=== PATIENT | female | born 2000 | race Caucasian/White ===

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

== ENCOUNTER 2019-01-17 15:28 | Emergency (ER) | payer MEDICAID, SELFPAY ==
[2019-01-08 10:05] VITALS: BMI 36.3
[2019-01-17 15:29] VITALS: BP 121/80; PULSE 107; RESP 16; TEMP 36.7; O2SAT 96; BMI 39.9
--- NOTE | 2019-01-17 15:52 | ED.VISSUMM ---
- ER Visit Summary Date of Service: 01/17/19 Chief Complaint: Depression History of Present Illness: The patient is a 18 F who presents with depression that has been getting worse over the past 2 weeks. Patient states that has been waxing and waning. Patient states she has had decreased appetite and trouble sleeping. Patient denies any visual or auditory hallucinations. Patient denies any suicidal or homicidal ideations. Patient states nothing in particular has made her more depressed recently. Patient states she does have a history of depression but does not see a psychiatrist. Patient also thinks she may have a urinary tract infection and has been having some dysuria. Physical Examination: Vital signs are stable. Patient is afebrile. Patient is in no acute distress. Oral mucosa is pink and moist. Neck is supple. Trachea is midline. There is no JVD noted. Heart was regular rate and rhythm. Lungs are clear and equal bilateral. Abdomen is soft. Bowel sounds are normal. There is no tenderness. There is no guarding noted. Skin is warm dry. Cranial nerves II through XII are intact. There are no focal motor or sensory deficits noted. The remaining physical exam is within normal limits. Test Results: CBC, basic metabolic profile, serum alcohol level, and hCG were obtained and were all negative. Urinalysis showed leukocyte esterase of 100 with 5-10 epithelial cells. Urine tox screen was positive for benzodiazepines. Emergency Department Course and Treatment: Social work was then to evaluate the patient and will arrange for outpatient follow-up. Patient is not suicidal or homicidal at this time. I do not feel the patient requires hospitalization. Patient will follow-up as an outpatient. Patient understood and was agreeable with the plan. All questions were answered. Disposition: Discharge home Impression: Depression This note was generated with [employer] software. It may contain incorrect words, spelling, and punctuation that were not noted in review of the chart prior to signing ED Disposition - Plan for ED Patient: Disposition: Home or Assisted Living Diagnosis: Depression Instructions: Depression Referrals: Kenna Sanders MD [Primary Care Provider] - 3-5 Days
[2019-01-17 16:17] LABS: Absolute Lymphocyte Count 1.82 X10^3/uL (0.83-4.51); Absolute Neutrophil Count 3.5 X10^3/uL (2.0-7.7); Basophil# 0.04 X10^3/uL; Basophil% 0.7 % (0-1); Eosinophil# 0.24 X10^3/uL; Eosinophils% 3.9 % (0-5); Hemoglobin 12.7 g/dL (12.0-15.0); Lymphocyte # 1.82 X10^3/ul (4.0); Lymphocyte % 29.6 % (19-41); Mean Corp Hgb Conc 31.8 g/dL (32-36); Mean Corpuscular Hgb 26.3 pg (27.0-32.0); Mean Platelet Vol. 8.9 fl (6.2-12.0); Monocyte# 0.54 X10^3/uL; Monocyte% 8.8 % (0-10); NRBC Flagged by Analyzer 0 % (0-5); Neutrophil # 3.49 X10^3/uL (2.7-7.7); Neutrophil % 56.7 % (47-70); Platelet Count 330 K/mm3 (150-450); Red Blood Count 4.82 M/mm3 (4.2-5.4); White Blood Count 6.2 K/mm3 (4.4-11.0)
[2019-01-17 16:24] LABS: Internal QC Validated? YES +Cl - CLEAR BKGD; Pregnancy, Serum, hCG Quali. NEGATIVE Negative
[2019-01-17 16:28] LABS: Anion Gap 8 (5-15); BUN 10 mg/dL (7-18); Calcium,Total 9.4 mg/dL (8.5-10.1); Chloride 108 mmol/L (98-107); Creatinine, Serum 0.83 mg/dL (0.55-1.02); EST Glomerular Filtration Rate 94 mL/min (>60); Est Glom Filt Rate - Afr Amer 113 mL/min (>60); Estimated Creatinine Clearance 154.57 ml/min; Glucose 89 mg/dL (74-106); Potassium 3.6 mmol/L (3.5-5.1); Sodium Level 138 mmol/L (136-145)
[2019-01-17 16:50] LABS: Mucous, Urine 0 SEEN /hpf (<or=2+); Red Blood Cells-Urine 0 SEEN /hpf (0-5)
[2019-01-17 16:52] LABS: Color, Urine Yellow (Yellow); Glucose, Dipstick Normal (Normal); Ketone-Dipstick 15 mg/dl (Negative); Leukocyte Esterase-Dipstick 100 /ul (Negative); Nitrite-Dipstick Negative (Negative); Occult Blood-Urine 25 /ul (Negative); Protein-Dipstick 15 mg/dl (Negative); Specific Gravity, Urine 1.025 (1.002-1.030); Urine Bilirubin Dipstick Negative (Negative); Urine Clarity Sl. Cloudy (Clear); Urine Urobilinogen Normal (Normal)
[2019-01-17 17:06] LABS: Bacteria 1+ /hpf (None Seen); Squamous Epithelial Cells - UA 5-10 SEEN /hpf (5-10); White Blood Cells 0-5 SEEN /hpf (0-5)
[2019-01-17 17:09] LABS: Amphetamine Urine VISTA NEGATIVE (<1000 ng/mL); Barbiturate Urine VISTA NEGATIVE (< 200 ng/mL); Benzodiazepine Urine VISTA POSITIVE (< 200 ng/mL); Cocaine Urine VISTA NEGATIVE (< 300 ng/mL); Ecstacy Urine VISTA NEGATIVE (< 500 ng/mL); Methadone Urine VISTA NEGATIVE (< 300 ng/mL); PCP Urine VISTA NEGATIVE (< 25 ng/mL); THC Urine VISTA NEGATIVE (< 50 ng/mL); Vista UDS pH Range 6
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
== END 2019-01-17 17:38 | disposition home or self-care (01) ==
PROVIDERS: Emergency Provider Emergency Medicine; Family Provider Pediatrics; PCP Pediatrics
DX: F32.9 Major depressive disorder, single episode, unspecified (principal); R30.0 Dysuria; J45.909 Unspecified asthma, uncomplicated; K21.9 Gastro-esophageal reflux disease without esophagitis; Z79.899 Other long term (current) drug therapy
CPT/HCPCS: 36415; 80048; 80307; 80320; 81001; 84703; 85025; 99282; G0480

== ENCOUNTER 2019-01-21 08:00 | Outpatient (RCR) | payer MEDICAID, SELFPAY ==
[2018-12-09 08:43] VITALS: BMI 41.9
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
--- NOTE | 2019-04-03 08:06 | HP.PT.NRP ---
HP - Discharge Summary (1) - Patient Information SAUD CARREON was seen in my office for initial evaluation on 12/16/18. The following Plan of Care was established for this patient: Initial Frequency: 2-3x /Week Initial Duration: 4-6 Weeks - Anticipated Interventions Patient/Client Instruction: Educate patient on: Condition, Plan of Care, Risk Factors, Benefits of Fitness Program For the Purpose of:: To improve self management Therapeutic Exercise to Include: Strength training, Endurance training, Balance training, Postural training, Flexibilty training, Gait and locomotor training, Passive ROM, Active ROM, Dynamic Lumbar Stabilization For the Purpose of:: To decrease pain, To increase ROM, To improve muscle performance and motor function, To increase tolerance to activity/condition/position, To improve ability of physical actions for home/community/work/leisure, To improve gait and locomotor functions This patient was last seen in our office . Pertinent comments regarding their Physical therapy will appear below: Patient has not atteneded PT in over 8 weeks and is appropriate for d/c- return to MD for further evaluation as needed. At this point I will be discontinuing this patient from physical therapy. I would be happy to see this patient again in the future if found appropriate by the physician. Thank you! Keily Cook DPT
== END 2019-01-21 19:00 | disposition home or self-care (01) ==
LOC: PT 08:00
PROVIDERS: Family Provider Pediatrics; PCP Pediatrics; Visit Provider Physician Assistant
DX: Z98.890 Other specified postprocedural states (principal)
CPT/HCPCS: 97110; 97116; 97161; 97530

== ENCOUNTER 2019-01-27 09:00 | Outpatient (RCR) | payer MEDICAID, SELFPAY ==
--- NOTE | 2019-01-27 09:03 | BH.SGPN.GN ---
Behaviors/Verbalizations/Mental Status: []Client alert and oriented, disheveled appearance. Eye contact good. Motor activity appropriate. Speech within normal limits. Affect flat, mood anxious, depressed. Thoughts linear, logical, no signs of hallucinations or delusions. Reviewed client?s symptom tracker, no risk for suicidal ideation, plan, or intent as of 01/27/19. Client Response/Progress/Benefit: []Client responded well to session, engaged and attentive. Client reports feeling ?stressed and depressed? today. It is client?s first day of IOP and client stated she came to IOP because of her worsening depression. Client stated her relationship with her family causes stress in her life and makes her want to isolate. Receptive to supportive statements from peers. Client reported she would like to learn coping skills while in IOP that will help client feel less depressed. Appeared to benefit from connecting with peers and not isolating today. Will continue IOP tx to prevent decompensation and gain knowledge of coping skills.?
--- NOTE | 2019-01-27 10:08 | BH.SGPN.GN ---
Behaviors/Verbalizations/Mental Status: [Client alert and oriented, casually dressed and fair grooming. Eye contact fair to good. Motor activity appropriate. Speech within normal limits. Affect congruent, mood anxious, dysthymic. Thoughts linear, logical, no signs of hallucinations or delusions.] Client Response/Progress/Benefit: [Client remained an active participant during group AEB client contributing to discussion, taking notes, and asking questions throughout. Client at times struggling with appropriate comments, though easily redirected with prompt. Client reported it is important to have a variety of social supports and discussed that we can be our own supports as well. She discussed struggling at times to reach out to her personal supports when needing them. Able to connect with his own supports ability to support him as well. Expressed this is difficult for him when struggling with his own mental health. Client helped group brainstorm potential consequences of not having a support system and barriers to developing social supports, which included: feeling like a burden, lack of effective communication, anxiety, and not knowing where/how to find healthy supports, struggling to set boundaries with unhealthy supports. Group identified benefits of social support as: encouraging us, increased motivation, less loneliness, different perspective, help us challenge ?what if? thoughts, ?keep you grounded?, and accountability. Client took an active role during the group activity and was open to feedback from others. Appeared to benefit from gaining awareness of barriers that keep people from seeking social support as well as identifying the benefits of increasing support. Client progressing AEB client self-report of improved mood and reduced isolation. Will continue IOP tx to reduce depression and anxiety, improve symptom management and healthy communication, and prevent decompensation.] Narrative Note: []
--- NOTE | 2019-01-27 11:20 | BH.SGPN.GN ---
Behaviors/Verbalizations/Mental Status: []Eye contact is fair. Motor activity is appropriate. Appearance is casual, appropriate grooming. Speech is Appropriate. Mood is depressed and anxious. Affect is constricted. Thoughts are linear and logical. No evidence of psychosis. Client Response/Progress/Benefit: []Client responded well to session, contributed thoughts at times during discussion and listened attentively to others. Client helped the group discuss and identify different social supports as well as the benefits of different supports. The group identified examples of personal, self-help, professional, spiritual, and co-worker social supports. Group identified benefits of each type of social support. Client reported she wants to increase healthy personal supports which pt stated would benefit her to have someone to talk to about how she is feeling. Client appeared to benefit from increasing understanding of different types of social support and identifying ways she can improve. Client to continue IOP to prevent decompensation, increase use of coping skills, and challenge distorted thoughts. Narrative Note: []
--- NOTE | 2019-01-28 09:34 | BH.NA ---
Physical Data - Vital Signs Pulse Rate: 68 Respiratory Rate: 14 Blood Pressure: 98/64 - Height/Weight Height: 1.5 m Weight:: 89.811 kg Weight in Pounds: 198.0 lbs Current Medication Compliance - Medication Compliance Do you take your medication as prescribed?: Yes Do you need assistance with taking medication?: No Have you had side effects from medication?: No Nutritional History - Appetite Nutritional Instructions:: If client shows signs of a swallowing problem, weight change of 10 pounds or more in the last month, or is on a diabetic diet, the physician will review and request a dietitian consult, as appropriate. All unintentional weight loss will be referred to the physician for decision on need for dietitian consult. Describe your appetite:: Fair Have you noticed a change in your eating habits lately?: Yes - reports eating only 1x daily Functional Assessment - Sleep Pattern Describe any problems with sleeping: Client reports sleep 4.5-5 hours nights with difficulty falling and staying asleep, which she related to rumination and physical discomfort. - Activities Motor Activity:: Functional Sensory/Communication Assess - Dental Problems Do you have any dental problems?: None - Hearing Problems Do you have any hearing problems?: Adequate - Communication Problems Do you have difficulty understanding what people are saying?: No Do you have trouble putting your thoughts into words or expressing what you want to say?: No Do people ever have trouble understanding what you say?: No What is your primary language?: Polish Learning Assessment - Education What is your level of education?: High School - Learning Barriers Learning Barriers:: Ready to learn Medical Problems/History - Pain Assessment Do you have acute or chronic pain?: Yes - R knee injury at work - Female Reproductive Do you think you may be ?: No Number of pregnancies:: 0 Number of children:: 0 Have you reached menopause?: No Do you have any history of breast disease?: No - Family History Family History: Family History (Last Updated 03/13/18 @ 14:47 by Deo Cedillo) Grandfather Heart disease Grandmother Heart disease Mother Breast cancer Mitral valve prolapse - Additional History Additional comments:: see PMHx in Summary Surgical History - Surgical History Have you had any surgeries? If so, list type and date:: Yes - R knee meniscus repair Substance Abuse - Substance Abuse Please describe substance abuse in the last 30 days:: Denies tobacco, ETOH, and illicit substance use. Mental Status Summary - Mental Status Significant Findings/Observations on Appearance and Mood:: Lisset is A&Ox4 and cooperative with interview. Steady gait. Normal activity. Staring with intense eye contact, dilated pupils. Inadequate hygiene, casually dressed. Speech is clear and of normal rate and volume. Mild anhedonia. Flat affect. Logical associations and normal process. Fair knowledge. Limited insight. Denies hallucinations, HI, and SI. Suicide Assessment - Suicidal Ideation Are you currently or have you been suicidal in the past?: Yes Suicidal Intentional Rating Scale (SIRS): Suicidal thoughts (past) Physician Notification: If Active suicidal thoughts/Will not contract for safety is checked, contact physician and document in the Physician Notification section below. Assault History/Potential - History of Assault Do you have a history of assaulting someone?: No Physician Notification: If yes, notify physician and document notification date and time below. Past Psychiatric History - MH Treatment Hx Past Psychiatric Medications:: Abilify ECT Therapy Details:: N/A Describe (age, circumstance, etc) any past hospitalizations: 2014: [facility] Current providers for mental health treatment (counselor, psychiatrist, insurance case manager, etc.): PCP - Zeny Garcia ([facility] director) Fall Risk Assessment - Age Age: Less than 60 - Mental Status Mental Status: Willing & able to ask for assistance when needed - Physical Status Physical Status: No problems - Impairments Impairments: None - Elimination Elimination: Continent AND independent - Gait or Balance Gait or Balance: Walks independently - Hx of Falls History of falls in the past 6 months: No known history - Medications/Substances Medications/substances used within the past 24 hours or ordered to administer: None of the medications/substances list above - Total Score Total Points:: 0 Physician Notification - Physician Notification Physician Notified: Ciera Harris Method of Notification: Face to Face Comments: treatment planning dicussion RN Summary of Impressions - Impressions Recommendations: Include psychiatric and medical issues, treatment planning recommendations, and discharge planning needs. Impression: General Medical Conditions: GERD, asthma, dwarfism - Level of Care How do the client's current symptoms and functional deficits support need for this level of care?: Lisset has noted a decompensation of her mental health symptoms for approximately 3 month. She endorses crying spells, isolative behavior, anhedonia, decreased concentration, and panic attacks. She has limited support, lives with her mother who does not believe in mental problems, and has had recent conflict with her boyfriend. Client has difficulty falling asleep related to rumination, and has a fair appetite, only eating once daily. IOP will provide social support and skills training to prevent further decompensation and promote gains.
--- NOTE | 2019-01-28 11:08 | BH.SGPN.GN ---
Behaviors/Verbalizations/Mental Status: []Client alert and oriented, casually dressed and groomed. Eye contact good. Motor activity appropriate. Speech within normal limits. Affect flat, mood depressed. Thoughts linear, logical, no signs of hallucinations or delusions. Client Response/Progress/Benefit: []Client responded well to session, providing examples and participating when prompted. Client identified managing depression as the one thing she wants to start taking more action on in her mental health treatment. Client reported focusing on this will help client because ?depression and PTSD are taking over my life.? Client attentive during psychoeducation on the different zones of change. Client able to give examples of benefits and costs in each zone. Client identified two small activities to promote behavioral activation towards her goal of managing depression. Client plans to listen to her favorite bands with friends when she wants to isolate and engage in self-care by going to her favorite store. Client shared both activities will get her out of her house which improves her mood. Benefited from psychoeducation and small goal setting. Progress limited as it is client?s second day in IOP. Will continue tx to prevent decompensation and improve mood stability.
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
--- NOTE | 2019-01-28 12:13 | BH.DR.ITP ---
Initial Treatment Plan - Patient Information Visit Information: ADMISSION DATE: EXPECTED LOS: 4-6 weeks - Problems/Symptoms Problem #1:: Depression Symptom:: Sadness, anhedonia, low energy Problem #2:: Anxiety Symptom:: Panic attacks Problem #3:: PTSD Symptom:: nightmares, glashbacks, avoidance
--- NOTE | 2019-01-29 10:10 | BH.SGPN.GN ---
Behaviors/Verbalizations/Mental Status: []Client alert and oriented, casually dressed and groomed. Eye contact good. Motor activity appropriate. Speech within normal limits. Affect constricted, mood dysthymic. Thoughts linear, logical, no signs of hallucinations or delusions. Client Response/Progress/Benefit: []Client active participant as shown by client?s participation in discussion. Client reported self-care ?isn?t easy?you can?t just put makeup on and feel better.? Client participated in the discussion of the common myths about self-care including self-care is selfish, easy, something one does alone, just personal hygiene, and always fun. Client gave examples of self-care activities such as boundary setting, saying no, and doing things one enjoys. Client stated if one does not engage in self-care it will likely result in being overwhelmed, burnout, and more depressed. Client reported negative thinking and guilt can keep a person from engaging in self-care. Client engaged in activity and able to connect how sometimes to make self-care a priority, a person must set boundaries in other areas of their lives. Client seemed to benefit from increased awareness of the importance of self-care. Client showing progress as shown by her increased engagement and contributions in session. Will continue tx to prevent decompensation and increase ability to manage depressive symptoms.
--- NOTE | 2019-01-29 11:15 | BH.SGPN.GN ---
Behaviors/Verbalizations/Mental Status: [Client alert and oriented, casually dressed and fair grooming. Eye contact fair to good. Motor activity appropriate. Speech within normal limits. Affect congruent, mood anxious, euthymic. Thoughts linear, logical, no signs of hallucinations or delusions.] Client Response/Progress/Benefit: [Client receptive of session, listening and providing some contributions to discussion. At times struggling with off topic remarks or looking at her phone. Willing to complete worksheet activity. Participated as the group further processed the activity and connected with the importance of self-care in maintaining mental health and promoting balance. Client completed self-assessment activity on the different areas of self-care and was able to identify current practices she uses and areas she would benefit to improve upon. Client reported she can improve her social and emotional self-care. Client set a goal to improve in the area of social self-care. Client?s goal is to practice reducing isolation by reaching out more to supports outside of her immediate family. Client shared this would benefit client because client has struggled with conflict and unhealthy communication when relying solely on family supports. She reports this reinforces desire to isolate and depression sx and would benefit from expanding support network. Client appeared to benefit from increasing awareness of how she can improve her self-care balance. Progress noted as client has been able to increase insight regarding impact of personal decisions on her mental health and relationships. Will continue IOP tx to promote gains and to further improve daily functioning.] Narrative Note: []
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
--- NOTE | 2019-01-29 15:05 | BH.PSA ---
Development & Family of Origin - Family History Family History: Family History (Last Updated 03/13/18 @ 14:47 by Deo Cedillo) Grandfather Heart disease Grandmother Heart disease Mother Breast cancer Mitral valve prolapse
--- NOTE | 2019-01-29 15:06 | BH.MTP ---
Master Treatment Plan - Patient Information Program Physician:: Dr. Ciera Davidson Primary Therapist:: EV Boykin - Psychiatric Diagnoses Psychiatric Diagnoses:: Major depressive disorder recurrent severe without psychosis, panic attacks without Agoura phobia. Diagnosis Code(s):: F33.2 - Estimated LOS Estimated LOS (in weeks):: 6 Problem/Goal #1 - Problem/Goal #1 Stated Goal:: Client will decrease depressive symptoms, isolation, hopelessness, anhedonia, and agitation due to Major Depressive Disorder through Intensive Outpatient Program as evidenced by reduction in depression scales on DSM-5 cross-cutting scales. Description of Barriers: hx of non-compliant with medications, poor motivation, tense relationships with supports and limited support, financial stressors, transportation issues. Functional Impact: Pt reports ongoing issues with isolating, not currently working, and not caring for herself or her personal hygiene due to depressive symptoms, daily panic attacks due to increased medical anxiety resulting in nonmedically related ED visits. Goal Relevant Strengths/Supports: Reports desire to learn and is motivated to improve mental health sx, indicates flexibility and willingness to try something new, as well as ability to empathize with others. - Objectives Objective #1 Stated Objective: Identify and replace 3-4 negative self-talk messages that reinforce depressive symptoms. Interventions: Through individual and group counseling will help client identify distorted, negative beliefs about self and world and replace those messages with positive, affirmative messages. Discharge Criteria: Client will have achieved this goal when can identify at least 3 negative self-talk messages and replace those messages with positive, affirmative messages. Target Date: 03/11/19 Review Date: 02/25/19 Objective #2 Stated Objective: Client will identify 2-3 coping strategies to use when feeling overwhelmed and show consistent use of these strategies. Interventions: Group and individual counseling will help client process triggers to increased symptoms, and then identify ways to manage these feelings and thoughts. Therapist will also work on helping client feel less isolated and understand better behaviors and escalating tendencies. Discharge Criteria: Client will have met this goal when can safely use 1-2 coping strategies when feeling overwhelmed. Target Date: 03/11/19 Review Date: 02/25/19 Problem/Goal #2 - Problem/Goal #2 Stated Goal:: Stabilize anxiety level and improve ability to cope with PTSD related triggers, while increasing ability to function on daily basis through Intensive Outpatient Services as evidenced by reduction on DSM 5 anxiety scales. Description of Barriers: hx of non-compliant with medications, poor motivation, tense relationships with supports and limited support, financial stressors, transportation issues. Functional Impact: Pt reports ongoing issues with isolating, not currently working, and not caring for herself or her personal hygiene due to depressive symptoms, daily panic attacks due to increased medical anxiety resulting in nonmedically related ED visits. Goal Relevant Strengths/Supports: Reports desire to learn and is motivated to improve mental health sx, indicates flexibility and willingness to try something new, as well as ability to empathize with others. - Objectives Objective #1 Stated Objective: Client will identify 2-3 anxiety and PTSD related triggers, physiological warning signs, and 2 coping skills to use when feeling anxious Interventions: Through individual and group counseling will provide patients with education on coping skills for anxiety and warning signs/triggers to anxiety. Provide psychoeducation on PTSD and aid pt in identifying warning signs and triggers for common PTSD related sx. Introduce pt to several calming and distress tolerance skills to apply in times of increased anxiety to reduce likelihood of panic or flashbacks Discharge Criteria: Pt will be able to identify 2-3 triggers to anxiety and PTSD related sx, physiological warning signs of anxiety and PTSD, and 2-3 coping skills to decrease anxiety, panic, and PTSD related flashbacks. Target Date: 03/11/19 Review Date: 02/25/19
--- NOTE | 2019-02-02 09:03 | BH.SGPN.GN ---
Behaviors/Verbalizations/Mental Status: []Client alert and oriented, disheveled appearance. Eye contact good. Motor activity appropriate. Speech within normal limits. Affect flat. Mood anxious, depressed. Thoughts linear, logical, no signs of hallucinations or delusions. Reviewed client?s symptom tracker, no risk for suicidal ideation, plan, or intent as of 02/02/19. Client Response/Progress/Benefit: []Client responded well to session, receptive to feedback from peers. Client reports feeling ?stressed? today due to conflict with her mother. Client shared she often feels invalidated by her mother because her mother ?always tells me to just get over it.? Client was receptive to supportive statements from peers on ways to improve other support networks in client?s life. Client able to identify mental health wins today which included going on a walk instead of isolating and looking forward to talking with family. Client appeared to benefit from processing her stressors and receiving emotional support. Will continue tx as client has increased awareness of coping skills, but she continues to struggle with mood dysregulation.?
--- NOTE | 2019-02-02 10:15 | BH.SGPN.GN ---
Behaviors/Verbalizations/Mental Status: []Client alert and oriented, casually dressed and groomed. Eye contact fair. Motor activity appropriate. Speech within normal limits. Affect constricted, mood depressed and anxious. Thoughts linear, logical, no signs of hallucinations or delusions. Client Response/Progress/Benefit: []Pt semi-active participant AEB pt contributing thoughts at times during discussion and appearing to listen attentively to peers. Group identified unhealthy boundaries to include: difficulty saying no, not valuing own thoughts/opinions, sharing too much information, and not asking for help. Pt provided several examples of situations in her life that she is unsure of how to set boundaries. Pt receptive to feedback from group and therapist. Pt reported in regards to boundaries pt struggles with: saying no to others, engaging in self-care, taking on too much from others, and believing she has to hold her supports together. Pt seemed to benefit from increased awareness how her difficulties with setting boundaries negatively impacts her mental health. Pt to continue IOP level of care to decrease depressive symptoms, increase healthy coping skills, and prevent decompensation. Narrative Note: []
--- NOTE | 2019-02-02 11:26 | BH.SGPN.GN ---
Behaviors/Verbalizations/Mental Status: [Client alert and oriented, casually dressed though appearing unbathed. Eye contact good. Motor activity appropriate. Speech within normal limits. Affect congruent to topic being discussed, mood depressed. Thoughts linear and logical, no signs of hallucinations or delusions. ] Client Response/Progress/Benefit: [Pt responded well to session, semi-active participant DEDE providing some input and remaining an active listener throughout. She worked with the group to review different boundary setting styles and reported connecting with the ?porous? boundary setting type. Pt reflected that her boundary style has impacted overall ability to take care of herself and has resulted in increased depression and feeling taken advantage of by others as a as a result. Pt indicated a desire to work towards healthier boundaries and actively listened as the group reviewed characteristics of healthy boundaries. She discussed struggling with knowing how to set and maintain boundaries and appeared to benefit from increasing awareness of personal boundary style and from learning ways to increase healthy boundaries. Pt appeared to have difficulties in identifying strategies she could use to improve healthy boundaries though actively listend as fellow participants provided potential ways to improve personal boundaries. Recommended continued IOP tx to improve boundary setting, increase emotion regulation skills, and prevent decompensation.] Narrative Note: []
--- NOTE | 2019-02-03 10:15 | BH.SGPN.GN ---
Behaviors/Verbalizations/Mental Status: []Client alert and oriented, disheveled appearance. Eye contact good. Motor activity appropriate. Speech within normal limits. Affect flat, mood depressed. Thoughts linear, logical, no signs of hallucinations or delusions. Client Response/Progress/Benefit: []Client attentive and engaged throughout session. Client connected with the quote and shared ?there?s so much conflict in life? and that sometimes client will ?let something small turn into something big.? Worked together with the group to define and identify differences between internal and external conflict. Group identified and discussed the benefits of addressing internal/external conflict which includes; not letting emotions stockpile, setting boundaries, preventing further issues, and bettering mental health. Client worked with group to identify barriers to overcoming conflict which included; self-sabotage, poor emotional regulation, assumptions, avoidance, shutting down, negative thinking, and low self-esteem. Attentive during psychoeducation on different conflict styles such as avoiding, accommodating, competing, and collaborative. The group began to review benefits and drawbacks to each style and client provided insight to discussion. Benefited as she was able to identify and define conflict as well as increase awareness of how conflict style impacts mental health. Progress noted in client?s increased self-awareness and engagement in group. Will continue IOP tx to prevent decompensation of depressive symptoms and increase healthy coping skills.
--- NOTE | 2019-02-03 11:16 | BH.SGPN.GN ---
Behaviors/Verbalizations/Mental Status: [Client alert and oriented, casually dressed though appearing unbathed and having a distinct body odor. Eye contact fair to good. Motor activity appropriate. Speech within normal limits. Affect congruent to topic being discussed, mood depressed and anxious. Thoughts linear and logical, no signs of hallucinations or delusions.] Client Response/Progress/Benefit: [Pt responded well to session, providing some input and actively listening throughout. She did well to work with the group on identifying the various characteristics, potential drawbacks and benefits, as well as appropriate times to use the conflict resolution styles not reviewed in previous group. Pt indicated connecting most with the ?avoiding? approach to conflict and identified that this style ?feels the safest? however noted she has recognized increased depressive sx when engaging in avoidant behavior. Pt appeared to benefit from increasing awareness of her personal conflict resolution style and from learning ways to increase healthy conflict resolution. Pt reports fears of using the skills learned as they are uncomfortable and she is worried others would retaliate is she advocates for herself. Expressed plans to talk to healthy supports more frequently in order to build confidence and work towards becoming more comfortable with using other approaches to conflict. Pt progress noted in increased insight regarding impacts of conflict style on her mental health however continues to struggle with healthy boundaries which appears to impact pt ability to address conflict in healthy ways. Recommended continued IOP tx to improve emotion regulation skills, better stabilize mood and reduce depressive sx, as well as prevent decompensation.] Narrative Note: []
--- NOTE | 2019-02-04 09:06 | BH.SGPN.GN ---
Behaviors/Verbalizations/Mental Status: []Client alert and oriented, disheveled appearance. Eye contact good. Motor activity appropriate. Speech within normal limits. Affect flat, mood depressed. Thoughts linear, logical, no signs of hallucinations or delusions. Reviewed client?s symptom tracker, no risk for suicidal ideation, plan, or intent as of 02/04/19. Client Response/Progress/Benefit: []Client responded well to session, receptive to group support. Client reports feeling ?depressed? today due to her fianc? breaking up with her. Client reported her fianc? ended their relationship and told client he had been cheating on client for a long period of time. Client shared she was tearful and unable to sleep after hearing this, but instead of isolating, client reached out to a friend. Client shared her support gave her positive feedback and client was receptive to feedback from curve saw operator. Client reported she plans to spend time with her baby cousin today which client stated this will improve her mood. Client able to identify other coping skills that client can use to cope which included getting out of her house and listening to uplifting music. Appeared to benefit from connecting with peers and receiving support. Client to continue IOP to prevent further decompensation and improve emotional regulation.?
--- NOTE | 2019-02-04 10:14 | BH.SGPN.GN ---
Behaviors/Verbalizations/Mental Status: []Client alert and oriented, casually dressed, disheveled grooming. Eye contact fair. Motor activity WNL. Speech appropriate rate/tone. Affect constricted, mood depressed and anxious. Thoughts linear, logical, no signs of hallucinations or delusions. Client Response/Progress/Benefit: []Pt responded well to session, provided input, supportive feedback, and listened attentively to peers. Pt appeared to connect with the quote, providing insight that ?can't move forward if we keep thinking of the what ifs and shoulds. Pt gave example of her recent breakup that if she keeps rereading the past then she will stay in a rut. Pt participated in group discussion regarding mental health benefits of change. Pt identified three small personal changes to improve mental health as: start expressing emotions to support network, increase self confidence, and exercise. Identified current barriers keeping pt from making those changes to be no self-love, doesn't trust others, and no healthy support. Pt appeared to benefit from gaining awareness of personal changes that would improve mental health and the barriers keeping client stuck. Progress noted in client level of insight regarding current barriers impacting mental health change and ability to make personal connections with topic at hand. Continue IOP to further increase healthy coping skills, improve socialization and use of supports, and prevent decompensation. Narrative Note: []
--- NOTE | 2019-02-04 11:17 | BH.SGPN.GN ---
Behaviors/Verbalizations/Mental Status: []Client alert and oriented, disheveled in appearance. Eye contact fair. Motor activity appropriate. Speech within normal limits. Affect constricted, mood anxious and depressed. Thoughts linear, logical, no signs of hallucinations or delusions. Client Response/Progress/Benefit: [Pt was an semi-active participant, did well to participate in group activity and provided insight and input to discussion at times. Worked with group members to identify connections between activity and strategies for overcoming barriers to making changes. Identified a specific change she would like to make for her mental health, barriers to making that change, and a SMART goal to reach that change. Shared she would like to work on building her self-esteem. Pt stated her SMART goal is to give herself 2 compliments 1-2 times everyday when she first wakes up and before bed. Benefited from group as she was able to identify strategies to overcome barriers to change and create a plan for implementing one small change promoting personal growth. Pt to continue IOP level of care to increase use of healthy coping skills, challenge distorted thoughts and prevent decompensation.
--- NOTE | 2019-02-09 09:00 | BH.SGPN.GN ---
Behaviors/Verbalizations/Mental Status: [] Eye contact is good. Motor activity is appropriate. Appearance is casual. Speech is Appropriate. Mood is euthymic. Affect is full. Thoughts are linear and logical. No evidence of psychosis. Reviewed daily check in sheet and no reports of suicidal ideations or intent. Client Response/Progress/Benefit: [] Pt was an active participant in group discussion. Emotion for today is happy. Reports improved mood in the past couple days mainly due to new romantic relationship. Notes that she was in the ER on 02/05/19 due to panic attack in response to break-up with her fiance. She described her anxiety attacks symptoms which included; increased HR, chest pain, shakiness, burning, headaches, and SOB. Notes that stressors related to her ex were overwhelming. At this point she is beginning to accept the break-up. Group provided feedback and support. Progress noted, however group encouraged her to take her new relationship slow. Limited use of coping skills during her anxiety attack and ER visit. Benefited from group support, feedback, and encouragement. Will continue in IOP to maintain safety, prevent decompensation, and increase coping skills. Narrative Note: []
--- NOTE | 2019-02-09 10:10 | BH.SGPN.GN ---
Behaviors/Verbalizations/Mental Status: []Client alert and oriented, casually dressed and fairly groomed. Eye contact fair. Motor activity appropriate. Speech within normal limits. Affect constricted, mood anxious and depressed. Thoughts linear, logical, no signs of hallucinations or delusions. Client Response/Progress/Benefit: []Pt engaged in session as evidenced by pt providing input at times during session and listening attentively to peers. Pt connected with peers that at times she has let her mental illness define her. Pt stated she engages in self-stigma by starting to believe the negative thoughts about having mental illness, which she reported makes her feel like she will always be like this. Pt stated mental health stigma can keep her stuck from moving forward. Pt worked cooperatively with small group to identify various myths and facts about mental illness. Pt seemed to benefit from increased awareness of impact societal and self-stigma has on progress. Progress noted with increased awareness of how thought patterns impact her functioning. Pt to continue IOP level of care to decrease depression, increase use of healthy coping, and prevent decompensation. Narrative Note: []
--- NOTE | 2019-02-09 11:14 | BH.SGPN.GN ---
Behaviors/Verbalizations/Mental Status: []Client alert and oriented, disheveled appearance. Eye contact good. Motor activity appropriate. Speech within normal limits. Affect constricted, mood dysthymic. Thoughts linear, logical, no signs of hallucinations or delusions. Client Response/Progress/Benefit: []Client responded well to session, participating in group discussion. Group identified the benefits of addressing stigma which included; increased self-confidence, feeling accepted, improved relationships, and less self-deprecation. Client helped the group identify thoughts and behaviors people engage in that reinforce stigma. Client reported she uses minimization and negative thinking which reinforces stigma in her life. Group brainstormed strategies to combat social and perceived stigma which included; talking to supports, practicing positive self-talk, not using labeling language, and providing psychoeducation. Client reported she will practice accepting compliments to combat stigma. Appeared to benefit from increasing awareness of ways he reinforces stigma and how to combat stigma. Will continue IOP tx as client continues to struggle with implementing healthy coping skills on a daily basis.?
--- NOTE | 2019-02-11 11:32 | BH.COMM_ITS ---
Communication Note - Communication with Client Communication Note: pt missed IOP today due to miscommunication with trans portation.
--- NOTE | 2019-02-12 09:00 | BH.SGPN.GN ---
Behaviors/Verbalizations/Mental Status: [] Eye contact is good. Motor activity is appropriate. Appearance is casual. Speech is Appropriate. Mood is anxious. Affect is congruent. Thoughts are linear and logical. No evidence of psychosis. Reviewed daily check in sheet and no reports of suicidal ideations or intent Client Response/Progress/Benefit: [] Pt participated at time during group discussions. Reports increase in anxiety and depression. Notes somatic issues specifically related to chest pain which she went to the ER last night. She is vague regarding the symptoms and does not believe they are related to anxiety or panic. Reports that she has scheduled an appt with PCP to address this concern and the ER has assured her on several occasions no immediate concerns for her heart. Recent creak-up with claudine however notes that she has already started dating again. Emotion is sleepy and nauseated. No progress noted. Limits insight. Judgment is poor. Skills used are distraction. Not using any skills on consistent basis. Benefits from group and IOP mainly through support and socialization. Will continue in IOP to prevent decompensation, maintain safety, and increase healthy coping skills. Narrative Note: []
--- NOTE | 2019-02-12 10:08 | BH.SGPN.GN ---
Behaviors/Verbalizations/Mental Status: []Client alert and oriented, neatly dressed and groomed. Eye contact good. Motor activity appropriate. Speech within normal limits. Affect flat, mood dysthymic. Thoughts linear, logical, no signs of hallucinations or delusions. Client Response/Progress/Benefit: []Client responded well to session, attentive and participating in discussion. Attentive during discussion of quote. Listened and took notes during discussion of things that can keep people feeling trapped or stuck in life including; isolation, lack of trust, substance use, focusing on negatives, lack of awareness, denial, and lack of self-worth. Group discussed the connection between thoughts, emotions, and behaviors as well as how negative thinking can keep a person stuck. Client attentive during psychoeducation on maintenance cycles. Client able to identify negative thoughts that have reinforced depression and kept client feeling trapped. Client shared her negative thought which was ?I should love myself, but I don?t know how.? Client reported this thought has caused increased depression. Appeared to benefit from gaining awareness of how negative thoughts reinforce mental health symptoms and keep people stuck. Progress noted in client?s report of increased self-awareness and knowledge of coping skills. Will continue IOP tx to prevent decompensation and maintain safety.
--- NOTE | 2019-02-12 11:10 | BH.SGPN.GN ---
Behaviors/Verbalizations/Mental Status: []Client alert and oriented, casually dressed and groomed. Eye contact good. Motor activity restless. Speech within normal limits. Affect congruent, mood dysthymic. Thoughts linear, logical, no signs of hallucinations or delusions. Client Response/Progress/Benefit: []Client responded well to session, contributing to discussion and listening attentively to others. Client appeared to connect with maintenance cycles and recognized how negative thinking can keep a person stuck. Client identified a negative thought that has kept her stuck. Client?s thought was ?I should love myself, but I don't know how.? Client able to connect how this thought maintains depressive cycle and leads her to not try anything. Client able to reframe the thought to ?If I try, I can learn how to show love to myself.? Client shared this thought would improve her mental health because it would make her feel more confident. Client appeared to benefit from practicing challenging negative thinking. Client to continue IOP to prevent decompensation. Narrative Note: []
--- NOTE | 2019-02-17 09:00 | BH.SGPN.GN ---
Behaviors/Verbalizations/Mental Status: [] Eye contact is good. Motor activity is appropriate. Appearance is casual. Speech is Appropriate. Mood is anxious. Affect is congruent. Thoughts are linear and logical. No evidence of psychosis. Reviewed daily check in sheet and no reports of suicidal ideations or intent. Client Response/Progress/Benefit: [] Active participant in group activity. Pt notes that her emotion today is leveled. Self-report sheet indicates anxiety is 4/5 and panic is 3/5 for today. Notes depression and anxiety. Primary from of coping is to distract herself through walks or cleaning the house. Beleives that her depression and anxiety are not as bad as it has been in the past few weeks. Struggles to stay in topic at times and is often superficial. Progress noted per pt report. Benefited from group support, encouragement, and feedback. Will continue in IOP to prevent decompensation, maintain safety, and increase healthy coping skills. Narrative Note: []
--- NOTE | 2019-02-17 10:10 | BH.SGPN.GN ---
Behaviors/Verbalizations/Mental Status: [] Eye contact is good. Motor activity is appropriate. Appearance is casual. Speech is Appropriate. Mood is depressed. Affect is flat. Thoughts are linear and logical. No evidence of psychosis. Client Response/Progress/Benefit: [] Pt was an active participant in group discussion and activity. Contributed to discussion on quote of the day. Group worked together to come up with common negative forces in thief lives which can hold them back from growth. There included; toxic relationships, negative thoughts, cognitive distortions, fear of failure, anger, and unhealthy coping skills (alcohol, sleeping to escape, isolation). Group then worked together to identify common positive forces which help us grow. Theses included; Healthy coping skills, positive support, self-care, patience, realistic and positive thinking, and following treatment suggestions. Pt was attentive during psychoeducation on the importance of utilizing many aspects of positive forces to help one grow. Benefited from group with increased insight and awareness on the impact of negative and positive forces on mental wellness. Narrative Note: []
--- NOTE | 2019-02-17 11:10 | BH.SGPN.GN ---
Behaviors/Verbalizations/Mental Status: []Client alert and oriented, casually dressed and fair grooming. Eye contact fair. Motor activity appropriate. Speech within normal limits. Affect congruent, mood euthymic, slightly anxious. Thoughts linear, logical, no signs of hallucinations or delusions. Client Response/Progress/Benefit: []Client active participant as evidenced by client providing input throughout session and listening attentively to peers. Client completed worksheet identifying her positive and negative forces in life. Client identified positive forces that aid in progressing toward mental health goals include: best friend, positive self-talk, self control, using healthy coping skills, and her cousin. Client indicated negative forces that prevent progress include: difficulty trusting others, PTSD flashbacks and symptoms, family problems, negative thoughts, and anxiety. Client identified she believes she is moving towards progress, identifying her healthy coping and best friend as the most helpful positive forces. Pt stated her PTSD symptoms is the negative force that can hinder her progress. Client seemed to benefit from increased awareness of personal positive and negative forces in life and impact they have on mental health and wellness. Client to continue IOP level of care to decrease depression, increase utilization healthy coping and prevent decompensation. Narrative Note: []
--- NOTE | 2019-02-19 10:11 | BH.SGPN.GN ---
Behaviors/Verbalizations/Mental Status: [Eye contact is good. Motor activity appropriate. Appearance is causal, grooming fair. Speech is appropriate rate and tone, more talkative than usual baseline. Mood is euthymic, positive. Affect is congruent to mood. Thoughts are linear and logical. No evidence of psychosis. ] Client Response/Progress/Benefit: [Pt was an active participant in group activity and discussion, displaying progress in overall ability to relate to topic as well as provide relevant input throughout discussion. Pt listened as others shared insight on quote of the day and noted agreeing with the difficulty in celebrating small strides towards individual goals. Pt worked together with group to define goals and identify the purpose of developing goals. Pt expressed connecting with the idea that goals can help to give you something to work towards. She did well to remain engaged throughout and additionally worked with group to identify barriers to setting and accomplishing goals. Pt identified her largest barrier as a lack of motivation to follow through once a goal has been set. Shared example of setting same New Year?s resolution each year. Pt benefited from increase awareness of goal-setting methods and education on developing SMART goals. Recommended to continue in IOP tx to prevent decompensation, continue to develop healthy boundaries, and promote healthy change behaviors.] Narrative Note: []
--- NOTE | 2019-02-19 11:15 | BH.SGPN.GN ---
Behaviors/Verbalizations/Mental Status: []Eye contact is good. Motor activity is appropriate. Appearance is casual. Grooming poor. Speech is Appropriate. Mood is depressed and anxious. Affect is congruent. Thoughts are linear and logical. No evidence of psychosis. Client Response/Progress/Benefit: []Pt attentive throughout, contributed input to discussion. Pt able to connect with peers comments that it is helpful to have support when trying to reach a goal. Engaged in creating own mental health SMART goal and seemed to benefit from developing ways to overcome potential barriers to reaching this goal. Pt identified her SMART goal is to practice two different breathing techniques 3 three times a day. Pt stated this goal will benefit her mental health by decreasing anxiety and increasing utilization of healthy coping skills. Pt identified potential barriers to reaching goal to include: negative thoughts, not having time, and worry won't be able to complete goal. Pt able to identify several solutions for each potential barrier. Seemed to benefit from creating a SMART goal that will benefit pt's mental health. Pt to continue IOP to continue to use healthy coping, identify and challenge distorted thoughts, and prevent decompensation. Narrative Note: []
--- NOTE | 2019-02-19 15:06 | BH.MDN ---
Multi-Disciplinary Note - Note 30-min Individual Time Started:: 09:22 Date: 02/19/19 Purpose of session/treatment goals addressed:: Purpose of session was to reviewed progress in program, identify current barriers to problems, and discuss potential solutions for addressing identified barriers.. Assessed current symptoms and functioning. Eye Contact:: Good Motor Activity:: Appropriate Appearance:: Casual, Other - grooming appears fair, unbathed Speech:: Pressured Mood:: Euthymic, Anxious Affect:: Full Thoughts:: Linear, Logical, No evidence of hallucinations/delusions noted Staff Interventions:: Asked open-ended and furthering questions to assess current symptoms, stressors, and tx progress. Utilized HI techniques to aid pt in identifying current barriers to ongoing progress as well as elicit change behaviors to begin addressing identified barriers. Connected pt to local resources to aid in addressing barriers of housing and employment. Client Response:: Pt receptive of session and indicates overall a more positive and optimistic mood which she attributes to psychiatric medications working as well as having support of IOP program. Pt discussed utilizing skills of playing with her grandmother?s pet ferret, practicing, and keeping her poetry journal. Shared that these are often helpful in times of increased anxiety or when having disagreements with her mother who continues to be a primary stressor. Pt admits that although she acknowledges her relationship with her mother is toxic and often triggers negative thoughts that lead to increased depressive sx, she as not followed through with looking into alternative housing options as previously discussed. Shared not having time due to being preoccupied by grandmother?s recent cancer diagnosis as pt has been attempting to attend as many appointments as possible. Additionally, notes continued isolating behaviors and expressed finances as a barrier to engaging in activities she enjoys such as swimming and yoga. Pt receptive of local resources that assist with job placement and housing. Open to beginning application for local assistance program and indicated willingness to complete application for the [employer] program prior to next session. Reports plans to continue utilizing skills of deep breathing and journaling. Risks/Concerns:: No risks or concerns. Pt denies any active suicidal ideations, plan, or intent as of 02/19/19. Future-oriented. Progress Toward Goals/Plan:: Pt has been an active participant in group and is consistently improving in her levels of engagement in both group and individual sessions. She is consistent in attending the program. Increased awareness and education, however, struggles with connecting education to her own mental health as well as implementing skills learned regarding conflict resolution and healthy boundaries. Continues to report isolative behaviors though indicates decreased depression due to use of journaling, deep breathing, and IOP group. Plan is to continue in IOP to improve emotion regulation, use of healthy boundary setting, and prevent decompensation.
--- NOTE | 2019-02-20 09:05 | BH.SGPN.GN ---
Behaviors/Verbalizations/Mental Status: [] Eye contact is good. Motor activity is appropriate. Appearance is disheveled. Speech is Appropriate. Mood is anxious. Affect is congruent. Thoughts are linear and logical. No evidence of psychosis. Reviewed daily check in sheet and no reports of suicidal ideations or intent. Client Response/Progress/Benefit: [] Pt was an active participant in group discussion. Vague and superficial check-in. Notes that he anxiety has worsened however no specific trigger noted. Talked about her re-occurring chest pain and how the ER has notes no cardiac issues. Some insight that is more likely due to her anxiety. When asked about what she could do to help minimize her anxiety she could not answer. Group provided feedback and suggestions about skills to utilize when feeling anxious or panic. Visiting with her GMA whom she has not seen in 5 years this weekend. Anxiety that her father might be there with whom she has conflicted relationship. Group encouraged her to speak with GMA to ensure father is not present as this could be significant trigger for her. 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 Fearful that dwarfism and its [id number] could lead to future concerns with brain and body development. Limited progress noted as pt is not attempting to utilizing education or skills learned in IOP. Benefited from group support, encouragement, and feedback. Will continue in IOP to maintain safety, prevent decompensation, and increase healthy coping skills. Narrative Note: []
--- NOTE | 2019-02-20 10:11 | BH.SGPN.GN ---
Behaviors/Verbalizations/Mental Status: []Eye contact is good. Motor activity is appropriate. Appearance is disheveled. Speech is Appropriate. Mood is anxious. Affect is congruent. Thoughts are linear and logical. No evidence of psychosis. Client Response/Progress/Benefit: []Pt responded well to session AEB pt listening attentively to others and contributing to discussion at times. Pt stated when she ignores her stressors it results in her stressors continuing to build up which results in her feeling overwhelmed. Pt connected with peers during discussion about common unhealthy skills that are often used to manage stressors and mental health. Pt stated in the past she used cutting as an unhealthy coping skill, which she states at the time was all she knew. Pt seemed to benefit from increased awareness of benefits of using healthy coping skills and understanding importance of having balance between internal and external coping skills. Pt to continue IOP level of care to improve emotional regulation, increase utilization of healthy coping skills, and prevent decompensation. Narrative Note: []
--- NOTE | 2019-02-20 11:14 | BH.SGPN.GN ---
Behaviors/Verbalizations/Mental Status: [Client alert and oriented, casually dressed in sweats, grooming fair. Eye contact good. Motor activity appropriate. Speech within normal limits. Affect congruent, mood euthymic. Thoughts linear, logical, no signs of hallucinations or delusions. ] Client Response/Progress/Benefit: [Client responded well to session, active participant in discussion and taking notes and nodding throughout. Client appeared to connect with the activity from second group and helped the group identify coping skills used to regulate emotions during times of setback or increased stress. Client reported that having the support of the group and using positive self-talk statements allowed her to keep from giving up when frustrated. Client actively listened as the group discussed the different categories of coping skills and provided examples. Client reported she has been interested in trying grounding skills but is not very familiar with what she can do in that area. She created a coping skills ?menu? from the five categories of coping skills. Client indicated that she would like to increase coping skills in the area of grounding and identified practicing the ?5-senses? mindfulness tool as a way to better familiarize herself with it. Client appeared to benefit from increasing her repertoire of healthy coping skills. Some progress noted in client?s ability to identify various healthy coping skills she could benefit from utilizing; however, pt continues to reports struggling with active application of skills learned outside of tx environment. Will continue IOP to promote healthy change behaviors, improve healthy boundary setting, and decrease isolation.] Narrative Note: []
[2019-04-08 14:24] VITALS: BP 98/64; PULSE 68; RESP 14
== END 2019-02-21 23:59 ==
LOC: BHIOP 09:00
PROVIDERS: Family Provider Pediatrics; PCP Pediatrics; Referring Provider Psychiatry & Neurology Psychiatry; Visit Provider Psychiatry & Neurology Psychiatry
DX: F33.2 Major depressive disorder, recurrent severe without psychotic features (principal); F41.0 Panic disorder [episodic paroxysmal anxiety]
CPT/HCPCS: 99204; H0035; H2012; H2020; T1002; 90832; 90834; 90853

== ENCOUNTER 2019-01-31 04:25 | Emergency (ER) | payer MEDICAID, SELFPAY ==
[2019-01-31 04:26] VITALS: BP 122/97; PULSE 81; RESP 24; TEMP 37.1; O2SAT 97; BMI 40.5
--- NOTE | 2019-01-31 04:42 | EKG12_ITS ---
Test Reason : CP Blood Pressure : / mmHG Vent. Rate : 065 BPM Atrial Rate : 065 BPM P-R Int : 124 ms QRS Dur : 080 ms QT Int : 388 ms P-R-T Axes : 012 000 005 degrees QTc Int : 403 ms Normal sinus rhythm Voltage criteria for left ventricular hypertrophy Abnormal ECG Confirmed by TEVIN ANGLIN, JOANNE ([id number]), food expeditor MACK LEDBETTER ([id number]) on 02/02/2019 1:44:26 PM Referred By: Ciera Harris Confirmed By:JOANNE ABARCA MD
--- NOTE | 2019-01-31 04:49 | ED.DCSUM_ITS ---
History of Present Illness Chief Complaint: Chest Pain Informant: Patient, Parent, EMS Onset: Hours - 1-2 Activity at onset: Sleep - Although mother states she has been up all night talking on the phone Quality: - - Squeezing Location: Substernal Current Severity: Moderate Maximum Severity: Moderate Worsened By: - - Lying supine. Not Worsened By: Exertion, Movement of Arm, Movement of Torso, Breathing, Coughing Relieved By: - - Sitting up. Associated Symptoms: Lightheadedness. Negative for: Nausea, Vomiting, Diaphoresis, Dyspnea, Cough, Fever, Palpitations Narrative: Patient has a history of depression and reflux. She has taken her omeprazole this morning. It has been suggested that prior episodes of her chest discomfort have been reflux in the past. For dinner last night, her last meal, she had some turkey with chipotle sauce on it. She has tried no other treatments this morning since the onset of the discomfort. She denies dyspnea, recent travel, hospitalization, leg pain or swelling, or history of DVT/PE. No recent cough or hemoptysis. Prior Similar Symptoms: Yes Recent Illness/Hospitalization: No CVD Risk Factors: Negative for: Hypertension, Diabetes, Hypercholesterolemia, Family History 1' </=55, Smoking PE Risk Factors: Negative for: Recent Travel/Surgery, Recenet Immobilization, Prior DVT or PE, Cancer, OCP + Smoking + >/=35 - Past Medical History (1) Depression Status: Chronic (2) GERD (gastroesophageal reflux disease) Status: Chronic Past Medical History - Allergies and Home Meds Allergies/Adverse Reactions: Allergies amoxicillin [Amoxicillin] Adverse Reaction (Verified 01/31/19 04:25) Nausea milk Adverse Reaction (Verified 01/31/19 04:25) Nausea NUTS Allergy (Uncoded 01/31/19 04:25) Anaphylaxis Primary Care Physician: Kenna Sanders MD [Primary Care Provider] - Surgical History: - - R knee/patella stabilization Lives: With Family Smoking Status: Never smoker Drugs: None Review of Systems General: Denies: Chills, Fever, Sweats Eyes: Denies: Visual changes - bilaterally, Diplopia ENT: Denies: Rhinorrhea, Sore throat Cardiovascular: Reports: Chest pain. Denies: Palpitations Respiratory: Denies: Dyspnea, Cough, Dyspnea on exertion Gastrointestinal: Denies: Abdominal pain, Nausea, Vomiting, Diarrhea, Melena, Hematochezia Genitourinary: Denies: Dysuria, Hematuria, Frequency Musculoskeletal: Denies: Back pain, Extremity Pain Skin: Denies: Rash, Wounds Neurological: Denies: Headache, Weakness, Numbness Physical Exam Vital Signs/Narrative: Vital Signs Temp Pulse Resp BP Pulse Ox 01/31/19 04:26 98.7 F 81 24 H 122/97 H 97 Inital Vital Signs reviewed: Yes General: Well nourished, Well developed, No Acute Distress Head: Normocephalic, Atraumatic Eyes: Perrl, EOMI ENT: Moist mucous membranes, No rhinorrhea Neck: Supple, Nontender, No JVD Cardiovascular: Regular rate, Regular rhythm, No murmurs, Normal S1, Normal S2. Negative for: Tachycardia Respiratory: No distress, CTA bilaterally, Chest nontender Abdomen: Soft, Nontender, Nondistended, Normal bowel sounds Back: Nontender, Normal Inspection Extremities: Nontender, No edema. Negative for: Calf Tenderness Skin: Normal color, No rash, No Trauma Neurological: Alert, Oriented x3, Cranial nerves II-XII grossly intact, Normal Strength, Normal Sensation Psychological: Normal affect, Normal Mood Diagnostic/Tx/Re-eval - Rhythm Strip Rhythm Strip: Sinus Rhythm Rate: 65 Ectopy: None - EKG Initial EKG Interpretation: Sinus Rhythm, No Acute Injury Pattern - Normal EKG Prior: Unchanged - Medical Decision Making EKG is normal. Her discomfort is the most although he gone after a GI cocktail, but she felt a little nauseated. She was given a Phenergan. On reevaluation she feels much better. Stable for discharge and outpatient follow-up for recur rent symptoms, and advised to continue her PPI. ED Disposition - Plan for ED Patient: Disposition: Home or Assisted Living Diagnosis: GERD (gastroesophageal reflux disease), Chest pain, non-cardiac Instructions: CHEST PAIN, NonCardiac, GERD (Adult) Referrals: Kenna Sanders MD [Primary Care Provider] - 3-5 Days if not improving
[2019-01-31] MEDS: Mag Hydrox/Al Hydrox/Simeth 30 ML UDC PO (05:08)
[2019-01-31] MEDS: proMETHazine 25 MG Tablet PO (05:47)
[2019-01-31 06:25] VITALS: BP 121/84; PULSE 66; RESP 21; O2SAT 97
== END 2019-01-31 06:29 | disposition home or self-care (01) ==
PROVIDERS: Emergency Provider Emergency Medicine; Family Provider Pediatrics; PCP Pediatrics
DX: R07.89 Other chest pain (principal); K21.9 Gastro-esophageal reflux disease without esophagitis; F32.9 Major depressive disorder, single episode, unspecified; Z79.899 Other long term (current) drug therapy
CPT/HCPCS: 93005; 99284

== ENCOUNTER → 2019-02-03 12:27 | Outpatient (CLI) | payer MEDICAID, SELFPAY ==
[2019-01-31 04:26] VITALS: BMI 40.5
[2019-02-03 14:17] LABS: Thyroid Stim Hormone (TSH) 0.95 uIU/mL (0.358-3.74)
[2019-02-03 14:20] LABS: Vitamin D,25 Hydroxy 11.8 ng/mL (29.95-100.01)
== END ==
PROVIDERS: Family Provider Pediatrics; PCP Pediatrics; Referring Provider Psychiatry & Neurology Psychiatry; Visit Provider Psychiatry & Neurology Psychiatry
DX: E55.9 Vitamin D deficiency, unspecified (principal)
CPT/HCPCS: 36415; 82306; 84443

== ENCOUNTER 2019-02-03 12:46 | Emergency (ER) | payer MEDICAID, SELFPAY ==
[2019-02-03 12:47] VITALS: BP 146/80; PULSE 86; RESP 16; TEMP 36.1; O2SAT 95; BMI 38.8
[2019-02-03 13:01] VITALS: BP 129/88; PULSE 73; RESP 14; O2SAT 98
--- NOTE | 2019-02-03 13:37 | ED.VISSUMM ---
- ER Visit Summary Date of Service: 02/03/19 Chief Complaint: Headaches History of Present Illness: The patient is a 18 F past medical history depression on Zoloft. Patient been having intermittent headaches for the last week. She describes it as a pulling sensation. Says they come on last 3 to 3 hours then resolve on their own. Then return. Nothing specifically causes or exacerbates the headaches. She denies any head trauma. No sinus congestion. No fever. Mom is present in the room. There is no family history of intracranial bleeds or aneurysms. Mom states she has migraines herself but that that is from a posttraumatic event. Mom thinks that the patient is stressed due to arguing with her boyfriend and thinks this was causing the headaches and that she stays up all night on her cell phone and does not get enough sleep. Mom and daughter were arguing at times while was doing my exam and history. Physical Examination: Well-appearing young female. No acute distress. Vital signs stable afebrile. HEENT exam unremarkable. Pupils are reactive light. No facial droop. No frontal or mastoid sinus tenderness. Neck nontender no meningismus. No signs of trauma to her face or scalp. Lungs clear to auscultation bilaterally. Heart regular rhythm no murmur. Abdomen soft nontender normal bowel sounds no peritoneal signs. She is moving all 4 extremities. There are neurovascular intact. She is equal symmetrical 5-5 toll bridge attendant strength. Dorsi plantarflexion intact. She has a knee brace on her right knee. Neurologically she is awake alert with no focal motor or sensory deficits. Normal speech. No facial droop. No paresthesias. 5 out of toll bridge attendant strength. Dorsi plantar flexion intact. Fingertip to nose within normal limits. NIH is 0. Test Results: None Emergency Department Course and Treatment: Patient's headaches are more likely tension headaches. She will be treated with Motrin here and discharged. Her exam is normal. I do not think she needs any imaging. Mom and patient are comfortable with that plan. Treatment Plan: Tylenol and/or Motrin for pain. Get more sleep. Decrease her cell phone use. Follow-up with your doctor if not improving. Disposition: Discharge Impression: Acute cephalgia This note was generated with [employer] dictation software. It may contain incorrect words, spelling, and punctuation that were not noted in review of the chart prior to signing ED Disposition - Plan for ED Patient: Referrals: Zeny Garcia MD [Primary Care Provider] -
--- NOTE | 2019-02-03 13:40 | ED.DEP ---
ED Disposition - Plan for ED Patient: Disposition: Home or Assisted Living Instructions: HEADACHE, Tension, HEADACHE, Unspecified Referrals: Zeny Garcia MD [Primary Care Provider] - 1 Week if not improving Additional Instructions: Tylenol and/or Motrin for pain. Follow-up with your doctor if not improving. Decrease your cell phone use. Increase your sleep to at least 6 to 8 hours a night.
[2019-02-03] MEDS: Ibuprofen 600 MG Tablet PO (13:49)
[2019-02-03 13:51] VITALS: BP 116/76; PULSE 67; RESP 15; O2SAT 99
== END 2019-02-03 13:55 | disposition home or self-care (01) ==
PROVIDERS: Emergency Provider Emergency Medicine; Family Provider Pediatrics; PCP Pediatrics
DX: R51 Headache (principal); F32.9 Major depressive disorder, single episode, unspecified
CPT/HCPCS: 36415; 82306; 84443; 99282

== ENCOUNTER 2019-02-05 18:06 | Emergency (ER) | payer MEDICAID, SELFPAY ==
[2019-02-05 18:07] VITALS: BP 137/106; PULSE 103; RESP 24; TEMP 36.8; O2SAT 95; BMI 37.5
--- NOTE | 2019-02-05 18:13 | RAD_ITS ---
STUDY: X-RAY CHEST REASON FOR EXAM: Female, 18 years old. Chest pain TECHNIQUE: Frontal view of the chest COMPARISON: X-ray chest November 02, 2018 FINDINGS: The lungs are clear. There are no pleural effusions. There is no pneumothorax. The heart is normal in size. The visualized osseous structures are within normal limits. RAD/Chest 1 View (Portable) IMPRESSION: No acute thoracic pathology. Electronically Signed: Thierno Sellers, at 18:41 EDT Tel , Service support ,
--- NOTE | 2019-02-05 18:13 | EKG12_ITS ---
Test Reason : TACHY Blood Pressure : / mmHG Vent. Rate : 091 BPM Atrial Rate : 091 BPM P-R Int : 120 ms QRS Dur : 082 ms QT Int : 354 ms P-R-T Axes : 037 028 079 degrees QTc Int : 435 ms Normal sinus rhythm Nonspecific ST and T wave abnormality Abnormal ECG Confirmed by OLIVER ANGLIN, ANTHONY ([id number]), city editor KELLY ALLEN ([id number]) on 02/09/2019 1:10:07 PM Referred By: Ciera Harris Confirmed By:RIVERA BOYD MD
[2019-02-05 18:15] VITALS: O2SAT 94
[2019-02-05] MEDS: Aspirin 81 MG TAB.CHEW 324 MG PO (18:20)
[2019-02-05] MEDS: 0.9% Normal Saline 1,000 ML 1000 ML IV (18:20)
--- NOTE | 2019-02-05 18:20 | ED.VIS.GEN ---
History of Present Illness Chief Complaint: Chest Pain Informant: Patient Onset: Today Context: Sudden Onset Timing: Continuous Current Severity: Moderate Maximum Severity: Moderate Narrative: Patient presents to the emergency department with sudden onset chest pain with heart racing. Patient was in her normal state of health. She states that she felt like something popped in her chest. Shortly thereafter, she was having pain in her left side of her chest, she could not breathe. She states she is never had symptoms like this before. The patient does have a history of GERD and anxiety. She denies any recent change in her medications. She denies any fevers or chills. She has no history of pulmonary embolus. She denies any recent travel. In route to the facility, the patient was tachycardic. Prehospital EKG demonstrated supraventricular tachycardia. The patient spontaneously converted prior to arrival. Prior similar symptoms: No Recent Illness/Hospitalization: No Past Medical History - Allergies and Home Meds Allergies/Adverse Reactions: Allergies amoxicillin [Amoxicillin] Adverse Reaction (Verified 02/05/19 18:11) Nausea milk Adverse Reaction (Verified 02/05/19 18:11) Nausea NUTS Allergy (Uncoded 02/05/19 18:11) Anaphylaxis Primary Care Physician: Marybeth Gauthier MD [STAFF PHYSICIAN] - Prior records reviewed: Yes Past Medical History: - - GERD, depression Surgical History: - - R knee/patella stabilization Smoking Status: Never smoker Review of Systems General: Denies: Chills, Fever, Sweats Eyes: Denies: Visual changes - bilaterally, Diplopia ENT: Denies: Rhinorrhea, Sore throat Cardiovascular: Reports: Chest pain, Palpitations, Heart racing Respiratory: Reports: Dyspnea Gastrointestinal: Denies: Abdominal pain, Nausea, Vomiting, Diarrhea, Melena, Hematochezia Genitourinary: Denies: Dysuria, Hematuria, Frequency Musculoskeletal: Denies: Back pain, Extremity Pain Skin: Denies: Rash, Wounds Neurological: Denies: Headache, Weakness, Numbness Physical Exam Vital Signs/Narrative: Vital Signs Temp Pulse Resp BP Pulse Ox 02/05/19 18:15 94 02/05/19 18:07 98.3 F 103 H 24 H 137/106 H 95 Inital Vital Signs reviewed: Yes General: Well nourished, Well developed, No Acute Distress Head: Normocephalic, Atraumatic Eyes: Perrl, EOMI ENT: Moist mucous membranes, No rhinorrhea Neck: Supple, Nontender Cardiovascular: Regular rate, Regular rhythm, No murmurs Respiratory: No distress, CTA bilaterally, Chest nontender Abdomen: Soft, Nontender, Nondistended, Normal bowel sounds Back: Nontender, Normal Inspection Extremities: Nontender, No edema Skin: Normal color, No rash Neurological: Alert, Oriented x3, Cranial nerves II-XII grossly intact, Normal Strength, Normal Sensation Psychological: Normal affect, Normal Mood Diagnostic/Tx/Re-eval Chest X-Ray - ED: 2 View, Read by ED Physician, Normal, Heart, Lungs Clinical Impression(s) from Imaging Studies Chest X-Ray 02/05/19 18:13 IMPRESSION: No acute thoracic pathology. Electronically Signed: Thierno Sellers, at 18:41 EDT Tel , Service support , Abnormal Lab Results 02/05/19 02/05/19 02/05/19 18:15 18:15 18:15 WBC 6.3 RBC 5.04 Hgb 13.0 Hct 40.6 MCV 80.6 L MCH 25.8 L MCHC 32.0 RDW Std Deviation 38.3 RDW Coeff of Zulma 13.3 Plt Count 318 MPV 9.3 Immature Gran % (Auto) 0.200 Neut % (Auto) 58.7 Lymph % (Auto) 29.6 [place] % (Auto) 8.7 Eos % (Auto) 2.2 Baso % (Auto) 0.6 Absolute Neuts (auto) 3.7 Absolute Lymphs (auto) 1.87 Nucleated RBC % 0 D-Dimer Quant (PE/DVT) < 0.27 L Sodium 139 Potassium 3.2 L Chloride 111 H Carbon Dioxide 20.0 L Anion Gap 8 BUN 7 Creatinine 0.87 Estim Creat Clear Calc 138.25 Est GFR (MDRD) Af Amer 107 Est GFR (MDRD) Non-Af 89 BUN/Creatinine Ratio 8.0 L Glucose 98 Calcium 9.8 Troponin I < 0.015 - Rhythm Strip Rhythm Strip: Sinus Rhythm Rate: 98 Ectopy: None - EKG Initial EKG Interpretation: Sinus Rhythm, No Acute Injury Pattern Prior: Unchanged - Medical Decision Making Patient presents with chest pain. She was in SVT prior to arrival but spontaneously converted. She states that she has been having feeling increased stress recently. She has no history of SVT. Metabolic work-up was pursued. She was found to be mildly hypokalemic and this was replaced. Her d-dimer was negative. Her EKG shows no shortened OR interval or other dysrhythmia. At this point, given that she is safe for outpatient therapy. She will be kept on potassium replacement and given outpatient cardiology follow-up as needed. She is comfortable with this plan of care. Impression 1. SVT-resolved 2. Chest pain-noncardiac ED Disposition - Plan for ED Patient: Disposition: Home or Assisted Living Instructions: CHEST PAIN, NonCardiac Prescriptions: Potassium Chloride [Klor-Con] 20 meq PO DAILY #7 packet Prescription Printed Referrals: Marybeth Gauthier MD [STAFF PHYSICIAN] -
[2019-02-05 18:30] LABS: Absolute Lymphocyte Count 1.87 X10^3/uL (0.83-4.51); Absolute Neutrophil Count 3.7 X10^3/uL (2.0-7.7); Basophil# 0.04 X10^3/uL; Basophil% 0.6 % (0-1); Eosinophil# 0.14 X10^3/uL; Eosinophils% 2.2 % (0-5); Hematocrit 40.6 % (37-47); Lymphocyte # 1.87 X10^3/ul (4.0); Lymphocyte % 29.6 % (19-41); Mean Corpuscular Hgb 25.8 pg (27.0-32.0); Mean Corpuscular Volume 80.6 fL (81-99); Mean Platelet Vol. 9.3 fl (6.2-12.0); Monocyte# 0.55 X10^3/uL; Monocyte% 8.7 % (0-10); NRBC Flagged by Analyzer 0 % (0-5); Neutrophil % 58.7 % (47-70); Platelet Count 318 K/mm3 (150-450); RBC Distribution Width CV 13.3 % (11.6-14.6); RBC Distribution Width SD 38.3 fl (35.1-43.9); Red Blood Count 5.04 M/mm3 (4.2-5.4); White Blood Count 6.3 K/mm3 (4.4-11.0)
[2019-02-05 18:45] LABS: Anion Gap 8 (5-15); BUN 7 mg/dL (7-18); Calcium,Total 9.8 mg/dL (8.5-10.1); Chloride 111 mmol/L (98-107); Creatinine, Serum 0.87 mg/dL (0.55-1.02); EST Glomerular Filtration Rate 89 mL/min (>60); Est Glom Filt Rate - Afr Amer 107 mL/min (>60); Estimated Creatinine Clearance 138.25 ml/min; Glucose 98 mg/dL (74-106); Potassium 3.2 mmol/L (3.5-5.1); Sodium Level 139 mmol/L (136-145)
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
--- NOTE | 2019-02-05 19:00 | ED.RN ---
THIS RN NOTIFIED DR. LATHAM OF HTE CONVERSATION BETWEEN THE PT'S MOTHER AND I, DR. LATHAM ASKED IF WE COULD HAVE SOCIAL WORK TALK WITH PT. SOCIAL WORK MADE AWARE.
[2019-02-05 19:18] LABS: D-Dimer Quantitative (DVT/PE) < 0.27 FEU/ug/m (0.27-0.49)
[2019-02-05 19:36] VITALS: BP 123/82; PULSE 65; RESP 17; O2SAT 100
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
[2019-02-05] MEDS: proMETHazine 25 MG/ML Syringe 12.5 MG IV (19:44)
[2019-02-05 20:07] VITALS: BP 126/75; PULSE 70; RESP 20; O2SAT 97
== END 2019-02-05 20:12 | disposition home or self-care (01) ==
LOC: ED 18:31
PROVIDERS: Emergency Provider Emergency Medicine; Family Provider Pediatrics; PCP Pediatrics
DX: R07.9 Chest pain, unspecified (principal); I47.1 Supraventricular tachycardia; E87.6 Hypokalemia; F41.9 Anxiety disorder, unspecified; K21.9 Gastro-esophageal reflux disease without esophagitis; Z79.899 Other long term (current) drug therapy
CPT/HCPCS: 71045; 80048; 84484; 85025; 85379; 93005; 96361; 96374; 99285; J7030; A4216

== ENCOUNTER 2019-02-12 04:51 | Emergency (ER) | payer MEDICAID, SELFPAY ==
[2019-02-12 04:51] VITALS: BP 118/86; PULSE 76; RESP 18; TEMP 36.8; O2SAT 98; BMI 39.9
--- NOTE | 2019-02-12 05:19 | EKG12_ITS ---
Test Reason : ANXIETY Blood Pressure : / mmHG Vent. Rate : 054 BPM Atrial Rate : 054 BPM P-R Int : 118 ms QRS Dur : 082 ms QT Int : 394 ms P-R-T Axes : 009 006 011 degrees QTc Int : 373 ms Sinus bradycardia Moderate voltage criteria for LVH, may be normal variant Borderline ECG Confirmed by OLIVER ANGLIN, ANTHONY ([id number]), makeup editor MACK LEDBETTER ([id number]) on 02/13/2019 8:16:03 AM Referred By: Ciera Harris Confirmed By:RIVERA BOYD MD
[2019-02-12] MEDS: Mag Hydrox/Al Hydrox/Simeth 30 ML UDC PO (05:24)
--- NOTE | 2019-02-12 05:29 | ED.VISSUMM ---
- ER Visit Summary Date of Service: 02/12/19 Chief Complaint: Chest pain History of Present Illness: The patient is a 18 F who states that she is having increased anxiety due to chest pain and shortness of breath. Patient has been seen multiple times this month for similar complaints. She states that she has scheduled appointment with her family doctor because every time I call they are booked. I explained to her that she needs to make an appointment and can expect same-day appointments every time she calls. There is nothing new about this pain is the same pain she has been having. She describes it is midsternal. She states that sometimes it is squeezing. This pain began approximately 0100 hrs. Oddly enough when the patient was in route to the hospital her mother called and spoke with nursing. Reportedly stating that the patient is fine. She states the patient has been up all night on the phone and she has been told numerous times to go to bed and she has not. Physical Examination: Afebrile vital signs stable Gen: Well-nourished well-developed Head: Normocephalic atraumatic Eyes: Perrl EOMI ENT: TMs clear no rhinorrhea moist mucous membranes Neck: Supple no lymphadenopathy no JVD nontender CVS: Regular rate rhythm no murmurs normal S1-S2 Respiratory: No distress clear to auscultation bilaterally chest nontender Abdomen: Soft nontender nondistended normal bowel sounds no masses Back: Nontender Extremity: Nontender no edema Skin: Normal color no rash Neuro: alert orientated ?3 CN II-XII intact normal strength sensation Psych: Restricted and flat. No suicidal homicidal ideation Test Results: EKG shows a sinus bradycardia at a rate of 54 no concerning features of ACS. Emergency Department Course and Treatment: Patient recently had EKG blood work including d-dimer troponin that were negative. I think at the root of the patient's symptoms we will find she has GERD as well as depression/anxiety. She does seek counseling and I recommend she follow-up there as well as make an appointment with her doctor to follow-up on all these emergency department visits. Impression: 1. Chest pain 2. Depression This note was generated with [employer] software. It may contain incorrect words, spelling, and punctuation that were not noted in review of the chart prior to signing ED Disposition - Plan for ED Patient: Disposition: Home or Assisted Living Instructions: Depression, CHEST PAIN, NonCardiac Referrals: Zeny Garcia MD [Primary Care Provider] - As soon as possible Additional Instructions: You need to call and make an appointment with your family doctor. This will not be a same-day appointment. You need to call and discuss with your counselors.
[2019-02-12 05:58] VITALS: BP 110/60; PULSE 75; RESP 18; O2SAT 96
== END 2019-02-12 05:59 | disposition home or self-care (01) ==
PROVIDERS: Emergency Provider Emergency Medicine; Family Provider Pediatrics; PCP Pediatrics
DX: R07.9 Chest pain, unspecified (principal); F32.9 Major depressive disorder, single episode, unspecified; E66.9 Obesity, unspecified; K21.9 Gastro-esophageal reflux disease without esophagitis; F41.9 Anxiety disorder, unspecified; Z79.899 Other long term (current) drug therapy
CPT/HCPCS: 93005; 99284

== ENCOUNTER 2019-02-24 09:00 | Outpatient (RCR) | payer MEDICAID, SELFPAY ==
--- NOTE | 2019-02-24 09:10 | BH.SGPN.GN ---
Behaviors/Verbalizations/Mental Status: [] Eye contact is good. Motor activity is appropriate. Appearance is disheveled. Speech is Appropriate. Mood is anxious. Affect is congruent. Thoughts are linear and logical. No evidence of psychosis. Reviewed daily check in sheet and no reports of suicidal ideations or intent. Client Response/Progress/Benefit: [] Pt was an active participant in group discussion. Emotion for today is anxious. Daily symptom tracker indicates 4/5 for anxiety and 5/5 for panic. During check-in she did not discuss her anxiety much despite her high scores. Reports distress related to her mother being ill this weekend, however notes that she is hopeful and optimistic about being off of restrictions for her knee. Shared with the group more today about her past and how it impacts her current emotions. Overall continues to report anxiety on daily basis. Not attempting to utilize skills. Progress noted by pt. Benefited from group support, encouragement, and feedback. Will continue in IOP to prevent decompensation, maintain safety, and provided support. Narrative Note: []
--- NOTE | 2019-02-24 10:21 | BH.SGPN.GN ---
Behaviors/Verbalizations/Mental Status: [Client alert and oriented, casually dressed and grooming fair. Eye contact fair to good. Motor activity appropriate. Speech within normal limits. Affect congruent, mood anxious and dysthymic. Thoughts linear, logical, no signs of hallucinations or delusions.] Client Response/Progress/Benefit: [Pt receptive to session, provided some input though remained mostly an active listener throughout discussion on stress. Able to brainstorm with the group positive and negative aspects of stress on physical and mental health. Pt expressed that stress can result in ?blowing up on others? or fighting with supports. She participated in identifying current stressors impacting mental health. Pt's current stressors include: myself, being an adult and having to find my own place and pay bills, as well as family relationships which cause her tension. Pt indicated ?myself? included negative and distorted thought patterns, lack of self-confidence, and isolative/avoidant behaviors. Appeared to benefit from gaining awareness of own current stressors and learning about the impact stress has on overall wellbeing. Progress noted in improved ability to identify impact she has over management of current internal stressors and determining the impact they have on her mental health and wellbeing. Recommended continued IOP tx to improve emotional regulation, improve utilization of healthy coping and boundary setting, independence, and prevent decompensation.] Narrative Note: []
--- NOTE | 2019-02-24 11:17 | BH.SGPN.GN ---
Behaviors/Verbalizations/Mental Status: []Client alert and oriented, disheveled in appearance. Eye contact good. Motor activity appropriate. Speech within normal limits. Affect congruent, mood euthymic and anxious. Thoughts linear, logical, no signs of hallucinations or delusions. Client Response/Progress/Benefit: []Pt engaged in session as evidenced by pt listening attentively to others and providing input throughout session. Pt worked with the group to complete the challenge activity and with elicitation able to identify barriers encountered that may also impact managing stress in daily life. Pt engaged in discussion about the 4 A's of managing stress. Pt identified she will focus on accepting the stressors she cannot avoid, alter, or adapt. Pt stated she wants to accept that she has anxiety and not try to fight it. Pt seemed to benefit from increased awareness of the impact of stress on mental health and increasing repertoire of stress management strategies. Pt to continue in IOP to prevent decompensation, continue use of healthy coping skills and improve emotional regulation. Narrative Note: []
--- NOTE | 2019-02-24 14:24 | BH.MDN ---
Multi-Disciplinary Note - Note 30-min Individual Time Started:: 12:33 Date: 02/24/19 Purpose of session/treatment goals addressed:: Purpose of this session was to assess pt current symptoms, stressors, and treatment goal progress. Another purpose was to follow-up with pt for further assessment regarding concerns expressed by pt mother concerning increased anxiety and paranoia. Eye Contact:: Good Motor Activity:: Appropriate Appearance:: Casual, Other - grooming and hygiene appears fair Speech:: Appropriate Mood:: Anxious, Dysthymic Affect:: Congruent Thoughts:: Linear, Logical, No evidence of hallucinations/delusions noted Staff Interventions:: Therapist used open-ended questions to explore client's current stressors, symptoms, and progress. Therapist applied motivational interviewing techniques to increase client awareness of current barriers impacting ability to manage anxiety and problem-solve strategies for overcoming identified barriers. Therapist and client discussed client?s goal from last week to apply calming strategies when feeling anxious as well as maintaining healthy boundaries. Gently challenged pt on use of justification and distorted thinking patterns. Therapist assisted client in setting goals that will help client get closer to the progress she wants to make. Client Response:: Pt receptive of session and open to discussing current thoughts and behaviors impacting mental health treatment progress. Pt reports feeling increased anxiety over the past week regarding her physical health and indicated she had been to the ER last week due to fears that something is wrong with her heart. Pt discussed knowing that there is no evidence to support these fears as all medical tests came back negative. She was able to identify that this was anxiety related and noted that she has had similar incidants in which she felt subtle pain in her body and something was pysically wrong with her when there wasn't. Pt reflected that she often forgets to practice healthy coping skills she is learning in the program during those times. Indicates however that she has been working to use the skills of deep breathing and grounding via 5 senses exercise when at baseline or experiencing lower levels of anxiety. Pt and therapist discussed importance of implementing these skills as well as thought challenging techniques to prevent distortions such as what if something is wrong with me from escalating to point of crisis. Pt notes willingness to practice using affirmations such as you're okay, remember this is just anxiety. Pt denies experiencing anxiety about anything outside of her physical health concerns. Therapist discussed with pt concerns her mother expressed regarding pt exhibiting signs of increased anxiety and paranoia. Pt became slightly agitated and indicated that her mother was referring to pt reports that people were attempting to break into the home. Pt shared that this had in fact occurred and that she had contacted the police as well as spoke with several neighbors who have experienced similar issues. Pt denies any hx of delusions or hallucinations, denies currently experiencing any symptoms associated with auditory or visual halluciantions. Reports some issues in trusting others as pt fears being let down or hurt. Shared she and her mother continue to have issues with communicating and often end up arguing as a result. Per pt report, she and her mother have different expectations as pt would like her mother to take on a more active small animal caretaker role whereas pt's mother continues to express a desire for pt to begin living more independently. Pt and therapist discussed impact of pt current expectations on mental health if her mother is unwilling to meet those expectations. Remainder of session spent identifying strategies for improving her ability to cope with current circumstances while she works on identifying alternative housing options. Pt [facility] and look into their housing options, initial appointment scheduled for 03/12 @ 8:30am. Reports wanting to limit time spent in the home in order to reduce isolative behaviors and prevent unneccessary stress or conflict. Although pt able to identify benefits of limiting contact, she continues to struggle with actively following through and at times appears to seek out her mother for reassurance and support. Pt expressed plans to sit outside and write or contact a neighborhood friend to go for a walk in order to continue to work towards this goal. Risks/Concerns:: Pt mother has expressed concerns regarding paranoia and increased SI w/out plan or intent. Upon meeting with pt and further assessing, pt denies any active or hx of delusions of hallucinations. Denies experiencing paranoid thoughts and reports incident in question occurred, see above for detail. Pt denies active SI, plan, or intent at this time. Denies HI. Reports ability to maintain safety, has protective factors, and is future oriented. Progress Toward Goals/Plan:: Some regression noted. Pt expressed increased sx of anxiety, specifically related to intrusive thoughts about her physical health and fears that there is someting physically wrong despite rationally knowing that there is no evidence for such. Pt continues to report application of coping skills in times of calm or when experiencing slight anxiety; however, struggles to utilize as anxiety increases or when experiencing distorted thought patterns. Pt appears to continue to have difficulties in identifying and challenging thought distortions. Continues to report mother and finances as primary stressors, though struggles with setting and maintaining consistent and healthy boundaries, following through with small goals identified in session, and isolation. She often struggles with setting and maintaining healthy boundaries which continues to impede treatment goal progress and impact pt self-confidence levels. She is recommended continued IOP tx to continue to promote healthy change behaviors, increase consistent application of anxiety management skills, increase emotion regulation and boundary setting skills, as well as prevent decompensation. Time Stopped:: 13:09
--- NOTE | 2019-02-25 09:00 | BH.SGPN.GN ---
Behaviors/Verbalizations/Mental Status: [] Eye contact is good. Motor activity is appropriate. Appearance is casual. Speech is Appropriate. Mood is depressed. Affect is flat. Thoughts are linear and logical. No evidence of psychosis. Reviewed daily check in sheet and no reports of suicidal ideations or intent. Client Response/Progress/Benefit: [] Pt spoke when prompted. Emotion for today is anxious however reports feeling level-headed. She is looking forward to the [facility] fair and discussed the benefits of the fair on her MH. Less focused on her anxiety and somatic symptoms of late, however she cannot identify any change in thinking or skills. Participated in group discussion on topic of what is normal? and expectations about our mental health. Benefited from group support, encouragement, and feedback. Will continue in IOP to maintain safety, stabilize mood, and increase coping strategies. Narrative Note: []
--- NOTE | 2019-02-25 10:21 | BH.SGPN.GN ---
Behaviors/Verbalizations/Mental Status: [Client alert and oriented, casually dressed and appropriately groomed. Eye contact good. Motor activity appropriate. Speech within normal limits. Affect congruent, mood euthymic. Thoughts linear, logical, no signs of hallucinations or delusions. ] Client Response/Progress/Benefit: [Client responded well to session, able to actively contribute to discussion and provide examples throughout. Client indicated connecting with the topic of cognitive distortions and shared connecting with input provided by fellow participants regarding ways in which our thoughts can impact mental health. Client reported connecting with the potential impacts unmanaged negative automatic thoughts can have on mental health and functioning and provided a personal example of isolating when she experiences negative thoughts which in turn reinforces her depression. Client did well to work with the group on defining the various types of cognitive distortions and ways they have impacted mental health in the past. Client reported connecting with distortions of jumping to conclusions and mental filter. Client reported that she struggles with avoidance rather than addressing and challenging personal distortions. Appeared to benefit from increasing awareness of cognitive distortions and how they can impact emotions and behaviors. Client continues struggle in active and consistent application of interpersonal skills outside of distraction. Per client report her ongoing tense relationship with mother continues to reinforce distorted thoughts about self. Client to continue IOP to decrease anxiety, continue to promote healthy change behaviors and application of healthy boundaries, as well as prevent decompensation. ] Narrative Note: []
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
--- NOTE | 2019-02-25 15:39 | BH.MTP_ITS ---
Treatment Plan Review Date of Admission:: 01/27/19 Date of Treatment Plan Review:: 02/25/19 Admitting Diagnoses:: Major depressive disorder recurrent severe without psychosis, panic attacks without Agora phobia. Current Diagnoses:: Major depressive disorder recurrent severe without psychosis, panic attacks without Agora phobia. Patient's Response to Treatment:: Since beginning the IOP tx program, Pt has displayed variable progress in overall progress. Pt has experienced inconsistent levels of engagement in the treatment process AEB inconsistent attendance and at times appearing distracted during group. With redirection, however, pt able to engage in group discussion and activities. At times she can make connections with material presented. Pt has remained mostly consistent with psychiatric medication compliance. In individual sessions, pt reports understanding of materials discussed and is able to identify warning signs. Completed DSM-5 cross cutting scales which indicates a 15% reduction in symptoms since starting the program. Notes 17% reduction in depression scores and 13% reduction in anxiety scores. Status of Current Problems and Symptoms: Pt reported that it felt motivating to see areas of improvement on objective tests. Pt has made some progress in treatment which is evidenced by DSM5 cross-cutting scales indication of reduced symptoms at 4 weeks. Pt has done well to begin incorporating affirmational statements in her daily life and reports some decrease in negative self-talk as well; however, could continue to benefit from working on this area. Additionally, pt has seen a reduction in social anxiety, as well as severity and duration of anxious thinking. She indicates increased ability to reach out to new supports as a result and has noted a decrease in isolative behaviors as a result. Pt continues to struggle with setting and accepting others boundaries and continues to experience interpersonal conflict as a result. Additionally, She has displayed consistent difficulties in actively utilizing self-care practices which could be contributing to stress levels and ongoing anxiety. Problem #1 Problem Name:: Depression Status of Goals:: Partially complete. Pt is making progress on this objective. Notes 15 % reduction in depression sx AEB DSM-5 Cross-cutting analysis QUESTIONAIRE. Obj 1- Pt is able to actively identify negative self-talk messages however continues to report struggles to replace these thoughts consistently and w/o guidance. Often struggles with negative self-talk following interpersonal conflict with her mother or grandmother. Obj 2- Partially complete. Pt is able to identify healthy coping strategies when provided with assistance, however, struggle to identify and apply calming skills in the moment. Often reports lack of motivation as primary barrier to skills application Team Recommendations:: Client encouraged to continue working on this treatment goal to reinforce healthy coping skills and continue to further decrease symptoms of depression. Client and therapist currently working on thought challenging and practicing calming skills. Will continue IOP tx to maintain gains and continue to decrease depression related sx. Problem #2 Problem Name:: Anxiety Status of Goals:: Partially complete. Pt continues to make significant strides in reduction of anxiety sx. Notes a 13% reduction in anxiety scores on DSM 5- Cross-Cutting analysis QUESTIONAIRE. Obj1- Pt is able to identify a variety of potential warning signs for anxiety and PTSD related sx; however, indicates limited awareness of anxiety triggers in the moment which impacts ability to apply coping mechanisms prior to panic escalation. Pt continues to display difficulties in independently applying coping skills and continues to catastrophize, at times resulting in pt seeking reassurance of medical related anxiety from the ED. Pt still needs some work in this area. Team Recommendations:: Client encouraged to continue working on this treatment goal to reinforce healthy coping skills and continue to further decrease sy mptoms of anxiety. Client and therapist currently working on thought challenging and practicing calming skills. Will continue IOP tx to maintain gains and continue to decrease anxiety related sx.
--- NOTE | 2019-02-27 09:00 | BH.SGPN.GN ---
Behaviors/Verbalizations/Mental Status: [] Eye contact is good. Motor activity is appropriate. Appearance is casual. Speech is Appropriate. Mood is euthymic. Affect is full. Thoughts are linear and logical. No evidence of psychosis. Reviewed daily check in sheet and no reports of suicidal ideations or intent. Client Response/Progress/Benefit: [] Pt participated at times during the group discussion. Daily symptoms tracker indicates 4/5 for anxiety and 5/5 for panic attacks. During check-in she did not discuss panic attacks however reported increased anxiety. Reports feeling overwhelmed and talked with group regarding struggles. Practicing some self-care and spending time with family. Progress noted. Benefited from group support, encouragement, and feedback. Will continue in IOP to prevent decompensation, increase coping strategies, and stabilize mood. Narrative Note: []
--- NOTE | 2019-02-27 10:16 | BH.SGPN.GN ---
Behaviors/Verbalizations/Mental Status: [Client alert and oriented, casually dressed and fair grooming. Eye contact fair to good. Motor activity appropriate. Speech within normal limits. Affect congruent, mood dysthymic and anxious. Thoughts linear, logical, no signs of hallucinations or delusions] Client Response/Progress/Benefit: [Pt engaged in group remained mostly passive during discussion, willing to complete worksheet activity. Pt connected with the group topic of Crisis and did well to work together with group to define crisis. Identified an example of potential crisis as experiencing relationship issues or parent?s divorce. Connected with discussion on how small setbacks can develop into a crisis if coping skills are unhealthy. Pt shared that her common crisis response is isolation which has resulted in escalating the crisis as she was not able to get the support needed to de-escalate and cope with crisis. Group identified warning signs for crisis which included; increased sleep, irritability, decreased appetite, and suicidal thoughts. Pt completed the personal warning signs worksheet and identified crisis warning signs to include; increased sleep, decreased personal hygiene, and avoidance. Benefited from group by increasing awareness of crisis and personal warning signs. Progress continues to be limited as pt continues to struggle with over reliance on external supports rather than utilizing internal coping skills as well. Will continue IOP to promote independent skills use, improve distress tolerance and emotion regulation skills, as well as prevent decompensation.?] Narrative Note: []
--- NOTE | 2019-02-27 11:15 | BH.SGPN.GN ---
Behaviors/Verbalizations/Mental Status: []]Client alert and oriented, casually dressed and groomed. Eye contact good. Motor activity appropriate. Speech within normal limits. Affect constricted, mood dysthymic. Thoughts linear, logical, no signs of hallucinations or delusions. Client Response/Progress/Benefit: []Client responded well to session as evidenced by client listening attentively to others and sharing when prompted. Client identified her warning signs for crisis and gained further awareness of her earliest warning signs. Client recognized that awareness of these warning signs can prevent further crisis and help client utilize healthy coping skills to break the cycle. Client created a crisis action plan to help client better manage earliest warning signs for crisis of isolating/avoiding others, not taking care of herself, and difficulty concentrating. Client?s plan included coping skills such as reaching out to aunt for support, challenging negative thoughts, and showering every morning to start her day off positively. Client appeared to benefit from creating a crisis action plan and increasing her self-awareness. Client has made significant treatment progress with decreased depressive symptoms, improved conflict resolution skills, and improved daily functioning. Client is to discharge from [facility] today. Narrative Note: []
--- NOTE | 2019-03-02 00:37 | BH.MDN ---
Multi-Disciplinary Note - Note 45-min Individual Time Started:: 09:15 Date: 02/04/19 Purpose of session/treatment goals addressed:: Purpose of session was to assess current sx, stressors, and tx goal progress. Another purpose was to aid pt in processing unexpected end of relationship and identifying strategies for coping with this new stressor. Eye Contact:: Good Motor Activity:: Appropriate Appearance:: Disheveled, Casual Mood:: Anxious, Depressed Affect:: Congruent Thoughts:: Linear, Logical, No evidence of hallucinations/delusions noted Staff Interventions:: Therapist asked open ended and furthering questions to elicit additional information regarding pt current thoughts on symptoms, stressors, and treatment goal progress. Therapist provided support by using active listening and validating emotions to pt while discussing unexpected stressors. Utilized CBT strategies to promote ongoing identification of distortions and use of thought challenging behaviors. Applied MS techniques to establish a healthy breakup coping plan, as well as promote change behaviors. Client Response:: Client receptive of session, engaged throughout. Pt reported she was informed by her fianc? last evening that he wanted to end the relationship. Indicated that he had expressed concern regarding his parent?s disapproval and felt he would not be able to maintain a relationship with someone his family disapproves of. Pt shared knowing that the relationship might not be sustainable as they had not seen one another in weeks, but the finality of it was unexpected. Expressed increased negative thoughts, depression, and lower self-esteem as a result. Pt discussed feeling as though she were not ?good enough?. Open to working with this therapist to challenge distorted thoughts associated with end of relationship and her own self-worth. Pt notes ongoing difficulties in doing so and often struggles to apply thought challenging and reframing outside tx environment as she feels unable to see the positives on those occasions. Worked with therapist to crease a ?Breakup Survival Plan? which included heathy coping skills, affirmations, things to avoid, and supports to reach out to in order to best support herself while healing from the break-up. Reports plans to reach out to a friend via skype as well as try spending some time drawing tonight. Risks/Concerns:: Pt denies suicidal thoughts, plan or intention to date, 02/04/19. Progress Toward Goals/Plan:: Progress limited as pt continues to struggle with application of healthy skills outside of tx environment. Reports increased anxiety and depression due to recent end in her current engagement, though did well to identify coping skills and strategies for improving ability to cope with break-up. Continues to report some difficulties in setting boundaries with herself and ends up relying primarily on supports rather then internal skills as a result. Plan is to continue IOP tx to promote application of healthy skills identified and stabilize mood, as well as reduce anxiety and prevent decompensation. Time Stopped:: 09:58
--- NOTE | 2019-03-02 09:02 | BH.SGPN.GN ---
Behaviors/Verbalizations/Mental Status: [Eye contact is good. Motor activity is appropriate. Appearance is casual and grooming appropriate. Speech is WNL. Mood is dysthymic, anxious. Affect is congruent. Thoughts are linear and logical. No evidence of psychosis. Reviewed daily check in sheet and no reports of suicidal ideations or intent.] Client Response/Progress/Benefit: [Pt was an active participant in group discussion, providing input and feedback throughout which is progress compared to pt usual contributions to group. Emotion for today is ?anxious?. Pt attributes this to worries about having to accompany her cousin to court tomorrow as he is facing potential detention time. Pt did well to apply skills learned in identifying strategies for easing her anxiety today. Indicated that she can go to the fair with her mother which will allow her to focus on other things and that she needs to continue to ?continue focusing on challenging negative thoughts?. Pt ability to identify strategies for managing reported stressor is evidence of progress as she has had difficulties in recognizing skills outside of distraction. Pt discussed current mental health wins which included decreased isolation and increased time spent with her family outside of the home, as well as practicing challenging ?all or nothing thinking?. Pt provided an example of using thought challenging when she discovered she had not been hired at [employer]. Benefited from group support and processing strategies for managing identified stressor. Will continue in IOP to prevent decompensation, improve coping strategies for anxiety, and increase emotion regulation.] Narrative Note: []
--- NOTE | 2019-03-02 10:14 | BH.SGPN.GN ---
Behaviors/Verbalizations/Mental Status: []Client alert and oriented, disheveled in appearance. Eye contact good. Motor activity appropriate. Speech within normal limits. Affect constricted, mood dysthymic. Thoughts linear, logical, no signs of hallucinations or delusions. Client Response/Progress/Benefit: []Pt was an active participant in group discussion. Processed quote of the day with peers. Group discussed the MH benefits to having open and clear communication with support and providers. Group also discussed the barriers that tend to impact clear and open communication which include: depression, anxiety, fear, not trusting others, feeling like others don't understand you, shutting down, and unmanaged emotions. Pt stated she sometimes doesn't verbalize how she is feeling because assume others know how she is feeling based on her she acts. Pt was attentive during psycho-education on communications styles (aggressive, passive, passive-aggressive, and assertive). Also provided input on the pros and cons to each communication style. Pt to continue IOP level of care to decrease depression, increase utilization of healthy coping, and prevent decompensation. Narrative Note: []
--- NOTE | 2019-03-02 11:16 | BH.SGPN.GN ---
Behaviors/Verbalizations/Mental Status: []Client alert and oriented, causally dressed and groomed. Eye contact good. Motor activity appropriate. Speech within normal limits. Affect congruent, mood euthymic. Thoughts linear, logical, no signs of hallucinations or delusions. Client Response/Progress/Benefit: []Client responded well to session, active participant. Engaged in ongoing psychoeducation on the different communication styles. Client able to gain insight into her communication style and client reported belief she is passive. Client reported ?I never stand up for myself and I let people walk all over me.? Client reported this communication style has negatively impacted her mental health and relationships. Client shared being passive makes her have low self-esteem and increases depression. Client reported belief that being in group has helped her speak her mind more. Participated in group activity and discussion. Able to use the activity to reflect on ways to improve communication. Attentive during psychoeducation on D.E.A.R M.A.N and reported she wants to work on negotiating with her supports. Appeared to benefit from increasing self-awareness and practicing in the moment coping skills. Will continue IOP to prevent decompensation, improve interpersonal effectiveness skills, and increase mood stability.
--- NOTE | 2019-03-04 10:07 | BH.SGPN.GN ---
Behaviors/Verbalizations/Mental Status: [Client alert and oriented, disheveled with fair grooming. Eye contact fair to good. Motor activity appropriate. Speech within normal limits. Affect congruent, mood euthymic and anxious. Thoughts linear, logical, no signs of hallucinations or delusions. ] Client Response/Progress/Benefit: [Client responded well to session, actively listening throughout discussion. Client appeared to connect with the topic of personal pitfalls and how they can prevent mental health progress. Client identified barriers to making mental health progress such as lack of support, isolating, and avoidance. Client nodding and indicated connecting to examples of a personal pitfalls identified by group. Client participated in the group activity and reported feeling anxious and frustrated when the group experienced various setbacks. Client shared that the support of the group helped her to cope in the moment. Progress in increased levels of participation during activity compared to earlier in session, however she continues to struggle with application of skills outside of treatment environment. Client appeared to benefit from increasing self-awareness and applying in the moment coping. Client to continue IOP to prevent decompensation, continue to promote application of emotion regulation skills, and decrease anxiety.] Narrative Note: []
--- NOTE | 2019-03-04 11:15 | BH.SGPN.GN ---
Behaviors/Verbalizations/Mental Status: []Client alert and oriented, disheveled in appearance. Eye contact good. Motor activity appropriate. Speech within normal limits. Affect constricted, mood depressed. Thoughts linear, logical, no signs of hallucinations or delusions. Client Response/Progress/Benefit: []Pt receptive of session, engaged throughout AEB pt providing positive input to group discussion. Pt completed a worksheet where she identified personal pitfalls impacting mental health progress. Identified pitfalls as: isolating, putting others first, staying in bad relationships, lack of trust, and staying in her past. Pt identified she wants to focus on the pitfall of not trusting others. Pt stated she will work on increasing trust in others by talking with others and not jumping to conclusions that others are bad. Benefited from identifying personal pitfalls and strategies to overcome these pitfalls. Pt has made progress in IOP with increasing self-awareness and making efforts to apply skills outside treatment environment. Recommended continue tx to maintain gains, increase use of healthy coping skills, decrease depression, and prevent decompensation. Narrative Note: []
--- NOTE | 2019-03-04 15:40 | BH.MDN_ITS ---
Multi-Disciplinary Note - Note 30-min Individual Time Started:: 09:37 Date: 03/04/19 Purpose of session/treatment goals addressed:: The purpose of session was to check-in on symptoms and stressors. Another goal was to discuss strategies that can help with managing anxiety. Additional topics: local resources and strategies for promoting independence. Eye Contact:: Good Motor Activity:: Appropriate Appearance:: Casual, Other - pt appears to wear the same pair of sweatpants several days in a row. Hygiene continues to appear moderately tended to Speech:: Appropriate Mood:: Euthymic, Anxious Affect:: Congruent Thoughts:: Linear, Logical, No evidence of hallucinations/delusions noted Staff Interventions:: Therapist used open ended questions to elicit information regarding client's symptoms and ability to cope with daily stressors since previous weeks session. Provided empathic responses to provide support and emotion validation. Used [place] techniques to identify barriers impacting treatment progress and continue to promote change behaviors. Therapist strategized with client on what coping skills client would be willing to try to improve ability to self-regulate. Therapist reviewed thought log for challenging anxiety producing thoughts and provided client with homework to complete thought log and track which grounding skills she uses to self-regulate in times of increased anxiety. Client Response:: Pt reported she has seen improvement with being able to manage symptoms of depression and has found that exercise and socialization has been most helpful. She shared being proud of herself as she had several small ?mental health wins? on previous day. Pt went on to discuss reaching out to a new friend and walking to the fair with them despite some anxiety about doing so. Indicated she had been nervous to hangout with someone new but that after speaking to her mom and reminding herself not to isolate her anxiety decreased. Shared the experience was positive and indicated plans to spend time with this person [place]. Additionally shared increased motivation to continue working on independent living skills and has been actively looking for a job. Denies applying to anywhere however. Pt and therapist discussed small steps she can take to work towards this goal and pt indicated willingness to pick three places she can apply by next week, as well as call to check on status of application for the [employer] job readiness program. Pt expressed that although she has noticed a significant improvement in her sx for depression, she continues to have difficulties with managing anxiety. Pt went on to describe her anxiety is often health related and that she has fears of something being wrong with her physically despite rationally knowing there is not. Expressed that grounding and deep breathing skills can be helpful at times but that ?the thoughts just keep popping back up?. Remainder of session spent reviewing cognitive distortions and ways to combine application of calming skills to reduce anxiety with thought challenging techniques. Pt expressed willingness to begin completing a daily thought log to improve thought challenging skills. Risks/Concerns:: Client denies suicidal ideation, plan or intention as of 03/04/19. There is no apparent imminent risk to self or others. Future oriented and indicates protective factors of family and personal goals she wants to accomplish. Progress Toward Goals/Plan:: Client demonstrating progress with increased ability to reduce isolation and practice opposite action via exercising when feeling low. Client also starting to apply skills such as grounding and deep breathing for anxiety management; however, appears to have difficulties in consistent application of skills. Continues to report high anxiety related to distortions about her health and fears she is ill. Open to practicing thought challenging and using a thought log. Pt is inconsistent with homework completion and often appears to rely heavily on reassurance from her mother when in distress rather than actively applying internal distress tolerance skills. Recommended continued IOP tx to reduce anxiety, improve application of internal coping skills, and prevent decompensation. Time Stopped:: 10:03
--- NOTE | 2019-03-05 10:05 | BH.SGPN.GN ---
Behaviors/Verbalizations/Mental Status: []Client alert and oriented, disheveled in appearance. Eye contact poor. Motor activity appropriate. Speech within normal limits. Affect flat, mood depressed. Thoughts linear, logical, no signs of hallucinations or delusions. Client Response/Progress/Benefit: []Client passive participant, distracted at times AEB pt looking at her phone. Pt's decreased attentiveness could be attributed to pt finding out her cousin today. Pt appeared to listen to group identifying consequences of ignoring conflict which included: increased depression, unresolved anger, increased anxiety, complacency, resentment, and conflict worsening. Client listened to group identify barriers to addressing conflict which included: worrying about other person, pride, fear, being hard to face conflict, and negative thinking. Attentive and provided some input during psychoeducation on different conflict styles such as avoiding, accommodating, competing, and collaborative. Benefited by support of group environment as well as increase awareness of how conflict style impacts mental health. Progress noted with pt being able to effectively manage emotions when faced with a significant stressor. Will continue IOP tx to prevent decompensation, maintain safety, and increase consistent healthy coping skills. Narrative Note: []
--- NOTE | 2019-03-05 10:33 | BH.COMM ---
Communication Note - Communication with Client Communication Note: Pt's mother called to inform this therapist that pt's cousin had unexpectedly early this morning after completing suicide. She expressed concerns regarding pt's mental health and ability to cope given pt hx of depression and suicidal ideation. Therapist assured pt mother that therapist would meet with pt to assess for risk, provide supportive environment for grief processing, and create a grief management safety plan.
--- NOTE | 2019-03-05 11:05 | BH.SGPN.GN ---
Behaviors/Verbalizations/Mental Status: []Client alert and oriented, disheveled appearance. Eye contact good. Motor activity appropriate. Speech within normal limits. Affect constricted, mood depressed. Thoughts linear, logical, no signs of hallucinations or delusions. Client Response/Progress/Benefit: []Client responded well to session, quiet during discussion, active during activity. Contributed to ongoing discussion of the different conflict resolution styles, drawbacks, and appropriate times of use. Client indicated connecting most with the ?avoiding? approach when dealing with conflict.? Client reported when she avoids conflict it reinforces negative self-talk, increases depression, and makes her have low self-esteem. Client engaged in the activity and did well to practice using a collaborative approach as shown by her willingness to share ideas with peers rather than avoiding. Client appeared to benefit from increasing awareness of her personal conflict resolution style and from learning ways to increase healthy conflict resolution. Client recently lost a cousin and she is experiencing increased depressive symptoms. Will continue IOP to prevent decompensation and maintain safety.
--- NOTE | 2019-03-05 11:40 | BH.MDN_ITS ---
Multi-Disciplinary Note - Note 60-min Individual Time Started:: 08:53 Date: 03/05/19 Purpose of session/treatment goals addressed:: The purpose of session was to provide pt with a safe and supportive space to self-regulate and process grief regarding a recent loss. Another purpose was to assess pt for risk given recent stressor and create a concrete safety plan for coping with her grief. Eye Contact:: Good, Other - tearful throughout Motor Activity:: Appropriate Appearance:: Disheveled Speech:: Appropriate Mood:: Anxious, Depressed Affect:: Full Thoughts:: Linear, Logical, No evidence of hallucinations/delusions noted Staff Interventions:: Therapist provided a safe and therapeutic environment for pt to process the news of her recent loss. Provided supportive and empathic responses to validate pt emotions and normalize feelings of shock and anger. Therapist provided psychoeducation on grief process. Assessed pt for risk and applied [place] techniques to create a Grief Coping and Safety plan which included strategies for managing grief and sadness, coping with anger, supports to call, affirmational statements, and things to avoid. Provided pt with resources for local grief support groups and [facility] organization. Client Response:: Therapist met with pt following a phone call from pt mother who expressed concerns about pt ability to cope with the recent loss of her cousin. Pt entered session in distress and expressed ?I?m not doing so well?. With guidance and reminders of self-soothing strategies, pt was able to regulate herself and return to baseline. Discussed recent stressor of her cousin?s on previous date and indicated confusion regarding what may have led him to complete suicide. Pt and therapist spent a large portion of session processing her grief and allowing her to express various emotions, ask questions, and share her concerns. Therapist provided education on what to expect with the grief process and helped pt to recognize that she may experience emotions that don?t make sense while grieving. Reviewed role of anger in grief process. At times, pt struggled with use of distorted thought patterns such as ?I should have done something?, ?I shouldn?t be crying?, and use of ?what if? statements. Pt was receptive of being gently challenged when utilizing cognitive distortions and did well to work with therapist on identifying healthy alternative responses. Willing to discuss healthy means of coping with her emotions this weekend as she continues to grieve and worked with therapist to create a Grief Coping Skills Plan. Identified warning signs and ways to cope with depression and anger, affirmations she can tell herself, supports to reach out to, and things to avoid that would make matters worse. Pt indicates plans to reach out to her friend and go for a walk, listen to music, as well as spend some time reading this afternoon. Pt denies any active SI, plan, or intent. Indicates family as major motivations to live. Shared she plans to remind herself ?Even though this is hard, I m okay?. Risks/Concerns:: Some concerns as pt recently experienced a close loss. Pt however denies active SI, plan, or intent and was able to indicate an ability to maintain safety. Pt completed grief coping plan for the weekend. Future oriented and pt coping plan was communicated with her mother. Progress Toward Goals/Plan:: Some regression in pt ability to initially use emotion regulation skills, however displayed progress in her willingness to use calming techniques when guided and more quickly return to baseline. Pt was able to effectively process a major stressor without escalating to point of crisis or panic which indicates progress. Additionally did well to identify importance of having alternative coping skills for managing depression, anxiety, and grief rather than solely relying on her mother as primary form of support. Created coping plan for weekend, however pt continues to struggle with applying the various plans created and skills identified outside of the tx environment. Pt recommended continued IOP tx to better regulate her emotions, improve independent use of skills, and prevent decompensation. Time Stopped:: 09:57
--- NOTE | 2019-03-10 10:10 | BH.SGPN.GN ---
Behaviors/Verbalizations/Mental Status: []Client alert and oriented, disheveled in appearance. Eye contact fair. Motor activity appropriate. Speech within normal limits. Affect constricted, mood depressed. Thoughts linear, logical, no signs of hallucinations or delusions. Client Response/Progress/Benefit: []Client passive participant during group discussion AEB pt providing limited input, however did appear to listen attentively to others comments. Client stated social support can include more than just people. Client reported social support can also include coping skills, but sometimes she feels she doesn't have enough healthy coping skills. Group identified benefits of social support as gaining a different perspective, provide validation, help recognize warning signs, provide additional insight, and help us see personal strengths. Client was engaged during the group activity and showed increased engagement as shown by client communicating with peers and cooperating throughout. Appeared to benefit from gaining awareness of barriers that keep people from seeking social support. Client to continue IOP to increase consistent application of healthy coping skills, identify and challenge negative thoughts, and prevent decompensation. Narrative Note: []
--- NOTE | 2019-03-10 11:13 | BH.SGPN.GN ---
Behaviors/Verbalizations/Mental Status: []Client alert and oriented, disheveled appearance. Eye contact good. Motor activity appropriate. Speech within normal limits. Affect flat, mood depressed. Thoughts linear, logical, no signs of hallucinations or delusions. Client Response/Progress/Benefit: []Client responded well to session, actively participating in discussion. Client helped the group discuss and identify different social supports as well as the benefits of different supports. The group identified examples of personal, self-help, professional, spiritual, and co-worker social supports. Group identified benefits of each type of social support. Client reported she wants to increase her spiritual social supports to help client gain closure and acceptance after losing a loved one. Client identified barriers that could prevent client from improving this support such as: fear of judgement, pressure from others, and feeling out of place. Client reported she plans to call up area churches to gain more information. Client appeared to benefit from increasing understanding of different types of social support and identifying ways she can improve. Progress shown in client?s ability to prevent decompensation after losing a loved one. Will continue IOP to promote mood stability and increase application of healthy coping skills.?
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
--- NOTE | 2019-03-11 09:10 | BH.SGPN.GN ---
Behaviors/Verbalizations/Mental Status: [] Eye contact is good. Motor activity is appropriate. Appearance is neat. Speech is Appropriate. Mood is anxious. Affect is congruent. Thoughts are linear and logical. No evidence of psychosis. Reviewed daily check in sheet and no reports of suicidal ideations or intent. Client Response/Progress/Benefit: [] Pt was an active participant in group discussion. Had a very short and superficial check-in however provided appropriate feedback to peers. Continued grief reactions related to cousin's recent by suicide. She is going out of town to a wedding this weekend which she reports will be a nice distraction. During the trip she will be visiting with her father with whom she has a conflicted relationship. She recently spoke with him and decided to forgive him due to his health issues. Trying to mend that relationship. Benefited from group support, encouragement, and feedback. Will continue in IOP to maintain safety, prevent decompensation, and increase healthy coping skills. Narrative Note: []
--- NOTE | 2019-03-11 10:11 | BH.SGPN.GN ---
Behaviors/Verbalizations/Mental Status: [Client alert and oriented, casually dressed and fair grooming. Eye contact good. Motor activity appropriate. Speech within normal limits. Affect congruent, mood euthymic. Thoughts linear, logical, no signs of hallucinations or delusions. ] Client Response/Progress/Benefit: [Pt responded well to session, attentive and providing input throughout. Pt commented on the quote and stated avoiding anxiety can cause her to use sleep more often which makes symptoms worse. Pt connected with discussion on different types of anxiety, as well as the difference between ?normal? anxiety and anxiety disorders. Discussed that anxiety feels like ?I?m not myself?. Client helped the group identify examples of the various ways anxiety manifests and symptoms associated with thoughts, physical symptoms, and safety behaviors. Client gained awareness of personal physical symptoms which included: burning scalp, chest pain, loss of focus, and butterflies in stomach. Client also identified safety behaviors she has engaged in that provide short term relief but increase anxiety over time. Client?s safety behaviors included: sleep, isolation, and distractions. Client appeared to benefit from gaining insight to safety behaviors and how anxiety manifests itself, as well as harmful impact of safety behaviors on mental health. Client appears to be progressing with increasing awareness of her symptoms and however continues to struggle with consistently implementing coping skills outside tx environment which impacts anxiety management. Will continue IOP to promote skill application, improve independent use of internal coping mechanisms, and prevent decompensation.] Narrative Note: []
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
--- NOTE | 2019-03-12 10:10 | BH.SGPN.GN ---
Behaviors/Verbalizations/Mental Status: [] Eye contact is good. Motor activity is appropriate. Appearance is disheveled. Speech is Appropriate. Mood is depressed. Affect is flat. Thoughts are linear and logical. No evidence of psychosis. Client Response/Progress/Benefit: [] Participated at times during discussions providing some insight. Attentive during psychoeducation on differences between fixed and growth mindset. Worked with group to identify how a fixed mindset can impact our mental health which included; not trying new coping skills, believing we can't get better, keeping us stuck, reinforcing fear of failure, decreasing motivation, and avoiding challenges. Group identified the impact that a growth mindset can have on mental health which includes; More likely to embrace challenges, encourages us to try new skills, learn from setbacks rather than ruminate on them, encourages us to believe in ourselves. Pt was able to identify some examples of fixed mindset that she often has. Benefited from group by increasing awareness of how one's mindset impacts our mental health. Narrative Note: []
--- NOTE | 2019-03-12 11:13 | BH.SGPN.GN ---
Behaviors/Verbalizations/Mental Status: [Client alert and oriented, casually dressed and fair grooming. Eye contact good. Motor activity appropriate. Speech within normal limits, at times appearing tangential. Affect congruent, mood euthymic. Thoughts linear, logical, no signs of hallucinations or delusions. ] Client Response/Progress/Benefit: [Pt attentive, engaged during discussion and activity. She contributed to discussion on how fixed mindset thoughts experienced in the challenge activity initially impacted ability to complete the task. Pt indicated that her own negative self-talk and doubt led her to experience some fixed thoughts. Pt able to make connections between activity and facing fixed thoughts in daily life which indicate progress in level of personal insight. She did well to apply cognitive restructuring to reframe previously identified fixed thoughts, transforming fixed thought of ?I?ll never love again? to ?I?ll love the right person when they come along?. Benefitted from discussing benefits of growth mindset and brainstorming strategies for reframing fixed thoughts. Indicated plans to further develop growth mindset by challenging herself to ?keep things in perspective?. Recommended continued IOP tx to further improve insight and understanding of mental health sx, improve emotion regulation skills and use of internal coping strategies, as well as prevent decompensation. ] Narrative Note: []
--- NOTE | 2019-03-12 11:13 | BH.SGPN.GN ---
Behaviors/Verbalizations/Mental Status: []Client alert and oriented. Disheveled in appearance. Eye contact fair. Motor activity appropriate. Speech within normal limits. Affect congruent, mood dysthymic. Thoughts linear, logical, no signs of hallucinations or delusions. Client Response/Progress/Benefit: []Pt engaged participant AEB pt providing input at times during discussion and appeared to listen attentively to peers. Pt appeared to connect with the different relaxation skills discussed. Pt completed worksheet identifying what relaxation skills currently use to manage anxiety and identified what skills she would be willing to try to help manage anxious symptoms. Pt identified she is willing to try the following relaxation skills: using positive self-talk, breathing skills, and engaging all of her senses. Pt seemed to benefit from increased awareness of healthy skills to manage anxious symptoms and identifying skills willing to practice outside treatment environment. Pt to continue IOP level of care to improve emotional regulation, increase generalization of healthy coping skills, and prevent decompensation. Narrative Note: []
--- NOTE | 2019-03-18 10:05 | BH.SGPN.GN ---
Behaviors/Verbalizations/Mental Status: [Client alert and oriented, casually dressed and fair grooming. Eye contact fair to good. Motor activity appropriate. Speech within normal limits. Affect congruent, mood anxious and dysthymic. Thoughts linear, logical, no signs of hallucinations or delusions. ] Client Response/Progress/Benefit: [Client was a semi-active participant in group discussion and activity. Mostly engaged during discussion, actively listening as group reflected on the quote. Worked with the group to identify benefits to making changes in our lives which included: improving one?s mental health, increasing confidence, personal growth, and reducing unhealthy coping skills. Group identified barriers to change or what keeps us from making changes which included: it is easier to not change, lack of motivation, past negative experiences, lack of awareness as to how to make changes, limited support, negative thinking, and fear. Client participated along with group in activity where they identified and discussed the emotions related to change. Client expressed that change makes her feel anxious and she often experiences ?what if? thinking. She was attentive during psychoeducation on the change process and provided input regarding different emotions that may be experienced throughout the process. Pt benefited from increased awareness and understating of emotions, benefits, and barriers related to change. Progress noted as shown by client?s report of reduction of depression levels. Will continue IOP tx to promote gains and reinforce healthy coping skills.] Narrative Note: []
--- NOTE | 2019-03-18 10:44 | BH.MDN_ITS ---
Multi-Disciplinary Note - Note 30-min Individual Time Started:: 09:35 Date: 03/18/19 Purpose of session/treatment goals addressed:: The purpose of this session was to review client's progress and discuss strategies that will promote continued mood stability and maintain gains made in IOP. Another goal was to discuss discharge recommendations. Eye Contact:: Good Motor Activity:: Appropriate Appearance:: Casual, Other - gooming is fair Speech:: Appropriate Mood:: Euthymic Affect:: Congruent Thoughts:: Linear, Logical, No evidence of hallucinations/delusions noted Staff Interventions:: Therapist used open-ended questions to elicit information and further explore client's thoughts and perception of personal progress throughout IOP program. Therapist discussed with pt potential areas of continued tx focus following discharge and reviewed personal supports, warning signs, and coping skills aimed at continuing to promote gains and prevent setbacks. Therapist discussed aftercare plan with client and used strengths-perspective to highlight and empower client on the goals client accomplished. Therapist discussed the benefits of ongoing maintenance and use of daily coping skills. Client Response:: Client responded well to session, open to meeting with therapist. Client reflected on personal progress since starting IOP and reports decreased depression and increased ability to cope with her mental health symptoms through applying positive self-talk, journaling, and increased use of supports. Self-reports her relationship with her mother continues to struggle at times but that she is doing better with practicing independent living skills which has helped improve the relationship as well. Pt went on to indicate noticing that her self-confidence has improved, and she is no longer isolating as much as she had before beginning the program. Pt discussed that it will continue to be important for her to reach out and spend time with supports other than her family. Shared that this will reduce conflict with her mother and grandmother as well as increase independence and self-confidence. Identified importance of ongoing application of thought challenging to continue to work on reducing rumination, increase motivation levels, decrease absolute thinking, and work on improving ability to more consistently apply reframing techniques. Reviewed additional coping skills that will promote gains and maintain mood stab ility. Client's coping skills included; opposite action, self-care, communicating with supports, deep breathing, and journaling. Client?s DSM-5 scores decreased by 64% from admission to discharge. Client self-reported progress in reduced symptoms, improved self-confidence, decreased depression, and feeling more hopeful. Risks/Concerns:: Client denies any active suicidal ideations, plan, or intent as of 03/18/19. Progress Toward Goals/Plan:: Client to discharge from [facility] today as she has made progress toward treatment goals as evidenced by reduced DSM-5 scores and self- report of improved mood stability and reduced depression. Client also reports increased self-confidence. Client acknowledges that ongoing progress will be determined by client?s continued application of coping skills and challenging herself to engage in opposite action and prosocial activities. [facility] initial individual appointment next week, 03/24/19. 2. Follow up with your primary care for medication monitoring while waiting on psychiatry at the [facility] as well. 3.[facility] in [place] is always a great resource for social support. Time Stopped:: 09:57
--- NOTE | 2019-03-18 11:10 | BH.SGPN.GN ---
Behaviors/Verbalizations/Mental Status: []Client alert and oriented, disheveled appearance. Eye contact good. Motor activity appropriate. Speech within normal limits. Affect congruent, mood euthymic. Thoughts linear, logical, no signs of hallucinations or delusions Client Response/Progress/Benefit: []Client responded well to session, attentive and engaged throughout. Client participated in the activity and processed emotions and barriers associated with making change. Client appeared to connect with discussion on weighing the pros and cons associated with change and benefited from learning to do so through use of decisional balance sheet. Identified a change she would like to make to improve mental health as: coping better with her depression. Client reported potential benefits of change as: becoming more independent and being more social. While the costs of not making the change included: ongoing isolation, less likely to have relationships, and negative thinking. Progress noted in ability to identify how making this change may promote additional healthy behaviors and thinking patterns. Client recommended to continue IOP tx to promote use of healthy coping skills and identify strategies to prevent setbacks.
--- NOTE | 2019-03-19 08:51 | BH.AFTERPLAN ---
Aftercare Plan - Demographics Treatment End Date:: 03/19/19 Psychiatrist:: Ciera Harris Psychiatrist Office #:: [phone] [facility]/IOP Therapist:: Janki Dumont Therapist Phone #:: [phone] - Medications Home Medications: Home Medications Omeprazole 20 mg PO DAILY 11/02/18 Sertraline HCl [Zoloft] 12.5 mg PO DAILY 01/31/19 Potassium Chloride [Klor-Con] 20 meq PO DAILY #7 packet 02/05/19 Cephalexin [Keflex] 500 mg PO Q6 #30 cap 02/24/19 Clotrimazole [Lotrimin AF] 24 gm TP BID 7 Days cream..g. 02/24/19 Sulfamethoxazole/Trimethoprim [Bactrim Ds Tablet] 1 ea PO BID #14 tab 02/24/19 - Plan Details Progress/Aftercare Plan Details:: Lisset has been able to work on various areas of her mental health while in the IOP program and has made some progress with doing so. Lisset has done well to learn and begin implementing healthy coping skills to health better manage depression symptoms and anxiety. She reports decreased depression and increased ability to cope with her mental health symptoms through applying positive self-talk, journaling, and increased use of supports. Lisset reports her relationship with her mother continues to struggle at times but that she is doing better with practicing independent living skills which has helped improve the relationship as well. Lisset additionally reports that her self-confidence has improved and she is no longer isolating as much as she had before beginning the program. She has increased self-awareness of cognitive distortions, unhealthy coping skills, and behaviors that reinforce anxiety and depression and indicates an improved ability to challenge and replace these, though would continue to benefit from ongoing focus in this area. Lisset is beginning to work on using reframing and positive self-talk statements to help with anxiety and she is encouraged to continue working on this post IOP discharge. She was also encouraged to continue individual counseling and [facility] to continue to make progress. Strategies for Success:: 1. AWARENESS and COMMUNICATION! Continue to practice daily check-ins with yourself. Be sure to pay attention to warning signs and triggers and ask yourself: ?what is impacting my mood? Is there anything in my control that is can do or stop doing to improve the moment. What do I need right now to cope?? 2. Challenge negative thoughts and continue with using positive self-talk and reframing statements. Remember to ask yourself: What's the evidence against this thought? Am I catastrophizing about something that I don?t have all the information for? 3. Self-care. How are you doing in all areas of self-care? How are you doing with practicing independent living skills and holding yourself accountable? 4. SUPPORT! Internal support (how can you help yourself?) and external support (family, friends, counseling, etc.) Pay attention to isolation and continue to use the skills that have helped you not isolate. Keep reaching out to friends. 5. CONSISTENCY! Consistency with medication, counseling appointments, coping skills, and routine! 6. Review your binder! - Appointments Appointments/Referrals to Other Services:: 1. [facility] for you initial individual appointment next week, 03/24/19. 2. Follow up with your primary care for medication monitoring while waiting on psychiatry [facility] as well. 3.[facility] in [place] is always a great resource for social support.
--- NOTE | 2019-03-19 09:07 | BH.SGPN.GN ---
Behaviors/Verbalizations/Mental Status: [Eye contact is fair to good. Motor activity is appropriate. Appearance is casual, grooming fair. Speech is Appropriate rate and tone. Mood is euthymic. Affect is congruent. Thoughts are linear and logical. No evidence of psychosis. Reviewed daily check in sheet and pt denies any active SI, plan, or intent. ] Client Response/Progress/Benefit: [Pt responded well to session, engaged throughout and open to processing with the group. Pt indicated current emotion as ?happy? and discussed that this is due to feeling more confident in herself as a result of spending time on personal hygiene needs and dressing up today. Pt identified this as a mental health ?win? and shared feeling as though her self-love has improved a lot since beginning IOP tx. As this is pt?s last day she spent time reflecting on various areas of progress. Additional win identified as starting to more actively apply calming skills outside treatment environment and has seen decreased mental health sx specifically in terms of depression and isolation as a result. Pt appearing to benefit from support and structure of group environment and reflecting on progress in IOP. She recommended continued outpatient tx following IOP discharge on this date to prevent decompensation, decrease anxiety, and promote ongoing application of healthy coping skills.] Narrative Note: []
--- NOTE | 2019-03-19 10:14 | BH.SGPN.GN ---
Behaviors/Verbalizations/Mental Status: []Client alert and oriented, casually dressed and groomed. Eye contact fair. Motor activity appropriate. Speech within normal limits. Affect congruent, mood euthymic. Thoughts linear, logical, no signs of hallucinations or delusions. Client Response/Progress/Benefit: []Client responded well to session, attentive and participating in small group discussion. Group identified the benefits to setting boundaries as well as the consequences of not setting healthy boundaries. Benefits included: improved mental wellness, improved self-worth, self-love, less stress, less resentment, and avoid being taken advantage of. Group discussed the consequences of not setting boundaries which included: worsening mental health, lack of progress, and staying stuck in unhelpful situations. Client shared it is hard for her to say no, but she also recognizes that ?no boundaries means you sink into a deeper hole.? Client often on her phone during discussion of the different types of boundaries and engaged in the self-assessment activity. Client able to recognize her own mental health suffers when she does not set boundaries. Client seemed to benefit from increased awareness how poor boundaries can negatively impact mental health. Client to discharge from [facility] today as she has made progress towards her treatment goals and no longer meets criteria for IOP level of care.
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
--- NOTE | 2019-03-20 11:20 | BH.SGPN.GN ---
Behaviors/Verbalizations/Mental Status: []Client alert and oriented, casual dress, hygiene poor. Eye contact good. Motor activity appropriate. Speech within normal limits. Affect congruent, mood euthymic. Thoughts linear, logical, no signs of hallucinations or delusions. Client Response/Progress/Benefit: []Pt responded well to session, active participant AEB providing input at times and taking notes throughout. Pt worked with group to further process the self-assessment activity. Pt participated in the discussion reviewing different boundary setting styles and reported connecting with the ?porous? boundary setting type with relation to others. Pt stated she struggles with over sharing to others and has difficulty saying no. Pt indicated that being porous results in her putting others needs before her own, which she recognizes negatively impacts her mental health. She appeared to benefit from increasing awareness of personal boundary style and from learning ways to increase healthy boundaries. Pt progress noted as pt reports increased insight into how her current boundaries are impacting her mental health however pt struggles with setting and maintaining healthier boundaries. Pt has met maximum benefit from IOP and plan is to discharge today. Narrative Note: []
--- NOTE | 2019-06-05 23:54 | BH.MDN ---
Multi-Disciplinary Note - Note 45-min Individual Time Started:: 09:13 Date: 06/05/19 Purpose of session/treatment goals addressed:: Purpose of session was to assess current sx, stressors, and tx goal progress. Another purpose was to aid pt in processing current relationship stressors and identifying strategies rumination and negative self-talk regarding this stressor.
--- NOTE | 2019-06-06 00:11 | BH.MDN_ITS ---
Multi-Disciplinary Note - Note 45-min Individual Time Started:: 09:13 Date: 02/03/19 Purpose of session/treatment goals addressed:: Purpose of session was to assess current sx, stressors, and tx goal progress. Another purpose was to aid pt in processing current relationship stressors and identifying strategies rumination and negative self-talk regarding this stressor. Eye Contact:: Good Motor Activity:: Appropriate Appearance:: Disheveled, Casual Speech:: Appropriate Mood:: Anxious, Irritable, Dysthymic Affect:: Congruent Thoughts:: Linear, Logical, No evidence of hallucinations/delusions noted Staff Interventions:: Therapist asked open ended and furthering questions to elicit additional information regarding pt current thoughts on symptoms, stressors, and treatment goal progress. Therapist provided support by using active listening and validating emotions to pt while discussing ongoing stressors. CBT to promote ongoing identification of distortions and use of thought challenging behaviors to reduce anxiety related sx. Client Response:: Client receptive of session, engaged throughout. Pt reported she has found the IOP program to be helpful thus far but over the past several days has been struggling with increased anxiety and agitation related to her current relationship. Shared that she and her fianc? have been growing steadily distant as he lives with his parents and they disapprove of the relationship. I ndicated that her fianc??s father has ?been a jerk and completely cut ties?, explaining that he has forbidden her fianc? from speaking with her. Pt reports limited insight as to why her fianc??s parents disapprove of the relationship. Pt discussed ?this is not what I had planned for my relationship?. Appearing to externalize her relationship tension and often experienced difficulties in identifying how her behaviors or means of communication may have contributed to current relationship discord. Difficulties in identifying ways to reframe current thoughts, though with aid was able to identify ?I?ve made it through worse? and ?this may be for the best? as affirmations she can begin telling herself. Risks/Concerns:: Pt denies suicidal thoughts, plan or intention to date, 02/03/19. Progress Toward Goals/Plan:: Progress limited as pt discussed increased sx of anxiety, agitation, and depression related to current relationship discord. Indicated that this has led her to want to sleep more and avoid people as well as increased irritability. Reports inconsistent application of emotion regulation skills and mindfulness. Continues to struggle with follow-through during times of increased stress/anxiety which may be impacting progress. Continues to report tension in relationship with majority of her supports however struggles to apply effective communication strategies. Plan is to continue IOP tx to promote application of healthy skills identified and stabilize mood, as well as reduce anxiety and prevent decompensation. Time Stopped:: 10:03
== END 2019-03-19 13:36 | disposition home or self-care (01) ==
LOC: BHIOP 09:00
PROVIDERS: Family Provider Pediatrics; PCP Pediatrics; Referring Provider Psychiatry & Neurology Psychiatry; Visit Provider Psychiatry & Neurology Psychiatry
DX: F33.2 Major depressive disorder, recurrent severe without psychotic features (principal); F41.0 Panic disorder [episodic paroxysmal anxiety]
CPT/HCPCS: 90833; 99214; H0035; H2012; H2020; 90832; 90837

== ENCOUNTER 2019-02-24 13:14 | Emergency (ER) | payer MEDICAID, SELFPAY ==
[2019-02-24 13:15] VITALS: BP 154/96; PULSE 90; RESP 18; TEMP 36.6; O2SAT 97; BMI 40.4
--- NOTE | 2019-02-24 13:32 | ED.VISSUMM ---
- ER Visit Summary Date of Service: 02/24/19 Chief Complaint: Rash History of Present Illness: The patient is a 18 F history of depression, asthma and reflux. Patient states she is in a rash underneath her breasts and on top of her breast the last 2 days. Denies any fever or chills. No prior history. Physical Examination: Well-appearing young female no acute distress. Vital signs afebrile. H. Neck nontender. Lungs clear to auscultation heart regular rate and rhythm no murmur. Abdomen soft nontender normal bowel sounds no peritoneal signs. Extremities moves all 4. Neurovascular intact. Back unremarkable. Skin unremarkable except underneath her breast she has a rash consistent with early yeast infection. There are also some satellite lesions but no pustules and no pus also lesions on top of the breasts. Nurse present during the exam. Otherwise skin exam is unremarkable. Test Results: None Emergency Department Course and Treatment: Underneath the breast this appears to be a yeast infection. There is also some satellite lesions which very well may be knees but she will also be placed on Keflex and Bactrim for possible MRSA infection. Treatment Plan: Lotrimin cream. Keep area dry. Bactrim and Keflex for 7 days. Follow-up. Return if worse. Disposition: Discharge Impression: Skin rash secondary to yeast infection This note was generated with [employer] dictation software. It may contain incorrect words, spelling, and punctuation that were not noted in review of the chart prior to signing ED Disposition - Plan for ED Patient: Referrals: Zeny Garcia MD [Primary Care Provider] -
--- NOTE | 2019-02-24 13:35 | ED.DEP ---
ED Disposition - Plan for ED Patient: Disposition: Home or Assisted Living Instructions: SAGE SKIN INFECTION (Adult) Prescriptions: Sulfamethoxazole/Trimethoprim [Bactrim Ds Tablet] 1 ea PO BID #14 tab Prescription Printed Cephalexin [Keflex] 500 mg PO Q6 #30 cap Prescription Printed Clotrimazole [Lotrimin AF] 24 gm TP BID 7 Days cream..g. Prescription Printed Referrals: Zeny Garcia MD [Primary Care Provider] - 1 Week if not improving Additional Instructions: Lotrimin cream as a treat the skin yeast infection underneath your breast. Shower and bathe normally. But dry the area thoroughly throughout the day. The antibiotic Bactrim and Keflex for possible skin infection. Finish both prescriptions. Follow-up with your doctor if not improving return to ER if a lot worse.
--- OUTSIDE RECORDS SUMMARY | 2019-02-25 07:25 | XMS RPT_ITS | CCD ---
:1999 External Reference #:[id number] Author Organization [employer] Care Team Providers Name Role Phone Sara Nickerson Attending Unavailable Kimo LEDBETTER Primary Care Unavailable Results Result Name Value Range Unit Interpretation Flag Date Location vag pathogens dna o n 2019-01-16 Juliana sp DNA Negative for Negative for Normal 9 [facility] Probe Juliana species Juliana species [place] ([id number]) by DNA Probe by DNA Probe Comment: Performed By: #### VAGDNA ## ## [facility] [address] [place] [phone] Roxane vag DNA Negative for Negative for Normal 01-16-2019 [facility] Probe Gardnerella Gardnerella [place] and vaginalis by DNA vaginalis by DNA ([id number]) Probe Probe Comment: Performed By: #### VAGDNA ## ## [facility] [address] [place] [phone] Trich vag DNA Negative for Negative for Normal 01-16-2019 [facility] Probe Trichomonas Trichomonas Clevel and vaginalis by DNA vaginalis by DNA ([id number]) Probe Probe Comment: Performed By: #### VAGDNA ## ## [facility] [address] [place] [phone] urine culture on 09-01-26 Bacteria identified Sp. Request/Comment: - Specimen received in pre servative Normal 01-16-2019 [facility] Cx Nom (U) Jacobo ([id number]) Culture Result - 10,000 - <50,000 CFU/ml Normal urogenital f audra Comment: Performed By: #### URCUL ### # [facility] [address] [phone] progress on 2018-12 PROGRESS HNO ID: [id number] Normal 01-16-2019 [facility] Author: Alan Ortega [place] ([id number]) Service: ? Author Type: Physician Type: Progress Notes Filed: 01/16/2019 9:28 PM Note Text: Patient presents with: UTI: burning with urination and frequency x 2 weeks Vaginal Discharge: itching and white discharge x 2 weeks HPI: Symptoms for 2 weeks. Dysuria: Yes. External itching and burning mostly. Frequency: Yes Hematuria: No Discharge: Yes, chunky white Nausea: No Fever or chills: No Back pain: Yes - chronic unchanged Abdominal pain: lower Prior UTI: Yes. No known prior yeast infection STI: No. She is sexually active. Depo shot in November. Treated with vagisil. PAST MEDICAL HISTORY Diagnosis Date - ADD (attention deficit disorder) - ADHD (attention deficit hyperactivity disorder) - Asthma PAST SURGICAL HISTORY Procedure Laterality Date - PAST SURGICAL HISTORY OF Right 11/26/2018 right knee surgery MEDICATIONS: Current Outpatient Medications: medroxyPROGESTERone (DEPO-PROVERA) 150 mg/mL injection Injec t 1 mL intramuscularly every 12 weeks. BECLOMETHASONE DIPROPIONATE (QVAR INHALATION) Inhale as inst ructed. albuterol HFA (VENTOLIN HFA) 90 mcg/actuation inhaler Inhale 2 Puffs as instructed. albuterol 90 mcg/actuation Aero Inhale 2 Puffs as instructed three times daily as needed. FOR WHEEZING AND SHORTNESS OF BREATH. Current Facility-Administered Medications: medroxyPROGESTERone 150 mg injection (DEPO-PROVERA) 150 mg I NTRAMUSCULAR every 12 weeks ALLERGIES: ALLERGIES Allergen Reactions - Peanuts Anaphylaxis - Amoxicillin Hives - Codeine GI Upset - Lactose Vomiting - Red Dye Vomiting VITALS: BP 104/66 Pulse 92 Temp 37.1 ?C (98.7 ?F) (Tympanic) R dayan 17 Wt 89.9 kg (198 lb 3.2 oz) SpO2 97% PHYSICAL EXAM: GEN: NAD. Accompanied by her mother. Ambulates with a crutch . HEENT: EOMI, conjunctiva clear, moist mucous membranes HEART: regular rate and rhythm, no murmurs LUNGS: clear to auscultation, no wheezes or crackles, no inc reased WOB ABDOMEN: Obese, Soft, nondistended, no masses, LLQ discomfor t BACK: No CVA tenderness, no midline tenderness, left lumbar discomfort : Chaperoned exam. Mild external irritation, some scabbed lesions on the thighs, clear moisture in perineal area. Vaginal swab s obtained. No internal manual or speculum exam. ASSESSMENT/PLAN: 1. Vaginal discharge - ICD9: 623.5, ICD10: N89.8 (primary di agnosis) 2. Vaginal pruritus - ICD9: 698.1, ICD10: N89.8 - GC/CHLAMYDIA DNA DET - VAGINAL PATHOGENS DNA PROBES Will treat as indicated by results. 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 3. Dysuria - ICD9: 788.1, ICD10: R30.0 - UA DIP, URINE (POC) - trace LE, trace blood. External symp toms and discharge are probably not a result of UTI. - URINE CULTURE Alan Ortega MD gc/chlamydia amplif on 2019-01-16 Chlamydia Amplif Negative for Chlamydia Normal 01-16-2019 [facility] trachomatis by Stone rojas ([id number]) amplification. Comment: Performed By: #### GCCT #### [facility] [address] [address] GC Amplification Negative for Neisseria Normal 01-16-2019 [facility] gonorrhoeae by Stone rojas ([id number]) amplification. Comment: Performed By: #### GCCT #### [facility] [address] [address] GC/Chlam Amp Source Vaginal Normal 01-16-2019 [facility] ([id number]) Comment: Performed By: #### GCCT #### [facility] [address] [address] cnov on 2019-01-16 [facility] Normal 01-17-20 19 [facility] LISSET CARREON ([id number]) 99 [address] [facility] Time Provider Department ([id number]) 01/16/19 8:45 PM ALAN ORTEGA UCWSTR During your visit today, we recorded the following informati on about you: Temperature Pulse Respiration Blood pressure 98.7 degrees 92/minute 17/minute 104/66 Weight 89.9 kg Alan Ortega MD 01/16/2019 9:28 PM Signed Patient presents with: UTI: burning with urination and frequency x 2 weeks Vaginal Discharge: itching and white discharge x 2 weeks HPI: Symptoms for 2 weeks. Dysuria: Yes. External itching and burning mostly. Frequency: Yes Hematuria: No Discharge: Yes, chunky white Nausea: No Fever or chills: No Back pain: Yes - chronic unchanged Abdominal pain: lower Prior UTI: Yes. No known prior yeast infection STI: No. She is sexually active. Depo shot in November. Treated with vagisil. PAST MEDICAL HISTORY Diagnosis Date - ADD (attention deficit disorder) - ADHD (attention deficit hyperactivity disorder) - Asthma PAST SURGICAL HISTORY Procedure Laterality Date - PAST SURGICAL HISTORY OF Right 11/26/2018 right knee surgery MEDICATIONS: Current Outpatient Medications: medroxyPROGESTERone (DEPO-PROVERA) 150 mg/mL injection Injec t 1 mL intramuscularly every 12 weeks. BECLOMETHASONE DIPROPIONATE (QVAR INHALATION) Inhale as inst ructed. albuterol HFA (VENTOLIN HFA) 90 mcg/actuation inhaler Inhale 2 Puffs as instructed. albuterol 90 mcg/actuation Aero Inhale 2 Puffs as instructed three times daily as needed. FOR WHEEZING AND SHORTNESS OF BREATH. Current Facility-Administered Medications: medroxyPROGESTERone 150 mg injection (DE PO-PROVERA) 150 mg INTRAMUSCULAR every 12 weeks ALLERGIES: ALLERGIES Allergen Reactions - Peanuts Anaphylaxis - Amoxicillin Hives - Codeine GI Upset - Lactose Vomiting - Red Dye Vomiting VITALS: BP 104/66 Pulse 92 Temp 37.1 ?C (98.7 ?F) (Tympanic) R dayan 17 Wt 89.9 kg (198 lb 3.2 oz) SpO2 97% PHYSICAL EXAM: GEN: NAD. Accompanied by her mother. Ambulates with a crutch . HEENT: EOMI, conjunctiva clear, moist mucous membranes HEART: regular rate and rhythm, no murmurs LUNGS: clear to auscultation, no wheezes or crackles, no inc reased WOB ABDOMEN: Obese, Soft, nondistended, no masses, LLQ discomfor t BACK: No CVA tenderness, no midline tenderness, left lumbar discomfort : Chaperoned exam. Mild external irritation, some scabbed lesions on the thighs, clear moisture in perineal area. Vaginal swabs obtained. No internal manual or speculum exam. ASSESSMENT/PLAN: 1. Vaginal discharge - ICD9: 623.5, ICD10: N89.8 (primary di agnosis) 2. Vaginal pruritus - ICD9: 698.1, ICD10: N89.8 - GC/CHLAMYDIA DNA DET - VAGINAL PATHOGENS DNA PROBES Will treat as indicated by results. 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 3. Dysuria - ICD9: 788.1, ICD10: R30.0 - UA DIP, URINE (POC) - trace LE, trace blood. External symp toms and discharge are probably not a result of UTI. - URINE CULTURE Alan Ortega MD Referring Provider: SELF [200] Allergies As of Date: 01/16/2019 Noted Allergy Reaction PEANUTS 03/03/2012 10 - Anaphylaxis AMOXICILLIN 12/16/2018 4 - Hives CODEINE 03/03/2012 8 - GI Upset LACTOSE 03/03/2012 11 - Vomiting RED DYE 03/03/2012 11 - Vomiting Date Reviewed: 01/16/2019 Reviewed by: Rakel Daley Scout Leaser - Fully Assessed Reason for Visit: UTI [116] Cmt: burning with urination and frequency x 2 week s Vaginal Discharge [4161] Cmt: itching and white discharge x 2 weeks Primary Visit Diagnosis:Vaginal discharge [N89.8] Other Visit Diagnoses:Vaginal pruritus [N89.8] Dysuria [R30.0] Order(s):UA DIP, URINE (POC) [8060542] Order #: [id number] ec. #:[id number] URINE CULTURE [SQURCUL] Order #: [id number] GC/CHLAMYDIA DNA DET [SQGCCAMP] Order #: [id number] VAGINAL PATHOGENS DNA PROBES [SQVAGDNA] Order #: [id number] Prescriptions as of 01/16/2019 Sig: MEDROXYPROGESTERONE 150 MG/ML* Inject 1 mL intramuscularly e * QVAR INHALATION Inhale as instructed. ALBUTEROL SULFATE HFA 90 MCG/* Inhale 2 Puffs as instructed. ALBUTEROL 90 MCG/ACTUATION AE* Inhale 2 Puffs as instructed * Problem List As Of Date 01/16/2019 Noted Resolved ADHD (attention deficit hyperactivity disorder)* Asthma [J45.909] Menometrorrhagia [N92.1] INVALID FOR*12/10/2013 Heavy menstrual bleeding [N92.0] INVALID FOR* Abnormal uterine bleeding [N93.9] INVALID FOR* Medications Discontinued During This Encounter rivaroxaban (XARELTO) 10 mg tablet 01/16/2019 Class: Historical Med Route: ORAL Sig: Take 10 mg by mouth once daily. Disc: Reason for discontinue is not on file. 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 female. 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 Encounter for dietary counseling and surveillance 3. Exercise counseling 4. Sedentary lifestyle 5. Perseveration 6. Hypochondria 7. Gastroesophageal reflux disease, esophagitis presence not specified 8. Mild persistent asthma, unspecified whether complicated 9. Cough 10. Medication refill Plan Lisset was seen today for back pain. Diagnoses and all orders for this visit: Psychogenic pain Encounter for dietary counseling and surveillance Exercise counseling Sedentary lifestyle Perseveration Hypochondria Gastroesophageal reflux disease, esophagitis presence not sp ecified - omeprazole (PRILOSEC) 20 MG capsule; Take 1 Cap (20 mg) by mouth daily for 30 days Mild persistent asthma, unspecified whether complicated - loratadine (CLARITIN) 10 MG tablet; Take 1 Tab (10 mg) by mouth daily as needed for Allergies for up to 30 days - fluticasone (FLONASE) 50 MCG/ACT nasal spray; 2 Sprays b y Each Nare route daily Cough - ibuprofen (MOTRIN) 600 MG tablet; Take 1 Tab (600 mg) by m outh every 6 hours as needed for Pain Take with food Medication refill - albuterol 108 (90 Base) MCG/ACT inhaler; Inhale 2 Puffs in to the lungs every 4 hours as needed for Shortness of Breath or Cough Use with spacer. Return as needed. Subjective HPI Comments: Patient presents with mult iple areas of reported pain. The lower back, chest, stomach, headache, extremit ies. Patient asking for a procedure to go inside and check her heart. She rec ently had surgery on her right leg and has been laying in bed and i n a wheel chair for weeks following the surgery with very little effort to regain physical mobility. She pe rseverates on thoughts that she has some type of major illness. She makes excuses as to why she is unable to be mobile or to ch ismael her position from lying in bed to sitting up in a chair and trying to become mobile. [facility] and I advised that I would not be providing any narcotic bas ed pain medications.Recommendations of frequent repositioning, no lying flat so as not to exacerbate her acid reflux. Limit the fast greasy f oods in her diet. Push herself physically to work on exercises to get her moving post surgery. Almost 2 months post surgery. Back Pain Review of Systems Musculoskeletal: Positive for back pain. Objective Vital Signs 01/07/19 0916 Temp: 36.5 C (97.7 F) TempSrc: Temporal Weight: 92 kg There is no height or weight on file to calculate BMI. Physical Exam Nursing note reviewed. Constitutional: She appears well. She is active. No distress . HENT: Head: Atraumatic. Mouth/Throat: Mucous membranes are moist. Eyes: Conjunctivae are normal. Cardiovascular: Normal rate and regular rhythm. Pulses are s tyrone. Heart murmur not heard. Pulmonary/Chest: Effort normal and breath sounds cassy l. There is normal air entry. No respiratory distress. Air movement is not decrease d. She has no wheezes. Abdominal: Soft. Bowel sounds are normal. Musculoskeletal: She exhibits signs of injury. Surgical procedure done on right leg 2 months ago Neurological: She is alert. She has normal strength. Coordin ation and gait abnormal. Skin: Capillary refill takes less than 3 seconds. Skin is wa rm. Psychiatric: Her affect is blunt. She exhibits a depressed m ood. Hypochondria and perseveration over feared physical conditio ns. Vitals reviewed: Temperature 36.5 C (97.7 F), temperature so urce Temporal, weight 92 kg, last menstrual period 12/31/2018. progress on 2018-12 PROGRESS HNO ID: [id number] Normal 01-01-2019 [facility] Author: Belinda Barrett Jacobo ([id number]) Service: ? Author Type: Nurse Practitioner Type: Progress Notes Filed: 01/01/2019 9:48 AM Note Text: Lisset Shoemaker Gareth is a 18 year old female who presents for Nex planon removal for abnormal bleeding. UNIVERSAL PROTOCOL / SAFETY CHECKLIST Procedure to be performed: Nexplanon removal Sign in Communication: Completed Time Out: Team Confirms the Correct Patient, Correct Procedu re, Correct Site and Site Marking, Correct Position (if applicable), Pre p and Dry Time (if applicable). Time: 0834 Affirmation of Time Out: YES Sign Out Discussion: Completed TECHNIQUE: Patient placed in supine position with left arm bent at the elbow and placed over the head. Skin cleansed with betadine. 1.5mL of 1% lidocaine with epi injected subQ along insertion site. Scalpel used to made a 5mm stab incisi on superficially at distal end of Nexplanon. Device removed und er sterile technique with a small hemostat. Sterile pressure dressing a pplied. AANDP: 18 year old female here for implanon removal Nexplanon removed intact without difficulty. The patient was instructed to remove the dressing after 24 h ours. Contraceptive plans Depo Provera Belinda Barrett APRN.KIERA wills on 2019-01-01 CNOV Office Visit ([facility]) Normal 01-01-2019 [facility] LISSET CARREON ([id number]) [address] [facility] Date Time Provider Department ([id number]) 01/01/19 8:30 AM BELINDA BARRETT (KIERA) [facility] During your visit today, we recorded the following informati on about you: Blood pressure 108/68 Belinda Barrett APRN.KIERA 01/01/2019 9:48 AM Signed Lisset Carreon is a 18 year old female who presents for Nexplanon removal for abnormal bleeding. UNIVERSAL PROTOCOL / SAFETY CHECKLIST Procedure to be performed: Nexplanon removal Sign in Communication: Completed Time Out: Team Confirms the Correct Patient, Correct P rocedure, Correct Site and Site Marking, Correct Position (if applicable), Prep and Dry Time (if applicable). Time: 0834 Affirmation of Time Out: YES Sign Out Discussion: Completed TECHNIQUE: Patient placed in supine position with left arm bent a t the elbow and placed over the head. Skin cleansed with betadine. 1.5mL of 1% lidocaine with epi injected subQ along insertion site. Scalpel used to made a 5mm stab incision sup erficially at distal end of Nexplanon. Device removed under sterile technique with a small hemostat. Sterile pressure dressing applied. AANDP: 18 year old female here for implanon removal Nexplanon removed intact without difficulty. The patient was instructed to remove the dressing after 24 h ours. Contraceptive plans Depo Provera Belinda Barrett APRN.KIERA Referring Provider: SELF [200] Allergies As of Date: 01/01/2019 Noted Allergy Reaction PEANUTS 03/03/2012 10 - Anaphylaxis AMOXICILLIN 12/16/2018 4 - Hives CODEINE 03/03/2012 8 - GI Upset LACTOSE 03/03/2012 11 - Vomiting RED DYE 03/03/2012 11 - Vomiting Date Reviewed: 01/01/2019 Reviewed by: Cathleen Richter Ma - Fully Assessed Reason for Visit: nexplanon removal [Other] Primary Visit Diagnosis:Encounter for initial prescription o f injectable contraceptive [Z30.013] Other Visit Diagnosis:Nexplanon removal [Z30.46] Order(s):medroxyPROGESTERone 150 mg injection (DEPO-PROVERA) Disp: Rfl: Prescriptions as of 01/01/2019 Sig: RIVAROXABAN 10 MG TABLET Take 10 mg by mouth once nakul* MEDROXYPROGESTERONE 150 MG/ML* Inject 1 mL intramuscularly e * QVAR INHALATION Inhale as instructed. ALBUTEROL SULFATE HFA 90 MCG/* Inhale 2 Puffs as instructed. ALBUTEROL 90 MCG/ACTUATION AE* Inhale 2 Puffs as instructed * Problem List As Of Date 01/01/2019 Noted Resolved ADHD (attention deficit hyperactivity disorder)* Asthma [J45.909] Menometrorrhagia [N92.1] INVALID FOR*12/10/2013 Heavy menstrual bleeding [N92.0] INVALID FOR* Abnormal uterine bleeding [N93.9] INVALID FOR* Prescriptions ordered this encounter Disp Refills Start End MEDROXYPROGESTERONE 150 MG/ML INTRAM* 01/01/2019 12/03/2019 Route: INTRAMUSCULA Encounter Status:Closed by BELINDA BARRETT on 01/01/19 progress on 2018-11 PROGRESS HNO ID: [id number] Normal 12-16-2018 [facility] Author: Belinda (Rural Mail Carrier) Arnold Jacobo ([id number]) Service: ? Author Type: Nurse Practitioner Type: [...] with her for Nexplanon removal Belinda Barrett APRN.CNP cncurt on 2018-12-16 CNOV Office Visit ([facility]) Normal 12-16-2018 [facility] LISSET Cooney ([id number]) [address] [facility] Time Provider Department ([id number]) 12/16/18 3:15 PM BELINDA BARRETT (KIERA) [facility] During your visit today, we recorded [...] bring with her for Nexplanon removal Belinda Barrett, PROSPER.KIERA Referring Provider: SELF [200] Allergies As of Date: 12/16/2018 Noted Allergy Reaction PEANUTS 03/03/2012 10 - Anaphylaxis AMOXICILLIN 12/16/2018 4 - Hives CODEINE 03/03/2012 8 - GI Upset LACTOSE 03/03/2012 11 - Vomiting RED DYE 03/03/2012 11 - Vomiting Date Reviewed: 12/16/2018 Reviewed by: Belinda Delacruz) Arnold - Fully Assessed Reason for Visit: [...] BARRETT on 12/16/18 progress note on 09-11-02 Mechanical Assembler Patient ID: Lisset harrell is a 17 y.o. female. Her chief complaint(s) Normal 10-24-2018 [facility]' s Authentication include: ED Follow Up ([facility] ([id number]) Interface Message Text Assessment 1. Gastroesophageal reflux [...] pains a few weeks ago, seen at [facility]. Diagnosed with pleurisy. ruled out heart attack [...] her mouth in the mornings. Tried isaias seltzer heartburn chewables. Helps. Then lays d own then the pain happens. Lots of people in her family with reflux. Parents both have reflux. Seen at [facility] on 10/19. Prescribed reglan- helping some but makes her lightheaded. Tried zofran and didn't help. Urinating okay. Was constipated, now back to nor mal. No lower abdominal pain. She is accompanied by her mother. ED Follow Up The course is unchanging. The patient was discha rged 2 weeks ago. The patient was treated at [facility]. The discharge summary was not [...] Skin is warm. 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 female. Her chief complaint(s) Normal 10-08-2018 [facility]' s Authentication include: [facility] ([id number]) Interface Message Text Assessment 1. Patellar instability [...] She is alert. 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 female. Her chief complaint(s) Normal 06-05-2018 [facility] s Authentication include: [facility] ([id number]) Interface Message Text Assessment 1. Cough 2. [...] menstrual period 06/05/2018. 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 female. Her chief complaint(s) Normal 05-07-2018 [facility]' s Authentication include: Pharyngitis (needs new neb system, needs new epipen for school.) Hospital ([id number] ) Interface Message Text Assessment 1. Sore [...] She is alert. 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 female. Her chief complaint(s) Normal 03-03-2018 [facility]' s Authentication include: [facility] ([id number]) Interface Message Assessment Text 1. Acute medial [...] 89.4 kg. lipid panel on 2017 Cholesterol [Mass/Vol] 227 0-199 mg/dL Abnormal 018 [facility] ([id number]) Comment: Order Comment: Is this speci men being sent to an external lab?->No Result Comment: Desirable <200 mg/dL Borderline 200-239 mg/dL High Risk >239 mg/dL Performed By: #### LIPID ### # [address] [id number] Cholesterol in HDL [Mass/Vol] 43 mg/dL Normal 02-08-2018 [facility] ([id number]) Comment: Order Comment: Is this speci men being sent to an external lab?->No Result Comment: Male < 40mg/dL High Risk Female < 50mg/dL High Risk Male & Female > 60mg/dL Low Risk Performed By: #### LIPID ### # [address] [id number] Cholesterol in LDL 165 0-129 mg/dl High 02-08-2018 [facility] [Mass/Vol] ([id number]) Comment: Order Comment: Is this speci men being sent to an external lab?->No Result Comment: Desirable <130 mg/dL Borderline 130-159 mg/dL High Risk >159 mg/dl Performed By: #### LIPID ### # [address] [id number] Cholesterol in VLDL 19 mg/dl Normal 02-08-2018 [facility] [Mass/Vol] ([id number]) Comment: Order Comment: Is this speci men being sent to an external lab?->No Performed By: #### LIPID ### # [address] [id number] Triglyceride [Mass/Vol] 97 mg/dL Normal 2017 [facility] ([id number]) Comment: Order Comment: Is this speci men being sent to an external lab?->No Result Comment: Normal <150 mg/dl Borderline 150-199 mg/dl High 200-500 mg/dl Very High >500 mg/dl Result invalid if not a fast ing specimen. 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 female patient. Normal 02-07-2018 [facility] Behavioral/Emotional Assessment w Score - PHQ-9 [facility] ([id number]) Interface Message Performed by: KEYON ULRICH Text [...] Total Score: 6 Electronically signed by: Keyon Ulrich, COMMUNITY RESOURCE OFFICER Mechanical Assembler Patient ID: Lisset Almanzar julio cesar is a 17 y.o. female. Her chief complaint(s) Normal 02-07-2018 [facility] Authentication include: 17 YEAR [facility] ([id number]) Interface Message Assessment Text 1. Routine general medical examination at a health care [facility] lit 2. BMI (body mass index), pediatric, > 99% for age 3. Mild persistent asthma without complication 4. Mild asthma, unspecified whether complicated, unspecified whether persistent 5. Mild persistent asthma, unspecified whether complicated Plan Lisset was seen today for 17 year well child. 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 Drugs: She uses tobacco (use a vap. [...] [facility]19-2018 [facility] patient visit FRANCINE LEDBETTER Payers Payer Name Policy Number Location [facility] [place] ([place]) ([id number]) [id number] [facility] [facility] ([place]) ([id number]) The following information is from the original human readable contentNo Payer Records FoundNo Payer Records FoundNo Payer Records Found Summary Purpose Family History [...] BE BASED ON THE PRIMARY CLINICAL RECORDS. [facility] provides no warranty or guarantee of the accuracy or completeness of information in this document. UNRECOGNIZED CONTENT PROVIDED BELOW FOR UNRECOGNIZED SECTION INFORMATION SOURCE DATE CREATED AUTHOR AUTHOR'S ORGANIZATIO N 10/22/2018 [facility] ([place]) DATE CREATED AUTHOR AUTHOR'S ORGANIZATIO N 01/07/2019 [facility] DATE CREATED AUTHOR AUTHOR'S ORGANIZATIO N 01/18/2019 [facility] Avni vasquez
== END 2019-02-24 13:54 | disposition home or self-care (01) ==
PROVIDERS: Emergency Provider Emergency Medicine; Family Provider Pediatrics; PCP Pediatrics
DX: B37.2 Candidiasis of skin and nail (principal); K21.9 Gastro-esophageal reflux disease without esophagitis; J45.909 Unspecified asthma, uncomplicated; F32.9 Major depressive disorder, single episode, unspecified; Z79.899 Other long term (current) drug therapy
CPT/HCPCS: 99282

== ENCOUNTER 2021-03-12 20:28 | Emergency (ER) | payer OTHER, SELFPAY ==
[2021-03-12 20:28] VITALS: BP 123/94; PULSE 69; RESP 16; TEMP 36.2; O2SAT 100; BMI 31.5
--- NOTE | 2021-03-12 21:19 | RAD_ITS ---
HISTORY: neck pain EXAMINATION/TECHNIQUE: XR Spine Cervical 4 or 5 Views: AP, lateral, bilateral oblique and open mouth odontoid views COMPARISON: None FINDINGS: VERTEBRAE: Preserved vertebral body heights. No fracture or suspicious osseous lesion demonstrated. Adequate alignment of cervical spine. Partial straightening of cervical lordosis. No significant facet arthropathy. DISCS: Disc spaces are maintained. NECK SOFT TISSUES: No prevertebral soft tissue widening. LUNG APICES: Clear. RAD/Cerv Spine 4 or 5 Views IMPRESSION: No acute radiographic abnormality of cervical spine. at 2235 Reported and signed by: Sidney Emerson MD Electronically Signed: Sidney Emerson MD at 22:34 EDT Tel , Service support ,
--- NOTE | 2021-03-12 21:19 | RAD_ITS ---
HISTORY: shoulder pain EXAMINATION/TECHNIQUE: XR Shoulder Min 2 Views: AP neutral, internal rotation, external rotation and scapular Y views of left shoulder COMPARISON: None FINDINGS: SOFT TISSUES: No significant soft tissue swelling. BONES/JOINTS: No acute fracture or subluxation. Normal alignment. Preservation of the joint spaces. No suspicious osseous lesion or advanced degenerative changes. RAD/Shoulder min 2 Views IMPRESSION: Negative left shoulder. at 2233 Reported and signed by: Sidney Emerson MD Electronically Signed: Sidney Emerson MD at 22:32 EDT Tel , Service support ,
--- NOTE | 2021-03-12 21:58 | EX.ED.UPPERE ---
HPI History of Present Illness Chief Complaint: Upper Extremity Injury Informant: patient Occured/Mechanism Mechanism/Context: Yes injury Onset/Context/Timing Onset: Yesterday Context: Gradual Onset Timing: Continuous Quality of Pain: Sharp Current Severity: Mild Maximum Severity: Mild Associated Symptoms Associated Symptoms: Negative for Parasthesia, Weakness and Loss of Funtion Narrative Narrative: 20-year-old female past medical history of asthma and anxiety. 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 She is right-hand dominant. No a lot of lifting at work and feels pain in her left shoulder and back of her neck. No falls. No trauma. Says is worse with movement of her neck and her shoulder. Denies any fever or chills. No numbness or weakness. No prior neck or back surgery. No shoulder surgery. Patient is making this a Worker's Comp. claim. Prior similar symptoms: No Recent Illness/Hospitalization: No [facility] Medical History (Updated 03/12/21 @ 22:[address] Jozef Montero MD) Asthma Difficulty balancing SOB (shortness of breath) Home Medications omeprazole 20 mg PO DAILY 11/02/18 [History Last Taken 02/03/19] sertraline 12.5 mg PO DAILY 01/31/19 [History Last Taken 02/03/19] potassium chloride 20 meq PO DAILY #7 packet 02/05/19 [Rx Last Taken Unknown] cephalexin 500 mg PO Q6 #30 cap 02/24/19 [Rx Last Taken Unknown] clotrimazole 24 gm TP BID 7 Days cream..g. 02/24/19 [Rx Last Taken Unknown] sulfamethoxazole-trimethoprim 1 ea PO BID #14 tab 02/24/19 [Rx Last Taken Unknown] Allergy/AdvReac Type Severity Reaction Status Date / Time codeine Allergy Hives Verified 03/12/21 20:30 amoxicillin [Amoxicillin] AdvReac Nausea Verified 03/12/21 20:30 milk AdvReac Nausea Verified 03/12/21 20:30 NUTS Allergy Anaphylaxis Uncoded 03/12/21 20:30 Family History Grandfather Heart disease Grandmother Heart disease Mother Breast cancer Mitral valve prolapse Social History Smoking Status: Never smoker ROS ROS ED ROS Narrative Denies recent illness. Review of Systems ROS Unobtainable: Denies due to encephalopathy Constitutional Constitutional ED: Denies frequent falls Eyes Eyes: Denies change in vision ENT ENT ED: Denies ear pain or sore throat Cardiovascular Cardiovascular: Denies chest pain or palpitations Respiratory/Chest Respiratory/Chest: Denies cough or dyspnea Gastrointestinal Gastrointestinal: Denies abdominal pain, diarrhea, nausea or vomiting Genitourinary Genitourinary ED: Denies dysuria Musculoskeletal Musculoskeletal: Reports back pain and neck pain; Denies myalgias Integumentary Denies rash Neurologic Neurologic: Denies headache(s) Psychiatric Psychiatric: Denies depression Endocrine Endocrinology: Denies polyuria Hematologic/Lymphatic Hematologic/Lymphatic: Denies easy bruising Allergic/Immunologic Allergic/Immunologic ED: Denies urticaria EXAM Physical Exam Narrative Exam Narrative: Young female no acute distress. Vital signs stable afebrile. HEENT exam unremarkable. Neck tender along the left paracervical soft tissues consistent with myofascial strain and spasm. Trachea midline. Lungs clear to auscultation. Heart regular rhythm no murmur. Back tenderness over the left trapezius distribution consistent with myofascial strain and spasm. Mild left upper anterior chest wall tenderness again of the soft tissue. Abdomen soft nontender normal bowel sounds no peritoneal signs. Moving all 4 extremities. Neurovascular intact. She has pain with range of motion of left shoulder is not red or swollen. There is no bony deformity. Left elbow, forearm wrist and hand are nontender neurovascular intact with normal forensic psychologist strength. Normal radial pulse. Normal sensation. Normal range of motion. Neurologic exam normal. Const Vital Signs: 03/12/21 20:28 Temperature 97.2 F L Temperature Source Temporal Pulse Rate 69 Respiratory Rate 16 Blood Pressure 123/94 H Blood Pressure Mean 103 Pulse Ox 100 Oxygen Delivery Method Room Air Positive well nourished and well developed; Negative for obese, cachectic, contractures or unkempt General Appearance ED: well developed and NAD; Negative for unkempt, cachectic or contractures Nutritional Appearance: Negative for cachectic or obese HEENT normocephalic and atraumatic; Negative for trauma or tenderness Eyes PERRL and EOMs intact bilaterally Neck full ROM and supple Neck Narrative: Soft tissue tenderness in the left paracervical muscles consistent myofascial strain and spasm. General: tenderness Chest Wall inspection of chest normal; Negative for palpation of chest normal Chest Narrative: Mild left upper chest wall tenderness. Consistent with myofascial strain. Resp normal respiratory effort and clear to auscultation bilaterally Auscultation: Negative for rales, rhonchi or wheezes Cardio regular rate, regular rhythm, S1 normal heart sound, S2 normal heart sound and no murmurs GI non-tender, non-distended and no masses Auscultation: normoactive bowel sounds Palpation: soft; Negative for tender, guarding or rebound tenderness present Back/Spine no CVA tenderness Back/Spine Narrative: Tenderness of the paracervical soft tissues of the neck and trapezius distribution of the left upper back. Cervical Spine: Negative for cervical spine tenderness Thoracic Spine / Upper Back: Negative for thoracic spinal tenderness Lumbar Spine / Lower Back: Negative for lumbar spinal tenderness Extremity normal to inspection and full ROM General Extremety ED: Negative for edema General Extremity: Negative for edema Neuro oriented x3, CN's II-XII intact bilaterally, moves all extremities and no focal motor deficits Sensorium / Orientation: alert, oriented to person, oriented to place and oriented to time; Negative for orientation impaired, lethargic or stuporous Motor Exam: strength 5/5 throughout Psych mental status grossly normal Appearance: Negative for unkempt Attitude: No agitated Mood & Affect: Negative for depressed, anxious or tearful Skin Lesions: no lesions Rashes: no rashes Trauma: no lacerations or abrasions; Negative for abrasion MDM MDM MDM Narrative Medical decision making narrative: History and exam consistent with myofascial strain in the neck and shoulder. Treated with Motrin. Nursing protocol ordered x-rays which were negative. Radiography Diagnostic Testing: Left shoulder x-ray multiple views showed no acute abnormality interpreted by myself. Neck x-rays were negative. 3 views. Discharge Plan Triage Chief Complaint: Upper Extremity Injury ED Provider: Jozef Montero Dx/Rx/DC Orders Clinical Impression: Muscle strain, Muscle spasm, Encounter related to worker's compensation claim Instructions: ED Back Spasm, No Trauma Prescriptions: No Action omeprazole 20 MG Capsule.Dr 20 mg PO DAILY RF: 0 sertraline 25 MG tablet 12.5 mg PO DAILY RF: 0 potassium chloride 20 MEQ packet 20 meq PO DAILY Qty: 7 RF: 0 sulfamethoxazole-trimethoprim 1 EACH tablet 1 ea PO BID Qty: 14 RF: 0 cephalexin 500 MG capsule 500 mg PO Q6 Qty: 30 RF: 0 clotrimazole 12 GM cream 24 gm TP BID 7 Days RF: 1 Stand Alone Forms: ED Work / School Excuse Primary Care Provider: Care Physician,No Primary Referrals: Corporate,Care [GROUP OF PHYSICIANS] - 1 Week if not improving Care Physician,No Primary [Primary Care Provider] - Activity Restrictions/Additional Instructions: Hot shower and warm bath to relax the muscles of your neck and left upper back and shoulder. Motrin for pain and inflammation. Massage. This should progressively get better if not reevaluated. Disposition Disposition: Home, Self Care
[2021-03-12] MEDS: Ibuprofen 400 MG Tablet 800 MG PO (22:03)
[2021-03-12 22:07] VITALS: RESP 16
== END 2021-03-12 22:15 | disposition home or self-care (01) ==
PROVIDERS: Emergency Provider Emergency Medicine
DX: S16.1XXA Strain of muscle, fascia and tendon at neck level, initial encounter (principal); S46.912A Strain of unspecified muscle, fascia and tendon at shoulder and upper arm level, left arm, initial encounter; X58.XXXA Exposure to other specified factors, initial encounter
CPT/HCPCS: 72050; 73030; 99284

== ENCOUNTER 2021-05-10 22:01 | Emergency (ER) | payer SELFPAY ==
[2021-05-10 22:02] VITALS: BP 115/79; PULSE 102; RESP 16; TEMP 36.4; O2SAT 100; BMI 34.3
[2021-05-10 22:51] LABS: Red Blood Cells-Urine 0 SEEN /hpf (0-5)
--- NOTE | 2021-05-10 22:55 | ED.VIS.FEGU ---
HPI HPI - Female History of Present Illness Chief Complaint: Abd Pain Narrative Narrative: 20-year-old female A3 had a positive test 2 days ago. Patient states this was positive at about 2 minutes. Patient has never had a child and states she always miscarries. 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 Garcia on the of this month. Patient has intermittent pelvic cramping that she states feels like period cramps. She does not have any pain currently. She denies vaginal bleeding, loss of fluid. She denies vaginal discharge. She denies urinary frequency or dysuria. She is not had any fever. PFSH PFS Medical History Asthma Difficulty balancing SOB (shortness of breath) Home Medications NK 05/10/21 [History Last Taken Unknown] Allergy/AdvReac Type Severity Reaction Status Date / Time codeine Allergy Hives Verified 05/10/21 22:02 amoxicillin [Amoxicillin] AdvReac Nausea Verified 05/10/21 22:02 milk AdvReac Nausea Verified 05/10/21 22:02 NUTS Allergy Anaphylaxis Uncoded 05/10/21 22:02 Family History Grandfather Heart disease Grandmother Heart disease Mother Breast cancer Mitral valve prolapse Social History Smoking Status: Never smoker ROS ROS ED Constitutional Constitutional ED: Denies chills or fever(s) Eyes Eyes: Denies blurry vision or change in vision ENT ENT ED: Denies rhinorrhea Cardiovascular Cardiovascular: Denies chest pain or palpitations Respiratory/Chest Respiratory/Chest: Denies cough or dyspnea Gastrointestinal Gastrointestinal: Reports other Details: Intermittent pelvic cramping Genitourinary Genitourinary ED: Denies dysuria Musculoskeletal Musculoskeletal: Denies arthralgias or myalgias Integumentary Denies Abrasions or rash Neurologic Neurologic: Denies headache(s) or weakness Psychiatric Psychiatric: Denies anxiety or depression EXAM Physical Exam Const Vital Signs: 05/10/21 22:02 Temperature 97.5 F L Temperature Source Temporal Pulse Rate 102 H Respiratory Rate 16 Blood Pressure 115/79 Blood Pressure Mean 91 Pulse Ox 100 Oxygen Delivery Method Room Air Positive well nourished General Appearance ED: NAD; Negative for pallor HEENT Reports moist mucous membranes Negative for trauma Eyes PERRL and EOMs intact bilaterally Resp normal respiratory effort and clear to auscultation bilaterally Cardio regular rate and regular rhythm GI normal to inspection, nondistended, normoactive bowel sounds Neuro oriented x3 Sensorium / Orientation: alert Psych mental status grossly normal Skin no wounds General Skin Exam: Negative for jaundice or pallor MDM MDM MDM Narrative Medical decision making narrative: Patient presenting with intermittent cramping. She has no pain on examination. She has had no vaginal bleeding, loss of fluid, dysuria, hematuria. Urinalysis is negative for infection. There is a small amount of blood in urine. hCG is positive. I do not believe the patient needs further lab work or imaging as she is still early in and I have low concern for ectopic. Patient will follow up with Dr. Garcia for her REPAIRER EVAPORATOR needs. Impression: 1. First trimester Lab Data Attestation: I reviewed the patient's lab results. Labs: Laboratory Results - last 24 hr 05/10/21 22:15 Urine Color Yellow Urine Clarity Cloudy Urine pH 6.0 Ur Specific [place] 1.015 Urine Protein Negative Urine Glucose (UA) Normal Urine Ketones 15 H Urine Occult Blood 10 H Urine Nitrite Negative Urine Bilirubin Negative Urine Urobilinogen Normal Ur Leukocyte Esterase Negative Urine RBC 0 SEEN Urine WBC 0-5 SEEN Ur Squamous Epith Cells 0-5 SEEN Urine Bacteria 1+ Urine Mucus 1+ Urine Test Positive H Discharge Plan Triage Chief Complaint: Abd Pain ED Provider: Cali Valdez Dx/Rx/DC Orders Instructions: First Trimester Prescriptions: No Action NK RF: 0 Primary Care Provider: Care Physician,No Primary Referrals: Lawson Garcia MD [STAFF PHYSICIAN] - (As scheduled) Care Physician,No Primary [Primary Care Provider] - Disposition Disposition: Home, Self Care
[2021-05-10 23:04] LABS: Color, Urine Yellow (Yellow); Glucose, Dipstick Normal (Normal); Ketone-Dipstick 15 mg/dl (Negative); Leukocyte Esterase-Dipstick Negative /ul (Negative); Nitrite-Dipstick Negative (Negative); Occult Blood-Urine 10 /ul (Negative); Protein-Dipstick Negative (Negative); Specific Gravity, Urine 1.015 (1.002-1.030); Urine Bilirubin Dipstick Negative (Negative); Urine Clarity Cloudy (Clear); Urine Urobilinogen Normal (Normal)
[2021-05-10 23:09] LABS: Internal QC Validated? YES +Cl - CLEAR BKGD; Pregnancy, Urine Positive Negative
[2021-05-10 23:12] LABS: Bacteria 1+ /hpf (None Seen); Mucous, Urine 1+ /hpf (<or=2+); White Blood Cells 0-5 SEEN /hpf (0-5)
[2021-05-10 23:13] LABS: Squamous Epithelial Cells - UA 0-5 SEEN /hpf (5-10)
== END 2021-05-11 01:05 | disposition home or self-care (01) ==
PROVIDERS: Emergency Provider Student in an Organized Health Care Education/Training Program
DX: Z34.01 Encounter for supervision of normal first pregnancy, first trimester (principal)
CPT/HCPCS: 81001; 81025; 99283

== ENCOUNTER → 2021-05-16 11:29 | Outpatient (CLI) | payer SELFPAY ==
[2021-05-16 14:04] LABS: Absolute Lymphocyte Count 1.75 X10^3/uL (0.83-4.51); Absolute Neutrophil Count 5.2 X10^3/uL (2.0-7.7); Basophil# 0.07 X10^3/uL; Basophil% 0.9 % (0-1); Eosinophil# 0.15 X10^3/uL; Eosinophils% 1.9 % (0-5); Hematocrit 39.8 % (37-47); Hemoglobin 13.1 g/dL (12.0-15.0); Lymphocyte # 1.75 X10^3/ul (0.83-4.51); Lymphocyte % 21.7 % (19-41); Mean Corp Hgb Conc 32.9 g/dL (32-36); Mean Corpuscular Hgb 28.7 pg (27.0-32.0); Mean Corpuscular Volume 87.1 fL (81-99); Mean Platelet Vol. 9.3 fl (6.2-12.0); Monocyte# 0.85 X10^3/uL; Monocyte% 10.5 % (0-10); NRBC Flagged by Analyzer 0 % (0-5); Neutrophil # 5.21 X10^3/uL (2.7-7.7); Neutrophil % 64.5 % (47-70); Platelet Count 374 K/mm3 (150-450); RBC Distribution Width CV 12.1 % (11.6-14.6); RBC Distribution Width SD 38.5 fl (35.1-43.9); Red Blood Count 4.57 M/mm3 (4.2-5.4); White Blood Count 8.1 K/mm3 (4.4-11.0)
[2021-05-16 15:01] LABS: HIV - WCH Non-Reactive (Nonreactive); Hepatitis B Surface Antigen Non-Reactive (Nonreactive); Hepatitis C Antibody Non-Reactive (Nonreactive); Syphilis Antibodies Non-reactive
[2021-05-22 13:40] LABS: Gonococcus By Nucleic Acid AMP Negative (Negative)
[2021-05-22 13:42] LABS: Chlamydia By Nucleic Acid AMP Positive (Negative)
[2021-05-24 14:19] LABS: HPV Reflexed? NOT INDICATED
== END ==
LOC: WOBLAB 11:31
PROVIDERS: Visit Provider Obstetrics & Gynecology
DX: Z34.81 Encounter for supervision of other normal pregnancy, first trimester (principal)
CPT/HCPCS: 36415; 85025; 86703; 86762; 86780; 86803; 87086; 87088; 87340; 87491; 87591; 88175; G0145

== ENCOUNTER 2021-05-26 17:16 | Emergency (ER) | payer MEDICAID, SELFPAY ==
[2021-05-26 17:17] VITALS: BP 104/74; PULSE 67; RESP 18; TEMP 36.7; O2SAT 100; BMI 35.7
--- NOTE | 2021-05-26 19:31 | US_ITS ---
EXAM: US , Transvaginal CLINICAL INDICATION: 20 years old, Female; bleeding TECHNIQUE: Real-time transvaginal obstetrical ultrasound of the maternal pelvis and a first trimester with image documentation. Transvaginal imaging was used for better evaluation of the fetus and adnexa. This report was created using [employer] report generation technology. COMPARISON: None. FINDINGS: Gestation: Single viable intrauterine with [id number] length (CRL) of 1.36 cm. Estimated gestational age is 7 weeks and 4 days. Cardiac activity is seen with a rate of 147 beats per minute. Placenta/amniotic fluid: 1.1 x 0.9 x 0.9 cm subchorionic hemorrhage. Uterus/cervix: Unremarkable. No myometrial mass. Ovaries: Unremarkable. No mass. Free fluid: No free fluid. US/Transvaginal w/Preg US IMPRESSION: 1. Single viable intrauterine as described. 2. 1.1 x 0.9 x 0.9 cm subchorionic hemorrhage. Electronically Signed: Rosas Scott MD at 22:28 EST Tel , Service support ,
[2021-05-26 19:36] LABS: Bacteria 0 SEEN /hpf (None Seen); Red Blood Cells-Urine 0 SEEN /hpf (0-5)
[2021-05-26 19:39] LABS: Color, Urine Yellow (Yellow); Glucose, Dipstick Normal (Normal); Ketone-Dipstick 50 mg/dl (Negative); Leukocyte Esterase-Dipstick 25 /ul (Negative); Nitrite-Dipstick Negative (Negative); Occult Blood-Urine 50 /ul (Negative); Protein-Dipstick 15 mg/dl (Negative); Specific Gravity, Urine 1.025 (1.002-1.030); Urine Bilirubin Dipstick Negative (Negative); Urine Clarity Clear (Clear); Urine Urobilinogen Normal (Normal)
[2021-05-26 19:51] VITALS: RESP 18
[2021-05-26 19:51] LABS: Mucous, Urine 2+ /hpf (<or=2+); Squamous Epithelial Cells - UA 0-5 SEEN /hpf (5-10); White Blood Cells 0-5 SEEN /hpf (0-5)
[2021-05-26 20:11] LABS: Absolute Lymphocyte Count 2.62 X10^3/uL (0.83-4.51); Absolute Neutrophil Count 7.6 X10^3/uL (2.0-7.7); Basophil# 0.06 X10^3/uL; Basophil% 0.5 % (0-1); Eosinophil# 0.14 X10^3/uL; Eosinophils% 1.2 % (0-5); Hematocrit 42.1 % (37-47); Hemoglobin 13.8 g/dL (12.0-15.0); Lymphocyte # 2.62 X10^3/ul (0.83-4.51); Lymphocyte % 23.1 % (19-41); Mean Corp Hgb Conc 32.8 g/dL (32-36); Mean Corpuscular Hgb 28.4 pg (27.0-32.0); Mean Corpuscular Volume 86.6 fL (81-99); Mean Platelet Vol. 9.1 fl (6.2-12.0); Monocyte# 0.93 X10^3/uL; Monocyte% 8.2 % (0-10); NRBC Flagged by Analyzer 0 % (0-5); Neutrophil # 7.56 X10^3/uL (2.7-7.7); Neutrophil % 66.6 % (47-70); Platelet Count 322 K/mm3 (150-450); RBC Distribution Width CV 12.7 % (11.6-14.6); RBC Distribution Width SD 39.2 fl (35.1-43.9); Red Blood Count 4.86 M/mm3 (4.2-5.4); White Blood Count 11.4 K/mm3 (4.4-11.0)
[2021-05-26 20:22] LABS: Anion Gap 9 (5-15); BUN 10 mg/dL (7-18); Calcium,Total 9.7 mg/dL (8.5-10.1); Chloride 104 mmol/L (98-107); Creatinine, Serum 0.77 mg/dL (0.55-1.02); EST Glomerular Filtration Rate 101 mL/min (>60); Est Glom Filt Rate - Afr Amer 122 mL/min (>60); Estimated Creatinine Clearance 146.48 ml/min; Glucose 77 mg/dL (74-106); Potassium 3.5 mmol/L (3.5-5.1); Sodium Level 136 mmol/L (136-145)
--- NOTE | 2021-05-26 21:02 | ED.VIS.FEGU ---
HPI HPI - Female History of Present Illness Chief Complaint: Vag Bld, Preg Narrative Narrative: Patient is a G4, P0 at approximately 8 weeks gestation. She states that she presents with bleeding that began this afternoon/early evening. She states she was straining to go to the bathroom but could not have a bowel movement. She noticed a large amount of blood in the toilet. She is unsure if it was coming vaginally or from her rectum. She denies any chest pain or shortness of breath. She is now having mild abdominal cramping. She thinks her blood type is O, but not sure if she has positive or negative. She presents because she wants to make sure that everything is okay. [facility] Medical History (Updated 05/26/21 @ 21:28 by Wellington Holman MD) Asthma Difficulty balancing SOB (shortness of breath) Home Medications ondansetron [Zofran ODT] 4 mg PO Q8H PRN 05/26/21 [History Last Taken Unknown] Allergy/AdvReac Type Severity Reaction Status Date / Time codeine Allergy Hives Verified 05/10/21 22:02 amoxicillin [Amoxicillin] AdvReac Nausea Verified 05/10/21 22:02 milk AdvReac Nausea Verified 05/10/21 22:02 NUTS Allergy Anaphylaxis Uncoded 05/10/21 22:02 Family History Grandfather Heart disease Grandmother Heart disease Mother Breast cancer Mitral valve prolapse Social History Smoking Status: Never smoker ROS ROS ED ROS Narrative Constitutional: No fever, no chills. HEENT: No sore throat. No neck pain. No loss of vision. No rhinorrhea. Cardiovascular: No chest pain. No palpitations. No pedal edema. Respiratory: No cough, no shortness of breath. Abdominal: No abdominal pain. Lower abdominal cramping. No nausea. No vomiting. Questionable rectal bleeding versus vaginal. Genitourinary: No dysuria. No hematuria. Questionable vaginal bleeding Musculoskeletal: No myalgias. No arthralgias. Neurologic: No headaches. No dizziness. No lightheadedness. Skin: No rash. No change in color. Psychiatric: No depression. No anxiety. EXAM Physical Exam Narrative Exam Narrative: Afebrile. Vital signs noted. HEENT: Normocephalic. Atraumatic. PERRL, EOMI. Neck soft and supple. No point tenderness or step off. Cardiovascular: Regular rate and rhythm. No murmurs, rubs, or gallops appreciated. Respiratory: No tachypnea. Lungs clear to auscultation bilaterally. Gastrointestinal: Abdomen soft, nontender, with normoactive bowel sounds. No rebound or guarding. Neurological: Awake. Alert. Nonfocal, nonlateralizing. Skin: No rash. Normal color. No pallor. Musculoskeletal: No pedal edema. Full range of motion extremities. Const Vital Signs: 05/26/21 17:17 05/26/21 19:51 Temperature 98.1 F Temperature Source Temporal Pulse Rate 67 Respiratory Rate 18 18 Blood Pressure 104/74 Blood Pressure Mean 84 Pulse Ox 100 MDM MDM MDM Narrative Medical decision making narrative: Comprehensive work-up was pursued. She has a white count of slightly elevated at 11.4 which I think is nonspecific. Hemoglobin stable at 13.8. BMP is grossly unremarkable. Urinalysis shows 0-5 WBCs, no evidence of infection. Blood type is O-. Quantitative beta hCG is appropriately elevated well above 134,000. Her ultrasound preliminary report shows a small hemorrhage noted adjacent to the gestational sac measuring 1.1 x 0.9 x 0.9 cm. There does appear to be an intrauterine gestational sac with a yolk sac measuring 0.47 cm with approximate gestation of 8 weeks and 3 days. Cardiac activity is at 147 bpm. Lab Data Attestation: I reviewed the patient's lab results. Labs: Laboratory Results - last 24 hr 05/26/21 05/26/21 05/26/21 19:30 19:47 19:47 WBC 11.4 H RBC 4.86 Hgb 13.8 Hct 42.1 MCV 86.6 MCH 28.4 MCHC 32.8 RDW Std Deviation 39.2 RDW Coeff of Zulma 12.7 Plt Count 322 MPV 9.1 Immature Gran % (Auto) 0.400 Neut % (Auto) 66.6 Lymph % (Auto) 23.1 [place] % (Auto) 8.2 Eos % (Auto) 1.2 Baso % (Auto) 0.5 Absolute Neuts (auto) 7.6 Absolute Lymphs (auto) 2.62 Nucleated RBC % 0 Sodium 136 Potassium 3.5 Chloride 104 Carbon Dioxide 23.0 Anion Gap 9 BUN 10 Creatinine 0.77 Estim Creat Clear Calc 146.48 Est GFR (MDRD) Af Amer 122 Est GFR (MDRD) Non-Af 101 BUN/Creatinine Ratio 13.0 Glucose 77 Calcium 9.7 HCG, Quant Urine Color Yellow Urine Clarity Clear Urine pH 5.0 Ur Specific [place] 1.025 Urine Protein 15 H Urine Glucose (UA) Normal Urine Ketones 50 H Urine Occult Blood 50 H Urine Nitrite Negative Urine Bilirubin Negative Urine Urobilinogen Normal Ur Leukocyte Esterase 25 H Urine RBC 0 SEEN Urine WBC 0-5 SEEN Ur Squamous Epith Cells 0-5 SEEN Urine Bacteria 0 SEEN Urine Mucus 2+ Blood Type 05/26/21 05/26/21 19:47 19:47 WBC RBC Hgb Hct MCV MCH MCHC RDW Std Deviation RDW Coeff of Zulma Plt Count MPV Immature Gran % (Auto) Neut % (Auto) Lymph % (Auto) [place] % (Auto) Eos % (Auto) Baso % (Auto) Absolute Neuts (auto) Absolute Lymphs (auto) Nucleated RBC % Sodium Potassium Chloride Carbon Dioxide Anion Gap BUN Creatinine Estim Creat Clear Calc Est GFR (MDRD) Af Amer Est GFR (MDRD) Non-Af BUN/Creatinine Ratio Glucose Calcium HCG, Quant 314184 H Urine Color Urine Clarity Urine pH Ur Specific [place] Urine Protein Urine Glucose (UA) Urine Ketones Urine Occult Blood Urine Nitrite Urine Bilirubin Urine Urobilinogen Ur Leukocyte Esterase Urine RBC Urine WBC Ur Squamous Epith Cells Urine Bacteria Urine Mucus Blood Type O NEGATIVE Discharge Plan Triage Chief Complaint: Vag Bld, Preg ED Provider: Wellington Holman Dx/Rx/DC Orders Clinical Impression: First trimester , Rectal bleeding Instructions: Rh-Negative Screening, First Trimester, ED Lower GI Bleeding (Stable) Prescriptions: No Action ondansetron [Zofran ODT] 4 mg Tablet,Disintegrating 4 mg PO Q8H PRN (Reason: Nausea) RF: 0 Primary Care Provider: Care Physician,No Primary Referrals: Lawson Garcia MD [STAFF PHYSICIAN] - 06/02/21 Care Physician,No Primary [Primary Care Provider] - Disposition Disposition: Home, Self Care
[2021-05-26 21:34] VITALS: PULSE 70; RESP 18; O2SAT 97
== END 2021-05-26 21:35 | disposition home or self-care (01) ==
PROVIDERS: Emergency Provider Emergency Medicine
DX: O26.891 Other specified pregnancy related conditions, first trimester (principal); K62.5 Hemorrhage of anus and rectum; Z3A.08 8 weeks gestation of pregnancy; Z79.899 Other long term (current) drug therapy
CPT/HCPCS: 76817; 80048; 81001; 84702; 85025; 86900; 86901; 99283

== ENCOUNTER 2021-06-30 10:24 | Outpatient (CLI) | payer MEDICAID, SELFPAY ==
[2021-07-03 18:07] LABS: Chlamydia By Nucleic Acid AMP Negative (Negative)
[2021-07-03 18:41] LABS: Gonococcus By Nucleic Acid AMP Negative (Negative)
== END 2021-06-30 23:59 | disposition short-term general hospital (02) ==
LOC: LABSPEC 10:37
PROVIDERS: Visit Provider Obstetrics & Gynecology
DX: Z11.3 Encounter for screening for infections with a predominantly sexual mode of transmission (principal)
CPT/HCPCS: 87491; 87591

== ENCOUNTER 2021-09-26 08:43 | Outpatient (CLI) | payer MEDICAID, SELFPAY ==
[2021-09-26 10:06] LABS: Hematocrit 32.7 % (37-47); Hemoglobin 11.2 g/dL (12.0-15.0); Mean Corp Hgb Conc 34.3 g/dL (32-36); Mean Corpuscular Hgb 30.6 pg (27.0-32.0); Mean Corpuscular Volume 89.3 fL (81-99); Mean Platelet Vol. 9.4 fl (6.2-12.0); Platelet Count 235 K/mm3 (150-450); RBC Distribution Width CV 13.3 % (11.6-14.6); RBC Distribution Width SD 43.4 fl (35.1-43.9); Red Blood Count 3.66 M/mm3 (4.2-5.4); White Blood Count 8.6 K/mm3 (4.4-11.0)
[2021-09-26 10:17] LABS: Glucose Challenge Gest 1H 50g 139 mg/dL (70-140)
== END 2021-09-26 23:59 | disposition home or self-care (01) ==
LOC: WOBLAB 08:44
PROVIDERS: Visit Provider Obstetrics & Gynecology
DX: Z34.82 Encounter for supervision of other normal pregnancy, second trimester (principal)
CPT/HCPCS: 36415; 82950; 85027

== ENCOUNTER 2021-10-18 13:00 | Outpatient (CLI) | payer MEDICAID, SELFPAY ==
[2021-10-18 13:24] VITALS: BP 74/34; PULSE 75; TEMP 36.8; O2SAT 97
[2021-10-18 13:25] VITALS: BP 99/52; PULSE 77
[2021-10-18 13:29] VITALS: BMI 34.4
--- NOTE | 2021-10-25 09:43 | OB.TRI.HP_ITS ---
HPI - General HPI Narrative SAUD IRELAND, is a 20 F who presents to labor and delivery at 28 weeks 5 days gestation with some Sullivan Guzmán contractions and decreased movement during the day. Denies any leaking of fluid or bleeding. PFSH PFSH Medical History (Updated 10/25/21 @ 09:[address] Roass Cortes MD) Asthma Difficulty balancing SOB (shortness of breath) Home Medications ondansetron [Zofran ODT] 4 mg PO Q8H PRN 05/26/21 [History Last Taken Unknown] Allergy/AdvReac Type Severity Reaction Status Date / Time codeine Allergy Hives Verified 10/18/21 13:32 amoxicillin [Amoxicillin] AdvReac Nausea Verified 10/18/21 13:32 milk AdvReac Nausea Verified 10/18/21 13:32 NUTS Allergy Anaphylaxis Uncoded 10/18/21 13:32 Family History Grandfather Heart disease Grandmother Heart disease Mother Breast cancer Mitral valve prolapse Social History Smoking Status: Never smoker NST FHR Rate Baby A NST Reactive:: Appropriate for gestational age FHR Category:: Category I Uterine Activity:: No contractions noted. Assessment & Plan (1) Decreased movement: PLAN: Patient at 28 weeks 5 days gestation with decreased movement. Also some Sullivan Guzmán contractions which were not noted on monitor and diminished during the visit. heart tones were appropriate for gestational age and reassuring. Cervix was closed. Patient released to home with routine instructions. Instructed to increase oral water intake and instructed on normal movement at this stage of gestation.
== END 2021-10-18 13:55 | disposition home or self-care (01) ==
LOC: WPOUT 13:10 → WP 13:11
PROVIDERS: Visit Provider Obstetrics & Gynecology
DX: O36.8130 Decreased fetal movements, third trimester, not applicable or unspecified (principal); Z3A.28 28 weeks gestation of pregnancy
CPT/HCPCS: 59025; 59050; 99218; G0378

== ENCOUNTER → 2021-10-24 | Outpatient (CLI) | payer MEDICAID, SELFPAY | END | disposition home or self-care (01) | LOC: WOBLAB 09:52 | PROVIDERS: Visit Provider Obstetrics & Gynecology | DX: Z34.83 Encounter for supervision of other normal pregnancy, third trimester (principal) | CPT/HCPCS: 36415; 86850 ==

== ENCOUNTER 2021-11-03 17:55 | Outpatient (CLI) | payer MEDICAID, SELFPAY ==
[2021-11-03 18:17] VITALS: BMI 33.9
[2021-11-03] MEDS: Betamethasone/Betamethasone 30 MG/5 ML Vial 12 MG IM (18:44)
--- NOTE | 2021-11-04 08:45 | OB.TRI.HP_ITS ---
HPI - General HPI Narrative SAUD IRELAND, is a 20 F who presents for celestone injection #2 at 31 0/7 weeks gestation. She received injection at [facility] yesterday after finding of AC <10th% concerning for IUGR. Patient with hx hypochondroplasia. PFSH PFSH Medical History (Updated 11/21/21 @ 08:[address] Dulce Maria Wilkinson MD) Anxiety Asthma Difficulty balancing Gastric reflux Home Medications cetirizine [Zyrtec] 5 mg PO DAILY 11/03/21 [History Last Taken Unknown] [id number] [Prenatabs Rx] 1 tab PO DAILY 11/03/21 [History Last Taken 11/03/21 08:00 1 tab] Allergy/AdvReac Type Severity Reaction Status Date / Time codeine Allergy Hives Verified 11/16/21 15:09 Penicillins Allergy Hives Verified 11/16/21 15:09 amoxicillin [Amoxicillin] AdvReac Nausea Verified 11/16/21 15:09 milk AdvReac Nausea Verified 11/16/21 15:09 NUTS Allergy Anaphylaxis Uncoded 11/16/21 15:09 Family History Grandfather Heart disease Grandmother Heart disease Mother Breast cancer Mitral valve prolapse Surgical History (Updated 11/16/21 @ 15:14 by Daisy Garcia) History of knee surgery Social History Smoking Status: Never smoker Assessment & Plan (1) 31 weeks gestation of : COMMENT: OBDULIA 01/05/22 PLAN: Celestone #2 administered
== END 2021-11-03 18:45 | disposition home or self-care (01) ==
LOC: WPOUT 17:58 → WP 17:59
PROVIDERS: Referring Provider Obstetrics & Gynecology; Visit Provider Obstetrics & Gynecology
DX: Z23 Encounter for immunization (principal)
CPT/HCPCS: 96372; 99218; G0378; J0702

== ENCOUNTER → 2021-11-18 | Outpatient (CLI) | payer MEDICAID, SELFPAY | END | disposition home or self-care (01) | LOC: PAT 11-23 12:07 | PROVIDERS: Visit Provider Obstetrics & Gynecology | DX: Z00.00 Encounter for general adult medical examination without abnormal findings (principal) ==

== ENCOUNTER 2021-11-24 16:58 | Outpatient (CLI) | payer MEDICAID, SELFPAY ==
[2021-11-24 17:07] VITALS: BMI 34.1
--- NOTE | 2021-11-24 17:15 | PCM.HP.BLA ---
History and Physical Date of Admission: 11/24/21 HPI: 20-year-old at 34/0 weeks presenting with vaginal pain. Patient states it started yesterday reports sharp pain. Worse when she is on her feet for a longer amount of time. Persistent today. Also has some intermittent tightening of the upper abdomen. Denies leaking of fluid, vaginal bleeding. Reports movement. Reports some low back pain as well. complicated by: Patient with hypochondroplasia, history of chlamydia in with negative test of cure, plan for section for hypochondroplasia. Status post anesthesia consult. Received steroids on:_ Medical history: 1. Hypochondroplasia 2. Anxiety 3. Asthma Surgical history: 1. Right knee surgery in 2018 2. Appendectomy 2014 Medications: Allergies: Amoxicillin/penicillins causing hives or rash Red dye Tree nut Codeine Social history: Denies tobacco, alcohol, drug use Physical exam: Vitals: General: No acute distress comfortable in bed Cardiorespiratory: no Increased effort Abdomen: Soft, nontender, gravid Musculoskeletal: Sacral muscular tenderness, hypertonicity Extremity: No edema Cervical exam: Fingertip/thick/high, mid position heart rate: pending toco: pending A/P: 20-year-old at 34/0 weeks presenting with vaginal pain. -Does not appear to be in labor. Cervix fingertip. [place] thus far quiet. ?Plan to repeat check cervix in 2 hours ?UA sent ? Back pain likely musculoskeletal. Recommend belly band, massage, heat to area. ? Due to patient's hypochondroplasia and petite status and third trimester . Vaginal discomfort and back pain likely related to . We will rule out labor, however will likely need supportive care.
[2021-11-24 17:22] LABS: Bacteria 0 SEEN /hpf (None Seen); Mucous, Urine 0 SEEN /hpf (<or=2+); Red Blood Cells-Urine 0 SEEN /hpf (0-5); White Blood Cells 0 SEEN /hpf (0-5)
[2021-11-24 17:23] VITALS: BP 104/72; PULSE 90; PULSE 92; TEMP 36.6; O2SAT 97
[2021-11-24 17:28] LABS: Color, Urine Yellow (Yellow); Glucose, Dipstick Normal (Normal); Ketone-Dipstick Negative (Negative); Leukocyte Esterase-Dipstick Negative /ul (Negative); Nitrite-Dipstick Negative (Negative); Occult Blood-Urine Negative /ul (Negative); Protein-Dipstick Negative (Negative); Specific Gravity, Urine 1.005 (1.002-1.030); Urine Bilirubin Dipstick Negative (Negative); Urine Clarity Sl. Cloudy (Clear); Urine Urobilinogen Normal (Normal); Urine pH 6.5 (5.0 - 8.0)
[2021-11-24 17:32] VITALS: BMI 34.1
[2021-11-24 17:35] LABS: Squamous Epithelial Cells - UA 0-5 SEEN /hpf (5-10)
== END 2021-11-24 19:47 | disposition home or self-care (01) ==
LOC: WPOUT 17:00 → WP 17:00
PROVIDERS: Referring Provider Student in an Organized Health Care Education/Training Program; Visit Provider Student in an Organized Health Care Education/Training Program
DX: O26.893 Other specified pregnancy related conditions, third trimester (principal); R10.2 Pelvic and perineal pain; Z3A.34 34 weeks gestation of pregnancy
CPT/HCPCS: 59025; 59050; 81001; 99218; G0378

== ENCOUNTER → 2021-12-11 | Outpatient (CLI) | payer MEDICAID, SELFPAY | END | disposition home or self-care (01) | LOC: LABSPEC 10:09 | PROVIDERS: Visit Provider Obstetrics & Gynecology | DX: Z36.85 Encounter for antenatal screening for Streptococcus B (principal) | CPT/HCPCS: 87081 ==

== ENCOUNTER 2021-12-14 17:45 | Inpatient (IN) | payer MEDICAID, SELFPAY ==
[2021-12-14 18:38] VITALS: BMI 34.2
[2021-12-14 18:48] VITALS: PULSE 98; O2SAT 98
[2021-12-14 18:53] VITALS: PULSE 107; O2SAT 98
[2021-12-14 18:58] VITALS: PULSE 106; O2SAT 98
[2021-12-14 19:48] VITALS: BP 111/73; PULSE 77
[2021-12-14 19:56] LABS: Absolute Lymphocyte Count 1.87 X10^3/uL (0.83-4.51); Absolute Neutrophil Count 5.1 X10^3/uL (2.0-7.7); Basophil# 0.03 X10^3/uL; Basophil% 0.4 % (0-1); Eosinophil# 0.07 X10^3/uL; Eosinophils% 0.9 % (0-5); Hematocrit 30.9 % (37-47); Hemoglobin 10.4 g/dL (12.0-15.0); Lymphocyte # 1.87 X10^3/ul (0.83-4.51); Lymphocyte % 23.6 % (19-41); Mean Corp Hgb Conc 33.7 g/dL (32-36); Mean Corpuscular Hgb 30.1 pg (27.0-32.0); Mean Corpuscular Volume 89.3 fL (81-99); Mean Platelet Vol. 9.3 fl (6.2-12.0); Monocyte# 0.77 X10^3/uL; Monocyte% 9.7 % (0-10); NRBC Flagged by Analyzer 0 % (0-5); Neutrophil # 5.12 X10^3/uL (2.7-7.7); Neutrophil % 64.8 % (47-70); Platelet Count 210 K/mm3 (150-450); RBC Distribution Width CV 13.3 % (11.6-14.6); RBC Distribution Width SD 43.8 fl (35.1-43.9); Red Blood Count 3.46 M/mm3 (4.2-5.4); White Blood Count 7.9 K/mm3 (4.4-11.0)
--- NOTE | 2021-12-14 21:17 | HP.PCM.OB_ITS ---
History and Physical Date of Admission: 12/14/21 Chief complaint: IUGR History present illness: 20-year-old G4, P0 at 36 weeks and 6 days with OBDULIA 01/05/2022 by LMP arrives after being seen in the office diagnosed with IUGR with elevated cord Dopplers. Denies headache, nausea, vomiting, visual changes, chest pain, shortness of breath, right upper quadrant pain. Patient states good movement. is complicated by IUGR with elevated cord Dopplers, patient with hypochondroplasia Obstetric history: G1 through 3: SAB G4: Current Past medical history: Hypochondroplasia Medications: vitamin Past surgical history: Appendectomy, right knee surgery Allergies: Amoxicillin, codeine, penicillin Social history: Denies smoking, alcohol, drug use Family history: Denies history DVT or PE Review of systems: Besides above pertinent positives a full review of systems was performed and found to be negative Physical exam: Vital signs: Blood pressure 111/73 pulse 77 General: Normal-appearing no acute distress HEENT: Normocephalic/atraumatic no cervical lymphadenopathy Cardiac/respiratory: No successor muscles, nonlabored breathing Abdomen: Soft, nontender, gravid Extremities: No peripheral edema normal peripheral pulses Psych: Normal affect normal demeanor nonpressured speech Labs: White blood cell count 7.9 hemoglobin 10.4 hematocrit 30.9%, platelets 210 Assessment plan: 20-year-old G4, P0 at 36 weeks and 6 days with IUGR with elevated cord Dopplers for overnight monitoring tonight and primary section at 37 weeks for IUGR with elevated cord Dopplers along with patient's history of hypochondroplasia with an adequate pelvis per [facility] recommendation. Patient already status post Celestone.
[2021-12-14 23:48] VITALS: BP 110/75; PULSE 86
[2021-12-15] VITALS (30 sets, daily range): BP systolic 85–114; BP diastolic 44–76; PULSE 63–106; RESP 16; TEMP 36.2–36.6; O2SAT 95–100
[2021-12-15] MEDS: Lactated Ringers 1,000 ML 999 ML IV (05:36)
[2021-12-15] MEDS: Acetaminophen 500 MG Tablet 1000 MG PO ×3 (06:39→18:28)
[2021-12-15] MEDS: Sodium Citrate/Citric Acid 30 ML UDC PO (06:41)
[2021-12-15] MEDS: Lactated Ringers 1,000 ML 150 ML IV (06:41)
[2021-12-15] MEDS: Clindamycin 900 MG/50 ML BAG 75 MG IV (07:55)
--- NOTE | 2021-12-15 08:24 | EX.PCM.OBRPT ---
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 Normal uterus, tubes, and ovaries. Findings: Patient with IUGR with elevated cord Dopplers along with maternal hypochondroplasia with inadequate pelvis in need of primary low transverse section Via Pfannenstiel incision. Patient understands the risk of the procedure include but are not limited to visceral or vascular injury, prolonged hospitalization, blood loss need for transfusion, reoperation. Patient stated understanding and wished to proceed. All questions were answered and consent was signed. Procedure: Patient was brought back to the OR where epidural anesthesia was found to be adequate. Gentamicin and clindamycin were given for infection prophylaxis. Patient was prepared and draped in a supine position with leftward tilt. A Pfannenstiel incision was made at the skin with a scalpel. The incision was carried down to the fascia with a scalpel. The fascia was excised and extended laterally. Inferior aspect of the fascia was grasped with a clamp and the underlying rectus and pyramidalis muscle were dissected off sharply with Ho scissors. In a similar fashion the superior aspect of the fascia was grasped with a clamp and underlying rectus muscle was dissected off sharply. Rectus muscle was dissected at the midline down to the level of the pubic symphysis. Preperitoneal fatty tissue was noted and peritoneum was entered bluntly. Peritoneum was extended superiorly and inferiorly with good visualization of bladder. Bladder blade was inserted and vesicouterine peritoneum was identified. Low transverse hysterotomy was made. Hand was placed into the incision and gentle fundal pressure was applied once the head was brought into the incision and the bladder blade was removed. Head and shoulders were delivered with ease. Cord was cut and clamped. He was handed off to nursing. Placenta was delivered via cord traction and fundal massage. IV oxytocin was initiated in order to facilitate uterine contractions. Uterus was exteriorized and wiped out with dry laparotomy sponge in order to remove remaining placental membranes. Uterus was closed in a continuous running fashion. Good hemostasis was noted. Uterus was placed back into the abdominal cavity and reinspected and good hemostasis was noted. Fascia was closed in a continuous running fashion. Subcutaneous irrigation was performed, good hemostasis was noted. Skin was closed in a subcuticular fashion. All counts were correct x2. Patient tolerated the procedure well and was brought to recovery in a stable condition.
[2021-12-15] MEDS: Oxytocin 30 units/NS 500 ml 30 UNITS/500 ML IV.SOLN 167 UNITS IV (08:56)
[2021-12-15] MEDS: 0.9% Saline Lock 10 ML Syringe IV (09:09)
[2021-12-15] MEDS: Ketorolac 30 MG/ML Syringe IV ×3 (09:09→21:30)
--- NOTE | 2021-12-15 10:45 | NURSING ---
Epidural catheter removed at this time. Blue tip intact. Dressing placed over epidural insertion area. Patient tolerated without complaint of discomfort.
[2021-12-15] MEDS: Ondansetron 4 MG/2 ML Vial IV (12:46)
[2021-12-15] MEDS: Lactated Ringers 1,000 ML 100 ML IV (12:46)
[2021-12-15] MEDS: Lactated Ringers 500 ML 999 ML IV ×2 (14:56→19:56)
[2021-12-15] MEDS: Enoxaparin 40 MG/0.4 ML Syringe SC (21:30)
[2021-12-16 00:35] VITALS: BP 99/62; PULSE 71; RESP 16; TEMP 36.6; O2SAT 97
[2021-12-16 04:15] VITALS: BP 92/52; PULSE 64; RESP 18; TEMP 36.4; O2SAT 97
[2021-12-16] MEDS: Ketorolac 30 MG/ML Syringe IV (04:34)
[2021-12-16] MEDS: 0.9% Saline Lock 10 ML Syringe IV (04:35)
[2021-12-16 05:02] LABS: Hematocrit 27.1 % (37-47); Hemoglobin 8.8 g/dL (12.0-15.0); Mean Corp Hgb Conc 32.5 g/dL (32-36); Mean Corpuscular Hgb 30.1 pg (27.0-32.0); Mean Corpuscular Volume 92.8 fL (81-99); Mean Platelet Vol. 8.9 fl (6.2-12.0); Platelet Count 167 K/mm3 (150-450); RBC Distribution Width CV 13.3 % (11.6-14.6); RBC Distribution Width SD 45.3 fl (35.1-43.9); Red Blood Count 2.92 M/mm3 (4.2-5.4); White Blood Count 9.9 K/mm3 (4.4-11.0)
[2021-12-16] MEDS: Acetaminophen 500 MG Tablet 1000 MG PO ×3 (07:37→19:49)
[2021-12-16 08:50] VITALS: BP 98/63; PULSE 75; RESP 16; TEMP 36.5; O2SAT 96
[2021-12-16] MEDS: Ibuprofen 600 MG Tablet PO ×3 (10:17→23:21)
--- NOTE | 2021-12-16 10:17 | PN.OBGYN_ITS ---
Subjective Subjective Patient without complaints. Tolerating diet well now. Denies flatus yet. Breast-feeding going well but baby having some issues latching. Wants to stay until tomorrow. Objective Data Objective Data Good urine output. Hemoglobin stable. Minimal vaginal bleeding reported. Wound is clean, dry, intact with Mepilex dressing covering. Vital Signs: Vital Signs Temp Pulse Resp BP Pulse Ox 97.7 F L 75 16 98/63 96 12/16/21 08:50 12/16/21 08:50 12/16/21 08:50 12/16/21 08:50 12/16/21 08:50 Oxygen Delivery Method Room Air Weight: 169 lb 8.568 oz Body Mass Index (BMI) 34.2 Intake & Output: Intake and Output for Last 24 Hours 12/14/21 12/15/21 12/16/21 23:59 23:59 23:59 Intake Total 3457.045 / 3457.045 783.33 / 783.33 Output Total 1050 / 1050 1150 / 1150 Balance 2407.045 / 2407.045 -366.67 / -366.67 Lab / Micro Data Result Diagrams: 12/16/21 04:55 Labs: Laboratory Results - last 24 hr 12/16/21 04:55: WBC 9.9, RBC 2.92 L, Hgb 8.8 L, Hct 27.1 L, MCV 92.8, MCH 30.1, MCHC 32.5, RDW Std Deviation 45.3 H, RDW Coeff of Zulma 13.3, Plt Count 167, MPV 8.9 Micro: Microbiology 12/14/21 20:15 Nasal Secretion SARS-CoV-2 Antigen (Rapid) - Final Assessment & Plan (1) Delivery by section: PLAN: Plan Doing well post operative day #1 status post primary section for in trauterine growth restriction. Continuing present care.
[2021-12-16] MEDS: Enoxaparin 40 MG/0.4 ML Syringe SC (10:22)
[2021-12-16] MEDS: Senna/Docusate Sodium 1 Tablet PO (10:22)
--- NOTE | 2021-12-16 13:40 | CASEMGMT ---
Addendum entered by Gissell Owusu 12/16/21 16:55: MOB had also mentioned during assessment that she liked the [facility]. Addendum entered by Gissell Owusu 12/16/21 14:31: RN also told this worker that MOB is overall doing good and has been appropriate. Original Note: Social Work Assessment Reason for Referral: Anxiety, Depression, Resources Date of Referral: 12/15/2021 MOB: Lisset Simpson G/P: G4, P1 PNC: [facility] Control: Pt states not anything right now. Pt states she wants to get her body back. Pt states that she has been looking in non hormonal/implant control. Pt mentioned IUD. Baby: Girl Named Sylvia : 12/15/[birth year]21 Apgars: 8/9 Weight: 2235 Electrical And Radio Aircraft Mechanic: Zeny KAUR plans on MOB's other children: None. MOB states this baby is her first child. Housing: Pt states no concerns. Pt lives with her mother Bertha. Transportation: Pt states she has access to transportation Supplies: Pt states she has all baby supplies for the baby. Supports: Pt states that her and mom are good support for her. Pt states that she will be a stay at home mom and her mom and will be taking turns helping her. Pt's mom states that she and pt's will take shifts helping her. Education Level: Pt states she graduated from high school. Pt states that she went to the [employer] for [employer]. 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 Pt states she has no financial concerns. Agency Involvement: Pt states that her has food stamps and she is on his. Pt state that he is also involved with [place] and [facility]. Pt states that she has a Head Boys Tennis Coach Sara through [facility] that comes out to her house 1x a week. Pt denied any CPS or legal involvement. MOB Mental Health Hx: Pt states that she has history of Anxiety and Depression. Pt states that she is not on any medications. Pt states that she gets chest pain with her Anxiety. Pt states that she has suffered from Depression. Pt states that when she was 13 she was suicidal and had a plan of action. Pt states she has not had any suicidal thoughts or depression since she was 13. Pt denied any current suicidal/homicidal thoughts. Pt states that she is not currently seeing a counselor. Pt states that she was seeing Dr. Cotter at [facility]. Pt states that she has also been to [facility]. Per chart, pt has Anxiety, Depression, Bipolar and multiple personality. MOB AOD History: Pt states none. Denied any use during . FOB: Ashok Time Together: MOB states 4 years Involved at : MOB states FOB will be involved with baby, MOB states I hope he is. Employment: MOB states MYRTLE works at [employer]. Other children: MOB reports that this baby is also FOB first baby. FOB Mental Health Hx: MOB states FOrick has Multiple Personality Disorder. MOB states she is not aware pt is on any medications. MOB states that MYRTLE is trying to get into [facility] but Jason is taking a while to approve it. MOB denies any concerns and denies any Domestic Violence concerns. MOB states she feels safe at home. SW educated on Shaken Baby, PPD, and Safe Sleeping. Pt voiced understanding. SW provided pt with resources on Shaken Baby, PPD, and Safe Sleeping. Pt denied additional needs or concerns at this time. Plan: Home with support from and mom Gissell Velásquezes AUTOMATION MACHINE BUILDER, VP [employer]
[2021-12-16 14:00] VITALS: BP 103/66; PULSE 69; RESP 16; TEMP 36.5
[2021-12-16 20:03] VITALS: BP 102/63; PULSE 63; RESP 16; TEMP 36.5; O2SAT 98
[2021-12-17] MEDS: Acetaminophen 500 MG Tablet 1000 MG PO ×3 (02:18→14:10)
[2021-12-17 02:25] VITALS: BP 107/79; PULSE 59; RESP 16; TEMP 36.5; O2SAT 98
[2021-12-17] MEDS: Ibuprofen 600 MG Tablet PO ×2 (05:47→12:15)
[2021-12-17 08:04] VITALS: BP 121/79; PULSE 88; RESP 16; TEMP 36.8
--- NOTE | 2021-12-17 08:10 | NURSING ---
bruising noted above mepilex dresssing on lower abdomen upon assessment
--- NOTE | 2021-12-17 09:53 | PCM.PN.OB ---
Subjective Subjective Patient without complaints. Tolerating diet well. Positive flatus and BM. Breast-feeding going well. Wants to go home today. Objective Data Objective Data Vital Signs: Vital Signs Temp Pulse Resp BP Pulse Ox 98.2 F 88 16 121/79 H 98 12/17/21 08:04 12/17/21 08:04 12/17/21 08:04 12/17/21 08:04 12/17/21 02:25 Oxygen Delivery Method Room Air Weight: 169 lb 8.568 oz Body Mass Index (BMI) 34.2 Intake & Output: Intake and Output for Last 24 Hours 12/15/21 12/16/21 12/17/21 23:59 23:59 23:59 Intake Total 3457.045 / 3457.045 783.33 / 783.33 Output Total 1050 / 1050 1150 / 1150 Balance 2407.045 / 2407.045 -366.67 / -366.67 Lab / Micro Data Result Diagrams: 12/16/21 04:55 Micro: Microbiology 12/14/21 20:15 Nasal Secretion SARS-CoV-2 Antigen (Rapid) - Final Assessment & Plan (1) Delivery by section: PLAN: Plan Doing well postoperative day #2 status post section. Will discharge to home with routine instructions.
--- NOTE | 2021-12-17 09:55 | DCINST_ITS ---
Discharge Instructions Diet Discharge Diet: No restrictions Activity May resume sexual activity in: 4-6 weeks Lifting Restrictions: 20 pounds Additional Activity Instructions:: Nothing in the vagina for 4 weeks please; no lifting more than 20-25 lbs for 6 weeks. Use Ibuprophen 800 mg orally every 8 hours as needed for pain. Can also add Tylenol 1000 mg every 8 hours if needed for pain. If Ibuprophen and Tylenol are not effective then use the Oxycodone but keep in mind it can cause serious constipation issues. Drink lots of water. Call if bleeding more than a pad per hour. Use the colace as constipation is a big issue after this type of surgery. Steps and walking are OK. Activity is encouraged but do not over do it !! Dressing / Incision Call your doctor if your incision/area has: Continuous Slow Oozing, Sudden Increased Bleeding, Increased Pain/ Swelling, Increased Redness and Foul Smelling Discharge Call your doctor if you observe: Fever of 101 or Higher, Inability to urinate, Inability to have a bowel movement and Using more than 1 pad per hour Follow Up Care Please Follow Up With: Lawson Garcia MD When: Call [phone] for appointment to be seen in 2 weeks. Test Results: Test results from this visit will be discussed in further detail at your follow- up appointment, if applicable. Discharge Plan Admission Admit Date/Time: 12/14/21 17:45 Primary Reason for Your Visit: Section Attending Provider: Lawson Garcia Primary Care Provider: Luigi Loco,Selam Primary Discharge Orders/Prescriptions Prescriptions: New docusate sodium 100 mg tablet 100 mg PO BID PRN (Reason: constipation) Qty: 60 1RF oxycodone 5 mg capsule 5 mg PO Q6H PRN (Reason: pain (scale score 7-10)) 7 Days Qty: 10 0RF Continued cetirizine 5 mg Tablet 5 mg PO DAILY Prenatabs Rx 29 mg iron- 1 mg Tablet 1 tab PO DAILY Referrals / Follow Up: Care Physician,No Primary [Primary Care Provider] - Disposition Disposition (needs filled in before D/C Order can be placed): Home, Self Care
[2021-12-17] MEDS: Senna/Docusate Sodium 1 Tablet PO (10:10)
[2021-12-17] MEDS: Enoxaparin 40 MG/0.4 ML Syringe SC (10:10)
[2021-12-17 13:58] VITALS: BP 111/76; PULSE 78; RESP 16; TEMP 36.6; O2SAT 97
--- NOTE | 2021-12-17 16:41 | PCM.DC.BLA ---
Discharge Summary Date of Admission: 12/14/21 Date of Discharge: 12/17/21 Summary: Patient arrived on 12/14/2021 for overnight admit with IUGR with elevated cord Dopplers found in office. 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 Patient with routine postoperative recovery and discharged home on 12/17/2021. Meaningful Use Info Meaningful Use Diagnoses (Choose all that apply): None applicable Discharge Plan Admission Admit Date/Time: 12/14/21 17:45 Primary Reason for Your Visit: Section Attending Provider: Lawson Garcia Primary Care Provider: Luigi Physician,Selam Primary Instructions Patient Instructions: After a Discharge Orders/Prescriptions Prescriptions: New docusate sodium 100 mg tablet 100 mg PO BID PRN (Reason: constipation) Qty: 60 1RF oxycodone 5 mg capsule 5 mg PO Q6H PRN (Reason: pain (scale score 7-10)) 7 Days Qty: 10 0RF Continued cetirizine 5 mg Tablet 5 mg PO DAILY Prenatabs Rx 29 mg iron- 1 mg Tablet 1 tab PO DAILY Referrals / Follow Up: Care Physician,No Primary [Primary Care Provider] - Disposition Disposition (needs filled in before D/C Order can be placed): Home, Self Care
== END 2021-12-17 14:30 | disposition home or self-care (01) | DRG 540 ==
PROVIDERS: Admitting Provider Obstetrics & Gynecology; Referring Provider Obstetrics & Gynecology; Visit Provider Obstetrics & Gynecology
PROC: 10D00Z1 Extraction of Products of Conception, Low, Open Approach (ICD-10-PCS; CPT 59514; principal; 2021-12-15 07:15)
DX: O36.5930 Maternal care for other known or suspected poor fetal growth, third trimester, not applicable or unspecified (principal); Q77.4 Achondroplasia; O99.892 Other specified diseases and conditions complicating childbirth; Z20.822 Contact with and (suspected) exposure to COVID-19; Z3A.36 36 weeks gestation of pregnancy; Z37.0 Single live birth
CPT/HCPCS: 59025; 59050; 85025; 85027; 86850; 86900; 86901; 87081; 87811; 99218; 99251; J7120; A4216; G0378; G0463; J2405

== ENCOUNTER 2021-12-27 21:10 | Emergency (ER) | payer MEDICAID, SELFPAY ==
[2021-12-27 21:11] VITALS: BP 117/86; PULSE 62; RESP 15; TEMP 36.3; O2SAT 98; BMI 31.8
--- NOTE | 2021-12-27 21:44 | US_ITS ---
INDICATION: vag bleeding with clots, post , c section December 15 EXAMINATION: US Pelvis Non-OB Complete TECHNIQUE: Transabdominal pelvic ultrasound was performed. Grayscale, spectral waveform, and color flow Doppler evaluation of the adnexa. COMPARISON: Pelvic ultrasound from 05/26/2021. FINDINGS: Uterus measures 9.5 x 6.1 x 8.8 cm. Small amount of fluid within endometrial cavity. Endometrial stripe measures 6 mm diameter. No discrete endometrial lesion or myometrial mass demonstrated. Unremarkable cervix. No adnexal mass or significant free pelvic fluid. Bilateral ovaries are normal size with no larger complexes. Normal bilateral ovarian color Doppler flow and waveforms demonstrated. Right ovary measures 3.9 x 2 x 2.5 cm and left ovary 2.6 x 1.2 x 2 cm. US/Pelvic (Non ) IMPRESSION: Small amount of fluid within endometrial cavity. No discrete endometrial or uterine mass demonstrated. Mild nonvisualized retained products of conception not excluded. Electronically Signed: Sidney Emerson MD at 22:41 EDT ,
[2021-12-27] MEDS: Ketorolac 15 MG/ML Vial IV (21:55)
[2021-12-27 22:01] LABS: Absolute Lymphocyte Count 2.77 X10^3/uL (0.83-4.51); Absolute Neutrophil Count 5.1 X10^3/uL (2.0-7.7); Basophil# 0.06 X10^3/uL; Basophil% 0.7 % (0-1); Eosinophil# 0.23 X10^3/uL; Eosinophils% 2.6 % (0-5); Hematocrit 37.3 % (37-47); Hemoglobin 11.9 g/dL (12.0-15.0); Lymphocyte # 2.77 X10^3/ul (0.83-4.51); Lymphocyte % 31.4 % (19-41); Mean Corp Hgb Conc 31.9 g/dL (32-36); Mean Corpuscular Hgb 28.9 pg (27.0-32.0); Mean Corpuscular Volume 90.5 fL (81-99); Mean Platelet Vol. 8.8 fl (6.2-12.0); Monocyte# 0.61 X10^3/uL; Monocyte% 6.9 % (0-10); NRBC Flagged by Analyzer 0 % (0-5); Neutrophil # 5.09 X10^3/uL (2.7-7.7); Neutrophil % 57.7 % (47-70); Platelet Count 375 K/mm3 (150-450); RBC Distribution Width CV 12.5 % (11.6-14.6); RBC Distribution Width SD 41.9 fl (35.1-43.9); Red Blood Count 4.12 M/mm3 (4.2-5.4); White Blood Count 8.8 K/mm3 (4.4-11.0)
--- NOTE | 2021-12-27 22:04 | ED.VIS.GI ---
HPI HPI - GI History of Present Illness Chief Complaint: Abd Pain Informant: patient Narrative Narrative: 12-day by by Dr. Garcia. . Hospitalized 3 days. Persistent vaginal bleeding since up to 5 pads a day with clots. She has had 3 today. States follow-up was not for 6 weeks. She has been in touch with the office with nursing. States he twisted wrong the day felt a tear in the right incisional area. He is taking Tylenol. Denies history of gastric ulcers or kidney injury. Denies fevers. No anticoagulation medications. PFSH PFSH Medical History Anxiety Asthma Chlamydia infection affecting Difficulty balancing Family history of hearing loss at age younger than 7 years Gastric reflux Infertility Home Medications docusate sodium 100 mg tablet 100 mg PO BID PRN constipation #60 tabs 12/17/21 [Rx Last Taken Unknown] oxycodone 5 mg capsule 5 mg PO Q6H PRN pain (scale score 7-10) 7 days #10 caps 12/17/21 [Rx Last Taken Unknown] ibuprofen 600 mg tablet 600 mg PO 4X/DAY PRN Pain Or Fever #20 tabs 12/27/21 [Rx Last Taken Unknown] Allergy/AdvReac Type Severity Reaction Status Date / Time codeine Allergy Nausea Verified 12/27/21 21:11 Penicillins Allergy Hives Verified 12/27/21 21:11 amoxicillin [Amoxicillin] AdvReac Hives Verified 12/27/21 21:11 NUTS Allergy Anaphylaxis Uncoded 12/27/21 21:11 Family History Grandfather Heart disease Grandmother Heart disease Mother Breast cancer Mitral valve prolapse Surgical History Delivery by section History of knee surgery Social History Smoking Status: Never smoker ROS ROS ED Constitutional Constitutional ED: Denies chills, fever(s) or sweats Eyes Eyes: Denies change in vision ENT ENT ED: Denies dysphagia or sore throat Cardiovascular Cardiovascular: Denies chest pain, leg edema, palpitations or racing heartbeat Respiratory/Chest Respiratory/Chest: Denies cough, dyspnea or dyspnea on exertion Gastrointestinal Gastrointestinal: Reports abdominal pain; Denies diarrhea, nausea or vomiting Genitourinary Genitourinary ED: Reports other Details: Vaginal bleeding ; Denies dysuria, hematuria or urinary frequency Musculoskeletal Musculoskeletal: Denies back pain, extremity pain or neck pain Integumentary Denies rash or wounds Neurologic Neurologic: Denies headache(s), paresthesias or weakness EXAM Physical Exam Const Vital Signs: 12/27/21 21:11 Temperature 97.3 F L Temperature Source Temporal Pulse Rate 62 Respiratory Rate 15 Blood Pressure 117/86 H Blood Pressure Mean 96 Pulse Ox 98 Oxygen Delivery Method Room Air Positive well nourished and well developed General Appearance ED: well developed and NAD HEENT Reports moist mucous membranes normocephalic and atraumatic Eyes PERRL, EOMs intact bilaterally and conjunctivae normal General Eye ED: Yes normal appearance of both eyes Neck no lymphadenopathy and supple General: Negative for tenderness Chest Wall Chest: Negative for tenderness Resp normal respiratory effort and normal air movement Effort and Inspection: symmetric chest movement; Negative for respiratory distress Cardio regular rate, regular rhythm and no murmurs Peripheral Pulses: pulses 2+ throughout GI normal to inspection, nondistended, normoactive bowel sounds GI Narrative: Suprapubic horizontal dressing clean, dry intact. No guarding or rebound. Palpation: Negative for guarding or rebound tenderness present Back/Spine no CVA tenderness and no thoracic nor lumbar tenderness Extremity normal to inspection General Extremety ED: Negative for edema or tenderness General Extremity: Negative for edema Neuro oriented x3 and no sensory deficits noted Sensorium / Orientation: awake and alert Skin no rashes or lesions noted and no wounds MDM MDM MDM Narrative Medical decision making narrative: Patient presents for vaginal bleeding pain and states pain with twisting today. Labs obtained hemoglobin currently 11.9 history of Toradol. Pelvic ultrasound rule out products of conception. Hemoglobin 11.9. Ultrasound small amount of fluid in the endometrial cavity no discrete retained products of conception noted. Discussed findings with the patient. Pain improved with Toradol. Prescription for NSAIDs she will monitor her vaginal bleeding follow-up with her OB. Return precautions. All questions were answered. Lab Data Attestation: I reviewed the patient's lab results. Labs: Laboratory Results - last 24 hr 12/27/21 21:30 WBC 8.8 RBC 4.12 L Hgb 11.9 L Hct 37.3 MCV 90.5 MCH 28.9 MCHC 31.9 L RDW Std Deviation 41.9 RDW Coeff of Zulma 12.5 Plt Count 375 MPV 8.8 Immature Gran % (Auto) 0.700 Neut % (Auto) 57.7 Lymph % (Auto) 31.4 [place] % (Auto) 6.9 Eos % (Auto) 2.6 Baso % (Auto) 0.7 Absolute Neuts (auto) 5.1 Absolute Lymphs (auto) 2.77 Nucleated RBC % 0 Radiography Diagnostic Testing: Clinical Impression(s) from Imaging Studies Pelvis Ultrasound 12/27/21 21:44 IMPRESSION: Small amount of fluid within endometrial cavity. No discrete endometrial or uterine mass demonstrated. Mild nonvisualized retained products of conception not excluded. Electronically Signed: Sidney Emerson MD at 22:41 EDT , Discharge Plan Triage Chief Complaint: Abd Pain ED Provider: Jose D Main Dx/Rx/DC Orders Clinical Impression: bleeding, S/P Instructions: After a , Hemorrhage Prescriptions: New ibuprofen 600 MG tablet 600 mg PO 4X/DAY PRN (Reason: Pain Or Fever) Qty: 20 0RF No Action docusate sodium 100 mg tablet 100 mg PO BID PRN (Reason: constipation) Qty: 60 1RF oxycodone 5 mg capsule 5 mg PO Q6H PRN (Reason: pain (scale score 7-10)) 7 Days Qty: 10 0RF Primary Care Provider: Care Physician,No Primary Referrals: Lawson Garcia MD [STAFF PHYSICIAN] - 3-5 Days Care Physician,No Primary [Primary Care Provider] - Activity Restrictions/Additional Instructions: Hemoglobin 11.9. Vaginal ultrasound with no findings of products of conception. Monitor bleeding. Use ibuprofen. Follow-up with your OB. Disposition Disposition: Home, Self Care Discharge Date/Time: 12/27/21 23:22
== END 2021-12-27 23:22 | disposition home or self-care (01) ==
PROVIDERS: Emergency Provider Emergency Medicine; Visit Provider Emergency Medicine
DX: O72.1 Other immediate postpartum hemorrhage (principal); Z3A.00 Weeks of gestation of pregnancy not specified
CPT/HCPCS: 76856; 85025; 96374; 99283; A4216

== ENCOUNTER → 2022-02-14 | Outpatient (CLI) | payer MEDICAID, SELFPAY ==
[2022-02-19 09:07] LABS: Almond <0.10 kU/L (Class 0); Brazil Nut <0.10 kU/L (Class 0); Cashew <0.10 kU/L (Class 0); Hazelnut/Filbert <0.10 kU/L (Class 0); Pecan <0.10 kU/L (Class 0)
[2022-02-20 18:18] LABS: Peanut <0.10 kU/L (Class 0); Walnut, (Food) <0.10 kU/L (Class 0)
== END | disposition home or self-care (01) ==
LOC: LAB 09:19
PROVIDERS: Visit Provider Otolaryngology Otolaryngology/Facial Plastic Surgery
DX: T78.40XA Allergy, unspecified, initial encounter (principal)
CPT/HCPCS: 36415; 86003

== ENCOUNTER 2022-05-24 16:16 | Emergency (ER) | payer MEDICAID, SELFPAY ==
[2022-05-24 16:18] VITALS: BP 110/78; PULSE 66; RESP 16; TEMP 36.8; O2SAT 100; BMI 33.8
[2022-05-24 18:09] LABS: Absolute Lymphocyte Count 2.15 X10^3/uL (0.83-4.51); Absolute Neutrophil Count 3.4 X10^3/uL (2.0-7.7); Basophil# 0.05 X10^3/uL; Basophil% 0.8 % (0-1); Eosinophil# 0.17 X10^3/uL; Eosinophils% 2.8 % (0-5); Hematocrit 41.7 % (37-47); Hemoglobin 13.2 g/dL (12.0-15.0); Lymphocyte # 2.15 X10^3/ul (0.83-4.51); Lymphocyte % 34.8 % (19-41); Mean Corp Hgb Conc 31.7 g/dL (32-36); Mean Corpuscular Hgb 27.8 pg (27.0-32.0); Mean Corpuscular Volume 87.8 fL (81-99); Mean Platelet Vol. 8.9 fl (6.2-12.0); Monocyte# 0.42 X10^3/uL; Monocyte% 6.8 % (0-10); NRBC Flagged by Analyzer 0 % (0-5); Neutrophil # 3.36 X10^3/uL (2.7-7.7); Neutrophil % 54.5 % (47-70); Platelet Count 340 K/mm3 (150-450); RBC Distribution Width CV 12.8 % (11.6-14.6); RBC Distribution Width SD 41.2 fl (35.1-43.9); Red Blood Count 4.75 M/mm3 (4.2-5.4); White Blood Count 6.2 K/mm3 (4.4-11.0)
[2022-05-24 18:20] VITALS: PULSE 63; O2SAT 100
[2022-05-24 18:25] LABS: Anion Gap 3 (5-15); BUN 13 mg/dL (7-18); BUN/Creat Ratio 15.7 RATIO (10-20); Calcium,Total 9.4 mg/dL (8.5-10.1); Chloride 104 mmol/L (98-107); Creatinine, Serum 0.83 mg/dL (0.55-1.02); EST Glomerular Filtration Rate 91 mL/min (>60); Est Glom Filt Rate - Afr Amer 110 mL/min (>60); Estimated Creatinine Clearance 127.56 ml/min; Glucose 109 mg/dL (74-106); Potassium 4.2 mmol/L (3.5-5.1); Sodium Level 136 mmol/L (136-145)
[2022-05-24 18:57] LABS: Internal QC Validated? YES +Cl - CLEAR BKGD; Pregnancy, Serum, hCG Quali. NEGATIVE Negative
--- NOTE | 2022-05-24 19:03 | EX.ED.VIS.HA ---
HPI History of Present Illness Chief Complaint: Headache Informant: patient Onset/Context/Timing Onset: Days (4) Context: Gradual Timing: Continuous Quality -Headache: Positive for Throbbing Location: Generalized Worsened by: Lights, loud noises Relieved by: Nothing Associated Symptoms/Injury Associated Symptoms: Positive for Nausea, Vomiting, Blurred Vision and Photophobia; Negative for Fever, Sore Throat, Sinus Pressure, Numbness, Tingling, Preceding Aura, Visual Changes or Visual Loss Narrative Narrative: Patient presents with a headache that has been constant for the last 4 days. Patient describes it as throbbing. Patient states it is all over. Patient states it is worse with lights and loud noises. Patient states nothing seems to help with it. Patient mitts to some blurred vision and photophobia. Patient admits to some nausea and vomiting. Patient denies any fevers or chills. Patient denies any scotoma or auras. Patient denies any paresthesias or weakness. Patient states she has never had headaches like this in the past. [facility] Medical History Anxiety Asthma Chlamydia infection affecting Difficulty balancing Family history of hearing loss at age younger than 7 years Gastric reflux Infertility Home Medications NK 05/24/22 [History Last Taken Unknown] Allergy/AdvReac Type Severity Reaction Status Date / Time codeine Allergy Nausea Verified 05/24/22 16:18 Penicillins Allergy Hives Verified 05/24/22 16:18 amoxicillin [Amoxicillin] AdvReac Hives Verified 05/24/22 16:18 Family History Grandfather Heart disease Grandmother Heart disease Mother Breast cancer Mitral valve prolapse Surgical History Delivery by section History of knee surgery Social History Smoking Status: Never smoker ROS ROS ED Constitutional Constitutional ED: Denies chills or fever(s) Eyes Eyes: Denies blurry vision or change in vision ENT ENT ED: Denies rhinorrhea or sore throat Cardiovascular Cardiovascular: Reports chest pain; Denies palpitations Respiratory/Chest Respiratory/Chest: Denies cough or dyspnea Gastrointestinal Gastrointestinal: Reports nausea and vomiting Genitourinary Genitourinary ED: Denies dysuria or hematuria Musculoskeletal Musculoskeletal: Denies back pain or neck pain Integumentary Denies abscess or rash Neurologic Neurologic: Reports headache(s); Denies weakness Psychiatric Psychiatric: Reports anxiety; Denies suicidal ideation or suicidal thoughts Allergic/Immunologic Allergic/Immunologic ED: Denies mouth swelling or urticaria EXAM Physical Exam Const Vital Signs: 05/24/22 16:18 05/24/22 18:20 Temperature 98.2 F Temperature Source Temporal Pulse Rate 66 63 Respiratory Rate 16 Blood Pressure 110/78 Blood Pressure Mean 88 Pulse Ox 100 100 Oxygen Delivery Method Room Air Room Air Positive well nourished and well developed General Appearance ED: well developed HEENT Reports moist mucous membranes Neck supple and no JVD Resp normal respiratory effort and clear to auscultation bilaterally Cardio regular rate, regular rhythm and no murmurs GI normal to inspection, nondistended, normoactive bowel sounds and non-tender Palpation: soft Extremity normal to inspection General Extremety ED: Negative for edema or tenderness General Extremity: Negative for edema Neuro oriented x3, CN's II-XII intact bilaterally and no sensory deficits noted Sensorium / Orientation: alert Motor Exam: strength 5/5 throughout Psych mental status grossly normal Skin no rashes or lesions noted MDM MDM MDM Narrative Medical decision making narrative: Patient was given IV fluids. Patient was given Reglan and Benadryl. CBC was within normal limits. Basic metabolic profile was within normal limits. Serum hCG was negative. Urinalysis does not show any evidence of urinary tract infection or hematuria. CT scan of the brain was obtained. There is no acute intracranial abnormality. This was interpreted by the radiologist and reviewed by myself. Patient is feeling better on reevaluation. Patient states her headache is almost completely resolved. Patient was instructed to rest in a dark quiet room. Patient was instructed to follow-up with her primary care physician in 5 to 7 days. Patient understood and was agreeable with the plan. All questions were answered. Lab Data Attestation: I reviewed the patient's lab results. Labs: Laboratory Results - last 24 hr 05/24/22 05/24/22 05/24/22 17:58 17:58 17:58 WBC 6.2 RBC 4.75 Hgb 13.2 Hct 41.7 MCV 87.8 MCH 27.8 MCHC 31.7 L RDW Std Deviation 41.2 RDW Coeff of Zulma 12.8 Plt Count 340 MPV 8.9 Immature Gran % (Auto) 0.300 Neut % (Auto) 54.5 Lymph % (Auto) 34.8 [place] % (Auto) 6.8 Eos % (Auto) 2.8 Baso % (Auto) 0.8 Absolute Neuts (auto) 3.4 Absolute Lymphs (auto) 2.15 Nucleated RBC % 0 Sodium 136 Potassium 4.2 Chloride 104 Carbon Dioxide 29.0 Anion Gap 3 L BUN 13 Creatinine 0.83 Estim Creat Clear Calc 127.56 Est GFR (MDRD) Af Amer 110 Est GFR (MDRD) Non-Af 91 BUN/Creatinine Ratio 15.7 Glucose 109 H Calcium 9.4 Serum , Qual NEGATIVE Urine Color Urine Clarity Urine pH Ur Specific [place] Urine Protein Urine Glucose (UA) Urine Ketones Urine Occult Blood Urine Nitrite Urine Bilirubin Urine Urobilinogen Ur Leukocyte Esterase Urine RBC Urine WBC Ur Squamous Epith Cells Urine Bacteria Urine Mucus 05/24/22 19:16 WBC RBC Hgb Hct MCV MCH MCHC RDW Std Deviation RDW Coeff of Zulma Plt Count MPV Immature Gran % (Auto) Neut % (Auto) Lymph % (Auto) [place] % (Auto) Eos % (Auto) Baso % (Auto) Absolute Neuts (auto) Absolute Lymphs (auto) Nucleated RBC % Sodium Potassium Chloride Carbon Dioxide Anion Gap BUN Creatinine Estim Creat Clear Calc Est GFR (MDRD) Af Amer Est GFR (MDRD) Non-Af BUN/Creatinine Ratio Glucose Calcium Serum , Qual Urine Color Yellow Urine Clarity Clear Urine pH 7.0 Ur Specific [place] 1.010 Urine Protein 15 H Urine Glucose (UA) Normal Urine Ketones Negative Urine Occult Blood 250 H Urine Nitrite Negative Urine Bilirubin Negative Urine Urobilinogen Normal Ur Leukocyte Esterase 25 H Urine RBC 0-5 SEEN Urine WBC 0-5 SEEN Ur Squamous Epith Cells 5-10 SEEN Urine Bacteria 0 SEEN Urine Mucus 0 SEEN Radiography Diagnostic Testing: Clinical Impression(s) from Imaging Studies Brain CT 05/24/22 19:09 IMPRESSION: Normal unenhanced CT scan of the brain. Electronically Signed: Alan Mcbride MD at 20:15 EST Reading Location ID and State: [facility] / [place] , Service support , Discharge Plan Triage Chief Complaint: Headache ED Provider: Jayce Connolly Dx/Rx/DC Orders Clinical Impression: Headache Instructions: ED Headache Unspecified Prescriptions: No Action NK Stand Alone Forms: ED Work / School Excuse Primary Care Provider: Care Physician,No Primary Referrals: Care Physician,No Primary [Primary Care Provider] - Disposition Disposition: Home, Self Care
--- NOTE | 2022-05-24 19:03 | CM.ED ---
SW Note Referral Source: Case Find Referral Reason: No Primary Care Physician (PCP) SW reviewed chart and noted that patient has no PCP. SW provided patient with list of [facility] and [facility] Physician List for reference. SW also provided patient with handout ?Where to go When?. No other issues or concerns voiced at this time. SW remains available for any additional needs. Plan: Provided patient with PCP information Jennifer AMIN
--- NOTE | 2022-05-24 19:09 | CT_ITS ---
STUDY: CT BRAIN WITHOUT CONTRAST REASON FOR EXAM: Female, 21 years old. Pain RADIATION DOSAGE (If Supplied By Facility): CTDIvol = ( 44.99 ) mGy, DLP = ( 711.75 ) mGycm TECHNIQUE: Transaxial CT imaging of the brain was performed without administration of intravenous contrast material. Individualized dose optimization techniques were used for this CT. COMPARISON: No relevant priors. FINDINGS: Normal soft tissue structures. Normal calvarium. Normal size ventricles and extra-axial spaces for the patient''s age. Normal white matter tracts of the cerebral hemispheres. Normal basal ganglia and thalami. Normal brainstem. Normal cerebellum. There is no intracranial hemorrhage. There are no findings of an acute ischemic infarction. Normal visualized paranasal sinuses. CT/Brain/Head without Contrast IMPRESSION: Normal unenhanced CT scan of the brain. Electronically Signed: Alan Mcbride MD at 20:15 EST ,
[2022-05-24 19:22] LABS: Bacteria 0 SEEN /hpf (None Seen); Mucous, Urine 0 SEEN /hpf (<or=2+)
[2022-05-24 19:24] LABS: Color, Urine Yellow (Yellow); Glucose, Dipstick Normal (Normal); Ketone-Dipstick Negative (Negative); Leukocyte Esterase-Dipstick 25 /ul (Negative); Nitrite-Dipstick Negative (Negative); Occult Blood-Urine 250 /ul (Negative); Protein-Dipstick 15 mg/dl (Negative); Urine Bilirubin Dipstick Negative (Negative); Urine Clarity Clear (Clear); Urine Urobilinogen Normal (Normal)
[2022-05-24 19:29] LABS: Red Blood Cells-Urine 0-5 SEEN /hpf (0-5); Squamous Epithelial Cells - UA 5-10 SEEN /hpf (5-10); White Blood Cells 0-5 SEEN /hpf (0-5)
[2022-05-24] MEDS: DiphenhydrAMINE 50 MG/ML Syringe 25 MG IV (19:38)
[2022-05-24] MEDS: 0.9% Normal Saline 1,000 ML 999 ML IV (19:38)
[2022-05-24] MEDS: Metoclopramide 10 MG/2 ML Vial IV (19:40)
[2022-05-24 21:31] VITALS: RESP 18
== END 2022-05-24 21:31 | disposition home or self-care (01) ==
PROVIDERS: Emergency Provider Emergency Medicine; Visit Provider Emergency Medicine
DX: R51.9 Headache, unspecified (principal); R11.2 Nausea with vomiting, unspecified; J45.909 Unspecified asthma, uncomplicated; R07.9 Chest pain, unspecified
CPT/HCPCS: 70450; 80048; 81001; 84703; 85025; 96361; 96374; 96375; 99282; J7030; A4216

== ENCOUNTER 2022-08-31 08:46 | Emergency (ER) | payer MEDICAID, SELFPAY ==
[2022-08-31 08:47] VITALS: BP 107/66; PULSE 100; RESP 18; TEMP 36.9; O2SAT 96; BMI 34.5
[2022-08-31 09:26] LABS: Bacteria 0 SEEN /hpf (None Seen); Mucous, Urine 0 SEEN /hpf (<or=2+); Red Blood Cells-Urine 0 SEEN /hpf (0-5); White Blood Cells 0 SEEN /hpf (0-5)
[2022-08-31 09:49] LABS: Internal QC Validated? YES +Cl - CLEAR BKGD
[2022-08-31 09:51] LABS: Color, Urine Yellow (Yellow); Glucose, Dipstick Normal (Normal); Ketone-Dipstick Negative (Negative); Leukocyte Esterase-Dipstick Negative /ul (Negative); Nitrite-Dipstick Negative (Negative); Occult Blood-Urine Negative /ul (Negative); Protein-Dipstick Negative (Negative); Urine Bilirubin Dipstick Negative (Negative); Urine Clarity Clear (Clear); Urine Urobilinogen Normal (Normal)
[2022-08-31 09:52] LABS: Pregnancy, Urine Positive Negative
[2022-08-31 09:57] LABS: Squamous Epithelial Cells - UA 0-5 SEEN /hpf (5-10)
--- NOTE | 2022-08-31 10:12 | EX.ED.DYSGE1 ---
HPI History of Present Illness Chief Complaint: Abd Pain Informant: patient and spouse/S.O. Narrative Narrative: G6, P1 8 months presenting today progressive lower pelvic pain over 2 weeks. Home positive x2 a week ago. She is followed by KISHAN Decker. She had difficulties getting previously, she had a . Reports she was told if she got again she would be high risk. She has been having increasing pain in the right pelvic area. Denies vaginal bleeding or any discharge. Denies vomiting. She called her OB office when she is however appointment not till later. Denies urinary symptoms. Denies fevers. PFSH PFS Medical History Anxiety Asthma Chlamydia infection affecting Difficulty balancing Family history of hearing loss at age younger than 7 years Gastric reflux Infertility Home Medications NK 05/24/22 [History Last Taken Unknown] Allergy/AdvReac Type Severity Reaction Status Date / Time codeine Allergy Nausea Verified 08/31/22 08:50 Penicillins Allergy Hives Verified 08/31/22 08:50 amoxicillin [Amoxicillin] AdvReac Hives Verified 08/31/22 08:50 Family History Grandfather Heart disease Grandmother Heart disease Mother Breast cancer Mitral valve prolapse Surgical History Delivery by section History of knee surgery Social History Smoking Status: Never smoker ROS ROS ED Constitutional Constitutional ED: Denies chills, fever(s) or sweats Eyes Eyes: Denies change in vision ENT ENT ED: Denies dysphagia or sore throat Cardiovascular Cardiovascular: Denies chest pain, leg edema, palpitations or racing heartbeat Respiratory/Chest Respiratory/Chest: Denies cough, dyspnea or dyspnea on exertion Gastrointestinal Gastrointestinal: Denies abdominal pain, diarrhea, nausea or vomiting Genitourinary Genitourinary ED: Reports other Details: Pelvic pain ; Denies dysuria, hematuria or urinary frequency Musculoskeletal Musculoskeletal: Denies back pain, extremity pain or neck pain Integumentary Denies rash or wounds Neurologic Neurologic: Denies headache(s), paresthesias or weakness EXAM Physical Exam Const Vital Signs: 08/31/22 08:47 Temperature 98.5 F Temperature Source Temporal Pulse Rate 100 Respiratory Rate 18 Blood Pressure 107/66 Blood Pressure Mean 79 Pulse Ox 96 Oxygen Delivery Method Room Air Positive well nourished and well developed General Appearance ED: well developed and NAD HEENT Reports moist mucous membranes normocephalic and atraumatic Eyes PERRL, EOMs intact bilaterally and conjunctivae normal General Eye ED: Yes normal appearance of both eyes Neck no lymphadenopathy and supple General: Negative for tenderness Chest Wall Chest: Negative for tenderness Resp normal respiratory effort and normal air movement Effort and Inspection: symmetric chest movement; Negative for respiratory distress Cardio regular rate, regular rhythm and no murmurs Peripheral Pulses: pulses 2+ throughout GI normal to inspection, nondistended, normoactive bowel sounds and non-tender Palpation: Negative for guarding or rebound tenderness present Narrative: Tenderness right pelvic region there is no guarding or rebound Back/Spine no CVA tenderness and no thoracic nor lumbar tenderness Extremity normal to inspection General Extremety ED: Negative for edema or tenderness General Extremity: Negative for edema Neuro oriented x3 and no sensory deficits noted Sensorium / Orientation: awake and alert Skin no rashes or lesions noted and no wounds MDM MDM MDM Narrative Medical decision making narrative: Interventions / MDM: Differential diagnosis: , ectopic , ovarian cyst Diagnosis considered but do not suspect: N/A My EKG interpretation: N/A Imaging independently reviewed and interpreted by myself: Transvaginal ultrasound per radiology 5-week 6-day intrauterine from yolk sac no current heart tones at this time. External documents reviewed: N/A Test considered but not ordered:N/A ED course: Patient had progressive pelvic pain positive home . Urine positive for infection UA negative. hCG 23 570, ultrasound obtained intrauterine she is reassured. She will use Tylenol as needed. She will follow-up with her OB team due to reported high risk . She will start vitamins. All questions were answered. Re-evaluation: stable Disposition discussed with patient/family/significant other: Patient and significant other Case discussed with consulting clinician: N/A Lab Data Attestation: I reviewed the patient's lab results. Labs: Laboratory Results - last 24 hr 08/31/22 08/31/22 09:20 09:30 HCG, Quant [id number] H Urine Color Yellow Urine Clarity Clear Urine pH 7.0 Ur Specific [place] 1.010 Urine Protein Negative Urine Glucose (UA) Normal Urine Ketones Negative Urine Occult Blood Negative Urine Nitrite Negative Urine Bilirubin Negative Urine Urobilinogen Normal Ur Leukocyte Esterase Negative Urine RBC 0 SEEN Urine WBC 0 SEEN Ur Squamous Epith Cells 0-5 SEEN Urine Bacteria 0 SEEN Urine Mucus 0 SEEN Urine Test Positive H Radiography Diagnostic Testing: Clinical Impression(s) from Imaging Studies Obstetrics Ultrasound 08/31/22 10:15 IMPRESSION: Intrauterine gestational sac with mean gestational age of 5 weeks and 6 days. No pole is seen at this time. Follow-up is recommended. Electronically Signed: Clarke Montalvo MD at 12:41 EST , Discharge Plan Triage Chief Complaint: Abd Pain ED Provider: Jose D Main Dx/Rx/DC Orders Clinical Impression: First trimester , Pelvic pain Instructions: 1st Trimester Prescriptions: No Action NK Primary Care Provider: Care Physician,No Primary Referrals: Sherin Decker CNM [Med Staff - Adv Practice Prof] - 1 Week Care Physician,No Primary [Primary Care Provider] - Activity Restrictions/Additional Instructions: hcg 64439 and hCG, ultrasound 5 weeks 6-day with pole. Start vitamins, follow-up with your OB team. May use Tylenol as needed. Disposition Disposition: Home, Self Care Discharge Date/Time: 08/31/22 13:26
--- NOTE | 2022-08-31 10:15 | US_ITS ---
STUDY: FIRST TRIMESTER OBSTETRICAL ULTRASOUND REASON FOR EXAM: Female, 21 years old pelvic pain -- r/o ectopic LMP: July 19, 2022. TECHNIQUE: Transabdominal and Transvaginal TECHNICAL QUALITY: Adequate. PRIOR ULTRASOUND: None. FINDINGS: There is visualization of a single gestational sac in a normal intrauterine position. The mean sac diameter (MSD) measures 1.1 cm, indicating an estimated gestational age (EGA) of 5 weeks, 6 days. The gestational sac shape is within normal limits. There is a visualized yolk sac. The yolk sac measures 2 mm. The placenta is non-visualized. There is no demonstrated embryo ( pole). The estimated gestation age (EGA) by LMP is 6 weeks, 1 days. The estimated date of delivery (OBDULIA) by LMP is April 25, 2023. The estimated gestation age (EGA) by US is 5 weeks, 6 days. The estimated date of delivery (OBDULIA) by US is April 27, 2023. The uterus measures 9.9 cm x 6.2 cm x 6 cm. There is no demonstrated uterine fibroid. The cervix is closed. The right ovary measures 3.4 cm x 3.3 cm x 2.1 cm. There is no right ovarian cyst. There is no visualized right adnexal mass or complex lesion. The left ovary measures 3 cm x 2.3 cm x 1.7 cm. There is no left ovarian cyst. There is no visualized left adnexal mass or complex lesion. There is no fluid in the cul de sac. US/Transvaginal w/Preg US IMPRESSION: Intrauterine gestational sac with mean gestational age of 5 weeks and 6 days. No pole is seen at this time. Follow-up is recommended. Electronically Signed: Clarke Montalvo MD at 12:41 EST ,
[2022-08-31 10:41] LABS: hCG Titer Quant., Serum 23570 mIU/mL (1-3)
--- NOTE | 2022-08-31 12:34 | ED.RN ---
called u/s to inquire about results.
== END 2022-08-31 13:26 | disposition home or self-care (01) ==
PROVIDERS: Emergency Provider Emergency Medicine; Visit Provider Emergency Medicine
DX: O26.891 Other specified pregnancy related conditions, first trimester (principal); R10.2 Pelvic and perineal pain; Z3A.01 Less than 8 weeks gestation of pregnancy
CPT/HCPCS: 76817; 81001; 81025; 84702; 99283; J7030; A4216

== ENCOUNTER 2023-01-16 20:45 | Outpatient (CLI) | payer MEDICAID, SELFPAY ==
[2023-01-16 20:59] VITALS: PULSE 92; O2SAT 97
[2023-01-16 21:04] VITALS: BP 105/60; PULSE 90
[2023-01-16 21:06] VITALS: BMI 33.7
[2023-01-16 21:19] LABS: Color, Urine Yellow (Yellow); Glucose, Dipstick Normal (Normal); Ketone-Dipstick 5 mg/dl (Negative); Leukocyte Esterase-Dipstick 100 /ul (Negative); Nitrite-Dipstick Negative (Negative); Occult Blood-Urine 10 /ul (Negative); Protein-Dipstick 30 mg/dl (Negative); Specific Gravity, Urine 1.025 (1.002-1.030); Urine Bilirubin Dipstick Negative (Negative); Urine Clarity Sl. Cloudy (Clear); Urine Urobilinogen 1 mg/dl (Normal)
[2023-01-16] MEDS: Nitrofurantoin Macrocrystals 100 MG Capsule PO (22:02)
--- NOTE | 2023-01-22 20:55 | OB.TRI.NOTE ---
HPI - General General Date of Admission: 02/16/23 Date of Service: 02/16/23 Chief Complaint: Low back pain in . HPI Narrative SAUD IRELAND, is a 22-year-old 6 para 1 at 24-4/7 weeks who presents complaining of back pain [facility] Medical History Anxiety Asthma Chlamydia infection affecting Difficulty balancing Family history of hearing loss at age younger than 7 years Gastric reflux Infertility Home Medications albuterol sulfate (bulk) ea miscellaneous 01/16/23 [History Last Taken Unknown] vitamins no.144-folic acid 400 mcg chewable tablet () 2 tab PO DAILY 01/16/23 [History Last Taken 01/15/23] Allergy/AdvReac Type Severity Reaction Status Date / Time codeine Allergy Nausea Verified 01/16/23 21:18 Penicillins Allergy Hives Verified 01/16/23 21:18 amoxicillin [Amoxicillin] AdvReac Hives Verified 01/16/23 21:18 Family History Grandfather Heart disease Grandmother Heart disease Mother Breast cancer Mitral valve prolapse Surgical History Delivery by section History of knee surgery Social History Smoking Status: Never smoker History Elective abortions Hx Para 0 Spontaneous abortions Hx # Term Pregnancies Ectopic pregnancies Hx # Pregnancies Multiple births # of living children NST FHR Rate Baby A Baseline: 135 Variability:: Minimal and Moderate Accelerations:: 10 x 10 Decelerations:: None NST Reactive:: Appropriate for gestational age and Non-Reactive FHR Category:: Category I Uterine Activity:: quiet Assessment & Plan (1) 24 weeks gestation of : PLAN: High risk multigravida at 24 weeks with low back pain. Discharged home to follow-up in the office as needed or as scheduled. Discharge instructions given.
== END 2023-01-16 22:20 | disposition home or self-care (01) ==
LOC: WPOUT 20:51 → WP 20:51
PROVIDERS: Visit Provider Obstetrics & Gynecology
DX: O99.891 Other specified diseases and conditions complicating pregnancy (principal); M54.50 Low back pain, unspecified; Z3A.24 24 weeks gestation of pregnancy
CPT/HCPCS: 59050; 81002; 87086; 87088

== ENCOUNTER 2023-03-28 07:40 | Outpatient (CLI) | payer MEDICAID, SELFPAY ==
[2023-03-28 08:00] VITALS: BP 103/57; PULSE 107; O2SAT 96
[2023-03-28 08:05] VITALS: PULSE 99; O2SAT 98
[2023-03-28 08:39] LABS: ROM Internal Control Test YES-OK TO RESULT pt. (Internal QC); ROM Patient Test Negative (Negative); Record Kit Lot#, ROM+ K1409
[2023-03-28 09:14] VITALS: BMI 34.6
--- NOTE | 2023-03-28 18:13 | OB.TRI.NOTE ---
HPI - General HPI Narrative SAUD IRELAND, is a 22 F at 34.6 weeks who presents to triage with loss of fluid. Stated unsure if water is leaking or broke. Denies any contractions or cramping. Positive movement. Patient is for a repeat section. Maternal Data Information OBDULIA Calculator Estimated Delivery Date Method Current WG Current Estimate 05/03/23 Manual 34w 6d PFSH PFSH Medical History Anxiety Asthma Chlamydia infection affecting Difficulty balancing Family history of hearing loss at age younger than 7 years Gastric reflux Infertility Home Medications albuterol sulfate (bulk) ea miscellaneous 01/16/23 [History Last Taken Unknown] vitamins no.144-folic acid 400 mcg chewable tablet () 2 tab PO DAILY 01/16/23 [History Last Taken 01/15/23] Allergy/AdvReac Type Severity Reaction Status Date / Time codeine Allergy Nausea Verified 03/28/23 09:20 Penicillins Allergy Hives Verified 03/28/23 09:20 amoxicillin [Amoxicillin] AdvReac Hives Verified 03/28/23 09:20 Family History Grandfather Heart disease Grandmother Heart disease Mother Breast cancer Mitral valve prolapse Surgical History Delivery by section History of knee surgery Social History Smoking Status: Never smoker History Elective abortions Hx Para 0 Spontaneous abortions Hx # Term Pregnancies Ectopic pregnancies Hx # Pregnancies Multiple births # of living children ROS Eyes Eyes: Denies blurry vision Cardiovascular Cardiovascular: Reports none; Denies chest pain at rest, chest pain with activity or dizziness Respiratory/Chest Respiratory/Chest: Denies cough or dyspnea Gastrointestinal Gastrointestinal: Reports none and other; Denies diarrhea or vomiting Genitourinary Genitourinary: Denies dysuria Musculoskeletal Musculoskeletal: Reports none Integumentary Integumentary: Reports none; Denies rash Neurologic Neurologic: Denies dizziness, headache(s) or other visual disturbances Psychiatric Psychiatric: Reports none Physical Exam Const alert and no apparent distress General Appearance: cooperative Orientation / Consciousness: awake Exam Limitations: no limitations HEENT normocephalic Eyes General Eye: normal appearance of both eyes Neck full ROM Chest inspection of chest normal Resp normal respiratory effort and normal air movement Effort and Inspection: symmetric chest movement Auscultation: clear to auscultation bilaterally Cardio regular rate GI soft to palpation, non-tender and non-distended Inspection: and other Back/Spine normal ROM Extremity full ROM, normal capillary refill and no calf tenderness Skin no rashes or lesions noted Neuro oriented x3 and CN's II-XII intact bilaterally Psych mental status grossly normal NST FHR Rate Baby A Baseline: 130 Variability:: Moderate Accelerations:: 15 x 15 Decelerations:: None NST Reactive:: Yes FHR Category:: Category I Uterine Activity:: None Assessment & Plan (1) 34 weeks gestation of : (2) Previous delivery, antepartum: (3) Leakage of amniotic fluid: PLAN: Plan NST reactive Cat. 1 tracing ROM plus NEGATIVE No contractions D/C home with follow up in office
== END 2023-03-28 09:11 | disposition home or self-care (01) ==
LOC: WPOUT 07:48 → WP 07:49
PROVIDERS: Referring Provider Advanced Practice Midwife; Visit Provider Advanced Practice Midwife
DX: O42.913 Preterm premature rupture of membranes, unspecified as to length of time between rupture and onset of labor, third trimester (principal); Z3A.34 34 weeks gestation of pregnancy
CPT/HCPCS: 59025; 59050; 84112; 99221; G0378

== ENCOUNTER 2023-04-21 02:30 | Outpatient (CLI) | payer MEDICAID, SELFPAY ==
[2023-04-21 02:53] VITALS: BP 107/73; PULSE 88
[2023-04-21 02:54] VITALS: PULSE 90; O2SAT 98
[2023-04-21 02:56] VITALS: TEMP 36.6; O2SAT 99
[2023-04-21 03:00] VITALS: BMI 35.4
[2023-04-21 03:52] LABS: Hematocrit 31.1 % (37-47); Hemoglobin 10.1 g/dL (12.0-15.0); Mean Corp Hgb Conc 32.5 g/dL (32-36); Mean Corpuscular Hgb 30.5 pg (27.0-32.0); Mean Platelet Vol. 9.2 fl (6.2-12.0); Platelet Count 203 K/mm3 (150-450); RBC Distribution Width CV 14.6 % (11.6-14.6); Red Blood Count 3.31 M/mm3 (4.2-5.4)
[2023-04-21] MEDS: Acetaminophen 500 MG Tablet 1000 MG PO (03:53)
[2023-04-21] MEDS: Ondansetron ODT 4 MG Tablet PO (03:53)
[2023-04-21 04:10] LABS: ALB/GLOB Ratio 0.6 RATIO (0.9-2.4); AST(SGOT) 12 U/L (15-37); Alanine Aminotransfer ALT/SGPT 12 U/L (13-56); Albumin, Serum 2.3 g/dL (3.2-5.0); Alkaline Phosphatase 142 U/L (45-117); Anion Gap 5 (5-15); BUN 9 mg/dL (7-18); BUN/Creat Ratio 17.4 RATIO (10-20); Calcium,Total 8.3 mg/dL (8.5-10.1); Chloride 109 mmol/L (98-107); Creatinine, Serum 0.52 mg/dL (0.55-1.02); EST Glomerular Filtration Rate 156 mL/min (>60); Est Glom Filt Rate - Afr Amer 189 mL/min (>60); Estimated Creatinine Clearance 211.44 ml/min; Globulin 4.1 g/dL (2.2-4.2); Glucose 80 mg/dL (74-106); Potassium 3.5 mmol/L (3.5-5.1); Protein, Total 6.4 g/dL (6.4-8.2); Sodium Level 136 mmol/L (136-145)
--- NOTE | 2023-04-21 09:41 | OB.TRI.NOTE ---
HPI - General HPI Narrative SAUD IRELAND, is a 22 F who presents at 38 weeks with complaint of cramping, nausea, lower back pain. for repeat section. Maternal Data Information OBDULIA Calculator Estimated Delivery Date Method Current WG Current Estimate 05/03/23 Manual 38w 2d PFSH PFSH Medical History Anxiety Asthma Chlamydia infection affecting Difficulty balancing Family history of hearing loss at age younger than 7 years Gastric reflux Infertility Home Medications albuterol sulfate (bulk) ea miscellaneous 01/16/23 [History Last Taken Unknown] vitamins no.144-folic acid 400 mcg chewable tablet () 2 tab PO DAILY 01/16/23 [History Last Taken 04/21/23] vits,calcium no.78-iron fumarate-folic acid 29 mg-1 mg tablet (Prenatabs FA) tab 04/21/23 [History Last Taken Unknown] Allergy/AdvReac Type Severity Reaction Status Date / Time codeine Allergy Nausea Verified 04/21/23 02:59 Penicillins Allergy Hives Verified 04/21/23 02:59 amoxicillin [Amoxicillin] AdvReac Hives Verified 04/21/23 02:59 Family History Grandfather Heart disease Grandmother Heart disease Mother Breast cancer Mitral valve prolapse Surgical History Delivery by section History of knee surgery Social History Smoking Status: Never smoker History Elective abortions Hx Para 0 Spontaneous abortions Hx # Term Pregnancies Ectopic pregnancies Hx # Pregnancies Multiple births # of living children Assessment & Plan (1) Cramping affecting , antepartum: (2) Nausea: PLAN: Plan 1) No signs of labor, cervical exam unchanged and no regular contractions 2) Labs normal 3) Zofran 4mg PO once for nausea 4) Tylenol 1gram PO once for pain 5) D/C home, return if regular contractions or for scheduled repeat section.
== END 2023-04-21 05:20 | disposition home or self-care (01) ==
LOC: WPOUT 02:40 → WP 02:41
PROVIDERS: Visit Provider Advanced Practice Midwife
DX: O99.891 Other specified diseases and conditions complicating pregnancy (principal); R11.0 Nausea; Z3A.38 38 weeks gestation of pregnancy
CPT/HCPCS: 36415; 59025; 59050; 80053; 85027; 99221; G0378

== ENCOUNTER 2023-04-26 09:20 | Inpatient (IN) | payer MEDICAID, SELFPAY ==
[2023-04-26] VITALS (17 sets, daily range): BP systolic 92–122; BP diastolic 49–74; PULSE 59–92; RESP 15–18; TEMP 36.1–36.5; O2SAT 94–100; BMI 34.9
[2023-04-26] MEDS: Lactated Ringers 1,000 ML 999 ML IV (10:00)
[2023-04-26 10:22] LABS: Absolute Lymphocyte Count 1.41 X10^3/uL (0.83-4.51); Absolute Neutrophil Count 5.6 X10^3/uL (2.0-7.7); Basophil# 0.03 X10^3/uL; Basophil% 0.4 % (0-1); Eosinophil# 0.07 X10^3/uL; Eosinophils% 0.9 % (0-5); Hematocrit 33.6 % (37-47); Hemoglobin 11.1 g/dL (12.0-15.0); Lymphocyte # 1.41 X10^3/ul (0.83-4.51); Lymphocyte % 18.3 % (19-41); Mean Corpuscular Hgb 31.4 pg (27.0-32.0); Mean Corpuscular Volume 94.9 fL (81-99); Mean Platelet Vol. 9.2 fl (6.2-12.0); Monocyte# 0.54 X10^3/uL; NRBC Flagged by Analyzer 0 % (0-5); Neutrophil # 5.57 X10^3/uL (2.7-7.7); Neutrophil % 72.5 % (47-70); Platelet Count 218 K/mm3 (150-450); RBC Distribution Width CV 14.6 % (11.6-14.6); RBC Distribution Width SD 50.4 fl (35.1-43.9); Red Blood Count 3.54 M/mm3 (4.2-5.4); White Blood Count 7.7 K/mm3 (4.4-11.0)
[2023-04-26] MEDS: Acetaminophen 500 MG Tablet 1000 MG PO ×3 (10:28→23:45)
[2023-04-26] MEDS: Lactated Ringers 1,000 ML 150 ML IV (11:05)
[2023-04-26 11:06] LABS: Syphilis Antibodies Non-reactive
--- NOTE | 2023-04-26 11:20 | PCM.HP.BLA ---
History and Physical Date of Admission: 04/26/23 PROBLEM: repeat section, desires sterilization ? DIAGNOSIS: as above ? PAST SURGICAL HISTORY: PAST SURGICAL HISTORYExpand by Default PAST SURGICAL HISTORY Procedure Laterality Date ? DELIVERY ONLY ? 12/15/2021 ? PAST SURGICAL HISTORY OF Right 11/26/2018 ? patellar stabilization and right knee meniscal repair ? ? PAST MEDICAL HISTORY: PAST MEDICAL HISTORYExpand by Default PAST MEDICAL HISTORY Diagnosis Date ? ADD (attention deficit disorder) ? ? ADHD (attention deficit hyperactivity disorder) ? ? Anemia ? ? Asthma ? ? Chlamydia ? ? Hypochondroplasia ? ? depression ? ? ? SUBJECTIVE: Irregular ctx's. Nothing regular so hard for her to keep track. ? SOCIAL HISTORY: SOCIAL HISTORYExpand by Default Social History ? Tobacco Use ? Smoking status: Never ? Smokeless tobacco: Never Vaping Use ? Vaping Use: Never used Substance Use Topics ? Alcohol use: Not Currently ? ? Comment: rare, once a month ? Drug use: No ? ? ALLERGIESExpand by Default ALLERGIES Allergen Reactions ? Amoxicillin Hives ? Codeine GI Upset ? Current Outpatient Medications on File Prior to Visit Medication Sig ? blood sugar diagnostic test strip 1 Strip four times daily. Use as instructed ? Lancets lancets 1 Each four times daily. Use as instructed ? magnesium oxide (MAG-OX) 400 mg (241.3 mg magnesium) tablet Take 1 tablet by mouth once daily. ? prental multivitamin 27 mg iron- 800 mcg tablet Take 1 tablet by mouth once daily. ? BECLOMETHASONE DIPROPIONATE (QVAR INHALATION) Inhale as instructed. ? albuterol HFA (VENTOLIN HFA) 90 mcg/actuation inhaler Inhale 2 Puffs as instructed. ? albuterol 90 mcg/actuation Aero Inhale 2 Puffs as instructed three times daily as needed. FOR WHEEZING AND SHORTNESS OF BREATH. ? aspirin, enteric coated (ECOTRIN LOW STRENGTH) 81 mg EC tablet Take 1 tablet by mouth once daily. ? No current facility-administered medications on file prior to visit. ? OBJECTIVE: ? VITALS: BP 100/60 Wt 174 lb 12.8 oz (79.3 kg) LMP 07/19/2022 (Exact Date) BMI 35.31 kg/m? ? HEENT: Normocephalic, atraumatic, Mucus membranes moist without lesions. ? NECK: Soft and Supple. No adenopathy , thyromegaly or bruits. ? SKIN: No lesions. ? CHEST: No increased resp effort. ? HEART: Regular rate and rhythm. ? BACK: Nontender with no CVA tenderness. ? ABDOMEN: Soft, non-tender, non-distended, no masses, no hepatosplenomegaly. On Alli's baby felt to be breech presentation with buttock in the pelvis. Doppler with +FHT above umbilicus ? ? LOWER EXTREMITIES: There was no pitting edema, no palpable cords and no skin changes. ? ? ? ASSESSMENT: repeat section with sterilization ? PLAN: 1) Discussed r/b/a to repeat section with sterilization. She understands sterilization is permanent and irreversible. She is 100% certain she does not desire additional pregnancies in the future. She understands she is not a good TOLAC candidate given narrow pelvis and breech on exam today. Reviewed labor precautions and reasons to come in. Patient was just evaluated on L&D overnight. The rationale for the proposed surgery was discussed in addition to risks, benefits, and alternatives. General pre- and post-operative care was reviewed. Questions were answered. After discussion, the patient indicated a desire to proceed with the planned surgery. ? Anabel Concepcion, DO Assessment & Plan Assessment/Plan (1) 39 weeks gestation of : (2) Previous delivery, antepartum: (3) Hypochondroplasia: (4) Request for sterilization:
[2023-04-26] MEDS: Clindamycin 900 MG/50 ML BAG 75 MG IV (12:00)
[2023-04-26] MEDS: Methylergonovine 0.2 MG/ML Ampul IM (12:51)
--- NOTE | 2023-04-26 13:52 | PCM.OPRPT ---
Problems Associated Problem List Diagnoses (1) Request for sterilization: (2) Hypochondroplasia: (3) 39 weeks gestation of : (4) Previous delivery, antepartum: Report of Operation Date of Procedure: 04/26/23 Pre-Operative Diagnosis: 39 week gestation, history prior section, single IUP, maternal hypochondroplasia, request for permanent sterilization Post-Operative Diagnosis: As above Surgery/Procedure Performed:: RLTCS via pfanennstiel incision Bilateral salpingectomy Description of Surgical Findings:: Significant adhesive disease. The prior hysterotomy was healed such that the lower uterine segment was folded down and adhered to the rectus muscles. The rectus muscles were adhered to the anterior surface of the uterus to the mid uterus. The peritoneum was adhered to the anterior surface of the uterus to the mid uterus. From the mid uterus to the lower uterus there was no distinction between the rectus muscles, peritoneum, and uterus upon entry. Normal appearing bilateral fallopian tubes and ovaries. Normal appearing placenta. VMI in cephalic presentation with clear fluid and apgars 9, 9. Surgeon: Anabel Concepcion manager quality systems: Jozef KAY manager quality systems: Ciera Anna Type of Anesthesia: Spinal Special Medications: None Specimen's removed: Placenta Bilateral fallopian tubes Drains: Carpenter Estimated Blood Loss (mL): 900 Fluids Replaced: See anesthesia record Description of Procedure: The patient was taken to the operating room where spinal anesthesia was adequate, and the patient was prepped and draped in the dorsal supine position with a leftward tilt. A Pfannenstiel skin incision was made on the skin with a scalpel and this was carried down to the underlying layer of fascia. The fascia was incised in midline. The fascia was extended laterally using Ho scissors. The fascia was dissected off the rectus muscles in a cephalad direction using sharp dissection. At this point entry into the peritoneum was noted. With a digital sweep it was noted that along the uterine fundus there were no adhesions noted. There were dense adhesions of the rectus muscles and peritoneum to the lower to mid anterior surface of the uterus. The rectus muscles were started to be dissected off of the uterus. At this point the decision was made to call Dr. Ciera Anna in for assistance. Dr. Ciera Goss was present in the OR for assistance. The fascia was dissected off the rectus muscles using sharp and blunt dissection in a caudad direction. We continued to dissect the rectus muscles off the anterior surface of the uterus with the Bovie, and upon dissection the amniotic sac was then noted. A finger was placed into the uterus to palpate and confirm this was the amniotic sac and a head was noted. Traction was placed in a cephalad and caudad direction in this opening to extend to the uterine incision bluntly. The head was elevated in a flexed position out of the pelvis and membranes were ruptured with an Allis for clear fluid. The head of the followed by the shoulders, and body were delivered without any force, traction or delay. The cord was clamped and cut with a less than 30 sec delay and a vigorous viable male infant was handed off to the waiting nursery staff. The placenta was removed with manual extraction. The uterus was exteriorized. At this point it was noted that the lower uterine segment from the prior hysterotomy was folded down and adhered to the rectus muscles. Bovie cautery was used to remove the lower uterine segment from the rectus muscles on the left side and the right side. Once the lower uterine segment was removed from the rectus muscles was able to be folded back up showing a normal-appearing hysterotomy. The hysterotomy was then closed with 0 Vicryl in a running locked fashion. Several additional [id number]-jw-[id number] sutures were placed for hemostasis. Confirmed that the patient desired sterilization. She understands sterilization is permanent and irreversible, and there is a risk of regret. She requested to proceed with sterilization. The right fallopian tube was elevated using [place] clamps and followed out to the fimbriated ends. The LigaSure device was used to serially clamped, cauterize, and transect along the mesosalpinx hugging adjacent to the tube. Once at the level of the cornua the fallopian tube was transected and removed. The same was performed on the right after elevating the right fallopian tube using Tyron clamps and following it out to the fimbriated end. The LigaSure device was then used to serially clamp, cauterize, and transect along the mesosalpinx hugging adjacent to the tube until reaching level of the cornua. Once at the level of the cornua the fallopian tube was transected and removed. Bilateral fallopian tubes were sent to pathology for review. Hemostasis was noted. The uterus was placed back into the abdomen. The adnexa and hysterotomy were hemostatic. Nai was placed over the lower uterine segment and hysterotomy. Several jwuulw-cr-[id number] sutures using 3-0 Vicryl were placed in the rectus muscles where the uterus was dissected off the rectus muscles for hemostasis. Good hemostasis was noted. The subfascial space was noted to be hemostatic. The fascia was closed with stratafix in a running fashion. Subcutaneous space was irrigated and noted to be hemostatic. Subcutaneous space was reapproximated with 3-0 Vicryl in a running fashion. The skin was closed with 4-0 Monocryl in subcuticular fashion. A dressing was placed. Instrument, sponge, needle counts were correct. The patient was taken to the recovery in stable condition. Grafts/Implants Used: None Procedure Start Time: 12:20 Complications None Admit VTE Documentation VTE Present on Admission: No VTE Mechan Device Prophylaxis: SCD's
[2023-04-26] MEDS: Oxytocin 15 Units/NS 250ml 15 UNITS/250 ML IV.SOLN 83 UNITS IV (14:00)
--- NOTE | 2023-04-26 14:45 | FALS_PTH ---
PATIENT: SAUD IRELAND LOC: [facility] U#:[id number] AGE/SX: 22/ ROOM: WP007 RE04/26/[address]: Dr. Anabel Concepcion DO : 2000 BED: 1 DIS: 04/28/2023 SPEC #: [id number] RECD: 04/26/23 14:56 STATUS: VAUGHN TEVIN #: [id number] DYLON: 04/26/23 14:[address]: Anabel Concepcion DEPT: SURGICAL PATHOLOGY RECD BY: Rica Collins ENTERED: 04/29/23 08:32 SP TYPE: FALL TUBES OTHR DR: Selam Primary Care Phys Tissues: Fallopian tube Procedures: Surgery Specimen Level II HEADER OPERATION: Repeat section PRE-OP DIAGNOSIS: Fallopian tube TISSUE SUBMITTED: Fallopian tube MICROSCOPIC DIAGNOSIS Bilateral fallopian tubes, salpingectomy: Bilateral fallopian tubes, no pathologic diagnosis. SJ: 04/30/2023 MICROSCOPIC DESCRIPTION Slides are reviewed. GROSS DESCRIPTION Received in fixative is one container labeled with the patient's name and designated bilateral fallopian tubes. the right identified with a suture. The specimen consists of bilateral fallopian tubes including fimbrial ends. The right fallopian tube measures 6 cm in length and 0.6 cm in diameter. The left fallopian tube measures 6.5 cm in length and 0.8 cm in diameter. Sections reveal unremarkable cut surfaces. Agricultural Equipment Operator sections are submitted in two cassettes as follows: 1 - right fallopian tube, 2 - left fallopian tube. / NASRA:negar 04/29/23 TC:4 CPT: 20741 x2
[2023-04-26] MEDS: Ketorolac 30 MG/ML Syringe IV ×2 (16:10→21:57)
[2023-04-26] MEDS: Lactated Ringers 1,000 ML 100 ML IV (17:13)
[2023-04-26] MEDS: Ondansetron 4 MG/2 ML Vial IV (17:38)
[2023-04-27] MEDS: Enoxaparin 40 MG/0.4 ML Syringe SC (01:11)
[2023-04-27 01:15] VITALS: PULSE 65; RESP 15; O2SAT 94
[2023-04-27] MEDS: Ketorolac 30 MG/ML Syringe IV ×2 (03:07→10:17)
[2023-04-27] MEDS: 0.9% Saline Lock 10 ML Syringe IV ×2 (03:08→10:18)
[2023-04-27 03:10] VITALS: BP 94/51; PULSE 79; RESP 15; TEMP 36.3; O2SAT 96
[2023-04-27 04:37] LABS: Hematocrit 26.6 % (37-47); Hemoglobin 8.5 g/dL (12.0-15.0); Mean Corpuscular Hgb 30.5 pg (27.0-32.0); Mean Corpuscular Volume 95.3 fL (81-99); Mean Platelet Vol. 9.3 fl (6.2-12.0); Platelet Count 179 K/mm3 (150-450); RBC Distribution Width CV 14.6 % (11.6-14.6); RBC Distribution Width SD 50.1 fl (35.1-43.9); Red Blood Count 2.79 M/mm3 (4.2-5.4); White Blood Count 10.7 K/mm3 (4.4-11.0)
[2023-04-27] MEDS: Acetaminophen 500 MG Tablet 1000 MG PO ×3 (05:58→18:21)
[2023-04-27 09:06] VITALS: BP 109/66; PULSE 79; RESP 16; TEMP 36.3; O2SAT 97
[2023-04-27] MEDS: Senna/Docusate Sodium 1 Tablet PO (10:17)
--- NOTE | 2023-04-27 10:25 | PN.OBGYN_ITS ---
Subjective Subjective Doing well per patient and nursing staff. Ambulating and taking PO without difficulty. Voiding and passing flatus. Pain controlled. , services for assistance. Denies headache, visual changes, chest pain, shortness of breath, leg pain or increased bleeding. Lochia normal. Objective Data Objective Data Vital Signs: Vital Signs Temp Pulse Resp BP Pulse Ox O2 Del Method 97.3 F L 79 16 109/66 97 Room Air 04/27/23 09:06 04/27/23 09:06 04/27/23 09:06 04/27/23 09:06 04/27/23 09:06 04/27/23 09:06 Oxygen Delivery Method Room Air Weight: 173 lb 1.006 oz Body Mass Index (BMI) 34.9 Intake & Output: Intake and Output for Last 24 Hours 04/25/23 04/26/23 04/27/23 23:59 23:59 23:59 Intake Total 2411.33 / 2411.33 Output Total 1905 / 1905 300 / 300 Balance 506.33 / 506.33 -300 / -300 Lab / Micro Data 04/27/23 04:30 Labs: Laboratory Results - last 24 hr 04/26/23 10:00: Syphilis Total Ab Non-reactive, Blood Type O NEGATIVE, Antibody Screen POSITIVE, Antibody Identification ANTI-D 04/27/23 04:30: WBC 10.7, RBC 2.79 L, Hgb 8.5 L, Hct 26.6 L, MCV 95.3, MCH 30.5, MCHC 32.0, RDW Std Deviation 50.1 H, RDW Coeff of Zulma 14.6, Plt Count 179, MPV 9.3 ROS Constitutional Constitutional: Reports systems reviewed and no addt'l complaints, except as do cumented; Denies headache(s) Eyes Eyes: Denies acute decrease in peripheral vision, blurry vision or change in vision ENT HEENT: Reports systems reviewed and no addt'l complaints, except as documented Cardiovascular Cardiovascular: Denies chest pain or dizziness Respiratory/Chest Respiratory/Chest: Denies cough, dyspnea, dyspnea on exertion, shortness of breath at rest or shortness of breath with exertion Gastrointestinal Gastrointestinal: Denies abdominal pain, diarrhea, nausea or vomiting Genitourinary Genitourinary: Denies abdominal discomfort Musculoskeletal Musculoskeletal: Denies limited range of motion Integumentary Integumentary: Reports systems reviewed and no addt'l complaints, except as d ocumented Neurologic Neurologic: Reports systems reviewed and no addt'l complaints, except as documented Psychiatric Psychiatric: Reports systems reviewed and no addt'l complaints, except as documented Endocrine Endocrinology: Reports systems reviewed and no addt'l complaints, except as documented Hematologic/Lymphatic Hematologic/Lymphatic: Reports systems reviewed and no addt'l complaints, except as documented Allergic/Immunologic Allergic/Immunologic: Reports systems reviewed and no addt'l complaints, except as documented Physical Exam Const alert and oriented x3 General Appearance: cooperative Orientation / Consciousness: awake, oriented to person, oriented to place and oriented to time Exam Limitations: no limitations HEENT normocephalic Head and Scalp: normal to inspection, normocephalic and atraumatic Face and Sinus: normal facial exam Eyes General Eye: normal appearance of both eyes Neck full ROM Chest Chest: symmetrical chest wall rise Resp normal respiratory effort and normal air movement Auscultation: clear to auscultation bilaterally Cardio regular rate, regular rhythm, S1 normal heart sound, S2 normal heart sound, no murmurs, no rub, no gallops and no clicks GI normal to inspection, nondistended, normoactive bowel sounds and non-tender GI Narrative: Dressing dry and intact appearance of the vagina normal Bladder / Kidney Exam: no CVA tenderness Back/Spine normal ROM Extremity normal to inspection and full ROM Skin no rashes or lesions noted Neuro oriented x3, CN's II-XII intact bilaterally and moves all extremities Sensorium / Orientation: awake, alert and oriented to person Motor Exam: clonus absent Deep Tendon Reflexes: Rt Patellar (L4): 2+ and Lt Patellar (L4): 2+ Assessment & Plan (1) S/P : (2) Acute blood loss anemia: PLAN: Plan 1) POD #1 section with bilateral salpingectomy 2) I&O 3) Pain management 4) Hgb drop from 11-8.5, will give IV iron, repeat CBC in am 5) Planning D/C tomorrow
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
[2023-04-27] MEDS: Iron Sucrose Complex 200 MG in 0.9% Normal Saline (100mL Bag) 100 ML 220 MG IV (12:26)
[2023-04-27 14:08] VITALS: BP 95/65; PULSE 81; RESP 16; TEMP 36.6; O2SAT 97
[2023-04-27] MEDS: Ibuprofen 600 MG Tablet PO ×2 (16:37→22:12)
[2023-04-27] MEDS: SimETHICONE 80 MG Chewable Tablet PO (18:21)
[2023-04-27 19:55] VITALS: BP 117/78; PULSE 76; RESP 20; TEMP 36.8; O2SAT 96
[2023-04-28] MEDS: SimETHICONE 80 MG Chewable Tablet PO (00:06)
[2023-04-28] MEDS: Acetaminophen 500 MG Tablet 1000 MG PO ×2 (00:07→06:01)
[2023-04-28 01:40] VITALS: BP 102/70; PULSE 70; RESP 16; TEMP 36.4; O2SAT 97
[2023-04-28] MEDS: 0.9% Saline Lock 10 ML Syringe IV (01:43)
[2023-04-28] MEDS: Enoxaparin 40 MG/0.4 ML Syringe SC (01:44)
[2023-04-28] MEDS: Ibuprofen 600 MG Tablet PO ×2 (04:24→10:42)
[2023-04-28 06:05] LABS: Absolute Neutrophil Count 7.1 X10^3/uL (2.0-7.7); Basophil# 0.05 X10^3/uL; Basophil% 0.5 % (0-1); Eosinophil# 0.15 X10^3/uL; Eosinophils% 1.6 % (0-5); Hematocrit 25.2 % (37-47); Hemoglobin 7.9 g/dL (12.0-15.0); Lymphocyte % 15.7 % (19-41); Mean Corp Hgb Conc 31.3 g/dL (32-36); Mean Corpuscular Hgb 30.4 pg (27.0-32.0); Mean Corpuscular Volume 96.9 fL (81-99); Mean Platelet Vol. 9.1 fl (6.2-12.0); Monocyte# 0.61 X10^3/uL; Monocyte% 6.4 % (0-10); NRBC Flagged by Analyzer 0 % (0-5); Neutrophil # 7.11 X10^3/uL (2.7-7.7); Neutrophil % 74.2 % (47-70); Platelet Count 186 K/mm3 (150-450); RBC Distribution Width CV 14.9 % (11.6-14.6); RBC Distribution Width SD 51.8 fl (35.1-43.9); White Blood Count 9.6 K/mm3 (4.4-11.0)
--- NOTE | 2023-04-28 06:56 | NURSING ---
MOB did majority of care overnight. FOB called nursing staff to assist with diaper changes and crib linens overnight, overwhelmed when infant cries. nursing staff development coordinator observed him placing both hands over ears when in crib crying and later stated I had to go outside for a few minutes following the diaper change. Encouraged pt and FOB to call overnight when help is needed.
[2023-04-28 08:47] VITALS: BP 101/70; PULSE 93; RESP 16; TEMP 36.7; O2SAT 98
--- NOTE | 2023-04-28 10:18 | PN.OBGYN_ITS ---
Subjective Subjective Doing well per patient and nursing staff. Ambulating and taking PO without difficulty. Voiding and passing flatus. Pain controlled. , services for assistance. Denies headache, visual changes, chest pain, shortness of breath, leg pain or increased bleeding. Lochia normal. Objective Data Objective Data Vital Signs: Vital Signs Temp Pulse Resp BP Pulse Ox O2 Del Method 98.0 F 93 16 101/70 98 Room Air 04/28/23 08:47 04/28/23 08:47 04/28/23 08:47 04/28/23 08:47 04/28/23 08:47 04/28/23 08:47 Oxygen Delivery Method Room Air Weight: 173 lb 1.006 oz Body Mass Index (BMI) 34.9 Intake & Output: Intake and Output for Last 24 Hours 04/26/23 04/27/23 04/28/23 23:59 23:59 22:59 Intake Total 2411.33 / 2411.33 110 / 110 Output Total 1905 / 1905 300 / 300 Balance 506.33 / 506.33 -190 / -190 Lab / Micro Data 04/28/23 05:55 Labs: Laboratory Results - last 24 hr 04/28/23 05:55: WBC 9.6, RBC 2.60 L, Hgb 7.9 L, Hct 25.2 L, MCV 96.9, MCH 30.4, MCHC 31.3 L, RDW Std Deviation 51.8 H, RDW Coeff of Zulma 14.9 H, Plt Count 186, MPV 9.1, Immature Gran % (Auto) 1.600 H, Neut % (Auto) 74.2 H, Lymph % (Auto) 15.7 L, [place] % (Auto) 6.4, Eos % (Auto) 1.6, Baso % (Auto) 0.5, Absolute Neuts (auto) 7.1, Absolute Lymphs (auto) 1.50, Nucleated RBC % 0 ROS Constitutional Constitutional: Reports systems reviewed and no addt'l complaints, except as documented; Denies headache(s) Eyes Eyes: Denies acute decrease in peripheral vision, blurry vision or change in vision ENT HEENT: Reports systems reviewed and no addt'l complaints, except as documented Cardiovascular Cardiovascular: Denies chest pain or dizziness Respiratory/Chest Respiratory/Chest: Denies cough, dyspnea, dyspnea on exertion, shortness of breath at rest or shortness of breath with exertion Gastrointestinal Gastrointestinal: Denies abdominal pain, diarrhea, nausea or vomiting Genitourinary Genitourinary: Denies abdominal discomfort Musculoskeletal Musculoskeletal: Denies limited range of motion Integumentary Integumentary: Reports systems reviewed and no addt'l complaints, except as documented Neurologic Neurologic: Reports systems reviewed and no addt'l complaints, except as documented Psychiatric Psychiatric: Reports systems reviewed and no addt'l complaints, except as documented Endocrine Endocrinology: Reports systems reviewed and no addt'l complaints, except as documented Hematologic/Lymphatic Hematologic/Lymphatic: Reports systems reviewed and no addt'l complaints, except as documented Allergic/Immunologic Allergic/Immunologic: Reports systems reviewed and no addt'l complaints, except as documented Physical Exam Const alert and oriented x3 General Appearance: cooperative Orientation / Consciousness: awake, oriented to person, oriented to place and oriented to time Exam Limitations: no limitations HEENT normocephalic Head and Scalp: normal to inspection, normocephalic and atraumatic Face and Sinus: normal facial exam Eyes General Eye: normal appearance of both eyes Neck full ROM Chest Chest: symmetrical chest wall rise Resp normal respiratory effort and normal air movement Auscultation: clear to auscultation bilaterally Cardio regular rate, regular rhythm, S1 normal heart sound, S2 normal heart sound, no murmurs, no rub, no gallops and no clicks GI normal to inspection, nondistended, normoactive bowel sounds and non-tender appearance of the vagina normal Bladder / Kidney Exam: no CVA tenderness Back/Spine normal ROM Extremity normal to inspection and full ROM Skin no rashes or lesions noted Neuro oriented x3 and moves all extremities Sensorium / Orientation: awake, alert and oriented to person Assessment & Plan (1) Acute blood loss anemia: (2) Request for sterilization: (3) Delivery by section: PLAN: Plan 1) POD #2 LTCS 2) 3) Vitals stable 4) Hgbs decreased from 11.1 to 7.9, IV iron given yesterday. Will continue to monitor, fatigure but otherwise asymptomatic. If no improvement can offer blood tranfusion. 5) Planning D/C home today
--- NOTE | 2023-04-28 10:28 | PCM.DC.SUM ---
Providers Date of Admission: 04/26/23 Primary Care Physician: Selam Primary Care Phys Reason For Visit: Diagnosis Discharge Diagnosis (1) Acute blood loss anemia: Status: Acute Code(s): D62 - Acute posthemorrhagic anemia (2) Request for sterilization: Status: Acute Code(s): Z30.2 - Encounter for sterilization (3) Delivery by section: Status: Acute Plan 1) POD #2 LTCS 2) 3) Vitals stable 4) Hgbs decreased from 11.1 to 7.9, IV iron given yesterday. Will continue to monitor, fatigure but otherwise asymptomatic. If no improvement can offer blood tranfusion. 5) Planning D/C home today Medications at Discharge Home Medications vits,calcium no.78-iron fumarate-folic acid 29 mg-1 mg tablet (Prenatabs FA) 1 tab PO DAILY 04/21/23 albuterol sulfate 90 mcg/actuation aerosol inhaler (Ventolin HFA) 2 puff inhalation Q6H PRN asthma 04/26/23 acetaminophen 500 mg tablet 1,000 mg (2 x 500 mg) PO Q6H #0 tabs 04/28/23 ibuprofen 600 mg tablet 600 mg PO Q6H #0 tabs 04/28/23 sennosides 8.6 mg-docusate sodium 50 mg tablet (Stool Softener-Stimulant Laxative) 1 - 2 tab PO DAILY #0 tabs 04/28/23 Hospital Course Summary of Care Provided Minutes Spent on Discharge: 15 Hospital Course: Presented for LTCS and bilateral salpingectomy. Acute blood loss anemia with IV iron infusion. Discharge home on POD #2 Weight / BMI Weight Weight: 173 lb 1.006 oz Body Mass Index (BMI) 34.9 ABG / Lab / Microbiology Data 04/28/23 05:55 Laboratory: Laboratory Results - last 24 hr 04/28/23 05:55: WBC 9.6, RBC 2.60 L, Hgb 7.9 L, Hct 25.2 L, MCV 96.9, MCH 30.4, MCHC 31.3 L, RDW Std Deviation 51.8 H, RDW Coeff of Zulma 14.9 H, Plt Count 186, MPV 9.1, Immature Gran % (Auto) 1.600 H, Neut % (Auto) 74.2 H, Lymph % (Auto) 15.7 L, [place] % (Auto) 6.4, Eos % (Auto) 1.6, Baso % (Auto) 0.5, Absolute Neuts (auto) 7.1, Absolute Lymphs (auto) 1.50, Nucleated RBC % 0 Meaningful Use Info Meaningful Use Diagnoses (Choose all that apply): None applicable Discharge Plan Admission Admit Date/Time: 04/26/23 09:20 Primary Reason for Your Visit: section Attending Provider: Anabel Concepcion Primary Care Provider: Care Physician,Selam Primary Discharge Orders/Prescriptions Prescriptions: New sennosides-docusate sodium [Stool Softener-Stimulant Laxat] 8.6-50 mg Tablet 1 - 2 tab PO DAILY Qty: 0 0RF acetaminophen 500 mg Tablet 1,000 mg PO Q6H Qty: 0 0RF ibuprofen 600 mg Tablet 600 mg PO Q6H Qty: 0 0RF Continued albuterol sulfate [Ventolin HFA] 90 mcg/actuation HFA aerosol inhaler 2 puff INHALATION Q6H PRN (Reason: asthma) Patient Comments: INHALE 2 PUFFS BY MOUTH DIRECTED EVERY 6 HOURS NEEDED Prenatabs FA 29-1 mg tablet 1 tab PO DAILY Referrals / Follow Up: Anabel Concepcion DO [Med Staff - Active Staff] - (Follow up in one week for incision check and follow up in 6 week for PP ) Care Physician,No Primary [Primary Care Provider] - Disposition Disposition (needs filled in before D/C Order can be placed): Home, Self Care
[2023-04-28] MEDS: Senna/Docusate Sodium 1 Tablet PO (10:42)
[2023-04-28 11:54] VITALS: BP 112/76; PULSE 84; RESP 16; TEMP 36.3
[2023-04-28 23:45] LABS: Pathology Specimen OB SEE PATHOLOGY REPORT
== END 2023-04-28 12:45 | disposition home or self-care (01) | DRG 539 ==
PROVIDERS: Advanced Practice Midwife; Admitting Provider Obstetrics & Gynecology; Visit Provider Obstetrics & Gynecology
PROC: 10D00Z1 Extraction of Products of Conception, Low, Open Approach (ICD-10-PCS; CPT 59514; principal; 2023-04-26 11:45)
DX: O34.211 Maternal care for low transverse scar from previous cesarean delivery (principal); D62 Acute posthemorrhagic anemia; Q77.4 Achondroplasia; Z37.0 Single live birth; Z30.2 Encounter for sterilization; Z79.82 Long term (current) use of aspirin; Z3A.39 39 weeks gestation of pregnancy; O99.892 Other specified diseases and conditions complicating childbirth; O99.03 Anemia complicating the puerperium
CPT/HCPCS: 59025; 59050; 85025; 85027; 86780; 86850; 86870; 86900; 86901; 88302; 99221; J1756; J7120; A4216; G0378; J2405

== ENCOUNTER 2023-06-12 16:22 | Emergency (ER) | payer MEDICAID, SELFPAY ==
[2023-06-12 16:23] VITALS: BP 113/78; PULSE 75; RESP 14; TEMP 36.8; O2SAT 98; BMI 33.5
--- NOTE | 2023-06-12 16:34 | EKG12_ITS ---
Test Reason : CP Blood Pressure : / mmHG Vent. Rate : 068 BPM Atrial Rate : 068 BPM P-R Int : 136 ms QRS Dur : 074 ms QT Int : 376 ms P-R-T Axes : 021 001 038 degrees QTc Int : 399 ms Normal sinus rhythm Minimal voltage criteria for LVH, may be normal variant ( R in aVL ) Borderline ECG Confirmed by BARRETT ANGLIN, BISHNU ([id number]), editor news ADEBAYO THOMAS ([id number]) on 06/14/2023 1:24:46 PM Referred By: Confirmed By:BISHNU HYDE MD
--- NOTE | 2023-06-12 16:35 | ED.VIS.CHEST ---
HPI <MARISABEL Kc - Last Filed: 06/12/23 19:43> History of Present Illness Chief Complaint: Chest Pain Narrative Narrative: Patient presenting due to left-sided intermittent sharp and stabbing chest pain that radiates to her back that started around 8 PM last night. Nothing seems to make her symptoms better or worse. She reports that she will feel short of breath randomly, both at rest and with exertion. She reports that she does have a history of anxiety and has had chest pain before, but nothing this severe and she is not feeling anxious. She reports that on 04/26/2023 she had a . She denies any history of PE/recent travel/immobilization. She denies any personal history of cardiac disease. She reports that her mom does have a history of CAD. She denies any fever or chills. PFSH <MARISABEL Kc - Last Filed: 06/12/23 19:43> [facility] Medical History Anxiety Asthma Chlamydia infection affecting Depression Difficulty balancing Family history of hearing loss at age younger than 7 years Gastric reflux Infertility depression Home Medications albuterol sulfate 90 mcg/actuation aerosol inhaler (Ventolin HFA) 2 puff inhalation Q6H PRN asthma 04/26/23 [History Last Taken Unknown] acetaminophen 500 mg tablet 1,000 mg (2 x 500 mg) PO Q6H #0 tabs 04/28/23 [Rx Last Taken Unknown] ibuprofen 600 mg tablet 600 mg PO Q6H #0 tabs 04/28/23 [Rx Last Taken Unknown] sennosides 8.6 mg-docusate sodium 50 mg tablet (Stool Softener-Stimulant Laxative) 1 - 2 tab PO DAILY #0 tabs 04/28/23 [Rx Last Taken 06/12/23] escitalopram oxalate 10 mg tablet 10 mg PO DAILY 06/12/23 [History Last Taken 06/12/23] nystatin 100,000 unit/gram topical powder (Nystop) 1 applic topical TID 06/12/23 [History Last Taken 06/12/23] Allergy/AdvReac Type Severity Reaction Status Date / Time amoxicillin [Amoxicillin] Allergy Hives Verified 06/12/23 16:23 codeine Allergy Nausea Verified 12/20/23 16:23 Penicillins Allergy Hives Verified 06/12/23 16:23 Family History Grandfather Heart disease Grandmother Heart disease Mother Breast cancer Mitral valve prolapse Surgical History Delivery by section History of knee surgery Social History Smoking Status: Never smoker ROS <MARISABEL Kc - Last Filed: 06/12/23 19:43> ROS ED Constitutional Constitutional ED: Denies chills or fever(s) Cardiovascular Cardiovascular: Reports chest pain; Denies palpitations or racing heartbeat Respiratory/Chest Respiratory/Chest: Reports dyspnea and dyspnea on exertion; Denies cough Gastrointestinal Gastrointestinal: Denies abdominal pain, nausea or vomiting Genitourinary Genitourinary ED: Denies dysuria, hematuria or urinary urgency Musculoskeletal Musculoskeletal: Denies arthralgias or myalgias Integumentary Denies rash Neurologic Neurologic: Denies weakness EXAM <MARISABEL Kc - Last Filed: 06/12/23 19:43> Physical Exam Const Vital Signs: 06/12/23 16:23 06/12/23 16:22 06/12/23 18:22 Temperature 98.2 F Temperature Source Temporal Pulse Rate 75 76 Respiratory Rate 14 18 Respiratory Effort Normal Non-Labored Respiratory Pattern Normal Blood Pressure 113/78 108/74 Blood Pressure Mean 89 85 Pulse Ox 98 97 Oxygen Delivery Method Room Air Room Air Positive well nourished, well developed and no apparent distress General Appearance ED: well developed HEENT Reports normocephalic and head/scalp atraumatic Mouth ED: Yes moist mucous membranes normal Eyes PERRL and EOMs intact bilaterally Neck full ROM and supple Chest Wall inspection of chest normal Chest Narrative: Reproducible pain with palpation. Chest: tenderness pectoral muscle left and sternum Resp normal respiratory effort and clear to auscultation bilaterally Cardio regular rate and regular rhythm GI soft to palpation, non-tender, non-distended and no masses Back/Spine normal ROM and normal to inspection Extremity normal to inspection and full ROM Neuro oriented x3, CN's II-XII intact bilaterally, moves all extremities, no focal motor deficits and no sensory deficits noted Sensorium / Orientation: awake and alert Psych mental status grossly normal and thought process normal Skin no rashes or lesions noted and no wounds <Wellington Holman MD - Last Filed: 06/12/23 21:53> Physical Exam Const Vital Signs: 06/12/23 16:23 06/12/23 16:22 06/12/23 18:22 Temperature 98.2 F Temperature Source Temporal Pulse Rate 75 76 Respiratory Rate 14 18 Respiratory Effort Normal Non-Labored Respiratory Pattern Normal Blood Pressure 113/78 108/74 Blood Pressure Mean 89 85 Pulse Ox 98 97 Oxygen Delivery Method Room Air Room Air MDM <MARISABEL Kc - Last Filed: 06/12/23 19:43> [facility] MDM Narrative Medical decision making narrative: Patient presenting with left-sided chest pain that radiates to her back that is stabbing and intermittent that started around 8 PM last night. No history of any cardiac disease. She did have a on 04/26/2023. She has felt intermittently short of breath both at rest and with exertion. She is well-appearing and in no acute distress, vitals are unremarkable. She does have tenderness to palpation to the left side of her chest. Labs to be obtained to rule out leukocytosis, anemia, electrolyte abnormality, ACS, and PE. Chest x-ray will be obtained to rule out cardiopulmonary abnormality. Workup overall is essentially unremarkable. Chest x-ray negative for any acute process. On reexamination patient reports that this may likely be due to her anxiety. I think patient's chest pain is likely due to anxiety or chest wall pain. She will be discharged home in stable condition, she is to follow-up with her PCP. She is comfortable with plan. Lab Data Attestation: I reviewed the patient's lab results. Lab results narrative: Normal 0.8, troponin 3, D-dimer 0.35 Labs: Laboratory Results - last 24 hr 06/12/23 16:46 WBC 5.9 RBC 4.24 Hgb 11.8 L Hct 38.0 MCV 89.6 MCH 27.8 MCHC 31.1 L RDW Std Deviation 40.7 RDW Coeff of Zulma 12.3 Plt Count 276 MPV 8.8 Immature Gran % (Auto) 0.200 Neut % (Auto) 47.8 Lymph % (Auto) 36.5 Thurston % (Auto) 8.3 Eos % (Auto) 6.4 H Baso % (Auto) 0.8 Absolute Neuts (auto) 2.8 Absolute Lymphs (auto) 2.16 Nucleated RBC % 0 D-Dimer Quant (PE/DVT) 0.35 Sodium 138 Potassium 3.9 Chloride 108 H Carbon Dioxide 29.0 Anion Gap 1 L BUN 15 Creatinine 0.98 Estim Creat Clear Calc 106.13 Est GFR (MDRD) Af Amer 91 Est GFR (MDRD) Non-Af 75 BUN/Creatinine Ratio 15.4 Glucose 88 Calcium 9.1 Troponin I High Sens 3 Radiography X-Ray: Read by ED Physician and Read by Radiologist Diagnostic Testing: Clinical Impression(s) from Imaging Studies Chest X-Ray 06/12/23 17:18 IMPRESSION: No acute radiographic abnormalities. Electronically Signed: Tad Longoria MD at 18:56 EST , EKG Initial EKG: Attestation: I personally reviewed and interpreted this EKG as follows: Comments: 68 bpm, normal sinus rhythm, no ST elevation, no signs of cardiac ischemia, reviewed and interpreted by attending ED physician <Wellington Holman MD - Last Filed: 06/12/23 21:53> [facility] MDM Narrative Medical decision making narrative: Patient presenting with left-sided chest pain that radiates to her back that is stabbing and intermittent that started around 8 PM last night. No history of any cardiac disease. She did have a on 04/26/2023. She has felt intermittently short of breath both at rest and with exertion. She is well-appearing and in no acute distress, vitals are unremarkable. She does have tenderness to palpation to the left side of her chest. Labs to be obtained to rule out leukocytosis, anemia, electrolyte abnormality, ACS, and PE. Chest x-ray will be obtained to rule out cardiopulmonary abnormality. Workup overall is essentially unremarkable. Chest x-ray negative for any acute process. On reexamination patient reports that this may likely be due to her anxiety. I think patient's chest pain is likely due to anxiety or chest wall pain. She will be discharged home in stable condition, she is to follow-up with her PCP. She is comfortable with plan. Dr. Holman: I have personally performed a face to face assessment of the patient and have reviewed the PAMELA Note. I performed a substantive portion of the visit including all aspects of the following. My yoder findings include: History is chest pain, mainly left-sided. History of anxiety. Exam is afebrile. Vital signs noted. Regular rate and rhythm. Lungs clear to auscultation bilaterally. No crepitance of chest. Mildly reproducible chest wall pain. Abdomen soft nontender with normal active bowel sounds. Neurological examination nonfocal and nonlateralizing. Medical Decision Making: Check EKG. EKG interpreted by myself independently shows no evidence of STEMI. Check chest x-ray. Chest x-ray in 1 view interpreted by myself independently shows no evidence of pneumothorax or pneumonia. I reviewed the radiology report which confirms my independent interpretation. Check labs. I do not feel she requires serial troponins as this has been ongoing since yesterday. D-dimer also negative. Discharged to follow-up with primary care. Return instructions reviewed. Other additions or changes: [None] History & Record Review Discussion w/independent historian: Patient Lab Data Labs: Laboratory Results - last 24 hr 06/12/23 16:46 WBC 5.9 RBC 4.24 Hgb 11.8 L Hct 38.0 MCV 89.6 MCH 27.8 MCHC 31.1 L RDW Std Deviation 40.7 RDW Coeff of Zulma 12.3 Plt Count 276 MPV 8.8 Immature Gran % (Auto) 0.200 Neut % (Auto) 47.8 Lymph % (Auto) 36.5 Thurston % (Auto) 8.3 Eos % (Auto) 6.4 H Baso % (Auto) 0.8 Absolute Neuts (auto) 2.8 Absolute Lymphs (auto) 2.16 Nucleated RBC % 0 D-Dimer Quant (PE/DVT) 0.35 Sodium 138 Potassium 3.9 Chloride 108 H Carbon Dioxide 29.0 Anion Gap 1 L BUN 15 Creatinine 0.98 Estim Creat Clear Calc 106.13 Est GFR (MDRD) Af Amer 91 Est GFR (MDRD) Non-Af 75 BUN/Creatinine Ratio 15.4 Glucose 88 Calcium 9.1 Troponin I High Sens 3 Radiography Diagnostic Testing: Clinical Impression(s) from Imaging Studies Chest X-Ray 06/12/23 17:18 IMPRESSION: No acute radiographic abnormalities. Electronically Signed: Tad Longoria MD at 18:56 EST , Discharge Plan Triage Chief Complaint: Chest Pain ED Midlevel Provider: Soumya Beatty ED Provider: Wellington Holman Dx/Rx/DC Orders Clinical Impression: Chest pain Instructions: ED Chest Pain, Noncardiac Prescriptions: No Action albuterol sulfate [Ventolin HFA] 90 mcg/actuation HFA aerosol inhaler 2 puff INHALATION Q6H PRN (Reason: asthma) Patient Comments: INHALE 2 PUFFS BY MOUTH DIRECTED EVERY 6 HOURS NEEDED sennosides-docusate sodium [Stool Softener-Stimulant Laxat] 8.6-50 mg Tablet 1 - 2 tab PO DAILY Qty: 0 0RF acetaminophen 500 mg Tablet 1,000 mg PO Q6H Qty: 0 0RF ibuprofen 600 mg Tablet 600 mg PO Q6H Qty: 0 0RF escitalopram oxalate 10 mg tablet 10 mg PO DAILY nystatin [Nystop] 100,000 unit/gram powder 1 applic TOPICAL TID Patient Comments: OVER SCAR Primary Care Provider: Care Physician,No Primary Referrals: Care Physician,No Primary [Primary Care Provider] - Activity Restrictions/Additional Instructions: Follow-up with your PCP in 5 to 7 days. Return for any worsening of your symptoms. Disposition Disposition: Home, Self Care Discharge Date/Time: 06/12/23 19:03
[2023-06-12 16:56] LABS: Absolute Lymphocyte Count 2.16 X10^3/uL (0.83-4.51); Absolute Neutrophil Count 2.8 X10^3/uL (2.0-7.7); Basophil# 0.05 X10^3/uL; Basophil% 0.8 % (0-1); Eosinophil# 0.38 X10^3/uL; Eosinophils% 6.4 % (0-5); Hemoglobin 11.8 g/dL (12.0-15.0); Lymphocyte # 2.16 X10^3/ul (0.83-4.51); Lymphocyte % 36.5 % (19-41); Mean Corp Hgb Conc 31.1 g/dL (32-36); Mean Corpuscular Hgb 27.8 pg (27.0-32.0); Mean Corpuscular Volume 89.6 fL (81-99); Mean Platelet Vol. 8.8 fl (6.2-12.0); Monocyte# 0.49 X10^3/uL; Monocyte% 8.3 % (0-10); NRBC Flagged by Analyzer 0 % (0-5); Neutrophil # 2.82 X10^3/uL (2.7-7.7); Neutrophil % 47.8 % (47-70); Platelet Count 276 K/mm3 (150-450); RBC Distribution Width CV 12.3 % (11.6-14.6); RBC Distribution Width SD 40.7 fl (35.1-43.9); Red Blood Count 4.24 M/mm3 (4.2-5.4); White Blood Count 5.9 K/mm3 (4.4-11.0)
[2023-06-12 17:11] LABS: D-Dimer Quantitative (DVT/PE) 0.35 FEU/ug/m (0.27-0.49)
[2023-06-12 17:13] LABS: Anion Gap 1 (5-15); BUN 15 mg/dL (7-18); BUN/Creat Ratio 15.4 RATIO (10-20); Calcium,Total 9.1 mg/dL (8.5-10.1); Chloride 108 mmol/L (98-107); Creatinine, Serum 0.98 mg/dL (0.55-1.02); EST Glomerular Filtration Rate 75 mL/min (>60); Est Glom Filt Rate - Afr Amer 91 mL/min (>60); Estimated Creatinine Clearance 106.13 ml/min; Glucose 88 mg/dL (74-106); Potassium 3.9 mmol/L (3.5-5.1); Sodium Level 138 mmol/L (136-145); Troponin-I HS 3 pg/mL (3.0-54.0)
--- NOTE | 2023-06-12 17:18 | RAD_ITS ---
INDICATION: chest pain EXAMINATION/TECHNIQUE: X-RAY - XR Chest 1 View COMPARISON: 02/05/2019. FINDINGS: The lungs are clear. The cardiomediastinal silhouette is unremarkable. No pleural effusion or pneumothorax. No acute osseous abnormalities. RAD/Chest 1 View (Portable) IMPRESSION: No acute radiographic abnormalities. Electronically Signed: Tad Longoria MD at 18:56 EST ,
[2023-06-12 18:22] VITALS: BP 108/74; PULSE 76; RESP 18; O2SAT 97
== END 2023-06-12 19:03 | disposition home or self-care (01) ==
PROVIDERS: Physician Assistant; Emergency Provider Emergency Medicine; Visit Provider Emergency Medicine
DX: R07.9 Chest pain, unspecified (principal); F41.9 Anxiety disorder, unspecified; F32.A Depression, unspecified; Z79.899 Other long term (current) drug therapy
CPT/HCPCS: 71045; 80048; 84484; 85025; 85379; 93005; 99284; A4216

== ENCOUNTER 2024-06-24 06:24 | Emergency (ER) | payer MEDICAID, SELFPAY ==
[2024-06-24 06:24] VITALS: BP 115/86; PULSE 51; RESP 16; TEMP 37; O2SAT 100; BMI 34.8
--- NOTE | 2024-06-24 06:50 | CT_ITS ---
EXAM: CT HEAD WITHOUT INTRAVENOUS CONTRAST CLINICAL INDICATION: headache, blurry vision TECHNIQUE: Multiple axial images were obtained of the head without intravenous contrast. This CT exam was performed using one or more of the following dose reduction techniques: automated exposure control, adjustment of the mA and/or kV according to patient size, and/or use of iterative reconstruction technique. COMPARISON: CT Head dated 05/24/2022 FINDINGS: BRAIN AND EXTRA-AXIAL SPACES: Normal. Normal brain attenuation. No intra- or extra-axial hemorrhage. No acute infarct. No intracranial mass or mass effect. There is preservation of the mccray/white matter interface. Posterior fossa structures are unremarkable. Ventricles are appropriate for age. No hydrocephalus. Basal cisterns are patent. BONES/JOINTS: Normal calvarium. SINUSES: Mild mucosal thickening within the maxillary sinuses. 8mm mucous retention cyst within the right sphenoid sinus. MASTOID AIR CELLS: Normal. Clear. CT/Brain/Head without Contrast IMPRESSION: No acute intracranial abnormality. Electronically Signed: Lewis Garcia MD at 8:43 EST ,
[2024-06-24] MEDS: Ketorolac 30 MG/ML Syringe IV (07:12)
[2024-06-24] MEDS: 0.9% Normal Saline (1000mL) 1,000 ML 999 ML IV (07:12)
[2024-06-24] MEDS: DiphenhydrAMINE 50 MG/ML Syringe IV (07:13)
[2024-06-24] MEDS: Metoclopramide 10 MG/2 ML Vial IV (07:14)
--- NOTE | 2024-06-24 07:14 | EDS_ITS ---
HPI History of Present Illness Chief Complaint: Headache Informant: patient and EMS Narrative Narrative: Patient is a 23-year-old female with past medical history of anxiety depression GERD and POTS. She states that last night she had a mild headache along the le ft side of her head and denies any recent trauma or alcohol ingestion. She states this morning it felt worse in severity and she noticed there was blurry/tunnel vision and light sensitivity. She states she took [id number] medication without symptom improvement and secondary to this comes in for evaluation [facility] Medical History depression Depression Family history of hearing loss at age younger than 7 years Chlamydia infection affecting Infertility Anxiety Gastric reflux Difficulty balancing Asthma Home Medications ?Medication ?Instructions ?Recorded ?Last Taken ?Type albuterol sulfate 90 mcg/actuation 2 puff inhalation Q6H PRN asthma 04/26/23 Unknown History aerosol inhaler (Ventolin HFA) acetaminophen 500 mg tablet 1,000 mg (2 x 500 mg) PO Q6H #0 04/28/23 Unknown Rx tabs ibuprofen 600 mg tablet 600 mg PO Q6H #0 tabs 04/28/23 Unknown Rx sennosides 8.6 mg-docusate sodium 1 - 2 tab PO DAILY #0 tabs 04/28/23 06/12/23 Rx 50 mg tablet (Stool Softener-Stimulant Laxative) escitalopram oxalate 10 mg tablet 10 mg PO DAILY 06/12/23 06/12/23 History nystatin 100,000 unit/gram topical 1 applic topical TID 06/12/23 06/12/23 History powder (Nystop) Allergy/AdvReac Type Severity Reaction Status Date / Time amoxicillin (Amoxicillin) Allergy Hives Verified 06/24/24 06:24 codeine Allergy Nausea Verified 06/24/24 06:24 Penicillins Allergy Hives Verified 06/24/24 06:24 Family History Grandfather Heart disease Grandmother Heart disease Mother Breast cancer Mitral valve prolapse Surgical History Delivery by section History of knee surgery Social History Smoking Status: Never smoker ROS ROS ED Constitutional Constitutional ED: Denies chills or fever(s) Eyes Eyes: Reports other Details: Positive photophobia ENT ENT ED: Denies rhinorrhea or sore throat Cardiovascular Cardiovascular: Denies chest pain Respiratory/Chest Respiratory/Chest: Denies cough or dyspnea Gastrointestinal Gastrointestinal: Denies abdominal pain, diarrhea, nausea or vomiting Genitourinary Genitourinary ED: Denies dysuria Musculoskeletal Musculoskeletal: Denies neck pain Integumentary Denies rash Neurologic Neurologic: Reports headache(s); Denies paresthesias or weakness Hematologic/Lymphatic Hematologic/Lymphatic: Denies easy bleeding or easy bruising EXAM Physical Exam Const Vital Signs: 06/24/24 06:24 Temperature 98.6 F Temperature Source Oral Pulse Rate 51 L Respiratory Rate 16 Blood Pressure 115/86 H Blood Pressure Mean 95 Pulse Ox 100 Oxygen Delivery Method Room Air Positive well nourished, well developed and obese General Appearance ED: well developed; Negative for pallor Nutritional Appearance: obese HEENT HEENT Narrative: Normocephalic atraumatic No overlying soft tissue changes to suggest trauma or infection No shingles rash noted There is reproducible pain along the left temporal/parietal portion of the scalp with palpation Eyes PERRL and EOMs intact bilaterally General Eye ED: Negative for scleral icterus Neck supple Neck Narrative: No nuchal rigidity or meningeal signs Resp normal respiratory effort and clear to auscultation bilaterally Cardio regular rate and regular rhythm Extremity normal to inspection Neuro oriented x3, CN's II-XII intact bilaterally and no sensory deficits noted Neuro Narrative: GCS of 15 Cranial nerves II through XII are grossly intact there are no focal neurologic deficits No pronator drift no dysmetria no truncal ataxia NIH stroke scale score of 0 Sensorium / Orientation: alert Motor Exam: strength 5/5 throughout Psych mental status grossly normal Skin no rashes or lesions noted and no wounds General Skin Exam: Negative for jaundice or pallor MDM MDM MDM Narrative Medical decision making narrative: Patient arrived to the ER with stable vitals. She denied any recent trauma to suggest the cause of her headache being a skull fracture versus traumatic subarachnoid or subdural hemorrhage. There is no overlying soft tissue changes to suggest shingles cellulitis or abscess. The patient does report that there is a family history of brain tumor in her mother. She states she has not had a CT scan of her head before. The history and exam with unilateral head and pain light sensitivity is most consistent with migraine headache. However in order to ensure there is no potential bleed or mass as the cause of her headache a CT will be obtained. Patient was given IV fluids IV Toradol Benadryl and Reglan for headache relief. At this time the results of the CT scan as well as her response to headache treatment is still pending. Therefore the patient be signed out to the day physician Dr. Connolly for reevaluation I do feel that if head CT does not reveal bleed or mass the patient should otherwise be safe for discharge as her history and exam indicates this is migraine headache and not a spontaneous subarachnoid or subdural bleed infectious process or mass effect History & Record Review Discussion w/independent historian: Patient Discharge Plan Triage Chief Complaint: Headache ED Provider: Luís Mason Dx/Rx/DC Orders Clinical Impression: Cephalgia, GERD (gastroesophageal reflux disease), Anxiety and depression Instructions: Understanding Headache Pain, ED, Migraine (Classical) Prescriptions: No Action albuterol sulfate [Ventolin HFA] 90 mcg/actuation HFA aerosol inhaler 2 puff INHALATION Q6H PRN (Reason: asthma) Patient Comments: INHALE 2 PUFFS BY MOUTH DIRECTED EVERY 6 HOURS NEEDED sennosides-docusate sodium [Stool Softener-Stimulant Laxat] 8.6-50 mg Tablet 1 - 2 tab PO DAILY Qty: 0 0RF acetaminophen 500 mg Tablet 1,000 mg PO Q6H Qty: 0 0RF ibuprofen 600 mg Tablet 600 mg PO Q6H Qty: 0 0RF escitalopram oxalate 10 mg tablet 10 mg PO DAILY nystatin [Nystop] 100,000 unit/gram powder 1 applic TOPICAL TID Patient Comments: OVER SCAR Primary Care Provider: Care Physician,No Primary Referrals: Yandel Hallman MD [Med Staff - Active Staff] - Care Physician,No Primary [Primary Care Provider] - Activity Restrictions/Additional Instructions: Your head CT revealed no signs of brain mass/tumor or bleed. This indicates your headache is most likely migraine in nature. If symptoms return please take 4 [id number] ibuprofen to [id number] Benadryl and drink a large glass of water and lay down in a dark room to see if this helps reduce your symptoms. Follow-up with your family doctor for repeat evaluation and return to the ER should you have any further concerns Print Language: Sinhala Disposition Disposition: Home, Self Care
[2024-06-24 09:07] VITALS: BP 106/70; PULSE 63; RESP 16; TEMP 36.5; O2SAT 100
== END 2024-06-24 09:07 | disposition home or self-care (01) ==
PROVIDERS: Emergency Provider Emergency Medicine; Visit Provider Emergency Medicine
DX: R51.9 Headache, unspecified (principal); H53.8 Other visual disturbances; F41.9 Anxiety disorder, unspecified; F32.A Depression, unspecified; K21.9 Gastro-esophageal reflux disease without esophagitis; E66.9 Obesity, unspecified; G90.A Postural orthostatic tachycardia syndrome [POTS]; J45.909 Unspecified asthma, uncomplicated; Z88.0 Allergy status to penicillin; Z84.89 Family history of other specified conditions; Z79.899 Other long term (current) drug therapy
CPT/HCPCS: 70450; 96361; 96374; 96375; 99285; A4216

== ENCOUNTER 2024-07-27 15:15 | Emergency (ER) | payer OTHER, SELFPAY ==
[2024-07-27 15:17] VITALS: BP 112/79; PULSE 85; RESP 14; TEMP 36.2; O2SAT 100; BMI 34.4
--- NOTE | 2024-07-27 19:48 | EDS_ITS ---
HPI History of Present Illness Chief Complaint: Laceration Informant: patient Narrative Narrative: [id number] presents work-related injury occurring 2 days ago. Using tomato slicer which she cut the tip of her thumb. She has been having to work and would reopen. 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 Her tetanus is up-to-date. No anticoagulants. PFSH PFSH Medical History depression Depression Family history of hearing loss at age younger than 7 years Chlamydia infection affecting Infertility Anxiety Gastric reflux Difficulty balancing Asthma Home Medications ?Medication ?Instructions ?Recorded ?Last Taken ?Type albuterol sulfate 90 mcg/actuation 2 puff inhalation Q 6H PRN asthma 04/26/23 Unknown History aerosol inhaler (Ventolin HFA) acetaminophen 500 mg tablet 1,000 mg (2 x 500 mg) PO Q 6H #0 04/28/23 Unknown Rx tabs ibuprofen 600 mg tablet 600 mg PO Q6H #0 tabs Unknown Rx sennosides 8.6 mg-docusate sodium 1 - 2 tab PO DAILY # 0 tabs 04/28/23 06/12/23 Rx 50 mg tablet (Stool Softener-Stimulant Laxative) escitalopram oxalate 10 mg tablet 10 mg PO DAILY 06/1206/12/23 History nystatin 100,000 unit/gram topical 1 applic topical TI D 06/12/23 06/12/23 History powder (Nystop) Allergy/AdvReac Type Severity Reaction Status Date / Time amoxicillin (Amoxicillin) Allergy Hives Verified 07/27/24 15:16 codeine Allergy Nausea Verified 07/27/24 15:16 Penicillins Allergy Hives Verified 07/27/24 15:16 Family History Grandfather Heart disease Grandmother Heart disease Mother Breast cancer Mitral valve prolapse Surgical History Delivery by section History of knee surgery Social History Smoking Status: Never smoker ROS ROS ED Constitutional Constitutional ED: Denies fever(s) Cardiovascular Cardiovascular: Denies none Respiratory/Chest Respiratory/Chest: Denies cough Musculoskeletal Musculoskeletal: Denies none Integumentary Reports wounds; Denies rash Neurologic Neurologic: Denies none EXAM Physical Exam Const Vital Signs: 07/27/24 15:17 Temperature 97.2 F L Temperature Source Temporal Pulse Rate 85 Respiratory Rate 14 Blood Pressure 112/79 Blood Pressure Mean 90 Pulse Ox 100 Oxygen Delivery Method Room Air Positive well nourished and well developed General Appearance ED: well developed and NAD HEENT Reports moist mucous membranes normocephalic and atraumatic Eyes General Eye ED: Yes normal appearance of both eyes Neck full ROM Chest Wall Chest: Negative for tenderness Resp normal respiratory effort and normal air movement Effort and Inspection: symmetric chest movement; Negative for respiratory distress Cardio regular rate, regular rhythm and no murmurs Peripheral Pulses: pulses 2+ throughout GI normal to inspection, nondistended, normoactive bowel sounds and non-tender Palpation: Negative for guarding or rebound tenderness present Extremity Extremity Narrative: Left hand thumb: Laceration less than 1 cm with no active bleeding. No drainage no streaking. General Extremety ED: Negative for edema or tenderness General Extremity: Negative for edema Neuro oriented x3 and no sensory deficits noted Sensorium / Orientation: awake and alert Skin no rashes or lesions noted and no wounds MDM MDM MDM Narrative Medical decision making narrative: Interventions / MDM: Differential diagnosis: Left thumb laceration, work-related injury Diagnosis considered but do not suspect: N/A My EKG interpretation: N/A Imaging independently reviewed and interpreted by myself: N/A External documents reviewed: N/A Test considered but not ordered:N/A ED course: Laceration less than 1 cm no active bleeding. Recurrent bleeding due to her work. Discussed due to injury occurring 48 hours ago, no closure as infection risk increases. Dressing placed, cage splint provided. Appropriate work restrictions with no handling of food with injured hand. She is given follow-up with occupational health. Re-evaluation: stable Disposition discussed with patient/family/significant other: Patient Case discussed with consulting clinician: N/A This note was generated with [employer] dictation software. It may contain incorrect words, spelling, and punctuation that were not noted in checking the note before signing. Discharge Plan Triage Chief Complaint: Laceration ED Provider: Jose D Main Dx/Rx/DC Orders Clinical Impression: Laceration of left thumb, Work related injury Instructions: ED Laceration, Old: Not Sutured Prescriptions: No Action albuterol sulfate [Ventolin HFA] 90 mcg/actuation HFA aerosol inhaler 2 puff INHALATION Q6H PRN (Reason: asthma) Patient Comments: INHALE 2 PUFFS BY MOUTH DIRECTED EVERY 6 HOURS NEEDED sennosides-docusate sodium [Stool Softener-Stimulant Laxat] 8.6-50 mg Tablet 1 - 2 tab PO DAILY Qty: 0 0RF acetaminophen 500 mg Tablet 1,000 mg PO Q6H Qty: 0 0RF ibuprofen 600 mg Tablet 600 mg PO Q6H Qty: 0 0RF escitalopram oxalate 10 mg tablet 10 mg PO DAILY nystatin [Nystop] 100,000 unit/gram powder 1 applic TOPICAL TID Patient Comments: OVER SCAR Primary Care Provider: Harini Wesley Referrals: Harini Wesley MD [Primary Care Provider] - Activity Restrictions/Additional Instructions: Dressing, were splint with daily wound care. Follow-up with occupational health or now clinic. Work restrictions as given. Print Language: Greenlandic Disposition Disposition: Home, Self Care Discharge Date/Time: 07/27/24 20:34
== END 2024-07-27 20:34 | disposition home or self-care (01) ==
LOC: ED 20:26
PROVIDERS: Emergency Provider Emergency Medicine; PCP Internal Medicine; Visit Provider Emergency Medicine
DX: S61.012A Laceration without foreign body of left thumb without damage to nail, initial encounter (principal); W26.8XXA Contact with other sharp object(s), not elsewhere classified, initial encounter; Y99.0 Civilian activity done for income or pay; F32.A Depression, unspecified; F41.9 Anxiety disorder, unspecified; K21.9 Gastro-esophageal reflux disease without esophagitis; J45.909 Unspecified asthma, uncomplicated; Z88.0 Allergy status to penicillin; Z79.899 Other long term (current) drug therapy
CPT/HCPCS: 99283

== ENCOUNTER 2025-03-05 15:34 | Emergency (ER) | payer MEDICAID, SELFPAY ==
[2025-03-05 15:37] VITALS: BP 118/81; PULSE 90; RESP 18; TEMP 36.6; O2SAT 99; BMI 36.7
--- NOTE | 2025-03-05 16:04 | EX.ED.DYSGE1 ---
HPI History of Present Illness Chief Complaint: Flank Pain Informant: patient Onset/Context/Timing Onset: Days (2) Context: Sudden Onset Timing: Intermittent Quality: Stabbing Location: Right flank Worsened by: Nothing Relieved by: Nothing Narrative Narrative: Patient presents with right flank pain that has been intermittent over the last 2 days. Patient states it comes on rather suddenly. Patient states it is stabbing. Patient states it is over the right flank area. Patient denies any radiation of the pain. Patient states nothing makes it worse and nothing makes it better. Patient admits to some nausea but denies any vomiting. Patient denies any dysuria, frequency, or hematuria. Patient denies any fevers or chills. [facility] Medical History depression Depression Family history of hearing loss at age younger than 7 years Chlamydia infection affecting Infertility Anxiety Gastric reflux Difficulty balancing Asthma Home Medications ?Medication ?Instructions ?Recorded ?Last Taken ?Type albuterol sulfate 90 mcg/actuation 2 puff inhalation Q6H PRN asthma 04/26/23 Unknown History aerosol inhaler (Ventolin HFA) acetaminophen 500 mg tablet 1,000 mg (2 x 500 mg) PO Q6H #0 04/28/23 Unknown Rx tabs ibuprofen 600 mg tablet 600 mg PO Q6H #0 tabs 04/28/23 Unknown Rx sennosides 8.6 mg-docusate sodium 1 - 2 tab PO DAILY #0 tabs 04/28/23 06/12/23 Rx 50 mg tablet (Stool Softener-Stimulant Laxative) escitalopram oxalate 10 mg tablet 10 mg PO DAILY 06/12/23 06/12/23 History nystatin 100,000 unit/gram topical 1 applic topical TID 06/12/23 06/12/23 History powder (Nystop) naproxen 500 mg tablet (Naprosyn) 500 mg PO BID PRN pain #20 tabs 03/05/25 Unknown Rx Allergy/AdvReac Type Severity Reaction Status Date / Time amoxicillin (Amoxicillin) Allergy Hives Verified 03/05/25 15:37 codeine Allergy Nausea Verified 03/05/25 15:37 Penicillins Allergy Hives Verified 03/05/25 15:37 Milk Containing Products AdvReac Upset Verified 03/05/25 15:37 (Dairy) Stomach Family History Grandfather Heart disease Grandmother Heart disease Mother Breast cancer Mitral valve prolapse Surgical History Delivery by section History of knee surgery Social History Smoking Status: Never smoker ROS ROS ED Constitutional Constitutional ED: Denies chills or fever(s) Eyes Eyes: Denies blurry vision or change in vision ENT ENT ED: Denies rhinorrhea or sore throat Cardiovascular Cardiovascular: Denies chest pain or palpitations Respiratory/Chest Respiratory/Chest: Denies cough or dyspnea Gastrointestinal Gastrointestinal: Reports nausea; Denies vomiting Genitourinary Genitourinary ED: Denies dysuria or hematuria Musculoskeletal Musculoskeletal: Reports back pain; Denies neck pain Integumentary Denies abscess or rash Neurologic Neurologic: Denies headache(s) or weakness Allergic/Immunologic Allergic/Immunologic ED: Denies mouth swelling or urticaria EXAM Physical Exam Const Vital Signs: 03/05/25 15:37 03/05/25 17:34 03/05/25 18:59 Temperature 97.8 F Temperature Source Oral Pulse Rate 90 74 54 L Respiratory Rate 18 Blood Pressure 118/81 H 103/64 107/81 H Blood Pressure Mean 93 77 89 Pulse Ox 99 98 100 Oxygen Delivery Method Room Air Room Air 03/05/25 20:05 Temperature 97.8 F Temperature Source Pulse Rate 54 L Respiratory Rate 18 Blood Pressure 107/69 Blood Pressure Mean 81 Pulse Ox 100 Oxygen Delivery Method Positive well nourished and well developed General Appearance ED: well developed and NAD HEENT Reports moist mucous membranes Neck supple and no JVD Resp normal respiratory effort and clear to auscultation bilaterally Cardio regular rate and regular rhythm GI non-tender and non-distended Palpation: soft Back/Spine General Back: CVA tenderness right Neuro oriented x3, CN's II-XII intact bilaterally and no sensory deficits noted Sensorium / Orientation: alert Motor Exam: strength 5/5 throughout Psych mental status grossly normal MDM MDM MDM Narrative Medical decision making narrative: Differential diagnosis includes ureteral calculus, pyelonephritis, dehydration, electrolyte abnormality, and anxiety. CBC will be obtained to assess for leukocytosis and anemia. Comprehensive metabolic profile will be obtained to assess for hepatic function, renal function, and electrolyte abnormality. Urinalysis will be obtained to assess for urinary tract infection and hematuria. Serum hCG will be obtained to assess for . CT scan of the abdomen and pelvis will be obtained to assess for ureteral calculus and pyelonephritis. Lab Data Attestation: I reviewed the patient's lab results. Lab results narrative: CBC was reviewed and was within normal limits. Comprehensive metabolic profile was reviewed and was within normal limits. Serum hCG was reviewed and was negative. Urinalysis was reviewed. There is no evidence of urinary tract infection or hematuria. Labs: Laboratory Results - last 24 hr 03/05/25 03/05/25 16:25 16:50 WBC 8.7 RBC 4.60 Hgb 12.5 Hct 39.1 MCV 85.0 MCH 27.2 MCHC 32.0 RDW Std Deviation 41.7 RDW Coeff of Zulma 13.5 Plt Count 300 MPV 8.9 Immature Gran % (Auto) 0.200 Neut % (Auto) 55.2 Lymph % (Auto) 33.4 Rogers % (Auto) 7.9 Eos % (Auto) 2.5 Baso % (Auto) 0.8 Absolute Neuts (auto) 4.8 Absolute Lymphs (auto) 2.89 Nucleated RBC % 0 Sodium 139 Potassium 3.9 Chloride 105 Carbon Dioxide 25.0 Anion Gap 9 BUN 14 Creatinine 0.74 Estim Creat Clear Calc 110.60 Est GFR (MDRD) Non-Af 115 BUN/Creatinine Ratio 19.1 Glucose 97 Calcium 9.4 Total Bilirubin 0.24 AST 18 ALT 11 Alkaline Phosphatase 53 Total Protein 7.6 Albumin 4.3 Globulin 3.3 Albumin/Globulin Ratio 1.3 Serum , Qual NEGATIVE Urine Color Yellow Urine Clarity Clear Urine pH 6.0 Ur Specific [place] 1.025 Urine Protein 15 H Urine Glucose (UA) Normal Urine Ketones Negative Urine Occult Blood 50 H Urine Nitrite Negative Urine Bilirubin Negative Urine Urobilinogen Normal Ur Leukocyte Esterase 25 H Urine RBC 0-5 SEEN Urine WBC 0-5 SEEN Ur Squamous Epith Cells 0-5 SEEN Urine Bacteria 0 SEEN Urine Mucus 0 SEEN Radiography Diagnostic Testing: Clinical Impression(s) from Imaging Studies Abdomen/Pelvis CT 03/05/25 17:27 IMPRESSION: No acute or active inflammatory intra-abdominal pathology. No urinary tract calculi or hydroureteronephrosis. Reading Location: [facility] CT scan of the abdomen and pelvis was obtained. There is no acute intra-abdominal abnormality noted. There is no ureteral calculus. There is no hydronephrosis or hydroureter. There is no free air or free fluid. This was interpreted by the radiologist and was also independently reviewed by myself. Treatment and Re-Evaluation :: Patient was given IV fluids, morphine, and Zofran. Patient declined the morphine. Patient is feeling better on reevaluation. Patient was given a prescription for Naprosyn to take as needed for pain. Patient was instructed to follow-up with her primary care physician in 5 to 7 days. Patient understood and was agreeable with the plan. All questions were answered. Discharge Plan Triage Chief Complaint: Flank Pain ED Provider: Jayce Connolly Dx/Rx/DC Orders Clinical Impression: Acute right flank pain Instructions: ED Flank Pain with Uncertain Cause Prescriptions: New naproxen [Naprosyn] 500 mg tablet 500 mg PO BID PRN (Reason: pain) Qty: 20 0RF No Action albuterol sulfate [Ventolin HFA] 90 mcg/actuation HFA aerosol inhaler 2 puff INHALATION Q6H PRN (Reason: asthma) Patient Comments: INHALE 2 PUFFS BY MOUTH DIRECTED EVERY 6 HOURS NEEDED sennosides-docusate sodium [Stool Softener-Stimulant Laxat] 8.6-50 mg Tablet 1 - 2 tab PO DAILY Qty: 0 0RF acetaminophen 500 mg Tablet 1,000 mg PO Q6H Qty: 0 0RF ibuprofen 600 mg Tablet 600 mg PO Q6H Qty: 0 0RF escitalopram oxalate 10 mg tablet 10 mg PO DAILY nystatin [Nystop] 100,000 unit/gram powder 1 applic TOPICAL TID Patient Comments: OVER SCAR Primary Care Provider: Harini Wesley Referrals: Harini Wesley MD [Primary Care Provider] - 5-7 Days Print Language: Maldivian Disposition Disposition: Home, Self Care Discharge Date/Time: 03/05/25 20:09
[2025-03-05] MEDS: 0.9% Normal Saline (1000mL) 1,000 ML 1000 ML IV (16:38)
[2025-03-05 16:45] LABS: Hematocrit 39.1 % (37-47); Hemoglobin 12.5 g/dL (12.0-15.0); Immature Granulocytes Count 0.020 X10^3/uL (0.0-0.0); Mean Corp Hgb Conc 32.0 g/dL (32-36); Mean Corpuscular Volume 85.0 fL (81-99); Mean Platelet Vol. 8.9 fl (6.2-12.0); NRBC Flagged by Analyzer 0 % (0-5); Platelet Count 300 K/mm3 (150-450); RBC Distribution Width CV 13.5 % (11.6-14.6); RBC Distribution Width SD 41.7 fl (35.1-43.9); Red Blood Count 4.60 M/mm3 (4.2-5.4); White Blood Count 8.7 K/mm3 (4.4-11.0)
[2025-03-05 16:47] LABS: Internal QC Validated? YES +Cl - CLEAR BKGD; Pregnancy, Serum, hCG Quali. NEGATIVE Negative; Record Kit Lot#, Serum Preg. 964736
[2025-03-05 16:57] LABS: Mucous, Urine 0 SEEN /hpf (<or=2+)
[2025-03-05 17:03] LABS: Color, Urine Yellow (Yellow); Glucose, Dipstick Normal (Normal); Ketone-Dipstick Negative (Negative); Leukocyte Esterase-Dipstick 25 /ul (Negative); Nitrite-Dipstick Negative (Negative); Occult Blood-Urine 50 /ul (Negative); Protein-Dipstick 15 mg/dl (Negative); Specific Gravity, Urine 1.025 (1.002-1.030); Urine Bilirubin Dipstick Negative (Negative)
[2025-03-05 17:10] LABS: AST(SGOT) 18 U/L (<=31); Alanine Aminotransfer ALT/SGPT 11 U/L (<=34); Albumin, Serum 4.3 g/dL (3.5-5.0); Alkaline Phosphatase 53 U/L (35-104); Anion Gap 9 (5-15); BUN 14 mg/dL (4-19); BUN/Creat Ratio 19.1 RATIO (10-20); Calcium,Total 9.4 mg/dL (7.6-11.0); Carbon Dioxide 25.0 mmol/L (21.0-32.0); Chloride 105 mmol/L (98-108); Estimated Creatinine Clearance 110.60 ml/min (50-250); Globulin 3.3 g/dL (2.2-4.2); Glucose 97 mg/dL (70-99); Potassium 3.9 mmol/L (3.3-5.1)
--- NOTE | 2025-03-05 17:27 | CT_ITS ---
PROCEDURE: CT ABDOMEN/PELVIS WITHOUT CONTRAST 03/05/2025 REASON FOR EXAM: RIGHT FLANK PAIN TECHNIQUE: Procedure Code: CTABDPEL Modality: CT Procedure: ABDOMEN/PELVIS WITHOUT CONT Noncontrast technique limits evaluation of the abdominal and pelvic viscera. Coronal and Sagittal reconstruction series were provided. One or more dose reduction techniques were used (e.g., Automated exposure control, adjustment of the mA and/or kV according to patient size, use of iterative reconstruction technique). RADIATION DOSE SUMMARY: CTDlvol: 17.66 mGy DLP: 842.57 mGycm COMPARISON: 12/14/2018 FINDINGS: Lung bases: Clear. Liver: Unremarkable. Gallbladder: Unremarkable. Spleen: Unremarkable. Pancreas: Unremarkable. Adrenals: Unremarkable. Kidneys: Unremarkable. No urolithiasis or hydroureteronephrosis. Bladder: Unremarkable. No bladder calculus or wall thickening. Reproductive Organs: Unremarkable appearance of the uterus and adnexae. Bowel: No evidence of obstruction or active inflammatory process. Normal appendix. Lymph nodes: No suspicious lymph node enlargement. Increased number of nonspecific shotty subcentimeter mesenteric lymph nodes in the midabdomen, likely reactive. Vasculature: Normal caliber abdominal aorta and IVC. Peritoneum / Retroperitoneum: No free fluid or air. Bones: Unremarkable. CT/Abdomen/Pelvis without Cont IMPRESSION: No acute or active inflammatory intra-abdominal pathology. No urinary tract calculi or hydroureteronephrosis. Reading Location: [facility]
[2025-03-05 17:34] VITALS: BP 103/64; PULSE 74; O2SAT 98
[2025-03-05 18:28] LABS: Red Blood Cells-Urine 0-5 SEEN /hpf (0-5); Squamous Epithelial Cells - UA 0-5 SEEN /hpf (5-10)
[2025-03-05 18:59] VITALS: BP 107/81; PULSE 54; O2SAT 100
[2025-03-05 20:05] VITALS: BP 107/69; PULSE 54; RESP 18; TEMP 36.6; O2SAT 100
== END 2025-03-05 20:09 | disposition home or self-care (01) ==
PROVIDERS: Emergency Provider Emergency Medicine; PCP Internal Medicine; Visit Provider Emergency Medicine
DX: R10.9 Unspecified abdominal pain (principal); R11.0 Nausea; F32.A Depression, unspecified; F41.9 Anxiety disorder, unspecified; J45.909 Unspecified asthma, uncomplicated; Z79.899 Other long term (current) drug therapy
CPT/HCPCS: 74176; 80053; 81001; 84703; 85025; 96361; 96374; 99283; J2405

== ENCOUNTER 2025-03-18 21:47 | Emergency (ER) | payer MEDICAID, SELFPAY ==
[2025-03-18 21:48] VITALS: BP 112/76
[2025-03-18 21:49] VITALS: PULSE 88; RESP 13; TEMP 37.2; O2SAT 100; BMI 37.2
--- NOTE | 2025-03-18 22:16 | EKG12_ITS ---
Test Reason : DYSRHYTHMIA Blood Pressure : */* mmHG Vent. Rate : 64 BPM Atrial Rate : 64 BPM P-R Int : 130 ms QRS Dur : 84 ms QT Int : 390 ms P-R-T Axes : 17 0 12 degrees QTcB Int : 402 ms Normal sinus rhythm with sinus arrhythmia Minimal voltage criteria for LVH, may be normal variant ( R in aVL ) Borderline ECG Confirmed by BARRETT ANGLIN, BISHNU ([id number]), video tape editor YG WRIGHT ([id number]) on 03/19/2025 11:01:14 AM Referred By: Confirmed By: BISHNU HYDE MD
--- NOTE | 2025-03-18 22:26 | RAD_ITS ---
PROCEDURE: CHEST PA AND LATERAL 03/18/2025 REASON FOR EXAM: CHEST PAIN TECHNIQUE: Procedure Code: RADCXR Modality: DX Procedure: CHEST PA AND LATERAL COMPARISON: 06/12/2023 FINDINGS: Lungs/Pleura: Clear. No pneumothorax or pleural effusion. Heart/Mediastinum: Normal in size. Bones/Soft tissues: Unremarkable. RAD/Chest PA and Lateral IMPRESSION: No acute cardiopulmonary disease. Reading Location: [id number]
[2025-03-18 22:33] LABS: Hematocrit 38.9 % (37-47); Hemoglobin 12.8 g/dL (12.0-15.0); Immature Granulocytes Count 0.040 X10^3/uL (0.0-0.0); Mean Corp Hgb Conc 32.9 g/dL (32-36); Mean Corpuscular Volume 85.5 fL (81-99); Mean Platelet Vol. 9.3 fl (6.2-12.0); NRBC Flagged by Analyzer 0 % (0-5); Platelet Count 291 K/mm3 (150-450); RBC Distribution Width CV 13.6 % (11.6-14.6); RBC Distribution Width SD 42.4 fl (35.1-43.9); Red Blood Count 4.55 M/mm3 (4.2-5.4); White Blood Count 8.3 K/mm3 (4.4-11.0)
--- OUTSIDE RECORDS SUMMARY | 2025-03-18 22:34 | XMS RPT_ITS | CCD ---
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 Role Phone Sivan Nickerson Attending UnavailZENY Romero Primary Care Unavailable Unavailable Primary Care Provider Unavailabl e Unavailable Primary Care Provider Unavailabl KEYON Thurman Attending Unavailable Unavailable Primary Care Provider Unavailabl e WISBRICE, LISE Attending Unavailable WISWELL, LISE Attending Unavailable WISWELL, LISE Attending Unavailable WISWELL, LISE Referring Unavailable WISWELL, LISE Referring Unavailable CAROLE QUINTERO Attending Unavailable WISWELL, LISE Attending Unavailable CONSTANCE MONCADA Attending Unavailable WISWELL, LISE Attending Unavailable TIZZANOWOLFGANG Attending Unavailable TIWOLFGANG CHRISTENSEN Referring Unavailable WISWELL, LISE Attending Unavailable WISWELL, LISE Referring Unavailable SHERIN DECKER Attending Unavailable Bonezzi, Harini Primary Care Unavailable Jayce Connolly Attending Unavailable Líus Mason Attending Unavailable Care Physician, No Primary Primary Care Unava ilable Jose D Main Attending Unavailable Bonezzi, Harini Primary Care Unavailable Allergies Allergy Classification Reported Allergen(s) Allergy Type Date of Onset Reaction(s) Facility (20 sources) Amoxicillin; Translations: [AMOXICILLIN] Drug Allergy 9 [facility] (2 sources) Penicillins; Translations: [Penicillins] Propensity to adverse reactions to drug 2 [facility] Work Phone: (20 sources) Codeine; Translations: [CODEINE] Drug Allergy 2 [facility] Work Phone: (1 source) Amoxicillin Drug Allergy 5 [facility] Rep[facility] (1 source) Codeine Drug Allergy 5 [facility] (1 source) Milk Containing Products (Dairy) Drug allergy (disorder) 5 [facility] Medications Current Medications Medication Drug Class(es) Dates Sig (Normalized) Sig (Original) Acetaminophen (1 source) Start: 11-02-2021 acetaminophen (TYLENOL) tablet 650 mg Beclomethasone (20 sources) Corticosteroid BECLOMETHASONE DIPROPIONATE (QVAR INHALATION) Inhale as instructed. Active BECLOMETHASONE D IPROPIONATE (QVAR INHALATION) Inhale as instructed. 0 Active Comment on above: Inhale as instructed . betamethasone 3 mg/ml / betamethasone acetate 3 mg/ml injectable suspension (1 source) Corticosteroid Start: 11-03-19 End: 11-05-19 betamethasone acetate-betamethason e sodium phosphate (CELESTONE) injection 12 mg Blood-Glucose Meter (1 source) Start: 03-07-20 End: 03-08-20 Blood-Glucose Meter Indications: Abnormal maternal glucose tolerance, antepartum 1 Each as directed for 1 day. 1 Each 0 03/07/2023 03/08/2023 Active Comment on above: 1 Each as directed f or 1 day. calcium chloride 0.0014 meq/ml / potassium chloride 0.004 meq/ml / sodium chloride 0.103 meq/ml / sodium lactate 0.028 meq/ml injectable solution (1 source) Start: 11-04-19 lactated ringers infusion docusate sodium 100 mg oral capsule (7 sources) Start: 06-10-20 take 1 capsule by mouth twice daily docusate sodium (COLACE) 100 mg capsule Indications: Constipation, unspecified constipation type , state Take 1 capsule by mouth two times a day. 30 capsule 2 06/10/2023 Active Start: 05-09-2023 take 1 capsule by mo ut twice daily docusate sodium (COLACE) 100 mg capsule Indications: Constipation, unspecified constipation type , state Take 1 capsule by mouth two times a day. 30 capsule 2 05/09/2023 Active Start: 11-02-2021 take 100 mg by mouth twice daily as needed 100 mg, Oral, 2 TIMES DAILY PRN, Starting on Tammy 11/02/21 at 1901, Until Discontinued, Constipation Do not crush or break. Comment on above: Take 1 capsule by mo uth two times a day. Ethinyl Estradiol / Ferrous fumarate / Norethindrone (3 sources) Estrogen Start: take 1 tablet by mouth once daily, then take 0.05 tablet by mouth once Norethin Diogenes-Eth Estrad-FE (07/13, ,) 1 mg-20 mcg (21)/75 mg (7) per tablet Indications: Encounter for initial prescription of contraceptive pills , Menorrhagia with regular cycle Take 1 tablet by mouth once daily. 84 tablet 4 07/29/2023 Active Comment on above: Take 1 tablet by cristal once daily. ferrous sulfate (4 sources) take 600 mg by mouth every other day ferrous sulfate (IRON ORAL) Take 600 mg by mouth. every other day Active take 600 mg by mouth every other day ferrous sulfate (IRON ORAL) Take 600 mg by mouth. every other day 0 Active Comment on above: Take 600 mg by mouth . every other day FLUoxetine 10 mg oral capsule (3 sources) Serotonin Reuptake Inhibitor Start: 07-29-19 take 1 capsule by mouth once daily FLUoxetine (PROZAC) 10 mg capsule Indications: care and examination , depression Take 1 capsule by mouth once daily. 28 capsule 1 07/29/2023 Active Comment on above: Take 1 capsule by mo [facility] once daily. ibuprofen 600 mg oral tablet (7 sources) Nonsteroidal Anti-inflammatory Drug Start: 05-06-20 take 1 tablet by mouth every six hours as needed ibuprofen (MOTRIN) 600 mg tablet Take 1 tablet by mouth every 6 hours as needed for pain. FOR PAIN. 60 tablet 1 05/06/2023 Active Comment on above: Take 1 tablet by cristal every 6 hours as needed for pain. FOR PAIN. magnesium oxide 400 mg oral tablet (20 sources) Start: 01-25-20 take 1 tablet by mouth once daily magnesium oxide (MAG-OX) 400 mg (241.3 mg magnesium) tablet Indications: 25 weeks gestation of , headache in second trimester Take 1 tablet by mouth once daily. 60 tablet 1 01/24/2023 Active Comment on above: Take 1 tablet by cristal once daily. nystatin 100 unt/mg topical powder (1 source) Polyene Antifungal Start: 06-03-20 End: 07-03-19 nystatin (NYSTOP) powder Indications: Intertrigo Apply 1 application to affected area four times daily. 60 g 0 06/03/2023 07/03/2023 Active Comment on above: Apply 1 application to affected area four times daily. ondansetron (ZOFRAN-ODT) disintegrating tablet 4 mg (1 source) Start: 11-03-19 ondansetron (ZOFRAN-ODT) disintegrating tablet 4 mg polyethylene glycol 3350 [id number] mg powder for oral solution (7 sources) Osmotic Laxative Start: 05-06-20 take 17 g by mouth every twelve hours as needed polyethylene glycol 3350 17 gram/dose powder Take 17 g by mouth two times a day as needed for constipation. 238 g 1 05/06/2023 Active Comment on above: Take 17 g by mouth t wo times a day as needed for constipation. Vit-Fe Fumarate-FA ( 1+1 PO) (1 source) Vit-Fe Fumarate-FA ( 1+1 PO) Take by mouth 0 Active Completed/Discontinued Medications Medication Drug Class(es) Dates Sig (Normalized) Sig (Original) [id number] 200 actuat albuterol 0.09 mg/actuat metered dose inhaler (20 sources) beta2-Adrenergic Agonist Start: 07-20-2022 End: 10-16-2022 take 2 puff(s) by inhalation every six hours as needed albuterol HFA (PROAIR HFA) 90 mcg/actuation inhaler Inhale 2 Puffs as instructed every 6 hours as needed. 1 Each 0 07/20/2022 10/16/2022 Discontinued Start: 11-02-2021 2.5 mg, Nebuli zation, EVERY 6 HOURS PRN, Starting on Tammy 11/02/21 at 1900, Until Discontinued, Wheezing Initiate RT Bronchodilator Protocol: No Start: 03-03-2012 take 2 puff(s) by in halation three times daily as needed for wheezing albuterol 90 mcg/actuation Aero Inhale 2 Puffs as instructed three times daily as needed. FOR WHEEZING AND SHORTNESS OF BREATH. 03/03/2012 Active albuterol HFA (V ENTOLIN HFA) 90 mcg/actuation inhaler Inhale 2 Puffs as instructed. Active Comment on above: Inhale 2 Puffs as in structed three times daily as needed. FOR WHEEZING AND SHORTNESS OF BREATH. Inhale 2 Puffs as in structed. Inhale 2 Puffs as in structed every 6 hours as needed. aspirin 81 mg delayed release oral tablet (20 sources) Platelet Aggregation Inhibitor, Nonsteroidal Anti-inflammatory Drug Start: 10-17-19 End: 11-16-19 take 1 tablet by mouth once daily aspirin, enteric coated (ECOTRIN LOW STRENGTH) 81 mg EC tablet Take 1 tablet by mouth once daily. 30 tablet 5 10/16/2022 Active Comment on above: Take 1 tablet by cristal th once daily. brompheniramine maleate 0.4 mg/ml / dextromethorphan hydrobromide 2 mg/ml / pseudoephedrine hydrochloride 6 mg/ml oral solution (8 sources) alpha-Adrenergic Agonist, Uncompetitive G-pxwdfm-R-aspartate Receptor Antagonist, Sigma-1 Agonist Start: 07-20-19 End: 10-17-19 take 10 mL by mouth every six hours as needed Brompheniramine-Pse udoeph-DM (BROMFED DM) 2-30-10 mg/5 mL syrup Take 10 mL by mouth four times daily as needed. 200 mL 0 07/20/2022 10/16/2022 Discontinued Comment on above: Take 10 mL by mouth four times daily as needed. Desogestrel / Ethinyl Estradiol (8 sources) Progestin, Estrogen Start: 03-21-20 End: 10-17-19 take 1 tablet by mouth once daily, then take 0.15 tablet by mouth once Desogestrel-Ethinyl Estradiol (APRI) 0.15-0.03 mg per tablet Take 1 tablet by mouth once daily. 84 tablet 3 03/21/2022 10/16/2022 Discontinued Start: 03-21-2022 take 1 tablet by cristal th once daily, then take 0.15 tablet by mouth once Desogestrel-Ethinyl Estradiol (APRI) 0.15-0.03 mg per tablet Take 1 tablet by mouth once daily. 84 tablet 3 03/21/2022 Active Comment on above: Take 1 tablet by cristal th once daily. escitalopram 10 mg oral tablet (1 source) Serotonin Reuptake Inhibitor Start: 06-10-20 End: 07-29-19 24 take 1 tablet by mouth once daily escitalopram oxalate (LEXAPRO) 10 mg tablet Indications: care and examination , depression Take 1 tablet by mouth once daily. 28 tablet 2 06/10/2023 07/29/2023 Discontinued Comment on above: Take 1 tablet by cristal th once daily. famotidine 20 mg oral tablet (4 sources) Histamine-2 Receptor Antagonist Start: 09-13-19 End: 10-17-19 take 1 tablet by mouth twice daily famotidine (PEPCID) 20 mg tablet Take 1 tablet by mouth twice daily. 60 tablet 2 09/12/2022 10/16/2022 Discontinued Comment on above: Take 1 tablet by cristal th twice daily. meloxicam 15 mg oral tablet (8 sources) Nonsteroidal Anti-inflammatory Drug Start: 03-20-20 End: 10-17-19 take 1 tablet by mouth once daily meloxicam (MOBIC) 15 mg tablet Take 1 tablet by mouth once daily. 30 tablet 1 03/20/2021 10/16/2022 Discontinued Comment on above: Take 1 tablet by cristal th once daily. ondansetron 4 mg disintegrating oral tablet (8 sources) Serotonin-3 Receptor Antagonist Start: 07-20-19 End: 10-17-19 take 1 tablet by mouth every eight hours as needed ondansetron orally disintegrating (ZOFRAN ODT) 4 mg disintegrating tablet Take 1 tablet by mouth every 8 hours as needed. 12 tablet 0 07/20/2022 10/16/2022 Discontinued Comment on above: Take 1 tablet by cristal every 8 hours as needed. vitamin 27-1 MG tablet 1 tablet (1 source) Start: 11-03-19 take 1 tablet by mouth once daily 1 tablet, Oral, DAILY, First dose on Tammy 11/02/21 at 1930, Until Discontinued prental multivitamin 27 mg iron- 800 mcg tablet (20 sources) End: 06-03-20 take 1 tablet by mouth once daily prental multivitamin 27 mg iron- 800 mcg tablet Take 1 tablet by mouth once daily. 0 06/03/2023 Discontinued take 1 tablet by mouth once nakul y prental multivitamin 27 mg iron- 800 mcg tablet Take 1 tablet by mouth once daily. 0 Active Comment on above: Take 1 tablet by cristal th once daily. sertraline 100 mg oral tablet (8 sources) Serotonin Reuptake Inhibitor Start: 03-20-2022 End: 10-16-2022 take 1 tablet by mouth once daily sertraline (ZOLOFT) 100 mg tablet Take 100 mg by mouth once daily. 0 03/20/2022 10/16/2022 Discontinued Comment on above: Take 100 mg by mouth once daily. 5 ml sodium chloride 9 mg/ml injection (3 sources) Start: 11-02-2021 10 mL, IntraVENous, EVERY 12 HOURS SCHEDULED (2 times per day), First dose on Sat11/02/21 at 2100, Until Discontinued Start: 11-02-2021 IntraVENous, a t 5-250 mL/hr, PRN, if patient receiving piggyback infusions and maintenance fluids are not ordered OR KVO fluids to protect IV site / prevent frequent line interruptions/ long duration, Starting on Sat11/02/21 at 1901 For piggyback infusion, administer at same rate as piggyback for a total of 25 mL. Enter 25 mL into dose field and piggyback rate into rate field of order. If piggyback is infusing at a rate less than 100 mL/hr, enter 25 mL into dose field and 100 mL/hr into rate field of order. For KVO fluids, enter rate of 20 mL/hr or less into rate field of order. Start: 11-02-2021 take 10 mL intraveno usly once as needed 10 mL, IntraVENous, PRN, Starting on Tammy 11/02/21 at 1901, Until Discontinued, Line Care, After every IV line use Problems Active Problems Problem Classification Problem Date Documented Da te Episodic/Chronic Abdominal pain (1 source) Unspecified abdominal pain; Translations: [Unspecified abdominal pain] Onset: 03-08-2025 Episodic Asthma (20 sources) Asthma; Translations: [Unspecified asthma, uncomplicated] 03-03-2012 Chronic Attention-deficit, conduct, and disruptive behavior disorders (20 sources) Attention deficit hyperactivity disorder; Translations: [Attention-deficit hyperactivity disorder, unspecified type] 03-03-2012 Chronic Contraceptive and procreative management (1 source) Sterilization requested; Translations: [Encounter for sterilization] 04-22-2023 Episodic Headache; including migraine (1 source) Headache; including migraine; Translations: [Headache, unspecified] Onset: 07-20-2024 Menstrual disorders (20 sources) Menorrhagia; Translations: [Excessive and frequent menstruation with regular cycle] Onset: 03-03-2012 Resolved: 12-10-2013 12-10-2013 Chronic Miscellaneous mental health disorders (1 source) depression; Translations: [ depression] 08-05-2023 Episodic Other complications of ; puerperium affecting management of mother (1 source) condition affecting obstetrical care of mother; Translations: [Maternal care for (suspected) abnormality and damage, unspecified, not applicable or unspecified] 01-28-2023 Episodic Other complications of ; puerperium affecting management of mother (1 source) Suspected disorder; Translations: [Maternal care for (suspected) abnormality and damage, unspecified, fetus 1] 03-05-2023 Episodic Other complications of ; puerperium affecting management of mother (1 source) Maternal care for (suspected) abnormality and damage, unspecified, fetus 1; Translations: [Maternal care for (suspected) abnormality and damage, unspecified, fetus 1] Onset: 03-05-2023 Episodic Other complications of (2 sources) Maternal obesity complicating , childbirth and the puerperium, antepartum; Translations: [Obesity complicating , second trimester] Chronic Other complications of (1 source) Obesity; Translations: [Obesity complicating , unspecified trimester] 04-22-2023 Chronic Other complications of (2 sources) Disorder of ; Translations: [Maternal care for other known or suspected poor growth, unspecified trimester, not applicable or unspecified] Onset: 11-02-2021 Episodic Other complications of (5 sources) High risk ; Translations: [Supervision of high risk , unspecified, unspecified trimester] Episodic Other complications of (1 source) RhD negative; Translations: [Other specified related conditions, unspecified trimester] 01-08-2023 Episodic Other complications of (1 source) Headache; Translations: [Other specified related conditions, second trimester] 01-24-2023 Episodic Other congenital anomalies (20 sources) Hypochondroplasia; 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 Other female genital disorders (20 sources) Abnormal uterine bleeding; Translations: [Abnormal uterine and vaginal bleeding, unspecified] Onset: 12-10-2013 12-10-2013 Chronic Other female genital disorders (1 source) Vaginal bleeding; Translations: [Abnormal uterine and vaginal bleeding, unspecified] 05-17-2023 Chronic Other gastrointestinal disorders (1 source) Constipation; Translations: [Constipation, unspecified] 05-09-2023 Episodic Other inflammatory condition of skin (1 source) Intertrigo; Translations: [Erythema intertrigo] 06-03-2023 Episodic Other and delivery including normal (4 sources) Normal ; Translations: [Encounter for supervision of other normal , unspecified trimester] Episodic Other screening for suspected conditions (not mental disorders or infectious disease) (8 sources) Patient encounter status; Translations: [Encounter for screening for nuchal translucency] Episodic Other upper respiratory infections (1 source) Viral upper respiratory tract infection; Translations: [Acute upper respiratory infection, unspecified] Episodic Residual codes; unclassified (2 sources) Gestation period, 6 weeks; Translations: [Less than 8 weeks gestation of ] Episodic Residual codes; unclassified (1 source) Gestation period, 11 weeks; Translations: [11 weeks gestation of ] Episodic Residual codes; unclassified (2 sources) Gestation period, 19 weeks; Translations: [19 weeks gestation of ] Episodic Residual codes; unclassified (1 source) Gestation period, 22 weeks; Translations: [22 weeks gestation of ] 01-01-2023 Episodic Residual codes; unclassified (1 source) Gestation period, 23 weeks; Translations: [23 weeks gestation of ] 01-08-2023 Episodic Residual codes; unclassified (1 source) Gestation period, 25 weeks; Translations: [25 weeks gestation of ] 01-24-2023 Episodic Residual codes; unclassified (1 source) Gestation period, 26 weeks; Translations: [26 weeks gestation of ] 01-28-2023 Episodic Residual codes; unclassified (1 source) Gestation period, 27 weeks; Translations: [27 weeks gestation of ] 02-05-2023 Episodic Residual codes; unclassified (1 source) Gestation period, 32 weeks; Translations: [32 weeks gestation of ] 03-14-2023 Episodic Residual codes; unclassified (2 sources) Gestation period, 37 weeks; Translations: [37 weeks gestation of ] 04-12-2023 Episodic Residual codes; unclassified (2 sources) Gestation period, 38 weeks; Translations: [38 weeks gestation of ] 04-19-2023 Episodic Past or Other Problems Problem Classification Problem Date Documented Da te Episodic/Chronic Conditions associated with dizziness or vertigo (4 sources) Lightheadedness; Translations: [Dizziness and giddiness] Onset: 05-09-2023 05-09-2023 Episodic Diabetes or abnormal glucose tolerance complicating ; childbirth; or the puerperium (20 sources) Abnormal glucose level; Translations: [Abnormal glucose complicating ] Onset: 02-28-2023 02-28-2023 Episodic Genitourinary congenital anomalies (20 sources) History of gynecological disorder; Translations: [Personal history of other specified (corrected) congenital malformations of genitourinary system] Onset: 09-06-2022 Episodic Hemorrhage during ; abruptio placenta; placenta previa (20 sources) Low lying placenta; Translations: [Low lying placenta NOS or without hemorrhage, unspecified trimester] Onset: 12-17-2022 12-17-2022 Episodic Immunizations and screening for infectious disease (3 sources) Needs influenza immunization; Translations: [Encounter for immunization] Onset: 11-25-2023 03-14-2023 Episodic Malposition; malpresentation (11 sources) Breech presentation; Translations: [Maternal care for breech presentation, not applicable or unspecified] Onset: 04-22-2023 04-22-2023 Episodic Open wounds of extremities (1 source) Laceration without foreign body of left thumb without damage to nail, initial encounter; Translations: [Laceration without foreign body of left thumb without damage to nail, initial encounter] Onset: 08-17-2024 Episodic Other complications of (20 sources) 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; Translations: [ care for patient with recurrent loss, unspecified trimester] Onset: 09-06-2022 Episodic Other complications of (20 sources) Finding of pattern of ; Translations: [Supervision of other high risk pregnancies, unspecified trimester] Onset: 09-06-2022 Episodic Other complications of (20 sources) Nausea and vomiting; Translations: [Vomiting of , unspecified] Onset: 09-06-2022 Episodic Other complications of (14 sources) Recurrent miscarriage; Translations: [ care for patient with recurrent loss, unspecified trimester] Onset: 09-06-2022 09-06-2022 Episodic Other complications of (1 source) Supervision of other high risk pregnancies, third trimester; Translations: [Supervision of other high risk pregnancies, third trimester] Onset: 04-12-2023 Episodic Other complications of (1 source) Vomiting of , unspecified; Translations: [Unspecified vomiting of , unspecified as to episode of care or not applicable] Onset: 09-06-2022 09-06-2022 Episodic Other nutritional; endocrine; and metabolic disorders (20 sources) General finding of height; Translations: [Short stature (child)] Onset: 09-06-2022 Episodic Previous (20 sources) ; Translations: [Maternal care for unspecified type scar from previous delivery] Onset: 09-06-2022 Episodic Residual codes; unclassified (20 sources) History of previous intrauterine growth restricted ; Translations: [Personal history of other complications of , childbirth and the puerperium] Onset: 09-06-2022 Episodic Residual codes; unclassified (20 sources) FH: Congenital anomaly; Translations: [Family history of other congenital malformations, deformations and chromosomal abnormalities] Onset: 09-06-2022 Episodic Residual codes; unclassified (1 source) 35 weeks gestation of ; Translations: [35 weeks gestation of ] Onset: 04-12-2023 Episodic Screening and history of mental health and substance abuse codes (20 sources) H/O: depression; Translations: [Personal history of other mental and behavioral disorders] Onset: 09-06-2022 Episodic Results Test Name Value Interpretation Reference Range Facil ity Abdomen/Pelvis without Conto n 03-05-2025 Abdomen/Pelvis without Cont [facility] [address], [place] [id number] Abdomen/Pelvis without Cont MR#: [id number] Acct: [id number] Name: SAUD SIMPSON Rep #: [id number] : 2000 F 24 From: Awais Cai MD PCP: Dr. Harini Wesley MD Status: REG ER Study: Abdomen/Pelvis without Cont Date of Exam: 02/22 08/18 Exam# [id number] Ordering Dr: Jayce Connolly DO PROCEDURE: CT ABDOMEN/PELVIS WITHOUT CONTRAST 03/05/2025 REASON FOR EXAM: RIGHT FLANK PAIN TECHNIQUE: Procedure Code: CTABDPEL Modality: CT Procedure: ABDOMEN/PELVIS WITHOUT CONT Noncontrast technique limits evaluation of the abdominal and pelvic viscera. Coronal and Sagittal reconstruction series were provided. One or more dose reduction techniques were used (e.g., Automated exposure control, adjustment of the mA and/or kV according to patient size, use of iterative reconstruction technique). RADIATION DOSE SUMMARY: CTDlvol: 17.66 mGy DLP: 842.57 mGycm COMPARISON: 12/14/2018 FINDINGS: Lung bases: Clear. Liver: Unremarkable. Gallbladder: Unremarkable. Spleen: Unremarkable. Pancreas: Unremarkable. Adrenals: Unremarkable. Kidneys: Unremarkable. No urolithiasis or hydroureteronephrosis . Bladder: Unremarkable. No bladder calculus or wall thickening. Reproductive Organs: Unremarkable appearance of the uterus and adnexae. Bowel: No evidence of obstruction or active inflammatory process. Normal appendix. Lymph nodes: No suspicious lymph node enlargement. Increased number of nonspecific shotty subcentimeter mesenteric lymph nodes in the midabdomen, likely reactive. Vasculature: Normal caliber abdominal aorta and IVC. Peritoneum / Retroperitoneum: No free fluid or air. Bones: Unremarkable. CT/Abdomen/Pelvis without Cont IMPRESSION: No acute or active inflammatory intra-abdominal pathology. No urinary tract calculi or hydroureteronephrosis . Reading Location: [facility] CC: Dr. Harini Wesley MD; Dr. 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 [place], [place], [id number] Absolute Neut 4.8 X10 3/uL Normal 2.0-7.7 [facility] Comment on above: Performed By: #### L 500.4050, L100.0100, L700.6800 #### [facility] Laboratory [address] [place], [address] Basophils/100 WBC (Bld) 0.8 % Normal 0-1 [facility] Comment on above: Performed By: #### L 500.4050, L100.0100, L700.6800 #### [facility] Laboratory [address] [place], [address] Eosinophils/100 WBC (Bld) 2.5 % Normal 0-5 [facility] Comment on above: Performed By: #### L 500.4050, L100.0100, L700.6800 #### [facility] Laboratory [address] [place], [address] Erythrocyte distribution width (RBC) [Ratio] 13.5 % Normal 11.6-14.6 [facility] Comment on above: Performed By: #### L 500.4050, L100.0100, L700.6800 #### [facility] Laboratory [address] [place], [address] Hematocrit (Bld) [Volume fraction] 39.1 % Normal 37-47 [facility] Comment on above: Performed By: #### L 500.4050, L100.0100, L700.6800 #### [facility] Laboratory [address] [place], [address] Hemoglobin (Bld) [Mass/Vol] 12.5 g/dL Normal 12.0-15.0 [facility] Comment on above: Performed By: #### L 500.4050, L100.0100, L700.6800 #### [facility] Laboratory [address] [place], [address] IG% 0.200 Normal 0.0-0.9 [facility] Comment on above: Result Comment: IG% - Immature Granulocytes (promyelocytes, myelocytes and metamyelocytes) > 1% indicates that a LEFT SHIFT is Present. Performed By: #### L 500.4050, L100.0100, L700.6800 #### [facility] Laboratory [address] [place], [address] Lymphocytes/100 WBC (Bld) 33.4 % Normal 19-41 [facility] Comment on above: Performed By: #### L 500.4050, L100.0100, L700.6800 #### [facility] Laboratory [address] [place], [address] MCH (RBC) [Entitic mass] 27.2 pg Normal 27.0-32.0 [facility] Comment on above: Performed By: #### L 500.4050, L100.0100, L700.6800 #### [facility] Laboratory [address] [place], [address] MCHC (RBC) [Mass/Vol] 32.0 g/dL Normal 32-36 [facility] Comment on above: Performed By: #### L 500.4050, L100.0100, L700.6800 #### [facility] Laboratory [address] [place], [address] MCV (RBC) [Entitic vol] 85.0 fL Normal 81-99 [facility] Comment on above: Performed By: #### L 500.4050, L100.0100, L700.6800 #### [facility] Laboratory [address] [place], [address] Monocytes/100 WBC (Bld) 7.9 % Normal 0-10 [facility] Comment on above: Performed By: #### L 500.4050, L100.0100, L700.6800 #### [facility] Laboratory [address] [place], [address] Neutrophils/100 WBC (Bld) 55.2 % Normal 47-70 [facility] Comment on above: Performed By: #### L 500.4050, L100.0100, L700.6800 #### [facility] Laboratory [address] [place], [address] Nucleated RBC (Bld) [#/Vol] 0 10*3/uL Normal 0-5 [facility] Comment on above: Performed By: #### L 500.4050, L100.0100, L700.6800 #### [facility] Laboratory [address] [place], [address] Platelet mean volume (Bld) [Entitic vol] 8.9 fL Normal 6.2-12.0 [facility] Comment on above: Performed By: #### L 500.4050, L100.0100, L700.6800 #### [facility] Laboratory [address] [place], [address] Platelets (Bld) [#/Vol] 300 10*3/uL Normal 150-450 [facility] Comment on above: Performed By: #### L 500.4050, L100.0100, L700.6800 #### [facility] Laboratory [address] [place], [address] RBC (Bld) [#/Vol] 4.60 10*6/uL Normal 4.2-5.4 [facility] Comment on above: Performed By: #### L 500.4050, L100.0100, L700.6800 #### [facility] Laboratory [address] [place], [address] RDW SD 41.7 fl Normal 35.1-43.9 [facility] Comment on above: Performed By: #### L 500.4050, L100.0100, L700.6800 #### [facility] Laboratory [address] [place], [address] WBC (Bld) [#/Vol] 8.7 10*3/uL Normal 4.4-11.0 [facility] Comment on above: Performed By: #### L 500.4050, L100.0100, L700.6800 #### [facility] Laboratory [address] [place], [address] Comprehensive Metabolic Prof ilon 03-05-2025 Albumin [Mass/Vol] 4.3 g/dL Normal 3.5-5.0 [facility] Comment on above: Performed By: #### L 500.4050, L100.0100, L700.6800 #### [facility] Laboratory [address] [place], [address] Albumin/Globulin [Mass ratio] 1.3 {ratio} Normal 0.9-2.4 [facility] Comment on above: Performed By: #### L 500.4050, L100.0100, L700.6800 #### [facility] Laboratory [address] [place], [address] ALK PHOS 53 U/L Normal 35-104 [facility] Comment on above: Performed By: #### L 500.4050, L100.0100, L700.6800 #### [facility] Laboratory [address] [place], [address] ALT [Catalytic activity/Vol] 11 U/L Normal <=34 [facility] Comment on above: Performed By: #### L 500.4050, L100.0100, L700.6800 #### [facility] Laboratory [address] [place], [address] AST [Catalytic activity/Vol] 18 U/L Normal <=31 [facility] Comment on above: Performed By: #### L 500.4050, L100.0100, L700.6800 #### [facility] Laboratory [address] [place], [address] Bilirubin [Mass/Vol] 0.24 mg/dL Normal 0.00-1.30 [facility] Comment on above: Performed By: #### L 500.4050, L100.0100, L700.6800 #### [facility] Laboratory [address] [place], [address] BUN/CRE 19.1 RATIO Normal 10-20 [facility] Comment on above: Performed By: #### L 500.4050, L100.0100, L700.6800 #### [facility] Laboratory [address] [place], [address] Calcium [Mass/Vol] 9.4 mg/dL Normal 7.6-11.0 [facility] Comment on above: Performed By: #### L 500.4050, L100.0100, L700.6800 #### [facility] Laboratory [address] [place], [address] Chloride [Moles/Vol] 105 mmol/L Normal 98-108 [facility] Comment on above: Performed By: #### L 500.4050, L100.0100, L700.6800 #### [facility] Laboratory [address] [place], [address] CO2 [Moles/Vol] 25.0 mmol/L Normal 21.0-32.0 [facility] Comment on above: Performed By: #### L 500.4050, L100.0100, L700.6800 #### [facility] Laboratory [address] [place], [address] Creatinine [Mass/Vol] 0.74 mg/dL Normal 0.70-1.20 [facility] Comment on above: Performed By: #### L 500.4050, L100.0100, L700.6800 #### [facility] Laboratory [address] [place], [address] ECRCL 110.60 ml/min Normal 50-250 [facility] Comment on above: Performed By: #### L 500.4050, L100.0100, L700.6800 #### [facility] Laboratory [address] [place], [address] GAP 9 Normal 5-15 [facility] Comment on above: Performed By: #### L 500.4050, L100.0100, L700.6800 #### [facility] Laboratory [address] [place], [address] GFR/1.73 sq M.predicted among non-blacks MDRD (S/P/Bld) [Vol rate/Area] 115 mL/min/{1.73_m2} Normal >60 [facility] Comment on above: Result Comment: mL/m in/1.73m2 CKD-EPI Creatinine Equation (2020) Performed By: #### L 500.4050, L100.0100, L700.6800 #### [facility] Laboratory [address] [place], [address] Globulin (S) [Mass/Vol] 3.3 g/dL Normal 2.2-4.2 [facility] Comment on above: Performed By: #### L 500.4050, L100.0100, L700.6800 #### [facility] Laboratory [address] [place], [address] Glucose [Mass/Vol] 97 mg/dL Normal 70-99 [facility] Comment on above: Performed By: #### L 500.4050, L100.0100, L700.6800 #### [facility] Laboratory [address] [place], [address] Potassium [Moles/Vol] 3.9 mmol/L Normal 3.3-5.1 [facility] Comment on above: Performed By: #### L 500.4050, L100.0100, L700.6800 #### [facility] Laboratory [address] [place], [address] Sodium [Moles/Vol] 139 mmol/L Normal 133-145 [facility] Comment on above: Performed By: #### L 500.4050, L100.0100, L700.6800 #### [facility] Laboratory [address] [place], [address] T PROT 7.6 g/dL Normal 5.9-8.4 [facility] Comment on above: Performed By: #### L 500.4050, L100.0100, L700.6800 #### [facility] Laboratory [address] [place], [address] Urea nitrogen [Mass/Vol] 14 mg/dL Normal 4-19 [facility] Comment on above: Performed By: #### L 500.4050, L100.0100, L700.6800 #### [facility] Laboratory [address] [place], [address] Emergency Department Summary on 03-05-2025 Emergency Department Summary [facility] Medical Records Department [address] [place] [address] Emergency Department Summary 03/05/25 MR#: [id number] Acct: [id number] Name: SAUD SIMPSON Rep #: [id number] : 2000 24 From: Jayce Connolly DO PCP: Dr. Harini Wesley MD Status:DEP ER Location: ED HPI History of Present Illness Chief Complaint: Flank Pain Informant: patient Onset/Context/Timing Onset: Days (2) Context: Sudden Onset Timing: Intermittent Quality: Stabbing Location: Right flank Worsened by: Nothing Relieved by: Nothing Narrative Narrative: Patient presents with right flank pain that has been intermittent over the last 2 days. Patient states it comes on rather suddenly. Patient states it is stabbing. Patient states it is over the right flank area. Patient denies any radiation of the pain. Patient states nothing makes it worse and nothing makes it better. Patient admits to some nausea but denies any vomiting. Patient denies any dysuria, frequency, or hematuria. Patient denies any fevers or chills. PFSH PFSH Medical History depression Depression Family history of hearing loss at age younger than 7 years Chlamydia infection affecting Infertility Anxiety Gastric reflux Difficulty balancing Asthma Home Medications ???Medication ???Instructions ???Recorded ???Last Taken ???Type albuterol sulfate 90 mcg/actuation 2 puff inhalation Q6H PRN asthma 04/26/23 Unknown History aerosol inhaler (Ventolin HFA) acetaminophen 500 mg tablet 1,000 mg (2 x 500 mg) PO Q6H #0 Unknown Rx tabs ibuprofen 600 mg tablet 600 mg PO Q6H #0 tabs 04/28/23 Unk nown Rx sennosides 8.6 mg-docusate sodium 1 - 2 tab PO DAILY #0 tabs 06/12/23 Rx 50 mg tablet (Stool Softener-Stimulant Laxative) escitalopram oxalate 10 mg tablet 10 mg PO DAILY 06/12/23 06/12/23 History nystatin 100,000 unit/gram topical 1 applic topical TID 06/12/23 History powder (Nystop) naproxen 500 mg tablet (Naprosyn) 500 mg PO BID PRN pain #20 tabs 0 03/05/25 Unknown Rx Allergy/AdvReac Type Severity Reaction Status Date / Time amoxicillin (Amoxicillin) Allergy Hives Verified 03/05/25 15:37 codeine Allergy Nausea Verified 03/05/25 15:37 Penicillins Allergy Hives Verified 03/05/25 15:37 Milk Containing Products AdvReac Upset Verified 03/05/25 15:37 (Dairy) Stomach Family History Grandfather Heart disease Grandmother Heart disease Mother Breast cancer Mitral valve prolapse Surgical History Delivery by section History of knee surgery Social History Smoking Status: Never smoker ROS ROS ED Constitutional Constitutional ED: Denies chills or fever(s) Eyes Eyes: Denies blurry vision or change in vision ENT ENT ED: Denies rhinorrhea or sore throat Cardiovascular Cardiovascular: Denies chest pain or palpitations Respiratory/Chest Respiratory/Chest: Denies cough or dyspnea Gastrointestinal Gastrointestinal: Reports nausea; Denies vomiting Genitourinary Genitourinary ED: Denies dysuria or hematuria Musculoskeletal Musculoskeletal: Reports back pain; Denies neck pain Integumentary Denies abscess or rash Neurologic Neurologic: Denies headache(s) or weakness Allergic/Immunologic Allergic/Immunologic ED: Denies mouth swelling or urticaria EXAM Physical Exam Const Vital Signs: 03/05/25 15:37 03/05/25 17:34 03/05/25 18:59 Temperature 97.8 F Temperature Source Oral Pulse Rate 90 74 54 L Respiratory Rate 18 Blood Pressure 118/81 H 103/64 107/81 H Blood Pressure Mean 93 77 89 Pulse Ox 99 98 100 Oxygen Delivery Method Room Air Room Air 03/05/25 20:05 Temperature 97.8 F Temperature Source Pulse Rate 54 L Respiratory Rate 18 Blood Pressure 107/69 Blood Pressure Mean 81 Pulse Ox 100 Oxygen Delivery Method Positive well nourished and well developed General Appearance ED: well developed and NAD HEENT Reports moist mucous membranes Neck supple and no JVD Resp normal respiratory effort and clear to auscultation bilaterally Cardio regular rate and regular rhythm GI non-tender and non-distended Palpation: soft Back/Spine General Back: CVA tenderness right Neuro oriented x3, CN's II-XII intact bilaterally and no sensory deficits noted Sensorium / Orientation: alert Motor Exam: strength 5/5 throughout Psych mental status grossly normal MDM MDM MDM Narrative Medical decision making narrative: Differential diagnosis includes ureteral calculus, pyelonephritis, dehydration, electrolyte (more content not included)... Normal [facility] ,Serum,hCG Quali.on 03-05-2025 HCG, SERUM QUAL Negative Normal [facility] Comment on above: Performed By: #### L 500.4050, L100.0100, L700.6800 #### [facility] Laboratory [address] [place], [place], [id number] Urinalysis, Completeon 03-05 EPI,SQUAMOUS 0-5 SEEN Normal 5-10 [facility] Comment on above: Order Comment: COLLE CTOR TO SPECIFY Performed By: #### L 400.0001 #### [facility] Laboratory [address] [place], [address] RBC 0-5 SEEN Normal 0-5 [facility] Comment on above: Order Comment: COLLE CTOR TO SPECIFY Performed By: #### L 400.0001 #### [facility] Laboratory [address] [place], [address] WBC 0-5 SEEN Normal 0-5 [facility] Comment on above: Order Comment: COLLE CTOR TO SPECIFY Performed By: #### L 400.0001 #### [facility] Laboratory [address] [place], [address] BACTERIA 0 SEEN Normal None Seen [facility] Comment on above: Order Comment: COLLE CTOR TO SPECIFY Performed By: #### L 400.0001 #### [facility] Laboratory [address] [place], [address] Mucus Ql (Urine sed) 0 SEEN Normal [facility] Comment on above: Order Comment: COLLE CTOR TO SPECIFY Performed By: #### L 400.0001 #### [facility] Laboratory [address] [place], [address] Emergency Department Summary on 07-27-2024 Emergency Department Summary [facility] Medical Records Department [address] [place] [address] Emergency Department Summary 07/27/24 MR#: [id number] Acct: [id number] Name: SAUD SIMPSON Rep #: [id number] : 2000 23 From: Jose D Blanchard PCP: Dr. Harini Wesley MD Status:DEP ER Location: ED HPI History of Present Illness Chief Complaint: Laceration Informant: patient Narrative Narrative: Fhkrz-[id number]-[id number] presents work-related injury occurring 2 days ago. Using tomato slicer which she cut the tip of her thumb. She has been having to work and would reopen. 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 Her tetanus is up-to-date. No anticoagulants. PFSH PFS Medical History depression Depression Family history of hearing loss at age younger than 7 years Chlamydia infection affecting Infertility Anxiety Gastric reflux Difficulty balancing Asthma Home Medications ???Medication ???Instructions ???Recorded ???Last Taken ???Type albuterol sulfate 90 mcg/actuation 2 puff inhalation Q6H PRN asthma 04/26/23 Unknown History aerosol inhaler (Ventolin HFA) acetaminophen 500 mg tablet 1,000 mg (2 x 500 mg) PO Q6H #0 Unknown Rx tabs ibuprofen 600 mg tablet 600 mg PO Q6H #0 tabs 04/28/23 Unk nown Rx sennosides 8.6 mg-docusate sodium 1 - 2 tab PO DAILY #0 tabs 06/12/23 Rx 50 mg tablet (Stool Softener-Stimulant Laxative) escitalopram oxalate 10 mg tablet 10 mg PO DAILY 06/12/23 06/12/23 History nystatin 100,000 unit/gram topical 1 applic topical TID 06/12/23 History powder (Nystop) Allergy/AdvReac Type Severity Reaction Status Date / Time amoxicillin (Amoxicillin) Allergy Hives Verified 07/27/24 15:16 codeine Allergy Nausea Verified 07/27/24 15:16 Penicillins Allergy Hives Verified 07/27/24 15:16 Family History Grandfather Heart disease Grandmother Heart disease Mother Breast cancer Mitral valve prolapse Surgical History Delivery by section History of knee surgery Social History Smoking Status: Never smoker ROS ROS ED Constitutional Constitutional ED: Denies fever(s) Cardiovascular Cardiovascular: Denies none Respiratory/Chest Respiratory/Chest: Denies cough Musculoskeletal Musculoskeletal: Denies none Integumentary Reports wounds; Denies rash Neurologic Neurologic: Denies none EXAM Physical Exam Const Vital Signs: 07/27/24 15:17 Temperature 97.2 F L Temperature Source Temporal Pulse Rate 85 Respiratory Rate 14 Blood Pressure 112/79 Blood Pressure Mean 90 Pulse Ox 100 Oxygen Delivery Method Room Air Positive well nourished and well developed General Appearance ED: well developed and NAD HEENT Reports moist mucous membranes normocephalic and atraumatic Eyes General Eye ED: Yes normal appearance of both eyes Neck full ROM Chest Wall Chest: Negative for tenderness Resp normal respiratory effort and normal air movement Effort and Inspection: symmetric chest movement; Negative for respiratory distress Cardio regular rate, regular rhythm and no murmurs Peripheral Pulses: pulses 2+ throughout GI normal to inspection, nondistended, normoactive bowel sounds and non-tender Palpation: Negative for guarding or rebound tenderness present Extremity Extremity Narrative: Left hand thumb: Laceration less than 1 cm with no active bleeding. No drainage no streaking. General Extremety ED: Negative for edema or tenderness General Extremity: Negative for edema Neuro oriented x3 and no sensory deficits noted Sensorium / Orientation: awake and alert Skin no rashes or lesions noted and no wounds MDM MDM MDM Narrative Medical decision making narrative: Interventions / MDM: Differential diagnosis: Left thumb laceration, work-related injury Diagnosis considered but do not suspect: N/A My EKG interpretation: N/A Imaging independently reviewed and interpreted by myself: N/A External documents reviewed: N/A Test considered but not ordered:N/A ED course: Laceration less than 1 cm no active bleeding. Recurrent bleeding due to her work. Discussed due to injury occurring 48 hours ago, no closure as infection risk increases. Dressing placed, cage splint provided. Appropriate work restrictions with no handling of food with injured hand. She is given follow-up with occupational health. Re-evaluation: stable Disposition discussed with patient/family/signif icant other: Patient Case discussed with consulting clinician: N/A This note was generated (more content not included)... Normal [facility] Brain/Head without Contrasto n 06-24-2024 Brain/Head without Contrast [facility] Imaging Services [address] [place] [address] Brain/Head without Contrast MR#: [id number] Acct: [id number] Name: SAUD SIMPSON Rep #: [id number] : 2000 F 23 From: Lewis Garcia MD PCP: Care Physician,No Primary Status: REG ER Study: Brain/Head without Contrast Date of Exam: 07/18 Exam# [id number] Ordering Dr: Luís Mason DO [id number] EXAM: CT HEAD WITHOUT INTRAVENOUS CONTRAST CLINICAL INDICATION: headache, blurry vision TECHNIQUE: Multiple axial images were obtained of the head without intravenous contrast. This CT exam was performed using one or more of the following dose reduction techniques: automated exposure control, adjustment of the mA and/or kV according to patient size, and/or use of iterative reconstruction technique. COMPARISON: CT Head dated 05/24/2022 FINDINGS: BRAIN AND EXTRA-AXIAL SPACES: Normal. Normal brain attenuation. No intra- or extra-axial hemorrhage. No acute infarct. No intracranial mass or mass effect. There is preservation of the mccray/white matter interface. Posterior fossa structures are unremarkable. Ventricles are appropriate for age. No hydrocephalus. Basal cisterns are patent. BONES/JOINTS: Normal calvarium. SINUSES: Mild mucosal thickening within the maxillary sinuses. 8mm mucous retention cyst within the right sphenoid sinus. MASTOID AIR CELLS: Normal. Clear. CT/Brain/Head without Contrast IMPRESSION: No acute intracranial abnormality. Electronically Signed: Lewis Garcia MD at 8:43 EST , CC: Luís Mason DO; No Primary Care Physician Tug Boat Engineer: Signed Normal [facility] Emergency Department Summary on 06-24-2024 Emergency Department Summary [facility] Medical Records Department [address] [place] [address] Emergency Department Summary 06/24/24 MR#: [id number] Acct: [id number] Name: SAUD SIMPSON Rep #: [id number] : 2000 23 From: Luís Mason DO PCP: Care Physician,No Primary Status:REG ER Location: ED ADDENDUM by Dr. Jayce Connolly DO on 06/24/24 at 0855 Care of the patient was turned over to ks pending CT scan. CT scan of the brain was reviewed. There is no evidence of intracranial bleeding or mass. There is no acute abnormality noted. This was interpreted by the radiologist was also independently reviewed by myself. Patient was advised of her findings patient was instructed to rest in a dark quiet room. Patient was instructed to follow-up with her primary care physician in 5 to 7 days. Patient was instructed to return if worse in any way. Patient understood and was agreeable plan. All questions were answered. 06/24/24 2030 Cosigner Signature (if applicable): cc: No Primary Care Physician * Signed HPI History of Present Illness Chief Complaint: Headache Informant: patient and EMS Narrative Narrative: Patient is a 23-year-old female with past medical history of anxiety depression GERD and POTS. She states that last night she had a mild headache along the left side of her head and denies any recent trauma or alcohol ingestion. She states this morning it felt worse in severity and she noticed there was blurry/tunnel vision and light sensitivity. She states she took [id number]-[id number] medication without symptom improvement and secondary to this comes in for evaluation [facility] Medical History depression Depression Family history of hearing loss at age younger than 7 years Chlamydia infection affecting Infertility Anxiety Gastric reflux Difficulty balancing Asthma Home Medications ???Medication ???Instructions ???Recorded ???Last Taken ???Type albuterol sulfate 90 mcg/actuation 2 puff inhalation Q6H PRN asthma 04/26/23 Unknown History aerosol inhaler (Ventolin HFA) acetaminophen 500 mg tablet 1,000 mg (2 x 500 mg) PO Q6H #0 04/28/23 Unknown Rx tabs ibuprofen 600 mg tablet 600 mg PO Q6H #0 tabs 04/28/23 Unknown Rx sennosides 8.6 mg-docusate sodium 1 - 2 tab PO DAILY #0 tabs 04/28/23 06/12/23 Rx 50 mg tablet (Stool Softener-Stimulant Laxative) escitalopram oxalate 10 mg tablet 10 mg PO DAILY 06/12/23 06/12/23 History nystatin 100,000 unit/gram topical 1 applic topical TID 06/12/23 06/12/23 History powder (Nystop) Allergy/AdvReac Type Severity Reaction Status Date / Time amoxicillin (Amoxicillin) Allergy Hives Verified 06/24/24 06:24 codeine Allergy Nausea Verified 06/24/24 06:24 Penicillins Allergy Hives Verified 06/24/24 06:24 Family History Grandfather Heart disease Grandmother Heart disease Mother Breast cancer Mitral valve prolapse Surgical History Delivery by section History of knee surgery Social History Smoking Status: Never smoker ROS ROS ED Constitutional Constitutional ED: Denies chills or fever(s) Eyes Eyes: Reports other Details: Positive photophobia ENT ENT ED: Denies rhinorrhea or sore throat Cardiovascular Cardiovascular: Denies chest pain Respiratory/Chest Respiratory/Chest: Denies cough or dyspnea Gastrointestinal Gastrointestinal: Denies abdominal pain, diarrhea, nausea or vomiting Genitourinary Genitourinary ED: Denies dysuria Musculoskeletal Musculoskeletal: Denies neck pain Integumentary Denies rash Neurologic Neurologic: Reports headache(s); Denies paresthesias or weakness Hematologic/Lymphatic Hematologic/Lymphatic : Denies easy bleeding or easy bruising EXAM Physical Exam Const Vital Signs: 06/24/24 06:24 Temperature 98.6 F Temperature Source Oral Pulse Rate 51 L Respiratory Rate 16 Blood Pressure 115/86 H Blood Pressure Mean 95 Pulse Ox 100 Oxygen Delivery Method Room Air Positive well nourished, well developed and obese General Appearance ED: well developed; Negative for pallor Nutritional Appearance: obese HEENT HEENT Narrative: Normocephalic atraumatic No overlying soft tissue changes to suggest trauma or infection No shingles rash noted There is reproducible pain along the left temporal/parietal portion of the scalp with palpation Eyes PERRL and EOMs intact bilaterally General Eye ED: Negative for scleral icterus Neck supple Neck Narrative: No nuchal rigidity or meningeal signs Resp normal respiratory effort and clear to auscul (more content not included)... [facility] (OBGYWM) SAUD SIMPSON ([id number]) 89 F Date Time Provider Department 03/26/24 LISE CONCEPCION During your visit today, we recorded the following information about you: Mily Forrester RN 03/26/2024 3:01 PM Signed Patient calling because she is 2 days late for menses. She said this is very unusual for her.. She typically always starts on the 1st of the month. She took urine test yesterday and it was negative. Had bilateral salpingectomy 04/2023 with last . She stopped OCP too about 5 months ago. She is having pelvic menstrual like cramping. States it is dull and rates 2/10 when it does occur. No one sided pelvic pain at all. Advised provider may recommend repeating UPT next week if still no menses yet at that point. Please advise. SONIA Pedraza Sara, MD 03/26/2024 5:23 PM Signed Agree with repeat preg test next week if period does not start. To track menstrual cycles and call if menstrual cycles are not every 24-38 days Diana Anderson RN 03/27/2024 9:08 AM Signed Patient called in to the office. Notified. Diana Anderson RN Allergies As of Date: 03/26/2024 Noted Allergy Reaction AMOXICILLIN 12/16/2018 4 - Hives CODEINE 03/03/2012 8 - GI Upset Date Reviewed: 11/25/2023 Reviewed by: Cathleen Mora MA - Fully Assessed Reason for Visit: Missed Menses [Other] Prescriptions as of 03/27/2024 - FLUoxetine (PROZAC) 10 mg capsule Take 1 capsule by mouth once daily. - Norethin Diogenes-Eth Estrad-FE (07/13, ,) 1 mg-20 mcg (21)/75 mg (7) per tablet Take 1 tablet by mouth once daily. - docusate sodium (COLACE) 100 mg capsule Take 1 capsule by mouth two times a day. - ferrous sulfate (IRON ORAL) Take 600 mg by mouth. every other day - ibuprofen (MOTRIN) 600 mg tablet Take 1 tablet by mouth every 6 hours as needed for pain. FOR PAIN. - polyethylene glycol 3350 17 gram/dose powder Take 17 g by mouth two times a day as needed for constipation. - magnesium oxide (MAG-OX) 400 mg (241.3 mg magnesium) tablet Take 1 tablet by mouth once daily. - BECLOMETHASONE DIPROPIONATE (QVAR INHALATION) Inhale as instructed. - albuterol HFA (VENTOLIN HFA) 90 mcg/actuation inhaler Inhale 2 Puffs as instructed. - albuterol 90 mcg/actuation Aero Inhale 2 Puffs as instructed three times daily as needed. FOR WHEEZING AND SHORTNESS OF BREATH. 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 trachomatis+N. gonorrhoea e DNA JAVIER+probe Ql (Unsp spec)on 11-25-2023 C. trachomatis rRNA JAVIER+probe Ql (Unsp spec) Negative Negative for Chlamydia trachomatis by amplificaton [facility] Interpretation and review of laboratory results Normal [facility] N. gonorrhoeae rRNA JAVIER+probe Ql (Unsp spec) Negative Negative for Neisseria gonorrhoeae by amplification [facility] C. trachomatis rRNA JAVIER+probe Ql (Unsp spec) Negative Normal Negative for Chlamydia trachomatis by amplificaton [facility] Comment on above: Order Comment: Speci men Type: SWABOrdering Facility: [facility] Address: [address] [place] [address] Performed By: #### 3 6902-5, TRVAMP ####[facility] LABCLIA [id number] [place] [address] [place] N. gonorrhoeae rRNA JAVIER+probe Ql (Unsp spec) Negative Normal Negative for Neisseria gonorrhoeae by amplification [facility] Comment on above: Order Comment: Speci men Type: SWABOrdering Facility: [facility] Address: [address] [place] [address] Performed By: #### 3 6902-5, TRVAMP ####[facility] LABCLIA [id number] [place] [address] [place] CNOVon 11-25-2023 CNOV Office Visit (OBGYWM ) SAUD SIMPSON ([id number]) 89 F Date Time Provider Department 11/25/23 10:30 AM WOLFGANG NGUYEN OBERICKSONWElías During your visit today, we recorded the following information about you: Blood pressure Weight Last Period 110/60 80.7 kg 11/16/23 Wolfgang Nguyen MD 11/25/2023 10:55 AM Signed Director Market Intelligence offered: Patient accepts, visit chaperoned by Saud Simpson is a 22 year old female who presents for problem visit for potential STI exposure.. HPI: Potential STI exposure from allege to have had unprotected sex with a bisexual individual rumored to have HIV. OB History T2 L2 SAB4 IAB0 Ectopic0 Multiple0 Live Births2 Medical Language Specialist History LMP: 07/09/2023 (Exact Date), Unknown Age at Menarche: Age at First : Age at Menopause: Medical Language Specialist History Comments: Sexual Activity: Yes; Male Contraception: Pill PAST MEDICAL HISTORY Diagnosis Date ADD (attention deficit disorder) ADHD (attention deficit hyperactivity disorder) Anemia Asthma Chlamydia Hypochondroplasia depression PAST SURGICAL HISTORY Procedure Laterality Date DELIVERY ONLY 12/15/2021 DELIVERY ONLY 04/26/2023 LTCS PAST SURGICAL HISTORY OF Right 11/26/2018 patellar stabilization and right knee meniscal repair FAMILY HISTORY Problem Relation Age of Onset Seizures Mother Heart Mother Seizures Father Kidney failure Father Alcohol abuse Father No Known Problems Sister No Known Problems Sister No Known Problems Sister other (deaf) Sister No Known Problems Brother Heart Brother Heart Maternal Grandmother Hypertension Maternal Grandmother Lipids Maternal Grandmother Stroke Maternal Grandmother Heart Maternal Grandfather Hypertension Maternal Grandfather Lipids Maternal Grandfather Heart Paternal Grandmother Hypertension Paternal Grandmother Lipids Paternal Grandmother Heart Paternal Grandfather Hypertension Paternal Grandfather Lipids Paternal Grandfather No Known Problems Daughter Social History Tobacco Use Smoking status: Never Smokeless tobacco: Never Vaping Use Vaping Use: Never used Substance Use Topics Alcohol use: Not Currently Comment: rare, once a month Drug use: No Current Outpatient Medications Medication Sig FLUoxetine (PROZAC) 10 mg capsule Take 1 capsule by mouth once daily. Norethin Diogenes-Eth Estrad-FE (,) 1 mg-20 mcg (21)/75 mg (7) per tablet Take 1 tablet by mouth once daily. docusate sodium (COLACE) 100 mg capsule Take 1 capsule by mouth two times a day. (Patient not taking: Reported on 07/29/2023) ferrous sulfate (IRON ORAL) Take 600 mg by mouth. every other day (Patient not taking: Reported on 07/29/2023) ibuprofen (MOTRIN) 600 mg tablet Take 1 tablet by mouth every 6 hours as needed for pain. FOR PAIN. (Patient not taking: Reported on 07/29/2023) polyethylene glycol 3350 17 gram/dose powder Take 17 g by mouth two times a day as needed for constipation. magnesium oxide (MAG-OX) 400 mg (241.3 mg magnesium) tablet Take 1 tablet by mouth once daily. BECLOMETHASONE DIPROPIONATE (QVAR INHALATION) Inhale as instructed. albuterol HFA (VENTOLIN HFA) 90 mcg/actuation inhaler Inhale 2 Puffs as instructed. albuterol 90 mcg/actuation Aero Inhale 2 Puffs as instructed three times daily as needed. FOR WHEEZING AND SHORTNESS OF BREATH. No current facility-administered medications for this visit. Allergies As of Date: 11/25/2023 Allergen Noted Reaction AMOXICILLIN 12/16/2018 Hives CODEINE 03/03/2012 GI Upset Fully Assessed 07/29/2023 REVIEW OF SYSTEMS Abdomen: No bloating, early satiety, indigestion, or increased flatulence. No abdominal pain, nausea, vomiting, diarrhea, or constipation. Bladder: No dysuria, gross hematuria, urinary frequency, urinary urgency, or incontinence. Breast: No breast lumps, nipple d/c, overlying skin changes, redness or skin retraction. Expanded ROS: N/A Allergies and current medication updated:Yes EXAM: LMP 07/09/2023 GENERAL: pleasant, female in no apparent distress PELVIC: external genitalia normal, normal Bartholin's glands, urethra, Reasnor's glands, no vulvar lesions, no cervical lesions, good vaginal support, physiologic discharge present, normal appearing perineal body and perianal region BIMANUAL: uterus normal size, shape and consistency, no adnexal masses, and non-tender ASSESSMENT AND PLAN: Potential STD exposure, screening requested / ordered FTFT with patient and prep > 30 min Wolfgang Nguyen MD Referring Provider: SELF [200] Allergies As of Date: 11/25/2023 Noted Allergy Reaction AMOXICILLIN 12/16/2018 4 - Hives CODEINE 03/03/2012 8 - GI Upset Date Reviewed: 11/25/2023 Reviewed by: Cathleen Mora MA - Fully Assessed Reason for Visit: STD [102] Primary Visit Diagnosis:Screen for STD (se (more content not included)... Normal [facility] HBV surface Ag Ser Qlon 06- HBV surface Ag Ql (S) Negative Normal Negative [facility] Comment on above: Order Comment: Speci men Type: BLOOD SPECIMENOrdering Facility: [facility] Address: [address] [place] [address] Performed By: #### 3 1201-7, 75531-4, 5195-3 ####[facility] LABCLIA [id number] [place] [address] [place] HCV Ab Ser Qlon 11-25-2023 HCV Ab Ql (S) Negative Normal Negative [facility] Comment on above: Order Comment: Speci men Type: BLOOD SPECIMENOrdering Facility: [facility] Address: [address] [place] [address] Result Comment: The result suggests no evidence of active infection with Hepatitis C virus. Should recent infection be suspected, repeat testing may be considered 4-6 weeks after this draw. Performed By: #### 1 6128-1 ####[facility] LABCLIA [id number] [place] [address] [place] HIV 1+2 Ab IA Qlon HIV 1 and 2 Ab IA.rapid Nom (S/P/Bld) Normal [facility] Comment on above: Order Comment: Speci men Type: BLOOD SPECIMENOrdering Facility: [facility] Address: [address] [place] [address] Result Comment: Test not indicated. Performed By: #### 3 1201-7, 62332-3, 5-3 ####[facility] LABCLIA [id number] [place] [address] [place] HIV 1+2 Ab+HIV1 p24 Ag IA Ql Non-Reactive Normal Nonreactive [facility] Comment on above: Order Comment: Speci men Type: BLOOD SPECIMENOrdering Facility: [facility] Address: [address] [place] [address] Performed By: #### 3 1201-7, 98284-0, 5195-3 ####[facility] LABCLIA [id number] [place] [address] [place] HIV immunoassay testing algorithm interpretation (S/P/Bld) [Interp] Normal [facility] Comment on above: Order Comment: Speci men Type: BLOOD SPECIMENOrdering Facility: [facility] Address: [address] [place] [address] Result Comment: No e vidence of HIV-1 or HIV-2 infection. Should recent infection be suspected, repeat testing may be considered 2-3 weeks after this draw. [place] Rev. Code 3701.243(E): This information has been disclosed to you from confidential records protected from disclosure by state law. ???You shall make no further disclosure of this information without the specific, written, and informed release of the individual to whom it pertains or as otherwise permitted by state law. A general authorization for the release of medical or other information is not sufficient for the purpose of the release of HIV test results or diagnoses. Performed By: #### 3 1201-7, 48066-8, 5195-3 ####[facility] LABIA [id number] [place] [address] [place] Reagin and Treponema pallidu m IgG and IgM [Interp]on 11-25-2023 T. pallidum IgG+IgM IA Ql (S) Non-Reactive Normal Nonreactive [facility] Comment on above: Order Comment: Speci men Type: BLOOD SPECIMENOrdering Facility: [facility] Address: [address] [place] [address] Performed By: #### 3 1201-7, 24207-3, 5195-3 ####[facility] LABIA [id number] [place] [id number] [place] Reagin+T pallidum IgG+IgM Se rPl-Impon 11-25-2023 Reagin and Treponema pallidum IgG and IgM [Interp] Cannot exclude recent Treponemal infection if specimen collected within 7-10 days after appearance of suspect lesions or 2-3 weeks after an exposure. Clinical correlation is required. Normal [facility] Comment on above: Order Comment: Speci men Type: BLOOD SPECIMENOrdering Facility: [facility] Address: [address] [place] [address] Performed By: #### 3 1201-7, 65007-6, 5195-3 ####[facility] LABCLIA [id number] [place] [address] [place] TRICHOMONAS VAGINALIS NAATon 11-25-2023 Interpretation and review of laboratory results Normal [facility] T. vaginalis DNA JAVIER+probe Ql (Unsp spec) Negative Negative for Trichomonas vaginalis by amplification [facility] T. vaginalis DNA JAVIER+probe Ql (Unsp spec) Negative Normal Negative for Trichomonas vaginalis by amplification [facility] Comment on above: Order Comment: Speci men Type: SWABOrdering Facility: [facility] Address: [address] [place] [address] Performed By: #### 3 6902-5, TRVAMP ####[facility] LABCLIA [id number] [place] [address] [place] CNOVon 06-12-2023 CNOV Office Visit (UCWSTR ) SAUD SIMPSON ([id number]) 89 F Date Time Provider Department 06/12/23 4:30 PM [facility] During your visit today, we recorded the following information about you: Constance Moncada APRN.CNP 06/12/2023 4:22 PM Signed Called to triage patient, Endorses experiencing chest pain She is one month post She warrants an EKG, Referred to ED Boyfriend at bedside to take patient. Allergies As of Date: 06/12/2023 Noted Allergy Reaction AMOXICILLIN 12/16/2018 4 - Hives CODEINE 03/03/2012 8 - GI Upset Date Reviewed: 06/10/2023 Reviewed by: Torri Weiss MA - Fully Assessed Primary Visit Diagnosis:Chest pain, unspecified type [R07.9] Prescriptions as of 06/12/2023 - docusate sodium (COLACE) 100 mg capsule Take 1 capsule by mouth two times a day. - escitalopram oxalate (LEXAPRO) 10 mg tablet Take 1 tablet by mouth once daily. - ferrous sulfate (IRON ORAL) Take 600 mg by mouth. every other day - nystatin (NYSTOP) powder Apply 1 application to affected area four times daily. - ibuprofen (MOTRIN) 600 mg tablet Take 1 tablet by mouth every 6 hours as needed for pain. FOR PAIN. - polyethylene glycol 3350 17 gram/dose powder Take 17 g by mouth two times a day as needed for constipation. - magnesium oxide (MAG-OX) 400 mg (241.3 mg magnesium) tablet Take 1 tablet by mouth once daily. - BECLOMETHASONE DIPROPIONATE (QVAR INHALATION) Inhale as instructed. - albuterol HFA (VENTOLIN HFA) 90 mcg/actuation inhaler Inhale 2 Puffs as instructed. - albuterol 90 mcg/actuation Aero Inhale 2 Puffs as instructed three times daily as needed. FOR WHEEZING AND SHORTNESS OF BREATH. 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] 09/06/2022 Nausea and vomiting in [O21.9] 09/06/2022 History of depression [Z86.59] 09/06/2022 Family history of defects [Z82.79] 09/06/2022 Maternal care due to low transverse uterine sca*09/12/2022 Low-lying placenta [O44.40] 12/17/2022 Abnormal glucose complicating [O99.81*02/28/2023 Breech presentation [O32.1XX0] 04/22/2023 Encounter Status:Closed by CONSTANCE MONCADA on 06/12/23 Normal [facility] CBC panel Auto (Bld)on 06-10 Erythrocyte distribution width (RBC) [Ratio] 12.5 % Normal 11.5-15.0 [facility] Comment on above: Order Comment: Speci men Type: BLOOD SPECIMENOrdering Facility: [facility] Address: [address] [place] [address] Performed By: #### 5 8410-2 ####[facility] [id number] [place] [address] [place] Hematocrit (Bld) [Volume fraction] 39.2 % Normal 36.0-46.0 [facility] Comment on above: Order Comment: Speci men Type: BLOOD SPECIMENOrdering Facility: [facility] Address: [address] [place] [address] Performed By: #### 5 8410-2 ####[facility] [id number] [place] [address] [place] Hemoglobin (Bld) [Mass/Vol] 12.8 g/dL Normal 11.5-15.5 [facility] Comment on above: Order Comment: Speci men Type: BLOOD SPECIMENOrdering Facility: [facility] Address: [address] [place] [address] Performed By: #### 5 8410-2 ####[facility] [id number] [place] [address] [place] MCH (RBC) [Entitic mass] 29.0 pg Normal 26.0-34.0 [facility] Comment on above: Order Comment: Speci men Type: BLOOD SPECIMENOrdering Facility: [facility] Address: [address] [place] [address] Performed By: #### 5 8410-2 ####[facility] [id number] [place] [address] [place] MCHC (RBC) [Mass/Vol] 32.7 g/dL Normal 30.5-36.0 [facility] Comment on above: Order Comment: Speci men Type: BLOOD SPECIMENOrdering Facility: [facility] Address: [address] [place] [address] Performed By: #### 5 8410-2 ####[facility] [id number] [place] [address] [place] MCV (RBC) [Entitic vol] 88.9 fL Normal 80.0-100.0 [facility] Comment on above: Order Comment: Speci men Type: BLOOD SPECIMENOrdering Facility: [facility] Address: [address] [place] [address] Performed By: #### 5 8410-2 ####[facility] [id number] [place] [address] [place] Nucleated RBC (Bld) [#/Vol] 10*3/uL Normal <0.01 [facility] Comment on above: Order Comment: Speci men Type: BLOOD SPECIMENOrdering Facility: [facility] Address: [address] [place] [address] Performed By: #### 5 8410-2 ####[facility] [id number] [place] [address] [place] Platelet mean volume (Bld) [Entitic vol] 8.9 fL Low 9.0-12.7 [facility] Comment on above: Order Comment: Speci men Type: BLOOD SPECIMENOrdering Facility: [facility] Address: [address] [place] [address] Performed By: #### 5 8410-2 ####[facility] [id number] [place] [address] [place] Platelets (Bld) [#/Vol] 297 10*3/uL Normal 150-400 [facility] Comment on above: Order Comment: Speci men Type: BLOOD SPECIMENOrdering Facility: [facility] Address: [address] [place] [address] Performed By: #### 5 8410-2 ####[facility] [id number] [place] [address] [place] RBC (Bld) [#/Vol] 4.41 10*6/uL Normal 3.90-5.20 [facility] Comment on above: Order Comment: Speci men Type: BLOOD SPECIMENOrdering Facility: [facility] Address: [address] [place] [address] Performed By: #### 5 8410-2 ####[facility] [id number] [place] [address] [place] WBC (Bld) [#/Vol] 6.63 10*3/uL Normal 3.70-11.00 [facility] Comment on above: Order Comment: Speci men Type: BLOOD SPECIMENOrdering Facility: [facility] Address: [address] [place] [address] Performed By: #### 5 8410-2 ####[facility] [id number] [place] [address] [place] Bacteria Wnd Culton 06-03-20 23 Bacteria identified Cx Nom (Wound) ORGANISM ID: 1 Rare skin rock GRAM STAIN: No organisms seen No Polymorphonuclear Leukocytes Normal [facility] Comment on above: Performed By: #### 6 462-6 ####[facility] LABCLIA [id number] [place] [address] [place] CNOVon 06-03-2023 CNOV Office Visit (UCWSTR ) SAUD SIMPSON ([id number]) 89 F Date Time Provider Department 06/03/23 5:15 PM [facility] During your visit today, we recorded the following information about you: Temperature Pulse Respiration Blood pressure 98.6 degrees 100/minute 16/minute 108/66 Weight 73.9 kg Alan Vargas MD 06/03/2023 5:41 PM Signed Patient presents with: Derm Problem: redness and soreness on right side area x 2 days, 04/26 HPI: Skin Lesion: Location: along incision Duration: flared up the last 2 days Pruritis/Pain: sore Change: Drainage/blister/pust ule/ulceration: red, sticky, malodorous Treatment: soap and water Denies fever or chills. She has mild discharge (pink to yellow) which has been present and fluctuating since 04/26. MEDICATIONS: ferrous sulfate (IRON ORAL) Take 600 mg by mouth. every other day docusate sodium (COLACE) 100 mg capsule Take 1 capsule by mouth two times a day. ibuprofen (MOTRIN) 600 mg tablet Take 1 tablet by mouth every 6 hours as needed for pain. FOR PAIN. polyethylene glycol 3350 17 gram/dose powder Take 17 g by mouth two times a day as needed for constipation. magnesium oxide (MAG-OX) 400 mg (241.3 mg magnesium) tablet Take 1 tablet by mouth once daily. BECLOMETHASONE DIPROPIONATE (QVAR INHALATION) Inhale as instructed. albuterol 90 mcg/actuation Aero Inhale 2 Puffs as instructed three times daily as needed. FOR WHEEZING AND SHORTNESS OF BREATH. albuterol HFA (VENTOLIN HFA) 90 mcg/actuation inhaler Inhale 2 Puffs as instructed. ALLERGIES: ALLERGIES Allergen Reactions Amoxicillin Hives Codeine GI Upset VITALS: BP 108/66 Pulse 100 Temp 37 ?C (98.6 ?F) Resp 16 Wt 73.9 kg (163 lb) LMP 07/19/2022 (Exact Date) SpO2 99% BMI 32.92 kg/m? PE: Pleasant, in no acute distress. Accompanied by her SKIN: erythematous rash of opposing surfaces below the abdominal panus. There are shallow ulcerations and slight indurated patches. incision is well approximated. ASSESSMENT/PLAN: 1. Intertrigo - ICD9: 695.89, ICD10: L30.4 Keep area dry. - NYSTATIN 100,000 UNIT/GRAM TOPICAL POWDER Keep a cloth like a handkerchief or shirt between the skin folds. - ABSCESS AND WOUND CULTURE WITH GRAM STAIN Alan Vargas MD Allergies As of Date: 06/03/2023 Noted Allergy Reaction AMOXICILLIN 12/16/2018 4 - Hives CODEINE 03/03/2012 8 - GI Upset Date Reviewed: 06/03/2023 Reviewed by: Alyce Shannon - Fully Assessed Reason for Visit: Derm Problem [33] Cmt: redness and soreness on right side area x 2 days, 04/26 Primary Visit Diagnosis:Intertrigo [L30.4] Order(s):nystatin (NYSTOP) powderApply 1 application to affected area four times daily.Disp: 60 gRfl: 0 ABSCESS AND WOUND CULTURE WITH GRAM STAIN [SQWCUL] Order #: [id number]. #:[id number] Prescriptions as of 06/03/2023 - ferrous sulfate (IRON ORAL) Take 600 mg by mouth. every other day - nystatin (NYSTOP) powder Apply 1 application to affected area four times daily. - docusate sodium (COLACE) 100 mg capsule Take 1 capsule by mouth two times a day. - ibuprofen (MOTRIN) 600 mg tablet Take 1 tablet by mouth every 6 hours as needed for pain. FOR PAIN. - polyethylene glycol 3350 17 gram/dose powder Take 17 g by mouth two times a day as needed for constipation. - magnesium oxide (MAG-OX) 400 mg (241.3 mg magnesium) tablet Take 1 tablet by mouth once daily. - BECLOMETHASONE DIPROPIONATE (QVAR INHALATION) Inhale as instructed. - albuterol HFA (VENTOLIN HFA) 90 mcg/actuation inhaler Inhale 2 Puffs as instructed. - albuterol 90 mcg/actuation Aero Inhale 2 Puffs as instructed three times daily as needed. FOR WHEEZING AND SHORTNESS OF BREATH. 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 Normal [facility] CBC W Auto Differential pane l (Bld)on 05-09-2023 Basophils (Bld) [#/Vol] 0.05 10*3/uL <0.11 k/uL [facility] Basophils/100 WBC (Bld) 0.6 % [facility] Differential cell count method Nom (Bld) Auto [facility] Eosinophils (Bld) [#/Vol] 0.16 10*3/uL <0.46 k/uL [facility] Eosinophils/100 WBC (Bld) 1.9 % [facility] Erythrocyte distribution width (RBC) [Ratio] 13.6 % 11.5 - 15.0 % [facility] Hematocrit (Bld) [Volume fraction] 34.1 % Low 36.0 - 46.0 % [facility] Hemoglobin (Bld) [Mass/Vol] 11.0 g/dL Low 11.5 - 15.5 g/dL [facility] Immature granulocytes (Bld) [#/Vol] 0.03 10*3/uL <0.10 k/uL [facility] Immature granulocytes/100 WBC (Bld) 0.4 % [facility] Lymphocytes (Bld) [#/Vol] 1.79 10*3/uL 1.00 - 4.00 k/uL [facility] Lymphocytes/100 WBC (Bld) 21.6 % [facility] MCH (RBC) [Entitic mass] 30.1 pg 26.0 - 34.0 pg [facility] MCHC (RBC) [Mass/Vol] 32.3 g/dL 30.5 - 36.0 g/dL [facility] MCV (RBC) [Entitic vol] 93.4 fL 80.0 - 100.0 fL [facility] Monocytes (Bld) [#/Vol] 0.53 10*3/uL <0.87 k/uL [facility] Monocytes/100 WBC (Bld) 6.4 % [facility] Neutrophils (Bld) [#/Vol] 5.73 10*3/uL 1.45 - 7.50 k/uL [facility] Neutrophils/100 WBC (Bld) 69.1 % [facility] Nucleated RBC (Bld) [#/Vol] <0.01 k/uL [facility] Nucleated RBC/100 WBC (Bld) [Ratio] 0.0 /100 WBC [facility] Platelet mean volume (Bld) [Entitic vol] 8.4 fL Low 9.0 - 12.7 fL [facility] Platelets (Bld) [#/Vol] 304 10*3/uL 150 - 400 k/uL [facility] RBC (Bld) [#/Vol] 3.65 10*6/uL Low 3.90 - 5.20 m/uL [facility] WBC (Bld) [#/Vol] 8.29 10*3/uL 3.70 - 11.00 k/u L [facility] Basophils (Bld) [#/Vol] 0.05 10*3/uL Normal <0.11 [facility] Comment on above: Order Comment: Speci men Type: BLOOD SPECIMENOrdering Facility: [facility] Address: [address] [place] [address] Performed By: #### 5 7021-8 ####[facility]ITALWNCLIA [id number] [place] [address] [place] Basophils/100 WBC (Bld) 0.6 % Normal [facility] Comment on above: Order Comment: Speci men Type: BLOOD SPECIMENOrdering Facility: [facility] Address: [address] [place] [address] Performed By: #### 5 7021-8 ####[facility] [id number] [place] [address] [place] Differential cell count method Nom (Bld) Auto Normal [facility] Comment on above: Order Comment: Speci men Type: BLOOD SPECIMENOrdering Facility: [facility] Address: [address] [place] [address] Performed By: #### 5 7021-8 ####[facility] [id number] [place] [address] [place] Eosinophils (Bld) [#/Vol] 0.16 10*3/uL Normal <0.46 [facility] Comment on above: Order Comment: Speci men Type: BLOOD SPECIMENOrdering Facility: [facility] Address: [address] [place] [address] Performed By: #### 5 7021-8 ####[facility] [id number] [place] [address] [place] Eosinophils/100 WBC (Bld) 1.9 % Normal [facility] Comment on above: Order Comment: Speci men Type: BLOOD SPECIMENOrdering Facility: [facility] Address: [address] [place] [address] Performed By: #### 5 7021-8 ####[facility]ITALLIA [id number] [place] [address] [place] Erythrocyte distribution width (RBC) [Ratio] 13.6 % Normal 11.5-15.0 [facility] Comment on above: Order Comment: Speci men Type: BLOOD SPECIMENOrdering Facility: [facility] Address: [address] [place] [address] Performed By: #### 5 7021-8 ####[facility] [id number] [place] [address] [place] Hematocrit (Bld) [Volume fraction] 34.1 % Low 36.0-46.0 [facility] Comment on above: Order Comment: Speci men Type: BLOOD SPECIMENOrdering Facility: [facility] Address: [address] [place] [address] Performed By: #### 5 7021-8 ####[facility] [id number] [place] [address] [place] Hemoglobin (Bld) [Mass/Vol] 11.0 g/dL Low 11.5-15.5 [facility] Comment on above: Order Comment: Speci men Type: BLOOD SPECIMENOrdering Facility: [facility] Address: [address] [place] [address] Performed By: #### 5 7021-8 ####[facility] [id number] [place] [address] [place] Immature granulocytes (Bld) [#/Vol] 0.03 10*3/uL Normal <0.10 [facility] Comment on above: Order Comment: Speci men Type: BLOOD SPECIMENOrdering Facility: [facility] Address: [address] [place] [address] Performed By: #### 5 7021-8 ####[facility] [id number] [place] [address] [place] Immature granulocytes/100 WBC (Bld) 0.4 % Normal [facility] Comment on above: Order Comment: Speci men Type: BLOOD SPECIMENOrdering Facility: [facility] Address: [address] [place] [address] Performed By: #### 5 7021-8 ####[facility] [id number] [place] [address] [place] Lymphocytes (Bld) [#/Vol] 1.79 10*3/uL Normal 1.00-4.00 [facility] Comment on above: Order Comment: Speci men Type: BLOOD SPECIMENOrdering Facility: [facility] Address: [address] [place] [address] Performed By: #### 5 7021-8 ####[facility] [id number] [place] [address] [place] Lymphocytes/100 WBC (Bld) 21.6 % Normal [facility] Comment on above: Order Comment: Speci men Type: BLOOD SPECIMENOrdering Facility: [facility] Address: [address] [place] [address] Performed By: #### 5 7021-8 ####[facility] [id number] [place] [address] [place] MCH (RBC) [Entitic mass] 30.1 pg Normal 26.0-34.0 [facility] Comment on above: Order Comment: Speci men Type: BLOOD SPECIMENOrdering Facility: [facility] Address: [address] [place] [address] Performed By: #### 5 7021-8 ####[facility] [id number] [place] [address] [place] MCHC (RBC) [Mass/Vol] 32.3 g/dL Normal 30.5-36.0 [facility] Comment on above: Order Comment: Speci men Type: BLOOD SPECIMENOrdering Facility: [facility] Address: [address] [place] [address] Performed By: #### 5 7021-8 ####[facility] CINDYTACHO [id number] [place] [address] [place] MCV (RBC) [Entitic vol] 93.4 fL Normal 80.0-100.0 [facility] Comment on above: Order Comment: Speci men Type: BLOOD SPECIMENOrdering Facility: [facility] Address: [address] [place] [address] Performed By: #### 5 7021-8 ####[facility] CENTERNCYESENIA [id number] [place] [address] [place] Monocytes (Bld) [#/Vol] 0.53 10*3/uL Normal <0.87 [facility] Comment on above: Order Comment: Speci men Type: BLOOD SPECIMENOrdering Facility: [facility] Address: [address] [place] [address] Performed By: #### 5 7021-8 ####[facility] [id number] [place] [address] [place] Monocytes/100 WBC (Bld) 6.4 % Normal [facility] Comment on above: Order Comment: Speci men Type: BLOOD SPECIMENOrdering Facility: [facility] Address: [address] [place] [address] Performed By: #### 5 7021-8 ####[facility] [id number] [place] [address] [place] Neutrophils (Bld) [#/Vol] 5.73 10*3/uL Normal 1.45-7.50 [facility] Comment on above: Order Comment: Speci men Type: BLOOD SPECIMENOrdering Facility: [facility] Address: [address] [place] [address] Performed By: #### 5 7021-8 ####[facility] [id number] [place] [address] [place] Neutrophils/100 WBC (Bld) 69.1 % Normal [facility] Comment on above: Order Comment: Speci men Type: BLOOD SPECIMENOrdering Facility: [facility] Address: [address] [place] [address] Performed By: #### 5 7021-8 ####[facility] [id number] [place] [address] [place] Nucleated RBC (Bld) [#/Vol] 10*3/uL Normal <0.01 [facility] Comment on above: Order Comment: Speci men Type: BLOOD SPECIMENOrdering Facility: [facility] Address: [address] [place] [address] Performed By: #### 5 7021-8 ####[facility] [id number] [place] [address] [place] Nucleated RBC/100 WBC (Bld) [Ratio] 0.0 /100 WBC Normal [facility] Comment on above: Order Comment: Speci men Type: BLOOD SPECIMENOrdering Facility: [facility] Address: [address] [place] [address] Performed By: #### 5 7021-8 ####[facility] [id number] [place] [address] [place] Platelet mean volume (Bld) [Entitic vol] 8.4 fL Low 9.0-12.7 [facility] Comment on above: Order Comment: Speci men Type: BLOOD SPECIMENOrdering Facility: [facility] Address: [address] [place] [address] Performed By: #### 5 7021-8 ####[facility] [id number] [place] [address] [place] Platelets (Bld) [#/Vol] 304 10*3/uL Normal 150-400 [facility] Comment on above: Order Comment: Speci men Type: BLOOD SPECIMENOrdering Facility: [facility] Address: [place] [address] Performed By: #### 5 7021-8 ####[facility]ITALWNCLIA [id number] [place] [address] [place] RBC (Bld) [#/Vol] 3.65 10*6/uL Low 3.90-5.20 [facility] Comment on above: Order Comment: Speci men Type: BLOOD SPECIMENOrdering Facility: [facility] Address: [place] [address] Performed By: #### 5 7021-8 ####[facility]ENT[facility]CL[facility] [id number] [place] [address] [place] WBC (Bld) [#/Vol] 8.29 10*3/uL Normal 3.70-11.00 [facility] Comment on above: Order Comment: Speci men Type: BLOOD SPECIMENOrdering Facility: [facility] Address: [place] [address] Performed By: #### 5 7021-8 ####[facility]ENT[facility]CLIA [id number] [place] [address] [place] Taryn 05-07-2023 CNPN Telephone (AVERYGY) SAUD SIMPSON ([id number]) 89 F Date Time Provider Department 05/07/23 CONSTANCE SUAREZ During your visit today, we recorded the following information about you: Mily Forrester RN 05/07/2023 3:39 PM Signed Patient had c/s 04/26. Calling because she started bleeding heavier with clots mid morning. Using poise diaper pads and has had to change it 3 times today so far. No chest pain or shortness of breath or fatigue. She is having dizziness. Having menstrual like cramping with it and abdomen is tender to touch. No fever or odor. Please advise. Constance Mccullough RN, APRN.CNM 05/07/2023 4:43 PM Signed Please schedule patient for appointment tomorrow for evaluation due to symptomatic. If needed can go to ED. SHON Clark Teresa RN 05/07/2023 5:14 PM Signed Offered patient appointment tomorrow-pt declined. She has appointments for her infant. Appointment given for 05/09/2023.Pt given bleeding precautions given. Pt to go to ER if bleeding increases, develops fever, palpitations , SOB or visual disturbances Allergies As of Date: 05/07/2023 Noted Allergy Reaction AMOXICILLIN 12/16/2018 4 - Hives CODEINE 03/03/2012 8 - GI Upset Date Reviewed: 05/06/2023 Reviewed by: Carole Quintero MD - Fully Assessed Reason for Visit: Bleeding [Other] Prescriptions as of 05/07/2023 - ibuprofen (MOTRIN) 600 mg tablet Take 1 tablet by mouth every 6 hours as needed for pain. FOR PAIN. - polyethylene glycol 3350 17 gram/dose powder Take 17 g by mouth two times a day as needed for constipation. - magnesium oxide (MAG-OX) 400 mg (241.3 mg magnesium) tablet Take 1 tablet by mouth once daily. - prental multivitamin 27 mg iron- 800 mcg tablet Take 1 tablet by mouth once daily. - BECLOMETHASONE DIPROPIONATE (QVAR INHALATION) Inhale as instructed. - albuterol HFA (VENTOLIN HFA) 90 mcg/actuation inhaler Inhale 2 Puffs as instructed. - albuterol 90 mcg/actuation Aero Inhale 2 Puffs as instructed three times daily as needed. FOR WHEEZING AND SHORTNESS OF BREATH. 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] 09/06/2022 Nausea and vomiting in [O21.9] 09/06/2022 History of depression [Z86.59] 09/06/2022 Family history of defects [Z82.79] 09/06/2022 Maternal care due to low transverse uterine sca*09/12/2022 Low-lying placenta [O44.40] 12/17/2022 Abnormal glucose complicating [O99.81*02/28/2023 Breech presentation [O32.1XX0] 04/22/2023 Encounter Status:Closed by LEXA FELTON RN on 05/07/23 [facility] 05-01-2023 [facility] Telephone (OBGYWM) SAUD SIMPSON ([id number]) 89 F Date Time Provider Department 05/01/23 SHERIN DECKER During your visit today, we recorded the following information about you: Melisa Suarez, SONIA 05/01/2023 1:43 PM Signed Patient delivered via c/s 04/26/23 with SW. Reports telling provider she did not want prescription pain medication going home but is now in pain rating it 7/10 and requesting a prescription. Pain is mostly in lower back, stabbing pain. Some abdominal cramping. Patient has been taking tylenol with little relief. Also reports constipation. Recommended over the counter stool softener. Asking if she can be prescribed something for pain. Please advise. SONIA Maurice Courtney, APRN.CNM 05/01/2023 2:25 PM Signed The pain medication was to be used the first 3 days home from hospital. I cannot give her any prescription for pain medications. She should still be rotating the Tylenol and Motrin and not skipping any doses. SHON Car Courtney, APRN.CNM 05/01/2023 2:27 PM Signed She should take a stool softener daily and if needs- Miralax if unable to have BM. SHON Car Danielle, RN 05/01/2023 2:38 PM Signed Patient notified. MELISA SUAREZ RN Allergies As of Date: 05/01/2023 Noted Allergy Reaction AMOXICILLIN 12/16/2018 4 - Hives CODEINE 03/03/2012 8 - GI Upset Date Reviewed: 04/22/2023 Reviewed by: Torri Weiss MA - Fully Assessed Prescriptions as of 05/01/2023 - blood sugar diagnostic test strip 1 Strip four times daily. Use as instructed - Lancets lancets 1 Each four times daily. Use as instructed - magnesium oxide (MAG-OX) 400 mg (241.3 mg magnesium) tablet Take 1 tablet by mouth once daily. - aspirin, enteric coated (ECOTRIN LOW STRENGTH) 81 mg EC tablet Take 1 tablet by mouth once daily. - prental multivitamin 27 mg iron- 800 mcg tablet Take 1 tablet by mouth once daily. - BECLOMETHASONE DIPROPIONATE (QVAR INHALATION) Inhale as instructed. - albuterol HFA (VENTOLIN HFA) 90 mcg/actuation inhaler Inhale 2 Puffs as instructed. - albuterol 90 mcg/actuation Aero Inhale 2 Puffs as instructed three times daily as needed. FOR WHEEZING AND SHORTNESS OF BREATH. 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 Author Type: Physician Type: HANDP Filed: 04/22/2023 12:17 PM Note Text: DATE OF SERVICE: April 22, 2023 PROBLEM: repeat section, desires sterilization DIAGNOSIS: as above PAST SURGICAL HISTORY: PAST SURGICAL HISTORY Procedure Laterality Date DELIVERY ONLY 12/15/2021 PAST SURGICAL HISTORY OF Right 11/26/2018 patellar stabilization and right knee meniscal repair PAST MEDICAL HISTORY: PAST MEDICAL HISTORY Diagnosis Date ADD (attention deficit disorder) ADHD (attention deficit hyperactivity disorder) Anemia Asthma Chlamydia Hypochondroplasia depression SUBJECTIVE: Irregular ctx's. Nothing regular so hard for her to keep track. SOCIAL HISTORY: Social History Tobacco Use Smoking status: Never Smokeless tobacco: Never Vaping Use Vaping Use: Never used Substance Use Topics Alcohol use: Not Currently Comment: rare, once a month Drug use: No ALLERGIES Allergen Reactions Amoxicillin Hives Codeine GI Upset Current Outpatient Medications on File Prior to Visit Medication Sig blood sugar diagnostic test strip 1 Strip four times daily. Use as instructed Lancets lancets 1 Each four times daily. Use as instructed magnesium oxide (MAG-OX) 400 mg (241.3 mg magnesium) tablet Take 1 tablet by mouth once daily. prental multivitamin 27 mg iron- 800 mcg tablet Take 1 tablet by mouth once daily. BECLOMETHASONE DIPROPIONATE (QVAR INHALATION) Inhale as instructed. albuterol HFA (VENTOLIN HFA) 90 mcg/actuation inhaler Inhale 2 Puffs as instructed. albuterol 90 mcg/actuation Aero Inhale 2 Puffs as instructed three times daily as needed. FOR WHEEZING AND SHORTNESS OF BREATH. aspirin, enteric coated (ECOTRIN LOW STRENGTH) 81 mg EC tablet Take 1 tablet by mouth once daily. No current facility-administered medications on file prior to visit. OBJECTIVE: VITALS: BP 100/60 Wt 174 lb 12.8 oz (79.3 kg) LMP 07/19/2022 (Exact Date) BMI 35.31 kg/m? HEENT: Normocephalic, atraumatic, Mucus membranes moist without lesions. NECK: Soft and Supple. No adenopathy , thyromegaly or bruits. SKIN: No lesions. CHEST: No increased resp effort. HEART: Regular rate and rhythm. BACK: Nontender with no CVA tenderness. ABDOMEN: Soft, non-tender, non-distended, no masses, no hepatosplenomegaly. On Alli's baby felt to be breech presentation with buttock in the pelvis. Doppler with +FHT above umbilicus LOWER EXTREMITIES: There was no pitting edema, no palpable cords and no skin changes. ASSESSMENT: repeat section with sterilization PLAN: 1) Discussed r/b/a to repeat section with sterilization. She understands sterilization is permanent and irreversible. She is 100% certain she does not desire additional pregnancies in the future. She understands she is not a good TOLAC candidate given narrow pelvis and breech on exam today. Reviewed labor precautions and reasons to come in. Patient was just evaluated on LANDD overnight. The rationale for the proposed surgery was discussed in addition to risks, benefits, and alternatives. General pre- and post-operative care was reviewed. Questions were answered. After discussion, the patient indicated a desire to proceed with the planned surgery. Lise Concepcion DO Medical Decision Making: Problems: Moderate: New problem with uncertain prognosis Risk: High: Decision on elective major surgery w/ risk factors Medical Decision Making Level: 4 - Moderate Normal [facility] URINE OB DIP B/Oon 3 Glucose Ql (U) Negative Neg mg/dL [facility] Protein.monoclonal (U) [Mass/Vol] Negative Neg mg/dL [facility] URINE OB DIP B/Oon 3 Glucose Ql (U) Negative Neg mg/dL [facility] Protein.monoclonal (U) [Mass/Vol] Negative Neg mg/dL [facility] OBSTETRIC ULTRASOUND WHIon 1 [facility] URINE OB DIP B/Oon 3 Glucose Ql (U) Negative Neg mg/dL [facility] Protein.monoclonal (U) [Mass/Vol] Negative Neg mg/dL [facility] ROUTINE, GROUP B ST REP PCRon 04-05-2023 ROUTINE, GROUP B STREP PCR GROUP B STREP PCR: Negative for Group B Streptococcus by PCR. Normal [facility] Comment on above: Performed By: #### G BPCR ####[facility] LABCLIA [id number] [place] [address] [place] URINE OB DIP B/Oon 3 Glucose Ql (U) Negative Neg mg/dL [facility] Protein.monoclonal (U) [Mass/Vol] Negative Neg mg/dL [facility] FETALon 03-05-2023 ++ - ++ [facility] Echocardiogram Report ++ ++ NAME: MISS SAUD SIMPSON : 2000 Age: 22 years Due Date: 07/24/2021 Gender: F Study Date: 03/05/2023 1:43:06 PM GA: 31.40 Requested By: Dr Luís Santacruz. Physician: Dr Keyon Glover Study Location: [facility] Study Quality: The images were of adequate diagnostic quality Diagnosis: O35.9XX1 Maternal care for (suspected) abnormality and damage, unspecified, fetus 1 History: Family history of CHD. Indications: Follow up study. Procedures: 70757 Echo, Complete; 62186 Doppler, Complete; 00595 Doppler Color Flow INTERPRETATION SUMMARY 1. No structural abnormalities. 2. No valvular abnormalities. 3. Normal chamber sizes. 4. Qualitatively normal biventricular systolic function. 5. No significant ventricular hypertrophy. 6. Normal heart rate and normal Dopplers. 7. Widely patent aortic and ductal arches. 8. No pericardial effusion. Please see consult note in Epic. The results and limitations of the echocardiogram and echocardiography in general, including the inability to exclude ASDs, some VSDs, minor valvar abnormalities, partial anomalous pulmonary venous return, persistent patent ductus arteriosus, and coarctation of the aorta, were explained to the patient. MEASUREMENTS: MV Annulus, diam: 0.97 cm Z score: 0.96 PV Annulus: 0.75 cm Z Score: 0.32 EFW Zscore: 0.55 TV Annulus d A/P: 0.93 cm Zscore: -0.38 Ao Annulus: 0.52 cm Z score: -1.14 EFW Zscore: -1.00 Biometrics: The BPD is measured at 7.98 cm. The AC is measured at 27.99 cm. The FL is measured at 6.46 cm. The estimated weight is calculated at 1870.72 g. Blood Flow/Rhythm: The Heart rate is regular and 150 bpm. The umbilical artery flow is normal. The umbilical vein flow is normal. The ductus venosus flow is normal. POSITION/CONNECTION: Levocardia. Atrial situs solitus. Normal atrioventricular alignment. Normally related great arteries. VEINS: Systemic Veins: A right superior vena cava drains normally to the right atrium. The inferior vena cava is right-sided, entering the atrium. Pulmonary Veins: One right sided and one left sided pulmonary vein are seen returning to the left atrium. ATRIA/SEPTUM: Atria: The left atrium is normal size. The right atrium is normal in size. There is normal right to left shunting at the atrial septum. AV VALVES/CANAL: Mitral Valve: The mitral valve leaflets are normal in appearance. No mitral regurgitation is present. Tricuspid Valve: The tricuspid valve is normal in appearance. No tricuspid regurgitation is present. VENTRICLES: Left Ventricle: The left ventricle is normal in size. There is normal wall thickness. Left ventricular systolic function is normal. EIF seen in LV. Right Ventricle: The right ventricular chamber is of normal size. The right ventricular function appears qualitatively normal. There is no evidence of right ventricular hypertrophy. VSD: There is an intact ventricular septum. No obvious VSD seen. OUTFLOW TRACTS: LVOT: There is no left ventricular outflow tract obstruction. Aortic Valve: Normal appearing aortic valve. No aortic regurgitation is present. RVOT: There is no right ventricular outflow tract obstruction. Pulmonary Valve: The pulmonary valve is normal in appearance. No evidence of pulmonary regurgitation seen. GREAT ARTERIES: Ductal and aortic arches appear patent. OTHER: Pericardium: There is no pericardial effusion. Performed by Denisse Morse. Electronically signed by Keyon Glover DO, 03/05/2023 2:41:48 PM. Final [facility] [facility] Image : [id number] See Link below for Image Normal [facility] CNPNon 02-26-2023 CNPN Telephone ([facility]) SAUD SIMPSON ([id number]) 89 F Date Time Provider Department 02/26/23 MITRA JACOBSON [facility] During your visit today, we recorded the following information about you: Mitra Jacobson, RN 02/26/2023 9:24 AM Avery Darling called me to reschedule her echo. She stated that her ride is unable to bring her. This is the 3rd time she has rescheduled.I encouraged her to call her insurance to secure a ride for her appt next week. She stated I do not use [facility] for rides, they are rude to me and told me that they would not give me a ride next time. I encouraged her to come to come to her appts. Support given Allergies As of Date: 02/26/2023 Noted Allergy Reaction AMOXICILLIN 12/16/2018 4 - Hives CODEINE 03/03/2012 8 - GI Upset Date Reviewed: 02/05/2023 Reviewed by: Carole Quintero MD - Fully Assessed Reason for Visit: Appointment [186] Prescriptions as of 02/26/2023 - magnesium oxide (MAG-OX) 400 mg (241.3 mg magnesium) tablet Take 1 tablet by mouth once daily. - aspirin, enteric coated (ECOTRIN LOW STRENGTH) 81 mg EC tablet Take 1 tablet by mouth once daily. - prental multivitamin 27 mg iron- 800 mcg tablet Take 1 tablet by mouth once daily. - BECLOMETHASONE DIPROPIONATE (QVAR INHALATION) Inhale as instructed. - albuterol HFA (VENTOLIN HFA) 90 mcg/actuation inhaler Inhale 2 Puffs as instructed. - albuterol 90 mcg/actuation Aero Inhale 2 Puffs as instructed three times daily as needed. FOR WHEEZING AND SHORTNESS OF BREATH. 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] 09/06/2022 Nausea and vomiting in [O21.9] 09/06/2022 History of depression [Z86.59] 09/06/2022 Family history of defects [Z82.79] 09/06/2022 Maternal care due to low transverse uterine sca*09/12/2022 Low-lying placenta [O44.40] 12/17/2022 Encounter Status:Closed by MITRA JACOBSON on 02/26/23 Normal [facility] URINE OB DIP B/Oon 3 Glucose Ql (U) Negative Neg mg/dL [facility] Protein.monoclonal (U) [Mass/Vol] 30 mg/dL Neg mg/dL [facility] URINE OB DIP B/Oon 3 Glucose Ql (U) Negative Neg mg/dL [facility] Protein.monoclonal (U) [Mass/Vol] Negative Neg mg/dL [facility] URINE OB DIP B/Oon 3 Glucose Ql (U) Negative Neg mg/dL [facility] Protein.monoclonal (U) [Mass/Vol] Negative Neg mg/dL [facility] OBSTETRIC ULTRASOUND WHIon 0 01-01-2023 [facility] OBSTETRIC ULTRASOUND WHIon 0 12-11-2022 [facility] NUCHAL TRANSLUCENCY WHIon [facility] URINE OB DIP B/Oon 3 Glucose Ql (U) Negative Neg mg/dL [facility] Protein.monoclonal (U) [Mass/Vol] Negative Neg mg/dL [facility] Group B Strep Screen PCRon 0 11-03-2021 Group B Strep Screen PCR Group B Strep Screen PCR --> Status: F NEGATIVE Expected Result: Negative CDC guidelines for prevention of Group B Strep disease recommends collection of both vaginal and rectal specimens for optimal recovery of GBS. Methodology - Real Time PCR (I-CAN Systemsheid) Expected Result: Negative CDC guidelines for prevention of Group B Strep disease recommends collection of both vaginal and rectal specimens for optimal recovery of GBS. Methodology - Real Time PCR (I-CAN Systemsheid) Normal [facility] Comment on above: Performed By: #### [facility] #### [address] [id number] [facility] US Biophy w/o non- stresson 11-03-2021 [facility] US Biophy w/o non-stress Patient Name: SAUD SIMPSON Maternal Medicine ACCESSION EXAM DATE/TIME PROCEDURE ORDERING PROVIDER [id number] 11/03/2021 10:01 EDT [facility] US After JENN FULLER 1st Trimester Reason For Exam ([facility] US After 1st Trimester) kaykay MARCOS, UAD, BPP Report ------- OBSTETRICS REPORT (Signed Final 11/03/2021 02:31 pm) ------- PATIENT INFO: ID #: [id number] : [birth year] (20 yrs) Name: SAUD SIMPSON Visit Date: 11/03/2021 10:00 am ------- PERFORMED BY: Attending: Natalie Haynes MD Performed By: Ernie Lozada Referred By: JENN FULLER Location: Inpatient- Hospital Visit Type: Inpatient - Hospital ------- SERVICE(S) PROVIDED: US >= 14 weeks 88719 BPP w/out NST 69759 US Doppler umbilical art 87532 ------- INDICATIONS: FGR ------- VITAL SIGNS: Weight (lb): 169 Height: 4'11 BMI: 34.13 ------- EVALUATION: Num Of Fetuses: 1 Heart Rate(bpm): 130 Cardiac Activity: Regular rhythm Lie: Longitudinal Presentation: Breech Placenta: Fundal Amniotic Fluid ALECIA FV: Within normal limits ALECIA Sum(cm) %Tile Largest Pocket(cm) Maternal Medicine Report 12.7 36 4 RUQ(cm) RLQ(cm) LUQ(cm) LLQ(cm) 2.4 3.3 3 4 ------- BIOPHYSICAL EVALUATION: Amniotic F.V: Within normal limits F. Tone: Observed F. Movement: Observed Score: 01/29 F. Breathing: Observed ------- BIOMETRY: BPD: 72.5 mm G.Age: 29w 1d 3 % OFD: 98.9 mm HC: 274.9 mm G.Age: 30w 0d 4 % AC: 253.5 mm G.Age: 29w 4d 11 % FL: 56.1 mm G.Age: 29w 4d 7 % LV: 3.78 mm CI: 73.3 % 70 - 86 FL/HC: 20.4 % 19.3 - 21.3 HC/AC: 1.08 0.96 - 1.17 FL/BPD: 77.4 % 71 - 87 FL/AC: 22.1 % 20 - 24 Est. FW: 1412 gm 3 lb 2 oz 31 % ------- GESTATIONAL AGE: Clinical OBDULIA: 31w 0d OBDULIA: 01/05/22 U/S Today: 29w 4d OBDULIA: 01/15/22 Best: 31w 0d Det. By: Clinical OBDULIA OBDULIA: 01/05/22 ------- ANATOMY: Cranium: Normal appearance Cavum: Normal appearance Ventricles: Normal appearance Choroid Plexus: Normal appearance Cerebellum: Normal appearance Posterior Fossa: Normal appearance Thoracic: Normal appearance Heart: Normal appearance RVOT: Normal appearance LVOT: Normal appearance Diaphragm: Normal appearance Stomach: Normal appearance Abdomen: Normal appearance Abdominal Wall: Normal appearance Cord Vessels: 3-Vessel Cord Kidneys: Normal appearance Bladder: Normal appearance Upper Extremities: Present Lower Extremities: Present ------- DOPPLER - VESSELS: Umbilical Artery S/D %tile RI %tile PI %tile PSV (cm/s) 3.23 76 0.69 78 1.16 88 59.49 ------- Maternal Medicine Report IMPRESSION: Cross live intrauterine at 31w 0d. Normal growth; EFW 1412 grams, which is at the 31% for this gestational age. The AC is at the 11th percentile today The amniotic fluid index is 12.7cm, which is within normal limits. BPP 8/8 Normal UAD see IP plan Ultrasound is not diagnostic of chromosomal aneuploidy and does not detect all subtle defects. Normal ultrasound findings do not guarantee normal outcomes. ------- Natalie Haynes MD Electronically Signed Final Report 11/03/2021 02:31 pm ------- Final Dictated: 11/03/2021 10:00 am Dictating Physician: NATALIE DAVENPORT Signed Date and Time: 11/03/2021 2:32 pm Signed by: NATALIE DAVENPORT Ultrasound ACCESSION EXAM DATE/TIME PROCEDURE ORDERING PROVIDER [id number] 11/03/2021 10:01 EDT [facility] US After JENN FULLER 1st Trimester Reason For Exam ([facility] US After 1st Trimester) kaykay MARCOS, YOVANY, KEEGAN Report ------- OBSTETRICS REPORT (Signed Final 11/03/2021 02:31 pm) ------- PATIENT INFO: ID #: [id number] : [birth year] (20 yrs) Name: SAUD SIMPSON Visit Date: 11/03/2021 10:00 am (more content not included)... [facility] US After 1st T jayne 11-03-2021 [facility] US After 1st Trimester Patient Name: SAUD SIMPSON Maternal Medicine ACCESSION EXAM DATE/TIME PROCEDURE ORDERING PROVIDER [id number] 11/03/2021 10:01 EDT [facility] US After JENN FULLER 1st Trimester Reason For Exam ([facility] US After 1st Trimester) kaykay US, UAD, BPP Report ------- OBSTETRICS REPORT (Signed Final 11/03/2021 02:31 pm) ------- PATIENT INFO: ID #: [id number] : [birth year] (20 yrs) Name: SAUD SIMPSON Visit Date: 11/03/2021 10:00 am ------- PERFORMED BY: Attending: Natalie Haynes MD Performed By: Ernie Lozada Referred By: JENN FULLER Location: Inpatient- Hospital Visit Type: Inpatient - Hospital ------- SERVICE(S) PROVIDED: US >= 14 weeks 44314 BPP w/out NST 89795 US Doppler umbilical art 30530 ------- INDICATIONS: FGR ------- VITAL SIGNS: Weight (lb): 169 Height: 4'11 BMI: 34.13 ------- EVALUATION: Num Of Fetuses: 1 Heart Rate(bpm): 130 Cardiac Activity: Regular rhythm Lie: Longitudinal Presentation: Breech Placenta: Fundal Amniotic Fluid ALECIA FV: Within normal limits ALECIA Sum(cm) %Tile Largest Pocket(cm) Maternal Medicine Report 12.7 36 4 RUQ(cm) RLQ(cm) LUQ(cm) LLQ(cm) 2.4 3.3 3 4 ------- BIOPHYSICAL EVALUATION: Amniotic F.V: Within normal limits F. Tone: Observed F. Movement: Observed Score: 01/29 F. Breathing: Observed ------- BIOMETRY: BPD: 72.5 mm G.Age: 29w 1d 3 % OFD: 98.9 mm HC: 274.9 mm G.Age: 30w 0d 4 % AC: 253.5 mm G.Age: 29w 4d 11 % FL: 56.1 mm G.Age: 29w 4d 7 % LV: 3.78 mm CI: 73.3 % 70 - 86 FL/HC: 20.4 % 19.3 - 21.3 HC/AC: 1.08 0.96 - 1.17 FL/BPD: 77.4 % 71 - 87 FL/AC: 22.1 % 20 - 24 Est. FW: 1412 gm 3 lb 2 oz 31 % ------- GESTATIONAL AGE: Clinical OBDULIA: 31w 0d OBDULIA: 01/05/22 / Today: 29w 4d OBDULIA: 01/15/22 Best: 31w 0d Det. By: Clinical OBDULIA OBDULIA: 01/05/22 ------- ANATOMY: Cranium: Normal appearance Cavum: Normal appearance Ventricles: Normal appearance Choroid Plexus: Normal appearance Cerebellum: Normal appearance Posterior Fossa: Normal appearance Thoracic: Normal appearance Heart: Normal appearance RVOT: Normal appearance LVOT: Normal appearance Diaphragm: Normal appearance Stomach: Normal appearance Abdomen: Normal appearance Abdominal Wall: Normal appearance Cord Vessels: 3-Vessel Cord Kidneys: Normal appearance Bladder: Normal appearance Upper Extremities: Present Lower Extremities: Present ------- DOPPLER - VESSELS: Umbilical Artery S/D %tile RI %tile PI %tile PSV (cm/s) 3.23 76 0.69 78 1.16 88 59.49 ------- Maternal Medicine Report IMPRESSION: Cross live intrauterine at 31w 0d. Normal growth; EFW 1412 grams, which is at the 31% for this gestational age. The AC is at the 11th percentile today The amniotic fluid index is 12.7cm, which is within normal limits. [facility] 01/29 Normal UAD see IP plan Ultrasound is not diagnostic of chromosomal aneuploidy and does not detect all subtle defects. Normal ultrasound findings do not guarantee normal outcomes. ------- Natalie Haynes MD Electronically Signed Final Report 11/03/2021 02:31 pm ------- Final Dictated: 11/03/2021 10:00 am Dictating Physician: NATALIE DAVENPORT Signed Date and Time: 11/03/2021 2:32 pm Signed by: NATALIE DAVENPORT Ultrasound ACCESSION EXAM DATE/TIME PROCEDURE ORDERING PROVIDER [id number] 11/03/2021 10:01 EDT [facility] US After JENN FULLER 1st Trimester Reason For Exam ([facility] US After [facility]st Trimester) [facility], U[facility], BPP Report ------- OBSTETRICS REPORT (Signed Final 11/03/2021 02:31 pm) ------- PATIENT INFO: ID #: [id number] : [birth year] (20 yrs) Name: SAUD SIMPSON Visit Date: 11/03/2021 10:00 am (more content not included)... Normal [employer] [facility] US Umbilical Artery Echo on 11-03-2021 [facility] US Umbilical Artery Echo Patient Name: SAUD SIMPSON Maternal Medicine ACCESSION EXAM DATE/TIME PROCEDURE ORDERING PROVIDER [id number] 11/03/2021 10:01 EDT [facility] US After JENN FULLER 1st Trimester Reason For Exam ([facility] US After 1st Trimester) kaykay MARCOS, YOVANY, BPP Report ------- OBSTETRICS REPORT (Signed Final 11/03/2021 02:31 pm) ------- PATIENT INFO: ID #: [id number] : [birth year] (20 yrs) Name: SAUD SIMPSON Visit Date: 11/03/2021 10:00 am ------- PERFORMED BY: Attending: Natalie Haynes MD Performed By: Ernie Lozada Referred By: JENN FULLER Location: Inpatient- Hospital Visit Type: Inpatient - Hospital ------- SERVICE(S) PROVIDED: US >= 14 weeks 60045 BPP w/out NST 85311 US Doppler umbilical art 70524 ------- INDICATIONS: FGR ------- VITAL SIGNS: Weight (lb): 169 Height: 4'11 BMI: 34.13 ------- EVALUATION: Num Of Fetuses: 1 Heart Rate(bpm): 130 Cardiac Activity: Regular rhythm Lie: Longitudinal Presentation: Breech Placenta: Fundal Amniotic Fluid ALECIA FV: Within normal limits ALECIA Sum(cm) %Tile Largest Pocket(cm) Maternal Medicine Report 12.7 36 4 RUQ(cm) RLQ(cm) LUQ(cm) LLQ(cm) 2.4 3.3 3 4 ------- BIOPHYSICAL EVALUATION: Amniotic F.V: Within normal limits F. Tone: Observed F. Movement: Observed Score: 01/29 F. Breathing: Observed ------- BIOMETRY: BPD: 72.5 mm G.Age: 29w 1d 3 % OFD: 98.9 mm HC: 274.9 mm G.Age: 30w 0d 4 % AC: 253.5 mm G.Age: 29w 4d 11 % FL: 56.1 mm G.Age: 29w 4d 7 % LV: 3.78 mm CI: 73.3 % 70 - 86 FL/HC: 20.4 % 19.3 - 21.3 HC/AC: 1.08 0.96 - 1.17 FL/BPD: 77.4 % 71 - 87 FL/AC: 22.1 % 20 - 24 Est. FW: 1412 gm 3 lb 2 oz 31 % ------- GESTATIONAL AGE: Clinical OBDULIA: 31w 0d OBDULIA: 01/05/22 U/S Today: 29w 4d OBDULIA: 01/15/22 Best: 31w 0d Det. By: Clinical OBDULIA OBDULIA: 01/05/22 ------- ANATOMY: Cranium: Normal appearance Cavum: Normal appearance Ventricles: Normal appearance Choroid Plexus: Normal appearance Cerebellum: Normal appearance Posterior Fossa: Normal appearance Thoracic: Normal appearance Heart: Normal appearance RVOT: Normal appearance LVOT: Normal appearance Diaphragm: Normal appearance Stomach: Normal appearance Abdomen: Normal appearance Abdominal Wall: Normal appearance Cord Vessels: 3-Vessel Cord Kidneys: Normal appearance Bladder: Normal appearance Upper Extremities: Present Lower Extremities: Present ------- DOPPLER - VESSELS: Umbilical Artery S/D %tile RI %tile PI %tile PSV (cm/s) 3.23 76 0.69 78 1.16 88 59.49 ------- Maternal Medicine Report IMPRESSION: Cross live intrauterine at 31w 0d. Normal growth; EFW 1412 grams, which is at the 31% for this gestational age. The AC is at the 11th percentile today The amniotic fluid index is 12.7cm, which is within normal limits. BPP 01/29 Normal UAD see IP plan Ultrasound is not diagnostic of chromosomal aneuploidy and does not detect all subtle defects. Normal ultrasound findings do not guarantee normal outcomes. ------- Natalie Haynes MD Electronically Signed Final Report 11/03/2021 02:31 pm ------- Final Dictated: 11/03/2021 10:00 am Dictating Physician: NATALIE DAVENPORT Signed Date and Time: 11/03/2021 2:32 pm Signed by: NATALIE DAVENPORT Ultrasound ACCESSION EXAM DATE/TIME PROCEDURE ORDERING PROVIDER [id number] 11/03/2021 10:01 EDT [facility] US After JENN FULLER 1st Trimester Reason For Exam ([facility] US After 1st Trimester) YOVANY Miller BPP Report ------- OBSTETRICS REPORT (Signed Final 11/03/2021 02:31 pm) ------- PATIENT INFO: ID #: [id number] : [birth year] (20 yrs) Name: SAUD SIMPSON Visit Date: 11/03/2021 10:00 am (more content not included)... Normal [facility] TS GELon 11-03-2021 TS GEL ABO Group: O Rh, Gel: NEG Antibody Screen Gel: POS Normal [facility] Comment on above: Performed By: #### T SGL, ABID #### [facility] ANTIBODY IDENTIFICATIONon Antibody ID POS, ANTI D FROM [facility] Comment on above: at [place] OB. BMS Antibody Identificationon Antibody Identification Antibody Identification: POS, ANTI D FROM [facility] [place]. [facility] [place] [facility] Comment on above: Performed By: #### T SGL, ABID #### [facility] CBCon 11-02-2021 Hematocrit (Bld) [Volume fraction] 33.6 % Low 35.0 - 47.0 % [facility] Hemoglobin.gastroint estinal spec 1 Ql (Stl) 11.6 g/dL Low 11.7 - 16.0 g/dL [facility] Interpretation and review of laboratory results Abnormal [facility] MCH (RBC) [Entitic mass] 31.0 pg 26.0 - 34.0 pg [facility] MCHC (RBC) [Mass/Vol] 34.6 % 32.0 - 36.0 % [facility] MCV (RBC) [Entitic vol] 89.5 fL 79.0 - 98.0 fL [facility] Platelet distribution width (Bld) [Ratio] 13.6 % 11.5 - 14.5 % [facility] Platelet mean volume (Bld) [Entitic vol] 7.3 fL Low 7.4 - 12.4 fL [facility] Comment on above: MPV is a calculated measurement using platelet volume ratio. Platelets (Bld) [#/Vol] 186 10*3/uL 140 - 440 10*3/uL [facility] RBC (Bld) [#/Vol] 3.75 10*6/uL Low 3.80 - 5.2 0 10*6/uL [facility] WBC (Bld) [#/Vol] 4.4 10*3/uL 3.6 - 10.7 10*3/uL [facility] Test Performed by [facility], [address], [place] [address] [facility] Comp Metabolic Panelon 11-02 ALT [Catalytic activity/Vol] 25 U/L Normal 0-34 [facility] Comment on above: Result Comment: The ALT test is performed by an updated assay method. Please note that the reference intervals have been changed and are now sex specific. Performed By: #### C MP3 #### [facility] [facility] [address] [facility] [place] Calcium [Mass/Vol] 9.2 mg/dL Normal 8.4-10.4 [facility] Comment on above: Performed By: #### C MP3 #### [place] [address] [address] [facility] [place] Glucose [Mass/Vol] 75 mg/dL Normal 70-100 [facility] Comment on above: Performed By: #### C MP3 #### [place] [address] [address] [facility] [place] ALP [Catalytic activity/Vol] 72 U/L Normal 38-126 [facility] Comment on above: Performed By: #### C MP3 #### [facility] [address] [facility] [place] Anion gap [Moles/Vol] 9 mmol/L Normal 3-13 [facility] Comment on above: Performed By: #### C MP3 #### [place] [address] [address] [facility] [place] AST [Catalytic activity/Vol] 42 U/L Normal 15-46 [facility] Comment on above: Performed By: #### C MP3 #### [facility] [address] [facility] [place] Bilirubin [Mass/Vol] 0.5 mg/dL Normal 0.2-1.3 [facility] Comment on above: Performed By: #### C MP3 #### [place] [address] [address] [facility] [place] CO2 [Moles/Vol] 19 mmol/L Low 22-30 [facility] Comment on above: Performed By: #### C MP3 #### [facility] [address], [place] Creatinine [Mass/Vol] 0.51 mg/dL Low 0.52-1.25 [facility] Comment on above: Performed By: #### C MP3 #### [place] [address] [address] [place] eGFR OTHER > 90.0 Normal >60 [facility] Comment on above: Result Comment: KDIG O guidelines provide the following GFR categories: Stage GFR(ml/min/1.73 m2) Terms G1 >=90 Normal or high G2 60-89 Mildly decreased* G3a 45-59 Mildly to moderately decreased G3b 30-44 Moderately to severely decreased G4 15-29 Severely decreased G5 <15 Kidney failure *Relative to young adult level. In the absence of evidence of kidney damage, neither GFR category G1 nor G2 fulfill the criteria for CKD. The CKD-EPI equation is validated in individuals 18 years of age and older. Currently the best equation for estimating glomerular filtration rate (GFR) from serum creatinine in children is the Bedside Quezada equation. It is less accurate in patients with extremes of muscle mass, restriction of dietary protein, ingestion of creatine, extra-renal metabolism of creatinine, or treatment with medications that affect renal tubular creatinine secretion. Performed By: #### C MP3 #### [place] [address] [place] GFR/1.73 sq M.predicted among blacks MDRD (S/P/Bld) [Vol rate/Area] mL/min/{1.73_m2} Normal >60 [facility] Comment on above: Performed By: #### C MP3 #### [place] [address] [address] [place] Protein [Mass/Vol] 7.0 g/dL Normal 6.3-8.2 [facility] Comment on above: Performed By: #### C MP3 #### [address] Urea nitrogen [Mass/Vol] 6 mg/dL Low 9-20 [facility] Comment on above: Performed By: #### C MP3 #### [address] Potassium [Moles/Vol] 3.7 mmol/L Normal 3.5-5.1 [facility] Comment on above: Performed By: #### C MP3 #### [facility] [address] [place], [place] Albumin [Mass/Vol] 3.6 g/dL Normal 3.5-5.0 [facility] Comment on above: Performed By: #### C MP3 #### [facility] [address] [place] Chloride [Moles/Vol] 107 mmol/L Normal 98-107 [facility] Comment on above: Performed By: #### C MP3 #### [address] Sodium [Moles/Vol] 136 mmol/L Normal 135-145 [facility] Comment on above: Performed By: #### C MP3 #### [address] Comprehensive Metabolic Pane casper 11-02-2021 Albumin [Mass/Vol] 3.6 g/dL 3.5 - 5.0 g/dL [facility] ALP (Bld) [Catalytic activity/Vol] 72 U/L 38 - 126 U/L [facility] ALT [Catalytic activity/Vol] 25 U/L 0 - 34 U/L [facility] Comment on above: The ALT test is perf ormed by an updated assay method. Please note that the reference intervals have been changed and are now sex specific. Anion gap [Moles/Vol] 9 mmol/L 3 - 13 mmol/L [facility] AST [Catalytic activity/Vol] 42 U/L 15 - 46 U/L [facility] Bilirubin [Mass/Vol] 0.5 mg/dL 0.2 - 1.3 mg/dL [facility] Calcium [Mass/Vol] 9.2 mg/dL 8.4 - 10.4 mg/dL [facility] Chloride [Moles/Vol] 107 mmol/L 98 - 107 mmol/L [facility] CO2 [Moles/Vol] 19 mmol/L Low 22 - 30 mmol/L [facility] Creatinine [Mass/Vol] 0.51 mg/dL Low 0.52 - 1.25 mg/dL [facility] EGFR IF NonAfrican Japanese >90.0 >60 mL/min [facility] Comment on above: KDIGO guidelines pro vide the following GFR categories: Stage GFR(ml/min/1.73 m2) Terms G1 >=90 Normal or high G2 60-89 Mildly decreased* G3a 45-59 Mildly to moderately decreased G3b 30-44 Moderately to severely decreased G4 15-29 Severely decreased G5 <15 Kidney failure *Relative to young adult level. In the absence of evidence of kidney damage, neither GFR category G1 nor G2 fulfill the criteria for CKD. The CKD-EPI equation is validated in individuals 18 years of age and older. Currently the best equation for estimating glomerular filtration rate (GFR) from serum creatinine in children is the Bedside Quezada equation. It is less accurate in patients with extremes of muscle mass, restriction of dietary protein, ingestion of creatine, extra-renal metabolism of creatinine, or treatment with medications that affect renal tubular creatinine secretion. Free PSA/Total PSA [Mass fraction] 7.0 g/dL 6.3 - 8.2 g/dL [facility] GFR/1.73 sq M.predicted among blacks MDRD (S/P/Bld) [Vol rate/Area] mL/min/{1.73_m2} >60 mL/min [facility] Glucose [Mass/Vol] 75 mg/dL 70 - 100 mg/dL [facility] Interpretation and review of laboratory results Abnormal [facility] Potassium [Moles/Vol] 3.7 mmol/L 3.5 - 5.1 mmol/L [facility] Sodium [Moles/Vol] 136 mmol/L 135 - 145 mmol/L [facility] Urea nitrogen (BldV) [Mass/Vol] 6 mg/dL Low 9 - 20 mg/dL [facility] Test Performed by [facility] [employer] [address] [facility] Hem[facility] 11-02-2021 Erythrocyte distribution width (RBC) [Ratio] 13.6 % Normal 11.5-14.5 [facility] Comment on above: Performed By: #### H EMOG #### [address] [address] Hematocrit (Bld) [Volume fraction] 33.6 % Low 35.0-47.0 [facility] Comment on above: Performed By: #### H EMOG #### [facility] [address] [place] [address] Hemoglobin (Bld) [Mass/Vol] 11.6 g/dL Low 11.7-16.0 [facility] Comment on above: Performed By: #### H EMOG #### [facility] [address] [place] [address] MCH (RBC) [Entitic mass] 31.0 pg Normal 26.0-34.0 [facility] Comment on above: Performed By: #### H EMOG #### [place] [address] [address] [place] MCHC 34.6 % Normal 32.0-36.0 [facility] Comment on above: Performed By: #### H EMOG #### [place] [address] [address] [place] MCV (RBC) [Entitic vol] 89.5 fL Normal 79.0-98.0 [facility] Comment on above: Performed By: #### H EMOG #### [place] [address] [address] [place] Platelet mean volume (Bld) [Entitic vol] 7.3 fL Low 7.4-12.4 [facility] Comment on above: Result Comment: MPV is a calculated measurement using platelet volume ratio. Performed By: #### H EMOG #### [place] [address] [address] [place] Platelets (Bld) [#/Vol] 186 10*3/uL Normal 140-440 [facility] Comment on above: Performed By: #### H EMOG #### [place] [address] [address] [place] RBC (Bld) [#/Vol] 3.75 10*6/uL Low 3.80-5.20 [facility] Comment on above: Performed By: #### H EMOG #### [place] [address] [address] [place] WBC (Bld) [#/Vol] 4.4 10*3/uL Normal 3.6-10.7 [facility] Comment on above: Performed By: #### H EMOG #### [employer] [address] [address] No Panel Informationon 11-02 Test Performed by [employer], [address] [place] [id number] [facility] TYPE AND SCREENon 11-02-2021 [employer] O [facility] Rh Type Negative [facility] Progress Noteon 10-24-2021 [employer] Authentication Interface Message Text Reason for Consult/Chief Concern: Suspected hypochondroplasia Primary Care Doctor: Zeny Garcia MD Interim History: No major changes to her health history. She returns today for results. Of note, her child is due 01/05 but will likely come at the beginning of December. History of Present Illness (Location, Quality, Severity, Duration, Timing, Context. 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 Of note, she is currently . Saud is 4'11. was complicated by late to care. She was 4lbs 5oz at . Arm and leg length discrepancy noted at , and she was diagnosed with hypochondroplasia. She does not know if genetic testing was ordered. She also has chronic pain of her knees, back, and shoulders. She required an IEP in high school for math. Past Medical History: Per HPI Social History: Lifestyle/Psychosocia l Mother's occupation Father's occupation Are mother and father living together? Mother's highest level of education Father's highest level of education Are the parents of the patient related? Nutritional concerns Patient's education level Special education/IEP Family History: 3 generation pedigree obtained and will be scanned into the chart Review of Systems Constitutional: Negative Vision: Negative ENT: Negative Head and Neck: Negative Endocrine: Negative Hematology/Lymphatic: Negative Respiratory: Negative Cardiovascular: Negative Gastrointestinal: Negative : Negative Skin: Negative Musculoskeletal: Per HPI Neuro: Negative Psychiatric: Negative Allergy/Immun: Negative Physical Examination Vitals: LMP 03/31/2021 General: Awake, alert, no apparent distress, short stature Head: Normocephalic, hair with normal texture and distribution Face: Normal forehead, unslanted palpebral fissures, ears normally set and rotated, nose with normal root, bridge, and columella Lungs: no increased work of breathing Heart: Appears well perfused Skin: No abnormal lesions or pigmentation Impression: Saud Simpson is a 20 y.o. 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 Gene panel with many variants of uncertain significance noted. All of these are in autosomal recessive conditions with no second variant found. At this point, there is nothing on this test that would point toward a diagnosis. She may be mutation-negative hypochondroplasia, or it may be a rare skeletal dysplasia not covered by this panel. At this point, I would like to follow her up later this year after her child is born to examine both. At that point, we will likely obtain X-rays to see if there are any additional clues to diagnosis. Recommendations and Plan: 1.) Follow-up March 27, 2022 with child 20 minutes spent in preparation, during the encounter, and on documentation on day of visit Tony Edwards MD Clinical Assistant Manager Pt [facility] Office: [phone] Normal [facility] Progress Noteon 09-05-2021 [employer] Wel[employer] Operator Authentication Interface Message Text Reason for Consult/Chief Concern: Suspected hypochondroplasia Primary Care Doctor: Zeny Garcia MD History of Present Illness (Location, Quality, Severity, Duration, Timing, Context. 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 Of note, she is currently . She [place] my [place] [facility]. Saud is 4'11. was complicated by late to care. She was 4lbs 5oz at . Arm and leg length discrepancy noted at , and she was diagnosed with hypochondroplasia. She does not know if genetic testing was ordered. She also has chronic pain of her knees, back, and shoulders. She required an IEP in high school for math. Past Medical History: Per HPI Social History: Lifestyle/Psychosocia l Mother's occupation Father's occupation Are mother and father living together? Mother's highest level of education Father's highest level of education Are the parents of the patient related? Nutritional concerns Patient's education level Special education/IEP Family History: 3 generation pedigree obtained and will be scanned into the chart Review of Systems Constitutional: Negative Vision: Negative ENT: Negative Head and Neck: Negative Endocrine: Negative Hematology/Lymphatic: Negative Respiratory: Negative Cardiovascular: Negative Gastrointestinal: Negative : Negative Skin: Negative Musculoskeletal: Per HPI Neuro: Negative Psychiatric: Negative Allergy/Immun: Negative Physical Examination Vitals: Ht (!) 149.9 cm Wt 78.7 kg LMP 03/31/2021 BMI 35.02 kg/m General: Awake, alert, no apparent distress, short stature Head: Normocephalic, hair with normal texture and distribution Face: Normal forehead, unslanted palpebral fissures, ears normally set and rotated, nose with normal root, bridge, and columella, normal dentition for age, palate intact, clear oropharynx Neck: No masses Chest: No deformities Lungs: no increased work of breathing, lungs clear to auscultation bilaterally Heart: Regular rate and rhythm, no murmurs Abdomen: Soft, nontender, nondistended, normal bowel sounds, no masses, no hepatosplenomegaly, no hernia Extremities: Slight rhizomelic shortening, symmetrical, no deformities, normal creasing patterns, normal nails, normal strength Neuro: Cranial nerves grossly intact, normal tone and bulk, intact to sensation, normal gait, 2+ DTRs Skin: No abnormal lesions or pigmentation Impression: Saud Simpson is a 20 y.o. 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 Will obtain gene panel targeted toward various skeletal dysplasias. Knowing her diagnosis may impact her management (especially in regards to ), reveal recurrence risks, guide testing and medical management of her child. 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 Full report available in the Imaging tab in Epic. Marc Alejandro MD Normal [facility] Vital Signs Date Time Vital Sign Value Performing Clinician Faci lity 11-25-2023 10:25-0400 Body mass index (BMI) [Ratio] 35.95 kg/m2 Wolfgang Nguyen MD Work Phone: [facility] 11-25-2023 10:25-0400 Body weight 80.74 kg Wolfgang Nguyen MD Work Phone: [facility] 11-25-2023 10:25-0400 Diastolic blood pressure 60 mm[Hg] Wolfgang Nguyen MD Work Phone: [facility] 11-25-2023 10:25-0400 Systolic blood pressure 110 mm[Hg] Wolfgang Nguyen MD Work Phone: [facility] 07-29-2023 16:09-0500 Body weight 79.83 kg Lise Concepcion MD Work Phone: [facility] 07-29-2023 16:09-0500 Diastolic blood pressure 60 mm[Hg] Lise Concepcion MD Work Phone: [facility] 07-29-2023 16:09-0500 Systolic blood pressure 104 mm[Hg] Lise Concepcion MD Work Phone: [facility] 06-03-2023 17:14-0500 Body temperature 98.6 [degF] Alan Vargas MD Work Phone: [facility] 06-03-2023 17:14-0500 Body weight 73.94 kg Alan Vargas MD Work Phone: [facility] 06-03-2023 17:14-0500 Diastolic blood pressure 66 mm[Hg] Alan Vargas MD Work Phone: [facility] 06-03-2023 17:14-0500 Heart rate 100 /min Alan Vargas MD Work Phone: [facility] 06-03-2023 17:14-0500 Respiratory rate 16 /min Alan Vargas MD Work Phone: [facility] 06-03-2023 17:14-0500 SaO2% (BldA) [Mass fraction] 99 % Alan Vargas MD Work Phone: [facility] 06-03-2023 17:14-0500 Systolic blood pressure 108 mm[Hg] Alan Vargsa MD Work Phone: [facility] 05-09-2023 10:47-0500 Body weight 71.22 kg Lise Concepcion MD Work Phone: [facility] 05-09-2023 10:47-0500 Diastolic blood pressure 60 mm[Hg] Lise Concepcion MD Work Phone: [facility] 05-09-2023 10:47-0500 Systolic blood pressure 100 mm[Hg] Lise Concepcion MD Work Phone: [facility] 04-22-2023 10:47-0400 Body weight 79.29 kg Lise Concepcion MD Work Phone: [facility] 04-22-2023 10:47-0400 Diastolic blood pressure 60 mm[Hg] Lise Concepcion MD Work Phone: [facility] 04-22-2023 10:47-0400 Systolic blood pressure 100 mm[Hg] Lise Concepcion MD Work Phone: [facility] 04-19-2023 09:48-0400 Body weight 78.93 kg Carole Quintero MD Work Phone: [facility] 04-19-2023 09:48-0400 Diastolic blood pressure 60 mm[Hg] Carole Quintero MD Work Phone: [facility] 04-19-2023 09:48-0400 Systolic blood pressure 102 mm[Hg] Carole Quintero MD Work Phone: [facility] 04-12-2023 08:59-0400 Body weight 78.11 kg Sherin Decker CUSTOMS CONSULTANT.CNM Work Phone: [facility] 04-12-2023 08:59-0400 Diastolic blood pressure 62 mm[Hg] Sherin Decker CUSTOMS CONSULTANT.CNM Work Phone: [facility] 04-12-2023 08:59-0400 Systolic blood pressure 96 mm[Hg] Sherin Decker CUSTOMS CONSULTANT.CNM Work Phone: [facility] 03-14-2023 13:27-0400 Body weight 78.02 kg Carole Quintero MD Work Phone: [facility] 03-14-2023 13:27-0400 Diastolic blood pressure 64 mm[Hg] Carole Quintero MD Work Phone: [facility] 03-14-2023 13:27-0400 Systolic blood pressure 112 mm[Hg] Carole Quintero MD Work Phone: [facility] 02-05-2023 08:31-0400 Body weight 76.66 kg Carole Quintero MD Work Phone: [facility] 02-05-2023 08:31-0400 Diastolic blood pressure 62 mm[Hg] Carole Quintero MD Work Phone: [facility] 02-05-2023 08:31-0400 Systolic blood pressure 100 mm[Hg] Carole Quintero MD Work Phone: [facility] 01-24-2023 14:20-0400 Body weight 75.84 kg Lise Concepcion MD Work Phone: [facility] 01-24-2023 14:20-0400 Diastolic blood pressure 60 mm[Hg] Lise Concepcion MD Work Phone: [facility] 01-24-2023 14:20-0400 Systolic blood pressure 102 mm[Hg] Lise Concepcion MD Work Phone: [facility] 01-08-2023 09:08-0400 Body weight 76.02 kg Belinda Arnold CUSTOMS CONSULTANT.PROJECT CONTROL OFFICER Work Phone: [facility] 01-08-2023 09:08-0400 Diastolic blood pressure 60 mm[Hg] Belinda Timberon CUSTOMS CONSULTANT.PROJECT CONTROL OFFICER Work Phone: [facility] 01-08-2023 09:08-0400 Systolic blood pressure 82 mm[Hg] Belinda Timberon CUSTOMS CONSULTANT.PROJECT CONTROL OFFICER Work Phone: [facility] 06-20-2023 09:41-0400 Body weight 76.2 kg Joan Skelton MD Work Phone: [facility] 12-11-2022 09:41-0400 Diastolic blood pressure 60 mm[Hg] Joan Skelton MD Work Phone: [facility] 12-11-2022 09:41-0400 Systolic blood pressure 90 mm[Hg] Joan Skelton MD Work Phone: [facility] 10-16-2022 10:27-0400 Body weight 71.22 kg Carole Quintero MD Work Phone: [facility] 10-16-2022 10:27-0400 Diastolic blood pressure 60 mm[Hg] Carole Quintero MD Work Phone: [facility] 10-16-2022 10:27-0400 Systolic blood pressure 98 mm[Hg] Carole Quintero MD Work Phone: [facility] 10-16-2022 09:51-0400 Body weight 71.4 kg Luís Bland MD Work Phone: [facility] 10-16-2022 09:51-0400 Diastolic blood pressure 60 mm[Hg] Luís Bland MD Work Phone: [facility] 10-16-2022 09:51-0400 Systolic blood pressure 98 mm[Hg] Luís Bland MD Work Phone: [facility] 09-12-2022 08:48-0400 Body weight 77.56 kg Sherin Decker CUSTOMS CONSULTANT.CNM Work Phone: [facility] 09-12-2022 08:48-0400 Diastolic blood pressure 62 mm[Hg] Sherin Plotts CUSTOMS CONSULTANT.CNM Work Phone: [facility] 09-12-2022 08:48-0400 Systolic blood pressure 104 mm[Hg] Sherin Plotts CUSTOMS CONSULTANT.CNM Work Phone: [facility] 07-20-2022 17:26-0500 Body temperature 99.7 [degF] Elisha Athy PA-C Work Phone: [facility] 07-20-2022 17:26-0500 Body weight 76.11 kg Elisha Athy PA-C Work Phone: [facility] 07-20-2022 17:26-0500 Diastolic blood pressure 82 mm[Hg] Elisha Athy PA-C Work Phone: [facility] 07-20-2022 17:26-0500 Heart rate 116 /min Elisha Athy PA-C Work Phone: [facility] 07-20-2022 17:26-0500 Respiratory rate 18 /min Elisha Athy PA-C Work Phone: [facility] 07-20-2022 17:26-0500 SaO2% (BldA) [Mass fraction] 100 % Elisha Athy PA-C Work Phone: [facility] 07-20-2022 17:26-0500 Systolic blood pressure 130 mm[Hg] Elisha Athy PA-C Work Phone: [facility] 11-03-2021 06:30-0400 Heart rate 95 /min Olivia Ulloa DO Work Phone: [facility] 11-02-2021 22:10-0400 SaO2% (BldA) [Mass fraction] 98 % Olivia Ulloa DO Work Phone: [facility] 11-02-2021 20:54-0400 Body temperature 98.4 [degF] Olivia Polancoe DO Work Phone: [facility] 11-02-2021 20:32-0400 Diastolic blood pressure 61 mm[Hg] Olivia Ulloa DO Work Phone: [facility] 11-02-2021 20:32-0400 Systolic blood pressure 101 mm[Hg] Olivia Ulloa DO Work Phone: [facility] 11-02-2021 18:46-0400 Body height 149.9 cm Olivia Polancoe DO Work Phone: [facility] 11-02-2021 18:46-0400 Body mass index (BMI) [Ratio] 34.13 kg/m2 Olivia Ulloa DO Work Phone: [facility] 11-02-2021 18:46-0400 Body weight 76.66 kg Olivia Ulloa DO Work Phone: [facility] 11-02-2021 18:46-0400 Respiratory rate 20 /min Olivia Ulloa DO Work Phone: [facility] Encounters Encounter Date Encounter Type Care Provider Facility Start: 03-05-2025 End: 03-05-2025 Emergency department patient visit Harini Wesley Facility:[facility] Start: 07-27-2024 End: 07-27-2024 Emergency department patient visit Jose D Etelvina Facility:[facility] Start: 06-24-2024 End: 06-24-2024 Emergency department patient visit Luís Mason Facility:[facility] Start: 03-26-2024 End: 03-27-2024 Telephone encounter Lise Concepcion MD Work Phone: OB/Gynecology Comment on above: Missed Menses Start: 11-25-2023 End: 11-25-2023 ambulatory WOLFGANG NGUYEN Facility:[facility] Start: 11-25-2023 End: 11-25-2023 Patient encounter procedure Wolfgang Nguyen MD Work Phone: OB/Gynecology Comment on above: Screen for STD (sexu ally transmitted disease) (Primary Dx); Exposure to sexually transmitted disease (STD) Start: 07-29-2023 End: 07-29-2023 ambulatory LISE CONCEPCION Facility:[facility] Start: 07-29-2023 End: 07-29-2023 Patient encounter procedure Lise Concepcion MD Work Phone: OB/Gynecology Comment on above: depressio n (Primary Dx); Menorrhagia with regular cycle; care and examination; Encounter for initial prescription of contraceptive pills Start: 06-12-2023 End: 06-12-2023 ambulatory CONSTANCE MONCADA [facility] [facility] Start: 06-10-2023 End: 06-10-2023 ambulatory LISE CONCEPCION Facility:[facility] Start: 06-03-2023 End: 06-03-2023 ambulatory LISE CONCEPCION Facility:[facility] Start: 06-03-2023 End: 06-03-2023 Patient encounter procedure Alan Vargas MD [facility] Comment on above: Intertrigo (Primary Dx) Start: 05-26-2023 ambulatory Lise Harper Work Phone: OB/Gynecology Comment on above: Start: 05-09-2023 End: 05-09-2023 ambulatory LISE KARSON Facility:[facility] Start: 05-09-2023 End: 05-09-2023 Patient encounter procedure Lise Concepcion MD Work Phone: OB/Gynecology Comment on above: Constipation, unspec ified constipation type (Primary Dx); state; Lightheadedness; Dizziness; Vaginal bleeding Start: 05-07-2023 Telephone encounter Constance jaquez APRN.CNM Work Phone: OB/Gynecology Comment on above: Bleeding Start: 05-06-2023 End: 05-06-2023 ambulatory LISE CONCEPCION Facility:[facility] Start: 05-01-2023 Telephone encounter Sherin miller APRN.CNM Work Phone: OB/Gynecology Start: 04-22-2023 End: 04-22-2023 ambulatory [facility] Start: 04-22-2023 End: 04-22-2023 Patient encounter procedure Lise Concepcion MD Work Phone: OB/Gynecology Comment on above: 38 weeks gestation o f (Primary Dx); Supervision of other high risk pregnancies, third trimester; Breech presentation, single or unspecified fetus; History of section; Obesity in ; Request for sterilization Start: 04-19-2023 End: 04-19-2023 Patient encounter procedure Carole Quintero MD Work Phone: OB/Gynecology Comment on above: Supervision of other high risk pregnancies, third trimester (Primary Dx); 38 weeks gestation of Start: 04-19-2023 End: 04-19-2023 ambulatory CAROLE QUINTERO Facility:[facility] Start: 04-12-2023 End: 04-12-2023 ambulatory SHERIN DECKER Facility:[facility] Start: 04-12-2023 End: 04-12-2023 Patient encounter procedure Literacy Consultant [facility] Work Phone: OB/Gynecology Comment on above: Encounter for ultras ound to check growth (Primary Dx); Supervision of other high risk pregnancies, third trimester; Hypochondroplasia syndrome; 37 weeks gestation of with histo ry of section, antepartum (Primary Dx); 37 weeks gestation of Start: 04-05-2023 End: 04-05-2023 ambulatory LISE CONCEPCION Facility:[facility] Start: 03-14-2023 End: 03-14-2023 Patient encounter procedure Carole Quintero MD Work Phone: OB/Gynecology Comment on above: Diet controlled gest ational diabetes mellitus (GDM) in third trimester (Primary Dx); 32 weeks gestation of ; PREV DELIVERY [654.23]; Supervision of other high risk pregnancies, third trimester; Need for influenza vaccination Start: 03-12-2023 Telephone encounter Lise fowler MD Work Phone: OB/Gynecology Comment on above: Breast Pump Start: 03-07-2023 Telephone encounter Sherin miller CUSTOMS CONSULTANT.CNM Work Phone: OB/Gynecology Comment on above: Orders Care Start: 03-05-2023 End: 03-05-2023 ambulatory Keyon Glover MD Work Phone: Pediatric Cardiology Start: 03-05-2023 End: 03-05-2023 Patient encounter procedure Keyon Glover MD Work Phone: [facility] Start: 02-26-2023 Telephone encounter Mitra Jacobson RN [facility] Maternal Medicine Comment on above: Appointment Start: 02-05-2023 End: 02-05-2023 Patient encounter procedure Carole Quintero MD Work Phone: OB/Gynecology Comment on above: PREV DELIVE RY [654.23] (Primary Dx); 27 weeks gestation of Start: 01-28-2023 End: 01-28-2023 ambulatory Rupinder Juarez MD Work Phone: Pediatric Cardiology Start: 01-28-2023 End: 01-28-2023 Patient encounter procedure Rupinder Juarez MD Work Phone: [facility] Start: 01-24-2023 End: 01-24-2023 Patient encounter procedure Lise Concepcion MD Work Phone: OB/Gynecology Comment on above: with histo ry of section, antepartum (Primary Dx); Short interval between pregnancies affecting , antepartum; 25 weeks gestation of ; headache in second trimester Start: 01-24-2023 Telephone encounter Lise fowler MD Work Phone: OB/Gynecology Comment on above: OB [facility]ULT[facility] Start: 01-08-2023 End: 01-08-2023 Patient encounter procedure Belinda Barrett APRN.CNP Work Phone: OB/Gynecology Comment on above: 23 weeks gestation o f (Primary Dx); with history of section, antepartum; Rh negative state in antepartum period Start: 01-01-2023 End: 01-01-2023 Patient encounter procedure Joan Skelton MD Work Phone: Maternal Medicine Comment on above: Encounter for follow -up ultrasound of anatomy (Primary Dx); 22 weeks gestation of ; Other obesity due to excess calories affecting in second trimester Start: 12-11-2022 End: 12-11-2022 Patient encounter procedure Joan Skelton MD Work Phone: Maternal Medicine Comment on above: Encounter for anatomic survey (Primary Dx); Obesity complicating , second trimester; 19 weeks gestation of Short interval betwe en pregnancies affecting , antepartum (Primary Dx); with history of section, antepartum; Hypochondroplasia syndrome; 19 weeks gestation of Start: 10-22-2022 Telephone encounter Luís stephen MD Work Phone: Maternal Medicine Comment on above: NIPT Start: 10-18-2022 Telephone encounter Brent shaw MD Work Phone: OB/Gynecology Comment on above: Patient Question Start: 10-16-2022 End: 10-16-2022 Patient encounter procedure Carole Quintero MD Work Phone: OB/Gynecology Comment on above: Maternal care due to low transverse uterine scar from previous delivery (Primary Dx); with history of section, antepartum; Hypochondroplasia syndrome; 11 weeks gestation of Encounter for (NT) n uchal translucency scan (Primary Dx); Encounter for supervision of normal in multigravida; 6 weeks gestation of ; Hypochondroplasia syndrome; Maternal care due to low transverse uterine scar from previous delivery; Encounter for screening for nuchal translucency Start: 09-13-2022 Telephone encounter Sherin miller APRN.CNM Work Phone: Obstetrics/Gynecology Comment on above: Forms (praf) Start: 09-12-2022 End: 09-12-2022 Patient encounter procedure Sherin Decker APRN.CNM Work Phone: OB/Gynecology Comment on above: Encounter for superv ision of normal in multigravida (Primary Dx); 6 weeks gestation of ; Hypochondroplasia syndrome; Maternal care due to low transverse uterine scar from previous delivery; with history of section, antepartum; Hypochondroplasia; Nausea and vomiting in ; Asthma, unspecified asthma severity, unspecified whether complicated, unspecified whether persistent; Short stature; History of prior with IUGR ; History of uterine anomaly; Family history of defects Start: 09-06-2022 End: 09-06-2022 Nursing evaluation of patient and report Nurse Pnob [facility] Work Phone: OB/Gynecology Comment on above: Supervision of high risk , antepartum (Primary Dx); Previous recurrent miscarriages affecting , antepartum; Short interval between pregnancies affecting , antepartum; with history of section, antepartum; Short stature; Hypochondroplasia; History of prior with IUGR ; History of uterine anomaly; Nausea and vomiting in ; History of depression; Family history of defects Start: 08-28-2022 Telephone encounter Sherin miller APRN.CNM Work Phone: OB/Gynecology Comment on above: Early OB spotting Start: 08-23-2022 Telephone encounter Dining Car Steward RN Maternal Medicine Comment on above: Dining Car Steward - O ther (OB [facility] pool) Start: 07-20-2022 End: 07-20-2022 Patient encounter procedure Elisha Arteaga PA-C Work Phone: [facility] Comment on above: Viral URI with cough (Primary Dx) Start: 11-02-2021 End: 11-03-2021 Evaluation and management of inpatient Olivia Ulloa DO Work Phone: [facility] Start: 10-19-2018 End: 10-19-2018 Emergency department patient visit Sivan Ruiz RamilaivaAilyn Facility:B Procedures Date Procedure Procedure Detail Performing Clinician Start: 11-25-2023 Iadna chlamydia trachomatis amplified probe tq Wolfgang Nguyen MD Work Phone: Start: 06-03-2023 Cul bact xcpt urine blood/stool aerobic isol Alan Vargas MD Work Phone: Start: 04-22-2023 URINE OB DIP B/O Lise Concepcion MD Work Phone: Start: 04-19-2023 URINE OB DIP B/O Carole Quintero MD Work Phone: Start: 04-12-2023 URINE OB DIP B/O Sherin Decker CUSTOMS CONSULTANT .CNM Work Phone: Start: 04-12-2023 Us preg uterus after 1st trimest 06/24 gestation Lise Concepcion MD Work Phone: Start: 03-14-2023 INFLUENZA VACCINE, AGE 6 MO - 64 YR, QUADRIVALENT (AFLURIA, FLULAVAL, FLUZONE) Carole Quintero MD Work Phone: Start: 03-14-2023 URINE OB DIP B/O Carole Quintero MD Work Phone: Start: 02-05-2023 URINE OB DIP B/O Carole Quintero MD Work Phone: Start: 01-24-2023 URINE OB DIP B/O Lise Concepcion MD Work Phone: Start: 01-08-2023 URINE OB DIP B/O Brent Pathak MD Work Phone: Start: 01-01-2023 Us preg uterus after 1st trimest 06/24 gestation Constance Suarez CUSTOMS CONSULTANT.CNM Work Phone: Start: 12-11-2022 Us preg uterus after 1st trimest 06/24 gestation Sherin Decker CUSTOMS CONSULTANT.CNM Work Phone: Start: 10-16-2022 URINE OB DIP B/O Carole Quintero MD Work Phone: Start: 10-16-2022 Us nuchal translucency 1st gestation Sherin Decker CUSTOMS CONSULTANT.CNM Work Phone: Start: 11-02-2021 Antibody screen Olivia Ulloa DO Work Phone: Start: 11-02-2021 Blood typing serologic abo Jenn Fuller DO Work Phone: Start: 11-02-2021 Comprehensive metabolic panel Frandy Buchanan MD Work Phone: H/O: section PREV NADINE IFTIKHAR DELIVERY [654.23] Carole Quintero MD Work Phone: H/O: section PREV NADINE IFTIKHAR DELIVERY [654.23] Carole Quintero MD Work Phone: H/O: section History of section Lise Concepcion MD Work Phone: Plan of Treatment Date Care Activity Detail Author Start: 02-05-2033 Urine microalbumin profile [facility] Start: 03-21-2025 PAP TESTING PAP TESTING [facility] Start: 03-21-2025 Screening for malign ant neoplasm of cervix [facility] Start: 02-23-2024 Covid-19 Vaccine () Covid-19 Vaccine () [facility] Start: 02-23-2024 Influenza vaccination Influenza Vacc ine (#1) [facility] Start: 11-25-2023 End: 02-24-2024 Hepatitis B virus surface Ag [Presence] in Serum [facility] Comment on above: Expected: 11/25/2023 , Expires: 02/24/2024 Start: 11-25-2023 End: 02-24-2024 Hepatitis C virus Ab [Presence] in Serum [facility] Comment on above: Expected: 11/25/2023 , Expires: 02/24/2024 Start: 11-25-2023 End: 02-24-2024 HIV 1+2 Ab [Presence] in Serum or Plasma by Immunoassay [facility] Comment on above: Expected: 11/25/2023 , Expires: 02/24/2024 Start: 11-25-2023 End: 02-24-2024 SYPHILIS TOTAL W/REFLEX Work Phone: Comment on above: Expected: 11/25/2023 , Expires: 02/24/2024 Start: 09-13-2023 CHLAMYDIA SCREENING (18-24) CHLAMYDIA SCREENING (18-24) [facility] Start: 09-13-2023 GC (GONORRHEA) SCREENING (1824) GC (GONORRHEA) SCREENING (18-24) [facility] Start: 09-13-2023 Screening for Chlamy becka trachomatis Chlamydia Screening () [facility] Start: 06-24-2023 Behavioral Health Screening Behavioral Health Screening [facility] Start: 06-24-2023 Depression Assessment Depression Ass essment [facility] Start: 03-07-2023 End: 05-07-2023 GEST GLUC TL, 3-HR, 100 GM, FASTING GEST GLUC TL, 3-HR, 100 GM, FASTING Lab Routine Abnormal glucose Expected: 03/07/2023, Expires: 05/07/2023 Work Phone: Comment on above: Expected: 03/07/2023 , Expires: 05/07/2023 Start: 02-22-2023 Covid-19 Vaccine ( season) Covid-19 Vaccine () [facility] Start: 02-22-2023 Influenza vaccination [facility] Start: 02-05-2023 End: 04-07-2023 CBC W Auto Differential panel - Blood CBC + DIFF Lab Routine 27 weeks gestation of Expected: 02/05/2023, Expires: 04/07/2023 Work Phone: Comment on above: Expected: 02/05/2023 , Expires: 04/07/2023 Start: 02-05-2023 End: 04-07-2023 GEST GLUC SCREEN, 1-HR, 50 GM, NON-FASTING GEST GLUC SCREEN, 1-HR, 50 GM, NON-FASTING Lab Routine 27 weeks gestation of Expected: 02/05/2023, Expires: 04/07/2023 Work Phone: Comment on above: Expected: 02/05/2023 , Expires: 04/07/2023 Start: 02-05-2023 End: 04-07-2023 SYPHILIS TOTAL W/REFLEX SYPHILIS TOTAL W/REFLEX Lab Routine 27 weeks gestation of Expected: 02/05/2023, Expires: 04/07/2023 Work Phone: Comment on above: Expected: 02/05/2023 , Expires: 04/07/2023 Start: 02-05-2023 End: 04-07-2023 TYPE + SCREEN TYPE + SCREEN Blood Bank Routine 27 weeks gestation of Expected: 02/05/2023, Expires: 04/07/2023 Work Phone: Comment on above: Expected: 02/05/2023 , Expires: 04/07/2023 Start: 01-15-2023 End: 10-17-2023 ECHO ECHO Cardiology Routine Encounter for supervision of normal in multigravida 6 weeks gestation of 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 Encounter for (NT) nuchal translucency scan Encounter for screening for nuchal translucency Expected: 01/15/2023, Expires: 10/17/2023 Work Phone: Comment on above: Expected: 01/15/2023 , Expires: 10/17/2023 Start: 01-08-2023 End: 03-10-2023 CBC W Auto Differential panel - Blood CBC + DIFF Lab Routine 23 weeks gestation of Rh negative state in antepartum period Expected: 01/08/2023, Expires: 03/10/2023 Work Phone: Comment on above: Expected: 01/08/2023 , Expires: 03/10/2023 Start: 01-08-2023 End: 03-10-2023 GEST GLUC SCREEN, 1-HR, 50 GM, NON-FASTING GEST GLUC SCREEN, 1-HR, 50 GM, NON-FASTING Lab Routine 23 weeks gestation of Rh negative state in antepartum period Expected: 01/08/2023, Expires: 03/10/2023 Work Phone: Comment on above: Expected: 01/08/2023 , Expires: 03/10/2023 Start: 01-08-2023 End: 03-10-2023 SYPHILIS TOTAL W/REFLEX SYPHILIS TOTAL W/REFLEX Lab Routine 23 weeks gestation of Rh negative state in antepartum period Expected: 01/08/2023, Expires: 03/10/2023 Work Phone: Comment on above: Expected: 01/08/2023 , Expires: 03/10/2023 Start: 01-08-2023 End: 03-10-2023 TYPE + SCREEN TYPE + SCREEN Blood Bank Routine Rh negative state in antepartum period Expected: 01/08/2023, Expires: 03/10/2023 Work Phone: Comment on above: Expected: 01/08/2023 , Expires: 03/10/2023 Start: 10-16-2022 End: 12-16-2022 Chromosome 21 trisomy [Presence] in Blood or Tissue by Cytogenetics Work Phone: Comment on above: Expected: 10/16/2022 , Expires: 12/16/2022 Start: 09-12-2022 End: 11-12-2022 CBC panel - Blood by Automated count CBC Lab Routine Encounter for supervision of normal in multigravida 6 weeks gestation of Expected: 09/12/2022, Expires: 11/12/2022 Work Phone: Comment on above: Expected: 09/12/2022 , Expires: 11/12/2022 Start: 09-12-2022 End: 11-12-2022 HEMOGLOBIN EVALUATION CASCADE HEMOGLOBIN EVALUATION CASCADE Lab Routine Encounter for supervision of normal in multigravida 6 weeks gestation of Expected: 09/12/2022, Expires: 11/12/2022 Work Phone: Comment on above: Expected: 09/12/2022 , Expires: 11/12/2022 Start: 09-12-2022 End: 11-12-2022 Hepatitis B virus surface Ag [Presence] in Serum HEP B SURF AG SCRN Lab Routine Encounter for supervision of normal in multigravida 6 weeks gestation of Expected: 09/12/2022, Expires: 11/12/2022 Work Phone: Comment on above: Expected: 09/12/2022 , Expires: 11/12/2022 Start: 09-12-2022 End: 11-12-2022 Hepatitis C virus Ab [Presence] in Serum HEP C AB IA W/CONF SCRN Lab Routine Encounter for supervision of normal in multigravida 6 weeks gestation of Expected: 09/12/2022, Expires: 11/12/2022 Work Phone: Comment on above: Expected: 09/12/2022 , Expires: 11/12/2022 Start: 09-12-2022 End: 11-12-2022 HIV 1+2 Ab [Presence] in Serum or Plasma by Immunoassay HIV 1 2 COMBO(AG/AB),WITH REFLEX TO DIFFERENTIATION Lab Routine Encounter for supervision of normal in multigravida 6 weeks gestation of Expected: 09/12/2022, Expires: 11/12/2022 Work Phone: Comment on above: Expected: 09/12/2022 , Expires: 11/12/2022 Start: 09-12-2022 End: 09-13-2023 NUCHAL TRANSLUCENCY WHI NUCHAL TRANSLUCENCY WHI Anc Imaging Routine Encounter for supervision of normal in multigravida 6 weeks gestation of Expected: 09/12/2022, Expires: 09/13/2023 Work Phone: Comment on above: Expected: 09/12/2022 , Expires: 09/13/2023 Start: 09-12-2022 End: 09-13-2023 OBSTETRIC ULTRASOUND WHI OBSTETRIC ULTRASOUND WHI Anc Imaging Routine Encounter for supervision of normal in multigravida 6 weeks gestation of Expected: 09/12/2022, Expires: 09/13/2023 Work Phone: Comment on above: Expected: 09/12/2022 , Expires: 09/13/2023 Start: 09-12-2022 End: 11-12-2022 RUBELLA IGG AB RUBELLA IGG AB Lab Routine Encounter for supervision of normal in multigravida 6 weeks gestation of Expected: 09/12/2022, Expires: 11/12/2022 Work Phone: Comment on above: Expected: 09/12/2022 , Expires: 11/12/2022 Start: 09-12-2022 End: 11-12-2022 SYPHILIS TOTAL W/REFLEX SYPHILIS TOTAL W/REFLEX Lab Routine Encounter for supervision of normal in multigravida 6 weeks gestation of Expected: 09/12/2022, Expires: 11/12/2022 Work Phone: Comment on above: Expected: 09/12/2022 , Expires: 11/12/2022 Start: 09-12-2022 End: 11-12-2022 TYPE + SCREEN TYPE + SCREEN Blood Bank Routine Encounter for supervision of normal in multigravida 6 weeks gestation of Expected: 09/12/2022, Expires: 11/12/2022 Work Phone: Comment on above: Expected: 09/12/2022 , Expires: 11/12/2022 Start: 07-20-2022 End: 08-03-2022 Influenza virus A and B RNA and SARS-CoV-2 (COVID-19) N gene panel - Respiratory specimen by JAVIER with probe detection COVID WITH FLUA+B, ROUTINE Microbiology Routine Viral URI with cough Expected: 07/20/2022, Expires: 08/03/2022 Work Phone: Comment on above: Expected: 07/20/2022 , Expires: 08/03/2022 Start: 06-24-2022 DEPRESSION ASSESSMENT DEPRESSION ASS ESSMENT [facility] Start: 03-07-2022 DTaP/Tdap/Td vaccine (7 - Td or Tdap) DTaP/Tdap/Td vaccine (7 - Td or Tdap) [facility] Start: 03-07-2022 Urine microalbumin profile DTAP,TDAP,TD (7 - Td or Tdap) [facility] Start: 02-22-2022 Influenza vaccination S [facility] Start: 01-17-2020 CHLAMYDIA SCREENING (18-24) CHLAMYDIA SCREENING (18-24) [facility] Start: 01-17-2020 GC (GONORRHEA) SCREENING (18-24) GC (GONORRHEA) SCREENING (18-24) [facility] Start: 12-21-2018 Urine microalbumin profile DTAP,TDAP,TD (1 - Tdap) [facility] Start: 12-21-2017 ANNUAL PCP TEAM STABLE HELPER DEVON DISEASE VISIT ANNUAL PCP TEAM CHRONIC DISEASE VISIT [facility] Start: 12-21-2017 Anxiety Screening Anxiety Screening [facility] Start: 12-21-2017 Depression Screening Depression Scre ening [facility] Start: 12-21-2017 HEPATITIS C SCREENING HEPATITIS C SC REENING [facility] Start: 12-21-2017 HIV SCREENING HIV SCREENING [facility] Start: 12-21-2017 SPIROMETRY SPIROMETRY [facility] Start: 2015 Meningococcal B Vaccine: Consider Based On Risk (1 of 2 - Patient Seeks Protection) Meningococcal B Vaccine: Consider Based On Risk (1 of 2 - Patient Seeks Protection) [facility] Start: 2015 MENINGOCOCCAL B: Consider based on risk (1 of 2 - Patient Seeks Protection) MENINGOCOCCAL B: Consider based on risk (1 of 2 - Patient Seeks Protection) [facility] Start: 12-21-2013 PEDS TO ADULT TRANSITION ANNUAL ASSESSMENT PEDS TO ADULT TRANSITION ANNUAL ASSESSMENT [facility] Start: 2011 PEDS TO ADULT TRANSITION INITIAL DISCUSSION PEDS TO ADULT TRANSITION INITIAL DISCUSSION [facility] Start: 12-21-2010 HPV VACCINE (1 - 2-d ose series) HPV VACCINE (1 - 2-dose series) [facility] Start: 12-21-2009 MENINGOCOCCAL B: Consider based on risk (1 of 2 - Risk Bexsero 2-dose series) MENINGOCOCCAL B: Consider based on risk (1 of 2 - Risk Bexsero 2-dose series) [facility] Start: 12-21-2005 PNEUMOCOCCAL (1 - PCV) PNEUMOCOCCAL (1 - PCV) [facility] Start: 12-21-2005 Pneumococcal vaccination Pneumococcal Vaccine (1 - PCV) [facility] Start: 12-21-2004 COVID-19 Vaccine (1) COVID-19 Vaccin e (1) [facility] Start: 06-22-2000 COVID-19 VACCINE (#1) COVID-19 VACCI NE (#1) [facility] Start: 1999 HEPATITIS B (1 of 3 - 3-dose series) HEPATITIS B (1 of 3 - 3-dose series) [facility] Bacteria identified in Urine by Culture URINE CULTURE Microbiology Routine Encounter for supervision of normal in multigravida 6 weeks gestation of 09/12/2022 9:52 AM EDT Work Phone: Bacteria identified in Wound by Culture ABSCESS AND WOUND CULTURE WITH GRAM STAIN Microbiology Routine Intertrigo 06/03/2023 5:34 PM EST Work Phone: Chlamydia trachomatis+Neisseria gonorrhoeae DNA [Presence] in Unspecified specimen by JAVIER with probe detection GC/CHLAMYDIA DNA DET Lab Routine Encounter for supervision of normal in multigravida 6 weeks gestation of 09/12/2022 9:52 AM EDT Work Phone: End: 03-05-2024 ECHO ECHO Cardiology Routine Maternal care for (suspected) abnormality and damage, unspecified, fetus 1 1 Occurrences starting 03/05/2023 until 03/05/2024 Work Phone: Comment on above: 1 Occurrences starti ng 03/05/2023 until 03/05/2024 End: 11-02-2021 Group B Strep, PCR [facility] Work Phone: Comment on above: One Time for 1 Occur rences starting 11/02/2021 until 11/02/2021 Nonrebreather mask oxygen Nonrebreather mask oxygen Respiratory Care Routine As directed - RT (PRN) until discontinued starting 11/02/2021 [facility] Work Phone: Comment on above: As directed - RT (DC N) until discontinued starting 11/02/2021 TYPE AND SCREEN TYPE AND SCREEN Blood Bank Routine Every Third Day until discontinued starting 11/02/2021, 1 completed [facility] Work Phone: Comment on above: Every Third Day unti l discontinued starting 11/02/2021, 1 completed URINE OB DIP B/O URINE OB DIP B/ O Lab Routine 19 weeks gestation of Ordered: 12/11/2022 Work Phone: Comment on above: Ordered: 12/11/2022 End: 11-03-2021 US DOPPLER UMBILICAL ARTERY [facility] Work Phone: Comment on above: Once for 1 Occurrenc es starting 11/03/2021 until 11/03/2021 End: 11-03-2021 US BIOPHYSICAL PROFILE WO NON STRESS TESTING [facility] Work Phone: Comment on above: Once for 1 Occurrenc es starting 11/03/2021 until 11/03/2021 End: 11-03-2021 US OB 14 PLUS WEEKS SINGLE OR FIRST GESTATION US OB 14 PLUS WEEKS SINGLE OR FIRST GESTATION Imaging Routine Once for 1 Occurrences starting 11/03/2021 until 11/03/2021 [facility] Work Phone: Comment on above: Once for 1 Occurrenc es starting 11/03/2021 until 11/03/2021 US OB 14 PLUS WEEKS SINGLE OR FIRST GESTATION US OB 14 PLUS WEEKS SINGLE OR FIRST GESTATION Imaging Routine 11/03/2021 10:01 AM EDT [facility] Work Phone: [facility] Immunizations Immunization Date Immunization Notes Care Provider Fa mela 03-14-2023 influenza, injectabl e, quadrivalent, contains preservative Carole Quintero MD Work Phone: [facility] 03-14-2023 influenza virus vacc ine, unspecified formulation Lise Concepcion MD Work Phone: [facility] 02-28-2023 RHO(D) immune globul in- IV or IM Keyon Glover MD Work Phone: [facility] 02-05-2023 tetanus toxoid, redu matthew diphtheria toxoid, and acellular pertussis vaccine, adsorbed Carole Quintero MD Work Phone: [facility] Work Phone: 05-07-2018 influenza, injectabl e, quadrivalent, preservative free Carole Quintero MD Work Phone: [facility] Work Phone: 05-07-2018 influenza virus vacc ine, unspecified formulation Keyon Glover MD Work Phone: [facility] 02-09-2017 Human Papillomavirus 9-valent vaccine Carole Quintero MD Work Phone: [facility] Work Phone: 02-09-2017 meningococcal polysaccharide (groups A, C, Y and W-135) diphtheria toxoid conjugate vaccine (MCV4P) Carole Quintero MD Work Phone: [facility] Work Phone: 01-27-2014 human papilloma viru s vaccine, quadrivalent Carole Quintero MD Work Phone: [facility] Work Phone: 03-07-2012 human papilloma viru s vaccine, quadrivalent Carole Quintero MD Work Phone: [facility] Work Phone: 03-07-2012 influenza, seasonal, injectable Carole Quintero MD Work Phone: [facility] Work Phone: 03-07-2012 tetanus toxoid, redu matthew diphtheria toxoid, and acellular pertussis vaccine, adsorbed Carole Quintero MD Work Phone: [facility] Work Phone: 03-01-2011 influenza virus vacc ine, whole virus Carole Quintero MD Work Phone: [facility] Work Phone: 03-01-2011 meningococcal polysaccharide (groups A, C, Y and W-135) diphtheria toxoid conjugate vaccine (MCV4P) Carole Quintero MD Work Phone: [facility] Work Phone: 06-08-2009 influenza virus vacc ine, whole virus Carole Quintero MD Work Phone: [facility] Work Phone: 06-08-2009 novel influenza-H1N1 -09, preservative-free, injectable Carole Quintero MD Work Phone: [facility] Work Phone: 01-26-2009 hepatitis A vaccine, pediatric/adolescent dosage, 2 dose schedule Carole Quintero MD Work Phone: [facility] Work Phone: 04-09-2008 influenza virus vacc ine, whole virus Carole Quintero MD Work Phone: [facility] Work Phone: 01-06-2008 hepatitis A vaccine, pediatric/adolescent dosage, 2 dose schedule Carole Quintero MD Work Phone: [facility] Work Phone: 01-06-2008 varicella virus vaccine Nara Quintero MD Work Phone: [facility] Work Phone: 04-25-2006 influenza virus vacc ine, whole virus Carole Quintero MD Work Phone: [facility] Work Phone: 03-19-2005 diphtheria, tetanus toxoids and acellular pertussis vaccine, unspecified formulation Carole Quintero MD Work Phone: [facility] Work Phone: 03-19-2005 measles, mumps and rubella virus vaccine Carole Quintero MD Work Phone: [facility] Work Phone: 03-19-2005 poliovirus vaccine, inactivated Carole Quintero MD Work Phone: [facility] Work Phone: 2001 pneumococcal conjuga te vaccine, 7 valent Carole Quintero MD Work Phone: [facility] Work Phone: 06-25-2001 haemophilus influenz ae type b vaccine, PRP-T conjugate Carole Quintero MD Work Phone: [facility] Work Phone: 03-20-2001 diphtheria, tetanus toxoids and acellular pertussis vaccine, unspecified formulation Carole Quintero MD Work Phone: [facility] Work Phone: 03-20-2001 poliovirus vaccine, inactivated Carole Quintero MD Work Phone: [facility] Work Phone: 12-27-2000 haemophilus influenz ae type b conjugate and Hepatitis B vaccine Carole Quintero MD Work Phone: [facility] Work Phone: 12-27-2000 measles, mumps and rubella virus vaccine Carole Quintero MD Work Phone: [facility] Work Phone: 12-27-2000 varicella virus vaccine Nara Quintero MD Work Phone: [facility] Work Phone: 07-08-2000 diphtheria, tetanus toxoids and acellular pertussis vaccine, unspecified formulation Carole Quintero MD Work Phone: [facility] Work Phone: 07-08-2000 pneumococcal conjuga te vaccine, 7 valent Carole Quintero MD Work Phone: [facility] Work Phone: 04-25-2000 diphtheria, tetanus toxoids and acellular pertussis vaccine, unspecified formulation Carole Quintero MD Work Phone: [facility] Work Phone: 04-25-2000 haemophilus influenz ae type b conjugate and Hepatitis B vaccine Carole Quintero MD Work Phone: [facility] Work Phone: 04-25-2000 pneumococcal conjuga te vaccine, 7 valent Carole Quintero MD Work Phone: [facility] Work Phone: 04-25-2000 poliovirus vaccine, inactivated Carole Quintero MD Work Phone: [facility] Work Phone: 03-05-2000 diphtheria, tetanus toxoids and acellular pertussis vaccine, unspecified formulation Carole Quintero MD Work Phone: [facility] Work Phone: 03-05-2000 haemophilus influenz ae type b conjugate and Hepatitis B vaccine Carole Quintero MD Work Phone: [facility] Work Phone: 03-05-2000 pneumococcal conjuga te vaccine, 7 valent Carole Quintero MD Work Phone: [facility] Work Phone: 03-05-2000 poliovirus vaccine, inactivated Carole Quintero MD Work Phone: [facility] Work Phone: Payers Date Payer Category Payer Unknown [id number] 2024 Self-pay 2022 Medicaid [id number] 2022 Medicaid [id number] 2018 Unknown 1999 Unknown [id number] Unknown [id number] Unknown [id number] Unknown [id number] Social History Date Type Detail Facility Start: 11-02-2021 End: 03-21-2022 Tobacco smoking status NHIS Never smoked tobacco [facility] Work Phone: Start: 11-02-2021 End: 03-21-2022 Tobacco use and exposure Smokeless tobacco non-user [facility] Work Phone: Start: 11-02-2021 End: 11-25-2023 Alcohol intake Ex-drinker (finding) [facility] Work Phone: Start: 04-14-2021 [facility] Work Phone: Start: 2000 Sex Assigned At Not on file [facility] Work Phone: Start: 10-23-2021 End: 11-02-2021 Exposure to SARS-CoV-2 (event) Not sure [facility] Work Phone: Start: 07-20-2022 Alcohol intake Current drinke r of alcohol (finding) [facility] Start: 03-20-2021 Alcohol Comment rare, once a month [facility] Start: 09-06-2022 Education 13 [facility] Start: 11-30-2022 End: 03-29-2023 History of Social function [facility] Start: 11-30-2022 End: 03-29-2023 Tobacco use panel [facility] National Score (1-10 0), lower number is lower risk 67 [facility] The thought of héctorlashell hyde myself has occurred to me Never [facility] Medical Equipment Procedure Code Equipment Code Equipment Original Text Equipment Identifier Dates Start: 03-07-2023 Comment on above: 1 Strip four times d aily. Use as instructed 1 Each four times da azar. Use as instructed Goals Date Patient Goal Desired Activity /State Personal health goal Clinical Notes 03-03-2012 to 03-27-2024 Telephone Encounter - Diana Anderson RN - 03/27/2024 9:07 AM EDTTelephone Encounter - Diana Anderson RN - 03/27/2024 9:07 AM EDTTelephone Encounter - Lise Concepcion MD - 03/26/2024 5:22 PM EDT Note Date & Type Note Facility 03-27-2024 Telephone encounter Note Patient called in to the office. Notified. Diana Anderson RN [facility] 03-27-2024 Miscellaneous Notes Patient called in to the office. Notified. Diana Anderson RN Agree with repeat preg test next week if period does not start. To track menstrual cycles and call if menstrual cycles are not every 24-38 days Patient calling because she is 2 days late for menses. She said this is very unusual for her.. She typically always starts on the 1st of the month. She took urine test yesterday and it was negative. Had bilateral salpingectomy 04/2023 with last . She stopped OCP too about 5 months ago. She is having pelvic menstrual like cramping. States it is dull and rates 2/10 when it does occur. No one sided pelvic pain at all. Advised provider may recommend repeating UPT next week if still no menses yet at that point. Please advise. Mily Forrester RN documented in this encounter [facility] 03-26-2024 Telephone encounter Note Agree with repeat preg test next week if period does not start. To track menstrual cycles and call if menstrual cycles are not every 24-38 days [facility] 03-26-2024 Telephone encounter Note Patient calling because she is 2 days late for menses. She said this is very unusual for her.. She typically always starts on the 1st of the month. She took urine test yesterday and it was negative. Had bilateral salpingectomy 04/2023 with last . She stopped OCP too about 5 months ago. She is having pelvic menstrual like cramping. States it is dull and rates 2/10 when it does occur. No one sided pelvic pain at all. Advised provider may recommend repeating UPT next week if still no menses yet at that point. Please advise. Mily Forrester RN [facility] 11-25-2023 Note HNO ID: [id number] Author: WOLFGANG NGUYEN MD Service: ? Author Type: Physician Type: Progress Notes Filed: 11/25/2023 10:55 Note Text: Director Market Intelligence offered: Patient accepts, visit chaperoned by ma. Suad Simpson is a 22 year old female who presents for problem visit for potential STI exposure.. HPI: Potential STI exposure from allege to have had unprotected sex with a bisexual individual rumored to have HIV. OB History T2 L2 SAB4 IAB0 Ectopic0 Multiple0 Live Births2 Medical Language Specialist History LMP: 07/09/2023 (Exact Date), Unknown Age at Menarche: Age at First : Age at Menopause: Medical Language Specialist History Comments: Sexual Activity: Yes; Male Contraception: Pill PAST MEDICAL HISTORY Diagnosis Date ADD (attention deficit disorder) ADHD (attention deficit hyperactivity disorder) Anemia Asthma Chlamydia Hypochondroplasia depression PAST SURGICAL HISTORY Procedure Laterality Date DELIVERY ONLY 12/15/2021 DELIVERY ONLY 04/26/2023 LTCS PAST SURGICAL HISTORY OF Right 11/26/2018 patellar stabilization and right knee meniscal repair FAMILY HISTORY Problem Relation Age of Onset Seizures Mother Heart Mother Seizures Father Kidney failure Father Alcohol abuse Father No Known Problems Sister No Known Problems Sister No Known Problems Sister other (deaf) Sister No Known Problems Brother Heart Brother Heart Maternal Grandmother Hypertension Maternal Grandmother Lipids Maternal Grandmother Stroke Maternal Grandmother Heart Maternal Grandfather Hypertension Maternal Grandfather Lipids Maternal Grandfather Heart Paternal Grandmother Hypertension Paternal Grandmother Lipids Paternal Grandmother Heart Paternal Grandfather Hypertension Paternal Grandfather Lipids Paternal Grandfather No Known Problems Daughter Social History Tobacco Use Smoking status: Never Smokeless tobacco: Never Vaping Use Vaping Use: Never used Substance Use Topics Alcohol use: Not Currently Comment: rare, once a month Drug use: No Current Outpatient Medications Medication Sig FLUoxetine (PROZAC) 10 mg capsule Take 1 capsule by mouth once daily. Norethin Diogenes-Eth Estrad-FE (07/13, ,) 1 mg-20 mcg (21)/75 mg (7) per tablet Take 1 tablet by mouth once daily. docusate sodium (COLACE) 100 mg capsule Take 1 capsule by mouth two times a day. (Patient not taking: Reported on 07/29/2023) ferrous sulfate (IRON ORAL) Take 600 mg by mouth. every other day (Patient not taking: Reported on 07/29/2023) ibuprofen (MOTRIN) 600 mg tablet Take 1 tablet by mouth every 6 hours as needed for pain. FOR PAIN. (Patient not taking: Reported on 07/29/2023) polyethylene glycol 3350 17 gram/dose powder Take 17 g by mouth two times a day as needed for constipation. magnesium oxide (MAG-OX) 400 mg (241.3 mg magnesium) tablet Take 1 tablet by mouth once daily. BECLOMETHASONE DIPROPIONATE (QVAR INHALATION) Inhale as instructed. albuterol HFA (VENTOLIN HFA) 90 mcg/actuation inhaler Inhale 2 Puffs as instructed. albuterol 90 mcg/actuation Aero Inhale 2 Puffs as instructed three times daily as needed. FOR WHEEZING AND SHORTNESS OF BREATH. No current facility-administered medications for this visit. Allergies As of Date: 11/25/2023 Allergen Noted Reaction AMOXICILLIN 12/16/2018 Hives CODEINE 03/03/2012 GI Upset Fully Assessed 07/29/2023 REVIEW OF SYSTEMS Abdomen: No bloating, early satiety, indigestion, or increased flatulence. No abdominal pain, nausea, vomiting, diarrhea, or constipation. Bladder: No dysuria, gross hematuria, urinary frequency, urinary urgency, or incontinence. Breast: No breast lumps, nipple d/c, overlying skin changes, redness or skin retraction. Expanded ROS: N/A Allergies and current medication updated:Yes EXAM: LMP 07/09/2023 GENERAL: pleasant, female in no apparent distress PELVIC: external genitalia normal, normal Bartholin's glands, urethra, Reasnor's glands, no vulvar lesions, no cervical lesions, good vaginal support, physiologic discharge present, normal appearing perineal body and perianal region BIMANUAL: uterus normal size, shape and consistency, no adnexal masses, and non-tender ASSESSMENT AND PLAN: Potential STD exposure, screening requested / ordered FTFT with patient and prep > 30 min Wolfgang Nguyen MD [facility] 11-25-2023 History of Presen t illness Narrative Director Market Intelligence offered: Patient accepts, visit chaperoned by ma. Saud Simpson is a 22 year old female who presents for problem visit for potential STI exposure.. HPI: Potential STI exposure from allege to have had unprotected sex with a bisexual individual rumored to have HIV. OB History T2 L2 SAB4 IAB0 Ectopic0 Multiple0 Live Births2 Medical Language Specialist History LMP: 07/09/2023 (Exact Date), Unknown Age at Menarche: Age at First : Age at Menopause: Medical Language Specialist History Comments: Sexual Activity: Yes; Male Contraception: Pill PAST MEDICAL HISTORY Diagnosis Date ADD (attention deficit disorder) ADHD (attention deficit hyperactivity disorder) Anemia Asthma Chlamydia Hypochondroplasia depression PAST SURGICAL HISTORY Procedure Laterality Date DELIVERY ONLY 12/15/2021 DELIVERY ONLY 04/26/2023 LTCS PAST SURGICAL HISTORY OF Right 11/26/2018 patellar stabilization and right knee meniscal repair FAMILY HISTORY Problem Relation Age of Onset Seizures Mother Heart Mother Seizures Father Kidney failure Father Alcohol abuse Father No Known Problems Sister No Known Problems Sister No Known Problems Sister other (deaf) Sister No Known Problems Brother Heart Brother Heart Maternal Grandmother Hypertension Maternal Grandmother Lipids Maternal Grandmother Stroke Maternal Grandmother Heart Maternal Grandfather Hypertension Maternal Grandfather Lipids Maternal Grandfather Heart Paternal Grandmother Hypertension Paternal Grandmother Lipids Paternal Grandmother Heart Paternal Grandfather Hypertension Paternal Grandfather Lipids Paternal Grandfather No Known Problems Daughter Social History Tobacco Use Smoking status: Never Smokeless tobacco: Never Vaping Use Vaping Use: Never used Substance Use Topics Alcohol use: Not Currently Comment: rare, once a month Drug use: No Current Outpatient Medications Medication Sig FLUoxetine (PROZAC) 10 mg capsule Take 1 capsule by mouth once daily. Norethin Diogenes-Eth Estrad-FE (07/13, ,) 1 mg-20 mcg (21)/75 mg (7) per tablet Take 1 tablet by mouth once daily. docusate sodium (COLACE) 100 mg capsule Take 1 capsule by mouth two times a day. (Patient not taking: Reported on 07/29/2023) ferrous sulfate (IRON ORAL) Take 600 mg by mouth. every other day (Patient not taking: Reported on 07/29/2023) ibuprofen (MOTRIN) 600 mg tablet Take 1 tablet by mouth every 6 hours as needed for pain. FOR PAIN. (Patient not taking: Reported on 07/29/2023) polyethylene glycol 3350 17 gram/dose powder Take 17 g by mouth two times a day as needed for constipation. magnesium oxide (MAG-OX) 400 mg (241.3 mg magnesium) tablet Take 1 tablet by mouth once daily. BECLOMETHASONE DIPROPIONATE (QVAR INHALATION) Inhale as instructed. albuterol HFA (VENTOLIN HFA) 90 mcg/actuation inhaler Inhale 2 Puffs as instructed. albuterol 90 mcg/actuation Aero Inhale 2 Puffs as instructed three times daily as needed. FOR WHEEZING AND SHORTNESS OF BREATH. No current facility-administered medications for this visit. Allergies As of Date: 11/25/2023 Allergen Noted Reaction AMOXICILLIN 12/16/2018 Hives CODEINE 03/03/2012 GI Upset Fully Assessed 07/29/2023 REVIEW OF SYSTEMS Abdomen: No bloating, early satiety, indigestion, or increased flatulence. No abdominal pain, nausea, vomiting, diarrhea, or constipation. Bladder: No dysuria, gross hematuria, urinary frequency, urinary urgency, or incontinence. Breast: No breast lumps, nipple d/c, overlying skin changes, redness or skin retraction. Expanded ROS: N/A Allergies and current medication updated:Yes EXAM: LMP 07/09/2023 GENERAL: pleasant, female in no apparent distress PELVIC: external genitalia normal, normal Bartholin's glands, urethra, Reasnor's glands, no vulvar lesions, no cervical lesions, good vaginal support, physiologic discharge present, normal appearing perineal body and perianal region BIMANUAL: uterus normal size, shape and consistency, no adnexal masses, and non-tender ASSESSMENT AND PLAN: Potential STD exposure, screening requested / ordered FTFT with patient and prep > 30 min Wolfgang Nguyen MD documented in this encounter [facility] 07-29-2023 Note HNO ID: [id number] Author: LISE CONCEPCION MD Service: ? Author Type: Physician Type: Progress Notes Filed: 08/05/2023 18:15 Note Text: Saud Simpson is a 22 year old female who presents for follow up. HPI: Started Lexapro 06/10/23. No side effects but no improvement in mood. Has a lot of stress at home and limited support. Having heavy periods. Regular menstrual cycles with menorrhagia. Desires to start the pill. No SI or HI today. OB History T2 L2 SAB4 IAB0 Ectopic0 Multiple0 Live Births2 Medical Language Specialist History LMP: 07/09/2023 (Exact Date), Unknown Age at Menarche: Age at First : Age at Menopause: Medical Language Specialist History Comments: Sexual Activity: Yes; Male Contraception: Pill PAST MEDICAL HISTORY Diagnosis Date ADD (attention deficit disorder) ADHD (attention deficit hyperactivity disorder) Anemia Asthma Chlamydia Hypochondroplasia depression PAST SURGICAL HISTORY Procedure Laterality Date DELIVERY ONLY 12/15/2021 DELIVERY ONLY 04/26/2023 LTCS PAST SURGICAL HISTORY OF Right 11/26/2018 patellar stabilization and right knee meniscal repair FAMILY HISTORY Problem Relation Age of Onset Seizures Mother Heart Mother Seizures Father Kidney failure Father Alcohol abuse Father No Known Problems Sister No Known Problems Sister No Known Problems Sister other (deaf) Sister No Known Problems Brother Heart Brother Heart Maternal Grandmother Hypertension Maternal Grandmother Lipids Maternal Grandmother Stroke Maternal Grandmother Heart Maternal Grandfather Hypertension Maternal Grandfather Lipids Maternal Grandfather Heart Paternal Grandmother Hypertension Paternal Grandmother Lipids Paternal Grandmother Heart Paternal Grandfather Hypertension Paternal Grandfather Lipids Paternal Grandfather No Known Problems Daughter Social History Tobacco Use Smoking status: Never Smokeless tobacco: Never Vaping Use Vaping Use: Never used Substance Use Topics Alcohol use: Not Currently Comment: rare, once a month Drug use: No Current Outpatient Medications Medication Sig BECLOMETHASONE DIPROPIONATE (QVAR INHALATION) Inhale as instructed. FLUoxetine (PROZAC) 10 mg capsule Take 1 capsule by mouth once daily. Norethin Diogenes-Eth Estrad-FE (07/13, ,) 1 mg-20 mcg (21)/75 mg (7) per tablet Take 1 tablet by mouth once daily. docusate sodium (COLACE) 100 mg capsule Take 1 capsule by mouth two times a day. (Patient not taking: Reported on 07/29/2023) ferrous sulfate (IRON ORAL) Take 600 mg by mouth. every other day (Patient not taking: Reported on 07/29/2023) ibuprofen (MOTRIN) 600 mg tablet Take 1 tablet by mouth every 6 hours as needed for pain. FOR PAIN. (Patient not taking: Reported on 07/29/2023) polyethylene glycol 3350 17 gram/dose powder Take 17 g by mouth two times a day as needed for constipation. magnesium oxide (MAG-OX) 400 mg (241.3 mg magnesium) tablet Take 1 tablet by mouth once daily. albuterol HFA (VENTOLIN HFA) 90 mcg/actuation inhaler Inhale 2 Puffs as instructed. albuterol 90 mcg/actuation Aero Inhale 2 Puffs as instructed three times daily as needed. FOR WHEEZING AND SHORTNESS OF BREATH. No current facility-administered medications for this visit. Allergies As of Date: 07/29/2023 Allergen Noted Reaction AMOXICILLIN 12/16/2018 Hives CODEINE 03/03/2012 GI Upset Fully Assessed 07/29/2023 REVIEW OF SYSTEMS Expanded ROS: No pain. Allergies and current medication updated:Yes EXAM: BP 104/60 Wt 176 lb (79.8kg) LMP 07/09/2023 GENERAL: pleasant, female in no apparent distress HEENT: Normocephalic and atraumatic NECK: full range of motion DERMATOLOGY: Normal and without lesions CHEST: Normal inspiratory effort NEURO: exam grossly non-focal EXTREMITIES: normal ASSESSMENT AND PLAN: Encounter Diagnosis ICD-10-CM 1. depression F53.0 CONSULT TO [facility]OMEN'S [facility]IORAL [facility] FLUoxetine (PROZAC) 10 mg capsule 2. Menorrhagia with regular cycle N92.0 Norethin Diogenes-Eth Estrad-FE (,) 1 mg-20 mcg (21)/75 mg (7) per tablet 3. care and examination Z39.2 CONSULT TO [facility]OMEN'S [facility]IORAL [facility] FLUoxetine (PROZAC) 10 mg capsule 4. Encounter for initial prescription of contraceptive pills Z30.011 Norethin Diogenes-Eth Estrad-FE (,) 1 mg-20 mcg (21)/75 mg (7) per tablet Consult to women's behavorial health. Start Prozac after discussion of r/b/a. Start ocp for menorrhagia after discussion of r/b/a. Schedule follow up. Lies Concepcion DO Medical Decision Making: Problems: Low: 2+ self-limited or minor problems Risk: Moderate: Drug management Medical Decision Making Level: 3 - Low [facility] 07-29-2023 History of Presen t illness Narrative Saud Simpson is a 22 year old female who presents for follow up. HPI: Started Lexapro 06/10/23. No side effects but no improvement in mood. Has a lot of stress at home and limited support. Having heavy periods. Regular menstrual cycles with menorrhagia. Desires to start the pill. No SI or HI today. OB History T2 L2 SAB4 IAB0 Ectopic0 Multiple0 Live Births2 Medical Language Specialist History LMP: 07/09/2023 (Exact Date), Unknown Age at Menarche: Age at First : Age at Menopause: Medical Language Specialist History Comments: Sexual Activity: Yes; Male Contraception: Pill PAST MEDICAL HISTORY Diagnosis Date ADD (attention deficit disorder) ADHD (attention deficit hyperactivity disorder) Anemia Asthma Chlamydia Hypochondroplasia depression PAST SURGICAL HISTORY Procedure Laterality Date DELIVERY ONLY 12/15/2021 DELIVERY ONLY 04/26/2023 LTCS PAST SURGICAL HISTORY OF Right 11/26/2018 patellar stabilization and right knee meniscal repair FAMILY HISTORY Problem Relation Age of Onset Seizures Mother Heart Mother Seizures Father Kidney failure Father Alcohol abuse Father No Known Problems Sister No Known Problems Sister No Known Problems Sister other (deaf) Sister No Known Problems Brother Heart Brother Heart Maternal Grandmother Hypertension Maternal Grandmother Lipids Maternal Grandmother Stroke Maternal Grandmother Heart Maternal Grandfather Hypertension Maternal Grandfather Lipids Maternal Grandfather Heart Paternal Grandmother Hypertension Paternal Grandmother Lipids Paternal Grandmother Heart Paternal Grandfather Hypertension Paternal Grandfather Lipids Paternal Grandfather No Known Problems Daughter Social History Tobacco Use Smoking status: Never Smokeless tobacco: Never Vaping Use Vaping Use: Never used Substance Use Topics Alcohol use: Not Currently Comment: rare, once a month Drug use: No Current Outpatient Medications Medication Sig BECLOMETHASONE DIPROPIONATE (QVAR INHALATION) Inhale as instructed. FLUoxetine (PROZAC) 10 mg capsule Take 1 capsule by mouth once daily. Norethin Diogenes-Eth Estrad-FE (JUNEL FE 07/13, ,) 1 mg-20 mcg (21)/75 mg (7) per tablet Take 1 tablet by mouth once daily. docusate sodium (COLACE) 100 mg capsule Take 1 capsule by mouth two times a day. (Patient not taking: Reported on 07/29/2023) ferrous sulfate (IRON ORAL) Take 600 mg by mouth. every other day (Patient not taking: Reported on 07/29/2023) ibuprofen (MOTRIN) 600 mg tablet Take 1 tablet by mouth every 6 hours as needed for pain. FOR PAIN. (Patient not taking: Reported on 07/29/2023) polyethylene glycol 3350 17 gram/dose powder Take 17 g by mouth two times a day as needed for constipation. magnesium oxide (MAG-OX) 400 mg (241.3 mg magnesium) tablet Take 1 tablet by mouth once daily. albuterol HFA (VENTOLIN HFA) 90 mcg/actuation inhaler Inhale 2 Puffs as instructed. albuterol 90 mcg/actuation Aero Inhale 2 Puffs as instructed three times daily as needed. FOR WHEEZING AND SHORTNESS OF BREATH. No current facility-administered medications for this visit. Allergies As of Date: 07/29/2023 Allergen Noted Reaction AMOXICILLIN 12/16/2018 Hives CODEINE 03/03/2012 GI Upset Fully Assessed 07/29/2023 REVIEW OF SYSTEMS Expanded ROS: No pain. Allergies and current medication updated:Yes EXAM: BP 104/60 Wt 176 lb (79.8kg) LMP 07/09/2023 GENERAL: pleasant, female in no apparent distress HEENT: Normocephalic and atraumatic NECK: full range of motion DERMATOLOGY: Normal and without lesions CHEST: Normal inspiratory effort NEURO: exam grossly non-focal EXTREMITIES: normal ASSESSMENT AND PLAN: Encounter Diagnosis ICD-10-CM 1. depression F53.0 CONSULT TO [facility] FLUoxetine (PROZAC) 10 mg capsule 2. Menorrhagia with regular cycle N92.0 Norethin Diogenes-Eth Estrad-FE (,) 1 mg-20 mcg (21)/75 mg (7) per tablet 3. care and examination Z39.2 CONSULT TO [facility] FLUoxetine (PROZAC) 10 mg capsule 4. Encounter for initial prescription of contraceptive pills Z30.011 Norethin Diogenes-Eth Estrad-FE (,) 1 mg-20 mcg (21)/75 mg (7) per tablet Consult to [facility]. Start Prozac after discussion of r/b/a. Start ocp for menorrhagia after discussion of r/b/a. Schedule follow up. Lise Concepcion DO Medical Decision Making: Problems: Low: 2+ self-limited or minor problems Risk: Moderate: Drug management Medical Decision Making Level: 3 - Low documented in this encounter [facility] 06-12-2023 Note HNO ID: [id number] Author: Constance Moncada APRN.PROJECT CONTROL OFFICER Service: ? Author Type: Nurse Practitioner Type: Progress Notes Filed: 06/12/2023 4:22 PM Note Text: Called to triage patient, Endorses experiencing chest pain She is one month post She warrants an EKG, Referred to ED Boyfriend at bedside to take patient. [facility] 06-10-2023 Note HNO ID: [id number] Author: Lise Concepcion MD Service: ? Author Type: Physician Type: Progress Notes Filed: 06/10/2023 5:11 PM Note Text: Director Market Intelligence offered: Patient declines. VISIT Saud Simpson is a 22 year old year old here for visit. Delivery Summary: c/s 04/26/2023 ROS/ Recovery: Feeding: Bottle feeding problems: None Menses since delivery: none Menstrual pattern prior to : Irregular periods [place] since delivery: Resumed and Painful Depression: denies, admits to symptoms of depression. Has been on Zoloft before in the past and she did not like the way if made her feel. OB Depression and Anxiety Screening- This Encounter (since 06/09/2023) Over the past 2 weeks have you felt down, depressed, or hopeless? Positive - Further Testing Indicated Over the past two weeks, have you felt little interest or pleasure in doing things?? Positive - Further Testing Indicated I have been able to laugh and see the funny side of things. Not quite so much now I have looked forward with enjoyment to things. Definitely less than I used to I have blamed myself unnecessarily when things went wrong. Yes, most of the time I have been anxious or worried for no good reason. Yes, very often I have felt scared or panicky for no good reason. Yes, sometimes Things have been getting on top of me. Yes, sometimes I haven't been coping as well as usual I have been so unhappy that I have had difficulty sleeping. Yes, sometimes I have felt sad or miserable. Yes, quite often I have been so unhappy that I have been crying. Yes, most of the time The thought of harming myself has occurred to me. Never [place] Depression Scale Total 20 Feeling nervous, anxious or on edge 3-Nearly every day Not being able to stop or control worrying 3-Nearly every day Anxiety Pre-Screening Total (If >/= 3 additional questions will be reviewed) 6 Worrying too much about different things 1-Several days Trouble relaxing 1-Several days Being so restless that it is hard to sit still 1-Several days Becoming easily annoyed or irritable 2-More than half the days Feeling afraid, as if something awful might happen 0-Not al all Anxiety (HERMAN) Full Screening Total 11 Emotional support: Yes Bowel symptoms: Constipation, Negative for abdominal discomfort, blood in stools or black stools, and change in bowel habits - Having a BM q 3 days that is a large amount of stool but firm and after straining. Passing gas Abdomen: She reports no incisional redness, tenderness, erythema - Some abdominal tenderness Bladder symptoms: No dysuria, gross hematuria, urinary frequency, urinary urgency, or incontinence Other issues: None Last Pap: 2021 normal HPV: N/A PAST MEDICAL HISTORY Diagnosis Date ADD (attention deficit disorder) ADHD (attention deficit hyperactivity disorder) Anemia Asthma Chlamydia Hypochondroplasia depression PAST SURGICAL HISTORY Procedure Laterality Date DELIVERY ONLY 12/15/2021 DELIVERY ONLY 04/26/2023 LTCS PAST SURGICAL HISTORY OF Right 11/26/2018 patellar stabilization and right knee meniscal repair FAMILY HISTORY Problem Relation Age of Onset Seizures Mother Heart Mother Seizures Father Kidney failure Father Alcohol abuse Father No Known Problems Sister No Known Problems Sister No Known Problems Sister other (deaf) Sister No Known Problems Brother Heart Brother Heart Maternal Grandmother Hypertension Maternal Grandmother Lipids Maternal Grandmother Stroke Maternal Grandmother Heart Maternal Grandfather Hypertension Maternal Grandfather Lipids Maternal Grandfather Heart Paternal Grandmother Hypertension Paternal Grandmother Lipids Paternal Grandmother Heart Paternal Grandfather Hypertension Paternal Grandfather Lipids Paternal Grandfather No Known Problems Daughter Social History Tobacco Use Smoking status: Never Smokeless tobacco: Never Vaping Use Vaping Use: Never used Substance Use Topics Alcohol use: Not Currently Comment: rare, once a month Drug use: No PHYSICAL EXAMINATION: BP 100/62 Wt 168 lb 6.4 oz (76.4kg) LMP 07/19/2022 GENERAL: pleasant, female in no apparent distress HEENT: Normocephalic and atraumatic NECK: full range of motion DERMATOLOGY: Normal, without lesions, non-icteric, and non-hirsute BREAST: soft, non-tender, symmetric, no dominant mass, normal nipple-areolar complex, no lymphadenopathy, and no nipple discharge CHEST: Normal inspiratory effort ABDOMEN: soft and no masses. +diffuse tenderness across abdomen. No rebounding, no guarding, no rigidity INCISION: No incisional redness, swelling, or drainage PELVIC: external genitalia normal, normal Bartholin's glands, urethra, Reasnor's glands, no vulvar lesions, no cervical lesions, good vaginal suppor (more content not included)... [facility] 06-03-2023 Note HNO ID: [id number] Author: Alan Vargas MD Service: ? Author Type: Physician Type: Progress Notes Filed: 06/03/2023 5:41 PM Note Text: Patient presents with: Derm Problem: redness and soreness on right side area x 2 days, 04/26 HPI: Skin Lesion: Location: along incision Duration: flared up the last 2 days Pruritis/Pain: sore Change: Drainage/blister/pustule/ulcerat ion: red, sticky, malodorous Treatment: soap and water Denies fever or chills. She has mild discharge (pink to yellow) which has been present and fluctuating since 04/26. MEDICATIONS: ferrous sulfate (IRON ORAL) Take 600 mg by mouth. every other day docusate sodium (COLACE) 100 mg capsule Take 1 capsule by mouth two times a day. ibuprofen (MOTRIN) 600 mg tablet Take 1 tablet by mouth every 6 hours as needed for pain. FOR PAIN. polyethylene glycol 3350 17 gram/dose powder Take 17 g by mouth two times a day as needed for constipation. magnesium oxide (MAG-OX) 400 mg (241.3 mg magnesium) tablet Take 1 tablet by mouth once daily. BECLOMETHASONE DIPROPIONATE (QVAR INHALATION) Inhale as instructed. albuterol 90 mcg/actuation Aero Inhale 2 Puffs as instructed three times daily as needed. FOR WHEEZING AND SHORTNESS OF BREATH. albuterol HFA (VENTOLIN HFA) 90 mcg/actuation inhaler Inhale 2 Puffs as instructed. ALLERGIES: ALLERGIES Allergen Reactions Amoxicillin Hives Codeine GI Upset VITALS: BP 108/66 Pulse 100 Temp 37 ?C (98.6 ?F) Resp 16 Wt 73.9 kg (163 lb) LMP 07/19/2022 (Exact Date) SpO2 99% BMI 32.92 kg/m? PE: Pleasant, in no acute distress. Accompanied by her SKIN: erythematous rash of opposing surfaces below the abdominal panus. There are shallow ulcerations and slight indurated patches. incision is well approximated. ASSESSMENT/PLAN: 1. Intertrigo - ICD9: 695.89, ICD10: L30.4 Keep area dry. - NYSTATIN 100,000 UNIT/GRAM TOPICAL POWDER Keep a cloth like a handkerchief or shirt between the skin folds. - ABSCESS AND WOUND CULTURE WITH GRAM STAIN Alan Vargas MD [facility] 06-03-2023 History of Presen t illness Narrative Patient presents with: Derm Problem: redness and soreness on right side area x 2 days, 04/26 HPI: Skin Lesion: Location: along incision Duration: flared up the last 2 days Pruritis/Pain: sore Change: Drainage/blister/pustule/ulcerat ion: red, sticky, malodorous Treatment: soap and water Denies fever or chills. She has mild discharge (pink to yellow) which has been present and fluctuating since 04/26. MEDICATIONS: ferrous sulfate (IRON ORAL) Take 600 mg by mouth. every other day docusate sodium (COLACE) 100 mg capsule Take 1 capsule by mouth two times a day. ibuprofen (MOTRIN) 600 mg tablet Take 1 tablet by mouth every 6 hours as needed for pain. FOR PAIN. polyethylene glycol 3350 17 gram/dose powder Take 17 g by mouth two times a day as needed for constipation. magnesium oxide (MAG-OX) 400 mg (241.3 mg magnesium) tablet Take 1 tablet by mouth once daily. BECLOMETHASONE DIPROPIONATE (QVAR INHALATION) Inhale as instructed. albuterol 90 mcg/actuation Aero Inhale 2 Puffs as instructed three times daily as needed. FOR WHEEZING AND SHORTNESS OF BREATH. albuterol HFA (VENTOLIN HFA) 90 mcg/actuation inhaler Inhale 2 Puffs as instructed. ALLERGIES: ALLERGIES Allergen Reactions Amoxicillin Hives Codeine GI Upset VITALS: BP 108/66 Pulse 100 Temp 37 C (98.6 F) Resp 16 Wt 73.9 kg (163 lb) LMP 07/19/2022 (Exact Date) SpO2 99% BMI 32.92 kg/m PE: Pleasant, in no acute distress. Accompanied by her SKIN: erythematous rash of opposing surfaces below the abdominal panus. There are shallow ulcerations and slight indurated patches. incision is well approximated. ASSESSMENT/PLAN: 1. [place]tr[place] - ICD9: 695.89, ICD10: L30.4 Keep area dry. - NYSTATIN 100,000 UNIT/GRAM TOPICAL POWDER Keep a cloth like a handkerchief or shirt between the skin folds. - ABSCESS AND WOUND CULTURE WITH GRAM STAIN Alan Vargas MD documented in this encounter [facility] 06-03-2023 Miscellaneous Notes Patient called and states she is unable to come into office tomorrow for appointment. Patient states she will go to urgent care [facility] for evaluation. Bethany Adorno RN Needs appointment or to urgent care. Ok to work in if any openings for anyone. 1245 w RM tomorrow. Virtual ok if she prefers. Carole Quintero MD See photo update via [employer] today. Patient called in and reported redness and foul odor like yeast. Denies fevers or body aches. Please advise. Melisa Suarez RN Incision in pictures looks fine. Please find out why she thinks it is infected. C/S on 04/26. Last seen 05/09 for PP documented in this encounter [facility] 05-09-2023 Note HNO ID: [id number] Author: Lise Concepcion MD Service: ? Author Type: Physician Type: Progress Notes Filed: 05/17/2023 7:24 AM Note Text: Director Market Intelligence offered: Patient declines. Saud Simspon is a 22 year old female who presents for problem visit - vaginal bleeding and pain. HPI: Last BM was yesterday and it was a small, firm stool. Has had about 7 BM's since surgery. Passing flatus. No nausea or vomiting. No fevers or chills. Taking Miralax for constipation at this time. Having hard time staying hydrated. Struggling with constipation. Tolerating a diet and has a good appetite. She has lower abdominal pain. Bleeding increased 2 days ago. Bleeding has since slowed and is lessened today. Passed a plum sized clot last night. Has used 2 large pads daily. Feeling lightheaded and dizzy. OB History T2 L2 SAB4 IAB0 Ectopic0 Multiple0 Live Births2 Medical Language Specialist History LMP: 07/19/2022 (Exact Date), Recent Age at Menarche: Age at First : Age at Menopause: Medical Language Specialist History Comments: Sexual Activity: Yes; Male Contraception: Pill PAST MEDICAL HISTORY Diagnosis Date ADD (attention deficit disorder) ADHD (attention deficit hyperactivity disorder) Anemia Asthma Chlamydia Hypochondroplasia depression PAST SURGICAL HISTORY Procedure Laterality Date DELIVERY ONLY 12/15/2021 DELIVERY ONLY 04/26/2023 [facility] PAST SURGICAL HISTORY OF Right 11/26/2018 patellar stabilization and right knee meniscal repair FAMILY HISTORY Problem Relation Age of Onset Seizures Mother Heart Mother Seizures Father Kidney failure Father Alcohol abuse Father No Known Problems Sister No Known Problems Sister No Known Problems Sister other (deaf) Sister No Known Problems Brother Heart Brother Heart Maternal Grandmother Hypertension Maternal Grandmother Lipids Maternal Grandmother Stroke Maternal Grandmother Heart Maternal Grandfather Hypertension Maternal Grandfather Lipids Maternal Grandfather Heart Paternal Grandmother Hypertension Paternal Grandmother Lipids Paternal Grandmother Heart Paternal Grandfather Hypertension Paternal Grandfather Lipids Paternal Grandfather No Known Problems Daughter Social History Tobacco Use Smoking status: Never Smokeless tobacco: Never Vaping Use Vaping Use: Never used Substance Use Topics Alcohol use: Not Currently Comment: rare, once a month Drug use: No Current Outpatient Medications Medication Sig ibuprofen (MOTRIN) 600 mg tablet Take 1 tablet by mouth every 6 hours as needed for pain. FOR PAIN. polyethylene glycol 3350 17 gram/dose powder Take 17 g by mouth two times a day as needed for constipation. magnesium oxide (MAG-OX) 400 mg (241.3 mg magnesium) tablet Take 1 tablet by mouth once daily. prental multivitamin 27 mg iron- 800 mcg tablet Take 1 tablet by mouth once daily. BECLOMETHASONE DIPROPIONATE (QVAR INHALATION) Inhale as instructed. albuterol HFA (VENTOLIN HFA) 90 mcg/actuation inhaler Inhale 2 Puffs as instructed. albuterol 90 mcg/actuation Aero Inhale 2 Puffs as instructed three times daily as needed. FOR WHEEZING AND SHORTNESS OF BREATH. docusate sodium (COLACE) 100 mg capsule Take 1 capsule by mouth two times a day. No current facility-administered medications for this visit. Allergies As of Date: 05/09/2023 Allergen Noted Reaction AMOXICILLIN 12/16/2018 Hives CODEINE 03/03/2012 GI Upset Fully Assessed 05/09/2023 REVIEW OF SYSTEMS Abdomen: See HPI. Bladder: No dysuria, gross hematuria, urinary frequency, urinary urgency, or incontinence. Expanded ROS: N/A Allergies and current medication updated:Yes EXAM: BP 100/60 Wt 157 lb (71.2kg) LMP 07/19/2022 GENERAL: pleasant, female in no apparent distress HEENT: Normocephalic and atraumatic NECK: full range of motion DERMATOLOGY: Normal and without lesions CHEST: Normal inspiratory effort ABDOMEN: soft and no masses, +appropriately tender to palpation, non distended, no rebounding, no guarding, no rigidity. Incision is c/d/I. PELVIC: external genitalia normal, no vulvar lesions, no cervical lesions, normal appearing perineal body and perianal region, +minimal amount of dark red - brown blood present in vaginal vault, no heavy or active bleeding noted from cervical os BIMANUAL EXAM: Uterus appropriately tender, firm stool palpated along posterior vaginal wall NEURO: exam grossly non-focal EXTREMITIES: normal ASSESSMENT AND PLAN: Encounter Diagnosis ICD-10-CM 1. Constipation, unspecified constipation type K59.00 docusate sodium (COLACE) 100 mg capsule 2. state Z39.2 docusate sodium (COLACE) 100 mg capsule 3. Lightheadedness R42 CBC + DIFF 4. Dizziness R42 CBC + DIFF 5. Vaginal bleeding N93.9 Suspect pain secondary to constipation and normal post operative pain. Continue Tylenol and Ibuprofen PRN. Heat PRN. Taking Miralax PRN. St (more content not included)... [facility] 05-09-2023 History of Presen t illness Narrative Director Market Intelligence offered: Patient declines. Saud Simpson is a 22 year old female who presents for problem visit - vaginal bleeding and pain. HPI: Last BM was yesterday and it was a small, firm stool. Has had about 7 BM's since surgery. Passing flatus. No nausea or vomiting. No fevers or chills. Taking Miralax for constipation at this time. Having hard time staying hydrated. Struggling with constipation. Tolerating a diet and has a good appetite. She has lower abdominal pain. Bleeding increased 2 days ago. Bleeding has since slowed and is lessened today. Passed a plum sized clot last night. Has used 2 large pads daily. Feeling lightheaded and dizzy. OB History T2 L2 SAB4 IAB0 Ectopic0 Multiple0 Live Births2 Medical Language Specialist History LMP: 07/19/2022 (Exact Date), Recent Age at Menarche: Age at First : Age at Menopause: Medical Language Specialist History Comments: Sexual Activity: Yes; Male Contraception: Pill PAST MEDICAL HISTORY Diagnosis Date ADD (attention deficit disorder) ADHD (attention deficit hyperactivity disorder) Anemia Asthma Chlamydia Hypochondroplasia depression PAST SURGICAL HISTORY Procedure Laterality Date DELIVERY ONLY 12/15/2021 DELIVERY ONLY 04/26/2023 LTCS PAST SURGICAL HISTORY OF Right 11/26/2018 patellar stabilization and right knee meniscal repair FAMILY HISTORY Problem Relation Age of Onset Seizures Mother Heart Mother Seizures Father Kidney failure Father Alcohol abuse Father No Known Problems Sister No Known Problems Sister No Known Problems Sister other (deaf) Sister No Known Problems Brother Heart Brother Heart Maternal Grandmother Hypertension Maternal Grandmother Lipids Maternal Grandmother Stroke Maternal Grandmother Heart Maternal Grandfather Hypertension Maternal Grandfather Lipids Maternal Grandfather Heart Paternal Grandmother Hypertension Paternal Grandmother Lipids Paternal Grandmother Heart Paternal Grandfather Hypertension Paternal Grandfather Lipids Paternal Grandfather No Known Problems Daughter Social History Tobacco Use Smoking status: Never Smokeless tobacco: Never Vaping Use Vaping Use: Never used Substance Use Topics Alcohol use: Not Currently Comment: rare, once a month Drug use: No Current Outpatient Medications Medication Sig ibuprofen (MOTRIN) 600 mg tablet Take 1 tablet by mouth every 6 hours as needed for pain. FOR PAIN. polyethylene glycol 3350 17 gram/dose powder Take 17 g by mouth two times a day as needed for constipation. magnesium oxide (MAG-OX) 400 mg (241.3 mg magnesium) tablet Take 1 tablet by mouth once daily. prental multivitamin 27 mg iron- 800 mcg tablet Take 1 tablet by mouth once daily. BECLOMETHASONE DIPROPIONATE (QVAR INHALATION) Inhale as instructed. albuterol HFA (VENTOLIN HFA) 90 mcg/actuation inhaler Inhale 2 Puffs as instructed. albuterol 90 mcg/actuation Aero Inhale 2 Puffs as instructed three times daily as needed. FOR WHEEZING AND SHORTNESS OF BREATH. docusate sodium (COLACE) 100 mg capsule Take 1 capsule by mouth two times a day. No current facility-administered medications for this visit. Allergies As of Date: 05/09/2023 Allergen Noted Reaction AMOXICILLIN 12/16/2018 Hives CODEINE 03/03/2012 GI Upset Fully Assessed 05/09/2023 REVIEW OF SYSTEMS Abdomen: See HPI. Bladder: No dysuria, gross hematuria, urinary frequency, urinary urgency, or incontinence. Expanded ROS: N/A Allergies and current medication updated:Yes EXAM: BP 100/60 Wt 157 lb (71.2kg) LMP 07/19/2022 GENERAL: pleasant, female in no apparent distress HEENT: Normocephalic and atraumatic NECK: full range of motion DERMATOLOGY: Normal and without lesions CHEST: Normal inspiratory effort ABDOMEN: soft and no masses, +appropriately tender to palpation, non distended, no rebounding, no guarding, no rigidity. Incision is c/d/I. PELVIC: external genitalia normal, no vulvar lesions, no cervical lesions, normal appearing perineal body and perianal region, +minimal amount of dark red - brown blood present in vaginal vault, no heavy or active bleeding noted from cervical os BIMANUAL EXAM: Uterus appropriately tender, firm stool palpated along posterior vaginal wall NEURO: exam grossly non-focal EXTREMITIES: normal ASSESSMENT AND PLAN: Encounter Diagnosis ICD-10-CM 1. Constipation, unspecified constipation type K59.00 docusate sodium (COLACE) 100 mg capsule 2. state Z39.2 docusate sodium (COLACE) 100 mg capsule 3. Lightheadedness R42 CBC + DIFF 4. Dizziness R42 CBC + DIFF 5. Vaginal bleeding N93.9 Suspect pain secondary to constipation and normal post operative pain. Continue Tylenol and Ibuprofen PRN. Heat PRN. Taking Miralax PRN. Start Colace BID and prune or pear juice daily. Increase fluid intake. Suppository if needed. Vaginal bleeding appears appropriate on exam. No concern for infection based on exam. Check CBC with diff. RTO 6 week exam and as needed. Lise Concepcion DO Medical Decision Making: Problems: Low: 2+ self-limited or minor problems Data: Unique test(s) ordered: 1 Risk: Moderate: Drug management Medical Decision Making Level: 3 - Low documented in this encounter [facility] 05-07-2023 Miscellaneous Notes Offered patient appointment tomorrow-pt declined. She has appointments for her . Appointment given for 05/09/2023.Pt given bleeding precautions given. Pt to go to ER if bleeding increases, develops fever, palpitations , SOB or visual disturbances Please schedule patient for appointment tomorrow for evaluation due to symptomatic. If needed can go to ED. Constance Suarez APRN.CNM Patient had c/s 04/26. Calling because she started bleeding heavier with clots mid morning. Using poise diaper pads and has had to change it 3 times today so far. No chest pain or shortness of breath or fatigue. She is having dizziness. Having menstrual like cramping with it and abdomen is tender to touch. No fever or odor. Please advise. Mily Forrester RN documented in this encounter [facility] 05-06-2023 Note HNO ID: [id number] Author: Carole Quintero MD Service: ? Author Type: Physician Type: Progress Notes Filed: 05/06/2023 10:45 AM Note Text: EARLY VISIT Saud Simpson is a 22 year old here for 2 week visit. Delivery Summary: c/s 04/26/2023 ROS: General: Denies any fever or chills Hypertension Screening: Headache? Yes. Was it successfully treated with Tylenol? yes Visual Changes? No Epigastric Pain? No Increased Swelling? No Taking any BP medications at home? No If applicable, monitoring BP at home? (If Yes, include results) NA Mood: normal Depression: denies symptoms of depression. OB Depression and Anxiety Screening- This Encounter (since 05/05/2023) Over the past 2 weeks have you felt down, depressed, or hopeless? Negative Over the past two weeks, have you felt little interest or pleasure in doing things?? Negative Feeling nervous, anxious or on edge 1-Several days Not being able to stop or control worrying 1-Several days Anxiety Pre-Screening Total (If >/= 3 additional questions will be reviewed) 2 Feeding: Pumping problems: Inadequate milk supply Bladder: No dysuria, gross hematuria, urinary frequency, urinary urgency, or incontinence Bowel symptoms: Constipation, Negative for abdominal discomfort, blood in stools or black stools, and change in bowel habits Abdomen: She reports no incisional redness, tenderness, erythema Bleeding: light flow Bottom and Perineum: Hemorrhoids and soreness Sleep: no sleep concerns and sleeps in own bassinet/crib/bed in separate room, feels rested [place] since delivery: Not resumed Emotional support: Yes Exercise: N/A Other issues: Constipation, has been taking stool softeners, but not helping PHYSICAL EXAMINATION: BP 104/64 Wt 157 lb 3.2 oz (71.3 kg) LMP 07/19/2022 (Exact Date) Yes BMI 31.75 kg/m? General: pleasant,female in no apparent distress, AANDO x 3. Skin warm and intact. Breast: Deferred Abdomen: soft, non-tender, and no masses /Incision: No incisional redness, swelling, or drainage Pelvic: Deferred Bimanual: Deferred ASSESSMENT AND PLAN: 22 year old status post CS with normal course. Contraception plan: CONSIDERING OPTIONS . Reinforced 6-week pelvic rest. Encouraged condom usage should patient deviate. Education: resources provided - see MA/RN note Follow up: Return to Clinic for 6 week visit and as needed Carole Quintero MD [facility] 05-01-2023 Miscellaneous Notes Patient notified. MELISA SUAREZ RN She should take a stool softener daily and if needs- Miralax if unable to have BM. Sherin Decker APRN.CNM The pain medication was to be used the first 3 days home from hospital. I cannot give her any prescription for pain medications. She should still be rotating the Tylenol and Motrin and not skipping any doses. Sherin Decker APRN.CNM Patient delivered via c/s 04/26/23 with SW. Reports telling provider she did not want prescription pain medication going home but is now in pain rating it 7/10 and requesting a prescription. Pain is mostly in lower back, stabbing pain. Some abdominal cramping. Patient has been taking tylenol with little relief. Also reports constipation. Recommended over the counter stool softener. Asking if she can be prescribed something for pain. Please advise. Melisa Suarez RN documented in this encounter [facility] 04-26-2023 Note HNO ID: [id number] Author: Mily Forrester RN Service: ? Author Type: ? Type: Progress Notes Filed: 04/26/2023 2:53 PM Note Text: Patient delivered via by Dr. Concepcion on 04/26/23 at [facility]. See OB history. Mily Forrester RN [facility] 04-22-2023 History and physical note DATE OF SERVICE: April 22, 2023 PROBLEM: repeat section, desires sterilization DIAGNOSIS: as above PAST SURGICAL HISTORY: PAST SURGICAL HISTORY Procedure Laterality Date DELIVERY ONLY 12/15/2021 PAST SURGICAL HISTORY OF Right 11/26/2018 patellar stabilization and right knee meniscal repair PAST MEDICAL HISTORY: PAST MEDICAL HISTORY Diagnosis Date ADD (attention deficit disorder) ADHD (attention deficit hyperactivity disorder) Anemia Asthma Chlamydia Hypochondroplasia depression SUBJECTIVE: Irregular ctx's. Nothing regular so hard for her to keep track. SOCIAL HISTORY: Social History Tobacco Use Smoking status: Never Smokeless tobacco: Never Vaping Use Vaping Use: Never used Substance Use Topics Alcohol use: Not Currently Comment: rare, once a month Drug use: No ALLERGIES Allergen Reactions Amoxicillin Hives Codeine GI Upset Current Outpatient Medications on File Prior to Visit Medication Sig blood sugar diagnostic test strip 1 Strip four times daily. Use as instructed Lancets lancets 1 Each four times daily. Use as instructed magnesium oxide (MAG-OX) 400 mg (241.3 mg magnesium) tablet Take 1 tablet by mouth once daily. prental multivitamin 27 mg iron- 800 mcg tablet Take 1 tablet by mouth once daily. BECLOMETHASONE DIPROPIONATE (QVAR INHALATION) Inhale as instructed. albuterol HFA (VENTOLIN HFA) 90 mcg/actuation inhaler Inhale 2 Puffs as instructed. albuterol 90 mcg/actuation Aero Inhale 2 Puffs as instructed three times daily as needed. FOR WHEEZING AND SHORTNESS OF BREATH. aspirin, enteric coated (ECOTRIN LOW STRENGTH) 81 mg EC tablet Take 1 tablet by mouth once daily. No current facility-administered medications on file prior to visit. OBJECTIVE: VITALS: BP 100/60 Wt 174 lb 12.8 oz (79.3 kg) LMP 07/19/2022 (Exact Date) BMI 35.31 kg/m HEENT: Normocephalic, atraumatic, Mucus membranes moist without lesions. NECK: Soft and Supple. No adenopathy , thyromegaly or bruits. SKIN: No lesions. CHEST: No increased resp effort. HEART: Regular rate and rhythm. BACK: Nontender with no CVA tenderness. ABDOMEN: Soft, non-tender, non-distended, no masses, no hepatosplenomegaly. On Alli's baby felt to be breech presentation with buttock in the pelvis. Doppler with +FHT above umbilicus LOWER EXTREMITIES: There was no pitting edema, no palpable cords and no skin changes. ASSESSMENT: repeat section with sterilization PLAN: 1) Discussed r/b/a to repeat section with sterilization. She understands sterilization is permanent and irreversible. She is 100% certain she does not desire additional pregnancies in the future. She understands she is not a good TOLAC candidate given narrow pelvis and breech on exam today. Reviewed labor precautions and reasons to come in. Patient was just evaluated on L&D overnight. The rationale for the proposed surgery was discussed in addition to risks, benefits, and alternatives. General pre- and post-operative care was reviewed. Questions were answered. After discussion, the patient indicated a desire to proceed with the planned surgery. Lise Concepcion DO Medical Decision Making: Problems: Moderate: New problem with uncertain prognosis Risk: High: Decision on elective major surgery w/ risk factors Medical Decision Making Level: 4 - Moderate documented in this encounter [facility] 04-22-2023 Miscellaneous Notes SW- Feeling irregular ctx's q 6-11 min. No vb, lof. Good FM Pre op visit today documented in this encounter [facility] 04-22-2023 Instructions Torri Weiss MA - 04/22/2023 10:40 AM EDT SEQUENTIAL SCREENINGS The [facility] offers sequential screenings for women who are interested in screenings for chromosomal abnormalities and certain defects during a . The sequential screen combines ultrasound and blood tests to determine the risk of chromosomal abnormalities, including Down's Syndrome (Trisomy 21) and Trisomy 18, as well as open neural tube defects including spina bifida. Ultrasound examination is performed between 11 weeks and 13 weeks gestational age. Blood tests are drawn after the ultrasound and again later in the between 15 and 21 weeks gestational age. Please let your physician know if you are interested in this testing. It will require an appointment with our resource technician. This is not an ultrasound performed by a physician in our office during a routine visit. SIGNS AND SYMPTOMS OF LABOR 1. Contractions every 10 minutes or more often 2. Clear, pink, or brownish fluid (water) leaking from vagina 3. Feeling that baby is pushing down, pressure 4. Low, dull backache 5. Cramps that feel like a period 6. Cramps with or without diarrhea If you notice any of the above symptoms, contact our office at [phone] and ask to speak with a nurse. After hours, you can call doctors registry at [phone] OR call [facility] at [phone] and ask to have the doctor teradata solution architect paged. If you consider this an emergency, dial -2 or go to your nearest emergency department. NEED HELP? Are you dealing with a violent or abusive relationship? Are you a victim of rape or sexual assult? Call [facility] ([place]) 24 hour Crisis Hotline: 686.769.9350 or 614-944-3456. MANUAL Your Guide to a Healthy manual is now on-line. Visit [email or web address] to download your free copy documented in this encounter [facility] 04-22-2023 Note HNO ID: [id number] Author: Scott Walton Service: ? Author Type: ? Type: Progress Notes Filed: 04/22/2023 9:36 AM Note Text: POPULATION HEALTH NAVIGATION OUTREACH Action/FYI Spoke to patient added quality improvement consultant to OB provider field Patient Identified by Name and : YES, via phone Outreach Outcome/Action Spoke to patient / parent / legal guardian: No action required (information or reminder only) OB/PEDS field updated Did you use a PCP flex slot to schedule this appointment? N/A Reason for Outreach [place] Payer: Payor: [place] [employer] / Plan: [facility] MEDICAID / Product Type: Medicaid / Care Gap Reviewed:: N/A Reminder: Reminder note to check Health Maintenance for items below Health Maintenance items due: Covid-19 Vaccine(1) Never done Pneumococcal Vaccine(1 - PCV) due on 12/21/2005 Meningococcal B Vaccine: Consider Based On Risk(1 of 2 - Patient Seeks Protection) Never done Spirometry Never done Annual PCP Team Chronic Disease Visit Never done Depression Assessment Never done Navigation Signature: Scott Walton April 22, 2023 9:36 AM [facility] 04-22-2023 History of Presen t illness Narrative POPULATION HEALTH NAVIGATION OUTREACH Action/FYI Spoke to patient added quality improvement consultant to OB provider field Patient Identified by Name and : YES, via phone Outreach Outcome/Action Spoke to patient / parent / legal guardian: No action required (information or reminder only) OB/PEDS field updated Did you use a PCP flex slot to schedule this appointment? N/A Reason for Outreach Payer: Payor: [place] / Plan: [facility] MEDICAID / Product Type: Medicaid / Care Gap Reviewed:: N/A Reminder: Reminder note to check Health Maintenance for items below Health Maintenance items due: Covid-19 Vaccine(1) Never done Pneumococcal Vaccine(1 - PCV) due on 12/21/2005 Meningococcal B Vaccine: Consider Based On Risk(1 of 2 - Patient Seeks Protection) Never done Spirometry Never done Annual PCP Team Chronic Disease Visit Never done Depression Assessment Never done Navigation Signature: Scott Walton April 22, 2023 9:36 AM documented in this encounter [facility] 04-22-2023 Note Patient Outreach (NE TNAV) SAUD SIMPSON ([id number]) 89 F Date Time Provider Department 04/22/23 SCOTT WALTON NETNAV During your visit today, we recorded the following information about you: Scott Walton 04/22/2023 9:36 AM Signed POPULATION HEALTH NAVIGATION OUTREACH Action/ Spoke to patient added quality improvement consultant to OB provider field Patient Identified by Name and : YES, via phone Outreach Outcome/Action Spoke to patient / parent / legal guardian: No action required (information or reminder only) OB/PEDS field updated Did you use a PCP flex slot to schedule this appointment? N/A Reason for Outreach [place] Payer: Payor: [place] / Plan: [facility] MEDICAID / Product Type: Medicaid / Care Gap Reviewed:: N/A Reminder: Reminder note to check Health Maintenance for items below Health Maintenance items due: Covid-19 Vaccine(1) Never done Pneumococcal Vaccine(1 - PCV) due on 12/21/2005 Meningococcal B Vaccine: Consider Based On Risk(1 of 2 - Patient Seeks Protection) Never done Spirometry Never done Annual PCP Team Chronic Disease Visit Never done Depression Assessment Never done Navigation Signature: Scott Walton April 22, 2023 9:36 AM Allergies As of Date: 04/22/2023 Noted Allergy Reaction AMOXICILLIN 12/16/2018 4 - Hives CODEINE 03/03/2012 8 - GI Upset Date Reviewed: 04/19/2023 Reviewed by: Carole Quintero MD - Fully Assessed Prescriptions as of 04/22/2023 - blood sugar diagnostic test strip 1 Strip four times daily. Use as instructed - Lancets lancets 1 Each four times daily. Use as instructed - magnesium oxide (MAG-OX) 400 mg (241.3 mg magnesium) tablet Take 1 tablet by mouth once daily. - aspirin, enteric coated (ECOTRIN LOW STRENGTH) 81 mg EC tablet Take 1 tablet by mouth once daily. - prental multivitamin 27 mg iron- 800 mcg tablet Take 1 tablet by mouth once daily. - BECLOMETHASONE DIPROPIONATE (QVAR INHALATION) Inhale as instructed. - albuterol HFA (VENTOLIN HFA) 90 mcg/actuation inhaler Inhale 2 Puffs as instructed. - albuterol 90 mcg/actuation Aero Inhale 2 Puffs as instructed three times daily as needed. FOR WHEEZING AND SHORTNESS OF BREATH. 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 LOF No. CTXS some cramping, irreg . Movement: present. Other c/o: uncomfortable to walk, feels SOB due to size of abdomen. Some edema Medication list reviewed. Physical Exam See Flow Sheet Abd: soft, nontender, gravid Ext: edema: 1+ A/P 38w0d Estimated Date of Delivery: 05/03/23 f/u in 1 week or prn plans repeat c/s no evidence of labor. Carole Quintero M.D. documented in this encounter [facility] 04-19-2023 Instructions Dai Beltran Ma - 04/19/2023 9:46 AM EDT SEQUENTIAL SCREENINGS The [facility] offers sequential screenings for women who are interested in screenings for chromosomal abnormalities and certain defects during a . The sequential screen combines ultrasound and blood tests to determine the risk of chromosomal abnormalities, including Down's Syndrome (Trisomy 21) and Trisomy 18, as well as open neural tube defects including spina bifida. Ultrasound examination is performed between 11 weeks and 13 weeks gestational age. Blood tests are drawn after the ultrasound and again later in the between 15 and 21 weeks gestational age. Please let your physician know if you are interested in this testing. It will require an appointment with our resource technician. This is not an ultrasound performed by a physician in our office during a routine visit. SIGNS AND SYMPTOMS OF LABOR 1. Contractions every 10 minutes or more often 2. Clear, pink, or brownish fluid (water) leaking from vagina 3. Feeling that baby is pushing down, pressure 4. Low, dull backache 5. Cramps that feel like a period 6. Cramps with or without diarrhea If you notice any of the above symptoms, contact our office at [phone] and ask to speak with a nurse. After hours, you can call doctors registry at [phone] OR call [facility] at [phone] and ask to have the doctor teradata solution architect paged. If you consider this an emergency, dial 9--8 or go to your nearest emergency department. NEED HELP? Are you dealing with a violent or abusive relationship? Are you a victim of rape or sexual assult? Call [facility] ([place]) 24 hour Crisis Hotline: 326.703.6520 or 252-664-5366. MANUAL Your Guide to a Healthy manual is now on-line. Visit [email or web address] to download your free copy documented in this encounter [facility] 04-12-2023 Miscellaneous Notes S: Saud Simpson is a 22 year old female who presents at 37 weeks gestation for a routine visit. Just completed growth US - EFW 63%, and ALECIA 12. Positive movement. C/O increased pelvic pressure at times and round ligament patient that radiates into vagina. Denies headache, visual changes, chest pain, shortness of breath, vaginal bleeding, leakage of fluid, or dysuria. O: See flow sheet Gen: No apparent distress Abd: Gravid, nontender ASSESSMENT/PLAN: 1. with history of section, antepartum - ICD9: 654.23, ICD10: O34.219 (primary diagnosis) 2. 37 weeks gestation of - ICD9: V22.2, ICD10: Z3A.37 1) Labor precautions reviewed and when to call - Repeat C/S scheduled for 04/26/23 2) RTO 1 week or sooner if needed Sherin Decker APRN.CNM documented in this encounter [facility] 04-12-2023 Instructions Stella Acuna Ma - 04/12/2023 8:48 AM EDT SEQUENTIAL SCREENINGS The [facility] offers sequential screenings for women who are interested in screenings for chromosomal abnormalities and certain defects during a . The sequential screen combines ultrasound and blood tests to determine the risk of chromosomal abnormalities, including Down's Syndrome (Trisomy 21) and Trisomy 18, as well as open neural tube defects including spina bifida. Ultrasound examination is performed between 11 weeks and 13 weeks gestational age. Blood tests are drawn after the ultrasound and again later in the between 15 and 21 weeks gestational age. Please let your physician know if you are interested in this testing. It will require an appointment with our resource technician. This is not an ultrasound performed by a physician in our office during a routine visit. SIGNS AND SYMPTOMS OF LABOR 1. Contractions every 10 minutes or more often 2. Clear, pink, or brownish fluid (water) leaking from vagina 3. Feeling that baby is pushing down, pressure 4. Low, dull backache 5. Cramps that feel like a period 6. Cramps with or without diarrhea If you notice any of the above symptoms, contact our office at [phone] and ask to speak with a nurse. After hours, you can call doctors registry at [phone] OR call [facility] at [phone] and ask to have the doctor teradata solution architect paged. If you consider this an emergency, dial 9-1-0 or go to your nearest emergency department. NEED HELP? Are you dealing with a violent or abusive relationship? Are you a victim of rape or sexual assult? Call [facility] ([place]) 24 hour Crisis Hotline: 363.368.7585 or 995-401-4007. MANUAL Your Guide to a Healthy manual is now on-line. Visit [email or web address] to download your free copy documented in this encounter [facility] 03-14-2023 Miscellaneous Notes Faxed signed Breast pump order received from [facility]. To SW to sign. Mily Forrester RN documented in this encounter [facility] 03-14-2023 Miscellaneous Notes RR- VB No. LOF No. CTXS No. Movement: present. Other c/o: No. Medication list reviewed. Physical Exam See Flow Sheet Abd: soft, nontender, gravid Ext: edema: 1+ A/P 32w6d Estimated Date of Delivery: 05/03/23 unable to do 3 hr due to emesis, checking BS, just started yesterday f/u in 2 weeks or prn US today, final results pending, preliminary AGA w/ normal fluid. plans repeat c/s and tubal Risks, benefits and alternatives to sterilization have been discussed with the patient. She declines reversible options including LARC. She understands sterilization is permanent, irreversible, risks of failure, regret and ectopic. In addition she understands there are surgical risks as well. Her questions were answered to her satisfaction and consent was signed and considering, Title 19 signed Flu vaccine today Carole Quintero M.D. documented in this encounter [facility] 03-14-2023 Instructions Dai Beltran Ma - 03/14/2023 1:25 PM EDT SEQUENTIAL SCREENINGS The [facility] offers sequential screenings for women who are interested in screenings for chromosomal abnormalities and certain defects during a . The sequential screen combines ultrasound and blood tests to determine the risk of chromosomal abnormalities, including Down's Syndrome (Trisomy 21) and Trisomy 18, as well as open neural tube defects including spina bifida. Ultrasound examination is performed between 11 weeks and 13 weeks gestational age. Blood tests are drawn after the ultrasound and again later in the between 15 and 21 weeks gestational age. Please let your physician know if you are interested in this testing. It will require an appointment with our resource technician. This is not an ultrasound performed by a physician in our office during a routine visit. SIGNS AND SYMPTOMS OF LABOR 1. Contractions every 10 minutes or more often 2. Clear, pink, or brownish fluid (water) leaking from vagina 3. Feeling that baby is pushing down, pressure 4. Low, dull backache 5. Cramps that feel like a period 6. Cramps with or without diarrhea If you notice any of the above symptoms, contact our office at [phone] and ask to speak with a nurse. After hours, you can call doctors registry at [phone] OR call [facility] at [phone] and ask to have the doctor teradata solution architect paged. If you consider this an emergency, dial 9-1-9 or go to your nearest emergency department. NEED HELP? Are you dealing with a violent or abusive relationship? Are you a victim of rape or sexual assult? Call [facility] ([place]) 24 hour Crisis Hotline: 973.487.3695 or 681-661-7370. MANUAL Your Guide to a Healthy manual is now on-line. Visit [email or web address] to download your free copy documented in this encounter [facility] 03-08-2023 Miscellaneous Notes Patient notified that she will need to check her blood sugars 4 times a day. She will keep a log and notify provider of her results after the 2 weeks. Diana Anderson RN Done Brent Pathak MD Please approve testing supplies She would need to check her BS Brent Pathak MD Ob patient is 31w6d and has attempted to do the 3 hour GTT twice and has vomited both times. Patient does not want to complete the 3 hour GTT again and is asking what her options are. documented in this encounter [facility] 03-07-2023 Miscellaneous Notes Orders signed. Sherin Decker APRN.CNM Patient was at lab today to do 3 hr GTT and vomited. Will need new order filed so Pt can get it completed on another day. Order pended please review and file. Patient will need called to be scheduled when filed. Dai Beltran CMA documented in this encounter [facility] 03-05-2023 Note HNO ID: [id number] Author: Keyon Glover MD Service: ? Author Type: Physician Type: Progress Notes Filed: 03/05/2023 2:46 PM Note Text: Dr. Carole Quintero NAME: Saud Simpson CLINIC Number.: [id number] Date of : 2000 Date of Visit: March 05, [address] Quintero: Ms. Saud Simpson was seen for echocardiogram and pediatric cardiology consultation on March 05, 2023. She is a 22 year old woman, referred due to family history of CHD - hole in the heart in maternal grandfather that required surgical intervention. She has had genetic testing with NIPT and the results were negative. 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 Initial echocardiogram at 26 weeks gestation showed a normal heart though the aortic arch was suboptimally visualized and she thus returns today. echocardiogram on March 05, 2023 at 31 weeks 4 days gestation shows atrial situs solitus with levocardia. SVC and IVC return normally to the right atrium. The os of the coronary sinus opens normally to the right atrium. One right and one left pulmonary vein were seen returning normally into the left atrium. The atria were normal in size and there was normal right to left shunting at the atrial level. The left and right ventricles were normal in size and shortening. No ventricular hypertrophy. The ventricular septum appeared intact. Normal mitral and tricuspid valves without significant regurgitation. The left and right ventricular outflow tracts were widely patent. The aortic and ductal arches were widely patent. heart rate and rhythm were regular and no pericardial effusion was seen. Normal Doppler of umbilical artery, umbilical vein, ductus venosus. In summary, the echocardiogram today showed normal intracardiac anatomy with normal ventricular function and normal heart rate and rhythm. We discussed these findings with . Saud Simpson. In addition, the limitations of the echocardiogram and echocardiography in general, including the inability to exclude ASDs, some VSDs, minor valvar abnormalities, partial anomalous pulmonary venous return, persistent patent ductus arteriosus, and coarctation of the aorta, were explained. Based on these data we did not recommend any specific further or cardiac evaluation, though we would be happy to see her back should new concerns arise. Thank you for allowing me to participate in the care of your patient and please do not hesitate to contact me if I can be any further assistance. During this patient visit I have reviewed prior notes and imaging including from referring maternal medicine specialists, devoted time to counseling/coordination of care regarding results of the echocardiogram, clincal manifestations of the identified disease, prognosis, test results and treatment options, formulated and provided my recommendations to other caregivers by verbal and written communication as appropriate and assisted in coordination of care as needed. I spent a total of 55 minutes on the date of the service which included preparing to see the patient, [id number] patient care, completing clinical documentation, performing a medically appropriate examination, independently interpreting results (not separately reported), and communicating results to the patient/family/caregiver. Sincerely, Dr. Keyon Glover [facility] 03-05-2023 History of Presen t illness Narrative Dr. Carole Quintero NAME: Saud Simpson CLINIC Number.: [id number] Date of : 2000 Date of Visit: March 05, [address] Quintero: Ms. Saud Simpson was seen for echocardiogram and pediatric cardiology consultation on March 05, 2023. She is a 22 year old woman, referred due to family history of CHD - hole in the heart in maternal grandfather that required surgical intervention. She has had genetic testing with NIPT and the results were negative. 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 Initial echocardiogram at 26 weeks gestation showed a normal heart though the aortic arch was suboptimally visualized and she thus returns today. echocardiogram on March 05, 2023 at 31 weeks 4 days gestation shows atrial situs solitus with levocardia. SVC and IVC return normally to the right atrium. The os of the coronary sinus opens normally to the right atrium. One right and one left pulmonary vein were seen returning normally into the left atrium. The atria were normal in size and there was normal right to left shunting at the atrial level. The left and right ventricles were normal in size and shortening. No ventricular hypertrophy. The ventricular septum appeared intact. Normal mitral and tricuspid valves without significant regurgitation. The left and right ventricular outflow tracts were widely patent. The aortic and ductal arches were widely patent. heart rate and rhythm were regular and no pericardial effusion was seen. Normal Doppler of umbilical artery, umbilical vein, ductus venosus. In summary, the echocardiogram today showed normal intracardiac anatomy with normal ventricular function and normal heart rate and rhythm. We discussed these findings with Ms. Saud Simpson. In addition, the limitations of the echocardiogram and echocardiography in general, including the inability to exclude ASDs, some VSDs, minor valvar abnormalities, partial anomalous pulmonary venous return, persistent patent ductus arteriosus, and coarctation of the aorta, were explained. Based on these data we did not recommend any specific further or cardiac evaluation, though we would be happy to see her back should new concerns arise. Thank you for allowing me to participate in the care of your patient and please do not hesitate to contact me if I can be any further assistance. During this patient visit I have reviewed prior notes and imaging including from referring maternal medicine specialists, devoted time to counseling/coordination of care regarding results of the echocardiogram, clincal manifestations of the identified disease, prognosis, test results and treatment options, formulated and provided my recommendations to other caregivers by verbal and written communication as appropriate and assisted in coordination of care as needed. I spent a total of 55 minutes on the date of the service which included preparing to see the patient, [id number] patient care, completing clinical documentation, performing a medically appropriate examination, independently interpreting results (not separately reported), and communicating results to the patient/family/caregiver. Sincerely, Dr. Keyon Glover documented in this encounter [facility] 02-26-2023 Miscellaneous Notes Saud called me to reschedule her echo. She stated that her ride is unable to bring her. This is the 3rd time she has rescheduled.I encouraged her to call her insurance to secure a ride for her appt next week. She stated I do not use [employer] for rides, they are rude to me and told me that they would not give me a ride next time. I encouraged her to come to come to her appts. Support given documented in this encounter [facility] 02-05-2023 History of Presen t illness Narrative Patient identified by name and date of . Saud Simpson presents today for a vaccination of Tdap. Patient denies an allergy to latex: yes Patient denies a severe (life-threatening) allergy to a previous dose of Tdap, DTP, DTaP, DT or Td vaccine. Yes Patient denies history of epilepsy or neurological problems: Yes Patient is afebrile and denies being moderately or severely ill: Yes Patient denies history of Guillain-[place] Syndrome (a severe paralytic illness): Yes Tdap Adacel injection was given without incident. See immunizations for details of immunizations administered today. VIS sheet provided: Yes Provider Dr. Quintero was present in office at time of injection. Virginia Barr LPN documented in this encounter [facility] 02-05-2023 Miscellaneous Notes RR- VB No. LOF No. CTXS No. Movement: present. Other c/o: No. Medication list reviewed. Physical Exam See Flow Sheet Abd: soft, nontender, gravid Ext: edema: no A/P 27w4d Estimated Date of Delivery: 05/03/23 Labs: 28 week labs- vomited today. Reschedule 1 hr. Encouraged not to be fasting for this plans repeat c/s tdap today f/u in 3 weeks or prn. Carole Quintero M.D. documented in this encounter [facility] 02-05-2023 Instructions Virginia Barr LPN - 02/05/2023 8:22 AM EDT SEQUENTIAL SCREENINGS The [facility] offers sequential screenings for women who are interested in screenings for chromosomal abnormalities and certain defects during a . The sequential screen combines ultrasound and blood tests to determine the risk of chromosomal abnormalities, including Down's Syndrome (Trisomy 21) and Trisomy 18, as well as open neural tube defects including spina bifida. Ultrasound examination is performed between 11 weeks and 13 weeks gestational age. Blood tests are drawn after the ultrasound and again later in the between 15 and 21 weeks gestational age. Please let your physician know if you are interested in this testing. It will require an appointment with our resource technician. This is not an ultrasound performed by a physician in our office during a routine visit. SIGNS AND SYMPTOMS OF LABOR 1. Contractions every 10 minutes or more often 2. Clear, pink, or brownish fluid (water) leaking from vagina 3. Feeling that baby is pushing down, pressure 4. Low, dull backache 5. Cramps that feel like a period 6. Cramps with or without diarrhea If you notice any of the above symptoms, contact our office at [phone] and ask to speak with a nurse. After hours, you can call doctors registry at [phone] OR call [facility] at [phone] and ask to have the doctor teradata solution architect paged. If you consider this an emergency, dial 0--0 or go to your nearest emergency department. NEED HELP? Are you dealing with a violent or abusive relationship? Are you a victim of rape or sexual assult? Call [facility] ([place]) 24 hour Crisis Hotline: 800.857.5375 or 604-246-9051. MANUAL Your Guide to a Healthy manual is now on-line. Visit [email or web address] ancyGuide to download your free copy documented in this encounter [facility] 01-28-2023 History of Presen t illness Narrative NAME: Saud Simpson [facility] Number.: [id number] Date of : 2000 Date of Visit: January 28, 2023 Referring Provider: Luís Bland Dear Luís Bland, Consultation requested by Dr. Bland for an opinion regarding Saud Simpson. My final recommendations will be communicated back to the requesting physician by way of shared Medical record or letter to requesting physician via US mail. Ms. Saud Simpson was seen for echocardiogram and pediatric cardiology consultation on January 28, 2023. She is a 22 year old woman, at 26 weeks gestation referred due to family history of hole in the heart in maternal grandfather that required surgical intervention. She has had genetic testing with NIPT and the results were negative. 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 There is no other family history of congenital heart disease. Echocardiogram Summary: 1. Normal segmental cardiac anatomy. 2. Patent foramen ovale with normal intrauterine right to left flow. 3. Qualitatively normal right ventricular size and systolic function. 4. Qualitatively normal left ventricular size and systolic function. 5. Normal appearing ductal arch with normal flow velocities. Aortic arch was not visualized. 6. Normal heart rhythm and rate of 142 bpm. 7. No pericardial effusion. Please see full echocardiogram report for complete details. Assessment and Plan: In summary, the echocardiogram today showed normal intracardiac anatomy with normal ventricular function and normal heart rate and rhythm. However due to positioning, we were unable to image the aortic arch today. We discussed these findings with Ms. Saud Simpson. In addition, the limitations of the echocardiogram and echocardiography in general, including the inability to exclude ASDs, some VSDs, minor valvar abnormalities, partial anomalous pulmonary venous return, persistent patent ductus arteriosus, and coarctation of the aorta, were explained. Based on these data we recommend a repeat echocardiogram in 3-4 weeks. Thank you for allowing me to participate in the care of your patient and please do not hesitate to contact me if I can be any further assistance. I spent a total of 40 minutes on the date of the service which included preparing to see the patient, [id number] patient care, completing clinical documentation, obtaining and/or reviewing separately obtained history, counseling and educating the patient/family/caregiver, communicating with other HCPs (not separately reported), and communicating results to the patient/family/caregiver. Sincerely, Rupinder Juarez MD January 28, 2023 documented in this encounter [facility] 01-24-2023 Miscellaneous Notes SW- Add on visit for SCHULTZ. Headache started yesterday and it was in back of head earlier, and now a frontal pressure. Rated 4.5/10. Improved with Tylenol. No visual changes. No N/V. No sensitivity to light or sounds. Eating and drinking well. No ctx, vb, lof. Good FM. Reports she is not getting sleep at night PE: Gen- NAD, well appearing Abd- Soft, gravid, NT Ext- No edema, no hyper reflexia See flowsheet A/p 25 wk gestation - No evidence of pre e today - Discussed symptomatic measures for headaches in - Start magnesium - Keep scheduled follow up Lise Concepcion DO documented in this encounter [facility] 01-24-2023 Instructions Torri Weiss MA - 01/24/2023 2:13 PM EDT SEQUENTIAL SCREENINGS The [facility] offers sequential screenings for women who are interested in screenings for chromosomal abnormalities and certain defects during a . The sequential screen combines ultrasound and blood tests to determine the risk of chromosomal abnormalities, including Down's Syndrome (Trisomy 21) and Trisomy 18, as well as open neural tube defects including spina bifida. Ultrasound examination is performed between 11 weeks and 13 weeks gestational age. Blood tests are drawn after the ultrasound and again later in the between 15 and 21 weeks gestational age. Please let your physician know if you are interested in this testing. It will require an appointment with our resource technician. This is not an ultrasound performed by a physician in our office during a routine visit. SIGNS AND SYMPTOMS OF LABOR 1. Contractions every 10 minutes or more often 2. Clear, pink, or brownish fluid (water) leaking from vagina 3. Feeling that baby is pushing down, pressure 4. Low, dull backache 5. Cramps that feel like a period 6. Cramps with or without diarrhea If you notice any of the above symptoms, contact our office at [phone] and ask to speak with a nurse. After hours, you can call doctors registry at [phone] OR call [facility] at [phone] and ask to have the doctor teradata solution architect paged. If you consider this an emergency, dial 6-6-9 or go to your nearest emergency department. NEED HELP? Are you dealing with a violent or abusive relationship? Are you a victim of rape or sexual assult? Call [facility] ([place]) 24 hour Crisis Hotline: 331.688.8568 or 035-735-8824. MANUAL Your Guide to a Healthy manual is now on-line. Visit [email or web address] to download your free copy documented in this encounter [facility] 01-24-2023 Miscellaneous Notes Patient notified. Still has headache now. Appointment given for today. Mily Forrester RN Recommend BP check if SCHULTZ not improving - Ok to come in whenever 25w6d Patient calling with a c/o headache in the back of her head. Pain rate of 4-5. Denies dizziness or vision changes. Feeling more fatigued. Pain was worse yesterday. Took x2 Tylenol with minimal relief and used a cool washcloth yesterday. Has not tried Tylenol today. Encouraged to take Tylenol and drink a caffeine beverage. She's had 50 floz of water today. Eating fine. Please advise. Diana Anderson RN documented in this encounter [facility] 01-08-2023 Miscellaneous Notes RM-Pt doing well. Denies vaginal Bleeding, Leaking fluid, or regular Contractions. Pt reports good movement. Some random cramping that started yesterday in the lower pelvis. Keeping up on water and has not taken any medication for the cramping. Physical Exam: Gen: no apparent distress Abd: soft, Gravid. Non tender to palpation. See flow sheet RTO 4 weeks Belinda Barrett APRN.PROJECT CONTROL OFFICER documented in this encounter [facility] 01-08-2023 Instructions s Stella Skinner - 01/08/2023 8:59 AM EDT SEQUENTIAL SCREENINGS The [facility] offers sequential screenings for women who are interested in screenings for chromosomal abnormalities and certain defects during a . The sequential screen combines ultrasound and blood tests to determine the risk of chromosomal abnormalities, including Down's Syndrome (Trisomy 21) and Trisomy 18, as well as open neural tube defects including spina bifida. Ultrasound examination is performed between 11 weeks and 13 weeks gestational age. Blood tests are drawn after the ultrasound and again later in the between 15 and 21 weeks gestational age. Please let your physician know if you are interested in this testing. It will require an appointment with our resource technician. This is not an ultrasound performed by a physician in our office during a routine visit. SIGNS AND SYMPTOMS OF LABOR 1. Contractions every 10 minutes or more often 2. Clear, pink, or brownish fluid (water) leaking from vagina 3. Feeling that baby is pushing down, pressure 4. Low, dull backache 5. Cramps that feel like a period 6. Cramps with or without diarrhea If you notice any of the above symptoms, contact our office at [phone] and ask to speak with a nurse. After hours, you can call doctors registry at [phone] OR call [facility] at [phone] and ask to have the doctor teradata solution architect paged. If you consider this an emergency, dial 7-6-5 or go to your nearest emergency department. NEED HELP? Are you dealing with a violent or abusive relationship? Are you a victim of rape or sexual assult? Call [facility] ([place]) 24 hour Crisis Hotline: 671.261.8731 or 459-455-0994. MANUAL Your Guide to a Healthy manual is now on-line. Visit [email or web address] [email or web address] to download your free copy documented in this encounter [facility] 12-11-2022 Miscellaneous Notes DM-Pt doing well. Denies vaginal Bleeding, Leaking fluid, or regular Contractions. Pt reports good movement Physical Exam: Gen: female in no apparent distress Abd: soft, Gravid. Non tender to palpation. See flow sheet A/P: @ 19.4 weeks- wanted to schedule anatomy us - no preference on provider. 1) SW teradata solution architect at 39 weeks- will give OR booking sheet for 39 weeks 2) MFM today for anatomy us 3) RTO Scheduled in 4 weeks Rahel Venegas MD documented in this encounter [facility] 12-11-2022 Instructions Cathleen Mora Ma - 12/11/2022 10:12 AM EDT SEQUENTIAL SCREENINGS The [facility] offers sequential screenings for women who are interested in screenings for chromosomal abnormalities and certain defects during a . The sequential screen combines ultrasound and blood tests to determine the risk of chromosomal abnormalities, including Down's Syndrome (Trisomy 21) and Trisomy 18, as well as open neural tube defects including spina bifida. Ultrasound examination is performed between 11 weeks and 13 weeks gestational age. Blood tests are drawn after the ultrasound and again later in the between 15 and 21 weeks gestational age. Please let your physician know if you are interested in this testing. It will require an appointment with our resource technician. This is not an ultrasound performed by a physician in our office during a routine visit. SIGNS AND SYMPTOMS OF LABOR 1. Contractions every 10 minutes or more often 2. Clear, pink, or brownish fluid (water) leaking from vagina 3. Feeling that baby is pushing down, pressure 4. Low, dull backache 5. Cramps that feel like a period 6. Cramps with or without diarrhea If you notice any of the above symptoms, contact our office at [phone] and ask to speak with a nurse. After hours, you can call doctors registry at [phone] OR call [facility] at [phone] and ask to have the doctor teradata solution architect paged. If you consider this an emergency, dial 9-1-1 or go to your nearest emergency department. NEED HELP? Are you dealing with a violent or abusive relationship? Are you a victim of rape or sexual assult? Call [facility] ([facility] 24 hour Crisis Hotline: 103.637.3772 or 193-704-9979. MANUAL Your Guide to a Healthy manual is now on-line. Visit [email or web address] ancyGuide to download your free copy documented in this encounter [facility] 10-22-2022 Miscellaneous Notes Called Saud Simpson and identified by name and date of . Saud Simpson was informed of negative Non-Invasive Testing (NIPT) results for Trisomy 21, Trisomy 18 and Trisomy 13. Patient was also notified of the result of no sex chromosome aneuploidy detected. Patient wishes to know sex, which is reported as: male to Bertha patient's mother, per patient request. Reviewed with patient Saud Simpson that NIPT is considered screening and not diagnostic, so this result greatly reduces, but does not eliminate the chance that the fetus could have trisomy 21, trisomy 18, trisomy 13 or sex chromosome aneuploidy. Saud Simpson indicated understanding this information. Patient advised to follow up with AFP neural tube defect screening (blood draw) at 16-18 weeks gestation and 18-20 week detailed anatomy ultrasound. Also instructed to follow-up with Primary OB Provider. Pauline Weems Ma documented in this encounter [facility] 10-18-2022 Miscellaneous Notes Patient notified. Diana Anderson RN It is probably OK but in general in I recommend a well balanced diet and just the PNV. Have her bring what she wants to take to her next visit so we can review exactly what she wants to use. Brent Pathak MD 11w6d Patient asking if Floyd Nutritional drink is safe to take during . It's a superfood supplement. [email or web address] documented in this encounter [facility] 10-16-2022 History of Presen t illness Narrative Maternal Medicine Consult Note Requested by: Jose COKER Reporting: Note/evaluation from today sent to requesting provider via shared medical record. 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 During her prior , she was evaluated by genetics at [facility] and notes were available for review in Care Everywhere. She denies a history of short-stature or skeletal dysplasia in any first degree relatives. She has not been followed by specialists for a skeletal dysplasia to date. She had genetic testing in her prior with a skeletal dysplasia panel that noted multiple variants of unknown significance in genes for autosomal recessive conditions with no second variant found (discussion of results in notes; lab result not available for review). Counseling at that time documented that her genetic testing was not formally diagnostic and that she could have mutation-negative hypochondroplasia or another underlying skeletal dysplasia not covered by the testing panel. Clinical follow-up was recommended for the patient and her . Her prior was also notable for early onset FGR (~31 weeks) with primary LTCD at 37w0d secondary to abnormal UA Dopplers (records unavailable for review). She says that her had a weight of 4#15 and has been followed clinically with normal growth to date. She denies a history of hypertensive disorders of , GDM, or other obstetric complications. Her OB history is also notable for 4 early SABs with the same partner. She denies a history of arterial or venous thromboembolism. Her past medical and surgical histories are notable for anxiety/depression (previously on SSRI therapy) and a prior knee surgery. She reports no significant gynecologic history and denies fibroids, dysplasia requiring conization, or other gynecologic conditions or surgeries. She reports a history of congenital heart disease in multiple half-siblings (lesion unknown). She otherwise denies any personal or family history of significant genetic diagnoses for herself or her partner. She denies tobacco, alcohol or illicit substance abuse. She has an allergy to amoxicillin (hives). Her current mediations include vitamins. She reported feeling well overall today and denied constitutional symptoms, shortness of breath, chest pain, palpitations, pleurisy, abdominal pain, nausea, vomiting, dysuria, vaginal bleeding, leakage of fluid, or calf pain. ROS is otherwise negative as below. PAST MEDICAL HISTORY Diagnosis Date ADD (attention deficit disorder) ADHD (attention deficit hyperactivity disorder) Anemia Asthma Chlamydia Hypochondroplasia depression PAST SURGICAL HISTORY Procedure Laterality Date DELIVERY ONLY 12/15/2021 PAST SURGICAL HISTORY OF Right 11/26/2018 patellar stabilization and right knee meniscal repair Family History Problem Relation Age of Onset Seizures Mother Heart Mother Seizures Father Kidney failure Father Alcohol abuse Father No Known Problems Sister No Known Problems Sister No Known Problems Sister other (deaf) Sister No Known Problems Brother Heart Brother Heart Maternal Grandmother Hypertension Maternal Grandmother Lipids Maternal Grandmother Stroke Maternal Grandmother Heart Maternal Grandfather Hypertension Maternal Grandfather Lipids Maternal Grandfather Heart Paternal Grandmother Hypertension Paternal Grandmother Lipids Paternal Grandmother Heart Paternal Grandfather Hypertension Paternal Grandfather Lipids Paternal Grandfather No Known Problems Daughter Current Outpatient Medications Medication Sig Dispense Refill prental multivitamin 27 mg iron- 800 mcg tablet Take 1 tablet by mouth once daily. BECLOMETHASONE DIPROPIONATE (QVAR INHALATION) Inhale as instructed. albuterol 90 mcg/actuation Aero Inhale 2 Puffs as instructed three times daily as needed. FOR WHEEZING AND SHORTNESS OF BREATH. albuterol HFA (VENTOLIN HFA) 90 mcg/actuation inhaler Inhale 2 Puffs as instructed. No current facility-administered medications for this visit. ALLERGIES Allergen Reactions Amoxicillin Hives Codeine GI Upset Review Of Systems: General: negative for fatigue, unintentional weight gain or loss, fever, chills Skin: negative for ulceration, rash, hair changes, nail changes Eyes: negative for double vision, loss of vision, itching. Ears/Nose/Throat: negative for deafness, epistaxis and frequent URI's Respiratory: negative for shortness of breath, wheezing, pleurisy Cardiovascular: negative for chest pain, pressure, palpitations Gastrointestinal: negative for abdominal pain, nausea, emesis, diarrhea Genitourinary: negative for frequency, hematuria, dysuria, flank pain, vaginal bleeding Neurologic: negative for syncope, seizures, weakness, gait problems, numbness. Musculoskeletal: negative for joint pain, joint swelling, no muscle weakness Psychiatric: negative for sleep disturbance, anxiety, depression, suicidal or homicidal ideation Hematologic/Lymphatic/Immunologi c: negative for anemia, bleeding, bruising Endocrine: negative for heat or cold intolerance, polydipsia, polyuria Physical Exam: BP 98/60 Wt 157 lb 6.4 oz (71.4 kg) LMP 07/19/2022 (Exact Date) BMI 31.79 kg/m General: Alert, oriented x 3, NAD. HEENT: Normocephalic, atraumatic, mucous membranes moist, sclerae anicteric. Thyroid: Normal size, non-tender, no nodules. CV: RRR, normal S1S2 without murmur/gallops. Pulmonary: CTAB without wheezes/rales. Abdominal: Soft, non-tender, non-distended without rebound or guarding. Extremities: Non-tender, no erythema or edema. Skin: no rash or skin changes. OB: US today - no visualized malformations, normal NT (see report for details). Records/Labs: Available records reviewed in EMR and Care Everywhere Impression: Cross gestation at 11w4d History of FGR/abnormal Dopplers Clinical diagnosis of skeletal dysplasia/suspected hypochondroplasia History of LTCD Depression Family history of congenital heart disease History of recurrent loss Plan: During consultation today we discussed the following recommendations for her care: History of FGR/abnormal Dopplers We reviewed her history of FGR along with the risks/implications for her current . We discussed potential etiologies of FGR including genetic factors (placental mosaicism or genetic etiology), congential/ infections, chronic medical comorbidities (hypertension, diabetes, autoimmune disease, APLS, renal disease), or exposure to medications/drugs among other etiologies. We discussed the risk of recurrence of FGR in her current . Regarding an approach to management, we reviewed the recommendation for: early US confirmation of gestational age (completed), genetic screening/testing as desired (see below), ASA prophylaxis (ordered today), a detailed anatomic survey at 18-20 weeks, and serial assessment of growth (every 4 weeks starting at 24 weeks gestation). Reviewed that additional surveillance recommendations would be made if FGR is diagnosed during . Clinical diagnosis of skeletal dysplasia/suspected hypochondroplasia We reviewed her history of a suspected skeletal dysplasia/suspected hypochondroplasia along with the risks implications. We reviewed that her prior genetic testing was not diagnostic for a specific skeletal dysplasia but contained multiple VUSs in autosomal recessive conditions. We reviewed that hypochondroplasia is caused by an autosomal dominant mutation in the FGFR3 gene, and has similar but generally milder clinical manifestations than achondroplasia with some similar radiologic findings. We reviewed that she may have mutation-negative hypochondroplasia, however she may also have a different skeletal dysplasia that was not included in her prior testing or related to any change in VUS status since her prior testing was completed/reported. Recommend obtaining results of her prior genetic testing, and recommend referral to genetics at [facility] for ongoing discussion/counseling and evaluation/testing if desired/indicated. Discussed potential for transmission of skeletal dysplasia to her children, which would be based on the mode of inheritance of the specific dysplasia (though could be as high as 50% if autosomal dominant). Also reviewed that some skeletal dysplasias may have non-skeletal manifestations/health implications, and reviewed that additional evaluations may be indicated based on the specific skeletal dysplasia identified. History of LTCD Reviewed her history of LTCD along with the risks/implications for her current . Risk of PAS discussed and recommend detailed assessment of placental location/appearance at the midtrimester anatomic survey. We discussed mode of delivery and reviewed the risks/benefits of TOLAC versus RCD. We discussed the risks of RCD including the surgical risks (bleeding, infection, injury to adjacent organs, transfusion) as well as the implications for future pregnancies (subsequent delivery by RCD, risk of placenta accreta spectrum disorder). We also reviewed the risks of TOLAC including the risk of uterine rupture of ~0.5-0.9% and a 10-15% risk of adverse maternal or outcome in the context of rupture. We also reviewed that short-stature may increase her risk of a failed TOLAC attempt. Patient considering options and recommend ongoing discussion with advancing gestational age. Depression We reviewed the implications depression during . She currently denies any symptoms of major depressive disorder including suicidal/homicidal ideation. Risks/benefits of antidepressants (SSRI) were reviewed including the association with a withdrawal syndrome and persistent pulmonary hypertension of the . The maternal/ risks of untreated maternal depression were also discussed. At his time she does not desire pharmacotherapy. Availability of psychology/psychiatry services in our system and locally were reviewed. Reviewed the increased risk of depression in women with a history of depression. Recommend serial mood evaluation in and close monitoring for depression (early PP visit). Genetics Age related risks of aneuploidy discussed along with options for aneuploidy screening or diagnostic genetic testing. NT normal today. With discussion she desires NIPS which was ordered. Availability of carrier screening was reviewed (declined). Referral to genetics placed for ongoing discussion of suspected skeletal dysplasia as above. Family history of congenital heart disease We reviewed that patients with a family history of congential heart diease have an increased risk of congenital heart disease in their children. Recommend a detailed midtrimester anatomic survey and a echocardiogram at 20-22 weeks gestation. History of recurrent loss We reviewed her history of recurrent loss along with potential etiologies. Patient referred to genetics as above. Parental karyotypes and APLS testing should be considered. OB precautions reviewed. First trimester counseling provided. All patient questions were addressed to her satisfaction today. Thank you for your referral to Maternal Medicine. At this point I recommended ongoing routine OB care with you. I would be happy to see Ms. Simpson again if any questions arise. Sincerely, Luís Bland MD I spent a total of 60 minutes on the date of the service which included preparing to see the patient, [id number] patient care, completing clinical documentation, obtaining and/or reviewing separately obtained history, performing a medically appropriate examination, counseling and educating the patient/family/caregiver, ordering medications, tests, or procedures, communicating results to the patient/family/caregiver, and care coordination (not separately reported). documented in this encounter [facility] 10-16-2022 Miscellaneous Notes Addended by: DAI BELTRAN MA on: 10/16/2022 11:09 AM Modules accepted: Orders RR- VB No. LOF No. CTXS No. Movement: absent. Other c/o: No. Medication list reviewed. Physical Exam See Flow Sheet Abd: soft, nontender, gravid Ext: edema: Trace A/P 11w4d Estimated Date of Delivery: 05/03/23 Labs: PN labs and NIPT today F/u in 4 weeks or prn Anatomy US ordered Doing well nausea valenzuela, off meds . Carole Quintero M.D. documented in this encounter [facility] 10-16-2022 Instructions Dai Beltran Ma - 10/16/2022 10:29 AM EDT SEQUENTIAL SCREENINGS The [facility] offers sequential screenings for women who are interested in screenings for chromosomal abnormalities and certain defects during a . The sequential screen combines ultrasound and blood tests to determine the risk of chromosomal abnormalities, including Down's Syndrome (Trisomy 21) and Trisomy 18, as well as open neural tube defects including spina bifida. Ultrasound examination is performed between 11 weeks and 13 weeks gestational age. Blood tests are drawn after the ultrasound and again later in the between 15 and 21 weeks gestational age. Please let your physician know if you are interested in this testing. It will require an appointment with our resource technician. This is not an ultrasound performed by a physician in our office during a routine visit. SIGNS AND SYMPTOMS OF LABOR 1. Contractions every 10 minutes or more often 2. Clear, pink, or brownish fluid (water) leaking from vagina 3. Feeling that baby is pushing down, pressure 4. Low, dull backache 5. Cramps that feel like a period 6. Cramps with or without diarrhea If you notice any of the above symptoms, contact our office at [phone] and ask to speak with a nurse. After hours, you can call doctors registry at [phone] OR call [facility] at [phone] and ask to have the doctor teradata solution architect paged. If you consider this an emergency, dial 2-2-7 or go to your nearest emergency department. NEED HELP? Are you dealing with a violent or abusive relationship? Are you a victim of rape or sexual assult? Call [facility] ([place]) 24 hour Crisis Hotline: 961.124.6570 or 648-857-3568. MANUAL Your Guide to a Healthy manual is now on-line. Visit [email or web address] to download your free copy documented in this encounter [facility] 09-13-2022 Miscellaneous Notes Initial risk assessment form submitted 09/13/22 Marla Cedillo RN documented in this encounter [facility] 09-12-2022 Miscellaneous Notes Patient seen for NOB. at 6.5 weeks gestation. She is a transfer of care from [facility]. She has a history of section at 37 weeks for IUGR with elevated cord dopplers. She desires a repeat section. Patient diagnosed with hypochondroplasia syndrome and dwarfism. See progress notes. Sherin Decker APRN.CNM documented in this encounter [facility] 09-12-2022 History of Presen t illness Narrative Images from the original note were not included. INITIAL OB ASSESSMENT OB Provider: Sherin Decker CNM HPI: Saud Simpson is a 21 year old female here to establish Obstetrical Care. Patient's last menstrual period was 07/19/2022 (exact date). from OB Dating Form. Cycle length: every 28 day last 4-5 days. Heavy not painful cycles Complaints: nausea and vomiting was unplanned but accepted. OB History T1 L1 SAB4 IAB0 Ectopic0 Multiple0 Live Births1 Prior : yes x 1- maternal dwarfism, decelerations, IUGR- elevated cord dopplers 37 weeks gestation History of 4th degree laceration: No Patient's Risk Screening for delivery: some contractions around 30 weeks/ celestone x 2 History of abnormal pap: No Prior treatment for cervical dysplasia: none. 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 albuterol HFA (PROAIR HFA) 90 mcg/actuation inhaler Inhale 2 Puffs as instructed every 6 hours as needed. Rvmeycglnjsczbj-Mgclpswup-XK (BROMFED DM) 2-30-10 mg/5 mL syrup Take 10 mL by mouth four times daily as needed. (Patient not taking: Reported on 09/06/2022) ondansetron orally disintegrating (ZOFRAN ODT) 4 mg disintegrating tablet Take 1 tablet by mouth every 8 hours as needed. (Patient not taking: Reported on 09/06/2022) sertraline (ZOLOFT) 100 mg tablet Take 100 mg by mouth once daily. (Patient not taking: Reported on 09/06/2022) Desogestrel-Ethinyl Estradiol (APRI) 0.15-0.03 mg per tablet Take 1 tablet by mouth once daily. (Patient not taking: Reported on 07/20/2022) meloxicam (MOBIC) 15 mg tablet Take 1 tablet by mouth once daily. (Patient not taking: Reported on 09/06/2022) BECLOMETHASONE DIPROPIONATE (QVAR INHALATION) Inhale as instructed. albuterol HFA (VENTOLIN HFA) 90 mcg/actuation inhaler Inhale 2 Puffs as instructed. albuterol 90 mcg/actuation Aero Inhale 2 Puffs as instructed three times daily as needed. FOR WHEEZING AND SHORTNESS OF BREATH. No current facility-administered medications on file prior to visit. Review of Systems: GENERAL: Negative for: Fever or Chills and Positive for: Fatigue HEENT: Negative for: Headache, Impaired Vision, Ringing in Ears, Nosebleeds NECK: Negative for: Swelling, Pain, Stiffness RESPIRATORY: Negative for: Cough, Shortness of breath, Wheezing/ HX ASTHMA- uses inhalier GASTROINTESTINAL: Negative for: Heartburn, Constipation, Diarrhea, Blood in stool, Vomiting, Positive for: Nausea and Vomiting, and Positive for: Heartburn MUSCULOSKELETAL: Negative for: Muscle or joint pain, stiffness, Joint swelling NEUROLOGIC/PSYCHIATRIC: Negative for: Weakness, Paralysis, Numbness, Tingling, Tremor, Memory loss History of anxiety - PPD, no medications- history of counseling SKIN: Negative for: Rash, Itching GENITOURINARY: Negative for: vaginal itching, vaginal discharge, hematuria or dysuria and Positive for: urinary frequency PHYSICAL EXAM: BP 104/62 Wt 171 lb (77.6kg) LMP 07/19/2022 GENERAL: pleasant female in no apparent distress DERMATOLOGY: Normal and without lesions NECK: Supple and full range of motion CHEST: Normal inspiratory effort BREAST: soft, non-tender, symmetric, no dominant mass, normal nipple-areolar complex, no lymphadenopathy, and no nipple discharge ABDOMEN: soft, non-tender, and no masses NEURO: alert and oriented x3,exam grossly non-focal PELVIS: External genitalia normal without lesions. Perineal body intact. No vaginal or cervical lesions. Cervix closed. Uterus 6 week size. No adnexal masses or tenderness. Clinical Pelvimetry: Pelvimetry clinically assessed as adequate Limited OB ultrasound exam: single intrauterine , positive cardiac activity, and crown-rump length 6.5 weeks OB Risk Screening: Completed, positive findings include: Patient answered 'Yes' to other abnormalities of the uterus not otherwise mentioned. See comments in OB Risk Screening. SBIRT Saud Simpson was given the 4's screening tool. Saud answered as follows: OB Opioid Screening - Last Recorded (since 12/16/2021) Did any of your parents have a problem with alcohol or other drug use? Yes Father-ETOH Does your partner have a problem with alcohol or other drug use? No In the past, have you had difficulties in your life because of alcohol or other drugs, including prescription medications? No In the past month have you drunk any alcohol or used other drugs? No Are you taking medication for pain during the either prescribed or not? No Based on the screen and further questions, she is considered at Low risk due to:No past or current use. Positive reinforcement of current behavior. Sherin Decker APRN.CNM ASSESSMENT/PLAN: 1. Encounter for supervision of normal in multigravida - ICD9: V22.1, ICD10: Z34.80 (primary diagnosis) 2. 6 weeks gestation of - ICD9: V22.2, ICD10: Z3A.01 3. 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 Maternal care due to low transverse uterine scar from previous delivery - ICD9: 654.20, ICD10: O34.211 5. with history of section, antepartum - ICD9: 654.23, ICD10: O34.219 6. Nausea and vomiting in - ICD9: 643.90, ICD10: O21.9 7. Asthma, unspecified asthma severity, unspecified whether complicated, unspecified whether persistent - ICD9: 493.90, ICD10: J45.909 8. Short stature - ICD9: 783.43, ICD10: R62.52 9. History of prior with IUGR - ICD9: V13.29, ICD10: Z87.59 10. History of uterine anomaly - ICD9: V13.29, ICD10: Z87.718 PLAN: 1) Patient oriented to practice. - CONSULT TO MATERNAL MEDI Discussed nutrition, folic acid supplementation, dietary guidelines, exercise, smoking, alcohol, caffeine, and drug use. Discussed routine OB labs including STD/HIV. Discussed aneuploidy screening options including serum screening and nuchal translucency. Desires NT and MATERNIT 21 CF carrier screening discussed and declined. 2) History of cesearan section, patient counseled on trial of labor versus repeat cesearan section, patient plans Repeat Section Follow up in 4 weeks or sooner prn. Sherin Decker APRN.CNM documented in this encounter [facility] 09-12-2022 Instructions Ernie Franks Cma - 09/12/2022 8:42 AM EDT Please select the following link to access the [facility] Your Guide to a Healthy . [email or web address] documented in this encounter [facility] 09-06-2022 Miscellaneous Notes DISTANCE HEALTH VISIT This Team Access Model visit is a phone encounter. It required patient-provider interaction for the medical decision making as documented below. Saud Simpson is a 21 year old female seen for PNOB. Patient states that she has been seen at the care center. She is 6 para 1 with a history of 4 miscarriages. She did have pinkish-brown spotting on August 28 that lasted for 2 days. Denies any bleeding since August 31. Denies any pain this . She delivered her previous child December 15, 2021 at [facility] by Dr. Garcia. This was a for IUGR, elevated cord Dopplers, and maternal hypochondroplasia. Patient states she was told that she would have a repeat if she was to get again. Desires repeat by Dr. Paredes. History of IUGR with previous .Patient is complaining of nausea and occasional vomiting in . Dietary considerations discussed . Vitamin B6 recommended. Advised patient to call/come in if she is unable to keep any food or fluids down in a 24-hour period. Patient states she had a heart-shaped uterus. Patient has a history of hypochondroplasia. Saw genetic counselor at [facility] on September 05. Patient has a history of anxiety and depression diagnosed at age 13 and most recently treated by Dr. Lance Garcia. She states she also had depression. She states she stopped her Zoloft March 13, 2022 and believes she is doing well off medication. Discussed increased risks of depression during and and importance of reporting the development or worsening of symptoms should they occur. Pt denies having any suicidal thoughts since age 14. Patient's sister born with congenital deafness. Maternal grandmfather and maternal first cousin born with an abnormality involving the elbows-unable to extend. Niece born with a ventral wall defect and congenital heart defect, specific diagnosis not available.Lexa Felton RN documented in this encounter [facility] 09-06-2022 History of Presen t illness Narrative # 1 - Date: 2019, Sex: None, Weight: None, GA: None, Delivery: None, Apgar1: None, Apgar5: None, Living: None, Comments: None # 2 - Date: 10/2020, Sex: None, Weight: None, GA: None, Delivery: None, Apgar1: None, Apgar5: None, Living: None, Comments: None # 3 - Date: 02/2021, Sex: None, Weight: None, GA: None, Delivery: None, Apgar1: None, Apgar5: None, Living: None, Comments: None # 4 - Date: 05/2021, Sex: None, Weight: None, GA: None, Delivery: None, Apgar1: None, Apgar5: None, Living: None, Comments: None # 5 - Date: 12/15/21, Sex: Female, Weight: 4 lb 15 oz (2.24 kg), GA: 37w0d, Delivery: , Low Transverse, Apgar1: None, Apgar5: None, Living: Living, Comments: treated for Chlamydia in early ,C Section done due to IUGR, elevated cord Dopplers,maternal hypochondroplasia # 6 - Date: None, Sex: None, Weight: None, GA: None, Delivery: None, Apgar1: None, Apgar5: None, Living: None, Comments: None documented in this encounter [facility] 08-31-2022 Miscellaneous Notes Noted Brent Pathak MD Patient had spoken with Dining Car Steward on 08/23/2022 regarding brown spotting. Note was routed to PSR pool instead of nursing. Patient has PNOB scheduled 09/06 and NOB 09/12/2021. I called patient and she said she only had the brown spotting when she wiped once. Denies any further bleeding. Denies ever having pain. Patient is advised to call/come in if bleeding reoccurs, the development of pain or prn problems. FYI. documented in this encounter [facility] 08-23-2022 Miscellaneous Notes Call placed to patient to triage for new OB appt. Name and identified. LMP? 07/19/2022 PNV? yes Cats? no Pelvic pain? no Vaginal bleeding? Light brown spotting Precautions for both discussed with patient understanding. Any issues that can effect the ? PCOS Office patient wishes to establish care to? [facility] [place] Will forward this encounter to the schedulers in this office. ----- Message from Rema Murillo Pss sent at 08/23/2022 8:16 AM EST ----- Regarding: [facility] Contact: Patient has been identified by name and Date of : Yes Patient: Saud Simpson Date of : 2000 Provider for this encounter : i ob navigator No primary care provider on file. Reason for call: pt 5 weeks saus she has pcos Was an appointment scheduled: No Reason for requesting visit (RFV/signs and symptoms/diagnosis) : [facility] ob navigator Person calling: self Return call to: self Call patient at: on cell [phone] (home) [phone] (cell) Payor: [place] [employer]ICA[employer] / Plan: [facility] MEDICAID / Product Type: Medicaid / Rema Murillo Pss documented in this encounter [facility] 07-20-2022 History of Presen t illness Narrative This note was created using [employer] Venues[employer]. Subjective Saud Simpson is a 21 year old female. HPI Patient presents with cough, congestion, fever, body aches and chills for 2 days. She was around her mom and baby who had cold symptoms. She has not has covid previously. No diarrhea. She was vomiting last night. She has kept gatorade down today. She had also taken two tests which were negative today. She has a 7 month old baby currently. Not . No otc meds taken. Review of Systems Constitutional: Positive for chills, fatigue and fever. HENT: Positive for congestion, ear pain, sinus pressure and sore throat. Respiratory: Positive for cough and shortness of breath. Negative for wheezing. Cardiovascular: Negative. Gastrointestinal: Positive for nausea and vomiting. Negative for abdominal pain and diarrhea. Genitourinary: Negative. Musculoskeletal: Positive for myalgias. Neurological: Positive for headaches. All other systems reviewed and are negative. PAST MEDICAL HISTORY Diagnosis Date ADD (attention deficit disorder) ADHD (attention deficit hyperactivity disorder) Asthma Current Outpatient Medications Medication Sig Dispense Refill sertraline (ZOLOFT) 100 mg tablet Take 100 mg by mouth once daily. meloxicam (MOBIC) 15 mg tablet Take 1 tablet by mouth once daily. 30 tablet 1 BECLOMETHASONE DIPROPIONATE (QVAR INHALATION) Inhale as instructed. albuterol HFA (PROAIR HFA) 90 mcg/actuation inhaler Inhale 2 Puffs as instructed every 6 hours as needed. 1 Each 0 Vaoriqlzmkzqczf-Cjmskyjut-HQ (BROMFED DM) 2-30-10 mg/5 mL syrup Take 10 mL by mouth four times daily as needed. 200 mL 0 ondansetron orally disintegrating (ZOFRAN ODT) 4 mg disintegrating tablet Take 1 tablet by mouth every 8 hours as needed. 12 tablet 0 Desogestrel-Ethinyl Estradiol (APRI) 0.15-0.03 mg per tablet Take 1 tablet by mouth once daily. (Patient not taking: Reported on 07/20/2022) 84 tablet 3 albuterol HFA (VENTOLIN HFA) 90 mcg/actuation inhaler Inhale 2 Puffs as instructed. albuterol 90 mcg/actuation Aero Inhale 2 Puffs as instructed three times daily as needed. FOR WHEEZING AND SHORTNESS OF BREATH. No current facility-administered medications for this visit. PAST SURGICAL HISTORY Procedure Laterality Date DELIVERY ONLY 12/15/2021 PAST SURGICAL HISTORY OF Right 11/26/2018 patellar stabilization and right knee meniscal repair FAMILY HISTORY Problem Relation Age of Onset Seizures Mother Heart Mother Seizures Father Heart Maternal Grandmother Hypertension Maternal Grandmother Lipids Maternal Grandmother Stroke Maternal Grandmother Heart Maternal Grandfather Hypertension Maternal Grandfather Lipids Maternal Grandfather Heart Paternal Grandmother Hypertension Paternal Grandmother Lipids Paternal Grandmother Heart Paternal Grandfather Hypertension Paternal Grandfather Lipids Paternal Grandfather Social History Tobacco Use Smoking status: Never Smokeless tobacco: Never Vaping Use Vaping Use: Never used Substance Use Topics Alcohol use: Yes Comment: rare, once a month Drug use: No Objective BP 130/82 Pulse 116 Temp 37.6 C (99.7 F) (Tympanic) Resp 18 Wt 76.1 kg (167 lb 12.8 oz) LMP 03/09/2022 (Exact Date) SpO2 100% BMI 33.89 kg/m Physical Exam Vitals reviewed. Constitutional: Appearance: Normal appearance. HENT: Head: Normocephalic and atraumatic. Right Ear: Tympanic membrane, ear canal and external ear normal. Left Ear: Tympanic membrane, ear canal and external ear normal. Nose: Congestion present. Mouth/Throat: Mouth: Mucous membranes are moist. Pharynx: Oropharynx is clear. Cardiovascular: Rate and Rhythm: Normal rate and regular rhythm. Heart sounds: Normal heart sounds. Pulmonary: Effort: Pulmonary effort is normal. Breath sounds: Normal breath sounds. Musculoskeletal: Cervical back: Neck supple. Skin: General: Skin is warm and dry. Findings: No rash. Neurological: General: No focal deficit present. Mental Status: She is alert. Assessment and Plan ASSESSMENT/PLAN: 1. Viral URI with cough - ICD9: 465.9, ICD10: J06.9 - Discussed viral etiology and rationale for treatment. - Symptomatic treatment with prn analgesia - Supportive care with fluids and rest - Follow up in 3-5 days if symptoms persist or sooner if worsening of symptoms - COVID WITH FLUA+B, ROUTINE Elisha Arteaga PA-C documented in this encounter [facility] 11-03-2021 Note Attestation signed by Natalie Haynes MD at 11/03/2021 2:01 PM I independently saw and evaluated the patient. I agree with the findings and plan of care as documented in the resident's note. 20 yr old at 31 0/7 GA with the following: Concerns for growth restriction and iREDF in OB office, reviewed her records and EDC of 01/05/22 by 9 week scan performed 06/02/21 and I spoke with Dr. Garcia who also confirmed this is her EDC. testing performed in OB office yesterday was concerning for iREDF. In review of her records last ultrasound on 10/30/21 with [facility] overall growth 34th and AC 14th, today overall 31st and AC at the 11th normal Doppler exam. S/p BMZ X one and repeat planned at 1999. This can be done at [facility] so the patient can be discharged to home. Her follow up ultrasound appointment is with [facility] 12/11/21 in [place]. Would prefer that she have her follow up in one place as opposed to both in our office and his OB office. No further testing is warranted at this time giv and no Doppler examinations are warranted. Defer final plan to Dr. Garcia and I spoke with him this am about the plan as well and reviewed all the recent scans with him over the phone Maternal skeletal dysplasia seen by genetics at [facility] and the couple has a good understanding of inheritance so far with normally grown fetus doubt issues currently, but we talked briefly about mode of delivery today and I am concerned that she may have a small inlet and outlet of her pelvis with her maternal skeletal dysplasia and although a vaginal can be attempted this may not be in her best interest if the baby is > 5 pounds and I talked with her and Dr. Garcia about this. I also recommend a anesthesia consult to assess the spinal anatomy prior to her delivery planning. Defer final decision about mode of delivery to Dr Garcia but offered a follow up consultation at the time of her ultrasound on 12/11/21 and he will let me know if this is desired. The patient is very open to whatever is safest for the baby and we talked about timing of delivery at 39 weeks if otherwise normal growth. Her significant other and her Mother were present today I spent 30 minutes in the visit today on the floor reviewing the chart, discussing the case with the residency staff and nursing and planning discharge for today with Dr. Jose Haynes MD Department of Obstetrics and Gynecology [facility] Discharge Summary Admission on 11/02/2021 6:07 PM Saud Simpson is a 20 y.o. at 31w0d who is admitted as a transport from [place] for FGR with intermittent reverse end diastolic flow on UA doppler. She received her first dose of BMZ on 11/02. Cat I FHT on monitor. Repeat growth US on 11/03 with [facility] US showed AGA growth with normal UA dopplers. Result was discussed with patient. She will go to [place] for her 2nd dose of BMZ at 6-8 pm, and follow up outpatient with Dr. Garcia for OB care. Meds: Medication List CONTINUE taking these medications albuterol (5 MG/ML) 0.5% nebulizer solution Commonly known as: PROVENTIL 1+1 PO Discharge to: Home Discharge date: 11/03/2021 Discharge Dx: Recurrent loss, asthma, anxiety/ADHD Follow up appointment with your doctor/leasing director - Keep next scheduled appointment Activity - Normal Activity Call your doctor/leasing director if you have: - leaking fluid - vaginal bleeding - regular contractions: More than 6 contractions in one hour - decreased movement - worsening abdominal (belly) pain - headache, blurry vision, increased swelling, upper abdominal pain Kaia Hale MD on 11/03/2021 at 12:15 PM [facility] 08-10-2021 Note Maternal Medic ine consultation report/ genetic counseling Consultation requested by . Reason for consultation: The patient has been sent to discuss anatomy and potential for hypochondroplasia. Pertinent historic points: History of aneuploidy is declined. 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 Previous genetic testing and screening: declined* MFM at [facility] ultrasound findings: 1. Single living intrauterine with biometry consistent with clinical dates. 2. Anatomical survey was adequately visualized and appeared normal. The long bones appear normal in architecture without deformities and/or fracture. The skull, hands and feet appear normal. 3. Amniotic fluid appeared normal. 4. Placenta is anterior. 5. Transvaginal cervical length to evaluate for risk for labor was performed and appeared normal, 36 mm. The findings have been discussed in full detail along with the implications of each finding. The patient's questions have been answered. Discussion and counseling regarding the patient's history and US findings: - Discussion of the findings and risks: The different skeletal dysplasia were discussed and their US appearance. Her molecular diagnosis of hypochondroplasia needs confirmation. The normal appearance of the bones and normal measurements are reassuring. However, anomalies like achondroplasia show bone shortening past 26 weeks. Therefore, serial evaluation of the skeleton is indicated.. - Differential diagnosis: Normal bone development or potential bone growth lag later. - Discussion regarding the difference in test sensitivity between noninvasive and invasive genetic testing (amniocentesis). The risks associated with amniocentesis were discussed. - General genetic recommendations: o Noninvasive genetic testing o Invasive testing: genetic amniocentesis o Expanded genetic screening o Ultrasound Plan and recommendations: 1. Maternal Follow up with medical genetics to confirm the diagnosis of hypochondroplasia. 2. The patient declined non invasive and invasive genetic testing 3. 3. US at 26 weeks, 30 weeks, and 36 weeks for growth and long bone evaluation. 4. 4. echocardiogram. Her brother has CHD. 5. 5. Post delivery evaluation of the Chart review and preparation: 10 minutes. Face to face: 10 minutes. Documentation and care coordination: 10 minutes. Total time spent on patient care today: 30 minutes. Marc Alejandro MD [facility] 03-03-2012 History of Past i llness Narrative Problem Noted Date Resolved Date Menometrorrhagia 03/03/2012 12/10/2013 documented as of this encounter (statuses as of 07/20/2022) [facility]09-[facility] History of Past illness Narrative* Problem Noted Date Resolved Date Menometrorrhagia 03/03/2012 12/10/2013 documented as of this encounter (statuses as of 08/23/2022) [facility] History of Past illness Narrative* Problem Noted Date Resolved Date Menometrorrhagia 03/03/2012 12/10/2013 documented as of this encounter (statuses as of 08/31/2022) [facility] History of Past illness Narrative* Problem Noted Date Resolved Date Menometrorrhagia 03/03/2012 12/10/2013 documented as of this encounter (statuses as of 09/07/2022) [address] History of Past illness Narrative* Problem Noted Date Resolved Date Menometrorrhagia 03/03/2012 12/10/2013 documented as of this encounter (statuses as of 09/12/2022) [address] History of Past illness Narrative* Problem Noted Date Resolved Date Menometrorrhagia 03/03/2012 12/10/2013 documented as of this encounter (statuses as of 09/13/2022) [address] History of Past illness Narrative* Problem Noted Date Resolved Date Menometrorrhagia 03/03/2012 12/10/2013 documented as of this encounter (statuses as of 10/16/2022) [address] History of Past illness Narrative* Problem Noted Date Resolved Date Menometrorrhagia 03/03/2012 12/10/2013 documented as of this encounter (statuses as of 10/16/2022) [address] History of Past illness Narrative* Problem Noted Date Resolved Date Menometrorrhagia 03/03/2012 12/10/2013 documented as of this encounter (statuses as of 10/19/2022) [address] History of Past illness Narrative* Problem Noted Date Resolved Date Menometrorrhagia 03/03/2012 12/10/2013 documented as of this encounter (statuses as of 10/23/2022) [address] History of Past illness Narrative* Problem Noted Date Resolved Date Menometrorrhagia 03/03/2012 12/10/2013 documented as of this encounter (statuses as of 12/11/2022) [address] History of Past illness Narrative* Problem Noted Date Diagnosed Date Resolved Date Menometrorrhagia 03/03/2012 12/10/2013 documented as of this encounter (statuses as of 01/02/2023) [address] History of Past illness Narrative* Problem Noted Date Diagnosed Date Resolved Date Menometrorrhagia 03/03/2012 12/10/2013 documented as of this encounter (statuses as of 01/08/2023) [address] History of Past illness Narrative* Problem Noted Date Diagnosed Date Resolved Date Menometrorrhagia 03/03/2012 12/10/2013 documented as of this encounter (statuses as of 01/24/2023) [address] History of Past illness Narrative* Problem Noted Date Diagnosed Date Resolved Date Menometrorrhagia 03/03/2012 12/10/2013 documented as of this encounter (statuses as of 01/25/2023) [address] History of Past illness Narrative* Problem Noted Date Diagnosed Date Resolved Date Menometrorrhagia 03/03/2012 12/10/2013 documented as of this encounter (statuses as of 01/29/2023) [address] History of Past illness Narrative* Problem Noted Date Diagnosed Date Resolved Date Menometrorrhagia 03/03/2012 12/10/2013 documented as of this encounter (statuses as of 02/05/2023) [address] History of Past illness Narrative* Problem Noted Date Diagnosed Date Resolved Date Menometrorrhagia 03/03/2012 12/10/2013 documented as of this encounter (statuses as of 02/26/2023) [address] History of Past illness Narrative* Problem Noted Date Diagnosed Date Resolved Date Menometrorrhagia 03/03/2012 12/10/2013 documented as of this encounter (statuses as of 03/06/2023) [address] History of Past illness Narrative* Problem Noted Date Diagnosed Date Resolved Date Menometrorrhagia 03/03/2012 12/10/2013 documented as of this encounter (statuses as of 03/07/2023) [address] History of Past illness Narrative* Problem Noted Date Diagnosed Date Resolved Date Menometrorrhagia 03/03/2012 12/10/2013 documented as of this encounter (statuses as of 03/08/2023) [address] History of Past illness Narrative* Problem Noted Date Diagnosed Date Resolved Date Menometrorrhagia 03/03/2012 12/10/2013 documented as of this encounter (statuses as of 03/15/2023) [address] History of Past illness Narrative* Problem Noted Date Diagnosed Date Resolved Date Menometrorrhagia 03/03/2012 12/10/2013 documented as of this encounter (statuses as of 03/15/2023) [address] History of Past illness Narrative* Problem Noted Date Diagnosed Date Resolved Date Menometrorrhagia 03/03/2012 12/10/2013 documented as of this encounter (statuses as of 04/12/2023) [address] History of Past illness Narrative* Problem Noted Date Diagnosed Date Resolved Date Menometrorrhagia 03/03/2012 12/10/2013 documented as of this encounter (statuses as of 04/12/2023) [address] History of Past illness Narrative* Problem Noted Date Diagnosed Date Resolved Date Menometrorrhagia 03/03/2012 12/10/2013 documented as of this encounter (statuses as of 04/19/2023) [address] History of Past illness Narrative* Problem Noted Date Diagnosed Date Resolved Date Menometrorrhagia 03/03/2012 12/10/2013 documented as of this encounter (statuses as of 04/22/2023) [address] History of Past illness Narrative* Problem Noted Date Diagnosed Date Resolved Date Menometrorrhagia 03/03/2012 12/10/2013 documented as of this encounter (statuses as of 04/22/2023) [address]2012 History of Past illness Narrative* Problem Noted Date Diagnosed Date Resolved Date Menometrorrhagia 03/03/2012 12/10/2013 documented as of this encounter (statuses as of 05/02/2023) [address]2012 History of Past illness Narrative* Problem Noted Date Diagnosed Date Resolved Date Menometrorrhagia 03/03/2012 12/10/2013 documented as of this encounter (statuses as of 05/08/2023) [address]2012 History of Past illness Narrative* Problem Noted Date Diagnosed Date Resolved Date Menometrorrhagia 03/03/2012 12/10/2013 documented as of this encounter (statuses as of 05/17/2023) [address]2012 History of Past illness Narrative* Problem Noted Date Diagnosed Date Resolved Date Menometrorrhagia 03/03/2012 12/10/2013 documented as of this encounter (statuses as of 06/04/2023) [address] History of Past illness Narrative* Problem Noted Date Diagnosed Date Resolved Date Menometrorrhagia 03/03/2012 12/10/2013 documented as of this encounter (statuses as of 06/04/2023) [facility] History of Past illness Narrative* Problem Noted Date Diagnosed Date Resolved Date Menometrorrhagia 03/03/2012 12/10/2013 documented as of this encounter (statuses as of 08/06/2023) [facility] Diagnosis affected by growth restriction documented in this encounter [facility] Work Phone: Evaluation note* Diagnosis Viral URI with cough- Primary Acute upper respiratory infections of unspecified site [facility] Diagnosis Supervision of high risk , antepartum- Primary Previous recurrent miscarriages affecting , antepartum Short interval between pregnancies affecting , antepartum with history of section, antepartum Short stature Hypochondroplasia Chondrodystrophy History of prior with IUGR History of uterine anomaly Other anomalies of uterus Nausea and vomiting in Unspecified vomiting of , unspecified as to episode of care History of depression Personal history of other mental disorder Family history of defects Family history of congenital anomalies [facility] Diagnosis Encounter for supervision of normal in multigravida- Primary 6 weeks gestation of state, incidental Hypochondroplasia syndrome Chondrodystrophy Maternal care due to low transverse uterine scar from previous delivery with history of section, antepartum Hypochondroplasia Chondrodystrophy Nausea and vomiting in Unspecified vomiting of , unspecified as to episode of care Asthma, unspecified asthma severity, unspecified whether complicated, unspecified whether persistent Short stature History of prior with IUGR History of uterine anomaly Other anomalies of uterus Family history of defects Family history of congenital anomalies [facility] Diagnosis Maternal care due to low transverse uterine scar from previous delivery- Primary with history of section, antepartum 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, incidental [facility]* Diagnosis Encounter for (NT) nuchal translucency scan- Primary Other specified screening Encounter for supervision of normal in multigravida 6 weeks gestation of state, incidental Hypochondroplasia syndrome Chondrodystrophy Maternal care due to low transverse uterine scar from previous delivery Encounter for screening for nuchal translucency [facility] Diagnosis Encounter for anatomic survey- Primary Obesity complicating , second trimester 19 weeks gestation of state, incidental [facility] Diagnosis Short interval between pregnancies affecting , antepartum- Primary with history of section, antepartum Hypochondroplasia syndrome Chondrodystrophy 19 weeks gestation of state, incidental [facility] Diagnosis Encounter for follow-up ultrasound of anatomy- Primary 22 weeks gestation of state, incidental Other obesity due to excess calories affecting in second trimester [facility]* Diagnosis 23 weeks gestation of - Primary state, incidental with history of section, antepartum Rh negative state in antepartum period Rhesus isoimmunization affecting management of mother, antepartum condition [facility]* Diagnosis with history of section, antepartum- Primary Short interval between pregnancies affecting , antepartum 25 weeks gestation of state, incidental headache in second trimester [facility]* Diagnosis abnormality affecting management of mother, single or unspecified fetus- Primary Encounter for screening for cardiovascular disorders Screening for other and unspecified cardiovascular conditions 26 weeks gestation of state, incidental [facility]* Diagnosis PREV DELIVERY [734.23]- Primary Previous delivery, antepartum condition or complication 27 weeks gestation of state, incidental [facility]* Diagnosis Maternal care for (suspected) abnormality and damage, unspecified, fetus 1- Primary [facility]* Diagnosis Abnormal glucose- Primary Other abnormal glucose [facility]* Diagnosis Abnormal maternal glucose tolerance, antepartum- Primary [facility]* Diagnosis Diet controlled gestational diabetes mellitus (GDM) in third trimester- Primary 32 weeks gestation of state, incidental PREV DELIVERY [654.23] Previous delivery, antepartum condition or complication Supervision of other high risk pregnancies, third trimester Need for influenza vaccination Need for prophylactic vaccination and inoculation against influenza [facility] Diagnosis Encounter for ultrasound to check growth- Primary Encounter for routine screening for malformation using ultrasonics Supervision of other high risk pregnancies, third trimester Hypochondroplasia syndrome Chondrodystrophy 37 weeks gestation of state, incidental [facility]* Diagnosis with history of section, antepartum- Primary 37 weeks gestation of state, incidental [facility]* Diagnosis Supervision of other high risk pregnancies, third trimester- Primary 38 weeks gestation of state, incidental [facility] Diagnosis 38 weeks gestation of - Primary state, incidental Supervision of other high risk pregnancies, third trimester Breech presentation, single or unspecified fetus History of section Other postprocedural status Obesity in Obesity complicating , childbirth, or the puerperium, unspecified as to episode of care or not applicable Request for sterilization [facility]* Diagnosis Constipation, unspecified constipation type- Primary state Routine follow-up Lightheadedness Dizziness and giddiness Dizziness Dizziness and giddiness Vaginal bleeding Other specified noninflammatory disorder of vagina [facility]* Diagnosis Intertrigo- Primary Other specified erythematous condition [facility]* Diagnosis depression- Primary Mental disorders of mother, Menorrhagia with regular cycle Excessive or frequent menstruation care and examination Routine follow-up Encounter for initial prescription of contraceptive pills General counseling for prescription of oral contraceptives documented [facility] [facility] Diagnosis Screen for STD (sexually transmitted disease)- Primary Screening examination for venereal disease Exposure to sexually transmitted disease (STD) Contact with or exposure to other communicable diseases [facility] Instructions* Kaia Hale MD - 11/03/2021 Follow up appointment with your doctor/leasing director - Keep next scheduled appointment Activity - Normal Activity Call your doctor/leasing director if you have: - leaking fluid - vaginal bleeding - regular contractions: More than 6 contractions in one hour - decreased movement - worsening abdominal (belly) pain - headache, blurry vision, increased swelling, upper abdominal pain If you are going home with contractions that are uncomfortable/painful- we recommend these coping strategies: rhythmic breathing, hydrotherapy, imagery or visualization, gentle massage, walking and changing your position. Treatment Verification: Saud Simpson was assessed on Labor and Delivery for a related visit on 11/03/21. Kaia Hale MD [facility] documented in this encounterSUMMA Work Phone: Reason for referral (narrative)* Diagnostic Procedure Only (Routine) - Closed Specialty Diagnoses / Procedures Referred By Heather chung Referred To Contact [facility] Diagnoses Encounter for follow-up ultrasound of anatomy Procedures OBSTETRIC ULTRASOUND WHI US PREG UTERUS AFTER 1ST TRIMEST GESTATION Constance Suarez APRN.CNM [address] [place] [address] [facility] [address] [facility] [place] [address] Referral ID Status Reason Start Date Expiration Date V isits Requested Visits Authorized [id number] Closed Auto-Generate d Referral 01/01/2023 01/01/2024 1 1 [facility] Summary Purpose Family History No Family History Records FoundNo Family History Records FoundNo Family History Records FoundNo Family History Records FoundNo Family History Records FoundNo Family History Records Found Advance Directives No Advanced Directives Records FoundLatest Code Status on File Code Status Date Activated Date Inactivated Comments Full Code 11/02/2021 7:11 PM Health Concerns Infection Onset Date Last Indicated Resolved Time COVID-19 Rule-Out 07/20/2022 07/20/2022 Problem Noted Date OB Reminders 09/12/2022 Problem Noted Date OB Reminders 09/12/2022 Problem Noted Date OB Reminders 09/12/2022 Problem Noted Date OB Reminders 09/12/2022 Problem Noted Date OB Reminders 09/12/2022 Problem Noted Date OB Reminders 09/12/2022 Problem Noted Date OB Reminders 09/12/2022 Problem Noted Date OB Reminders 09/12/2022 Problem Noted Date Diagnosed Date OB Reminders 09/12/2022 Problem Noted Date Diagnosed Date OB Reminders 09/12/2022 Problem Noted Date Diagnosed Date OB Reminders 09/12/2022 Problem Noted Date Diagnosed Date OB Reminders 09/12/2022 Problem Noted Date Diagnosed Date OB Reminders 09/12/2022 Problem Noted Date Diagnosed Date OB Reminders 09/12/2022 Problem Noted Date Diagnosed Date OB Reminders 09/12/2022 Problem Noted Date Diagnosed Date OB Reminders 09/12/2022 Problem Noted Date Diagnosed Date OB Reminders 09/12/2022 Problem Noted Date Diagnosed Date OB Reminders 09/12/2022 Problem Noted Date Diagnosed Date OB Reminders 09/12/2022 Problem Noted Date Diagnosed Date OB Reminders 09/12/2022 Problem Noted Date Diagnosed Date OB Reminders 09/12/2022 Problem Noted Date Diagnosed Date OB Reminders 09/12/2022 Problem Noted Date Diagnosed Date OB Reminders 09/12/2022 Reason for Referral Specialty Diagnoses / Procedures Referred By Heather chung Referred To Contact Diagnoses 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 Procedures CONSULT TO MATERNAL MEDI OFFICE/OUTPATIENT NEW HIGH MDM 60-74 MINUTES Sherin Decker APRN.CNM [address] [place] [address] Referral ID Status Reason Start Date Expiration Date Visits Requested Visits Authorized [id number] Authorized PCP Requested Referral Auto-Generate d Referral 09/12/2022 09/12/2023 1 1 Specialty Diagnoses / Procedures Referred By Heather chung Referred To Contact [facility] Diagnoses Encounter for supervision of normal in multigravida 6 weeks gestation of Procedures NUCHAL TRANSLUCENCY WHI US NUCHAL TRANSLUCENCY 1ST GESTATION Sherin Decker APRN.CNM [address] [place] [address] [facility] [address] [place] [address] Referral ID Status Reason Start Date Expiration Date Visits Requested Visits Authorized [id number] Authorized Auto-Generat ed Referral 09/12/2022 09/12/2023 1 1 Specialty Diagnoses / Procedures Referred By Heather chung Referred To Contact [facility] Diagnoses Encounter for supervision of normal in multigravida 6 weeks gestation of Procedures OBSTETRIC ULTRASOUND WHI US PREG UTERUS AFTER 1ST TRIMEST GESTATION Sherin Decker APRN.[facility] [address] [place] [address] [id number] [place] [address] Referral ID Status Reason Start Date Expiration Date Visits Requested Visits Authorized [id number] Pending Review Auto-Generat ed Referral 09/12/2022 09/12/2023 1 1 Specialty Diagnoses / Procedures Referred By Contac t Referred To Contact Diagnoses 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 Procedures CONSULT TO MEDICAL GENETICS - MEDICAL GENETICS COUNSELING EACH 30 MINUTES Luís Bland MD [address] [place] [address] [address] Referral ID Status Reason Start Date Expiration Date Visits Requested Visits Authorized [id number] Authorized PCP Requested Referral Auto-Generate d Referral 10/16/2022 10/16/2023 1 1 Additional Source Comments INFORMATION SOURCE (unrecogn ized section and content) DATE CREATED AUTHOR 10/22/2018 [facility] ([place]) DATE CREATED AUTHOR AUTHOR'S ORGANIZ ATION 11/12/2021 [facility] DATE CREATED AUTHOR AUTHOR'S ORGANIZ ATION 12/11/2021 [facility] DATE CREATED AUTHOR AUTHOR'S ORGANIZ ATION 03/06/2023 [facility] DATE CREATED AUTHOR AUTHOR'S ORGANIZ ATION 03/29/2024 [facility] DATE CREATED AUTHOR AUTHOR'S ORGANIZ ATION 03/10/2025 [facility] Reason for Visit (unrecogniz ed section and content) Reason Comments Other Intermittent Reverse d Endiastolic Flow Reason Comments Cough Cough, fever, conges tion, ST, SCHULTZ and bodyaches x 2 days 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 Angel Luis pool Reason Onset Date Comments Early OB spotting 08/28/2022 Reason Comments Care Reason Comments Care Reason Comments Forms praf Reason Onset Date Comments Care 10/16/2022 Reason Comments Consult Ordered by Sherin Decker US Specialty Diagnoses / Procedures Referred By Contac t Referred To Contact [facility] Diagnoses Encounter for supervision of normal in multigravida 6 weeks gestation of Procedures NUCHAL TRANSLUCENCY WHI US NUCHAL TRANSLUCENCY 1ST GESTATION Sherin Decker APRN.CNM [address] [place] [address] [address] Referral ID Status Reason Start Date Expiration Date V isits Requested Visits Authorized [id number] Closed Auto-Generate d Referral 09/12/2022 09/12/2023 1 1 Reason Comments Patient Question Reason Comments NIPT Reason Comments US Specialty Diagnoses / Procedures Referred By Contac t Referred To Contact [facility] Diagnoses Encounter for supervision of normal in multigravida 6 weeks gestation of Procedures OBSTETRIC ULTRASOUND WHI US PREG UTERUS AFTER 1ST TRIMEST 1 GESTATION Sherin Decker APRN.JAS[facility] [address] [place] [address] [address] [address] [place] [address] Referral ID Status Reason Start Date Expiration Date V isits Requested Visits Authorized [id number] Closed Auto-Generate d Referral 09/12/2022 09/12/2023 1 1 Reason Onset Date Comments Care 12/11/2022 Reason Comments US Specialty Diagnoses / Procedures Referred By Contac t Referred To Contact [facility] Diagnoses Encounter for follow-up ultrasound of anatomy Procedures OBSTETRIC ULTRASOUND WHI US PREG UTERUS AFTER 1ST TRIMEST GESTATION Constance Suarez APRN.JASON [address] [place] [address] [address] Referral ID Status Reason Start Date Expiration Date V isits Requested Visits Authorized [id number] Closed Auto-Generate d Referral 01/01/2023 01/01/2024 1 1 Reason Onset Date Comments Care 01/08/2023 Reason Comments OB SCHULTZ Reason Onset Date Comments Care 01/24/2023 Reason Onset Date Comments Care 02/05/2023 Reason Comments Appointment Reason Comments Orders Reason Onset Date Comments Care 03/14/2023 Immunizations 03/14/2023 Flu vaccination Reason Comments Breast Pump Specialty Diagnoses / Procedures Referred By Contsteph t Referred To Contact [facility] Diagnoses 35 weeks gestation of Supervision of other high risk pregnancies, third trimester Procedures OBSTETRIC ULTRASOUND WHI US PREG UTERUS AFTER 1ST TRIMEST GESTATION Lise Concepcion MD [address] [place] [address] [facility] [address] [place] [address] Referral ID Status Reason Start Date Expiration Date V isits Requested Visits Authorized [id number] Closed Auto-Generate d Referral 03/29/2023 03/28/2024 1 1 Reason Onset Date Comments Care 04/12/2023 Reason Onset Date Comments Care 04/19/2023 Reason Onset Date Comments Care 04/22/2023 Reason Comments Bleeding Reason Comments Follow Up Pp bleeding Reason Comments Derm Problem redness and soreness on right side area x 2 days, c- section 11/ Reason Comments Medication Follow-up Reason Comments STD Reason Comments Missed Menses Scheduled Active and Recently Administ ered Medications (unrecognized section and content) Medication Order 11/01/2021 11/02/2021 11/03/2021 betamethasone acetate-betamethasone sodium phosphate (CELESTONE) injection 12 mg 12 mg, IntraMUSCular, EVERY 24 HOURS, 2 doses, First dose on Tammy 11/02/21 at 2014, Last dose on Sat11/03/21 at 2014, For labor 2037 (Given - Provider: Ernestine Cotton RN) 2014 (Due) vitamin 27-1 MG tablet 1 tablet 1 tablet, Oral, DAILY, First dose on Tammy 11/02/21 at 1930, Until Discontinued 2035 (Given - Provider: Ernestine Cotton RN) 1119 (Given - Provider: Amira Milian RN) sodium chloride flush 0.9 % injection 10 mL 10 mL, IntraVENous, EVERY 12 HOURS SCHEDULED (2 times per day), First dose on Tammy 11/02/21 at 2100, Until Discontinued 2034 (Given - Provider: Ernestine Cotton RN) 0900 (Due)2100 (Due) Continuous Medication Order 11/01/2021 11/02/2021 11/03/2021 lactated ringers infusion IntraVENous, at 100 mL/hr, CONTINUOUS, Starting on Sat11/03/21 at 0515 0630 (New Bag - Prov ider: Ernestine Cotton RN) PRN Medication Order 11/01/2021 11/02/2021 11/03/2021 0.9 % sodium chloride infusion IntraVENous, at 5-250 mL/hr, PRN, if patient receiving piggyback infusions and maintenance fluids are not ordered OR KVO fluids to protect IV site / prevent frequent line interruptions/ long duration, Starting on Tammy 11/02/21 at 1901, For piggyback infusion, administer at same rate as piggyback for a total of 25 mL. Enter 25 mL into dose field and piggyback rate into rate field of order. If piggyback is infusing at a rate less than 100 mL/hr, enter 25 mL into dose field and 100 mL/hr into rate field of order. For KVO fluids, enter rate of 20 mL/hr or less into rate field of order. acetaminophen (TYLENOL) suppository 650 mg(Linked Group 1) 650 mg, Rectal, EVERY 4 HOURS PRN, Starting on Tammy 11/02/21 at 1901, Until Discontinued, Pain Mild (1-3), Fever, Fever >100.5 (38 C), Use suppository if NPO or unable to tolerate oral medications. acetaminophen (TYLENOL) tablet 650 mg(Linked Group 1) 650 mg, Oral, EVERY 4 HOURS PRN, Starting on Tammy 11/02/21 at 1901, Until Discontinued, Pain Mild (1-3), Fever, Fever >100.5 (38 C), Do not use if NPO. albuterol (PROVENTIL) nebulizer solution 2.5 mg 2.5 mg, Nebulization, EVERY 6 HOURS PRN, Starting on Tammy 11/02/21 at 1900, Until Discontinued, Wheezing, Initiate RT Bronchodilator Protocol: No docusate sodium (COLACE) capsule 100 mg 100 mg, Oral, 2 TIMES DAILY PRN, Starting on Tammy 11/02/21 at 1901, Until Discontinued, Constipation, Do not crush or break. ondansetron (ZOFRAN) injection 4 mg(Linked Group 2) 4 mg, IntraVENous, EVERY 6 HOURS PRN, Starting on Tammy 11/02/21 at 1901, Until Discontinued, Nausea, Vomiting, Administer if oral route cannot be used. ondansetron (ZOFRAN-ODT) disintegrating tablet 4 mg(Linked Group 2) 4 mg, Oral, EVERY 8 HOURS PRN, Starting on Tammy 11/02/21 at 1901, Until Discontinued, Nausea, Vomiting sodium chloride flush 0.9 % injection 10 mL 10 mL, IntraVENous, PRN, Starting on Tammy 11/02/21 at 1901, Until Discontinued, Line Care, After every IV line use Linked Groups Order Group 1: acetaminophen (TYLENOL) tablet 650 mgJump to med 650 mg, Oral, EVERY 4 HOURS PRN, Starting on Tammy 11/02/21 at 1901, Until Discontinued, Pain Mild (1-3), Fever, Fever >100.5 (38 C)
Do not use if NPO.
Or acetaminophen (TYLENOL) suppository 650 mgJump to med 650 mg, Rectal, EVERY 4 HOURS PRN, Starting on Tammy 11/02/21 at 1901, Until Discontinued, Pain Mild (1-3), Fever, Fever >100.5 (38 C)
Use suppository if NPO or unable to tolerate oral medications.
Group 2: ondansetron (ZOFRAN-ODT) disintegrating tablet 4 mgJump to med 4 mg, Oral, EVERY 8 HOURS PRN, Starting on Tammy 11/02/21 at 1901, Until Discontinued, Nausea, Vomiting Or ondansetron (ZOFRAN) injection 4 mgJump to med 4 mg, IntraVENous, EVERY 6 HOURS PRN, Starting on Tammy 11/02/21 at 1901, Until Discontinued, Nausea, Vomiting
Administer if oral route cannot be used.
Source Comments (unrecognize d section and content) In the event this informatio n is protected by the Federal Confidentiality of Alcohol and Drug Abuse Patient Records regulations: The Federal rules restrict any use of the information to criminally investigate or prosecute any alcohol or drug abuse patient.[facility] the event this information is protected by the Federal Confidentiality of Alcohol and Drug Abuse Patient Records regulations: The Federal rules restrict any use of the information to criminally investigate or prosecute any alcohol or drug abuse patient.[facility] HospitalIn the event this information is protected by the Federal Confidentiality of Alcohol and Drug Abuse Patient Records regulations: The Federal rules restrict any use of the information to criminally investigate or prosecute any alcohol or drug abuse patient.[facility] HospitalIn the event this information is protected by the Federal Confidentiality of Alcohol and Drug Abuse Patient Records regulations: The Federal rules restrict any use of the information to criminally investigate or prosecute any alcohol or drug abuse patient.[facility] HospitalIn the event this information is protected by the Federal Confidentiality of Alcohol and Drug Abuse Patient Records regulations: The Federal rules restrict any use of the information to criminally investigate or prosecute any alcohol or drug abuse patient.[facility] HospitalIn the event this information is protected by the Federal Confidentiality of Alcohol and Drug Abuse Patient Records regulations: The Federal rules restrict any use of the information to criminally investigate or prosecute any alcohol or drug abuse patient.[facility] HospitalIn the event this information is protected by the Federal Confidentiality of Alcohol and Drug Abuse Patient Records regulations: The Federal rules restrict any use of the information to criminally investigate or prosecute any alcohol or drug abuse patient.[facility] HospitalIn the event this information is protected by the Federal Confidentiality of Alcohol and Drug Abuse Patient Records regulations: The Federal rules restrict any use of the information to criminally investigate or prosecute any alcohol or drug abuse patient.[facility] HospitalIn the event this information is protected by the Federal Confidentiality of Alcohol and Drug Abuse Patient Records regulations: The Federal rules restrict any use of the information to criminally investigate or prosecute any alcohol or drug abuse patient.[facility] HospitalIn the event this information is protected by the Federal Confidentiality of Alcohol and Drug Abuse Patient Records regulations: The Federal rules restrict any use of the information to criminally investigate or prosecute any alcohol or drug abuse patient.[facility] HospitalIn the event this information is protected by the Federal Confidentiality of Alcohol and Drug Abuse Patient Records regulations: The Federal rules restrict any use of the information to criminally investigate or prosecute any alcohol or drug abuse patient.[facility] HospitalIn the event this information is protected by the Federal Confidentiality of Alcohol and Drug Abuse Patient Records regulations: The Federal rules restrict any use of the information to criminally investigate or prosecute any alcohol or drug abuse patient.[facility] HospitalIn the event this information is protected by the Federal Confidentiality of Alcohol and Drug Abuse Patient Records regulations: The Federal rules restrict any use of the information to criminally investigate or prosecute any alcohol or drug abuse patient.[facility] HospitalIn the event this information is protected by the Federal Confidentiality of Alcohol and Drug Abuse Patient Records regulations: The Federal rules restrict any use of the information to criminally investigate or prosecute any alcohol or drug abuse patient.[facility] HospitalIn the event this information is protected by the Federal Confidentiality of Alcohol and Drug Abuse Patient Records regulations: The Federal rules restrict any use of the information to criminally investigate or prosecute any alcohol or drug abuse patient.[facility] HospitalIn the event this information is protected by the Federal Confidentiality of Alcohol and Drug Abuse Patient Records regulations: The Federal rules restrict any use of the information to criminally investigate or prosecute any alcohol or drug abuse patient.[facility] HospitalIn the event this information is protected by the Federal Confidentiality of Alcohol and Drug Abuse Patient Records regulations: The Federal rules restrict any use of the information to criminally investigate or prosecute any alcohol or drug abuse patient.[facility] HospitalIn the event this information is protected by the Federal Confidentiality of Alcohol and Drug Abuse Patient Records regulations: The Federal rules restrict any use of the information to criminally investigate or prosecute any alcohol or drug abuse patient.[facility] HospitalIn the event this information is protected by the Federal Confidentiality of Alcohol and Drug Abuse Patient Records regulations: The Federal rules restrict any use of the information to criminally investigate or prosecute any alcohol or drug abuse patient.[facility] HospitalIn the event this information is protected by the Federal Confidentiality of Alcohol and Drug Abuse Patient Records regulations: The Federal rules restrict any use of the information to criminally investigate or prosecute any alcohol or drug abuse patient.[facility] HospitalIn the event this information is protected by the Federal Confidentiality of Alcohol and Drug Abuse Patient Records regulations: The Federal rules restrict any use of the information to criminally investigate or prosecute any alcohol or drug abuse patient.[facility] HospitalIn the event this information is protected by the Federal Confidentiality of Alcohol and Drug Abuse Patient Records regulations: The Federal rules restrict any use of the information to criminally investigate or prosecute any alcohol or drug abuse patient.[facility] HospitalIn the event this information is protected by the Federal Confidentiality of Alcohol and Drug Abuse Patient Records regulations: The Federal rules restrict any use of the information to criminally investigate or prosecute any alcohol or drug abuse patient.[facility] HospitalIn the event this information is protected by the Federal Confidentiality of Alcohol and Drug Abuse Patient Records regulations: The Federal rules restrict any use of the information to criminally investigate or prosecute any alcohol or drug abuse patient.[facility] HospitalIn the event this information is protected by the Federal Confidentiality of Alcohol and Drug Abuse Patient Records regulations: The Federal rules restrict any use of the information to criminally investigate or prosecute any alcohol or drug abuse patient.[facility] HospitalIn the event this information is protected by the Federal Confidentiality of Alcohol and Drug Abuse Patient Records regulations: The Federal rules restrict any use of the information to criminally investigate or prosecute any alcohol or drug abuse patient.[facility] HospitalIn the event this information is protected by the Federal Confidentiality of Alcohol and Drug Abuse Patient Records regulations: The Federal rules restrict any use of the information to criminally investigate or prosecute any alcohol or drug abuse patient.[facility] HospitalIn the event this information is protected by the Federal Confidentiality of Alcohol and Drug Abuse Patient Records regulations: The Federal rules restrict any use of the information to criminally investigate or prosecute any alcohol or drug abuse patient.[facility] HospitalIn the event this information is protected by the Federal Confidentiality of Alcohol and Drug Abuse Patient Records regulations: The Federal rules restrict any use of the information to criminally investigate or prosecute any alcohol or drug abuse patient.[facility] HospitalIn the event this information is protected by the Federal Confidentiality of Alcohol and Drug Abuse Patient Records regulations: The Federal rules restrict any use of the information to criminally investigate or prosecute any alcohol or drug abuse patient.[facility] HospitalIn the event this information is protected by the Federal Confidentiality of Alcohol and Drug Abuse Patient Records regulations: The Federal rules restrict any use of the information to criminally investigate or prosecute any alcohol or drug abuse patient.[facility] HospitalIn the event this information is protected by the Federal Confidentiality of Alcohol and Drug Abuse Patient Records regulations: The Federal rules restrict any use of the information to criminally investigate or prosecute any alcohol or drug abuse patient.[facility] HospitalIn the event this information is protected by the Federal Confidentiality of Alcohol and Drug Abuse Patient Records regulations: The Federal rules restrict any use of the information to criminally investigate or prosecute any alcohol or drug abuse patient.[facility] HospitalIn the event this information is protected by the Federal Confidentiality of Alcohol and Drug Abuse Patient Records regulations: The Federal rules restrict any use of the information to criminally investigate or prosecute any alcohol or drug abuse patient.[facility] HospitalIn the event this information is protected by the Federal Confidentiality of Alcohol and Drug Abuse Patient Records regulations: The Federal rules restrict any use of the information to criminally investigate or prosecute any alcohol or drug abuse patient.[facility] HospitalIn the event this information is protected by the Federal Confidentiality of Alcohol and Drug Abuse Patient Records regulations: The Federal rules restrict any use of the information to criminally investigate or prosecute any alcohol or drug abuse patient.[facility] the event this information is protected by the Federal Confidentiality of Alcohol and Drug Abuse Patient Records regulations: The Federal rules restrict any use of the information to criminally investigate or prosecute any alcohol or drug abuse patient.[facility] FOR RECORDS PERTAINING TO PATIENTS WHO ARE OR HAVE BEEN ENROLLED IN A CHEMICAL DEPENDENCY/SUBSTANCEABUSE PROGRAM, SOME INFORMATION MAY BE OMITTED. This clinical summary was aggregated from multiple sources. Caution should be exercised in using it in the provision of clinical care. This summary normalizes information from multiple sources, and as a consequence, information in this document may materially change the coding, format and clinical context of patient data. In addition, data may be omitted in some cases. CLINICAL DECISIONS SHOULD BE BASED ON THE PRIMARY CLINICAL RECORDS. [facility] [employer] [facility]. provides no warranty or guarantee of the accuracy or completeness of information in this document.
[2025-03-18 22:48] VITALS: BP 100/52; PULSE 71; O2SAT 100
[2025-03-18 23:00] VITALS: BP 97/67; PULSE 58; RESP 18; O2SAT 100
[2025-03-18 23:10] LABS: Troponin T High Sensitivity < 6 ng/L (<=14)
[2025-03-18 23:22] LABS: Anion Gap 11 (5-15); BUN 20 mg/dL (4-19); BUN/Creat Ratio 23.5 RATIO (10-20); Calcium,Total 8.8 mg/dL (7.6-11.0); Carbon Dioxide 20.7 mmol/L (21.0-32.0); Chloride 106 mmol/L (98-108); Estimated Creatinine Clearance 98.17 ml/min (50-250); Glucose 95 mg/dL (70-99); Magnesium 2.2 mg/dL (1.5-2.2); Potassium 3.5 mmol/L (3.3-5.1)
[2025-03-18 23:52] LABS: Internal QC Validated? YES +Cl - CLEAR BKGD; Pregnancy, Serum, hCG Quali. NEGATIVE Negative; Record Kit Lot#, Serum Preg. 964736
[2025-03-19] VITALS: BP 95/60; PULSE 70; RESP 16; O2SAT 100
[2025-03-19 00:08] VITALS: BP 95/60; PULSE 70; RESP 16; TEMP 36.7; O2SAT 100
--- NOTE | 2025-03-19 00:32 | EX.ED.DYSGE1 ---
HPI History of Present Illness Chief Complaint: Chest Pain Informant: patient Narrative Narrative: Patient is a 24-year-old female with past medical history of anxiety and depression as well as asthma. She states she went to bed and then awoke from sleep and noticed midsternal chest discomfort. She states that there was no associated nausea vomiting diaphoresis or shortness of breath. She denies any recent travel surgery or history of DVT/PE. She does report that her brother has some type of genetic cardiac issue but she is unsure what that is. She also denies any history of excessive stimulant use or illicit drug use. She states symptoms have improved upon arrival but with concern this could have been an abnormal heart rhythm or some type of cardiac event especially with her brother having a history of cardiac disease she presents for evaluation. [facility] Medical History depression Depression Family history of hearing loss at age younger than 7 years Chlamydia infection affecting Infertility Anxiety Gastric reflux Difficulty balancing Asthma Home Medications ?Medication ?Instructions ?Recorded ?Last Taken ?Type albuterol sulfate 90 mcg/actuation 2 puff inhalation Q6H PRN asthma 04/26/23 Unknown History aerosol inhaler (Ventolin HFA) acetaminophen 500 mg tablet 1,000 mg (2 x 500 mg) PO Q6H #0 04/28/23 Unknown Rx tabs ibuprofen 600 mg tablet 600 mg PO Q6H #0 tabs 04/28/23 Unknown Rx sennosides 8.6 mg-docusate sodium 1 - 2 tab PO DAILY #0 tabs 04/28/23 06/12/23 Rx 50 mg tablet (Stool Softener-Stimulant Laxative) escitalopram oxalate 10 mg tablet 10 mg PO DAILY 06/12/23 06/12/23 History nystatin 100,000 unit/gram topical 1 applic topical TID 06/12/23 06/12/23 History powder (Nystop) naproxen 500 mg tablet (Naprosyn) 500 mg PO BID PRN pain #20 tabs 03/05/25 Unknown Rx Allergy/AdvReac Type Severity Reaction Status Date / Time amoxicillin (Amoxicillin) Allergy Hives Verified 03/18/25 21:49 codeine Allergy Nausea Verified 03/18/25 21:49 Penicillins Allergy Hives Verified 03/18/25 21:49 Milk Containing Products AdvReac Upset Verified 03/18/25 21:49 (Dairy) Stomach Family History Grandfather Heart disease Grandmother Heart disease Mother Breast cancer Mitral valve prolapse Surgical History Delivery by section History of knee surgery Social History Smoking Status: Never smoker ROS ROS ED Constitutional Constitutional ED: Denies chills or fever(s) Eyes Eyes: Denies change in vision ENT ENT ED: Denies sore throat Cardiovascular Cardiovascular: Reports chest pain Respiratory/Chest Respiratory/Chest: Denies cough or dyspnea Gastrointestinal Gastrointestinal: Denies abdominal pain, diarrhea, nausea or vomiting Genitourinary Genitourinary ED: Denies dysuria Musculoskeletal Musculoskeletal: Denies myalgias Integumentary Denies rash Neurologic Neurologic: Denies headache(s) Psychiatric Psychiatric: Reports anxiety and depression Hematologic/Lymphatic Hematologic/Lymphatic: Denies easy bleeding or easy bruising EXAM Physical Exam Const Vital Signs: 03/18/25 21:48 03/18/25 21:49 03/18/25 21:52 Temperature 98.9 F Temperature Source Oral Pulse Rate 88 Respiratory Rate 13 Respiratory Effort Normal Non-Labored Blood Pressure 112/76 Blood Pressure Mean 88 Pulse Ox 100 Oxygen Delivery Method Room Air 03/18/25 22:48 03/18/25 23:00 03/19/25 00:00 Temperature Temperature Source Pulse Rate 71 58 L 70 Respiratory Rate 18 16 Respiratory Effort Blood Pressure 100/52 L 97/67 95/60 Blood Pressure Mean 68 77 71 Pulse Ox 100 100 100 Oxygen Delivery Method Room Air Room Air Room Air 03/19/25 00:08 Temperature 98.0 F Temperature Source Pulse Rate 70 Respiratory Rate 16 Respiratory Effort Blood Pressure 95/60 Blood Pressure Mean 71 Pulse Ox 100 Oxygen Delivery Method Positive well nourished and well developed General Appearance ED: well developed; Negative for pallor HEENT HEENT Narrative: Normocephalic atraumatic Eyes PERRL and EOMs intact bilaterally General Eye ED: Negative for scleral icterus Neck supple and no JVD Chest Wall palpation of chest normal Chest Narrative: No bony deformity or crepitance Resp normal respiratory effort and clear to auscultation bilaterally Cardio regular rate and regular rhythm Rate: other Other Details: Regular rate and rhythm without murmurs rubs or gallops Radial and carotid pulses are equal and symmetric No carotid bruit noted GI normal to inspection, nondistended, normoactive bowel sounds, non-tender, non-distended and no masses Auscultation: normoactive bowel sounds Palpation: soft Extremity normal to inspection Extremity Narrative: No asymmetric edema no pitting edema negative Homans' sign bilaterally Neuro oriented x3, CN's II-XII intact bilaterally and no sensory deficits noted Sensorium / Orientation: alert Motor Exam: strength 5/5 throughout Psych mental status grossly normal Skin no rashes or lesions noted and no wounds General Skin Exam: Negative for jaundice or pallor MDM MDM MDM Narrative Medical decision making narrative: Patient arrived to the ER with stable vitals. She is low risk for cardiovascular disease but does have a slightly elevated concern based on her report of brother with some type of genetic cardiac disease. There has been no recent travel or surgery and her heart rate is on the lower side and there is no pleuritic nature to her chest discomfort and therefore I have no need to check a D-dimer or perform a CTA as there is low risk for pulmonary embolus as a cause. In order to rule out acute coronary syndrome versus cardiac dysrhythmia versus lung pathology such as pneumonia or pneumothorax I did elect to perform basic laboratory studies and a chest x-ray with EKG. EKG revealed no signs of ischemia and she was kept on cardiac cath tech and there was no cardiac dysrhythmia noted. Lab work revealed no clinically significant lab changes and her troponin was less than 6 going against an acute cardiac event. Chest x-ray also revealed no lung pathology. Therefore at this time with stable vitals and overall negative workup as well as no obvious cardiac dysrhythmia noted I do not feel the need for further evaluation in ER patient is otherwise safe for discharge. History & Record Review Discussion w/independent historian: Patient Lab Data Attestation: I reviewed the patient's lab results. Labs: Laboratory Results - last 24 hr 03/18/25 03/18/25 22:00 22:35 WBC 8.3 RBC 4.55 Hgb 12.8 Hct 38.9 MCV 85.5 MCH 28.1 MCHC 32.9 RDW Std Deviation 42.4 RDW Coeff of Zulma 13.6 Plt Count 291 MPV 9.3 Immature Gran % (Auto) 0.500 Neut % (Auto) 51.1 Lymph % (Auto) 36.0 Lucas % (Auto) 9.1 Eos % (Auto) 2.7 Baso % (Auto) 0.6 Absolute Neuts (auto) 4.2 Absolute Lymphs (auto) 2.97 Nucleated RBC % 0 Sodium 138 Potassium 3.5 Chloride 106 Carbon Dioxide 20.7 L Anion Gap 11 BUN 20 H Creatinine 0.84 Estim Creat Clear Calc 98.17 Est GFR (MDRD) Non-Af 99 BUN/Creatinine Ratio 23.5 H Glucose 95 Calcium 8.8 Magnesium 2.2 Troponin T High Sens < 6 TSH 2.520 Serum , Qual NEGATIVE Radiography Diagnostic Testing: Clinical Impression(s) from Imaging Studies Chest X-Ray 03/18/25 22:26 IMPRESSION: No acute cardiopulmonary disease. Reading Location: [facility] Chest x-ray as interpreted by the emergency medicine physician reveals no acute infiltrate pneumothorax pleural effusion no widening of the mediastinum Discharge Plan Triage Chief Complaint: Chest Pain ED Provider: Luís Mason Dx/Rx/DC Orders Clinical Impression: Acute nonspecific chest pain with low risk of coronary artery disease, Depression, Anxiety Instructions: ED Chest Pain, Uncertain Cause Prescriptions: No Action albuterol sulfate [Ventolin HFA] 90 mcg/actuation HFA aerosol inhaler 2 puff INHALATION Q6H PRN (Reason: asthma) Patient Comments: INHALE 2 PUFFS BY MOUTH DIRECTED EVERY 6 HOURS NEEDED sennosides-docusate sodium [Stool Softener-Stimulant Laxat] 8.6-50 mg Tablet 1 - 2 tab PO DAILY Qty: 0 0RF acetaminophen 500 mg Tablet 1,000 mg PO Q6H Qty: 0 0RF ibuprofen 600 mg Tablet 600 mg PO Q6H Qty: 0 0RF escitalopram oxalate 10 mg tablet 10 mg PO DAILY nystatin [Nystop] 100,000 unit/gram powder 1 applic TOPICAL TID Patient Comments: OVER SCAR naproxen [Naprosyn] 500 mg tablet 500 mg PO BID PRN (Reason: pain) Qty: 20 0RF Primary Care Provider: Harini Wesley Referrals: Harini Wesley MD [Primary Care Provider, Internal Medicine] Print Language: Yoruba Disposition Disposition: Home, Self Care Discharge Date/Time: 03/19/25 00:36
== END 2025-03-19 00:36 | disposition home or self-care (01) ==
PROVIDERS: Emergency Provider Emergency Medicine; PCP Internal Medicine; Visit Provider Emergency Medicine
DX: R07.9 Chest pain, unspecified (principal)
CPT/HCPCS: 71046; 80048; 83735; 84443; 84484; 84703; 85025; 93005; 99284; A4216

== ENCOUNTER 2025-06-21 05:42 | Emergency (ER) | payer MEDICAID, SELFPAY ==
[2025-06-21 05:43] VITALS: BP 114/82; PULSE 100; RESP 18; TEMP 36.6; O2SAT 79; BMI 35.8
[2025-06-21] MEDS: 0.9% Normal Saline (1000mL) 1,000 ML 999 ML IV (06:34)
[2025-06-21] MEDS: Ketorolac 30 MG/ML Syringe IV (06:34)
--- OUTSIDE RECORDS SUMMARY | 2025-06-21 06:39 | XMS RPT_ITS | CCD ---
Author Organization [facility] Care Team Providers Care Glaze Handler Name Role Phone Sivan Nickerson Attending UnavailZENY Romero Primary Care Unavailable Unavailable Primary Care Provider Unavailabl e Unavailable Primary Care Provider UnavailKEYON Sahu Attending Unavailable Unavailable Primary Care Provider Unavailabl e KARSON, LISE Attending Unavailable WISWELL, LISE Attending Unavailable WISWELL, LISE Attending Unavailable WISWELL, LISE Referring Unavailable WISWELL, LISE Referring Unavailable CAROLE QUINTERO Attending Unavailable WISWELL, LISE Attending Unavailable CONSTANCE MONCADA Attending Unavailable WISWELL, LISE Attending Unavailable TIZZANOWOLFGANG Attending Unavailable TIWOLFGANG CHRISTENSEN Referring Unavailable WISWELL, LISE Attending Unavailable WISWELL, LISE Referring Unavailable SHERIN DECKER Attending Unavailable Lusí Mason Attending Unavailable Care Physician, No Primary Primary Care Unava ilable Bonezzi, Harini Primary Care Unavailable Jayce Connolly Attending Unavailable Bonezzi, Harini Primary Care Unavailable Jose D Main Attending Unavailable Bonezzi, Harini Primary Care Unavailable Luís Mason Attending Unavailable Allergies Allergy Classification Reported Allergen(s) Allergy Type Date of Onset Reaction(s) Facility (20 sources) Amoxicillin; Translations: [AMOXICILLIN] Drug Allergy 9 [facility] (2 sources) Penicillins; Translations: [Penicillins] Propensity to adverse reactions to drug 2 Hives [facility] Work Phone: (20 sources) Codeine; Translations: [CODEINE] Drug Allergy 2 GI Upset [facility] Work Phone: (1 source) Amoxicillin Drug Allergy 5 [facility] Repository (1 source) Codeine Drug Allergy 5 [facility] (1 source) Milk Containing Products (Dairy) Drug allergy (disorder) 5 [facility] Repository Medications Current Medications Medication Drug Class(es) [...] mg oral capsule (7 sources) Start: 06-10-20 23 take 1 capsule by mouth twice daily docusate sodium (COLACE) 100 mg capsule Indications: Constipation, unspecified constipation type , state Take 1 capsule by mouth two times a day. 30 capsule 2 06/10/2023 Active Start: 05-09-2023 take 1 capsule by mo uth twice daily docusate sodium (COLACE) 100 mg capsule Indications: Constipation, unspecified constipation type , state Take 1 capsule by mouth two times a day. 30 capsule 2 05/09/2023 Active Start: 11-02-2021 take 100 mg by mouth twice daily as needed 100 mg, Oral, 2 TIMES DAILY PRN, Starting on Tammy 5/12/22 at 1901, Until Discontinued, Constipation Do not crush or break. Comment on above: Take 1 capsule by mo [facility] two times a day. Ethinyl Estradiol / Ferrous fumarate / Norethindrone (3 sources) Estrogen Start: 4 take 1 tablet by mouth once daily, then take 0.05 tablet by mouth once Norethin Diogenes-Eth Estrad-FE (JUNEL FE 07/13, ,) 1 mg-20 mcg (21)/75 mg (7) per tablet Indications: Encounter for initial prescription of contraceptive pills , Menorrhagia with regular cycle Take 1 tablet by mouth once daily. 84 tablet 4 07/29/2023 Active Comment on above: Take 1 tablet by cristal th once daily. ferrous sulfate (4 sources) take [...] (3 sources) Serotonin Reuptake Inhibitor Start: 07-29-19 24 take 1 capsule by mouth once daily FLUoxetine (PROZAC) 10 mg capsule Indications: care and examination , depression Take 1 capsule by mouth once daily. 28 capsule 1 07/29/2023 Active Comment on above: Take 1 capsule by mo [facility] once daily. ibuprofen 600 mg oral tablet [...] disintegrating tablet 4 mg polyethylene glycol 3350 13137 mg powder for oral solution (7 sources) [...] Drug Class(es) Dates Sig (Normalized) Sig (Original) [id number] 200 actuat albuterol 0.09 mg/actuat metered dose [...] oral solution (8 sources) alpha-Adrenergic Agonist, Uncompetitive F-xjzexn-E-aspartate Receptor Antagonist, Sigma-1 Agonist Start: 07-20-19 End: [...] Serotonin Reuptake Inhibitor Start: 06-10-20 End: 07-29-19 take 1 tablet by mouth once daily [...] above: Take 1 tablet by cristal th every 8 hours as needed. vitamin 27-1 [...] (2 times per day), First dose on [facility] 11/02/21 at 2100, Until Discontinued Start: 11-02-2021 IntraVENous, a t 5-250 mL/hr, PRN, if patient receiving piggyback infusions and maintenance fluids are not ordered OR KVO fluids to protect IV site / prevent frequent line interruptions/ long duration, Starting on [facility] 11/02/21 at 1901 For piggyback infusion, administer at [...] needed 10 mL, IntraVENous, PRN, Starting on [facility] 11/02/21 at 1901, Until Discontinued, Line Care, [...] source) depression; Translations: [ depression] 08-05-2023 Episodic Nonspecific chest pain (1 source) Chest pain, unspecified; Translations: [Chest pain, unspecified] Onset: 03-24-2025 Episodic Other complications of ; puerperium affecting [...] Test Name Value Interpretation Reference Range Facil gopiy Emergency Department Summary on 03-19-2025 Emergency Department Summary [facility] Medical Records Department [address] [place] [address] Emergency Department Summary 03/19/25 MR#: [id number] Acct: [id number] Name: CALVINSAUD LYNN Rep #: [id number] : 2000 24 From: Luís Mason DO PCP: Dr. Harini Wesley MD Status:DEP ER Location: ED HPI History of Present Illness Chief Complaint: Chest Pain Informant: patient Narrative Narrative: Patient is a 24-year-old female with past medical history of anxiety and depression as well as asthma. She states she went to bed and then awoke from sleep and noticed midsternal chest discomfort. She states that there was no associated nausea vomiting diaphoresis or shortness of breath. She denies any recent travel surgery or history of DVT/PE. She does report that her brother has some type of genetic cardiac issue but she is unsure what that is. She also denies any history of excessive stimulant use or illicit drug use. She states symptoms have improved upon arrival but with concern this could have been an abnormal heart rhythm or some type of cardiac event especially with her brother having a history of cardiac disease she presents for evaluation. [facility] Medical History depression Depression Family history of [...] / Time amoxicillin (Amoxicillin) Allergy Hives Verified 03/18/25 21:49 codeine Allergy Nausea Verified 03/18/25 21:49 Penicillins Allergy Hives Verified 03/18/25 21:49 Milk Containing Products AdvReac Upset Verified 03/18/25 21:49 (Dairy) Stomach Family History Grandfather Heart disease Grandmother Heart disease Mother Breast cancer Mitral valve prolapse Surgical History Delivery by section History of knee surgery Social History Smoking Status: Never smoker ROS ROS ED Constitutional Constitutional ED: Denies chills or fever(s) Eyes Eyes: Denies change in vision ENT ENT ED: Denies sore throat Cardiovascular Cardiovascular: Reports chest pain Respiratory/Chest Respiratory/Chest: Denies cough or dyspnea Gastrointestinal Gastrointestinal: Denies abdominal pain, diarrhea, nausea or vomiting Genitourinary Genitourinary ED: Denies dysuria Musculoskeletal Musculoskeletal: Denies myalgias Integumentary Denies rash Neurologic Neurologic: Denies headache(s) Psychiatric Psychiatric: Reports anxiety and depression Hematologic/Lymphatic Hematologic/Lymphatic : Denies easy bleeding or easy bruising EXAM Physical Exam Const Vital Signs: 03/18/25 21:48 03/18/25 21:49 03/18/25 21:52 Temperature 98.9 F Temperature Source Oral Pulse Rate 88 Respiratory Rate 13 Respiratory Effort Normal Non-Labored Blood Pressure 112/76 Blood Pressure Mean 88 Pulse Ox 100 Oxygen Delivery Method Room Air 03/18/25 22:48 03/18/25 23:00 03/19/25 00:00 Temperature Temperature Source Pulse Rate 71 58 L 70 Respiratory Rate 18 16 Respiratory Effort Blood Pressure 100/52 L 97/67 95/60 Blood Pressure Mean 68 77 71 Pulse Ox 100 100 100 Oxygen Delivery Method Room Air Room Air Room Air 03/19/25 00:08 Temperature 98.0 F Temperature Source Pulse Rate 70 Respiratory Rate 16 Respiratory Effort Blood Pressure 95/60 Blood Pressure Mean 71 Pulse Ox 100 Oxygen Delivery Method Positive well nourished and well developed General Appearance ED: well developed; Negative for pallor HEENT HEENT Narrative: Normocephalic atraumatic Eyes PERRL and EOMs intact bilaterally General Eye ED: Negative for scleral icterus Neck supple and no JVD Chest Wa (more content not included)... Normal [facility] 12 Lead EKGon 03-18-2025 12 Lead EKG [facility] Cardiovascular Services [address] [place] [address] 12 Lead EKG 03/18/25 2220 MR#: [id number] Acct: [id number] Name: SAUD SIMPSON Rep #: [id number] : 2000 From: Dani Wong MD Attending Dr: Status: DEP ER Ordering Dr: Luís Mason DO Date: 03/18/25 Location: ED Sex: F C Admitted: Test Reason : DYSRHYTHMIA Blood Pressure : */* mmHG Vent. Rate : 64 BPM Atrial Rate : 64 BPM P-R Int : 130 ms QRS Dur : 84 ms QT Int : 390 ms P-R-T Axes : 17 0 12 degrees QTcB Int : 402 ms Normal sinus rhythm with sinus arrhythmia Minimal voltage criteria for LVH, may be normal variant ( R in aVL ) Borderline ECG Confirmed by DANI WONG MD ([id number]), writer editor YG WRIGHT ([id number]) on 03/19/2025 11:01:14 AM Referred By: Confirmed By: DANI WONG MD 03/19/25 1101 Date Dani Wong MD CC: Dr. Harini Wesley MD; Luís Mason DO Signed Normal [facility] Basic Metabolic Profile (BMP )on 03-18-2025 BUN/CRE 23.5 RATIO High 10-20 [facility] Comment on above: Performed By: #### L 500.2500, L100.0100, L501.5200, L501.9520 ####[facility] [address] [place], [address] Calcium [Mass/Vol] 8.8 mg/dL Normal 7.6-11.0 [facility] Comment on above: Performed By: #### L 500.2500, L100.0100, L501.5200, L501.9520 ####[facility] [address] [place], [address] Chloride [Moles/Vol] 106 mmol/L Normal 98-108 [facility] Comment on above: Performed By: #### L 500.2500, L100.0100, L501.5200, L501.9520 ####[facility] [address] [place], [address] CO2 [Moles/Vol] 20.7 mmol/L Low 21.0-32.0 [facility] Comment on above: Performed By: #### L 500.2500, L100.0100, L501.5200, L501.9520 ####[facility] [address] [place], [address] Creatinine [Mass/Vol] 0.84 mg/dL Normal 0.70-1.20 [facility] Comment on above: Performed By: #### L 500.2500, L100.0100, L501.5200, L501.9520 ####[facility] [address] [place], [address] ECRCL 98.17 ml/min Normal 50-250 [facility] Comment on above: Performed By: #### L 500.2500, L100.0100, L501.5200, L501.9520 ####[facility] [address] [place], [address] GAP 11 Normal 5-15 [facility] Comment on above: Performed By: #### L 500.2500, L100.0100, L501.5200, L501.9520 ####[facility] [address] [place], [address] GFR/1.73 sq M.predicted among non-blacks MDRD (S/P/Bld) [Vol rate/Area] 99 mL/min/{1.73_m2} Normal >60 [facility] Comment on above: Result Comment: mL/m in/1.73m2 CKD-EPI Creatinine Equation (2020) Performed By: #### L 500.2500, L100.0100, L501.5200, L501.9520 ####[facility] [address] [place], [address] Glucose [Mass/Vol] 95 mg/dL Normal 70-99 [facility] Comment on above: Performed By: #### L 500.2500, L100.0100, L501.5200, L501.9520 ####[facility] [address] [place], [address] Potassium [Moles/Vol] 3.5 mmol/L Normal 3.3-5.1 [facility] Comment on above: Performed By: #### L 500.2500, L100.0100, L501.5200, L501.9520 ####[facility] [address] [place], [address] Sodium [Moles/Vol] 138 mmol/L Normal 133-145 [facility] Comment on above: Performed By: #### L 500.2500, L100.0100, L501.5200, L501.9520 ####[facility] [address] [place], [address] Urea nitrogen [Mass/Vol] 20 mg/dL High 4-19 [facility] Comment on above: Performed By: #### L 500.2500, L100.0100, L501.5200, L501.9520 ####[facility] [address] [place], [address] CBC W/Diff, Automatedon 09-2 Absolute Lymph 2.97 X10 3/uL Normal 0.83-4.51 [facility] Comment on above: Performed By: #### L 500.2500, L100.0100, L501.5200, L501.9520 #### [facility] [address] [place], [address] Absolute Neut 4.2 X10 3/uL Normal 2.0-7.7 [facility] Comment on above: Performed By: #### L 500.2500, L100.0100, L501.5200, L501.9520 #### [facility] [address] [place], [address] Basophils/100 WBC (Bld) 0.6 % Normal 0-1 [facility] Comment on above: Performed By: #### L 500.2500, L100.0100, L501.5200, L501.9520 #### [facility] [address] [place], [address] Eosinophils/100 WBC (Bld) 2.7 % Normal 0-5 [facility] Comment on above: Performed By: #### L 500.2500, L100.0100, L501.5200, L501.9520 #### [facility] [address] [place], [address] Erythrocyte distribution width (RBC) [Ratio] 13.6 % Normal 11.6-14.6 [facility] Comment on above: Performed By: #### L 500.2500, L100.0100, L501.5200, L501.9520 #### [facility] [address] [place], [address] Hematocrit (Bld) [Volume fraction] 38.9 % Normal 37-47 [facility] Comment on above: Performed By: #### L 500.2500, L100.0100, L501.5200, L501.9520 #### [facility] [address] [place], [address] Hemoglobin (Bld) [Mass/Vol] 12.8 g/dL Normal 12.0-15.0 [facility] Comment on above: Performed By: #### L 500.2500, L100.0100, L501.5200, L501.9520 #### [facility] [address] [place], [address] IG% 0.500 Normal 0.0-0.9 [facility] Comment on above: Result Comment: IG% - Immature Granulocytes (promyelocytes, myelocytes and metamyelocytes) > 1% indicates that a LEFT SHIFT is Present. Performed By: #### L 500.2500, L100.0100, L501.5200, L501.9520 #### [facility] [address] [place], [address] Lymphocytes/100 WBC (Bld) 36.0 % Normal 19-41 [facility] Comment on above: Performed By: #### L 500.2500, L100.0100, L501.5200, L501.9520 #### [facility] [address] [place], [address] MCH (RBC) [Entitic mass] 28.1 pg Normal 27.0-32.0 [facility] Comment on above: Performed By: #### L 500.2500, L100.0100, L501.5200, L501.9520 #### [facility] [address] [place], [address] MCHC (RBC) [Mass/Vol] 32.9 g/dL Normal 32-36 [facility] Comment on above: Performed By: #### L 500.2500, L100.0100, L501.5200, L501.9520 #### [facility] [address] [place], [address] MCV (RBC) [Entitic vol] 85.5 fL Normal 81-99 [facility] Comment on above: Performed By: #### L 500.2500, L100.0100, L501.5200, L501.9520 #### [facility] [address] [place], [address] Monocytes/100 WBC (Bld) 9.1 % Normal 0-10 [facility] Comment on above: Performed By: #### L 500.2500, L100.0100, L501.5200, L501.9520 #### [facility] [address] [place], [address] Neutrophils/100 WBC (Bld) 51.1 % Normal 47-70 [facility] Comment on above: Performed By: #### L 500.2500, L100.0100, L501.5200, L501.9520 #### [facility] [address] [place], [address] Nucleated RBC (Bld) [#/Vol] 0 10*3/uL Normal 0-5 [facility] Comment on above: Performed By: #### L 500.2500, L100.0100, L501.5200, L501.9520 #### [facility] [address] [place], [address] Platelet mean volume (Bld) [Entitic vol] 9.3 fL Normal 6.2-12.0 [facility] Comment on above: Performed By: #### L 500.2500, L100.0100, L501.5200, L501.9520 #### [facility] [address] [place], [address] Platelets (Bld) [#/Vol] 291 10*3/uL Normal 150-450 [facility] Comment on above: Performed By: #### L 500.2500, L100.0100, L501.5200, L501.9520 #### [facility] [address] [place], [address] RBC (Bld) [#/Vol] 4.55 10*6/uL Normal 4.2-5.[address] [facility] Comment on above: Performed By: #### L 500.2500, L100.0100, L501.5200, L501.9520 #### [facility] [address] [place], [address] RDW SD 42.4 fl Normal 35.1-43.9 [facility] Comment on above: Performed By: #### L 500.2500, L100.0100, L501.5200, L501.9520 #### [facility] [address] [place], [address] WBC (Bld) [#/Vol] 8.3 10*3/uL Normal 4.4-11.0 [facility] Comment on above: Performed By: #### L 500.2500, L100.0100, L501.5200, L501.9520 #### [facility] [address] [place], [address] Chest PA and Lateralon 03-18 Chest PA and Lateral [facility] Imaging Services [address] [place] [address] Chest PA and Lateral MR#: [id number] Acct: [id number] Name: SAUD SIMPSON Rep #: [id number] : 2000 F 24 From: Awais Cai MD PCP: Dr. Harini Wesley MD Status: REG ER Study: Chest PA and Lateral Date of Exam: 03/18/25 Exam# [id number] Ordering Dr: Luís Mason DO PROCEDURE: CHEST PA AND LATERAL 03/18/2025 REASON FOR EXAM: CHEST PAIN TECHNIQUE: Procedure Code: RADCXR Modality: DX Procedure: CHEST PA AND LATERAL COMPARISON: 06/12/2023 FINDINGS: Lungs/Pleura: Clear. No pneumothorax or pleural effusion. Heart/Mediastinum: Normal in size. Bones/Soft tissues: Unremarkable. RAD/Chest PA and Lateral IMPRESSION: No acute cardiopulmonary disease. Reading Location: [facility] CC: Dr. Harini Wesley MD; Luís Mason DO Rehabilitation Aide/Scheduler: Signed Normal [facility] L501.4021on 03-18-2025 Trop T High Sen < 6 Normal <=14 [facility] Comment on above: Performed By: #### L 501.4021 #### [facility] [address] [place], [address] Magnesiumon 03-18-2025 Magnesium [Mass/Vol] 2.2 mg/dL Normal 1.5-2.2 [facility] Comment on above: Performed By: #### L 500.2500, L100.0100, L501.5200, L501.9520 ####[facility] [address] [place], [address] ,Serum,hCG Quali.on 03-18-2025 HCG, SERUM QUAL Negative Normal [facility] Comment on above: Performed By: #### L 700.6800 ####[facility] [address] [place], [address] Thyroid Stim Hormone (TSH)on 03-18-2025 TSH 2.520 uIU/mL Normal 0.300-4.200 [facility] Comment on above: Performed By: #### L 500.2500, L100.0100, L501.5200, L501.9520 ####[facility] [address] [place], [address] Abdomen/Pelvis without Conto n 03-05-2025 Abdomen/Pelvis without Cont [facility] Imaging Services [address] [place] [address] Abdomen/Pelvis without Cont MR#: [id number] Acct: [id number] Name: SAUD SIMPSON Rep #: [id number] : 2000 F 24 From: Awais Cai MD PCP: Dr. Harini Wesley MD Status: REG ER Study: Abdomen/Pelvis without Cont Date of Exam: 02/22 08/18 Exam# [id number] Ordering Dr: Jayce Connolly DO PROCEDURE: CT [...] tract calculi or hydroureteronephrosis . Reading Location: [facility] CC: Dr. Harini Wesley MD; Dr. Jayce Connolly DO Rehabilitation Aide/Scheduler: Signed Normal [facility] CBC W/Diff, Automatedon 02-22 Absolute Lymph 2.89 X10 3/uL Normal 0.83-4.51 [facility] Comment on above: Performed By: #### L 700.6800, L500.4050, L100.0100 #### [facility] [address] [place], [address] Absolute Neut 4.8 X10 3/uL Normal 2.0-7.7 [facility] Comment on above: Performed By: #### L 700.6800, L500.4050, L100.0100 #### [facility] [address] [place], [address] Basophils/100 WBC (Bld) 0.8 % Normal 0-1 [facility] Comment on above: Performed By: #### L 700.6800, L500.4050, L100.0100 #### [facility] [address] [place], [address] Eosinophils/100 WBC (Bld) 2.5 % Normal 0-5 [facility] Comment on above: Performed By: #### L 700.6800, L500.4050, L100.0100 #### [facility] [address] [place], [address] Erythrocyte distribution width (RBC) [Ratio] 13.5 % Normal 11.6-14.6 [facility] Comment on above: Performed By: #### L 700.6800, L500.4050, L100.0100 #### [facility] [address] [place], [address] Hematocrit (Bld) [Volume fraction] 39.1 % Normal 37-47 [facility] Comment on above: Performed By: #### L 700.6800, L500.4050, L100.0100 #### [facility] [address] [place], [address] Hemoglobin (Bld) [Mass/Vol] 12.5 g/dL Normal 12.0-15.0 [facility] Comment on above: Performed By: #### L 700.6800, L500.4050, L100.0100 #### [facility] [address] [place], [address] IG% 0.200 Normal 0.0-0.9 [facility] Comment on above: Result Comment: IG% - Immature Granulocytes (promyelocytes, myelocytes and metamyelocytes) > 1% indicates that a LEFT SHIFT is Present. Performed By: #### L 700.6800, L500.4050, L100.0100 #### [facility] [address] [place], [address] Lymphocytes/100 WBC (Bld) 33.4 % Normal 19-41 [facility] Comment on above: Performed By: #### L 700.6800, L500.4050, L100.0100 #### [facility] [address] [place], [address] MCH (RBC) [Entitic mass] 27.2 pg Normal 27.0-32.0 [facility] Comment on above: Performed By: #### L 700.6800, L500.4050, L100.0100 #### [facility] [address] [place], [address] MCHC (RBC) [Mass/Vol] 32.0 g/dL Normal 32-36 [facility] Comment on above: Performed By: #### L 700.6800, L500.4050, L100.0100 #### [facility] [address] [place], [address] MCV (RBC) [Entitic vol] 85.0 fL Normal 81-99 [facility] Comment on above: Performed By: #### L 700.6800, L500.4050, L100.0100 #### [facility] [address] [place], [address] Monocytes/100 WBC (Bld) 7.9 % Normal 0-10 [facility] Comment on above: Performed By: #### L 700.6800, L500.4050, L100.0100 #### [facility] [address] [place], [address] Neutrophils/100 WBC (Bld) 55.2 % Normal 47-70 [facility] Comment on above: Performed By: #### L 700.6800, L500.4050, L100.0100 #### [facility] [address] [place], [address] Nucleated RBC (Bld) [#/Vol] 0 10*3/uL Normal 0-5 [facility] Comment on above: Performed By: #### L 700.6800, L500.4050, L100.0100 #### [facility] [address] [place], [address] Platelet mean volume (Bld) [Entitic vol] 8.9 fL Normal 6.2-12.0 [facility] Comment on above: Performed By: #### L 700.6800, L500.4050, L100.0100 #### [facility] [address] [place], [address] Platelets (Bld) [#/Vol] 300 10*3/uL Normal 150-450 [facility] Comment on above: Performed By: #### L 700.6800, L500.4050, L100.0100 #### [facility] [address] [place], [address] RBC (Bld) [#/Vol] 4.60 10*6/uL Normal 4.2-5.[address] [facility] Comment on above: Performed By: #### L 700.6800, L500.4050, L100.0100 #### [facility] [address] [place], [address] RDW SD 41.7 fl Normal 35.1-43.9 [facility] Comment on above: Performed By: #### L 700.6800, L500.4050, L100.0100 #### [facility] [address] [place], [address] WBC (Bld) [#/Vol] 8.7 10*3/uL Normal 4.4-11.0 [facility] Comment on above: Performed By: #### L 700.6800, L500.4050, L100.0100 #### [facility] [address] [place], [address] Comprehensive Metabolic Prof dcon 03-05-2025 Albumin [Mass/Vol] 4.3 g/dL Normal 3.5-5.0 [facility] Comment on above: Performed By: #### L 700.6800, L500.4050, L100.0100 #### [facility] [address] [place], [address] Albumin/Globulin [Mass ratio] 1.3 {ratio} Normal 0.9-2.4 [facility] Comment on above: Performed By: #### L 700.6800, L500.4050, L100.0100 #### [facility] [address] [place], [address] ALK PHOS 53 U/L Normal 35-104 [facility] Comment on above: Performed By: #### L 700.6800, L500.4050, L100.0100 #### [facility] [address] [place], [address] ALT [Catalytic activity/Vol] 11 U/L Normal <=34 [facility] Comment on above: Performed By: #### L 700.6800, L500.4050, L100.0100 #### [facility] [address] [place], [address] AST [Catalytic activity/Vol] 18 U/L Normal <=31 [facility] Comment on above: Performed By: #### L 700.6800, L500.4050, L100.0100 #### [facility] [address] [place], [address] Bilirubin [Mass/Vol] 0.24 mg/dL Normal 0.00-1.30 [facility] Comment on above: Performed By: #### L 700.6800, L500.4050, L100.0100 #### [facility] [address] [place], [address] BUN/CRE 19.1 RATIO Normal 10-20 [facility] Comment on above: Performed By: #### L 700.6800, L500.4050, L100.0100 #### [facility] [address] [place], [address] Calcium [Mass/Vol] 9.4 mg/dL Normal 7.6-11.0 [facility] Comment on above: Performed By: #### L 700.6800, L500.4050, L100.0100 #### [facility] [address] [place], [address] Chloride [Moles/Vol] 105 mmol/L Normal 98-108 [facility] Comment on above: Performed By: #### L 700.6800, L500.4050, L100.0100 #### [facility] [address] [place], [address] CO2 [Moles/Vol] 25.0 mmol/L Normal 21.0-32.0 [facility] Comment on above: Performed By: #### L 700.6800, L500.4050, L100.0100 #### [facility] [address] [place], [address] Creatinine [Mass/Vol] 0.74 mg/dL Normal 0.70-1.20 [facility] Comment on above: Performed By: #### L 700.6800, L500.4050, L100.0100 #### [facility] [address] [place], [address] ECRCL 110.60 ml/min Normal 50-250 [facility] Comment on above: Performed By: #### L 700.6800, L500.4050, L100.0100 #### [facility] [address] [place], [address] GAP 9 Normal 5-15 [facility] Comment on above: Performed By: #### L 700.6800, L500.4050, L100.0100 #### [facility] [address] [place], [address] GFR/1.73 sq M.predicted among non-blacks MDRD (S/P/Bld) [Vol rate/Area] 115 mL/min/{1.73_m2} Normal >60 [facility] Comment on above: Result Comment: mL/m in/1.73m2 CKD-EPI Creatinine Equation (2020) Performed By: #### L 700.6800, L500.4050, L100.0100 #### [facility] [address] [place], [address] Globulin (S) [Mass/Vol] 3.3 g/dL Normal 2.2-4.2 [facility] Comment on above: Performed By: #### L 700.6800, L500.4050, L100.0100 #### [facility] [address] [place], [address] Glucose [Mass/Vol] 97 mg/dL Normal 70-99 [facility] Comment on above: Performed By: #### L 700.6800, L500.4050, L100.0100 #### [facility] [address] [place], [address] Potassium [Moles/Vol] 3.9 mmol/L Normal 3.3-5.1 [facility] Comment on above: Performed By: #### L 700.6800, L500.4050, L100.0100 #### [facility] [address] [place], [address] Sodium [Moles/Vol] 139 mmol/L Normal 133-145 [facility] Comment on above: Performed By: #### L 700.6800, L500.4050, L100.0100 #### [facility] [address] [place], [address] T PROT 7.6 g/dL Normal 5.9-8.4 [facility] Comment on above: Performed By: #### L 700.6800, L500.4050, L100.0100 #### [facility] [address] [place], [address] Urea nitrogen [Mass/Vol] 14 mg/dL Normal 4-19 [facility] Comment on above: Performed By: #### L 700.6800, L500.4050, L100.0100 #### [facility] [address] [place], [address] Emergency Department Summary on 03-05-2025 Emergency Department Summary [facility] Medical Records Department [address] [place] [address] Emergency Department Summary 03/05/25 MR#: [id number] Acct: [id number] Name: SAUD SIMPSON Rep #: [id number] : 2000 24 From: Jayce Connolly DO [...] hematuria. Patient denies any fevers or chills. [facility] Medical History depression Depression Family history of [...] dehydration, electrolyte (more content not included)... Normal [facility] ,Serum,hCG Quali.on 03-05-2025 HCG, SERUM QUAL Negative Normal [facility] Comment on above: Performed By: #### L 700.6800, L500.4050, L100.0100 #### [facility] [address] [place], [place], [address] Urinalysis, Completeon 03-05 EPI,SQUAMOUS 0-5 SEEN Normal 5-10 [facility] Comment on above: Order Comment: COLLE CTOR TO SPECIFY Performed By: #### L 400.0001 #### [facility] [address] [place], [place], [address] RBC 0-5 SEEN Normal 0-5 [facility] Comment on above: Order Comment: COLLE CTOR TO SPECIFY Performed By: #### L 400.0001 #### [facility] [address] [place], [address] WBC 0-5 SEEN Normal 0-5 [facility] Comment on above: Order Comment: COLLE CTOR TO SPECIFY Performed By: #### L 400.0001 #### [facility] [address] [facility] [address] BACTERIA 0 SEEN Normal None Seen [facility] Comment on above: Order Comment: COLLE CTOR TO SPECIFY Performed By: #### L 400.0001 #### [facility] [address] [place], [address] Mucus Ql (Urine sed) 0 SEEN Normal [facility] Comment on above: Order Comment: COLLE CTOR TO SPECIFY Performed By: #### L 400.0001 #### [facility] [address] [place], [address] Emergency Department Summary on 07-27-2024 Emergency Department Summary [facility] Medical Records Department [address] [facility] [place] [address] Emergency Department Summary 07/27/24 MR#: [id number] Acct: [id number] Name: SAUD SIMPSON Rep #: [id number] : 2000 23 From: Jose D Blanchard PCP: Dr. Harini Wesley MD Status:DEP ER Location: ED HPI History of Present Illness Chief Complaint: Laceration Informant: patient Narrative Narrative: Lmtxp-broy-uruxjqvr presents work-related injury occurring 2 days ago. Using tomato slicer which she cut the tip of her thumb. She has been having to work and would reopen. 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 Her tetanus is up-to-date. No anticoagulants. [facility] Medical History depression Depression Family history of [...] was generated (more content not included)... Normal [facility] Brain/Head without Contrasto n 06-24-2024 Brain/Head without Contrast [facility] Imaging Services [address] [place], [place] [address] Brain/Head without Contrast MR#: [id number] Acct: [id number] Name: SAUD SIMPSON Rep #: [id number] : 2000 F 23 From: Lewis Garcia MD PCP: Care Physician,No Primary Status: REG ER Study: Brain/Head without Contrast Date of Exam: 07/18 Exam# [id number] Ordering Dr: Luís Mason DO [id number] EXAM: CT HEAD WITHOUT INTRAVENOUS CONTRAST CLINICAL [...] Luís Mason DO; No Primary Care Physician Rehabilitation Aide/Scheduler: Signed Normal [facility] Emergency Department Summary on 06-24-2024 Emergency Department Summary [facility] Medical Records Department [address] [place] [address] Emergency Department Summary 06/24/24 MR#: [id number] Acct: [id number] Name: SAUD SIMPSON Rep #: [id number] : 2000 23 From: Luís Mason DO PCP: Care Physician,No Primary Status:REG ER Location: ED ADDENDUM by Dr. Jayce Connolly DO on 06/24/24 at 0855 Care of the patient was turned over to me pending CT scan. CT scan of the [...] agreeable plan. All questions were answered. 06/24/24 0874 Cosigner Signature (if applicable): cc: No Primary [...] and light sensitivity. She states she took gfhn-qxn-kfnaouz medication without symptom improvement and secondary to this comes in for evaluation [facility] Medical History depression Depression Family history of [...] to auscul (more content not included)... Normal [facility]SUD [facility] ([id number]) 89 F Date Time Provider Department 03/26/24 [...] Status:Closed by DIANA ANDERSON on 03/27/24 Normal [facility] C. trachomatis+N. gonorrhoea e DNA JAVIER+probe Ql (Unsp spec)on 11-25-2023 C. trachomatis rRNA JAVIER+probe Ql (Unsp spec) Negative Negative for Chlamydia trachomatis by amplificaton [facility] Interpretation and review of laboratory results Normal [facility] N. gonorrhoeae rRNA JAVIER+probe Ql (Unsp spec) Negative Negative for Neisseria gonorrhoeae by amplification [facility] C. trachomatis rRNA JAVIER+probe Ql (Unsp spec) Negative Normal Negative for Chlamydia trachomatis by amplificaton [facility] Comment on above: Order Comment: Speci men Type: SWABOrdering Facility: [facility] Address: [address] [place] [address] Performed By: #### 3 6902-5, TRVAMP ####[facility] LABCLIA [id number] [address] [place] N. gonorrhoeae rRNA JAVIER+probe Ql (Unsp spec) Negative Normal Negative for Neisseria gonorrhoeae by amplification [facility] Comment on above: Order Comment: Speci men Type: SWABOrdering Facility: [facility] Address: [address] [place] [address] Performed By: #### 3 6902-5, TRVAMP ####[facility] LABCLIA [id number] [address] [place] CNOVon 11-25-2023 CNOV Office Visit (OBGYWM ) SAUD SIMPSON ([id number]) 89 F Date Time Provider Department 11/25/23 10:30 AM WOLFGANG NGUYEN OBGYWM During your visit today, we recorded the following information about you: Blood pressure Weight Last Period 110/60 80.7 kg 11/16/23 Wolfgang Nguyen MD 11/25/2023 10:55 AM Signed Fly Finisher offered: Patient accepts, visit chaperoned by ma. Saud Shoemaker Calvin is a 22 year old female who presents for problem visit for potential STI exposure.. HPI: Potential STI exposure from allege to have had unprotected sex with a bisexual individual rumored to have HIV. OB History T2 L2 SAB4 IAB0 Ectopic0 Multiple0 Live Births2 Fitness Worker History LMP: 07/09/2023 (Exact Date), Unknown Age at Menarche: Age at First : Age at Menopause: Fitness Worker History Comments: Sexual Activity: Yes; Male Contraception: [...] by mouth once daily. Norethin Diogenes-Eth Estrad-FE (JUNE ,) 1 mg-20 mcg (21)/75 mg (7) [...] external genitalia normal, normal Bartholin's glands, urethra, [place]on's glands, no vulvar lesions, no cervical lesions, [...] STD (se (more content not included)... Normal [facility] HBV surface Ag Ser Qlon 06-0 HBV surface Ag Ql (S) Negative Normal Negative [facility] Comment on above: Order Comment: Speci men Type: BLOOD SPECIMENOrdering Facility: [facility] Address: [address] [place] [address] Performed By: #### 3 1201-7, 32754-6, 5-3 ####[facility] LABCLIA [id number] [place] [address] [place] HCV Ab Ser Qlon 11-25-2023 HCV Ab Ql (S) Negative Normal Negative [facility] Comment on above: Order Comment: Speci men Type: BLOOD SPECIMENOrdering Facility: [facility] Address: [address] [place] [address] Result Comment: The result suggests no evidence of active infection with Hepatitis C virus. Should recent infection be suspected, repeat testing may be considered 4-6 weeks after this draw. Performed By: #### 1 6128-1 ####[facility] LABCLIA [id number] [place] [address] [place] HIV 1+2 Ab IA Qlon HIV 1 and 2 Ab IA.rapid Nom (S/P/Bld) Normal [facility] Comment on above: Order Comment: Speci men Type: BLOOD SPECIMENOrdering Facility: [facility] Address: [address] [place] [address] Result Comment: Test not indicated. Performed By: #### 3 1201-7, 75831-3, 5194-08 ####[facility] LABCLIA [id number] [place] [address] [place] HIV 1+2 Ab+HIV1 p24 Ag IA Ql Non-Reactive Normal Nonreactive [facility] Comment on above: Order Comment: Speci men Type: BLOOD SPECIMENOrdering Facility: [facility] Address: [address] [place] [address] Performed By: #### 3 1201-7, 97471-9, 3 ####[facility] LABCLIA [id number] [place] [address] [place] HIV immunoassay testing algorithm interpretation (S/P/Bld) [Interp] Normal [facility] Comment on above: Order Comment: Speci men Type: BLOOD SPECIMENOrdering Facility: [facility] Address: [address] [place] [address] Result Comment: No e vidence of HIV-1 or HIV-2 infection. Should recent infection be suspected, repeat testing may be considered 2-3 weeks after this draw. [place] Rev. Code 3701.243(E): This information has been [...] or diagnoses. Performed By: #### 3 1201-7, 93628-6, 5195-3 ####[facility] LABIA [id number] [place] [address] [place] Reagin and Treponema pallidu m IgG and IgM [Interp]on 11-25-2023 T. pallidum IgG+IgM IA Ql (S) Non-Reactive Normal Nonreactive [facility] Comment on above: Order Comment: Speci men Type: BLOOD SPECIMENOrdering Facility: [facility] Address: [address] [place] [address] Performed By: #### 3 1201-7, 96657-9, 5194-3 ####[facility] LABIA [id number] [place] [address] [place] Reagin+T pallidum IgG+IgM Se rPl-Impon 11-25-2023 Reagin and Treponema pallidum IgG and IgM [Interp] Cannot exclude recent Treponemal infection if specimen collected within 7-10 days after appearance of suspect lesions or 2-3 weeks after an exposure. Clinical correlation is required. Normal [facility] Comment on above: Order Comment: Speci men Type: BLOOD SPECIMENOrdering Facility: [facility] Address: [address] [place] [address] Performed By: #### 3 1201-7, 18823-5, 51953 ####[facility] LABCLIA [id number] [address] [place] TRICHOMONAS VAGINALIS NAATon 11-25-2023 Interpretation and review of laboratory results Normal [facility] T. vaginalis DNA JAVIER+probe Ql (Unsp spec) Negative Negative for Trichomonas vaginalis by amplification [facility] T. vaginalis DNA JAVIER+probe Ql (Unsp spec) Negative Normal Negative for Trichomonas vaginalis by amplification [facility] Comment on above: Order Comment: Speci men Type: SWABOrdering Facility: [facility] Address: [address] [place] [address] Performed By: #### 3 6902-5, TRVAFREYA ####[facility] LABCLIA [id number] [address] [place] CNOVon 06-12-2023 CNOV Office Visit (UCWSTR ) SAUD SIMPSON ([id number]) 89 F Date Time Provider Department 06/12/23 4:30 PM [facility] During your visit today, we recorded [...] presentation [O32.1XX0] 04/22/2023 Encounter Status:Closed by CONSTANCE MONCAAD on 06/12/23 Normal [facility] CBC panel Auto (Bld)on 06-10 Erythrocyte distribution width (RBC) [Ratio] 12.5 % Normal 11.5-15.0 [facility] Comment on above: Order Comment: Speci men Type: BLOOD SPECIMENOrdering Facility: [facility] Address: [address] [place] [address] Performed By: #### 5 8410-2 ####[facility]ITALKimo [id number] [place] [address] [place] Hematocrit (Bld) [Volume fraction] 39.2 % Normal 36.0-46.0 [facility] Comment on above: Order Comment: Speci men Type: BLOOD SPECIMENOrdering Facility: [facility] Address: [address] [place] [address] Performed By: #### 5 8410-2 ####[facility] [id number] [place] [address] [place] Hemoglobin (Bld) [Mass/Vol] 12.8 g/dL Normal 11.5-15.5 [facility] Comment on above: Order Comment: Speci men Type: BLOOD SPECIMENOrdering Facility: [facility] Address: [address] [place] [address] Performed By: #### 5 8410-2 ####[facility] [id number] [place] [address] [place] MCH (RBC) [Entitic mass] 29.0 pg Normal 26.0-34.0 [facility] Comment on above: Order Comment: Speci men Type: BLOOD SPECIMENOrdering Facility: [facility] Address: [address] [place] [address] Performed By: #### 5 8410-2 ####[facility]ENTERTACHO [id number] [place] [address] [place] MCHC (RBC) [Mass/Vol] 32.7 g/dL Normal 30.5-36.0 [facility] Comment on above: Order Comment: Speci men Type: BLOOD SPECIMENOrdering Facility: [facility] Address: [address] [place] [address] Performed By: #### 5 8410-2 ####[facility]ITALTRACEE [id number] [place] [address] [place] MCV (RBC) [Entitic vol] 88.9 fL Normal 80.0-100.0 [facility] Comment on above: Order Comment: Speci men Type: BLOOD SPECIMENOrdering Facility: [facility] Address: [address] [place] [address] Performed By: #### 5 8410-2 ####[facility] [id number] [place] [address] [place] Nucleated RBC (Bld) [#/Vol] 10*3/uL Normal <0.01 [facility] Comment on above: Order Comment: Speci men Type: BLOOD SPECIMENOrdering Facility: [facility] Address: [address] [place] [address] Performed By: #### 5 8410-2 ####[facility]OSPITALJOVANILI [id number] [place] [address] [place] Platelet mean volume (Bld) [Entitic vol] 8.9 fL Low 9.0-12.7 [facility] Comment on above: Order Comment: Speci men Type: BLOOD SPECIMENOrdering Facility: [facility] Address: [address] [place] [address] Performed By: #### 5 8410-2 ####[facility]ITALNCLIA [id number] [place] [address] [place] Platelets (Bld) [#/Vol] 297 10*3/uL Normal 150-400 [facility] Comment on above: Order Comment: Speci men Type: BLOOD SPECIMENOrdering Facility: [facility] Address: [address] [place] [address] Performed By: #### 5 8410-2 ####[facility]ITALNCLIA [id number] [place] [address] [place] RBC (Bld) [#/Vol] 4.41 10*6/uL Normal 3.90-5.20 [facility] Comment on above: Order Comment: Speci men Type: BLOOD SPECIMENOrdering Facility: [facility] Address: [address] [place] [address] Performed By: #### 5 8410-2 ####[facility] HOSPITALNCA [id number] [place] [address] [place] WBC (Bld) [#/Vol] 6.63 10*3/uL Normal 3.70-11.00 [facility] Comment on above: Order Comment: Speci men Type: BLOOD SPECIMENOrdering Facility: [facility] Address: [address] [place] [address] Performed By: #### 5 8410-2 ####[facility]ITALNCLIA [id number] [place] [address] [place] Bacteria Wnd Culton 06-03-20 23 Bacteria identified Cx Nom (Wound) ORGANISM ID: 1 Rare skin rock GRAM STAIN: No organisms seen No Polymorphonuclear Leukocytes Normal [facility] Comment on above: Performed By: #### 6 462-6 ####[facility] LABCLIA [id number] [place] [address] [place] CNOVon 06-03-2023 CNOV Office Visit (UCWSTR ) SAUD SIMPSON ([id number]) 89 F Date Time Provider Department 06/03/23 5:15 PM ALAN VARGAS [facility] During your visit today, we recorded [...] CULTURE WITH GRAM STAIN [SQWCUL] Order #: [id number]. #:[id number] Prescriptions as of 06/03/2023 - ferrous sulfate [...] NYSTATIN 100,000 (more content not included)... Normal [facility] CBC W Auto Differential pane l (Bld)on 05-09-2023 Basophils (Bld) [#/Vol] 0.05 10*3/uL <0.11 k/uL [facility] Basophils/100 WBC (Bld) 0.6 % [facility] Differential cell count method Nom (Bld) Auto [facility] Eosinophils (Bld) [#/Vol] 0.16 10*3/uL <0.46 k/uL [facility] Eosinophils/100 WBC (Bld) 1.9 % [facility] Erythrocyte distribution width (RBC) [Ratio] 13.6 % 11.5 - 15.0 % [facility] Hematocrit (Bld) [Volume fraction] 34.1 % Low 36.0 - 46.0 % [facility] Hemoglobin (Bld) [Mass/Vol] 11.0 g/dL Low 11.5 - 15.5 g/dL [facility] Immature granulocytes (Bld) [#/Vol] 0.03 10*3/uL <0.10 k/uL [facility] Immature granulocytes/100 WBC (Bld) 0.4 % [facility] Lymphocytes (Bld) [#/Vol] 1.79 10*3/uL 1.00 - 4.00 k/uL [facility] Lymphocytes/100 WBC (Bld) 21.6 % [facility] MCH (RBC) [Entitic mass] 30.1 pg 26.0 - 34.0 pg [facility] MCHC (RBC) [Mass/Vol] 32.3 g/dL 30.5 - 36.0 g/dL [facility] MCV (RBC) [Entitic vol] 93.4 fL 80.0 - 100.0 fL [facility] Monocytes (Bld) [#/Vol] 0.53 10*3/uL <0.87 k/uL [facility] Monocytes/100 WBC (Bld) 6.4 % [facility] Neutrophils (Bld) [#/Vol] 5.73 10*3/uL 1.45 - 7.50 k/uL [facility] Neutrophils/100 WBC (Bld) 69.1 % [facility] Nucleated RBC (Bld) [#/Vol] <0.01 k/uL [facility] Nucleated RBC/100 WBC (Bld) [Ratio] 0.0 /100 WBC [facility] Platelet mean volume (Bld) [Entitic vol] 8.4 fL Low 9.0 - 12.7 fL [facility] Platelets (Bld) [#/Vol] 304 10*3/uL 150 - 400 k/uL [facility] RBC (Bld) [#/Vol] 3.65 10*6/uL Low 3.90 - 5.20 m/uL [facility] WBC (Bld) [#/Vol] 8.29 10*3/uL 3.70 - 11.00 k/u L [facility] Basophils (Bld) [#/Vol] 0.05 10*3/uL Normal <0.11 [facility] Comment on above: Order Comment: Speci men Type: BLOOD SPECIMENOrdering Facility: [facility] Address: [address] [place] [address] Performed By: #### 5 7021-8 ####[facility] MILLWNCLIA [id number] [place] [address] [place] Basophils/100 WBC (Bld) 0.6 % Normal [facility] Comment on above: Order Comment: Speci men Type: BLOOD SPECIMENOrdering Facility: [facility] Address: [address] [place] [address] Performed By: #### 5 7021-8 ####[facility] CENTERLIA [id number] [place] [address] [place] Differential cell count method Nom (Bld) Auto Normal [facility] Comment on above: Order Comment: Speci men Type: BLOOD SPECIMENOrdering Facility: [facility] Address: [address] [place] [address] Performed By: #### 5 7021-8 ####[facility]ENTERLIA [id number] [place] [address] [place] Eosinophils (Bld) [#/Vol] 0.16 10*3/uL Normal <0.46 [facility] Comment on above: Order Comment: Speci men Type: BLOOD SPECIMENOrdering Facility: [facility] Address: [address] [place] [address] Performed By: #### 5 7021-8 ####[facility] CENTERLIA [id number] [place] [address] [place] Eosinophils/100 WBC (Bld) 1.9 % Normal [facility] Comment on above: Order Comment: Speci men Type: BLOOD SPECIMENOrdering Facility: [facility] Address: [address] [place] [address] Performed By: #### 5 7021-8 ####[facility]ITALNCLIA [id number] [place] [address] [place] Erythrocyte distribution width (RBC) [Ratio] 13.6 % Normal 11.5-15.0 [facility] Comment on above: Order Comment: Speci men Type: BLOOD SPECIMENOrdering Facility: [facility] Address: [address] [place] [address] Performed By: #### 5 7021-8 ####[facility] HOSPITALNCLI [id number] [place] [address] [place] Hematocrit (Bld) [Volume fraction] 34.1 % Low 36.0-46.0 [facility] Comment on above: Order Comment: Speci men Type: BLOOD SPECIMENOrdering Facility: [facility] Address: [address] [place] [address] Performed By: #### 5 7021-8 ####[facility] HOSPITALNCLI [id number] [place] [address] [place] Hemoglobin (Bld) [Mass/Vol] 11.0 g/dL Low 11.5-15.5 [facility] Comment on above: Order Comment: Speci men Type: BLOOD SPECIMENOrdering Facility: [facility] Address: [address] [place] [address] Performed By: #### 5 7021-8 ####[facility] HOSPITALNCLI [id number] [place] [address] [place] Immature granulocytes (Bld) [#/Vol] 0.03 10*3/uL Normal <0.10 [facility] Comment on above: Order Comment: Speci men Type: BLOOD SPECIMENOrdering Facility: [facility] Address: [address] [place] [address] Performed By: #### 5 7021-8 ####[facility] HOSPITALNCLI [id number] [place] [address] [place] Immature granulocytes/100 WBC (Bld) 0.4 % Normal [facility] Comment on above: Order Comment: Speci men Type: BLOOD SPECIMENOrdering Facility: [facility] Address: [address] [place] [address] Performed By: #### 5 7021-8 ####[facility] CINDYCENTERJARONA [id number] [place] [address] [place] Lymphocytes (Bld) [#/Vol] 1.79 10*3/uL Normal 1.00-4.00 [facility] Comment on above: Order Comment: Speci men Type: BLOOD SPECIMENOrdering Facility: [facility] Address: [address] [place] [address] Performed By: #### 5 7021-8 ####[facility] [id number] [place] [address] [place] Lymphocytes/100 WBC (Bld) 21.6 % Normal [facility] Comment on above: Order Comment: Speci men Type: BLOOD SPECIMENOrdering Facility: [facility] Address: [address] [place] [address] Performed By: #### 5 7021-8 ####[facility] [id number] [place] [address] [place] MCH (RBC) [Entitic mass] 30.1 pg Normal 26.0-34.0 [facility] Comment on above: Order Comment: Speci men Type: BLOOD SPECIMENOrdering Facility: [facility] Address: [address] [place] [address] Performed By: #### 5 7021-8 ####[facility] H[facility]ITALNCLIA [id number] [place] [address] [place] MCHC (RBC) [Mass/Vol] 32.3 g/dL Normal 30.5-36.0 [facility] Comment on above: Order Comment: Speci men Type: BLOOD SPECIMENOrdering Facility: [facility] Address: [address] [place] [address] Performed By: #### 5 7021-8 ####[facility]ENTERLIA [id number] [place] [address] [place] MCV (RBC) [Entitic vol] 93.4 fL Normal 80.0-100.0 [facility] Comment on above: Order Comment: Speci men Type: BLOOD SPECIMENOrdering Facility: [facility] Address: [address] [place] [address] Performed By: #### 5 7021-8 ####[facility] [id number] [place] [address] [place] Monocytes (Bld) [#/Vol] 0.53 10*3/uL Normal <0.87 [facility] Comment on above: Order Comment: Speci men Type: BLOOD SPECIMENOrdering Facility: [facility] Address: [address] [place] [address] Performed By: #### 5 7021-8 ####[facility] [id number] [place] [address] [place] Monocytes/100 WBC (Bld) 6.4 % Normal [facility] Comment on above: Order Comment: Speci men Type: BLOOD SPECIMENOrdering Facility: [facility] Address: [address] [place] [address] Performed By: #### 5 7021-8 ####[facility] [id number] [place] [address] [place] Neutrophils (Bld) [#/Vol] 5.73 10*3/uL Normal 1.45-7.50 [facility] Comment on above: Order Comment: Speci men Type: BLOOD SPECIMENOrdering Facility: [facility] Address: [address] [place] [address] Performed By: #### 5 7021-8 ####[facility] [id number] [place] [address] [place] Neutrophils/100 WBC (Bld) 69.1 % Normal [facility] Comment on above: Order Comment: Speci men Type: BLOOD SPECIMENOrdering Facility: [facility] Address: [address] [place] [address] Performed By: #### 5 7021-8 ####[facility] [id number] [place] [address] [place] Nucleated RBC (Bld) [#/Vol] 10*3/uL Normal <0.01 [facility] Comment on above: Order Comment: Speci men Type: BLOOD SPECIMENOrdering Facility: [facility] Address: [address] [place] [address] Performed By: #### 5 7021-8 ####[facility] [id number] [place] [address] [place] Nucleated RBC/100 WBC (Bld) [Ratio] 0.0 /100 WBC Normal [facility] Comment on above: Order Comment: Speci men Type: BLOOD SPECIMENOrdering Facility: [facility] Address: [address] [place] [address] Performed By: #### 5 7021-8 ####[facility] [id number] [place] [address] [place] Platelet mean volume (Bld) [Entitic vol] 8.4 fL Low 9.0-12.7 [facility] Comment on above: Order Comment: Speci men Type: BLOOD SPECIMENOrdering Facility: [facility] Address: [address] [place] [address] Performed By: #### 5 7021-8 ####[facility] [id number] [place] [address] [place] Platelets (Bld) [#/Vol] 304 10*3/uL Normal 150-400 [facility] Comment on above: Order Comment: Speci men Type: BLOOD SPECIMENOrdering Facility: [facility] Address: [address] [place] [address] Performed By: #### 5 7021-8 ####[facility]ITALNCLIA [id number] [place] [address] [place] RBC (Bld) [#/Vol] 3.65 10*6/uL Low 3.90-5.20 [facility] Comment on above: Order Comment: Speci men Type: BLOOD SPECIMENOrdering Facility: [facility] Address: [address] [place] [address] Performed By: #### 5 7021-8 ####[facility]ITALNCLIA [id number] [place] [address] [place] WBC (Bld) [#/Vol] 8.29 10*3/uL Normal 3.70-11.00 [facility] Comment on above: Order Comment: Speci men Type: BLOOD SPECIMENOrdering Facility: [facility] Address: [address] [place] [address] Performed By: #### 5 7021-8 ####[facility]ITALNCLIA [id number] [place] [address] [facility]UD SIM[facility]ON ([id number]) 89 F Date Time Provider Department 05/07/23 CONSATNCE SUAREZ During your visit today, we recorded [...] Status:Closed by LEXA FELTON RN on 05/07/23 [facility] Taryn 05-01-2023 CNPN Telephone (OBGYWM) SAUD SIMPSON ([id number]) 89 F Date Time Provider Department 05/01/23 SHERIN DECKER OBJACKIE During your visit today, we recorded the [...] Encounter Status:Closed by SHERIN DECKER on 05/01/23 [facility] HISTORY PHYSICALon 3 HISTORY PHYSICAL HNO ID: [id number] Author: Lise Concepcion MD Service: ? Author [...] to proceed with the planned surgery. Lise Concepcion, Medical Decision Making: Problems: Moderate: New problem with uncertain prognosis Risk: High: Decision on elective major surgery w/ risk factors Medical Decision Making Level: 4 - Moderate Normal [facility] URINE OB DIP B/Oon 3 Glucose Ql (U) Negative Neg mg/dL [facility] Protein.monoclonal (U) [Mass/Vol] Negative Neg mg/dL [facility] URINE OB DIP B/Oon 3 Glucose Ql (U) Negative Neg mg/dL [facility] Protein.monoclonal (U) [Mass/Vol] Negative Neg mg/dL [facility] OBSTETRIC ULTRASOUND WHIon 1 [facility] URINE OB DIP B/Oon 3 Glucose Ql (U) Negative Neg mg/dL [facility] Protein.monoclonal (U) [Mass/Vol] Negative Neg mg/dL [facility] ROUTINE, GROUP B ST REP PCRon 04-05-2023 ROUTINE, GROUP B STREP PCR GROUP B STREP PCR: Negative for Group B Streptococcus by PCR. Normal [facility] Comment on above: Performed By: #### G BPCR ####[facility] LABCLIA [id number] [place] [address] [place] [facility] URINE OB DIP B/Oon 3 Glucose Ql (U) Negative Neg mg/dL [facility] Protein.monoclonal (U) [Mass/Vol] Negative Neg mg/dL [facility] FETALon 03-05-2023 ++ - ++ [facility] Echocardi[facility] Report ++ ++ NAME: MISS SAUD SIMPSON : 2000 Age: 22 years Due Date: 07/24/2021 Gender: F Study Date: 03/05/2023 1:43:06 PM GA: 31.40 Requested By: Dr Luís Santacruz. Physician: Dr Keyon Glover Study Location: [facility] Study Quality: The images were of adequate diagnostic quality Diagnosis: O35.9XX1 Maternal care for (suspected) abnormality and damage, unspecified, fetus 1 History: Family history of CHD. Indications: Follow up study. Procedures: 18755 Echo, Complete; 68361 Doppler, Complete; 53639 Doppler Color Flow INTERPRETATION SUMMARY 1. No [...] Glover DO, 03/05/2023 2:41:48 PM. Final CC [facility] : [id number] amicsSISUID See Link below for Image Normal [facility] CNPHetal 02-26-2023 CNPN Telephone ([facility]) CALVINSAUD Shoemaker ([id number]) 89 F Date Time Provider Department 02/26/23 MITRA JACOBSON [facility] During your visit today, we recorded the following information about you: Mitra Jacobson, RN 02/26/2023 9:24 AM Signed Saud called me to reschedule her echo. She stated that her ride is unable to bring her. This is the 3rd time she has rescheduled.I encouraged her to call her insurance to secure a ride for her appt next week. She stated " I do not use [employer] for rides, they are rude to me and told me that they would not give me a ride next time." I encouraged her to come to come [...] Status:Closed by MITRA JACOBSON on 02/26/23 Normal [facility] URINE OB DIP B/Oon 3 Glucose Ql (U) Negative Neg mg/dL [facility] Protein.monoclonal (U) [Mass/Vol] 30 mg/dL Neg mg/dL [facility] URINE OB DIP B/Oon 3 Glucose Ql (U) Negative Neg mg/dL [facility] Protein.monoclonal (U) [Mass/Vol] Negative Neg mg/dL [facility] URINE OB DIP B/Oon 3 Glucose Ql (U) Negative Neg mg/dL [facility] Protein.monoclonal (U) [Mass/Vol] Negative Neg mg/dL [facility] OBSTETRIC ULTRASOUND WHIon 0 01-01-2023 [facility] OBSTETRIC ULTRASOUND WHIon 0 12-11-2022 [facility] NUCHAL TRANSLUCENCY WHIon [facility] URINE OB DIP B/Oon 3 Glucose Ql (U) Negative Neg mg/dL [facility] Protein.monoclonal (U) [Mass/Vol] Negative Neg mg/dL [facility] Group B Strep Screen PCRon 0 11-03-2021 Group B Strep Screen PCR Group B Strep Screen PCR --> Status: F NEGATIVE Expected Result: Negative CDC guidelines for prevention of Group B Strep disease recommends collection of both vaginal and rectal specimens for optimal recovery of GBS. Methodology - Real Time PCR (Cepheid) Expected Result: Negative CDC guidelines for prevention of Group B Strep disease recommends collection of both vaginal and rectal specimens for optimal recovery of GBS. Methodology - Real Time PCR (Cepheid) Normal [facility] Comment on above: Performed By: #### [facility] #### [address] [address] [facility] US Biophy w/o non- stresson 11-03-2021 [facility] US Biophy w/o non-stress Patient Name: SAUD SIMPSON Maternal Medicine ACCESSION EXAM DATE/TIME PROCEDURE ORDERING PROVIDER [id number] 11/03/2021 10:01 EDT [facility] US After JENN FULLER 1st Trimester Reason For Exam ([facility] US After 1st Trimester) kaykay US, UAD, BPP Report ------- OBSTETRICS REPORT (Signed Final 11/03/2021 02:31 pm) ------- PATIENT INFO: ID #: [id number] : [birth year] (20 yrs) Name: SAUD SIMPSON Visit Date: 11/03/2021 10:00 am ------- PERFORMED BY: Attending: Natalie Haynes MD Performed By: Ernie Lozada Referred By: JENN FULLER Location: Inpatient- Hospital Visit Type: Inpatient - Hospital ------- SERVICE(S) PROVIDED: US >= 14 weeks 01253 BPP w/out NST 05190 US Doppler umbilical art 53325 ------- INDICATIONS: FGR ------- VITAL SIGNS: Weight (lb): 169 Height: 4'11" BMI: 34.13 ------- EVALUATION: Num Of Fetuses: [...] Ultrasound ACCESSION EXAM DATE/TIME PROCEDURE ORDERING PROVIDER [id number] 11/03/2021 10:01 EDT [facility] US After JENN FULLER 1st Trimester Reason For Exam ([facility] US After 1st Trimester) kaykay MARCOS, KEEGAN PEDROZA Report ------- OBSTETRICS REPORT (Signed Final 11/03/2021 02:31 pm) ------- PATIENT INFO: ID #: [id number] : [birth year] (20 yrs) Name: SAUD SIMPSON Visit Date: 11/03/2021 10:00 am (more content not included)... [facility] US After 1st T rimesteron 11-03-2021 MF US After 1st Trimester Patient Name: SAUD SIMPSON Maternal Medicine ACCESSION EXAM DATE/TIME PROCEDURE ORDERING PROVIDER [id number] 11/03/2021 10:01 EDT [facility] US After JENN FULLER 1st Trimester Reason For Exam ([facility] US After 1st Trimester) kaykay MARCOS, YOVANY, P Report ------- OBSTETRICS REPORT (Signed Final 11/03/2021 02:31 pm) ------- PATIENT INFO: ID #: [id number] : [birth year] (20 yrs) Name: SAUD SIMPSON Visit Date: 11/03/2021 10:00 am ------- PERFORMED BY: Attending: Natalie Haynes MD Performed By: Ernie Lozada Referred By: JENN FULLER Location: Inpatient- Hospital Visit Type: Inpatient - Hospital ------- SERVICE(S) PROVIDED: US >= 14 weeks 30428 [facility] w/out NST 37246 US Doppler umbilical art 42719 ------- INDICATIONS: FGR ------- VITAL SIGNS: Weight (lb): 169 Height: 4'11" BMI: 34.13 ------- EVALUATION: Num Of Fetuses: [...] is 12.7cm, which is within normal limits. [facility] 01/29 Normal UAD see IP plan [...] Ultrasound ACCESSION EXAM DATE/TIME PROCEDURE ORDERING PROVIDER [id number] 11/03/2021 10:01 EDT [facility] US After JENN FULLER 1st Trimester Reason For Exam ([facility] US After 1st Trimester) kaykay US, UAD, [facility] Report ------- OBSTETRICS REPORT (Signed Final 11/03/2021 02:31 pm) ------- PATIENT INFO: ID #: [id number] : [birth year] (20 yrs) Name: SAUD SIMPSON Visit Date: 11/03/2021 10:00 am (more content not included)... [facility] US Umbilical Artery Echo on 11-03-2021 [facility] US Umbilical Artery Echo Patient Name: SAUD SIMPSON Maternal Medicine ACCESSION EXAM DATE/TIME PROCEDURE ORDERING PROVIDER [id number] 11/03/2021 10:01 EDT [facility] US After JENN FULLER 1st Trimester Reason For Exam ([facility] US After 1st Trimester) kaykay MARCOS, YOVANY, KEEGAN Report ------- OBSTETRICS REPORT (Signed Final 11/03/2021 02:31 pm) ------- PATIENT INFO: ID #: [id number] : [birth year] (20 yrs) Name: SAUD SIMPOSN Visit Date: 11/03/2021 10:00 am ------- PERFORMED BY: Attending: Natalie Haynes MD Performed By: Ernie Lozada Referred By: JENN FULLER Location: Inpatient- Hospital Visit Type: Inpatient - Hospital ------- SERVICE(S) PROVIDED: US >= 14 weeks 99942 BPP w/out NST 44201 US Doppler umbilical art 39204 ------- INDICATIONS: FGR ------- VITAL SIGNS: Weight (lb): 169 Height: 4'11" BMI: 34.13 ------- EVALUATION: Num Of Fetuses: 1 Heart Rate(bpm): 130 Cardiac Activity: Regular rhythm Lie: Longitudinal Presentation: Shireenech Placenta: Fundal Amniotic Fluid ALECIA FV: Within [...] OBDULIA: 01/05/22 U/S Today: 29w 4d OBDULIA: 07/25/22 Best: 31w 0d Det. By: Clinical OBDULIA [...] is 12.7cm, which is within normal limits. [facility] 01/29 Normal UAD see IP plan [...] Ultrasound ACCESSION EXAM DATE/TIME PROCEDURE ORDERING PROVIDER [id number] 11/03/2021 10:01 EDT [facility] US After JENN FULLER 1st Trimester Reason For Exam ([facility] US After 1st Trimester) kaykay MARCOS, YOVANY, KEEGAN Report ------- OBSTETRICS REPORT (Signed Final 11/03/2021 02:31 pm) ------- PATIENT INFO: ID #: [id number] : [birth year] (20 yrs) Name: SAUD SIMPSON Visit Date: 11/03/2021 10:00 am (more content not included)... Normal [facility] TS GELon 11-03-2021 TS GEL ABO Group: O Rh, Gel: NEG Antibody Screen Gel: POS Normal [facility] Comment on above: Performed By: #### T SGL, ABID #### [facility] ANTIBODY IDENTIFICATIONon Antibody ID POS, ANTI D FROM [facility] Comment on above: at [facility]. BMS Antibody Identificationon Antibody Identification Antibody Identification: POS, ANTI D FROM [facility] at [place] [facility]. BMS Normal [facility] Comment on above: Performed By: #### T SGL, ABID #### [facility] CBCon 11-02-2021 Hematocrit (Bld) [Volume fraction] 33.6 % Low 35.0 - 47.0 % [facility] Hemoglobin.gastroint estinal spec 1 Ql (Stl) 11.6 g/dL Low 11.7 - 16.0 g/dL [facility] Interpretation and review of laboratory results Abnormal [...] - 10.7 10*3/uL [facility] Test Performed by [facility], [address] [place] [id number] [place] [address] Comp Metabolic Panelon 11-02 ALT [Catalytic activity/Vol] 25 U/L Normal 0-34 [facility] Comment on above: Result Comment: The ALT test is performed by an updated assay method. Please note that the reference intervals have been changed and are now sex specific. Performed By: #### C MP3 #### [facility] [address] [place], [place] Calcium [Mass/Vol] 9.2 mg/dL Normal 8.4-10.4 [facility] Comment on above: Performed By: #### C MP3 #### [facility] [address], [place] Glucose [Mass/Vol] 75 mg/dL Normal 70-100 [facility] Comment on above: Performed By: #### C MP3 #### [facility] [address], [place] ALP [Catalytic activity/Vol] 72 U/L Normal 38-126 [facility] Comment on above: Performed By: #### C MP3 #### [facility] [address], [place] Anion gap [Moles/Vol] 9 mmol/L Normal 3-13 [facility] Comment on above: Performed By: #### C MP3 #### [place] [address] [address] [facility] [place] AST [Catalytic activity/Vol] 42 U/L Normal 15-46 [facility] Comment on above: Performed By: #### C MP3 #### [facility] [address], [place] Bilirubin [Mass/Vol] 0.5 mg/dL Normal 0.2-1.3 [facility] Comment on above: Performed By: #### C MP3 #### [facility] [address] [facility] [place] CO2 [Moles/Vol] 19 mmol/L Low 22-30 [facility] Comment on above: Performed By: #### C MP3 #### [place] [address] [address], [place] Creatinine [Mass/Vol] 0.51 mg/dL Low 0.52-1.25 [facility] Comment on above: Performed By: #### C MP3 #### [place] [address] [place] [address] eGFR OTHER > 90.0 Normal >60 [facility] Comment on above: Result Comment: KDIG O [...] secretion. Performed By: #### C MP3 #### [place] [address] [place] [address] GFR/1.73 sq M.predicted among blacks MDRD (S/P/Bld) [Vol rate/Area] mL/min/{1.73_m2} Normal >60 [facility] Comment on above: Performed By: #### C MP3 #### [place] [address] [place] [address] Protein [Mass/Vol] 7.0 g/dL Normal 6.3-8.2 [facility] Comment on above: Performed By: #### C MP3 #### [place] [address] [place] [address] Urea nitrogen [Mass/Vol] 6 mg/dL Low 9-20 [facility] Comment on above: Performed By: #### C MP3 #### [address] Potassium [Moles/Vol] 3.7 mmol/L Normal 3.5-5.1 [facility] Comment on above: Performed By: #### C MP3 #### [facility] [address] [place] [address] Albumin [Mass/Vol] 3.6 g/dL Normal 3.5-5.0 [facility] Comment on above: Performed By: #### C MP3 #### [facility] [address] [place] [address] Chloride [Moles/Vol] 107 mmol/L Normal 98-107 [facility] Comment on above: Performed By: #### C MP3 #### [facility] [address] [place] [address] Sodium [Moles/Vol] 136 mmol/L Normal 135-145 [facility] Comment on above: Performed By: #### C MP3 #### [facility] [address] [place] [address] Comprehensive Metabolic Pane casper 11-02-2021 Albumin [Mass/Vol] 3.6 g/dL 3.5 - 5.0 g/dL [facility] ALP (Bld) [Catalytic activity/Vol] 72 U/L 38 - 126 U/L [facility] ALT [Catalytic activity/Vol] 25 U/L 0 - 34 U/L [facility] Comment on above: The ALT test is [...] - 1.25 mg/dL [facility] EGFR IF NonAfrican [place] >90.0 >60 mL/min [facility] Comment on above: KDIGO guidelines pro vide [...] 6 mg/dL Low 9 - 20 mg/dL [facility] Test Performed by [facility], [address] [place] [address] LAB [facility] Hemogramon 11-02-2021 Erythrocyte distribution width (RBC) [Ratio] 13.6 % Normal 11.5-14.5 [facility] Comment on above: Performed By: #### H EMOG #### [address] [id number] Hematocrit (Bld) [Volume fraction] 33.6 % Low 35.0-47.0 [facility] Comment on above: Performed By: #### H EMOG #### [address] [id number] Hemoglobin (Bld) [Mass/Vol] 11.6 g/dL Low 11.7-16.0 [facility] Comment on above: Performed By: #### H EMOG #### [facility] [address], [place] MCH (RBC) [Entitic mass] 31.0 pg Normal 26.0-34.0 [facility] Comment on above: Performed By: #### H EMOG #### [facility] [address], [place] MCHC 34.6 % Normal 32.0-36.0 [facility] Comment on above: Performed By: #### H EMOG #### [place] [address], [place] MCV (RBC) [Entitic vol] 89.5 fL Normal 79.0-98.0 [facility] Comment on above: Performed By: #### H EMOG #### [place] [address], [place] Platelet mean volume (Bld) [Entitic vol] 7.3 fL Low 7.4-12.4 [facility] Comment on above: Result Comment: MPV is a calculated measurement using platelet volume ratio. Performed By: #### H EMOG #### [place] [address], [place] Platelets (Bld) [#/Vol] 186 10*3/uL Normal 140-440 [facility] Comment on above: Performed By: #### H EMOG #### [place] [address] [address], [place] RBC (Bld) [#/Vol] 3.75 10*6/uL Low 3.80-5.20 [facility] Comment on above: Performed By: #### H EMOG #### [place] [address], [place] WBC (Bld) [#/Vol] 4.4 10*3/uL Normal 3.6-10.7 [facility] Comment on above: Performed By: #### H EMOG #### [place] [address], [place] No Panel Informationon 05-12 -2022 Test Performed by [facility], [address] [place] [id number] [facility] TYPE AND SCREENon 11-02-2021 ABO Grouping O [facility] Rh Type Negative [facility] Progress Noteon 10-24-2021 Credit Risk Officer Authentication Interface Message Text Reason for Consult/Chief [...] note, she is currently . Saud is 4'11". was complicated by late to care. 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 Of note, she is currently . She saw my colleague Lavern Neville [facility], in July 2020. Saud is 4'11". was complicated by late to care. She [...] of her child. Recommendations and Plan: 1.) [employer] discover dysplasia gene panel 2.) RTC ~2 months for results 45 minutes spent in preparation, during the encounter, and on documentation on day of visit Tony Edwards MD Clinical Non Garment Sewing Machine Operator [facility] Office: [phone] Normal [facility] Progress Noteon 08-10-2021 Credit Risk Officer Authentication Interface Message Text The patient presents for requested ultrasound. Full report available in the "Imaging" tab in Epic. Marc Alejandro MD Normal [facility] Vital Signs Date Time Vital Sign Value Performing Clinician Faci lity 11-25-2023 10:25-0400 Body mass index (BMI) [Ratio] 35.95 kg/m2 Wolfgang Nguyen MD Work Phone: [facility] 11-25-2023 10:25-0400 Body weight 80.74 kg Wolfgang Nguyen MD Work Phone: [facility] 11-25-2023 10:25-0400 Diastolic blood pressure 60 mm[Hg] Wolfgang Nguyen MD Work Phone: [facility] 11-25-2023 10:25-0400 Systolic blood pressure 110 mm[Hg] Wolfgang Nguyen MD Work Phone: [facility] 07-29-2023 16:09-0500 Body weight 79.83 kg Lise Concepcion MD Work Phone: [facility] 07-29-2023 16:09-0500 Diastolic blood pressure 60 mm[Hg] Lise Concepcion MD Work Phone: [facility] 07-29-2023 16:09-0500 Systolic blood pressure 104 mm[Hg] Lise Concepcion MD Work Phone: [facility] 06-03-2023 17:14-0500 Body temperature 98.6 [degF] Alan Vargas MD Work Phone: [facility] 06-03-2023 17:14-0500 Body weight 73.94 kg Alan Vargas MD Work Phone: [facility] 06-03-2023 17:14-0500 Diastolic blood pressure 66 mm[Hg] Alan Vargas MD Work Phone: [facility] 06-03-2023 17:14-0500 Heart rate 100 /min Alan Vargas MD Work Phone: [facility] 06-03-2023 17:14-0500 Respiratory rate 16 /min Alan Vargas MD Work Phone: [facility] 06-03-2023 17:14-0500 SaO2% (BldA) [Mass fraction] 99 % Alan Vargas MD Work Phone: [facility] 06-03-2023 17:14-0500 Systolic blood pressure 108 mm[Hg] Alan Vargas MD Work Phone: [facility] 05-09-2023 10:47-0500 Body weight 71.22 kg Lise Concepcion MD Work Phone: [facility] 05-09-2023 10:47-0500 Diastolic blood pressure 60 mm[Hg] Lise Concepcion MD Work Phone: [facility] 05-09-2023 10:47-0500 Systolic blood pressure 100 mm[Hg] Lise Concepcion MD Work Phone: [facility] 04-22-2023 10:47-0400 Body weight 79.29 kg Lise Concepcion MD Work Phone: [facility] 04-22-2023 10:47-0400 Diastolic blood pressure 60 mm[Hg] Lise Concepcion MD Work Phone: [facility] 04-22-2023 10:47-0400 Systolic blood pressure 100 mm[Hg] Lise Concepcion MD Work Phone: [facility] 04-19-2023 09:48-0400 Body weight 78.93 kg Carole Quintero MD Work Phone: [facility] 04-19-2023 09:48-0400 Diastolic blood pressure 60 mm[Hg] Carole Quintero MD Work Phone: [facility] 04-19-2023 09:48-0400 Systolic blood pressure 102 mm[Hg] Carole Quintero MD Work Phone: [facility] 04-12-2023 08:59-0400 Body weight 78.11 kg Sherin Decker TEN PIN BOWLING CENTRE MANAGER.CNM Work Phone: [facility] 04-12-2023 08:59-0400 Diastolic blood pressure 62 mm[Hg] Sherin Plotts TEN PIN BOWLING CENTRE MANAGER.CNM Work Phone: [facility] 04-12-2023 08:59-0400 Systolic blood pressure 96 mm[Hg] Sherin Decker TEN PIN BOWLING CENTRE MANAGER.CNM Work Phone: [facility] 03-14-2023 13:27-0400 Body weight 78.02 kg Carole Quintero MD Work Phone: [facility] 03-14-2023 13:27-0400 Diastolic blood pressure 64 mm[Hg] Carole Quintero MD Work Phone: [facility] 03-14-2023 13:27-0400 Systolic blood pressure 112 mm[Hg] Carole Quintero MD Work Phone: [facility] 02-05-2023 08:31-0400 Body weight 76.66 kg Carole Quintero MD Work Phone: [facility] 02-05-2023 08:31-0400 Diastolic blood pressure 62 mm[Hg] Carole Quintero MD Work Phone: [facility] 02-05-2023 08:31-0400 Systolic blood pressure 100 mm[Hg] Carole Quintero MD Work Phone: [facility] 01-24-2023 14:20-0400 Body weight 75.84 kg Lise Concepcion MD Work Phone: [facility] 01-24-2023 14:20-0400 Diastolic blood pressure 60 mm[Hg] Lise Concepcion MD Work Phone: [facility] 01-24-2023 14:20-0400 Systolic blood pressure 102 mm[Hg] Lise Concepcion MD Work Phone: [facility] 01-08-2023 09:08-0400 Body weight 76.02 kg Belinda Merom TEN PIN BOWLING CENTRE MANAGER.STRUCTURAL WELDER Work Phone: [facility] 01-08-2023 09:08-0400 Diastolic blood pressure 60 mm[Hg] Belinda Merom TEN PIN BOWLING CENTRE MANAGER.STRUCTURAL WELDER Work Phone: [facility] 01-08-2023 09:08-0400 Systolic blood pressure 82 mm[Hg] Belinda Arnold TEN PIN BOWLING CENTRE MANAGER.STRUCTURAL WELDER Work Phone: [facility] 12-11-2022 09:41-0400 Body weight 76.2 kg Joan Skelton MD Work Phone: [facility] 12-11-2022 09:41-0400 Diastolic blood pressure 60 mm[Hg] Joan Skelton MD Work Phone: [facility] 12-11-2022 09:41-0400 Systolic blood pressure 90 mm[Hg] Joan Skelton MD Work Phone: [facility] 10-16-2022 10:27-0400 Body weight 71.22 kg Carole Quintero MD Work Phone: [facility] 10-16-2022 10:27-0400 Diastolic blood pressure 60 mm[Hg] Carole Quintero MD Work Phone: [facility] 10-16-2022 10:27-0400 Systolic blood pressure 98 mm[Hg] Carole Quintero MD Work Phone: [facility] 10-16-2022 09:51-0400 Body weight 71.4 kg Luís Bland MD Work Phone: [facility] 10-16-2022 09:51-0400 Diastolic blood pressure 60 mm[Hg] Luís Bland MD Work Phone: [facility] 10-16-2022 09:51-0400 Systolic blood pressure 98 mm[Hg] Luís Bland MD Work Phone: [facility] 09-12-2022 08:48-0400 Body weight 77.56 kg Sherin Plotts TEN PIN BOWLING CENTRE MANAGER.CNM Work Phone: [facility] 09-12-2022 08:48-0400 Diastolic blood pressure 62 mm[Hg] Sherin Plotts TEN PIN BOWLING CENTRE MANAGER.CNM Work Phone: [facility] 09-12-2022 08:48-0400 Systolic blood pressure 104 mm[Hg] Sherin Plotts TEN PIN BOWLING CENTRE MANAGER.CNM Work Phone: [facility] 07-20-2022 17:26-0500 Body temperature 99.7 [degF] Elisha Arteaga PA-C Work Phone: [facility] 07-20-2022 17:26-0500 Body weight 76.11 kg Elisha Arteaga PA-C Work Phone: [facility] 07-20-2022 17:26-0500 Diastolic blood pressure 82 mm[Hg] Elisha Athy PA-C Work Phone: [facility] 07-20-2022 17:26-0500 Heart rate 116 /min Elisha Athy PA-C Work Phone: [facility] 07-20-2022 17:26-0500 Respiratory rate 18 /min Elisha Athy PA-C Work Phone: [facility] 07-20-2022 17:26-0500 SaO2% (BldA) [Mass fraction] 100 % Elisha Athy PA-C Work Phone: [facility] 07-20-2022 17:26-0500 Systolic blood pressure 130 mm[Hg] Elisha Athy PA-C Work Phone: [facility] 11-03-2021 06:30-0400 Heart rate 95 /min Olivia Ulloa DO Work Phone: [facility] 11-02-2021 22:10-0400 SaO2% (BldA) [Mass fraction] 98 % Olivia Ulloa DO Work Phone: [facility] 11-02-2021 20:54-0400 Body temperature 98.4 [degF] Olivia Ulloa DO Work Phone: [facility] 11-02-2021 20:32-0400 Diastolic blood pressure 61 mm[Hg] Olivia Ulloa DO Work Phone: [facility] 11-02-2021 20:32-0400 Systolic blood pressure 101 mm[Hg] Olivia Polancoe DO Work Phone: [facility] 11-02-2021 18:46-0400 Body height 149.9 cm Olivia Polancoe DO Work Phone: [facility] 11-02-2021 18:46-0400 Body mass index (BMI) [Ratio] 34.13 kg/m2 Olivia Polancoe DO Work Phone: [facility] 11-02-2021 18:46-0403 Body weight 76.66 kg Olivia Ulloa Work Phone: [facility] 11-02-2021 [id number] Respiratory rate 20 /min Olivia Ulloa Work Phone: [facility] Encounters Encounter Date Encounter Type Care Provider Facility Start: 03-18-2025 End: 03-19-2025 Emergency department patient visit [facility] Facility:[facility] Start: 03-05-2025 End: 03-05-2025 Emergency department patient visit [facility] Facility:[facility] Start: 07-27-2024 End: 07-27-2024 Emergency department patient visit [facility] Facility:[facility] Start: 06-24-2024 End: 06-24-2024 Emergency department patient visit Luís Mason Facility:[facility] Start: 03-26-2024 End: 03-27-2024 Telephone encounter Lise Concepcion MD Work Phone: OB/Gynecology Comment on above: Missed Menses Start: 11-25-2023 End: 11-25-2023 ambulatory WOLFGANG NGUYEN Facility:[facility] Start: 11-25-2023 End: 11-25-2023 Patient encounter procedure Wolfgang Nguyen MD Work Phone: OB/Gynecology Comment on above: Screen for STD (sexu ally transmitted disease) (Primary Dx); Exposure to sexually transmitted disease (STD) Start: 07-29-2023 End: 07-29-2023 ambulatory LISE CONCEPCION Facility:[facility] Start: 07-29-2023 End: 07-29-2023 Patient encounter procedure Lise Concepcion MD Work Phone: OB/Gynecology Comment on above: depressio n (Primary Dx); Menorrhagia with regular cycle; care and examination; Encounter for initial prescription of contraceptive pills Start: 06-12-2023 End: 06-12-2023 ambulatory CONSTANCE MONCADA Facility:[facility] Start: 06-10-2023 End: 06-10-2023 ambulatory LISE CONCEPCION Facility:[facility] Start: 06-03-2023 End: 06-03-2023 ambulatory LISE CONCEPCION Facility:[facility] Start: 06-03-2023 End: 06-03-2023 Patient encounter procedure Alan Vargas MD Work Phone: [facility] Comment on above: Intertrigo (Primary Dx) Start: 05-26-2023 ambulatory Lise Concepcion Elías D Work Phone: OB/Gynecology Comment on above: Start: 05-09-2023 End: 05-09-2023 ambulatory LISEKimo EGANBRICE Facility:[facility] Start: 05-09-2023 End: 05-09-2023 Patient encounter procedure Lise Concepcion MD Work Phone: OB/Gynecology Comment on above: Constipation, unspec ified constipation type (Primary Dx); state; Lightheadedness; Dizziness; Vaginal bleeding Start: 05-07-2023 Telephone encounter Constance jaquez APRN.CNM Work Phone: OB/Gynecology Comment on above: Bleeding Start: 05-06-2023 End: 05-06-2023 ambulatory LISEKimo CONCEPCION Facility:[facility] Start: 05-01-2023 Telephone encounter Sherin miller APRN.CNM Work Phone: OB/Gynecology Start: 04-22-2023 End: 04-22-2023 ambulatory [facility] Start: 04-22-2023 End: 04-22-2023 Patient encounter procedure [...] Start: 04-19-2023 End: 04-19-2023 ambulatory CAROLE QUINTERO Facility:[facility] Start: 04-12-2023 End: 04-12-2023 ambulatory SHERIN DECKER Facility:[facility] Start: 04-12-2023 End: 04-12-2023 Patient encounter procedure Administrative Processor [facility] Work Phone: OB/Gynecology Comment on above: Encounter for ultras ound to check growth (Primary Dx); Supervision of other high risk pregnancies, third trimester; Hypochondroplasia syndrome; 37 weeks gestation of with histo ry of section, antepartum (Primary Dx); 37 weeks gestation of Start: 04-05-2023 End: 04-05-2023 ambulatory LISE CONCEPCION Facility:[facility] Start: 03-14-2023 End: 03-14-2023 Patient encounter [...] Pump Start: 03-07-2023 Telephone encounter Sherin miller TEN PIN BOWLING CENTRE MANAGER.CNM Work Phone: OB/Gynecology Comment on above: Orders Care Start: 03-05-2023 End: 03-05-2023 ambulatory Keyon Glover MD Work Phone: Pediatric Cardiology Start: 03-05-2023 End: 03-05-2023 Patient encounter procedure Keyon Glover MD Work Phone: [facility] Start: 02-26-2023 Telephone encounter Mitra Jacobson RN [facility] Maternal Medicine Comment on above: Appointment Start: 02-05-2023 End: 02-05-2023 Patient encounter procedure Carole Quintero MD Work Phone: OB/Gynecology Comment on above: PREV DELIVE RY [654.23] (Primary Dx); 27 weeks gestation of Start: 01-28-2023 End: 01-28-2023 ambulatory Rupinder Juarez MD Work Phone: Pediatric Cardiology Start: 01-28-2023 End: 01-28-2023 Patient encounter procedure Rupinder Juarez MD Work Phone: [facility] Start: 01-24-2023 End: 01-24-2023 Patient encounter procedure [...] translucency Start: 09-13-2022 Telephone encounter Sherin miller APRN.JASON Work Phone: Obstetrics/Gynecology Comment on above: Forms [...] evaluation of patient and report Nurse Pnob [facility] Work Phone: OB/Gynecology Comment on above: [...] Early OB spotting Start: 08-23-2022 Telephone encounter Last Dipper RN Maternal Medicine Comment on above: Last Dipper - O ther (OB Angel Luis pool) Start: 07-20-2022 End: 07-20-2022 Patient encounter procedure Elisha Arteaga PA-C Work Phone: [facility] Comment on above: Viral URI [...] 04-12-2023 URINE OB DIP B/O Sherin Decker TEN PIN BOWLING CENTRE MANAGER .CNM Work Phone: Start: 04-12-2023 Us preg [...] after 1st trimest 06/24 gestation Constance Suarez TEN PIN BOWLING CENTRE MANAGER.CNM Work Phone: Start: 12-11-2022 Us preg uterus after 1st trimest 06/24 gestation Sherin Decker TEN PIN BOWLING CENTRE MANAGER.CNM Work Phone: Start: 10-16-2022 URINE OB DIP B/O Carole Quintero MD Work Phone: Start: 10-16-2022 Us nuchal translucency 1st gestation Sherin Decker TEN PIN BOWLING CENTRE MANAGER.CNM Work Phone: Start: 11-02-2021 Antibody screen Olivia [...] Detail Author Start: 02-05-2033 Urine microalbumin profile [facility] Start: 03-21-2025 PAP TESTING PAP TESTING [facility] Start: 03-21-2025 Screening for malign ant neoplasm of cervix [facility] Start: 02-23-2024 Covid-19 Vaccine ( season) Covid-19 Vaccine () [facility] Start: 02-23-2024 Influenza vaccination Influenza Vacc ine (#1) [facility] Start: 11-25-2023 End: 02-24-2024 Hepatitis B virus surface Ag [Presence] in Serum [facility] Comment on above: Expected: 11/25/2023 , Expires: 02/24/2024 Start: 11-25-2023 End: 02-24-2024 Hepatitis C virus Ab [Presence] in Serum [facility] Comment on above: Expected: 11/25/2023 , Expires: 02/24/2024 Start: 11-25-2023 End: 02-24-2024 HIV 1+2 Ab [Presence] in Serum or Plasma by Immunoassay [facility] Comment on above: Expected: 11/25/2023 , Expires: 02/24/2024 Start: 11-25-2023 End: 02-24-2024 SYPHILIS TOTAL W/REFLEX [facility] Work Phone: Comment on above: Expected: 11/25/2023 , Expires: 02/24/2024 Start: 09-13-2023 CHLAMYDIA SCREENING () CHLAMYDIA SCREENING () [facility] Start: 09-13-2023 GC (GONORRHEA) SCREENING () GC (GONORRHEA) SCREENING () [facility] Start: 09-13-2023 Screening for Chlamy becka trachomatis Chlamydia Screening () [facility] Start: 06-24-2023 Behavioral Health Screening Behavioral Health Screening [facility] Start: 06-24-2023 Depression Assessment Depression Ass essment [facility] Start: 03-07-2023 End: 05-07-2023 GEST GLUC TL, 3-HR, 100 GM, FASTING GEST GLUC TL, 3-HR, 100 GM, FASTING Lab Routine Abnormal glucose Expected: 03/07/2023, Expires: 05/07/2023 [facility] Work Phone: Comment on above: Expected: 03/07/2023 , Expires: 05/07/2023 Start: 02-22-2023 Covid-19 Vaccine () Covid-19 Vaccine () [facility] Start: 02-22-2023 Influenza vaccination C [facility] Start: 02-05-2023 End: 04-07-2023 CBC W Auto Differential panel - Blood CBC + DIFF Lab Routine 27 weeks gestation of Expected: 02/05/2023, Expires: 04/07/2023 [facility] Work Phone: Comment on above: Expected: 02/05/2023 , Expires: 04/07/2023 Start: 02-05-2023 End: 04-07-2023 GEST GLUC SCREEN, 1-HR, 50 GM, NON-FASTING GEST GLUC SCREEN, 1-HR, 50 GM, NON-FASTING Lab Routine 27 weeks gestation of Expected: 02/05/2023, Expires: 04/07/2023 [facility] Work Phone: Comment on above: Expected: 02/05/2023 , Expires: 04/07/2023 Start: 02-05-2023 End: 04-07-2023 SYPHILIS TOTAL W/REFLEX SYPHILIS TOTAL W/REFLEX Lab Routine 27 weeks gestation of Expected: 02/05/2023, Expires: 04/07/2023 [facility] Work Phone: Comment on above: Expected: 02/05/2023 , Expires: 04/07/2023 Start: 02-05-2023 End: 04-07-2023 TYPE + SCREEN TYPE + SCREEN Blood Bank Routine 27 weeks gestation of Expected: 02/05/2023, Expires: 04/07/2023 [facility] Work Phone: Comment on above: Expected: 02/05/2023 , Expires: 04/07/2023 Start: 01-15-2023 End: 10-17-2023 ECHO ECHO Cardiology Routine Encounter for supervision of normal in multigravida 6 weeks gestation of 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 Encounter for (NT) nuchal translucency scan Encounter for screening for nuchal translucency Expected: 01/15/2023, Expires: 10/17/2023 [facility] Work Phone: Comment on above: Expected: 01/15/2023 , Expires: 10/17/2023 Start: 01-08-2023 End: 03-10-2023 CBC W Auto Differential panel - Blood CBC + DIFF Lab Routine 23 weeks gestation of Rh negative state in antepartum period Expected: 01/08/2023, Expires: 03/10/2023 [facility] Work Phone: Comment on above: Expected: 01/08/2023 , Expires: 03/10/2023 Start: 01-08-2023 End: 03-10-2023 GEST GLUC SCREEN, 1-HR, 50 GM, NON-FASTING GEST GLUC SCREEN, 1-HR, 50 GM, NON-FASTING Lab Routine 23 weeks gestation of Rh negative state in antepartum period Expected: 01/08/2023, Expires: 03/10/2023 [facility] Work Phone: Comment on above: Expected: 01/08/2023 , Expires: 03/10/2023 Start: 01-08-2023 End: 03-10-2023 SYPHILIS TOTAL W/REFLEX SYPHILIS TOTAL W/REFLEX Lab Routine 23 weeks gestation of Rh negative state in antepartum period Expected: 01/08/2023, Expires: 03/10/2023 [facility] Work Phone: Comment on above: Expected: 01/08/2023 , Expires: 03/10/2023 Start: 01-08-2023 End: 03-10-2023 TYPE + SCREEN TYPE + SCREEN Blood Bank Routine Rh negative state in antepartum period Expected: 01/08/2023, Expires: 03/10/2023 [facility] Work Phone: Comment on above: Expected: 01/08/2023 , Expires: 03/10/2023 Start: 10-16-2022 End: 12-16-2022 Chromosome 21 trisomy [Presence] in Blood or Tissue by Cytogenetics [facility] Work Phone: Comment on above: Expected: 10/16/2022 , Expires: 12/16/2022 Start: 09-12-2022 End: 11-12-2022 CBC panel - Blood by Automated count CBC Lab Routine Encounter for supervision of normal in multigravida 6 weeks gestation of Expected: 09/12/2022, Expires: 11/12/2022 [facility] Work Phone: Comment on above: Expected: 09/12/2022 , Expires: 11/12/2022 Start: 09-12-2022 End: 11-12-2022 HEMOGLOBIN EVALUATION CASCADE HEMOGLOBIN EVALUATION CASCADE Lab Routine Encounter for supervision of normal in multigravida 6 weeks gestation of Expected: 09/12/2022, Expires: 11/12/2022 [facility] Work Phone: Comment on above: Expected: 09/12/2022 , Expires: 11/12/2022 Start: 09-12-2022 End: 11-12-2022 Hepatitis B virus surface Ag [Presence] in Serum HEP B SURF AG SCRN Lab Routine Encounter for supervision of normal in multigravida 6 weeks gestation of Expected: 09/12/2022, Expires: 11/12/2022 [facility] Work Phone: Comment on above: Expected: 09/12/2022 , Expires: 11/12/2022 Start: 09-12-2022 End: 11-12-2022 Hepatitis C virus Ab [Presence] in Serum HEP C AB IA W/CONF SCRN Lab Routine Encounter for supervision of normal in multigravida 6 weeks gestation of Expected: 09/12/2022, Expires: 11/12/2022 [facility] Work Phone: Comment on above: Expected: 09/12/2022 , Expires: 11/12/2022 Start: 09-12-2022 End: 11-12-2022 HIV 1+2 Ab [Presence] in Serum or Plasma by Immunoassay HIV 1 2 COMBO(AG/AB),WITH REFLEX TO DIFFERENTIATION Lab Routine Encounter for supervision of normal in multigravida 6 weeks gestation of Expected: 09/12/2022, Expires: 11/12/2022 [facility] Work Phone: Comment on above: Expected: 09/12/2022 , Expires: 11/12/2022 Start: 09-12-2022 End: 09-13-2023 NUCHAL TRANSLUCENCY WHI NUCHAL TRANSLUCENCY WHI Anc Imaging Routine Encounter for supervision of normal in multigravida 6 weeks gestation of Expected: 09/12/2022, Expires: 09/13/2023 [facility] Work Phone: Comment on above: Expected: 09/12/2022 , Expires: 09/13/2023 Start: 09-12-2022 End: 09-13-2023 OBSTETRIC ULTRASOUND WHI OBSTETRIC ULTRASOUND WHI Anc Imaging Routine Encounter for supervision of normal in multigravida 6 weeks gestation of Expected: 09/12/2022, Expires: 09/13/2023 [facility] Work Phone: Comment on above: Expected: 09/12/2022 , Expires: 09/13/2023 Start: 09-12-2022 End: 11-12-2022 RUBELLA IGG AB RUBELLA IGG AB Lab Routine Encounter for supervision of normal in multigravida 6 weeks gestation of Expected: 09/12/2022, Expires: 11/12/2022 [facility] Work Phone: Comment on above: Expected: 09/12/2022 , Expires: 11/12/2022 Start: 09-12-2022 End: 11-12-2022 SYPHILIS TOTAL W/REFLEX SYPHILIS TOTAL W/REFLEX Lab Routine Encounter for supervision of normal in multigravida 6 weeks gestation of Expected: 09/12/2022, Expires: 11/12/2022 [facility] Work Phone: Comment on above: Expected: 09/12/2022 , Expires: 11/12/2022 Start: 09-12-2022 End: 11-12-2022 TYPE + SCREEN TYPE + SCREEN Blood Bank Routine Encounter for supervision of normal in multigravida 6 weeks gestation of Expected: 09/12/2022, Expires: 11/12/2022 [facility] Work Phone: Comment on above: Expected: 09/12/2022 , Expires: 11/12/2022 Start: 07-20-2022 End: 08-03-2022 Influenza virus A and B RNA and SARS-CoV-2 (COVID-19) N gene panel - Respiratory specimen by JAVIER with probe detection COVID WITH FLUA+B, ROUTINE Microbiology Routine Viral URI with cough Expected: 07/20/2022, Expires: 08/03/2022 [facility] Work Phone: Comment on above: Expected: 07/20/2022 , Expires: 08/03/2022 Start: 06-24-2022 DEPRESSION ASSESSMENT DEPRESSION ASS ESSMENT [facility] Start: 03-07-2022 DTaP/Tdap/Td vaccine (7 - Td or Tdap) DTaP/Tdap/Td vaccine (7 - Td or Tdap) [facility] Start: 03-07-2022 Urine microalbumin profile DTAP,TDAP,TD (7 - Td or Tdap) [facility] Start: 02-22-2022 Influenza vaccination S [facility] Start: 01-17-2020 CHLAMYDIA SCREENING (18-24) CHLAMYDIA SCREENING (18-24) [facility] Start: 01-17-2020 GC (GONORRHEA) SCREENING (18-24) GC (GONORRHEA) SCREENING (18-24) [facility] Start: 12-21-2018 Urine microalbumin profile DTAP,TDAP,TD (1 - Tdap) [facility] Start: 12-21-2017 ANNUAL PCP TEAM CONFIGURATION ENGINEER DEVON DISEASE VISIT ANNUAL PCP TEAM CHRONIC DISEASE VISIT [facility] Start: 12-21-2017 Anxiety Screening Anxiety Screening [facility] Start: 12-21-2017 Depression Screening Depression Scre ening [facility] Start: 12-21-2017 HEPATITIS C SCREENING HEPATITIS C SC REENING [facility] Start: 12-21-2017 HIV SCREENING HIV SCREENING [facility] Start: 12-21-2017 SPIROMETRY SPIROMETRY [facility] Start: 2015 Meningococcal B Vaccine: Consider Based On Risk (1 of 2 - Patient Seeks Protection) Meningococcal B Vaccine: Consider Based On Risk (1 of 2 - Patient Seeks Protection) [facility] Start: 2015 MENINGOCOCCAL B: Consider based on risk (1 of 2 - Patient Seeks Protection) MENINGOCOCCAL B: Consider based on risk (1 of 2 - Patient Seeks Protection) [facility] Start: 12-21-2013 PEDS TO ADULT TRANSITION ANNUAL ASSESSMENT PEDS TO ADULT TRANSITION ANNUAL ASSESSMENT [facility] Start: 2011 PEDS TO ADULT TRANSITION INITIAL DISCUSSION PEDS TO ADULT TRANSITION INITIAL DISCUSSION [facility] Start: 12-21-2010 HPV VACCINE (1 - 2-d ose series) HPV VACCINE (1 - 2-dose series) [facility] Start: 12-21-2009 MENINGOCOCCAL B: Consider based on risk (1 of 2 - Risk Bexsero 2-dose series) MENINGOCOCCAL B: Consider based on risk (1 of 2 - Risk Bexsero 2-dose series) [facility] Start: 12-21-2005 PNEUMOCOCCAL (1 - PCV) PNEUMOCOCCAL (1 - PCV) [facility] Start: 12-21-2005 Pneumococcal vaccination Pneumococcal Vaccine (1 - PCV) [facility] Start: 12-21-2004 COVID-19 Vaccine (1) COVID-19 Vaccin e (1) [facility] Start: 06-22-2000 COVID-19 VACCINE (#1) COVID-19 VACCI NE (#1) [facility] Start: 1999 HEPATITIS B (1 of 3 - 3-dose series) HEPATITIS B (1 of 3 - 3-dose series) [facility] Bacteria identified in Urine by Culture URINE CULTURE Microbiology Routine Encounter for supervision of normal in multigravida 6 weeks gestation of 09/12/2022 9:52 AM T [facility] Work Phone: Bacteria identified in Wound by Culture ABSCESS AND WOUND CULTURE WITH GRAM STAIN Microbiology Routine Intertrigo 06/03/2023 5:34 PM EST [facility] Work Phone: Chlamydia trachomatis+Neisseria gonorrhoeae DNA [Presence] in Unspecified specimen by JAVIER with probe detection GC/CHLAMYDIA DNA DET Lab Routine Encounter for supervision of normal in multigravida 6 weeks gestation of 09/12/2022 9:52 AM T [facility] Work Phone: End: 03-05-2024 ECHO ECHO Cardiology Routine Maternal care for (suspected) abnormality and damage, unspecified, fetus 1 1 Occurrences starting 03/05/2023 until 03/05/2024 [facility] Work Phone: Comment on above: 1 Occurrences starti ng 03/05/2023 until 03/05/2024 End: 11-02-2021 Group B Strep, PCR [facility] Work Phone: Comment on above: One Time for 1 Occur rences starting 11/02/2021 until 11/02/2021 Nonrebreather mask oxygen Nonrebreather mask oxygen Respiratory Care Routine As directed - RT (PRN) until discontinued starting 11/02/2021 [facility] Work Phone: Comment on above: As directed - RT (GA N) until discontinued starting 11/02/2021 TYPE AND SCREEN TYPE AND SCREEN Blood Bank Routine Every Third Day until discontinued starting 11/02/2021, 1 completed [facility] Work Phone: Comment on above: Every Third Day unti l discontinued starting 11/02/2021, 1 completed URINE OB DIP B/O URINE OB DIP B/ O Lab Routine 19 weeks gestation of Ordered: 12/11/2022 [facility] Work Phone: Comment on above: Ordered: 12/11/2022 [...] 11/03/2021 10:01 AM EDT [facility] Work Phone: [facility] Immunizations Immunization Date Immunization Notes Care Provider Fa mela 03-14-2023 influenza, injectabl e, quadrivalent, contains preservative Carole Quintero MD Work Phone: [facility] 03-14-2023 influenza virus vacc ine, unspecified formulation Lise Concepcion MD Work Phone: [facility] 02-28-2023 RHO(D) immune globul in- IV or IM Keyon Glover MD Work Phone: [facility] 02-05-2023 tetanus toxoid, redu matthew diphtheria toxoid, and acellular pertussis vaccine, adsorbed Carole Quintero MD Work Phone: [facility] Work Phone: 05-07-2018 influenza, injectabl e, quadrivalent, preservative free Carole Quintero MD Work Phone: [facility] Work Phone: 05-07-2018 influenza virus vacc ine, unspecified formulation Keyon Glover MD Work Phone: [facility] 02-09-2017 Human Papillomavirus 9-valent vaccine Carole Quintero MD Work Phone: [facility] Work Phone: 02-09-2017 meningococcal polysaccharide (groups A, C, Y and W-135) diphtheria toxoid conjugate vaccine (MCV4P) Carole Quintero MD Work Phone: [facility] Work Phone: 01-27-2014 human papilloma viru s vaccine, quadrivalent Carole Quintero MD Work Phone: [facility] Work Phone: 03-07-2012 human papilloma viru s vaccine, quadrivalent Carole Quintero MD Work Phone: [facility] Work Phone: 03-07-2012 influenza, seasonal, injectable Carole Quintero MD Work Phone: [facility] Work Phone: 03-07-2012 tetanus toxoid, redu matthew diphtheria toxoid, and acellular pertussis vaccine, adsorbed Carole Quintero MD Work Phone: [facility] Work Phone: 03-01-2011 influenza virus vacc ine, whole virus Carole Quintero MD Work Phone: [facility] Work Phone: 03-01-2011 meningococcal polysaccharide (groups A, C, Y and W-135) diphtheria toxoid conjugate vaccine (MCV4P) Carole Quintero MD Work Phone: [facility] Work Phone: 06-08-2009 influenza virus vacc ine, whole virus Carole Quintero MD Work Phone: [facility] Work Phone: 06-08-2009 novel influenza-H1N1 -09, preservative-free, injectable Carole Quintero MD Work Phone: [facility] Work Phone: 01-26-2009 hepatitis A vaccine, pediatric/adolescent dosage, 2 dose schedule Carole Quintero MD Work Phone: [facility] Work Phone: 04-09-2008 influenza virus vacc ine, whole virus Carole Quintero MD Work Phone: [facility] Work Phone: 01-06-2008 hepatitis A vaccine, pediatric/adolescent dosage, 2 dose schedule Carole Quintero MD Work Phone: [facility] Work Phone: 01-06-2008 varicella virus vaccine Nara Quintero MD Work Phone: [facility] Work Phone: 04-25-2006 influenza virus vacc ine, whole virus Carole Quintero MD Work Phone: [facility] Work Phone: 03-19-2005 diphtheria, tetanus toxoids and acellular pertussis vaccine, unspecified formulation Carole Quintero MD Work Phone: [facility] Work Phone: 03-19-2005 measles, mumps and rubella virus vaccine Carole Quintero MD Work Phone: [facility] Work Phone: 03-19-2005 poliovirus vaccine, inactivated Carole Quintero MD Work Phone: [facility] Work Phone: 2001 pneumococcal conjuga te vaccine, 7 valent Carole Quintero MD Work Phone: [facility] Work Phone: 06-25-2001 haemophilus influenz ae type b vaccine, PRP-T conjugate Carole Quintero MD Work Phone: [facility] Work Phone: 03-20-2001 diphtheria, tetanus toxoids and acellular pertussis vaccine, unspecified formulation Carole Quintero MD Work Phone: [facility] Work Phone: 03-20-2001 poliovirus vaccine, inactivated Carole Quintero MD Work Phone: [facility] Work Phone: 12-27-2000 haemophilus influenz ae type b conjugate and Hepatitis B vaccine Carole Quintero MD Work Phone: [facility] Work Phone: 12-27-2000 measles, mumps and rubella virus vaccine Carole Quintero MD Work Phone: [facility] Work Phone: 12-27-2000 varicella virus vaccine Nara Quintero MD Work Phone: [facility] Work Phone: 07-08-2000 diphtheria, tetanus toxoids and acellular pertussis vaccine, unspecified formulation Carole Quintero MD Work Phone: [facility] Work Phone: 07-08-2000 pneumococcal conjuga te vaccine, 7 valent Carole Quintero MD Work Phone: [facility] Work Phone: 04-25-2000 diphtheria, tetanus toxoids and acellular pertussis vaccine, unspecified formulation Carole Quintero MD Work Phone: [facility] Work Phone: 04-25-2000 haemophilus influenz ae type b conjugate and Hepatitis B vaccine Carole Quintero MD Work Phone: [facility] Work Phone: 04-25-2000 pneumococcal conjuga te vaccine, 7 valent Carole Quintero MD Work Phone: [facility] Work Phone: 04-25-2000 poliovirus vaccine, inactivated Carole Quintero MD Work Phone: [facility] Work Phone: 03-05-2000 diphtheria, tetanus toxoids and acellular pertussis vaccine, unspecified formulation Carole Quintero MD Work Phone: [facility] Work Phone: 03-05-2000 haemophilus influenz ae type b conjugate and Hepatitis B vaccine Carole Quintero MD Work Phone: [facility] Work Phone: 03-05-2000 pneumococcal conjuga te vaccine, 7 valent Carole Quintero MD Work Phone: [facility] Work Phone: 03-05-2000 poliovirus vaccine, inactivated Carole Quintero MD Work Phone: [facility] Work Phone: Payers Date Payer Category Payer Unknown [id number] 2024 Self-pay 2022 Medicaid [id number] 2022 Medicaid [id number] 2018 Unknown 1999 Unknown [id number] Unknown [id number] Unknown [id number] Unknown [id number] Unknown [id number] [id number] Social History Date Type Detail Facility Start: 11-02-2021 End: 03-21-2022 Tobacco smoking status NHIS Never smoked tobacco [employer] Work Phone: Start: 11-02-2021 End: 03-21-2022 Tobacco use and exposure Smokeless tobacco non-user [employer] Work Phone: Start: 11-02-2021 End: 11-25-2023 Alcohol intake Ex-drinker (finding) [facility] Work Phone: Start: 04-14-2021 [facility] [employer] Work Phone: Start: 2000 Sex Assigned At Not on file S [employer] Work Phone: Start: 10-23-2021 End: 11-02-2021 Exposure to SARS-CoV-2 (event) Not sure [employer] Work Phone: Start: 07-20-2022 Alcohol intake Current drinke r of alcohol (finding) [facility] Start: 03-20-2021 Alcohol Comment rare, once a month [facility] Start: 09-06-2022 Education 13 [facility] Start: 11-30-2022 End: 03-29-2023 History of Social function [facility] Start: 11-30-2022 End: 03-29-2023 Tobacco use panel [facility] National Score (1-10 0), lower number is lower risk 67 [facility] The thought of manfred hyde myself has occurred to me Never [facility] Medical Equipment Procedure Code Equipment Code [...] to the office. Notified. Diana Anderson RN [facility] 03-27-2024 Miscellaneous Notes Patient called in [...] Mily Forrester RN documented in this encounter [facility] 03-26-2024 Telephone encounter Note Agree with repeat preg test next week if period does not start. To track menstrual cycles and call if menstrual cycles are not every 24-38 days [facility] 03-26-2024 Telephone encounter Note Patient calling [...] that point. Please advise. Mily Forrester RN [facility] 11-25-2023 Note HNO ID: [id number] Author: WOLFGANG NGUYEN MD Service: ? 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 HPI: Potential STI exposure from allege to have had unprotected sex with a bisexual individual rumored to have HIV. OB History T2 L2 SAB4 IAB0 Ectopic0 Multiple0 Live Births2 Fitness Worker History LMP: 07/09/2023 (Exact Date), Unknown Age at Menarche: Age at First : Age at Menopause: Fitness Worker History Comments: Sexual Activity: Yes; Male Contraception: [...] external genitalia normal, normal Bartholin's glands, urethra, Baconton's glands, no vulvar lesions, no cervical lesions, good vaginal support, physiologic discharge present, normal appearing perineal body and perianal region BIMANUAL: uterus normal size, shape and consistency, no adnexal masses, and non-tender ASSESSMENT AND PLAN: Potential STD exposure, screening requested / ordered FTFT with patient and prep > 30 min Wolfgang Nguyen MD [facility] 11-25-2023 History of Presen t illness Narrative Fly Finisher offered: Patient accepts, visit chaperoned by maJuliana LeungSaudgalen Simpson is a 22 year old female who presents for problem visit for potential STI exposure.. HPI: Potential STI exposure from allege to have had unprotected sex with a bisexual individual rumored to have HIV. OB History T2 L2 SAB4 IAB0 Ectopic0 Multiple0 Live Births2 Fitness Worker History LMP: 07/09/2023 (Exact Date), Unknown Age at Menarche: Age at First : Age at Menopause: Fitness Worker History Comments: Sexual Activity: Yes; Male Contraception: [...] external genitalia normal, normal Bartholin's glands, urethra, Baconton's glands, no vulvar lesions, no cervical lesions, good vaginal support, physiologic discharge present, normal appearing perineal body and perianal region BIMANUAL: uterus normal size, shape and consistency, no adnexal masses, and non-tender ASSESSMENT AND PLAN: Potential STD exposure, screening requested / ordered FTFT with patient and prep > 30 min Wolfgang Nguyen MD documented in this encounter [facility] 07-29-2023 Note HNO ID: [id number] Author: LISE CONCEPCION MD Service: ? Author [...] L2 SAB4 IAB0 Ectopic0 Multiple0 Live Births2 Fitness Worker History LMP: 07/09/2023 (Exact Date), Unknown Age at Menarche: Age at First : Age at Menopause: Fitness Worker History Comments: Sexual Activity: Yes; Male Contraception: [...] with regular cycle N92.0 Norethin Diogenes-Eth Estrad-FE (07/13, ,) 1 mg-20 mcg (21)/75 mg (7) per tablet 3. care and examination Z39.2 CONSULT TO [facility] FLUoxetine (PROZAC) 10 mg capsule 4. Encounter for initial prescription of contraceptive pills Z30.011 Norethin Diogenes-Eth Estrad-FE (07/13, ,) 1 mg-20 mcg (21)/75 mg (7) per tablet [facility] Start Prozac after discussion of r/b/a. Start ocp for menorrhagia after discussion of r/b/a. Schedule follow up. 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 Start Prozac after discussion of r/b/a. Start ocp for menorrhagia after discussion of r/b/a. Schedule follow up. Lsie Concepcion DO Medical Decision Making: Problems: Low: 2+ self-limited or minor problems Risk: Moderate: Drug management Medical Decision Making Level: 3 - Low documented in this encounter [facility] 06-12-2023 Note HNO ID: [id number] Author: Constance Moncada APRN.CNP Service: ? Author Type: Nurse Practitioner Type: Progress Notes Filed: 06/12/2023 4:22 PM Note Text: Called to triage patient, Endorses experiencing chest pain She is one month post She warrants an EKG, Referred to ED Boyfriend at bedside to take patient. [facility] 06-10-2023 Note HNO ID: [id number] Author: Lise Concepcion MD Service: ? Author Type: Physician Type: Progress Notes Filed: 06/10/2023 5:11 PM Note Text: Fly Finisher offered: Patient declines. VISIT Saud Simpson is a 22 year old year old here for visit. Delivery Summary: c/s 04/26/2023 ROS/ Recovery: Feeding: Bottle feeding problems: None Menses since delivery: none Menstrual pattern prior to : Irregular periods [place] since delivery: Resumed and Painful Depression: denies, [...] harming myself has occurred to me. Never [place] Depression Scale Total 20 Feeling nervous, anxious [...] external genitalia normal, normal Bartholin's glands, urethra, Baconton's glands, no vulvar lesions, no cervical lesions, good vaginal suppor (more content not included)... [facility] 06-03-2023 Note HNO ID: [id number] Author: Alan Vargas MD Service: ? Author [...] CULTURE WITH GRAM STAIN Alan Vargas MD [facility] 12-11-2023 History of Presen t illness Narrative Patient [...] Alan Vargas MD documented in this encounter [facility] 06-03-2023 Miscellaneous Notes Patient called and states she is unable to come into office tomorrow for appointment. Patient states she will go to urgent care [facility] for evaluation. Bethany Adorno RN Needs appointment or to urgent care. Ok to work in if any openings for anyone. 1245 w RM tomorrow. Virtual ok if she prefers. Carole Quintero MD See photo update via [employer] today. Patient called in and reported redness and foul odor like yeast. Denies fevers or body aches. Please advise. Melisa Suarez RN Incision in pictures looks fine. Please find out why she thinks it is infected. C/S on 04/26. Last seen 05/09 for PP documented in this encounter [facility] 05-09-2023 Note HNO ID: [id number] Author: Lise Concepcion MD Service: ? Author Type: Physician Type: Progress Notes Filed: 05/17/2023 7:24 AM Note Text: Fly Finisher offered: Patient declines. 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 St (more content not included)... [facility] 05-09-2023 History of Presen t illness Narrative Fly Finisher offered: Patient declines. 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 Author [...] own bassinet/crib/bed in separate room, feels rested [place] since delivery: Not resumed Emotional support: Yes [...] patient deviate. Education: resources provided - see RADHA/RN note Follow up: Return to Clinic for 6 week visit and as needed Carole Quintero MD [facility] 05-01-2023 Miscellaneous Notes Patient notified. MELISA [...] Melisa Suarez RN documented in this encounter [facility] 04-26-2023 Note HNO ID: [id number] Author: Mily Forrester RN Service: ? Author Type: ? Type: Progress Notes Filed: 04/26/2023 2:53 PM Note Text: Patient delivered via by Dr. Concepcion on 04/26/23 at [facility]. See OB history. Mily Forrester RN [facility] 04-22-2023 History and physical note DATE [...] 4 - Moderate documented in this encounter [facility] 04-22-2023 Miscellaneous Notes SW- Feeling irregular ctx's q 6-11 min. No vb, lof. Good FM Pre op visit today documented in this encounter [facility] 04-22-2023 Instructions Torri Weiss MA - 04/22/2023 10:40 AM EDT SEQUENTIAL SCREENINGS The [facility] offers sequential screenings for women who [...] It will require an appointment with our technician automatic. This is not an ultrasound performed by [...] the above symptoms, contact our office at [phone] and ask to speak with a nurse. After hours, you can call doctors registry at [phone] OR call [facility] at [phone] and ask to have the doctor wash crew person paged. If you consider this an emergency, dial 9--1 or go to your nearest emergency department. NEED HELP? Are you dealing with a violent or abusive relationship? Are you a victim of rape or sexual assult? Call [facility] ([place]) 24 hour Crisis Hotline: 214.116.7113 or 334-593-0308. MANUAL Your Guide to a Healthy manual is now on-line. Visit [email or web address] to download your free copy documented in this encounter [facility] 04-22-2023 Note HNO ID: [id number] Author: Scott Wlaton Service: ? Author Type: ? Type: Progress Notes Filed: 04/22/2023 9:36 AM Note Text: POPULATION HEALTH NAVIGATION OUTREACH Action/FYI Spoke to patient added equipment scheduler to OB provider field Patient Identified by Name and : YES, via phone Outreach Outcome/Action Spoke to patient / parent / legal guardian: No action required (information or reminder only) OB/PEDS field updated Did you use a PCP flex slot to schedule this appointment? N/A Reason for Outreach Payer: Payor: [place] / Plan: [facility] MEDICAID / Product Type: Medicaid / Care [...] Scott Walton April 22, 2023 9:36 AM [facility] 04-22-2023 History of Presen t illness Narrative POPULATION HEALTH NAVIGATION OUTREACH Action/FYI Spoke to patient added equipment scheduler to OB provider field Patient Identified by Name and : YES, via phone Outreach Outcome/Action Spoke to patient / parent / legal guardian: No action required (information or reminder only) OB/PEDS field updated Did you use a PCP flex slot to schedule this appointment? N/A Reason for Outreach Payer: Payor: [place] / Plan: [facility] MEDICAID / Product Type: Medicaid / Care [...] 2023 9:36 AM documented in this encounter [facility] 04-22-2023 Note Patient Outreach (NE TNAV) SAUD SIMPSON (2000) 89 F Date Time Provider Department 04/22/23 SCOTT WALTON During your visit today, we recorded the following information about you: Scott Walton 04/22/2023 9:36 AM Signed POPULATION HEALTH NAVIGATION OUTREACH Action/FYI Spoke to patient added equipment scheduler to OB provider field Patient Identified by Name and : YES, via phone Outreach Outcome/Action Spoke to patient / parent / legal guardian: No action required (information or reminder only) OB/PEDS field updated Did you use a PCP flex slot to schedule this appointment? N/A Reason for Outreach Payer: Payor: [place] / Plan: [facility] MEDICAID / Product Type: Medicaid / Care [...] Depression Assessment Never done Navigation Signature: Scott Brownjohan April 22, 2023 9:36 AM Allergies As [...] Encounter Status:Closed by SCOTT WALTON on 04/22/23 [facility] 04-19-2023 Miscellaneous Notes RR- VB No. [...] Carole Quintero M.D. documented in this encounter [facility] 04-19-2023 Instructions Dai Beltran Ma - 04/19/2023 9:46 AM EDT SEQUENTIAL SCREENINGS The [facility] offers sequential screenings for women who [...] It will require an appointment with our technician automatic. This is not an ultrasound performed by [...] the above symptoms, contact our office at [phone] and ask to speak with a nurse. After hours, you can call doctors registry at [phone] OR call [facility] at [phone] and ask to have the doctor wash crew person paged. If you consider this an emergency, dial 9-6 or go to your nearest emergency department. NEED HELP? Are you dealing with a violent or abusive relationship? Are you a victim of rape or sexual assult? Call [facility] ([place]) 24 hour Crisis Hotline: 713.619.9883 or 397-273-4243. MANUAL Your Guide to a Healthy manual is now on-line. Visit [email or web address] ancyGuide to download your free copy documented in this encounter [facility] 04-12-2023 Miscellaneous Notes S: Saud Simpson [...] Sherin Decker APRN.CNM documented in this encounter [facility] 04-12-2023 Instructions Stella Acuna Ma - 04/12/2023 8:48 AM EDT SEQUENTIAL SCREENINGS The [facility] offers sequential screenings for women who [...] It will require an appointment with our technician automatic. This is not an ultrasound performed by [...] the above symptoms, contact our office at [phone] and ask to speak with a nurse. After hours, you can call doctors [facility] at [phone] OR call [facility] at [phone] and ask to have the doctor wash crew person paged. If you consider this an emergency, dial 9- or go to your nearest emergency department. NEED HELP? Are you dealing with a violent or abusive relationship? Are you a victim of rape or sexual assult? Call [facility] ([facility] 24 hour Crisis Hotline: 908.633.7330 or 761-399-4596. MANUAL Your Guide to a Healthy manual is now on-line. Visit [email or web address]/HealthyPregn ancyGuide to download your free copy documented in this encounter [facility] 03-14-2023 Miscellaneous Notes Faxed signed Breast pump order received from [employer]. To SW to sign. Mily Forrester RN documented in this encounter [facility] 03-14-2023 Miscellaneous Notes RR- VB No. [...] Carole Quintero M.D. documented in this encounter [facility] 03-14-2023 Dai Cortez Ma - 03/14/2023 1:25 PM EDT SEQUENTIAL SCREENINGS The [facility] offers sequential screenings for women who [...] It will require an appointment with our technician automatic. This is not an ultrasound performed by [...] the above symptoms, contact our office at [phone] and ask to speak with a nurse. After hours, you can call doctors registry at [phone] OR call [facility] at [phone] and ask to have the doctor wash crew person paged. If you consider this an emergency, dial 9-1-4 or go to your nearest emergency department. NEED HELP? Are you dealing with a violent or abusive relationship? Are you a victim of rape or sexual assult? Call [facility] ([place]) 24 hour Crisis Hotline: 495.508.6756 or 999-522-6765. MANUAL Your Guide to a Healthy manual is now on-line. Visit [email or web address] ancyGuide to download your free copy documented in this encounter [facility] 03-08-2023 Miscellaneous Notes Patient notified that [...] her options are. documented in this encounter [facility] 03-07-2023 Miscellaneous Notes Orders signed. Sherin Decker APRN.CNM Patient was at lab today to do 3 hr GTT and vomited. Will need new order filed so Pt can get it completed on another day. Order pended please review and file. Patient will need called to be scheduled when filed. Dai Beltran CMA documented in this encounter [facility] 03-05-2023 Note HNO ID: [id number] Author: Keyon Glover MD Service: ? Author Type: Physician Type: Progress Notes Filed: 03/05/2023 2:46 PM Note Text: Dr. Carole Quintero NAME: Saud Simpson [facility] Number.: [id number] Date of : 2000 Date of Visit: March 05, [address] Quintero: Ms. Saud Simpson was seen for echocardiogram and pediatric cardiology consultation on March 05, 2023. She is a 22 year old woman, referred due to family history of CHD - "hole in the heart" in maternal grandfather that required surgical intervention. [...] which included preparing to see the patient, ndml-bz-gbyy patient care, completing clinical documentation, performing a medically appropriate examination, independently interpreting results (not separately reported), and communicating results to the patient/family/caregiver. Sincerely, Dr. Keyon Glover [facility] 03-05-2023 History of Presen t illness Narrative Dr. Carole Quintero NAME: Saud Simpson CLINIC Number.: [id number] Date of : 2000 Date of Visit: March 05, [address] Quintero: Ms. Saud Simpson was seen for echocardiogram and pediatric cardiology consultation on March 05, 2023. She is a 22 year old woman, referred due to family history of CHD - "hole in the heart" in maternal grandfather that required surgical intervention. [...] which included preparing to see the patient, akxo-kp-ligk patient care, completing clinical documentation, performing a medically appropriate examination, independently interpreting results (not separately reported), and communicating results to the patient/family/caregiver. Sincerely, Dr. Keyon Glover documented in this encounter [facility] 02-26-2023 Miscellaneous Notes Saud called me to reschedule her echo. She stated that her ride is unable to bring her. This is the 3rd time she has rescheduled.I encouraged her to call her insurance to secure a ride for her appt next week. She stated " I do not use [employer] for rides, they are rude to me and told me that they would not give me a ride next time." I encouraged her to come to come to her appts. Support given documented in this encounter [facility] 02-05-2023 History of Presen t illness [...] severely ill: Yes Patient denies history of Guillain-[place] Syndrome (a severe paralytic illness): Yes Tdap Adacel injection was given without incident. See immunizations for details of immunizations administered today. VIS sheet provided: Yes Provider Dr. Quintero was present in office at time of injection. Virginia Barr LPN documented in this encounter [facility] 02-05-2023 Miscellaneous Notes RR- VB No. [...] Carole Quintero M.D. documented in this encounter [facility] 02-05-2023 Instructions Virginia Barr LPN - 02/05/2023 8:22 AM EDT SEQUENTIAL SCREENINGS The [facility] offers sequential screenings for women who [...] It will require an appointment with our technician automatic. This is not an ultrasound performed by [...] the above symptoms, contact our office at [phone] and ask to speak with a nurse. After hours, you can call doctors registry at [phone] OR call [facility] at [phone] and ask to have the doctor wash crew person paged. If you consider this an emergency, dial 91-8 or go to your nearest emergency department. NEED HELP? Are you dealing with a violent or abusive relationship? Are you a victim of rape or sexual assult? Call [facility] ([place]) 24 hour Crisis Hotline: 468.481.5236 or 990-391-4247. MANUAL Your Guide to a Healthy manual is now on-line. Visit [email or web address] ancyGuide to download your free copy documented in this encounter [facility] 01-28-2023 History of Presen t illness Narrative NAME: Saud Simpson [facility] Number.: [id number] Date of : 2000 Date of Visit: [...] gestation referred due to family history of "hole in the heart" in maternal grandfather that required surgical intervention. [...] which included preparing to see the patient, rzuh-jr-ewzz patient care, completing clinical documentation, obtaining and/or reviewing separately obtained history, counseling and educating the patient/family/caregiver, communicating with other HCPs (not separately reported), and communicating results to the patient/family/caregiver. Sincerely, Rupinder Juarez MD January 28, 2023 documented in this encounter [facility] 01-24-2023 Miscellaneous Notes SW- Add on [...] Lise Concepcion DO documented in this encounter [facility] 01-24-2023 Instructions Torri Weiss MA - 01/24/2023 2:13 PM EDT SEQUENTIAL SCREENINGS The [facility] offers sequential screenings for women who [...] It will require an appointment with our technician automatic. This is not an ultrasound performed by [...] the above symptoms, contact our office at [phone] and ask to speak with a nurse. After hours, you can call doctors registry at [phone] OR call [facility] at [phone] and ask to have the doctor wash crew person paged. If you consider this an emergency, dial 9-1-1 or go to your nearest emergency department. NEED HELP? Are you dealing with a violent or abusive relationship? Are you a victim of rape or sexual assult? Call [facility] ([place]) 24 hour Crisis Hotline: 362.957.3728 or 452-669-1870. MANUAL Your Guide to a Healthy manual is now on-line. Visit [email or web address]/HealthyPregn ancyGuide to download your free copy documented in this encounter [facility] 01-24-2023 Miscellaneous Notes Patient notified. Still has headache now. Appointment given for today. Mily Giauque RN Recommend BP check if SCHULTZ not [...] Diana Anderson RN documented in this encounter [facility] 01-08-2023 Miscellaneous Notes RM-Pt doing well. Denies vaginal Bleeding, Leaking fluid, or regular Contractions. Pt reports good movement. Some random cramping that started yesterday in the lower pelvis. Keeping up on water and has not taken any medication for the cramping. Physical Exam: Gen: no apparent distress Abd: soft, Gravid. Non tender to palpation. See flow sheet RTO 4 weeks Belinda Barertt APRN.STRUCTURAL WELDER documented in this encounter [facility] 01-08-2023 Instructions s Stella Skinner - 01/08/2023 8:59 AM EDT SEQUENTIAL SCREENINGS The [facility] offers sequential screenings for women who [...] It will require an appointment with our technician automatic. This is not an ultrasound performed by [...] the above symptoms, contact our office at [phone] and ask to speak with a nurse. After hours, you can call doctors registry at [phone] OR call [facility] at [phone] and ask to have the doctor wash crew person paged. If you consider this an emergency, dial 9-1-1 or go to your nearest emergency department. NEED HELP? Are you dealing with a violent or abusive relationship? Are you a victim of rape or sexual assult? Call [facility] ([place]) 24 hour Crisis Hotline: 938.803.3926 or 869-013-4580. MANUAL Your Guide to a Healthy manual is now on-line. Visit [email or web address]/HealthyPregn ancyGuide to download your free copy documented in this encounter [facility] 12-11-2022 Miscellaneous Notes DM-Pt doing well. Denies vaginal Bleeding, Leaking fluid, or regular Contractions. Pt reports good movement Physical Exam: Gen: female in no apparent distress Abd: soft, Gravid. Non tender to palpation. See flow sheet A/P: @ 19.4 weeks- wanted to schedule anatomy us - no preference on provider. 1) SW wash crew person at 39 weeks- will give OR booking sheet for 39 weeks 2) MFM today for anatomy us 3) RTO Scheduled in 4 weeks Rahel Venegas MD documented in this encounter [facility] 12-11-2022 Instructions Cathleen Mora Ma - 12/11/2022 10:12 AM EDT SEQUENTIAL SCREENINGS The [facility] offers sequential screenings for women who [...] It will require an appointment with our technician automatic. This is not an ultrasound performed by [...] the above symptoms, contact our office at [phone] and ask to speak with a nurse. After hours, you can call doctors registry at [phone] OR call [facility] at [phone] and ask to have the doctor wash crew person paged. If you consider this an emergency, dial 9-6-9 or go to your nearest emergency department. NEED HELP? Are you dealing with a violent or abusive relationship? Are you a victim of rape or sexual assult? Call [facility] ([place]) 24 hour Crisis Hotline: 714.510.7869 or 305-475-6408. MANUAL Your Guide to a Healthy manual is now on-line. Visit [email or web address]/HealthyPregn ancyGuide to download your free copy documented in this encounter [facility] 10-22-2022 Miscellaneous Notes Called Saud Simpson [...] Pauline Weems Ma documented in this encounter [facility] 10-18-2022 Miscellaneous Notes Patient notified. Diana [...] take during . It's a superfood supplement. [email or web address] documented in this encounter [facility] 10-16-2022 History of Presen t illness Narrative Maternal Medicine Consult Note Requested by: Jose COKER Reporting: Note/evaluation from today sent to requesting provider via shared medical record. History of Present Illness 21 year old at 11w4d presenting for [facility] consultation secondary to a history of suspected hypochondroplasia. 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 During her prior , she was evaluated by genetics at [facility] and notes were available for review in [...] testing, and recommend referral to genetics at [facility] for ongoing discussion/counseling and evaluation/testing if desired/indicated. [...] which included preparing to see the patient, lmoy-ij-fofy patient care, completing clinical documentation, obtaining and/or reviewing separately obtained history, performing a medically appropriate examination, counseling and educating the patient/family/caregiver, ordering medications, tests, or procedures, communicating results to the patient/family/caregiver, and care coordination (not separately reported). documented in this encounter [facility] 10-16-2022 Miscellaneous Notes Addended by: DAI [...] Carole Quintero M.D. documented in this encounter [facility] 10-16-2022 Instructions Dai Beltran Ma - 10/16/2022 10:29 AM EDT SEQUENTIAL SCREENINGS The [facility] offers sequential screenings for women who [...] It will require an appointment with our technician automatic. This is not an ultrasound performed by [...] the above symptoms, contact our office at [phone] and ask to speak with a nurse. After hours, you can call doctors registry at [phone] OR call [facility] at [phone] and ask to have the doctor wash crew person paged. If you consider this an emergency, dial 9-1-1 or go to your nearest emergency department. NEED HELP? Are you dealing with a violent or abusive relationship? Are you a victim of rape or sexual assult? Call [facility] ([facility] 24 hour Crisis Hotline: 205.375.5457 or 383-249-2074. MANUAL Your Guide to a Healthy manual is now on-line. Visit [email or web address]/HealthyPregn ancyGuide to download your free copy documented in this encounter [facility] 09-13-2022 Miscellaneous Notes Initial risk assessment form submitted 09/13/22 Marla Nguyen RN documented in this encounter [facility] 09-12-2022 Miscellaneous Notes Patient seen for NOB. at 6.5 weeks gestation. She is a transfer of care from [facility]. She has a history of section at 37 weeks for IUGR with elevated cord dopplers. She desires a repeat section. Patient diagnosed with hypochondroplasia syndrome and dwarfism. See progress notes. 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 Otzmxbijarubpyy-Dipzlgabo-ON (BROMFED DM) 2-30-10 mg/5 mL syrup Take [...] Sherin Decker APRN.CNM documented in this encounter [facility] 09-12-2022 Instructions Ernie Franks Cma - 09/12/2022 8:42 AM EDT Please select the following link to access the [facility] Your Guide to a Healthy . [email or web address] documented in this encounter [facility] 09-06-2022 Miscellaneous Notes DISTANCE HEALTH VISIT [...] her previous child December 15, [facility] at [facility] by Dr. Garcia. This was a for [...] history of hypochondroplasia. Saw genetic counselor at [facility] on September 05. Patient has a history [...] available.Lexa Felton RN documented in this encounter [facility] 09-06-2022 History of Presen t illness [...] None, Comments: None documented in this encounter [facility] 08-31-2022 Miscellaneous Notes Noted Brent Pathak MD Patient had spoken with [facility] on 08/23/2022 regarding brown spotting. Note was [...] prn problems. FYI. documented in this encounter [facility] 08-23-2022 Miscellaneous Notes Call placed to patient to triage for new OB appt. Name and identified. LMP? 07/19/2022 PNV? yes Cats? no Pelvic pain? no Vaginal bleeding? Light brown spotting Precautions for both discussed with patient understanding. Any issues that can effect the ? PCOS Office patient wishes to establish care to? [facility] in [place] Will forward this encounter to the schedulers in this office. ----- Message from Rema Murillo Pss sent at 08/23/2022 8:16 AM EST ----- Regarding: lashell/hoda Contact: Patient has been identified by name and Date of : Yes Patient: Saud Simpson Date of : 2000 Provider for this encounter : [facility] ob navigator No primary care provider on file. Reason for call: pt 5 weeks saus she has pcos Was an appointment scheduled: No Reason for requesting visit (RFV/signs and symptoms/diagnosis) : [facility] ob navigator Person calling: self Return call to: self Call patient at: on cell [phone] (home) [phone] (cell) Payor: [place] MEDICAID / Plan: [facility] MEDICAID / Product Type: Medicaid / Rema Murillo Pss documented in this encounter [facility] 07-20-2022 History of Presen t illness Narrative This note was created using Codoonriter. Subjective Saud Simpson is a 21 year [...] 6 hours as needed. 1 Each 0 Ytvydizurovkdnc-Wtiyotfbf-FP (BROMFED DM) 2-30-10 mg/5 mL syrup Take [...] Elisha Arteaga PA-C documented in this encounter [facility] 11-03-2021 Note Attestation signed by Natalie [...] her records last ultrasound on 10/30/21 with [facility] overall growth 34th and AC 14th, today overall 31st and AC at the 11th normal Doppler exam. S/p BMZ X one and repeat planned at 2000. This can be done at [facility] so the patient can be discharged to home. Her follow up ultrasound appointment is with [facility] 12/11/21 in [place]. Would prefer that she have her follow [...] Maternal skeletal dysplasia seen by genetics at [facility] and the couple has a good [...] Haynes MD Department of Obstetrics and Gynecology [facility] Discharge Summary Admission on 11/02/2021 6:07 PM Saud Simpson is a 20 y.o. at 31w0d who is admitted as a transport from [place] for FGR with intermittent reverse end diastolic flow on UA doppler. She received her first dose of BMZ on 11/02. Cat I FHT on monitor. Repeat growth US on 11/03 with [facility] US showed AGA growth with normal UA dopplers. Result was discussed with patient. She will go to [place] for her 2nd dose of BMZ at 6-8 pm, and follow up outpatient with Dr. Garcia for OB care. Meds: Medication List CONTINUE taking these medications albuterol (5 MG/ML) 0.5% nebulizer solution Commonly known as: PROVENTIL 1+1 PO Discharge to: Home Discharge date: 11/03/2021 Discharge Dx: Recurrent loss, asthma, anxiety/ADHD Follow up appointment with your doctor/hotel registration clerk - Keep next scheduled appointment Activity - Normal Activity Call your doctor/hotel registration clerk if you have: - leaking fluid - vaginal bleeding - regular contractions: More than 6 contractions in one hour - decreased movement - worsening abdominal (belly) pain - headache, blurry vision, increased swelling, upper abdominal pain Kaia Hale MD on 11/03/2021 at 12:15 PM [facility] 08-10-2021 Note Maternal Medic ine consultation report/ genetic counseling Consultation requested by . Reason for consultation: The patient has been sent to discuss anatomy and potential for hypochondroplasia. Pertinent historic points: History of aneuploidy is declined. 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 Previous genetic testing and screening": declined* MFM at [facility] ultrasound findings: 1. Single living intrauterine with [...] care today: 30 minutes. Marc Alejandro MD [facility] 03-03-2012 History of Past i llness Narrative Problem Noted Date Resolved Date Menometrorrhagia 03/03/2012 12/10/2013 documented as of this encounter (statuses as of 07/20/2022) [facility]09-10[facility]2012 History of Past illness Narrative* Problem Noted Date Resolved Date Menometrorrhagia 03/03/2012 12/10/2013 documented as of this encounter (statuses as of 08/23/2022) [facility] History of Past illness Narrative* Problem Noted Date Resolved Date Menometrorrhagia 03/03/2012 12/10/2013 documented as of this encounter (statuses as of 08/31/2022) [address]10-2012 History of Past illness Narrative* Problem Noted Date Resolved Date Menometrorrhagia 03/03/2012 12/10/2013 documented as of this encounter (statuses as of 09/07/2022) [address]10-2012 History of Past illness Narrative* Problem Noted Date Resolved Date Menometrorrhagia 03/03/2012 12/10/2013 documented as of this encounter (statuses as of 09/12/2022) [address]10-2012 History of Past illness Narrative* Problem Noted Date Resolved Date Menometrorrhagia 03/03/2012 12/10/2013 documented as of this encounter (statuses as of 09/13/2022) [address]10-2012 History of Past illness Narrative* Problem Noted Date Resolved Date Menometrorrhagia 03/03/2012 12/10/2013 documented as of this encounter (statuses as of 10/16/2022) [address]10-2012 History of Past illness Narrative* Problem Noted Date Resolved Date Menometrorrhagia 03/03/2012 12/10/2013 documented as of this encounter (statuses as of 10/16/2022) [address]2012 History of Past illness Narrative* Problem Noted Date Resolved Date Menometrorrhagia 03/03/2012 12/10/2013 documented as of this encounter (statuses as of 10/19/2022) [address]10-2012 History of Past illness Narrative* Problem Noted Date Resolved Date Menometrorrhagia 03/03/2012 12/10/2013 documented as of this encounter (statuses as of 10/23/2022) [address]2012 History of Past illness Narrative* Problem Noted Date Resolved Date Menometrorrhagia 03/03/2012 12/10/2013 documented as of this encounter (statuses as of 12/11/2022) [address]2012 History of Past illness Narrative* Problem Noted Date Diagnosed Date Resolved Date Menometrorrhagia 03/03/2012 12/10/2013 documented as of this encounter (statuses as of 01/02/2023) [address]10-2012 History of Past illness Narrative* Problem Noted Date Diagnosed Date Resolved Date Menometrorrhagia 03/03/2012 12/10/2013 documented as of this encounter (statuses as of 01/08/2023) [address]2012 History of Past illness Narrative* Problem Noted Date Diagnosed Date Resolved Date Menometrorrhagia 03/03/2012 12/10/2013 documented as of this encounter (statuses as of 01/24/2023) [address]10[address]2012 History of Past illness Narrative* Problem Noted Date Diagnosed Date Resolved Date Menometrorrhagia 03/03/2012 12/10/2013 documented as of this encounter (statuses as of 01/25/2023) [address]10[address]2012 History of Past illness Narrative* Problem Noted Date Diagnosed Date Resolved Date Menometrorrhagia 03/03/2012 12/10/2013 documented as of this encounter (statuses as of 01/29/2023) [address]10[address]2012 History of Past illness Narrative* Problem Noted Date Diagnosed Date Resolved Date Menometrorrhagia 03/03/2012 12/10/2013 documented as of this encounter (statuses as of 02/05/2023) [address]10[address]2012 History of Past illness Narrative* Problem Noted Date Diagnosed Date Resolved Date Menometrorrhagia 03/03/2012 12/10/2013 documented as of this encounter (statuses as of 02/26/2023) [address]10[address]2012 History of Past illness Narrative* Problem Noted Date Diagnosed Date Resolved Date Menometrorrhagia 03/03/2012 12/10/2013 documented as of this encounter (statuses as of 03/06/2023) [address]10[address]2012 History of Past illness Narrative* Problem Noted Date Diagnosed Date Resolved Date Menometrorrhagia 03/03/2012 12/10/2013 documented as of this encounter (statuses as of 03/07/2023) [address]10[address]2012 History of Past illness Narrative* Problem Noted Date Diagnosed Date Resolved Date Menometrorrhagia 03/03/2012 12/10/2013 documented as of this encounter (statuses as of 03/08/2023) [address]10[address]2012 History of Past illness Narrative* Problem Noted Date Diagnosed Date Resolved Date Menometrorrhagia 03/03/2012 12/10/2013 documented as of this encounter (statuses as of 03/15/2023) [address]10[address]2012 History of Past illness Narrative* Problem Noted Date Diagnosed Date Resolved Date Menometrorrhagia 03/03/2012 12/10/2013 documented as of this encounter (statuses as of 03/15/2023) [address]10[address]2012 History of Past illness Narrative* Problem Noted Date Diagnosed Date Resolved Date Menometrorrhagia 03/03/2012 12/10/2013 documented as of this encounter (statuses as of 04/12/2023) [address]10[address]2012 History of Past illness Narrative* Problem Noted Date Diagnosed Date Resolved Date Menometrorrhagia 03/03/2012 12/10/2013 documented as of this encounter (statuses as of 04/12/2023) [address]10[address]2012 History of Past illness Narrative* Problem Noted Date Diagnosed Date Resolved Date Menometrorrhagia 03/03/2012 12/10/2013 documented as of this encounter (statuses as of 04/19/2023) [address]10[address]2012 History of Past illness Narrative* Problem Noted Date Diagnosed Date Resolved Date Menometrorrhagia 03/03/2012 12/10/2013 documented as of this encounter (statuses as of 04/22/2023) [address]10[address]2012 History of Past illness Narrative* Problem Noted Date Diagnosed Date Resolved Date Menometrorrhagia 03/03/2012 12/10/2013 documented as of this encounter (statuses as of 04/22/2023) [address]10[address]2012 History of Past illness Narrative* Problem Noted Date Diagnosed Date Resolved Date Menometrorrhagia 03/03/2012 12/10/2013 documented as of this encounter (statuses as of 05/02/2023) [address]10[address]2012 History of Past illness Narrative* Problem Noted Date Diagnosed Date Resolved Date Menometrorrhagia 03/03/2012 12/10/2013 documented as of this encounter (statuses as of 05/08/2023) [address]2012 History of Past illness Narrative* Problem Noted Date Diagnosed Date Resolved Date Menometrorrhagia 03/03/2012 12/10/2013 documented as of this encounter (statuses as of 05/17/2023) [address]2012 History of Past illness Narrative* Problem Noted Date Diagnosed Date Resolved Date Menometrorrhagia 03/03/2012 12/10/2013 documented as of this encounter (statuses as of 06/04/2023) [address]2012 History of Past illness Narrative* Problem Noted Date Diagnosed Date Resolved Date Menometrorrhagia 03/03/2012 12/10/2013 documented as of this encounter (statuses as of 06/04/2023) [facility] History of Past illness Narrative* Problem Noted Date Diagnosed Date Resolved Date Menometrorrhagia 03/03/2012 12/10/2013 documented as of this encounter (statuses as of 08/06/2023) [facility] note* Diagnosis affected by growth restriction documented in this encounter [facility] Work Phone: Evaluation note* Diagnosis Viral URI with cough- Primary Acute upper respiratory infections of unspecified site documented in this encounter [facility] note* Diagnosis Supervision of high risk , [...] of congenital anomalies [facility] Diagnosis Encounter for supervision of normal [...] of congenital anomalies [facility] Diagnosis Maternal care due to low transverse uterine scar from previous delivery- Primary with history of section, antepartum 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, incidental [facility] Diagnosis Encounter for (NT) nuchal translucency scan- Primary Other specified screening Encounter for supervision of normal in multigravida 6 weeks gestation of state, incidental Hypochondroplasia syndrome Chondrodystrophy Maternal care due to low transverse uterine scar from previous delivery Encounter for screening for nuchal translucency [facility] Encounter for anatomic survey- Primary Obesity complicating , second trimester 19 weeks gestation of state, incidental [facility] Diagnosis Short interval between pregnancies affecting , antepartum- Primary with history of section, antepartum Hypochondroplasia syndrome Chondrodystrophy 19 weeks gestation of state, incidental [facility] Diagnosis Encounter for follow-up ultrasound of anatomy- Primary 22 weeks gestation of state, incidental Other obesity due to excess calories affecting in second trimester [facility] Diagnosis 23 weeks gestation of - Primary state, incidental with history of section, antepartum Rh negative state in antepartum period Rhesus isoimmunization affecting management of mother, antepartum condition [facility] Diagnosis with history of section, antepartum- Primary Short interval between pregnancies affecting , antepartum 25 weeks gestation of state, incidental headache in second trimester [facility] Diagnosis abnormality affecting management of mother, single or unspecified fetus- Primary Encounter for screening for cardiovascular disorders Screening for other and unspecified cardiovascular conditions 26 weeks gestation of state, incidental [facility] Diagnosis PREV DELIVERY [654.23]- Primary Previous delivery, antepartum condition or complication 27 weeks gestation of state, incidental [facility] Diagnosis Maternal care for (suspected) abnormality and damage, unspecified, fetus 1- Primary [facility] Diagnosis Abnormal glucose- Primary Other abnormal glucose [facility] Diagnosis Abnormal maternal glucose tolerance, antepartum- Primary [facility] Diagnosis Diet controlled gestational diabetes mellitus (GDM) in third trimester- Primary 32 weeks gestation of state, incidental PREV DELIVERY [654.23] Previous delivery, antepartum condition or complication Supervision of other high risk pregnancies, third trimester Need for influenza vaccination Need for prophylactic vaccination and inoculation against influenza [facility] Diagnosis Encounter for ultrasound to check growth- Primary Encounter for routine screening for malformation using ultrasonics Supervision of other high risk pregnancies, third trimester Hypochondroplasia syndrome Chondrodystrophy 37 weeks gestation of state, incidental [facility] Diagnosis with history of section, antepartum- Primary 37 weeks gestation of state, incidental [facility] Diagnosis Supervision of other high risk pregnancies, third trimester- Primary 38 weeks gestation of state, incidental [facility] Diagnosis 38 weeks gestation of - Primary state, incidental Supervision of other high risk pregnancies, third trimester Breech presentation, single or unspecified fetus History of section Other postprocedural status Obesity in Obesity complicating , childbirth, or the puerperium, unspecified as to episode of care or not applicable Request for sterilization [facility] Diagnosis Constipation, unspecified constipation type- Primary state Routine follow-up Lightheadedness Dizziness and giddiness Dizziness Dizziness and giddiness Vaginal bleeding Other specified noninflammatory disorder of vagina [facility] Diagnosis Intertrigo- Primary Other specified erythematous condition [facility] Diagnosis depression- Primary Mental disorders of mother, Menorrhagia with regular cycle Excessive or frequent menstruation care and examination Routine follow-up Encounter for initial prescription of contraceptive pills General counseling for prescription of oral contraceptives [facility]* Diagnosis Screen for STD (sexually transmitted disease)- Primary Screening examination for venereal disease Exposure to sexually transmitted disease (STD) Contact with or exposure to other communicable diseases [facility]* Instructions* Kaia Hale MD - 11/03/2021 Follow up appointment with your doctor/hotel registration clerk - Keep next scheduled appointment Activity - Normal Activity Call your doctor/hotel registration clerk if you have: - leaking fluid - [...] related visit on 11/03/21. Kaia Hale MD [facility] Work Phone: Reason for referral (narrative)* Diagnostic Procedure Only (Routine) - Closed Specialty Diagnoses / Procedures Referred By Heather chung Referred To Contact [facility] Diagnoses Encounter for follow-up ultrasound of anatomy Procedures OBSTETRIC ULTRASOUND WHI US PREG UTERUS AFTER 1ST TRIMEST GESTATION Constance Suarez APRN.CNM [address] [place] [address] [facility] [address] [facility] [place] [address] Referral ID Status Reason Start Date Expiration Date V isits Requested Visits Authorized [id number] Closed Auto-Generate d Referral 01/01/2023 01/01/2024 1 1 [facility] Summary Purpose Family History No Family [...] delivery Procedures CONSULT TO MATERNAL MEDI OFFICE/OUTPATIENT [facility] 60-74 MINUTES Sherin Decker APRN.JASON [address] [place] [address] Referral ID Status Reason Start Date Expiration Date Visits Requested Visits Authorized [id number] Authorized PCP Requested Referral Auto-Generate d Referral 09/12/2022 09/12/2023 1 1 Specialty Diagnoses / Procedures Referred By Heather t Referred To Contact [facility] Diagnoses Encounter for supervision of normal in multigravida 6 weeks gestation of Procedures NUCHAL TRANSLUCENCY WHI US NUCHAL TRANSLUCENCY 1ST GESTATION Sherin Decker APRN.JASON [address] [place] [address] [facility] [address] [facility] [place] [address] Referral ID Status Reason Start Date Expiration Date Visits Requested Visits Authorized [id number] Authorized Auto-Generat ed Referral 09/12/2022 09/12/2023 1 1 Specialty Diagnoses / Procedures Referred By Heather chung Referred To Contact [facility] Diagnoses Encounter for supervision of normal in multigravida 6 weeks gestation of Procedures OBSTETRIC ULTRASOUND WHI US PREG UTERUS AFTER 1ST TRIMEST GESTATION Sherin Decker APRN.[facility] [address] [place] [address] [facility] [address] [place] [address] Referral ID Status Reason Start Date Expiration Date Visits Requested Visits Authorized [id number] Pending Review Auto-Generat ed Referral 09/12/2022 09/12/2023 1 1 Specialty Diagnoses / Procedures Referred By Contac t Referred To Contact Diagnoses 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 Procedures CONSULT TO MEDICAL GENETICS - MEDICAL GENETICS COUNSELING EACH 30 MINUTES Luís Bland MD [address] [place] [address] [address] Referral ID Status Reason Start Date Expiration Date Visits Requested Visits Authorized [id number] Authorized PCP Requested Referral Auto-Generate d Referral 10/16/2022 10/16/2023 1 1 Additional Source Comments INFORMATION SOURCE (unrecogn ized section and content) DATE CREATED AUTHOR 10/22/2018 [facility] ([place]) DATE CREATED AUTHOR AUTHOR'S ORGANIZ ATION 11/12/2021 [facility] DATE CREATED AUTHOR AUTHOR'S ORGANIZ ATION 12/11/2021 [facility] DATE CREATED AUTHOR AUTHOR'S ORGANIZ ATION 03/06/2023 [facility] DATE CREATED AUTHOR AUTHOR'S ORGANIZ ATION 03/29/2024 [facility] DATE CREATED AUTHOR AUTHOR'S ORGANIZ ATION 03/26/2025 [facility] Reason for Visit (unrecogniz ed section and content) Reason Comments Other Intermittent Reverse d Endiastolic Flow Reason Comments Cough Cough, fever, conges tion, ST, SCHULTZ and bodyaches x 2 days Reason Comments Last Dipper - Other OB Angel Luis pool Reason Onset Date Comments Early OB spotting 08/28/2022 Reason Comments Care Reason Comments Care Reason Comments Forms praf Reason Onset Date Comments Care 10/16/2022 Reason Comments Consult Ordered by Sherin Decker US Specialty Diagnoses / Procedures Referred By Contac t Referred To Contact [facility] Diagnoses Encounter for supervision of normal in multigravida 6 weeks gestation of Procedures NUCHAL TRANSLUCENCY WHI US NUCHAL TRANSLUCENCY 1ST GESTATION Sherin Decker APRN.CNM [address] [place] [address] [facility] [address] [place] [id number] Referral ID Status Reason Start Date Expiration Date V isits Requested Visits Authorized [id number] Closed Auto-Generate d Referral 09/12/2022 09/12/2023 1 1 Reason Comments Patient Question Reason Comments NIPT Reason Comments US Specialty Diagnoses / Procedures Referred By Contac t Referred To Contact [facility] Diagnoses Encounter for supervision of normal in multigravida 6 weeks gestation of Procedures OBSTETRIC ULTRASOUND WHI US PREG UTERUS AFTER 1ST TRIMEST GESTATION Sherin eDcker APRN.CNM [address] [place] [address] [facility] [email or web address] [address] Referral ID Status Reason Start Date Expiration Date V isits Requested Visits Authorized [id number] Closed Auto-Generate d Referral 09/12/2022 09/12/2023 1 1 Reason Onset Date Comments Care 12/11/2022 Reason Comments US Specialty Diagnoses / Procedures Referred By Contac t Referred To Contact [facility] Diagnoses Encounter for follow-up ultrasound of anatomy Procedures OBSTETRIC ULTRASOUND WHI US PREG UTERUS AFTER 1ST TRIMEST / GESTATION Constance Suarez APRN.CNM [address] [place] [address] [facility] [email or web address] [address] Referral ID Status Reason Start Date Expiration Date V isits Requested Visits Authorized [id number] Closed Auto-Generate d Referral 01/01/2023 01/01/2024 1 1 Reason Onset Date Comments Care 01/08/2023 Reason Comments OB SCHULTZ Reason Onset Date Comments Care 01/24/2023 Reason Onset Date Comments Care 02/05/2023 Reason Comments Appointment Reason Comments Orders Reason Onset Date Comments Care 03/14/2023 Immunizations 03/14/2023 Flu vaccination Reason Comments Breast Pump Specialty Diagnoses / Procedures Referred By Contac t Referred To Contact [facility] Diagnoses 35 weeks gestation of Supervision of other high risk pregnancies, third trimester Procedures OBSTETRIC ULTRASOUND WHI US PREG UTERUS AFTER 1ST TRIMEST GESTATION Lise Concepcion MD [address] [place] [address] [facility] [address] [place] [address] Referral ID Status Reason Start Date Expiration Date V isits Requested Visits Authorized [id number] Closed Auto-Generate d Referral 03/29/2023 03/28/2024 1 1 Reason Onset Date Comments Care 04/12/2023 Reason Onset Date Comments Care 04/19/2023 Reason Onset Date Comments Care 04/22/2023 Reason Comments Bleeding Reason Comments Follow Up Pp bleeding Reason Comments Derm Problem redness and soreness on right side area x 2 days, c- section / Reason Comments Medication Follow-up Reason Comments STD Reason Comments Missed Menses Scheduled Active and Recently Administ ered Medications (unrecognized section and content) Medication Order 11/01/2021 11/02/2021 11/03/2021 betamethasone acetate-betamethasone sodium phosphate (CELESTONE) injection 12 mg 12 mg, IntraMUSCular, EVERY 24 HOURS, 2 doses, First dose on Sat11/02/21 at 2014, Last dose on Sat11/03/21 at 2014, For labor 2037 (Given - Provider: Ernestine Cotton, SONIA) 2014 (Due) vitamin 27-1 MG tablet 1 tablet 1 tablet, Oral, DAILY, First dose on Sat11/02/21 at 1930, Until Discontinued 2035 (Given - Provider: Ernestine Cotton RN) 111 (Given - Provider: Amira Milian RN) sodium chloride flush 0.9 % injection 10 mL 10 mL, IntraVENous, EVERY 12 HOURS SCHEDULED (2 times per day), First dose on Sat11/02/21 at 2100, Until Discontinued 2034 (Given - [...] or prosecute any alcohol or drug abuse patient.[facility] the event this information is protected by the Federal Confidentiality of Alcohol and Drug Abuse Patient Records regulations: The Federal rules restrict any use of the information to criminally investigate or prosecute any alcohol or drug abuse patient.[facility] the event this information is protected by the Federal Confidentiality of Alcohol and Drug Abuse Patient Records regulations: The Federal rules restrict any use of the information to criminally investigate or prosecute any alcohol or drug abuse patient.[facility] the event this information is protected by the Federal Confidentiality of Alcohol and Drug Abuse Patient Records regulations: The Federal rules restrict any use of the information to criminally investigate or prosecute any alcohol or drug abuse patient.[facility] the event this information is protected by the Federal Confidentiality of Alcohol and Drug Abuse Patient Records regulations: The Federal rules restrict any use of the information to criminally investigate or prosecute any alcohol or drug abuse patient.[facility] the event this information is protected by the Federal Confidentiality of Alcohol and Drug Abuse Patient Records regulations: The Federal rules restrict any use of the information to criminally investigate or prosecute any alcohol or drug abuse patient.[facility] the event this information is protected by the Federal Confidentiality of Alcohol and Drug Abuse Patient Records regulations: The Federal rules restrict any use of the information to criminally investigate or prosecute any alcohol or drug abuse patient.[facility] the event this information is protected by the Federal Confidentiality of Alcohol and Drug Abuse Patient Records regulations: The Federal rules restrict any use of the information to criminally investigate or prosecute any alcohol or drug abuse patient.[facility] the event this information is protected by the Federal Confidentiality of Alcohol and Drug Abuse Patient Records regulations: The Federal rules restrict any use of the information to criminally investigate or prosecute any alcohol or drug abuse patient.[facility] the event this information is protected by the Federal Confidentiality of Alcohol and Drug Abuse Patient Records regulations: The Federal rules restrict any use of the information to criminally investigate or prosecute any alcohol or drug abuse patient.[facility] HospitalIn the event this information is protected by the Federal Confidentiality of Alcohol and Drug Abuse Patient Records regulations: The Federal rules restrict any use of the information to criminally investigate or prosecute any alcohol or drug abuse patient.[facility] HospitalIn the event this information is protected by the Federal Confidentiality of Alcohol and Drug Abuse Patient Records regulations: The Federal rules restrict any use of the information to criminally investigate or prosecute any alcohol or drug abuse patient.[facility] HospitalIn the event this information is protected by the Federal Confidentiality of Alcohol and Drug Abuse Patient Records regulations: The Federal rules restrict any use of the information to criminally investigate or prosecute any alcohol or drug abuse patient.[facility] HospitalIn the event this information is protected by the Federal Confidentiality of Alcohol and Drug Abuse Patient Records regulations: The Federal rules restrict any use of the information to criminally investigate or prosecute any alcohol or drug abuse patient.[facility] HospitalIn the event this information is protected by the Federal Confidentiality of Alcohol and Drug Abuse Patient Records regulations: The Federal rules restrict any use of the information to criminally investigate or prosecute any alcohol or drug abuse patient.[facility] HospitalIn the event this information is protected by the Federal Confidentiality of Alcohol and Drug Abuse Patient Records regulations: The Federal rules restrict any use of the information to criminally investigate or prosecute any alcohol or drug abuse patient.[facility] HospitalIn the event this information is protected by the Federal Confidentiality of Alcohol and Drug Abuse Patient Records regulations: The Federal rules restrict any use of the information to criminally investigate or prosecute any alcohol or drug abuse patient.[facility] HospitalIn the event this information is protected by the Federal Confidentiality of Alcohol and Drug Abuse Patient Records regulations: The Federal rules restrict any use of the information to criminally investigate or prosecute any alcohol or drug abuse patient.[facility] HospitalIn the event this information is protected by the Federal Confidentiality of Alcohol and Drug Abuse Patient Records regulations: The Federal rules restrict any use of the information to criminally investigate or prosecute any alcohol or drug abuse patient.[facility] HospitalIn the event this information is protected by the Federal Confidentiality of Alcohol and Drug Abuse Patient Records regulations: The Federal rules restrict any use of the information to criminally investigate or prosecute any alcohol or drug abuse patient.[facility] HospitalIn the event this information is protected by the Federal Confidentiality of Alcohol and Drug Abuse Patient Records regulations: The Federal rules restrict any use of the information to criminally investigate or prosecute any alcohol or drug abuse patient.[facility] HospitalIn the event this information is protected by the Federal Confidentiality of Alcohol and Drug Abuse Patient Records regulations: The Federal rules restrict any use of the information to criminally investigate or prosecute any alcohol or drug abuse patient.[facility] HospitalIn the event this information is protected by the Federal Confidentiality of Alcohol and Drug Abuse Patient Records regulations: The Federal rules restrict any use of the information to criminally investigate or prosecute any alcohol or drug abuse patient.[facility] HospitalIn the event this information is protected by the Federal Confidentiality of Alcohol and Drug Abuse Patient Records regulations: The Federal rules restrict any use of the information to criminally investigate or prosecute any alcohol or drug abuse patient.[facility] HospitalIn the event this information is protected by the Federal Confidentiality of Alcohol and Drug Abuse Patient Records regulations: The Federal rules restrict any use of the information to criminally investigate or prosecute any alcohol or drug abuse patient.[facility] HospitalIn the event this information is protected by the Federal Confidentiality of Alcohol and Drug Abuse Patient Records regulations: The Federal rules restrict any use of the information to criminally investigate or prosecute any alcohol or drug abuse patient.[facility] HospitalIn the event this information is protected by the Federal Confidentiality of Alcohol and Drug Abuse Patient Records regulations: The Federal rules restrict any use of the information to criminally investigate or prosecute any alcohol or drug abuse patient.[facility] HospitalIn the event this information is protected by the Federal Confidentiality of Alcohol and Drug Abuse Patient Records regulations: The Federal rules restrict any use of the information to criminally investigate or prosecute any alcohol or drug abuse patient.[facility] HospitalIn the event this information is protected by the Federal Confidentiality of Alcohol and Drug Abuse Patient Records regulations: The Federal rules restrict any use of the information to criminally investigate or prosecute any alcohol or drug abuse patient.[facility] HospitalIn the event this information is protected by the Federal Confidentiality of Alcohol and Drug Abuse Patient Records regulations: The Federal rules restrict any use of the information to criminally investigate or prosecute any alcohol or drug abuse patient.[facility] HospitalIn the event this information is protected by the Federal Confidentiality of Alcohol and Drug Abuse Patient Records regulations: The Federal rules restrict any use of the information to criminally investigate or prosecute any alcohol or drug abuse patient.[facility] HospitalIn the event this information is protected by the Federal Confidentiality of Alcohol and Drug Abuse Patient Records regulations: The Federal rules restrict any use of the information to criminally investigate or prosecute any alcohol or drug abuse patient.[facility] HospitalIn the event this information is protected by the Federal Confidentiality of Alcohol and Drug Abuse Patient Records regulations: The Federal rules restrict any use of the information to criminally investigate or prosecute any alcohol or drug abuse patient.[facility] HospitalIn the event this information is protected by the Federal Confidentiality of Alcohol and Drug Abuse Patient Records regulations: The Federal rules restrict any use of the information to criminally investigate or prosecute any alcohol or drug abuse patient.[facility] HospitalIn the event this information is protected by the Federal Confidentiality of Alcohol and Drug Abuse Patient Records regulations: The Federal rules restrict any use of the information to criminally investigate or prosecute any alcohol or drug abuse patient.[facility] HospitalIn the event this information is protected by the Federal Confidentiality of Alcohol and Drug Abuse Patient Records regulations: The Federal rules restrict any use of the information to criminally investigate or prosecute any alcohol or drug abuse patient.[facility] HospitalIn the event this information is protected by the Federal Confidentiality of Alcohol and Drug Abuse Patient Records regulations: The Federal rules restrict any use of the information to criminally investigate or prosecute any alcohol or drug abuse patient.[facility] FOR RECORDS PERTAINING TO PATIENTS WHO [...] BE BASED ON THE PRIMARY CLINICAL RECORDS. [facility] [employer] [facility]. provides no warranty or guarantee of the accuracy or completeness of information in this document.
--- NOTE | 2025-06-21 07:27 | EX.ED.DYSGE1 ---
HPI History of Present Illness Chief Complaint: Cold Sx Informant: patient Narrative Narrative: Patient is a 24-year-old female with past medical history of asthma as well as anxiety and depression. Patient reports she has had 4 to 5 days of generalized fatigue with congestion cough sore throat and muscle aches. She states that she felt symptoms would improve after this amount of time but they have not done so. She denies any known sick contacts but as symptoms are persisting and progressing she has concern for infection and comes in for evaluation [facility] Medical History depression Depression Family history of hearing loss at age younger than 7 years Chlamydia infection affecting Infertility Anxiety Gastric reflux Difficulty balancing Asthma Home Medications Medication Instructions Recorded Last Taken Type albuterol sulfate 90 mcg/actuation 2 puff inhalation Q6H PRN asthma 04/26/23 Unknown History aerosol inhaler (Ventolin HFA) acetaminophen 500 mg tablet 1,000 mg (2 x 500 mg) PO Q6H #0 04/28/23 Unknown Rx tabs ibuprofen 600 mg tablet 600 mg PO Q6H #0 tabs 04/28/23 Unknown Rx sennosides 8.6 mg-docusate sodium 1 - 2 tab PO DAILY #0 tabs 04/28/23 06/12/23 Rx 50 mg tablet (Stool Softener-Stimulant Laxative) escitalopram oxalate 10 mg tablet 10 mg PO DAILY 06/12/23 06/12/23 History nystatin 100,000 unit/gram topical 1 applic topical TID 06/12/23 06/12/23 History powder (Nystop) naproxen 500 mg tablet (Naprosyn) 500 mg PO BID PRN pain #20 tabs 03/05/25 Unknown Rx hydrocodone-homatropine 5 mg-1.5 5 ml PO 4X/DAY PRN cough 7 days 06/21/25 Unknown Rx mg/5 mL (5 mL) oral solution #140 mL (Hycodan) [id number] 3.5 2 drp RIGHT EYE 4X/DAY 7 days #5 mL 06/21/25 Unknown Rx mg/mL-10,000 unit/mL-0.1% eye drops (Maxitrol) ondansetron 4 mg disintegrating 4 mg PO TID PRN nausea and 06/21/25 Unknown Rx tablet vomiting #21 tabs prednisone 20 mg tablet 40 mg (2 x 20 mg) PO DAILY 5 days 06/21/25 Unknown Rx #10 tabs Allergy/AdvReac Type Severity Reaction Status Date / Time amoxicillin (Amoxicillin) Allergy Hives Verified 06/21/25 05:43 codeine Allergy Nausea Verified 06/21/25 05:43 Penicillins Allergy Hives Verified 06/21/25 05:43 Milk Containing Products AdvReac Upset Verified 06/21/25 05:43 (Dairy) Stomach Family History Grandfather Heart disease Grandmother Heart disease Mother Breast cancer Mitral valve prolapse Surgical History Delivery by section History of knee surgery Social History Smoking Status: Never smoker ROS ROS ED Constitutional Constitutional ED: Reports chills, fever(s), subjective and other Details: Positive fatigue ENT ENT ED: Reports rhinorrhea and sore throat Cardiovascular Cardiovascular: Denies chest pain Respiratory/Chest Respiratory/Chest: Reports cough; Denies dyspnea Gastrointestinal Gastrointestinal: Reports nausea; Denies abdominal pain, diarrhea or vomiting Genitourinary Genitourinary ED: Denies dysuria Musculoskeletal Musculoskeletal: Reports myalgias Integumentary Denies rash Neurologic Neurologic: Reports headache(s) Hematologic/Lymphatic Hematologic/Lymphatic: Denies easy bleeding or easy bruising EXAM Physical Exam Const Vital Signs: 06/21/25 05:43 06/21/25 05:45 06/21/25 07:42 Temperature 98 F 98.4 F Temperature Source Oral Pulse Rate 100 90 Respiratory Rate 18 18 Respiratory Pattern Normal Blood Pressure 114/82 H 110/78 Blood Pressure Mean 92 88 Pulse Ox 79 99 Positive well nourished and well developed General Appearance ED: well developed; Negative for pallor HEENT HEENT Narrative: Normocephalic atraumatic Bilateral TMs are retracted but show no secondary findings to suggest infection Nasal mucosa is hyperemic and boggy with enlarged inferior nasal turbinate Cobblestoning is noted in the posterior pharynx consistent with sinus drainage without airway edema or compromise; no secondary findings to suggest infection Eyes PERRL and EOMs intact bilaterally Eyes Narrative: There is mild right conjunctival fullness/erythema compared to the left with scleral injection and clear discharge General Eye ED: Negative for scleral icterus Neck supple Neck Narrative: No nuchal rigidity or meningeal signs Positive anterior cervical lymphadenopathy is noted Resp normal respiratory effort Resp Narrative: Breath sounds are diminished throughout with faint expiratory wheeze in the bilateral bases but no signs of respiratory distress Cardio regular rate and regular rhythm GI normal to inspection, nondistended, normoactive bowel sounds, non-tender, non-distended and no masses GI Narrative: No voluntary guarding no rigidity or pulsatile mass Auscultation: normoactive bowel sounds Palpation: soft Extremity normal to inspection Extremity Narrative: No asymmetric edema no pitting edema negative Homans' sign bilaterally Neuro oriented x3, CN's II-XII intact bilaterally and no sensory deficits noted Sensorium / Orientation: alert Motor Exam: strength 5/5 throughout Psych Mood & Affect: anxious Skin no rashes or lesions noted General Skin Exam: Negative for jaundice or pallor MDM MDM MDM Narrative Medical decision making narrative: Patient arrived to the ER with stable vitals. She reported 4 to 5 days of fatigue objective fevers chills cough congestion and sore throat and the symptoms are most consistent with acute viral syndrome such as COVID influenza or RSV. As vitals are stable she is not hypoxic or in respiratory distress I do not feel the need for imaging studies or blood work. As patient symptoms are concerning for viral infection a viral swab will be obtained. In order to provide comfort from her symptoms an IV will be established and she will be given IV fluid as well as Toradol and Decadron. The patient's viral swab was negative for COVID influenza or RSV but her physical exam was suggest she then has a different virus such as rhinovirus or human metapneumovirus. After receiving her treatment she reports feeling much better and her vitals are stable. Therefore I do not feel there is need for further intervention such as x-ray or blood work. She does show asymmetric conjunctivitis and this is most likely viral in nature as well but in order to cover for potential secondary infection she will be prescribed Maxitrol. Otherwise as she is not having respiratory distress or hypoxia or need for supplemental oxygen or signs of sepsis there is no need for further intervention and she is otherwise safe for discharge History & Record Review Discussion w/independent historian: Patient Discharge Plan Triage Chief Complaint: Cold Sx ED Provider: Luís Mason Dx/Rx/DC Orders Clinical Impression: Viral syndrome, Conjunctivitis, Depression, Asthma Instructions: ED Conjunctivitis, Nonspecific, ED Viral Syndrome (Adult) Prescriptions: New ondansetron 4 mg tablet,disintegrating 4 mg PO TID PRN (Reason: nausea and vomiting) Qty: 21 0RF prednisone 20 mg tablet 40 mg PO DAILY 5 Days Qty: 10 0RF neomycin-polymyxin B-dexameth [Maxitrol] 3.5mg/mL-10,000 unit/mL-0.1 % drops,suspension 2 drp RIGHT EYE 4X/DAY 7 Days Qty: 5 0RF hydrocodone-homatropine [Hycodan] 5-1.5 mg/5 mL (5 mL) solution 5 ml PO 4X/DAY PRN (Reason: cough) 7 Days Qty: 140 0RF No Action albuterol sulfate [Ventolin HFA] 90 mcg/actuation HFA aerosol inhaler 2 puff INHALATION Q6H PRN (Reason: asthma) Patient Comments: INHALE 2 PUFFS BY MOUTH DIRECTED EVERY 6 HOURS NEEDED sennosides-docusate sodium [Stool Softener-Stimulant Laxat] 8.6-50 mg Tablet 1 - 2 tab PO DAILY Qty: 0 0RF acetaminophen 500 mg Tablet 1,000 mg PO Q6H Qty: 0 0RF ibuprofen 600 mg Tablet 600 mg PO Q6H Qty: 0 0RF escitalopram oxalate 10 mg tablet 10 mg PO DAILY nystatin [Nystop] 100,000 unit/gram powder 1 applic TOPICAL TID Patient Comments: OVER SCAR naproxen [Naprosyn] 500 mg tablet 500 mg PO BID PRN (Reason: pain) Qty: 20 0RF Primary Care Provider: Care Physician,No Primary Referrals: Yandel Hallman MD [Med Staff - Active Staff, Family Practice] Care Physician,No Primary [Primary Care Provider, Medical] Activity Restrictions/Additional Instructions: Your test for COVID influenza and RSV was negative indicating that your symptoms are from a different viral infection. Symptoms from viral syndrome can last 2 to 3 weeks on average. Take the prescribed medication as directed to help control symptoms and return to the ER should you have any further concerns Print Language: Estonian Disposition Disposition: Home, Self Care Discharge Date/Time: 06/21/25 07:46
[2025-06-21 07:42] VITALS: BP 110/78; PULSE 90; RESP 18; TEMP 36.9; O2SAT 99
== END 2025-06-21 07:46 | disposition home or self-care (01) ==
PROVIDERS: Emergency Provider Emergency Medicine; Visit Provider Emergency Medicine
DX: B34.9 Viral infection, unspecified (principal); J45.909 Unspecified asthma, uncomplicated; H10.31 Unspecified acute conjunctivitis, right eye; Z11.52 Encounter for screening for COVID-19
CPT/HCPCS: 87631; 96361; 96374; 96375; 99283; A4216; J2405